=== PATIENT | female | born 1960 | race Caucasian/White ===

== ENCOUNTER 2017-02-10 22:50 | Inpatient (IN) | payer BC ==
[~2017-02-10] VITALS: Ht 175.3 cm; Wt 99.1 kg
[2017-02-10] MEDS ORDERED: ADENOSINE 6 MG/2 ML VIAL. IV ONE (23:05)
[2017-02-10] MEDS ORDERED: dilTIAZem IV PUSH 25 MG/5 ML VIAL ONE (23:05)
--- NOTE | 2017-02-10 23:20 | PHYS DOC ---
Adult General Chief Complaint Chief Complaint: CHEST PAIN HPI HPI Patient is a 56 year old female who presents with complaint of chest pain and dizziness that started approximately 1 hour prior to arrival. The patient states that she was driving home from a fast food restaurant and had consumed a slushy drink prior to onset of symptoms. Patient states that she started feeling pressure pain in her chest and stated that she was becoming very dizzy when trying to stand up. Due to persistent symptoms she came to the emergency department for evaluation. Patient states that she has had history of similar symptoms approximately 30 years ago and had to be on digoxin therapy but states that she was taken off of this medication shortly after and has not had any problems over the past 30 years. Patient states she recently had a cardiac workup one year ago and was told that she "didn't have any problems." Patient denies any fever or other symptoms earlier today. Patient states that she does not follow the primary doctor at this time. On my evaluation, patient rates her pain as 7 out of 10. Patient has not taken any medications to help with her symptoms at this time. Review of Systems Review of Systems Constitutional: Dizziness, denies fever or chills [] Eyes: Denies change in visual acuity, redness, or eye pain [] HENT: Denies nasal congestion or sore throat [] Respiratory: Denies cough or shortness of breath [] Cardiovascular: Chest pain, denies edema [] GI: Denies abdominal pain, nausea, vomiting, bloody stools or diarrhea [] : Denies dysuria or hematuria [] Musculoskeletal: Denies back pain or joint pain [] Integument: Denies rash or skin lesions [] Neurologic: Denies headache, focal weakness or sensory changes [] Current Medications Current Medications Current Medications Medications (Trade) Dose Ordered Sig/[facility] Start Time Stop Time Status Last Admin Dose Admin Adenosine (Adenocard) 6 mg STK-MED ONCE 02/10/17 23:05 02/10/17 23:06 DC Aspirin (Children'S Aspirin) 324 mg 1X ONCE 02/10/17 23:30 02/10/17 23:31 DC 02/10/17 23:30 324 MG Digoxin (Lanoxin) 500 mcg 1X ONCE 02/11/17 00:15 02/11/17 00:16 DC 02/11/17 00:20 500 MCG Diltiazem HCl (Cardizem) 25 mg 1X ONCE 02/10/17 23:45 02/10/17 23:46 DC 02/10/17 23:30 25 MG Diltiazem HCl 125 mg/Dextrose 125 ml @ 10 mls/hr 1X ONCE 02/10/17 23:30 02/11/17 11:59 02/10/17 23:42 10 MLS/HR Sodium Chloride 1,000 ml @ 100 mls/hr Q10H 02/10/17 23:30 02/11/17 09:29 02/10/17 23:30 100 MLS/HR Allergies Allergies Allergies Coded Allergies Type Severity Reaction Last Updated Verified Penicillins Allergy Intermediate 02/10/17 Yes Sulfa (Sulfonamide Antibiotics) Allergy Intermediate 02/10/17 Yes acetaminophen Allergy Intermediate 02/10/17 Yes oxycodone Allergy Intermediate 02/10/17 Yes prednisone Allergy Intermediate 02/10/17 Yes Physical Exam Physical Exam Constitutional: Alert, afebrile, appears in moderate discomfort. [] HENT: Normocephalic, atraumatic, bilateral external ears normal, oropharynx moist, no oral exudates, nose normal. [] Eyes: PERRLA, EOMI, conjunctiva normal, no discharge. [] Neck: Normal range of motion, no tenderness, supple, no stridor. [] Cardiovascular: Tachycardia, irregular rhythm, no murmur [] Lungs & Thorax: Bilateral breath sounds clear to auscultation [] Abdomen: Bowel sounds normal, soft, no tenderness, no masses, no pulsatile masses. [] Skin: Warm, dry, no erythema, no rash. [] Back: No tenderness, no CVA tenderness. [] Extremities: No tenderness, no cyanosis, no clubbing, ROM intact, no edema. [] Neurologic: Alert and oriented X 3, normal motor function, normal sensory function, no focal deficits noted. [] Current Patient Data Vital Signs Vital Signs Date Time Temp Pulse Resp B/P (MAP) Pulse Ox O2 Delivery O2 Flow Rate FiO2 02/11/17 00:20 144 168/86 02/11/17 00:11 16 96 Room Air 02/10/17 23:13 98.0 98.0 Lab Values Laboratory Tests Test 02/10/17 23:11 02/10/17 23:35 White Blood Count 3.6 x10^3/uL (4.0-11.0) L Red Blood Count 4.99 x10^6/uL (3.50-5.40) Hemoglobin 13.7 g/dL (12.0-15.5) Hematocrit 42.3 % (36.0-47.0) Mean Corpuscular Volume 85 fL (79-100) Mean Corpuscular Hemoglobin 28 pg (25-35) Mean Corpuscular Hemoglobin Concent 33 g/dL (31-37) Red Cell Distribution Width 14.3 % (11.5-14.5) Platelet Count 112 x10^3/uL (140-400) L Neutrophils (%) (Auto) 41 % (31-73) Lymphocytes (%) (Auto) 52 % (24-48) H Monocytes (%) (Auto) 5 % (0-9) Eosinophils (%) (Auto) 1 % (0-3) Basophils (%) (Auto) 1 % (0-3) Neutrophils # (Auto) 1.5 x10^3uL (1.8-7.7) L Lymphocytes # (Auto) 1.9 x10^3/uL (1.0-4.8) Monocytes # (Auto) 0.2 x10^3/uL (0.0-1.1) Eosinophils # (Auto) 0.0 x10^3/uL (0.0-0.7) Basophils # (Auto) 0.0 x10^3/uL (0.0-0.2) Segmented Neutrophils % 40 % (35-66) Band Neutrophils % 1 % (0-9) Lymphocytes % 46 % (24-48) Atypical Lymphocytes % (Manual) 7 % (0-0) H Monocytes % 5 % (0-10) Eosinophils % 1 % (0-5) Platelet Estimate Decreased (ADEQUATE) Prothrombin Time 12.2 SEC (11.7-14.0) Prothrombin Time INR 1.0 (0.8-1.1) Sodium Level 146 mmol/L (136-145) H Potassium Level 4.0 mmol/L (3.5-5.1) Chloride Level 107 mmol/L (98-107) Carbon Dioxide Level 29 mmol/L (21-32) Anion Gap 10 (6-14) Blood Urea Nitrogen 22 mg/dL (7-20) H Creatinine 1.0 mg/dL (0.6-1.0) Estimated GFR (Cockcroft-Gault) 57.4 Glucose Level 128 mg/dL (70-99) H Calcium Level 9.3 mg/dL (8.5-10.1) Magnesium Level 2.1 mg/dL (1.8-2.4) Total Bilirubin 0.3 mg/dL (0.2-1.0) Direct Bilirubin 0.1 mg/dL (0.0-0.2) Aspartate Amino Transferase (AST) 29 U/L (15-37) Alanine Aminotransferase (ALT) 42 U/L (14-59) Alkaline Phosphatase 150 U/L (46-116) H Creatine Kinase 138 U/L (26-192) Creatine Kinase MB (Mass) 1.1 ng/mL (0.0-3.6) Creatine Kinase MB Relative Index 0.8 % (0-4) Troponin I Quantitative < 0.017 ng/mL (0.000-0.055) WT-Gjx-I-Type Natriuretic Peptide 52 pg/mL (0-124) Total Protein 7.5 g/dL (6.4-8.2) Albumin 3.8 g/dL (3.4-5.0) Urine Collection Type Unknown Urine Color Yellow Urine Clarity Clear Urine pH 6.5 Urine Specific Hernandez <=1.005 Urine Protein Negative mg/dL (NEG-TRACE) Urine Glucose (UA) Negative mg/dL (NEG) Urine Ketones (Stick) Negative mg/dL (NEG) Urine Blood Negative (NEG) Urine Nitrite Negative (NEG) Urine Bilirubin Negative (NEG) Urine Urobilinogen Dipstick 0.2 mg/dL (0.2 mg/dL) Urine Leukocyte Esterase Negative (NEG) Urine RBC 0 /HPF (0-2) Urine WBC Occ /HPF (0-4) Urine Squamous Epithelial Cells Few /LPF Urine Bacteria 0 /HPF (0-FEW) Urine Opiates Screen Neg (NEG) Urine Methadone Screen Neg (NEG) Urine Barbiturates Neg (NEG) Urine Phencyclidine Screen Neg (NEG) Urine Amphetamine/Methamphetamine Neg (NEG) Urine Benzodiazepines Screen Neg (NEG) Urine Cocaine Screen Neg (NEG) Urine Cannabinoids Screen Neg (NEG) Urine Ethyl Alcohol Neg (NEG) Laboratory Tests 02/10/17 23:11 Laboratory Tests 02/10/17 23:11 EKG EKG Interpreted by me: Heart rate 188, atrial fibrillation with rapid ventricular response, normal axis, no acute ST/T-wave abnormalities present [] Radiology/Procedures Radiology/Procedures One view AP chest x-ray interpreted by me: No infiltrates, no effusions, normal cardiac silhouette [] Course & Med Decision Making Course & Med Decision Making Pertinent Labs and Imaging studies reviewed. (See chart for details) Patient found to be in A. fib with RVR. The patient was started on IV diltiazem in the emergency department and was given a total of 45 mg of IV push Cardizem with mild reduction in heart rate to the 150s. I consulted Dr. Head of cardiology who recommended that the patient be given a loading dose of 500 g of digoxin now and recommended 250 g of digoxin every 6 hours. This was started in the emergency department. Patient admitted to Dr. Yeh. Critical care time excluding procedures: 45 minutes Dragon Disclaimer Dragon Disclaimer This electronic medical record was generated, in whole or in part, using a voice recognition dictation system. Departure Departure Impression: Primary Impression: Atrial fibrillation with RVR Disposition: ADMITTED INPATIENT Admitting Physician: Pari Yeh Condition: GUARDED DORIE MICHEL MD February 10, 2017 23:20
[2017-02-10 23:30] LABS: CALCIUM 9.3 mg/dL (8.5-10.1); GFR 57.4
[2017-02-10] MEDS ORDERED: IV NORMAL SALINE 1000ML BAG 1,000 ML IV SCH (23:30)
[2017-02-10] MEDS ORDERED: dilTIAZem IV PUSH 25 MG/5 ML VIAL IVP ONE ×2 (23:30→23:45)
[2017-02-10] MEDS ORDERED: ASPIRIN CHEWABLE 81 MG TABLET. PO ONE (23:30)
[2017-02-10 23:35] LABS: BASO % 1 % (0-3); EOS % 1 % (0-3); HEMATOCRIT 42.3 % (36.0-47.0); HEMOGLOBIN 13.7 g/dL (12.0-15.5); LYMPH # 1.9 x10^3/uL (1.0-4.8); LYMPH % 52 % (24-48); MEAN CORPUSCULAR HEMOGLOBIN 28 pg (25-35); MEAN CORPUSCULAR HGB CONC 33 g/dL (31-37); MEAN CORPUSCULAR VOLUME 85 fL (79-100); MONO % 5 % (0-9); NEUT % 41 % (31-73); PLATELET COUNT 112 x10^3/uL (140-400); RED BLOOD COUNT 4.99 x10^6/uL (3.50-5.40); RED CELL DISTRIBUTION WIDTH 14.3 % (11.5-14.5); WHITE BLOOD COUNT 3.6 x10^3/uL (4.0-11.0)
[2017-02-10 23:38] LABS: ALBUMIN 3.8 g/dL (3.4-5.0); DIRECT BILIRUBIN 0.1 mg/dL (0.0-0.2); MAGNESIUM 2.1 mg/dL (1.8-2.4); PROTHROMBIN TIME PATIENT 12.2 SEC (11.7-14.0); TOTAL BILIRUBIN 0.3 mg/dL (0.2-1.0); TOTAL PROTEIN 7.5 g/dL (6.4-8.2)
[2017-02-10 23:43] LABS: CKMB MASS 1.1 ng/mL (0.0-3.6)
[2017-02-10 23:46] LABS: BILIRUBIN,URINE NEGATIVE (NEG); GLUCOSE,URINE NEGATIVE (NEG); NITRITE,URINE NEGATIVE (NEG); PH,URINE 6.5; PROTEIN,URINE NEGATIVE (NEG-TRACE); UROBILINOGEN,URINE 0.2 mg/dL (0.2 mg/dL)
[2017-02-10 23:54] LABS: BARBITURATES NEG (NEG); BENZODIAZEPINES NEG (NEG); CANNABINOIDS NEG (NEG); COCAINE NEG (NEG); METHADONE NEG (NEG); OPIATES NEG (NEG); PHENCYCLIDINE NEG (NEG)
[2017-02-10 23:56] LABS: BACTERIA,URINE 0 /HPF (0-FEW); RBC,URINE 0 /HPF (0-2); WBC,URINE OCC /HPF (0-4)
[2017-02-10 23:57] LABS: SQUAMOUS EPITHELIAL CELL,UR FEW /LPF
[2017-02-11] VITALS (7 sets, daily range): BP systolic 114–145; BP diastolic 57–87
[2017-02-11] MEDS ORDERED: DIGOXIN IV 500 MCG/2 ML AMPUL. IV ONE (00:15)
[2017-02-11] MEDS: IV NORMAL SALINE 1000ML BAG 1,000 ML IV SCH ×2 (00:30→10:30)
--- NOTE | 2017-02-11 00:38 | ACF ---
Admit Criteria Forms Admit Criteria Forms Admit Criteria Forms ATRIAL FIBRILLATION Clinical Indications for Admission to Inpatient Care (Place 'X' for any and all applicable criteria): Admission indicated for ANY ONE of the following(1)(2)(3)(4)(5) : [ ]I. Myocardial ischemia [ ]II. Dyspnea or hypoxemia [X ]III. Hemodynamic instability [ ]IV. Heart failure (e.g., pulmonary edema) (7) [ ]V. New-onset (less than 48 hours) atrial fibrillation with high risk for causing complications secondary to comorbidities (eg, symptomatic heart failure ) [ ]. Altered mental status [ ]VII. Syncope [ ]VIII. Patient has implantable cardioverter defibrillator that has fired more than once within past 24hr or needs immediate adjustment of settings that cannot be done other than in inpatient setting. (8) [ ]IX. Suspected accessory pathway (e.g., Mpuxu-Nbylewbal-Cqvbc syndrome) on ECG [ ]X. Recent systemic thromboembolism (eg, stroke) [ ]XI. Medication toxicity (e.g., digitalis) causing arrhythmia(9) [ ]XII. Underlying medical condition that necessitates inpatient care (e.g., thyrotoxicosis, pneumonia) (10) [ ]XIII. Continuous ECG monitoring is required for condition causing arrhythmia (e.g., severe hyperkalemia, hypokalemia, acid-base disturbance).(11)(12)(13) [ ]XIV. Initiation of antiarrhythmic drug therapy is needed in patient at high risk of adverse effects as indicated by ANY ONE of the following: [ ]a) Significant structural heart disease (e.g., reduced ejection fraction, congenital heart disease, valvular heart disease) [ ]b) Prolonged QT interval [ ]c) Underlying sinus node or atrioventricular conduction disturbances [ ]d) Need for treatment with antiarrhythmic drugs that have significant proarrhythmic potential (e.g., dofetilide, sotalol, procainamide) [ ]e) Patient whose sinus rhythm has never been observed on ECG [ ]XV. Intolerable symptoms despite optimal outpatient treatment [ ]XVI. Elective or urgent cardioversion that cannot be performed on outpatient basis or during observation care. [A] (Use also Atrial Fibrillation: Observation Care ) as appropriate.(14) [ ]XVII.Contraindications and/or Inappropriate clinical situations for Observational Care in patients with Atrial Fibrillation, when ANY ONE of the following is required: [ ]a) Patient with High risk of cardiac embolism (e.g, patients with previous cardiac embolism, LVEF < 40%, age >75 and patients with prosthetic valve) 18 [ ]b) Patient with Moderate risk including DM patient, CAD and patient aged 65-75 18 [ ]c) Patient with any change in cardiac biomarker especially troponin should be managed as high risk in an inpatient setting 19 [ ]d) Physician judgement irrespective of ECG and other diagnostic findings 20 [ ]XVIII.General contraindications and/or Inappropriate clinical situations for Observational Care in patients with Atrial Fibrillation, when ANY ONE of the following is required: [ ]a) Prediction of prolongation of LOS based on ANY ONE of the following may be considered as a contraindication for observational care 2, 3, 4, 5, 6, 7, 8, 9, 10, 11 [ ]i) Age > 65 yrs. [ ]ii) Patient arriving by ambulance [ ]iii) Patient with high acuity [ ]iv) Patient requiring vital sign monitoring [ ]v) Patient on IV medication [ ]b) Systolic blood pressures 180mmHg 3,12 [ ]c) Patient with altered mental status including delirium and other alteration of consciousness3 [ ]d) Patient whose discharge disposition will be to a long term home or rehabilitation home should not be managed in Emergency Department Observation Unit. CMS rule requires 3 days hospital stay before such placement.3,13 [ ]e) Patient with failure to thrive due to broad array of etiologies 3,16,17 [ ]f) Inability to ambulate 3,14 Extended stay beyond goal length of stay may be needed for (1)(25)(26): [ ]a) Unstable comorbidities [ ]b) Persistently uncontrolled atrial fibrillation or other arrhythmias [ ]c) Acute thromboembolic event (e.g., stroke, limb ischemia) [ ]d) Need for inpatient attainment of full anticoagulation The original [employer] content created by [employer] has been revised. The portions of the content which have been revised are identified through the use of italic text or in bold, and [employer] has neither reviewed nor approved the modified material. All other unmodified content is copyright [employer]. Please see references footnoted in the original [employer] edition 2016 MARLON SUMNER February 11, 2017 00:38
[2017-02-11] MEDS ORDERED: ONDANSETRON PF 4 MG/2 ML VIAL. IV PRN ×2 (00:45→08:40)
[2017-02-11 03:59] LABS: % EOS 1 % (0-5)
[2017-02-11 04:00] LABS: PLT ESTIMATE DECREASED (ADEQUATE)
[2017-02-11] MEDS ORDERED: LATA2.5D3 EACHEYE (04:52)
[2017-02-11] MEDS ORDERED: ESTR1PAT42 (05:01)
[2017-02-11] MEDS ORDERED: LEVO88TA2 PO (05:01)
[2017-02-11] MEDS ORDERED: DIGOXIN IV 500 MCG/2 ML AMPUL. IV SCH (06:00)
--- NOTE | 2017-02-11 07:34 | EKG ---
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
--- NOTE | 2017-02-11 08:07 | RAD ---
Portable AP chest. History: Chest pain AP view was taken of the chest. Lungs are free of confluent areas of infiltrate. The heart is normal in size. There is no pleural effusion. Impression: 1. No acute chest disease.
[2017-02-11 09:11] LABS: FREE T4 1.04 ng/dL (0.76-1.46)
--- NOTE | 2017-02-11 10:19 | PDOC2 ---
CONSULT Date of Consult Date of Consult DATE: 02/11/17 TIME: 10:12 Reason for Consult Reason for Consult: Atrial fibrillation Referring Physician Referring Physician: Dr. Landon Identification/Chief Complaint Chief Complaint Chest pain and palpitations Source Source: Chart review, Patient History of Present Illness Reason for Visit: 56-year-old female presented with palpitations associated with retrosternal chest pressure and mild dizziness that started one hour prior to presentation. She was found to be in atrial fibrillation with rapid ventricular response and started on intravenous Cardizem infusion and digoxin. She converted to sinus rhythm earlier this morning and feels much better. She denied any chest pain or dyspnea on exertion prior to this episode. She also stated that she was diagnosed with some kind of arrhythmia 30 years ago and placed on digoxin. This was subsequently stopped and she has not had any further cardiology follow-up. Past Medical History Endocrine: Hypothyroidism Past Surgical History Past Surgical History: No pertinent history Family History Family History Negative for premature coronary artery disease Social History Social History Patient denied any smoking alcohol or drug use Current Problem List Problem List Problems Medical Problems: (1) Atrial fibrillation with RVR Status: Acute Current Medications Current Medications Current Medications Adenosine (Adenocard) 6 mg STK-MED ONCE IV ; Start 02/10/17 at 23:05; Stop 02/10 at 23:06; Status DC Diltiazem HCl (Cardizem) 25 mg STK-MED ONCE .ROUTE ; Start 02/10/17 at 23:05; Stop 02/10/17 at 23:06; Status DC Diltiazem HCl (Cardizem) 20 mg 1X ONCE IVP Last administered on 02/10/17 23: 10; Start 02/10/17 at 23:30; Stop 02/10/17 at 23:31; Status DC Aspirin (Children'S Aspirin) 324 mg 1X ONCE PO Last administered on 02/10/17 23:30; Start 02/10/17 at 23:30; Stop 02/10/17 at 23:31; Status DC Diltiazem HCl 125 mg/Dextrose 125 ml @ 10 mls/hr 1X ONCE IV Last administered on 02/10/17 23:42; Start 02/10/17 at 23:30; Stop 02/11/17 at 11:59 Sodium Chloride 1,000 ml @ 100 mls/hr Q10H IV Last administered on 02/10/17 23:30; Start 02/10/17 at 23:30; Stop 02/11/17 at 09:29; Status DC Diltiazem HCl (Cardizem) 25 mg 1X ONCE IVP Last administered on 02/10/17 23: 30; Start 02/10/17 at 23:45; Stop 02/10/17 at 23:46; Status DC Digoxin (Lanoxin) 500 mcg 1X ONCE IV Last administered on 02/11/17 00:20; Start 02/11/17 at 00:15; Stop 02/11/17 at 00:16; Status DC Ondansetron HCl (Zofran) 4 mg PRN Q8HRS PRN IV NAUSEA/VOMITING; Start 02/11/17 at 00:45; Stop 02/11/17 at 08:42; Status DC Sodium Chloride 1,000 ml @ 100 mls/hr Q10H IV ; Start 02/11/17 at 00:30; Stop 02/12/17 at 00:29 Digoxin (Lanoxin) 250 mcg Q6HRS IV ; Start 02/11/17 at 06:00; Stop 02/11/17 at 08:10; Status DC Ondansetron HCl (Zofran) 4 mg PRN Q6HRS PRN IV NAUSEA/VOMITING; Start 02/11/17 at 08:40; Stop 02/12/17 at 08:39 Latanoprost (Xalatan) 1 drop QHS OU ; Start 02/11/17 at 21:00 Levothyroxine Sodium (Synthroid) 88 mcg DAILY PO ; Start 02/11/17 at 10:30 Active Scripts Active Reported Synthroid (Levothyroxine Sodium) 88 Mcg Tablet 88 Mcg PO DAILY [place] (Estradiol) 1 Each Patch.tdwk Latanoprost 2.5 Ml Drops 1 Drop EACHEYE QHS Allergies Allergies: Coded Allergies: Penicillins (Verified Allergy, Intermediate, 02/10/17) Sulfa (Sulfonamide Antibiotics) (Verified Allergy, Intermediate, 02/10/17) acetaminophen (Verified Allergy, Intermediate, 02/10/17) oxycodone (Verified Allergy, Intermediate, 02/10/17) prednisone (Verified Allergy, Intermediate, 02/10/17) ROS PSYCHOLOGICAL ROS: No: Hallucinations Eyes: No Loss of vision HEENT: No: Epistaxis Respiratory: No: Cough, Hemoptysis, Shortness of breath Cardiovascular: yes Chest Pain, yes Palpitations Gastrointestinal: No Vomiting Neurological: No Seizures Skin: No Rash Physical Exam General: Alert, Oriented X3 HEENT: Atraumatic, PERRLA Lungs: Clear to auscultation Heart: Regular rate Abdomen: Soft Extremities: No edema Neuro: Normal gait Psych/Mental Status: Mood NL Vitals VITALS Vital Signs Date Time Temp Pulse Resp B/P (MAP) Pulse Ox O2 Delivery O2 Flow Rate FiO2 02/11/17 07:32 98.1 84 18 118/65 (82) 96 Room Air 98.1 Labs Labs Laboratory Tests Test 02/10/17 23:11 02/10/17 23:35 02/11/17 06:16 White Blood Count 3.6 x10^3/uL (4.0-11.0) Red Blood Count 4.99 x10^6/uL (3.50-5.40) Hemoglobin 13.7 g/dL (12.0-15.5) Hematocrit 42.3 % (36.0-47.0) Mean Corpuscular Volume 85 fL (79-100) Mean Corpuscular Hemoglobin 28 pg (25-35) Mean Corpuscular Hemoglobin Concent 33 g/dL (31-37) Red Cell Distribution Width 14.3 % (11.5-14.5) Platelet Count 112 x10^3/uL (140-400) Neutrophils (%) (Auto) 41 % (31-73) Lymphocytes (%) (Auto) 52 % (24-48) Monocytes (%) (Auto) 5 % (0-9) Eosinophils (%) (Auto) 1 % (0-3) Basophils (%) (Auto) 1 % (0-3) Neutrophils # (Auto) 1.5 x10^3uL (1.8-7.7) Lymphocytes # (Auto) 1.9 x10^3/uL (1.0-4.8) Monocytes # (Auto) 0.2 x10^3/uL (0.0-1.1) Eosinophils # (Auto) 0.0 x10^3/uL (0.0-0.7) Basophils # (Auto) 0.0 x10^3/uL (0.0-0.2) Segmented Neutrophils % 40 % (35-66) Band Neutrophils % 1 % (0-9) Lymphocytes % 46 % (24-48) Atypical Lymphocytes % (Manual) 7 % (0-0) Monocytes % 5 % (0-10) Eosinophils % 1 % (0-5) Platelet Estimate Decreased (ADEQUATE) Prothrombin Time 12.2 SEC (11.7-14.0) Prothromb Time International Ratio 1.0 (0.8-1.1) Sodium Level 146 mmol/L (136-145) Potassium Level 4.0 mmol/L (3.5-5.1) Chloride Level 107 mmol/L (98-107) Carbon Dioxide Level 29 mmol/L (21-32) Anion Gap 10 (6-14) Blood Urea Nitrogen 22 mg/dL (7-20) Creatinine 1.0 mg/dL (0.6-1.0) Estimated GFR (Cockcroft-Gault) 57.4 Glucose Level 128 mg/dL (70-99) Calcium Level 9.3 mg/dL (8.5-10.1) Magnesium Level 2.1 mg/dL (1.8-2.4) Total Bilirubin 0.3 mg/dL (0.2-1.0) Direct Bilirubin 0.1 mg/dL (0.0-0.2) Aspartate Amino Transf (AST/SGOT) 29 U/L (15-37) Alanine Aminotransferase (ALT/SGPT) 42 U/L (14-59) Alkaline Phosphatase 150 U/L (46-116) Creatine Kinase 138 U/L (26-192) Creatine Kinase MB (Mass) 1.1 ng/mL (0.0-3.6) Creatine Kinase MB Relative Index 0.8 % (0-4) Troponin I Quantitative < 0.017 ng/mL (0.000-0.055) 0.021 ng/mL (0.000-0.055) EP-Dqp-L-Type Natriuretic Peptide 52 pg/mL (0-124) Total Protein 7.5 g/dL (6.4-8.2) Albumin 3.8 g/dL (3.4-5.0) Urine Collection Type Unknown Urine Color Yellow Urine Clarity Clear Urine pH 6.5 Urine Specific [place] <=1.005 Urine Protein Negative mg/dL (NEG-TRACE) Urine Glucose (UA) Negative mg/dL (NEG) Urine Ketones (Stick) Negative mg/dL (NEG) Urine Blood Negative (NEG) Urine Nitrite Negative (NEG) Urine Bilirubin Negative (NEG) Urine Urobilinogen Dipstick 0.2 mg/dL (0.2 mg/dL) Urine Leukocyte Esterase Negative (NEG) Urine RBC 0 /HPF (0-2) Urine WBC Occ /HPF (0-4) Urine Squamous Epithelial Cells Few /LPF Urine Bacteria 0 /HPF (0-FEW) Urine Opiates Screen Neg (NEG) Urine Methadone Screen Neg (NEG) Urine Barbiturates Neg (NEG) Urine Phencyclidine Screen Neg (NEG) Urine Amphetamine/Methamphetamine Neg (NEG) Urine Benzodiazepines Screen Neg (NEG) Urine Cocaine Screen Neg (NEG) Urine Cannabinoids Screen Neg (NEG) Urine Ethyl Alcohol Neg (NEG) Thyroid Stimulating Hormone (TSH) 4.381 uIU/mL (0.358-3.74) Free Thyroxine 1.04 ng/dL (0.76-1.46) Free Triiodothyronine (T3) pg/mL 2.60 pg/mL (2.18-3.98) Laboratory Tests Test 02/10/17 23:11 02/10/17 23:35 02/11/17 06:16 White Blood Count 3.6 x10^3/uL (4.0-11.0) Red Blood Count 4.99 x10^6/uL (3.50-5.40) Hemoglobin 13.7 g/dL (12.0-15.5) Hematocrit 42.3 % (36.0-47.0) Mean Corpuscular Volume 85 fL (79-100) Mean Corpuscular Hemoglobin 28 pg (25-35) Mean Corpuscular Hemoglobin Concent 33 g/dL (31-37) Red Cell Distribution Width 14.3 % (11.5-14.5) Platelet Count 112 x10^3/uL (140-400) Neutrophils (%) (Auto) 41 % (31-73) Lymphocytes (%) (Auto) 52 % (24-48) Monocytes (%) (Auto) 5 % (0-9) Eosinophils (%) (Auto) 1 % (0-3) Basophils (%) (Auto) 1 % (0-3) Neutrophils # (Auto) 1.5 x10^3uL (1.8-7.7) Lymphocytes # (Auto) 1.9 x10^3/uL (1.0-4.8) Monocytes # (Auto) 0.2 x10^3/uL (0.0-1.1) Eosinophils # (Auto) 0.0 x10^3/uL (0.0-0.7) Basophils # (Auto) 0.0 x10^3/uL (0.0-0.2) Segmented Neutrophils % 40 % (35-66) Band Neutrophils % 1 % (0-9) Lymphocytes % 46 % (24-48) Atypical Lymphocytes % (Manual) 7 % (0-0) Monocytes % 5 % (0-10) Eosinophils % 1 % (0-5) Platelet Estimate Decreased (ADEQUATE) Prothrombin Time 12.2 SEC (11.7-14.0) Prothromb Time International Ratio 1.0 (0.8-1.1) Sodium Level 146 mmol/L (136-145) Potassium Level 4.0 mmol/L (3.5-5.1) Chloride Level 107 mmol/L (98-107) Carbon Dioxide Level 29 mmol/L (21-32) Anion Gap 10 (6-14) Blood Urea Nitrogen 22 mg/dL (7-20) Creatinine 1.0 mg/dL (0.6-1.0) Estimated GFR (Cockcroft-Gault) 57.4 Glucose Level 128 mg/dL (70-99) Calcium Level 9.3 mg/dL (8.5-10.1) Magnesium Level 2.1 mg/dL (1.8-2.4) Total Bilirubin 0.3 mg/dL (0.2-1.0) Direct Bilirubin 0.1 mg/dL (0.0-0.2) Aspartate Amino Transf (AST/SGOT) 29 U/L (15-37) Alanine Aminotransferase (ALT/SGPT) 42 U/L (14-59) Alkaline Phosphatase 150 U/L (46-116) Creatine Kinase 138 U/L (26-192) Creatine Kinase MB (Mass) 1.1 ng/mL (0.0-3.6) Creatine Kinase MB Relative Index 0.8 % (0-4) Troponin I Quantitative < 0.017 ng/mL (0.000-0.055) 0.021 ng/mL (0.000-0.055) TQ-Ulx-M-Type Natriuretic Peptide 52 pg/mL (0-124) Total Protein 7.5 g/dL (6.4-8.2) Albumin 3.8 g/dL (3.4-5.0) Urine Collection Type Unknown Urine Color Yellow Urine Clarity Clear Urine pH 6.5 Urine Specific [place] <=1.005 Urine Protein Negative mg/dL (NEG-TRACE) Urine Glucose (UA) Negative mg/dL (NEG) Urine Ketones (Stick) Negative mg/dL (NEG) Urine Blood Negative (NEG) Urine Nitrite Negative (NEG) Urine Bilirubin Negative (NEG) Urine Urobilinogen Dipstick 0.2 mg/dL (0.2 mg/dL) Urine Leukocyte Esterase Negative (NEG) Urine RBC 0 /HPF (0-2) Urine WBC Occ /HPF (0-4) Urine Squamous Epithelial Cells Few /LPF Urine Bacteria 0 /HPF (0-FEW) Urine Opiates Screen Neg (NEG) Urine Methadone Screen Neg (NEG) Urine Barbiturates Neg (NEG) Urine Phencyclidine Screen Neg (NEG) Urine Amphetamine/Methamphetamine Neg (NEG) Urine Benzodiazepines Screen Neg (NEG) Urine Cocaine Screen Neg (NEG) Urine Cannabinoids Screen Neg (NEG) Urine Ethyl Alcohol Neg (NEG) Thyroid Stimulating Hormone (TSH) 4.381 uIU/mL (0.358-3.74) Free Thyroxine 1.04 ng/dL (0.76-1.46) Free Triiodothyronine (T3) pg/mL 2.60 pg/mL (2.18-3.98) Assessment/Plan Assessment/Plan 1. Atrial fibrillation with rapid ventricular response, presently back in sinus rhythm. Change Cardizem to by mouth. Her free T3 and T4 levels of within normal limits. The chest pain she had prior to presentation is most probably secondary to rapid ventricular response. We will check 2-D echo to assess LV systolic function and Lexiscan nuclear stress test to rule out ischemia. Her CHADS-Vasc score is low at 1. We will treat her with aspirin without any long- term anticoagulation. 2. Hypothyroidism: On levothyroxine Thank you for your consultation ALBA YEPEZ MD February 11, 2017 10:19
[2017-02-11] MEDS: LEVOTHYROXINE 88 MCG TABLET PO SCH (10:30)
--- NOTE | 2017-02-11 10:50 | PDOC1 ---
History and Physical Date of Admission Date of Admission DATE: 02/11/17 TIME: 10:50 Identification/Chief Complaint Chief Complaint chest pain, dizziness Problems: Source Source: Caregiver, Chart review, Patient History of Present Illness History of Present Illness 56 y/o female admitted bec of CP 03/25, left sided, no precipitating factor, happened at rest, associated with dizziness and palpitations, no ther sxs, no radiation, no known alleviating factors. Happened on day of admission. SImilar to prior episode some 25-30 yrs ago, was found to be in atrial fib that seemed to have resolved or was UR. Mentioned did being put on digoxin but was taken off. Found to be in atrial fib RVR HR 177 on admit, EKG ok, labs ok, On synthroid at home, levels scheduled to be checked next week. On cardizem 10 mcgs now, planned for MPI and echo ravi and to be tapered off gtt SOme headache and CP now, rest of family updated,. Dw pt and RN Past Medical History Endocrine: Hypothyroidism Past Surgical History Past Surgical History: No pertinent history Family History Family History: Hypertension Social History Smoke: No ALCOHOL: none Drugs: None Current Problem List Problem List Problems Medical Problems: (1) Atrial fibrillation with RVR Status: Acute Problems: Current Medications Current Medications Current Medications Adenosine (Adenocard) 6 mg STK-MED ONCE IV ; Start 02/10/17 at 23:05; Stop 02/10 at 23:06; Status DC Diltiazem HCl (Cardizem) 25 mg STK-MED ONCE .ROUTE ; Start 02/10/17 at 23:05; Stop 02/10/17 at 23:06; Status DC Diltiazem HCl (Cardizem) 20 mg 1X ONCE IVP Last administered on 02/10/17 23: 10; Start 02/10/17 at 23:30; Stop 02/10/17 at 23:31; Status DC Aspirin (Children'S Aspirin) 324 mg 1X ONCE PO Last administered on 02/10/17 23:30; Start 02/10/17 at 23:30; Stop 02/10/17 at 23:31; Status DC Diltiazem HCl 125 mg/Dextrose 125 ml @ 10 mls/hr 1X ONCE IV Last administered on 02/10/17 23:42; Start 02/10/17 at 23:30; Stop 02/11/17 at 10:22 ; Status DC Sodium Chloride 1,000 ml @ 100 mls/hr Q10H IV Last administered on 02/10/17 23:30; Start 02/10/17 at 23:30; Stop 02/11/17 at 09:29; Status DC Diltiazem HCl (Cardizem) 25 mg 1X ONCE IVP Last administered on 02/10/17 23: 30; Start 02/10/17 at 23:45; Stop 02/10/17 at 23:46; Status DC Digoxin (Lanoxin) 500 mcg 1X ONCE IV Last administered on 02/11/17 00:20; Start 02/11/17 at 00:15; Stop 02/11/17 at 10:22; Status DC Ondansetron HCl (Zofran) 4 mg PRN Q8HRS PRN IV NAUSEA/VOMITING; Start 02/11/17 at 00:45; Stop 02/11/17 at 08:42; Status DC Sodium Chloride 1,000 ml @ 100 mls/hr Q10H IV ; Start 02/11/17 at 00:30; Stop 02/12/17 at 00:29 Digoxin (Lanoxin) 250 mcg Q6HRS IV ; Start 02/11/17 at 06:00; Stop 02/11/17 at 08:10; Status DC Ondansetron HCl (Zofran) 4 mg PRN Q6HRS PRN IV NAUSEA/VOMITING; Start 02/11/17 at 08:40; Stop 02/12/17 at 08:39 Latanoprost (Xalatan) 1 drop QHS OU ; Start 02/11/17 at 21:00 Levothyroxine Sodium (Synthroid) 88 mcg DAILY PO ; Start 02/11/17 at 10:30 Diltiazem HCl (Cardizem 24hr Cd) 120 mg DAILY PO ; Start 02/11/17 at 10:30 Aspirin (Ecotrin) 81 mg DAILYWBKFT PO ; Start 02/11/17 at 10:30 Active Scripts Active Reported Synthroid (Levothyroxine Sodium) 88 Mcg Tablet 88 Mcg PO DAILY [place] (Estradiol) 1 Each Patch.tdwk Latanoprost 2.5 Ml Drops 1 Drop EACHEYE QHS Allergies Allergies: Coded Allergies: Penicillins (Verified Allergy, Intermediate, 02/10/17) Sulfa (Sulfonamide Antibiotics) (Verified Allergy, Intermediate, 02/10/17) acetaminophen (Verified Allergy, Intermediate, 02/10/17) oxycodone (Verified Allergy, Intermediate, 02/10/17) prednisone (Verified Allergy, Intermediate, 02/10/17) ROS General: YES: Other (dizziness) PSYCHOLOGICAL ROS: No: Anxiety, Behavioral Disorder, Concentration difficultie , Decreased libido, Depression, Disorientation, Hallucinations, Hostility, Irritablity, Memory difficulties, Mood Swings, Obsessive thoughts, Physical abuse, Sexual abuse, Sleep disturbances, Suicidal ideation, Other Eyes: No Blurry vision, No Decreased vision, No Double vision, No Dry eyes, No Excessive tearing, No Eye Pain, No Itchy Eyes, No Loss of vision, No Photophobia , No Scotomata, No Uses contacts, No Uses glasses, No Other HEENT: No: Heacaches, Visual Changes, Hearing change, Nasal congestion, Nasal discharge, Oral lesions, Sinus pain, Sore Throat, Epistaxis, Sneezing, Snoring, Tinnitus, Vertigo, Vocal changes, Other ALLERGY AND IMMUNOLOGY: No: Hives, Insect Bite Sensitivity, Itchy/Watery Eyes, Nasal Congestion, Post Nasal Drip, Seasonal Allergies, Other Hematological and Lymphatic: No: Bleeding Problems, Blood Clots, Blood Transfusions, Brusing, Night Sweats, Pallor, Swollen Lymph Nodes, Other ENDOCRINE: No: Breast Changes, Galactorrhea, Hair Pattern Changes, Hot Flashes , Malaise/lethargy, Mood Swings, Palpitations, Polydipsia/polyuria, Skin Changes , Temperature Intolerance, Unexpected Weight Changes, Other Breast: No New/Changing Breast Lumps, No Nipple changes, No Nipple discharge, No Other Respiratory: No: Cough, Hemoptysis, Orthopnea, Pleuritic Pain, Shortness of breath, SOB with excertion, Sputum Changes, Stridor, Tachypnea, Wheezing, Other Cardiovascular: yes Chest Pain, yes Palpitations Gastrointestinal: No Nausea, No Vomiting, No Abdominal Pain, No Diarrhea, No Constipation, No Melena, No Hematochezia, No Other Genitourinary: No Dysuria, No Frequency, No Incontinence, No Hematuria, No Retention, No Discharge, No Urgency, No Pain, No Flank Pain, No Other, No , No , No , No , No , No , No Neurological: Yes Dizziness Skin: No Dry Skin, No Eczema, No Hair Changes, No Lumps, No Mole Changes, No Mottling, No Nail Changes, No Pruritus, No Rash, No Skin Lesion Changes, No Other, No Acne Physical Exam General: Alert, Oriented X3, Cooperative, No acute distress HEENT: PERRLA, EOMI Lungs: Clear to auscultation, Normal air movement Heart: S1S2, no gallops, no murmurs, irregularly irregular Cardiovascular: Other (HR 85 at 10 mcgs cardizem) Breasts: Normal, Rt breast nml w/o mass, Lt breast nml w/o mass, Nipples normal Abdomen: Normal bowel sounds, Soft, No tenderness, No hepatosplenomegaly, No masses Male Genitals Exam: normal genitalia, normal prostate Rectal Exam: not examined PELVIC: Nml ext genitalia Extremities: No clubbing, No cyanosis, No edema, Normal pulses, No tenderness/ swelling Skin: No rashes, No breakdown, No significant lesion Neuro: Normal gait, Normal speech, Strength at 5/5 X4 ext, Normal tone, Sensation intact, Cranial nerves 3-12 NL, Reflexes 2+ Psych/Mental Status: Mental status NL, Mood NL Vitals Vitals Vital Signs Date Time Temp Pulse Resp B/P (MAP) Pulse Ox O2 Delivery O2 Flow Rate FiO2 02/11/17 10:32 97.9 79 19 125/62 (83) 95 Room Air 97.9 Labs Labs Laboratory Tests Test 02/10/17 23:11 02/10/17 23:35 02/11/17 06:16 White Blood Count 3.6 x10^3/uL (4.0-11.0) Red Blood Count 4.99 x10^6/uL (3.50-5.40) Hemoglobin 13.7 g/dL (12.0-15.5) Hematocrit 42.3 % (36.0-47.0) Mean Corpuscular Volume 85 fL (79-100) Mean Corpuscular Hemoglobin 28 pg (25-35) Mean Corpuscular Hemoglobin Concent 33 g/dL (31-37) Red Cell Distribution Width 14.3 % (11.5-14.5) Platelet Count 112 x10^3/uL (140-400) Neutrophils (%) (Auto) 41 % (31-73) Lymphocytes (%) (Auto) 52 % (24-48) Monocytes (%) (Auto) 5 % (0-9) Eosinophils (%) (Auto) 1 % (0-3) Basophils (%) (Auto) 1 % (0-3) Neutrophils # (Auto) 1.5 x10^3uL (1.8-7.7) Lymphocytes # (Auto) 1.9 x10^3/uL (1.0-4.8) Monocytes # (Auto) 0.2 x10^3/uL (0.0-1.1) Eosinophils # (Auto) 0.0 x10^3/uL (0.0-0.7) Basophils # (Auto) 0.0 x10^3/uL (0.0-0.2) Segmented Neutrophils % 40 % (35-66) Band Neutrophils % 1 % (0-9) Lymphocytes % 46 % (24-48) Atypical Lymphocytes % (Manual) 7 % (0-0) Monocytes % 5 % (0-10) Eosinophils % 1 % (0-5) Platelet Estimate Decreased (ADEQUATE) Prothrombin Time 12.2 SEC (11.7-14.0) Prothromb Time International Ratio 1.0 (0.8-1.1) Sodium Level 146 mmol/L (136-145) Potassium Level 4.0 mmol/L (3.5-5.1) Chloride Level 107 mmol/L (98-107) Carbon Dioxide Level 29 mmol/L (21-32) Anion Gap 10 (6-14) Blood Urea Nitrogen 22 mg/dL (7-20) Creatinine 1.0 mg/dL (0.6-1.0) Estimated GFR (Cockcroft-Gault) 57.4 Glucose Level 128 mg/dL (70-99) Calcium Level 9.3 mg/dL (8.5-10.1) Magnesium Level 2.1 mg/dL (1.8-2.4) Total Bilirubin 0.3 mg/dL (0.2-1.0) Direct Bilirubin 0.1 mg/dL (0.0-0.2) Aspartate Amino Transf (AST/SGOT) 29 U/L (15-37) Alanine Aminotransferase (ALT/SGPT) 42 U/L (14-59) Alkaline Phosphatase 150 U/L (46-116) Creatine Kinase 138 U/L (26-192) Creatine Kinase MB (Mass) 1.1 ng/mL (0.0-3.6) Creatine Kinase MB Relative Index 0.8 % (0-4) Troponin I Quantitative < 0.017 ng/mL (0.000-0.055) 0.021 ng/mL (0.000-0.055) US-Sxc-U-Type Natriuretic Peptide 52 pg/mL (0-124) Total Protein 7.5 g/dL (6.4-8.2) Albumin 3.8 g/dL (3.4-5.0) Urine Collection Type Unknown Urine Color Yellow Urine Clarity Clear Urine pH 6.5 Urine Specific [place] <=1.005 Urine Protein Negative mg/dL (NEG-TRACE) Urine Glucose (UA) Negative mg/dL (NEG) Urine Ketones (Stick) Negative mg/dL (NEG) Urine Blood Negative (NEG) Urine Nitrite Negative (NEG) Urine Bilirubin Negative (NEG) Urine Urobilinogen Dipstick 0.2 mg/dL (0.2 mg/dL) Urine Leukocyte Esterase Negative (NEG) Urine RBC 0 /HPF (0-2) Urine WBC Occ /HPF (0-4) Urine Squamous Epithelial Cells Few /LPF Urine Bacteria 0 /HPF (0-FEW) Urine Opiates Screen Neg (NEG) Urine Methadone Screen Neg (NEG) Urine Barbiturates Neg (NEG) Urine Phencyclidine Screen Neg (NEG) Urine Amphetamine/Methamphetamine Neg (NEG) Urine Benzodiazepines Screen Neg (NEG) Urine Cocaine Screen Neg (NEG) Urine Cannabinoids Screen Neg (NEG) Urine Ethyl Alcohol Neg (NEG) Thyroid Stimulating Hormone (TSH) 4.381 uIU/mL (0.358-3.74) Free Thyroxine 1.04 ng/dL (0.76-1.46) Free Triiodothyronine (T3) pg/mL 2.60 pg/mL (2.18-3.98) Laboratory Tests Test 02/10/17 23:11 02/10/17 23:35 02/11/17 06:16 White Blood Count 3.6 x10^3/uL (4.0-11.0) Red Blood Count 4.99 x10^6/uL (3.50-5.40) Hemoglobin 13.7 g/dL (12.0-15.5) Hematocrit 42.3 % (36.0-47.0) Mean Corpuscular Volume 85 fL (79-100) Mean Corpuscular Hemoglobin 28 pg (25-35) Mean Corpuscular Hemoglobin Concent 33 g/dL (31-37) Red Cell Distribution Width 14.3 % (11.5-14.5) Platelet Count 112 x10^3/uL (140-400) Neutrophils (%) (Auto) 41 % (31-73) Lymphocytes (%) (Auto) 52 % (24-48) Monocytes (%) (Auto) 5 % (0-9) Eosinophils (%) (Auto) 1 % (0-3) Basophils (%) (Auto) 1 % (0-3) Neutrophils # (Auto) 1.5 x10^3uL (1.8-7.7) Lymphocytes # (Auto) 1.9 x10^3/uL (1.0-4.8) Monocytes # (Auto) 0.2 x10^3/uL (0.0-1.1) Eosinophils # (Auto) 0.0 x10^3/uL (0.0-0.7) Basophils # (Auto) 0.0 x10^3/uL (0.0-0.2) Segmented Neutrophils % 40 % (35-66) Band Neutrophils % 1 % (0-9) Lymphocytes % 46 % (24-48) Atypical Lymphocytes % (Manual) 7 % (0-0) Monocytes % 5 % (0-10) Eosinophils % 1 % (0-5) Platelet Estimate Decreased (ADEQUATE) Prothrombin Time 12.2 SEC (11.7-14.0) Prothromb Time International Ratio 1.0 (0.8-1.1) Sodium Level 146 mmol/L (136-145) Potassium Level 4.0 mmol/L (3.5-5.1) Chloride Level 107 mmol/L (98-107) Carbon Dioxide Level 29 mmol/L (21-32) Anion Gap 10 (6-14) Blood Urea Nitrogen 22 mg/dL (7-20) Creatinine 1.0 mg/dL (0.6-1.0) Estimated GFR (Cockcroft-Gault) 57.4 Glucose Level 128 mg/dL (70-99) Calcium Level 9.3 mg/dL (8.5-10.1) Magnesium Level 2.1 mg/dL (1.8-2.4) Total Bilirubin 0.3 mg/dL (0.2-1.0) Direct Bilirubin 0.1 mg/dL (0.0-0.2) Aspartate Amino Transf (AST/SGOT) 29 U/L (15-37) Alanine Aminotransferase (ALT/SGPT) 42 U/L (14-59) Alkaline Phosphatase 150 U/L (46-116) Creatine Kinase 138 U/L (26-192) Creatine Kinase MB (Mass) 1.1 ng/mL (0.0-3.6) Creatine Kinase MB Relative Index 0.8 % (0-4) Troponin I Quantitative < 0.017 ng/mL (0.000-0.055) 0.021 ng/mL (0.000-0.055) LK-Dhd-F-Type Natriuretic Peptide 52 pg/mL (0-124) Total Protein 7.5 g/dL (6.4-8.2) Albumin 3.8 g/dL (3.4-5.0) Urine Collection Type Unknown Urine Color Yellow Urine Clarity Clear Urine pH 6.5 Urine Specific [place] <=1.005 Urine Protein Negative mg/dL (NEG-TRACE) Urine Glucose (UA) Negative mg/dL (NEG) Urine Ketones (Stick) Negative mg/dL (NEG) Urine Blood Negative (NEG) Urine Nitrite Negative (NEG) Urine Bilirubin Negative (NEG) Urine Urobilinogen Dipstick 0.2 mg/dL (0.2 mg/dL) Urine Leukocyte Esterase Negative (NEG) Urine RBC 0 /HPF (0-2) Urine WBC Occ /HPF (0-4) Urine Squamous Epithelial Cells Few /LPF Urine Bacteria 0 /HPF (0-FEW) Urine Opiates Screen Neg (NEG) Urine Methadone Screen Neg (NEG) Urine Barbiturates Neg (NEG) Urine Phencyclidine Screen Neg (NEG) Urine Amphetamine/Methamphetamine Neg (NEG) Urine Benzodiazepines Screen Neg (NEG) Urine Cocaine Screen Neg (NEG) Urine Cannabinoids Screen Neg (NEG) Urine Ethyl Alcohol Neg (NEG) Thyroid Stimulating Hormone (TSH) 4.381 uIU/mL (0.358-3.74) Free Thyroxine 1.04 ng/dL (0.76-1.46) Free Triiodothyronine (T3) pg/mL 2.60 pg/mL (2.18-3.98) VTE Prophylaxis Ordered VTE Prophylaxis Devices: Yes VTE Pharmacological Prophylaxi: Yes Assessment/Plan Assessment/Plan 1, New atrial fib RVR (last episode 30 yrs ago)_- CHADS,2 (HTN and age) 2. Hypothyroidism on synthroid 3. CP 4. headaches PLAN: CVC admit RAte control Planned for AC by cards ECho and mPI ravi Check TSH and t3./t4 l;evels NPO post MN Monitor CP, nitro, tylenol for headache Morphine CP Cardiac enzymes, cycle if not yet done GUERITA CONTRERAS MD February 11, 2017 10:50
[2017-02-11] MEDS ORDERED: IBUPROFEN 600 MG TABLET. PO PRN (11:00)
[2017-02-11] MEDS: ASPIRIN ENTERIC COATED 81 MG TABLET.DR. PO SCH (11:21)
--- NOTE | 2017-02-11 16:42 | EKG ---
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
[2017-02-11] MEDS ORDERED: LATANOPROST 0.005% OPHTH SOLUTION 2.5ML BOTTLE. OU SCH (21:00)
[2017-02-12 03:05] VITALS: BP 126/69
[2017-02-12 05:46] LABS: BASO % 0 % (0-3); EOS % 2 % (0-3); HEMOGLOBIN 12.2 g/dL (12.0-15.5); LYMPH # 1.5 x10^3/uL (1.0-4.8); LYMPH % 49 % (24-48); MEAN CORPUSCULAR HEMOGLOBIN 27 pg (25-35); MEAN CORPUSCULAR HGB CONC 32 g/dL (31-37); MEAN CORPUSCULAR VOLUME 85 fL (79-100); MONO % 5 % (0-9); NEUT % 43 % (31-73); PLATELET COUNT 111 x10^3/uL (140-400); RED BLOOD COUNT 4.48 x10^6/uL (3.50-5.40); RED CELL DISTRIBUTION WIDTH 14.4 % (11.5-14.5)
[2017-02-12 05:55] LABS: CREATININE 0.7 mg/dL (0.6-1.0); GFR 86.6; POTASSIUM 3.9 mmol/L (3.5-5.1)
[2017-02-12 07:00] VITALS: BP 125/59
[2017-02-12] MEDS: LEVOTHYROXINE 88 MCG TABLET PO SCH (08:13)
[2017-02-12] MEDS ORDERED: REGADENOSON 0.4 MG/5 ML DISP.SYRIN. IV ONE (08:45)
[2017-02-12 10:49] VITALS: BP 127/62
--- NOTE | 2017-02-12 10:56 | CARD ---
APPROVED REPORT EXAM: Two-dimensional and M-mode echocardiogram with Doppler and color Doppler. Other Information Quality : Good INDICATION Atrial Fibrillation 2D DIMENSIONS RVDd2.8 (2.9-3.5cm)Left Atrium(2D)2.7 (1.6-4.0cm) IVSd0.9 (0.7-1.1cm)Aortic Root(2D)2.1 (2.0-3.7cm) LVDd4.3 (3.9-5.9cm)LVOT Diameter2.2 (1.8-2.4cm) PWd1.0 (0.7-1.1cm)LVDs2.6 (2.5-4.0cm) FS (%) 303.0 %SV57.5 ml LVEF(%)60.0 (>50%) Aortic Valve AoV Peak Ari.148.3cm/sAoV VTI27.1cm AO Peak GR.8.8mmHgLVOT Peak Ari.135.7cm/s LVOT VTI 24.57cmAO Mean GR.5mmHg NATALIIA (VMAX)3.46hk3LND (VTI)3.56cm2 Mitral Valve MV E Ucgwwgti97.2cm/sMV DECEL FELY340nq MV A Ncfdyyzu37.6cm/sMV VYZ30zf E/A Ratio1.3MVA (PHT)4.01cm2 TDI E/Medial E'14.7 Tricuspid Valve TR P. Cszurleo340im/sRAP NQXIHUYD9jnPs TR Peak Gr.72cyAaZBWF01tnHe Pulmonary Vein S1 Falezooj22.1cm/sD2 Zjzjroms25.8cm/s LEFT VENTRICLE The left ventricle is normal size. There is normal left ventricular wall thickness. The left ventricu lar systolic function is normal and the ejection fraction is within normal range. The Ejection Fracti on is 55-60%. There is normal LV segmental wall motion. Transmitral Doppler flow pattern is Grade I-a bnormal relaxation pattern. RIGHT VENTRICLE The right ventricle is normal size. The right ventricular systolic function is normal. ATRIA The left atrium size is normal. The right atrium size is normal. The interatrial septum is intact wit h no evidence for an atrial septal defect or patent foramen ovale as noted on 2-D or Doppler imaging. AORTIC VALVE The aortic valve is normal in structure and function. Doppler and Color Flow revealed no significant aortic regurgitation. There is no significant aortic valvular stenosis. MITRAL VALVE The mitral valve is normal in structure and function. There is no evidence of mitral valve prolapse. There is no mitral valve stenosis. Doppler and Color-flow revealed trace mitral regurgitation. TRICUSPID VALVE The tricuspid valve is normal in structure and function. Doppler and Color Flow revealed trace to mil d tricuspid regurgitation. The PA pressure was estimated at 29 mmHg. There is no tricuspid valve sten osis. PULMONIC VALVE Doppler and Color Flow revealed no pulmonic valvular regurgitation. There is no pulmonic valvular isamar nosis. GREAT VESSELS The aortic root is normal in size. The ascending aorta is normal in size. The IVC is normal in size a nd collapses >50% with inspiration. PERICARDIAL EFFUSION There is no evidence of significant pericardial effusion. Critical Notification Critical Value: No <Conclusion> The left ventricular systolic function is normal and the ejection fraction is within normal range. Th e Ejection Fraction is 55-60%. There is normal LV segmental wall motion.
--- NOTE | 2017-02-12 11:26 | PDOC ---
PROGRESS NOTES Chief Complaint Chief Complaint 1, New atrial fib RVR (last episode 30 yrs ago)_- CHADS 1 ( age) 2. Hypothyroidism on synthroid 3. CP 4. headaches, better History of Present Illness History of Present Illness Out having echo MPI done, results pending No acute events overnight TSH borderline low, but T3 and T4 at goal Started on PO cardizem 120 CHADS score is low -1 - just recommended ASA PLAn: Await tests COnt current dose synthroid ASA CArdizem 120 PO qD Vitals Vitals Vital Signs Date Time Temp Pulse Resp B/P (MAP) Pulse Ox O2 Delivery O2 Flow Rate FiO2 02/12/17 10:49 99.0 95 18 127/62 (83) 96 Room Air 99.0 Physical Exam General: Alert, Oriented X3, Cooperative, No acute distress Heart: Regular rate Abdomen: Normal bowel sounds, Soft, No tenderness, No hepatosplenomegaly, No masses Extremities: No clubbing, No cyanosis, No edema, Normal pulses, No tenderness/ swelling Skin: No rashes, No breakdown, No significant lesion Labs LABS Laboratory Tests Test 02/11/17 12:15 02/12/17 05:00 Troponin I Quantitative < 0.017 ng/mL (0.000-0.055) White Blood Count 3.0 x10^3/uL (4.0-11.0) Red Blood Count 4.48 x10^6/uL (3.50-5.40) Hemoglobin 12.2 g/dL (12.0-15.5) Hematocrit 38.0 % (36.0-47.0) Mean Corpuscular Volume 85 fL (79-100) Mean Corpuscular Hemoglobin 27 pg (25-35) Mean Corpuscular Hemoglobin Concent 32 g/dL (31-37) Red Cell Distribution Width 14.4 % (11.5-14.5) Platelet Count 111 x10^3/uL (140-400) Neutrophils (%) (Auto) 43 % (31-73) Lymphocytes (%) (Auto) 49 % (24-48) Monocytes (%) (Auto) 5 % (0-9) Eosinophils (%) (Auto) 2 % (0-3) Basophils (%) (Auto) 0 % (0-3) Neutrophils # (Auto) 1.3 x10^3uL (1.8-7.7) Lymphocytes # (Auto) 1.5 x10^3/uL (1.0-4.8) Monocytes # (Auto) 0.2 x10^3/uL (0.0-1.1) Eosinophils # (Auto) 0.1 x10^3/uL (0.0-0.7) Basophils # (Auto) 0.0 x10^3/uL (0.0-0.2) Sodium Level 142 mmol/L (136-145) Potassium Level 3.9 mmol/L (3.5-5.1) Chloride Level 106 mmol/L (98-107) Carbon Dioxide Level 28 mmol/L (21-32) Anion Gap 8 (6-14) Blood Urea Nitrogen 15 mg/dL (7-20) Creatinine 0.7 mg/dL (0.6-1.0) Estimated GFR (Cockcroft-Gault) 86.6 Glucose Level 104 mg/dL (70-99) Calcium Level 8.0 mg/dL (8.5-10.1) Review of Systems Review of Systems out of room Assessment and Plan Assessmemt and Plan Problems Medical Problems: (1) Atrial fibrillation with RVR Status: Acute Problems: Comment Review of Relevant I have reviewed the following items kike (where applicable) has been applied. Labs Laboratory Tests Test 02/10/17 23:11 02/10/17 23:35 02/11/17 06:16 02/11/17 12:15 White Blood Count 3.6 x10^3/uL (4.0-11.0) Red Blood Count 4.99 x10^6/uL (3.50-5.40) Hemoglobin 13.7 g/dL (12.0-15.5) Hematocrit 42.3 % (36.0-47.0) Mean Corpuscular Volume 85 fL (79-100) Mean Corpuscular Hemoglobin 28 pg (25-35) Mean Corpuscular Hemoglobin Concent 33 g/dL (31-37) Red Cell Distribution Width 14.3 % (11.5-14.5) Platelet Count 112 x10^3/uL (140-400) Neutrophils (%) (Auto) 41 % (31-73) Lymphocytes (%) (Auto) 52 % (24-48) Monocytes (%) (Auto) 5 % (0-9) Eosinophils (%) (Auto) 1 % (0-3) Basophils (%) (Auto) 1 % (0-3) Neutrophils # (Auto) 1.5 x10^3uL (1.8-7.7) Lymphocytes # (Auto) 1.9 x10^3/uL (1.0-4.8) Monocytes # (Auto) 0.2 x10^3/uL (0.0-1.1) Eosinophils # (Auto) 0.0 x10^3/uL (0.0-0.7) Basophils # (Auto) 0.0 x10^3/uL (0.0-0.2) Segmented Neutrophils % 40 % (35-66) Band Neutrophils % 1 % (0-9) Lymphocytes % 46 % (24-48) Atypical Lymphocytes % (Manual) 7 % (0-0) Monocytes % 5 % (0-10) Eosinophils % 1 % (0-5) Platelet Estimate Decreased (ADEQUATE) Prothrombin Time 12.2 SEC (11.7-14.0) Prothromb Time International Ratio 1.0 (0.8-1.1) Sodium Level 146 mmol/L (136-145) Potassium Level 4.0 mmol/L (3.5-5.1) Chloride Level 107 mmol/L (98-107) Carbon Dioxide Level 29 mmol/L (21-32) Anion Gap 10 (6-14) Blood Urea Nitrogen 22 mg/dL (7-20) Creatinine 1.0 mg/dL (0.6-1.0) Estimated GFR (Cockcroft-Gault) 57.4 Glucose Level 128 mg/dL (70-99) Calcium Level 9.3 mg/dL (8.5-10.1) Magnesium Level 2.1 mg/dL (1.8-2.4) Total Bilirubin 0.3 mg/dL (0.2-1.0) Direct Bilirubin 0.1 mg/dL (0.0-0.2) Aspartate Amino Transf (AST/SGOT) 29 U/L (15-37) Alanine Aminotransferase (ALT/SGPT) 42 U/L (14-59) Alkaline Phosphatase 150 U/L (46-116) Creatine Kinase 138 U/L (26-192) Creatine Kinase MB (Mass) 1.1 ng/mL (0.0-3.6) Creatine Kinase MB Relative Index 0.8 % (0-4) Troponin I Quantitative < 0.017 ng/mL (0.000-0.055) 0.021 ng/mL (0.000-0.055) < 0.017 ng/mL (0.000-0.055) DS-Nhl-J-Type Natriuretic Peptide 52 pg/mL (0-124) Total Protein 7.5 g/dL (6.4-8.2) Albumin 3.8 g/dL (3.4-5.0) Urine Collection Type Unknown Urine Color Yellow Urine Clarity Clear Urine pH 6.5 Urine Specific [place] <=1.005 Urine Protein Negative mg/dL (NEG-TRACE) Urine Glucose (UA) Negative mg/dL (NEG) Urine Ketones (Stick) Negative mg/dL (NEG) Urine Blood Negative (NEG) Urine Nitrite Negative (NEG) Urine Bilirubin Negative (NEG) Urine Urobilinogen Dipstick 0.2 mg/dL (0.2 mg/dL) Urine Leukocyte Esterase Negative (NEG) Urine RBC 0 /HPF (0-2) Urine WBC Occ /HPF (0-4) Urine Squamous Epithelial Cells Few /LPF Urine Bacteria 0 /HPF (0-FEW) Urine Opiates Screen Neg (NEG) Urine Methadone Screen Neg (NEG) Urine Barbiturates Neg (NEG) Urine Phencyclidine Screen Neg (NEG) Urine Amphetamine/Methamphetamine Neg (NEG) Urine Benzodiazepines Screen Neg (NEG) Urine Cocaine Screen Neg (NEG) Urine Cannabinoids Screen Neg (NEG) Urine Ethyl Alcohol Neg (NEG) Thyroid Stimulating Hormone (TSH) 4.381 uIU/mL (0.358-3.74) Free Thyroxine 1.04 ng/dL (0.76-1.46) Free Triiodothyronine (T3) pg/mL 2.60 pg/mL (2.18-3.98) Test 02/12/17 05:00 White Blood Count 3.0 x10^3/uL (4.0-11.0) Red Blood Count 4.48 x10^6/uL (3.50-5.40) Hemoglobin 12.2 g/dL (12.0-15.5) Hematocrit 38.0 % (36.0-47.0) Mean Corpuscular Volume 85 fL (79-100) Mean Corpuscular Hemoglobin 27 pg (25-35) Mean Corpuscular Hemoglobin Concent 32 g/dL (31-37) Red Cell Distribution Width 14.4 % (11.5-14.5) Platelet Count 111 x10^3/uL (140-400) Neutrophils (%) (Auto) 43 % (31-73) Lymphocytes (%) (Auto) 49 % (24-48) Monocytes (%) (Auto) 5 % (0-9) Eosinophils (%) (Auto) 2 % (0-3) Basophils (%) (Auto) 0 % (0-3) Neutrophils # (Auto) 1.3 x10^3uL (1.8-7.7) Lymphocytes # (Auto) 1.5 x10^3/uL (1.0-4.8) Monocytes # (Auto) 0.2 x10^3/uL (0.0-1.1) Eosinophils # (Auto) 0.1 x10^3/uL (0.0-0.7) Basophils # (Auto) 0.0 x10^3/uL (0.0-0.2) Sodium Level 142 mmol/L (136-145) Potassium Level 3.9 mmol/L (3.5-5.1) Chloride Level 106 mmol/L (98-107) Carbon Dioxide Level 28 mmol/L (21-32) Anion Gap 8 (6-14) Blood Urea Nitrogen 15 mg/dL (7-20) Creatinine 0.7 mg/dL (0.6-1.0) Estimated GFR (Cockcroft-Gault) 86.6 Glucose Level 104 mg/dL (70-99) Calcium Level 8.0 mg/dL (8.5-10.1) Laboratory Tests Test 02/11/17 12:15 02/12/17 05:00 Troponin I Quantitative < 0.017 ng/mL (0.000-0.055) White Blood Count 3.0 x10^3/uL (4.0-11.0) Red Blood Count 4.48 x10^6/uL (3.50-5.40) Hemoglobin 12.2 g/dL (12.0-15.5) Hematocrit 38.0 % (36.0-47.0) Mean Corpuscular Volume 85 fL (79-100) Mean Corpuscular Hemoglobin 27 pg (25-35) Mean Corpuscular Hemoglobin Concent 32 g/dL (31-37) Red Cell Distribution Width 14.4 % (11.5-14.5) Platelet Count 111 x10^3/uL (140-400) Neutrophils (%) (Auto) 43 % (31-73) Lymphocytes (%) (Auto) 49 % (24-48) Monocytes (%) (Auto) 5 % (0-9) Eosinophils (%) (Auto) 2 % (0-3) Basophils (%) (Auto) 0 % (0-3) Neutrophils # (Auto) 1.3 x10^3uL (1.8-7.7) Lymphocytes # (Auto) 1.5 x10^3/uL (1.0-4.8) Monocytes # (Auto) 0.2 x10^3/uL (0.0-1.1) Eosinophils # (Auto) 0.1 x10^3/uL (0.0-0.7) Basophils # (Auto) 0.0 x10^3/uL (0.0-0.2) Sodium Level 142 mmol/L (136-145) Potassium Level 3.9 mmol/L (3.5-5.1) Chloride Level 106 mmol/L (98-107) Carbon Dioxide Level 28 mmol/L (21-32) Anion Gap 8 (6-14) Blood Urea Nitrogen 15 mg/dL (7-20) Creatinine 0.7 mg/dL (0.6-1.0) Estimated GFR (Cockcroft-Gault) 86.6 Glucose Level 104 mg/dL (70-99) Calcium Level 8.0 mg/dL (8.5-10.1) Medications Current Medications Adenosine (Adenocard) 6 mg STK-MED ONCE IV ; Start 02/10/17 at 23:05; Stop 02/10 at 23:06; Status DC Diltiazem HCl (Cardizem) 25 mg STK-MED ONCE .ROUTE ; Start 02/10/17 at 23:05; Stop 02/10/17 at 23:06; Status DC Diltiazem HCl (Cardizem) 20 mg 1X ONCE IVP Last administered on 02/10/17t 23: 10; Start 02/10/17 at 23:30; Stop 02/10/17 at 23:31; Status DC Aspirin (Children'S Aspirin) 324 mg 1X ONCE PO Last administered on 02/10/17 23:30; Start 02/10/17 at 23:30; Stop 02/10/17 at 23:31; Status DC Diltiazem HCl 125 mg/Dextrose 125 ml @ 10 mls/hr 1X ONCE IV Last administered on 02/10/17 23:42; Start 02/10/17 at 23:30; Stop 02/11/17 at 10:22 ; Status DC Sodium Chloride 1,000 ml @ 100 mls/hr Q10H IV Last administered on 02/10/17 23:30; Start 02/10/17 at 23:30; Stop 02/11/17 at 09:29; Status DC Diltiazem HCl (Cardizem) 25 mg 1X ONCE IVP Last administered on 02/10/17 23: 30; Start 02/10/17 at 23:45; Stop 02/10/17 at 23:46; Status DC Digoxin (Lanoxin) 500 mcg 1X ONCE IV Last administered on 02/11/17 00:20; Start 02/11/17 at 00:15; Stop 02/11/17 at 10:22; Status DC Ondansetron HCl (Zofran) 4 mg PRN Q8HRS PRN IV NAUSEA/VOMITING; Start 02/11/17 at 00:45; Stop 02/11/17 at 08:42; Status DC Sodium Chloride 1,000 ml @ 100 mls/hr Q10H IV ; Start 02/11/17 at 00:30; Stop 02/11/17 at 17:20; Status DC Digoxin (Lanoxin) 250 mcg Q6HRS IV ; Start 02/11/17 at 06:00; Stop 02/11/17 at 08:10; Status DC Ondansetron HCl (Zofran) 4 mg PRN Q6HRS PRN IV NAUSEA/VOMITING; Start 02/11/17 at 08:40; Stop 02/12/17 at 08:39; Status DC Latanoprost (Xalatan) 1 drop QHS OU Last administered on 02/11/17 20:56; Start 02/11/17 at 21:00 Levothyroxine Sodium (Synthroid) 88 mcg DAILY PO Last administered on 08:13; Start 02/11/17 at 10:30 Diltiazem HCl (Cardizem 24hr Cd) 120 mg DAILY PO Last administered on 11:21; Start 02/11/17 at 10:30 Aspirin (Ecotrin) 81 mg DAILYWBKFT PO Last administered on 02/11/17 11:21; Start 02/11/17 at 10:30 Ibuprofen (Motrin) 600 mg PRN Q6HRS PRN PO INFLAMMATION Last administered on 11:51; Start 02/11/17 at 11:00 Regadenoson (Lexiscan) 0.4 mg 1X ONCE IV Last administered on 02/12/17 09:14 ; Start 02/12/17 at 08:45; Stop 02/12/17 at 08:46; Status DC Active Scripts Active Reported Synthroid (Levothyroxine Sodium) 88 Mcg Tablet 88 Mcg PO DAILY [place] (Estradiol) 1 Each Patch.tdwk Latanoprost 2.5 Ml Drops 1 Drop EACHEYE HS Vitals/I & O Vital Sign - Last 24 Hours 02/11/17 02/11/17 02/11/17 02/11/17 14:35 19:20 20:12 23:10 Temp 97.8 98.3 97.7 97.8 98.3 97.7 Pulse 86 83 90 Resp 18 18 18 B/P (MAP) 124/59 (80) 114/57 (76) 135/75 (95) Pulse Ox 96 96 98 O2 Delivery Room Air Room Air Room Air Room Air 02/12/17 02/12/17 02/12/17 02/12/17 03:05 07:00 08:00 10:49 Temp 98.5 98.3 99.0 98.5 98.3 99.0 Pulse 90 87 95 Resp 18 19 18 B/P (MAP) 126/69 (88) 125/59 (81) 127/62 (83) Pulse Ox 97 95 96 O2 Delivery Room Air Room Air Room Air Room Air Intake and Output 02/11/17 02/11/17 02/12/17 15:00 23:00 07:00 Intake Total 760 ml 650 ml 480 ml Output Total 650 ml 100 ml Balance 110 ml 650 ml 380 ml GUERITA CONTRERAS MD February 12, 2017 11:26
[2017-02-12 11:36] VITALS: BP 127/62
[2017-02-12] MEDS: ASPIRIN ENTERIC COATED 81 MG TABLET.DR. PO SCH (11:36)
--- NOTE | 2017-02-12 13:40 | PDOC ---
ABDIAS GONGORA [employer] 02/12/17 1340: CARDIO Progress Notes Date and Time Date of Service 02/12/17 Time of Evaluation 1245 Subjective Subjective: No Chest Pain, No shortness of breath, No Palpitations Vitals Vitals Vital Signs Date Time Temp Pulse Resp B/P (MAP) Pulse Ox O2 Delivery O2 Flow Rate FiO2 02/12/17 11:36 102 127/62 02/12/17 10:49 99.0 18 96 Room Air 99.0 Weight Weight [ ] Input and Output Intake and Output Intake and Output 02/12/17 07:00 Intake Total 1890 ml Output Total 750 ml Balance 1140 ml Intake Oral 1310 ml IV Total 580 ml Output Urine Total 750 ml Laboratory Labs Laboratory Tests Test 02/12/17 05:00 White Blood Count 3.0 x10^3/uL (4.0-11.0) Red Blood Count 4.48 x10^6/uL (3.50-5.40) Hemoglobin 12.2 g/dL (12.0-15.5) Hematocrit 38.0 % (36.0-47.0) Mean Corpuscular Volume 85 fL (79-100) Mean Corpuscular Hemoglobin 27 pg (25-35) Mean Corpuscular Hemoglobin Concent 32 g/dL (31-37) Red Cell Distribution Width 14.4 % (11.5-14.5) Platelet Count 111 x10^3/uL (140-400) Neutrophils (%) (Auto) 43 % (31-73) Lymphocytes (%) (Auto) 49 % (24-48) Monocytes (%) (Auto) 5 % (0-9) Eosinophils (%) (Auto) 2 % (0-3) Basophils (%) (Auto) 0 % (0-3) Neutrophils # (Auto) 1.3 x10^3uL (1.8-7.7) Lymphocytes # (Auto) 1.5 x10^3/uL (1.0-4.8) Monocytes # (Auto) 0.2 x10^3/uL (0.0-1.1) Eosinophils # (Auto) 0.1 x10^3/uL (0.0-0.7) Basophils # (Auto) 0.0 x10^3/uL (0.0-0.2) Sodium Level 142 mmol/L (136-145) Potassium Level 3.9 mmol/L (3.5-5.1) Chloride Level 106 mmol/L (98-107) Carbon Dioxide Level 28 mmol/L (21-32) Anion Gap 8 (6-14) Blood Urea Nitrogen 15 mg/dL (7-20) Creatinine 0.7 mg/dL (0.6-1.0) Estimated GFR (Cockcroft-Gault) 86.6 Glucose Level 104 mg/dL (70-99) Calcium Level 8.0 mg/dL (8.5-10.1) Physical Exam HEENT: Neck Supple W Full Motion Chest: Symmetric LUNGS: Clear to Auscultation Heart: S1S2, RRR, other (tele: SR) Abdomen: Soft N/T Extremities: 2+ Dorsalis Pedis, No Edema, No Calf Tenderness Neurology: alert, oriented, follow commands Assessment Assessment 1. AFIB with RVR 2. Hypertension 3. Hypothyroidism Recommendations Maintaining SR/ rate control with Cardizem ASA for stroke prevention. Consider event monitor at discharge to note AFIB burden/guide a/c therapy. Echo WNL. If MPI normal, may discharge from a CV standpoint and f/u in our office in 4 weeks with BRISEIDA Bhatti MD 02/14/17 2318: CARDIO Progress Notes Plan Plan Late entry for 02/12/2017 Pt. seen and examined. Agree with above [employer] note. No acute events overnight. No chest pain or recurrence of afib. Normal exam COntinue cardizem. Continue ASA 325mg Will f/u in 4 weeks. Thanks for consult. ABDIAS GONGORA APRN February 12, 2017 13:40 BRISEIDA LEROY MD Feb 14, 2017 23:18
--- NOTE | 2017-02-12 13:51 | RAD ---
APPROVED REPORT Test Type: Pharmacological Stress Nurse/Tech: dean fontenot Test Indications: chest pain Cardiac History: NONE STATED, SEE EHR Medications: SEE EHR Medical History: NONE STATED, SEE EHR Resting ECG: SR Resting Heart Rate: 88 bpm Resting Blood Pressure: 137/62mmHg Pretest Chest Pain: No chest pain Nurse/Tech Notes LUNG SOUNDS CLEAR, S1S2 WNL. Consent: The procedure was explained to the patient in lay terms. Informed consent was witnessed. Jason eout was entered into [employer]. History and Stress Test performed by ANANT Alvarado, ALLIE (R) (N) Pharm. Details Pharmacologic stress testing was performed using 0.4mg per 5ml of regadenoson given intravenously ove r 7-10 seconds. Stress Symptoms NAUSEA, FACIAL FLUSHING, HEADACEH. POST EXERCISE Reason for Termination: Infusion complete Max HR: 128 bpm Max Blood Pressure: 153/58mmHg Chest Pain: No. Arrhythmia: No. ST Change: No. INTERPRETATION Stress EKG Conclusion: No evidence of stress induced EKG changes. Imaging Protocol IMAGE PROTOCOL: Rest Tc-99m/stress Tc-99m 1 day Rest: Stress: Viability: Radiopharm.Tc99m BlpmsytpcUj10g Sestamibi Ffbc03wRm 30mCi Duration 15min. 12min. Img Date 02/12/2017 02/12/2017 Inj-Img [id number]. 60min. Rest Admin Site:IV - Left AntecubitalAdministrator:RT Ghulam (R)(N) Stress Admin Site: IV - Left AntecubitalAdministrator: ANANT Alvarado, ALLYNT (R)(N) STRESS DATA End Diast. Vol.67.0mlAv. Heart Rate95.0bpm End Syst. Vol.13.0mlCO Index BSA0.0L/min Myocardial Ckvh903.0gEject. Ifwubwww62.0% Stress Rates Pk. Fill Rate5.25EDV/secLVtime Pk. Fill 192.24msec Pk. Empty Rate6.07ESV/secLVtime Pk. Ajaww694.38msec 09/18 Pk. Fill0.58EDV/sec Stress Scores Regional WT1.00Summed WT5.00 Regional WM0.00Summed WM5.00 The rest and stress images show normal perfusion, normal contraction and thickening. LV Perf. Quant 17 Seg. SSS0.00 17 Seg. SRS2.00 17 Seg. SDS0.00 Stress Defect Extent (% LAD)0.00Rest Defect Extent (% LAD)0.00Rev. Defect Extent (% LAD)0.00 Stress Defect Extent (% LCX) 0.00Rest Defect Extent (% LCX)0.00Rev. Defect Extent (% LCX)0.00 Stress Defect Extent (% RCA)0.00Rest Defect Extent (% RCA)0.00Rev. Defect Extent (% RCA)0.00 Stress Defect Extent (% ROB)0.00Rest Defect Extent (% ROB)0.00Rev. Defect Extent (% ROB)0.00 Other Information Quality:Good Risk Assessment: Low Risk Conclusion 1. No evidence of stress induced EKG changes. 2. Normal perfusion at stress/rest. 3. Low risk study 4. EF > 70%
[2017-02-12] MEDS ORDERED: DILT120C97 PO (14:30)
[2017-02-12] MEDS ORDERED: ASPI81TA2 PO (14:39)
--- NOTE | 2017-02-12 17:46 | PDOC3 ---
Discharge Summary Visit Information Date of Admission: February 11, 2017 Date of Discharge: February 12, 2017 Admitting Diagnosis Comment: 1, New atrial fib RVR (last episode 30 yrs ago)_- CHADS 1 ( age) 2. Hypothyroidism on synthroid 3. CP 4. headaches, better Final Diagnosis Problems Medical Problems: (1) Atrial fibrillation with RVR Status: Acute Brief Hospital Course Allergies Allergies Coded Allergies Type Severity Reaction Last Updated Verified Penicillins Allergy Intermediate 02/10/17 Yes Sulfa (Sulfonamide Antibiotics) Allergy Intermediate 02/10/17 Yes acetaminophen Allergy Intermediate 02/10/17 Yes oxycodone Allergy Intermediate 02/10/17 Yes prednisone Allergy Intermediate 02/10/17 Yes Vital Signs Vital Signs Date Time Temp Pulse Resp B/P (MAP) Pulse Ox O2 Delivery O2 Flow Rate FiO2 02/12/17 15:00 84 02/12/17 11:36 127/62 02/12/17 10:49 99.0 18 96 Room Air 99.0 Lab Results Laboratory Tests Test 02/10/17 23:11 02/10/17 23:35 02/11/17 06:16 02/11/17 12:15 White Blood Count 3.6 x10^3/uL (4.0-11.0) Red Blood Count 4.99 x10^6/uL (3.50-5.40) Hemoglobin 13.7 g/dL (12.0-15.5) Hematocrit 42.3 % (36.0-47.0) Mean Corpuscular Volume 85 fL (79-100) Mean Corpuscular Hemoglobin 28 pg (25-35) Mean Corpuscular Hemoglobin Concent 33 g/dL (31-37) Red Cell Distribution Width 14.3 % (11.5-14.5) Platelet Count 112 x10^3/uL (140-400) Neutrophils (%) (Auto) 41 % (31-73) Lymphocytes (%) (Auto) 52 % (24-48) Monocytes (%) (Auto) 5 % (0-9) Eosinophils (%) (Auto) 1 % (0-3) Basophils (%) (Auto) 1 % (0-3) Neutrophils # (Auto) 1.5 x10^3uL (1.8-7.7) Lymphocytes # (Auto) 1.9 x10^3/uL (1.0-4.8) Monocytes # (Auto) 0.2 x10^3/uL (0.0-1.1) Eosinophils # (Auto) 0.0 x10^3/uL (0.0-0.7) Basophils # (Auto) 0.0 x10^3/uL (0.0-0.2) Segmented Neutrophils % 40 % (35-66) Band Neutrophils % 1 % (0-9) Lymphocytes % 46 % (24-48) Atypical Lymphocytes % (Manual) 7 % (0-0) Monocytes % 5 % (0-10) Eosinophils % 1 % (0-5) Platelet Estimate Decreased (ADEQUATE) Prothrombin Time 12.2 SEC (11.7-14.0) Prothromb Time International Ratio 1.0 (0.8-1.1) Sodium Level 146 mmol/L (136-145) Potassium Level 4.0 mmol/L (3.5-5.1) Chloride Level 107 mmol/L (98-107) Carbon Dioxide Level 29 mmol/L (21-32) Anion Gap 10 (6-14) Blood Urea Nitrogen 22 mg/dL (7-20) Creatinine 1.0 mg/dL (0.6-1.0) Estimated GFR (Cockcroft-Gault) 57.4 Glucose Level 128 mg/dL (70-99) Calcium Level 9.3 mg/dL (8.5-10.1) Magnesium Level 2.1 mg/dL (1.8-2.4) Total Bilirubin 0.3 mg/dL (0.2-1.0) Direct Bilirubin 0.1 mg/dL (0.0-0.2) Aspartate Amino Transf (AST/SGOT) 29 U/L (15-37) Alanine Aminotransferase (ALT/SGPT) 42 U/L (14-59) Alkaline Phosphatase 150 U/L (46-116) Creatine Kinase 138 U/L (26-192) Creatine Kinase MB (Mass) 1.1 ng/mL (0.0-3.6) Creatine Kinase MB Relative Index 0.8 % (0-4) Troponin I Quantitative < 0.017 ng/mL (0.000-0.055) 0.021 ng/mL (0.000-0.055) < 0.017 ng/mL (0.000-0.055) AS-Voi-E-Type Natriuretic Peptide 52 pg/mL (0-124) Total Protein 7.5 g/dL (6.4-8.2) Albumin 3.8 g/dL (3.4-5.0) Urine Collection Type Unknown Urine Color Yellow Urine Clarity Clear Urine pH 6.5 Urine Specific [place] <=1.005 Urine Protein Negative mg/dL (NEG-TRACE) Urine Glucose (UA) Negative mg/dL (NEG) Urine Ketones (Stick) Negative mg/dL (NEG) Urine Blood Negative (NEG) Urine Nitrite Negative (NEG) Urine Bilirubin Negative (NEG) Urine Urobilinogen Dipstick 0.2 mg/dL (0.2 mg/dL) Urine Leukocyte Esterase Negative (NEG) Urine RBC 0 /HPF (0-2) Urine WBC Occ /HPF (0-4) Urine Squamous Epithelial Cells Few /LPF Urine Bacteria 0 /HPF (0-FEW) Urine Opiates Screen Neg (NEG) Urine Methadone Screen Neg (NEG) Urine Barbiturates Neg (NEG) Urine Phencyclidine Screen Neg (NEG) Urine Amphetamine/Methamphetamine Neg (NEG) Urine Benzodiazepines Screen Neg (NEG) Urine Cocaine Screen Neg (NEG) Urine Cannabinoids Screen Neg (NEG) Urine Ethyl Alcohol Neg (NEG) Thyroid Stimulating Hormone (TSH) 4.381 uIU/mL (0.358-3.74) Free Thyroxine 1.04 ng/dL (0.76-1.46) Free Triiodothyronine (T3) pg/mL 2.60 pg/mL (2.18-3.98) Test 02/12/17 05:00 White Blood Count 3.0 x10^3/uL (4.0-11.0) Red Blood Count 4.48 x10^6/uL (3.50-5.40) Hemoglobin 12.2 g/dL (12.0-15.5) Hematocrit 38.0 % (36.0-47.0) Mean Corpuscular Volume 85 fL (79-100) Mean Corpuscular Hemoglobin 27 pg (25-35) Mean Corpuscular Hemoglobin Concent 32 g/dL (31-37) Red Cell Distribution Width 14.4 % (11.5-14.5) Platelet Count 111 x10^3/uL (140-400) Neutrophils (%) (Auto) 43 % (31-73) Lymphocytes (%) (Auto) 49 % (24-48) Monocytes (%) (Auto) 5 % (0-9) Eosinophils (%) (Auto) 2 % (0-3) Basophils (%) (Auto) 0 % (0-3) Neutrophils # (Auto) 1.3 x10^3uL (1.8-7.7) Lymphocytes # (Auto) 1.5 x10^3/uL (1.0-4.8) Monocytes # (Auto) 0.2 x10^3/uL (0.0-1.1) Eosinophils # (Auto) 0.1 x10^3/uL (0.0-0.7) Basophils # (Auto) 0.0 x10^3/uL (0.0-0.2) Sodium Level 142 mmol/L (136-145) Potassium Level 3.9 mmol/L (3.5-5.1) Chloride Level 106 mmol/L (98-107) Carbon Dioxide Level 28 mmol/L (21-32) Anion Gap 8 (6-14) Blood Urea Nitrogen 15 mg/dL (7-20) Creatinine 0.7 mg/dL (0.6-1.0) Estimated GFR (Cockcroft-Gault) 86.6 Glucose Level 104 mg/dL (70-99) Calcium Level 8.0 mg/dL (8.5-10.1) Laboratory Tests Test 02/12/17 05:00 White Blood Count 3.0 x10^3/uL (4.0-11.0) Red Blood Count 4.48 x10^6/uL (3.50-5.40) Hemoglobin 12.2 g/dL (12.0-15.5) Hematocrit 38.0 % (36.0-47.0) Mean Corpuscular Volume 85 fL (79-100) Mean Corpuscular Hemoglobin 27 pg (25-35) Mean Corpuscular Hemoglobin Concent 32 g/dL (31-37) Red Cell Distribution Width 14.4 % (11.5-14.5) Platelet Count 111 x10^3/uL (140-400) Neutrophils (%) (Auto) 43 % (31-73) Lymphocytes (%) (Auto) 49 % (24-48) Monocytes (%) (Auto) 5 % (0-9) Eosinophils (%) (Auto) 2 % (0-3) Basophils (%) (Auto) 0 % (0-3) Neutrophils # (Auto) 1.3 x10^3uL (1.8-7.7) Lymphocytes # (Auto) 1.5 x10^3/uL (1.0-4.8) Monocytes # (Auto) 0.2 x10^3/uL (0.0-1.1) Eosinophils # (Auto) 0.1 x10^3/uL (0.0-0.7) Basophils # (Auto) 0.0 x10^3/uL (0.0-0.2) Sodium Level 142 mmol/L (136-145) Potassium Level 3.9 mmol/L (3.5-5.1) Chloride Level 106 mmol/L (98-107) Carbon Dioxide Level 28 mmol/L (21-32) Anion Gap 8 (6-14) Blood Urea Nitrogen 15 mg/dL (7-20) Creatinine 0.7 mg/dL (0.6-1.0) Estimated GFR (Cockcroft-Gault) 86.6 Glucose Level 104 mg/dL (70-99) Calcium Level 8.0 mg/dL (8.5-10.1) Brief Hospital Course Ms. Tenoiro is a 56 old [sex] who presented with [ ] History of Present Illness 56 y/o female admitted bec of CP 03/25, left sided, no precipitating factor, happened at rest, associated with dizziness and palpitations, no ther sxs, no radiation, no known alleviating factors. Happened on day of admission. SImilar to prior episode some 25-30 yrs ago, was found to be in atrial fib that seemed to have resolved or was UR. Mentioned did being put on digoxin but was taken off. Found to be in atrial fib RVR HR 177 on admit, EKG ok, labs ok, On synthroid at home, levels scheduled to be checked next week. On cardizem 10 mcgs now, planned for MPI and echo ravi and to be tapered off gtt SOme headache and CP now, rest of family updated,. Dw pt and RN COURSE; Rate controlled with cardixem gtt, shifted to PO 120 qD. MPI and echo normal, Cleared from cards.ASA for AC. CHads score low, 1 pnly for age, 2 notes today Discharge Information Condition at Discharge: Improved, Stable Disposition/Orders: D/C to Home Scheduled Aspirin (Aspirin), 1 TAB PO DAILY, (Reported) Diltiazem Hcl (Diltiazem 24HR Cd), 1 CAP PO DAILY, (Reported) Latanoprost (Latanoprost), 1 DROP EACHEYE QHS, (Reported) Levothyroxine Sodium (Synthroid), 88 MCG PO DAILY, (Reported) Miscellaneous Medications Estradiol (Climara), (Reported) GUERITA CONTRERAS MD February 12, 2017 17:46
[2017-02-12] MEDS ORDERED: METOPROLOL TART IMMED RELEASE 25 MG TABLET. PO SCH (21:00)
[2017-02-13] MEDS ORDERED: ASPIRIN ENTERIC COATED 325 MG TABLET.DR. PO SCH (08:00)
== END 2017-02-12 15:49 | disposition home or self-care (01) | DRG 310 ==
LOC: ER 02-11 00:26 → 2 SOUTH 02-11 00:27
PROVIDERS: ADMIT Internal Medicine; ATTEND Internal Medicine
DX: I48.91 Unspecified atrial fibrillation (principal); E03.9 Hypothyroidism, unspecified; I10 Essential (primary) hypertension; R51 Headache; Z79.82 Long term (current) use of aspirin; Z79.1 Long term (current) use of non-steroidal anti-inflammatories (NSAID); Z79.899 Other long term (current) drug therapy; Z88.0 Allergy status to penicillin; Z88.2 Allergy status to sulfonamides; Z82.49 Family history of ischemic heart disease and other diseases of the circulatory system; Z88.6 Allergy status to analgesic agent; Z88.8 Allergy status to other drugs, medicaments and biological substances
CPT/HCPCS: 36415; 71010; 78452; 80048; 80076; 81001; 82553; 83735; 83880; 84439; 84443; 84481; 84484; 85007; 85027; 85610; 93005; 93017; 93306; 96361; 96365; 96374; 96375; 96376; A9500; G0481; J1160; J2785; J3490; J7030; 99291-25

== ENCOUNTER 2017-02-17 22:51 | Emergency (ER) | payer BC ==
[~2017-02-17] VITALS: Ht 172.7 cm; Wt 98.9 kg
[~2017-02-17 22:51] MED LIST: ASPI-630 PO; DILT120C80 PO; ESTR1PAT42; LATA2.5D3 EACHEYE; LEVO88TA2 PO
[2017-02-17] MEDS ORDERED: ASPIRIN 325 MG TABLET PO ONE (23:15)
[2017-02-17 23:28] LABS: BASO % 1 % (0-3); EOS % 2 % (0-3); HEMATOCRIT 40.5 % (36.0-47.0); HEMOGLOBIN 13.4 g/dL (12.0-15.5); LYMPH # 1.7 x10^3/uL (1.0-4.8); LYMPH % 52 % (24-48); MEAN CORPUSCULAR HEMOGLOBIN 28 pg (25-35); MEAN CORPUSCULAR HGB CONC 33 g/dL (31-37); MEAN CORPUSCULAR VOLUME 84 fL (79-100); MONO % 6 % (0-9); NEUT % 40 % (31-73); PLATELET COUNT 124 x10^3/uL (140-400); RED BLOOD COUNT 4.82 x10^6/uL (3.50-5.40); RED CELL DISTRIBUTION WIDTH 14.3 % (11.5-14.5); WHITE BLOOD COUNT 3.3 x10^3/uL (4.0-11.0)
--- NOTE | 2017-02-17 23:32 | PHYS DOC ---
Past Medical History Past Medical History: Glaucoma, Hypothyroid Past Surgical History: Hysterectomy, Other Additional Past Surgical Histo: SINUS SURGERY Alcohol Use: None Drug Use: None Adult General Chief Complaint Chief Complaint: CHEST PAIN HPI HPI Patient is a 56 year old female who presents with chest pain. Patient reports onset of symptoms about 3 hours prior to arrival while at rest watching TV. She states pain is pressure-like, radiating to left arm, also associated with left arm numbness. She reports mild dizziness while experiencing chest pain. She reports shortness of breath. Denies nausea or diaphoresis. Denies fevers or chills, cough, lower extremity pain or swelling. Denies extremity weakness, facial droop, speech changes. Denies previous history of similar symptoms. Chest pain has improved and is very mild at this time, arm numbness completely resolved. She was hospitalized one week ago with new diagnosis of atrial fibrillation with rapid ventricular rate. Spontaneously converted to sinus rhythm, taking Cardizem as prescribed by her ramp lead. She was not started on warfarin. She denies any other cardiac history including NC or stent placement, denies diabetes, hypertension, hyperlipidemia. Nonsmoker. No PCP, ramp lead is Dr. Leroy. Review of Systems Review of Systems Constitutional: Denies fever or chills Eyes: Denies change in visual acuity HENT: Denies nasal congestion or sore throat Respiratory: Denies cough, reports shortness of breath Cardiovascular: Reports chest pain, denies edema GI: Denies abdominal pain, nausea, vomiting, bloody stools or diarrhea Musculoskeletal: Denies back pain or joint pain Integument: Denies rash or skin lesions Neurologic: Denies headache, reports arm numbness Current Medications Current Medications Current Medications Medications (Trade) Dose Ordered Sig/Angeline Start Time Stop Time Status Last Admin Dose Admin Aspirin (Maximus Aspirin) 325 mg 1X ONCE 02/17/17 23:15 02/17/17 23:16 DC 02/17/17 23:25 325 MG Allergies Allergies Allergies Coded Allergies Type Severity Reaction Last Updated Verified Penicillins Allergy Intermediate 02/10/17 Yes Sulfa (Sulfonamide Antibiotics) Allergy Intermediate 02/10/17 Yes acetaminophen Allergy Intermediate 02/10/17 Yes oxycodone Allergy Intermediate 02/10/17 Yes prednisone Allergy Intermediate 02/10/17 Yes Physical Exam Physical Exam Constitutional: Obese, anxious, non-toxic appearance. HENT: Normocephalic, atraumatic, bilateral external ears normal, oropharynx moist, nose normal. Eyes: PERRLA, EOMI, conjunctiva normal, no discharge. Neck: supple, no stridor. Cardiovascular: RRR, no murmurs, no edema. Lungs & Thorax: LCTAB, no wheezing, no respiratory distress. Reproducible tenderness with palpation over left anterior chest wall Abdomen: soft, nontender, nondistended. Skin: Warm, dry, no erythema, no rash. Back: No tenderness. Extremities: No tenderness, no edema. Neurologic: Alert and oriented X 3, cranial nerves II through XII grossly intact , symmetric strength and sensation upper and lower extremities, no focal deficits noted. Psychologic: Affect normal, judgement normal, mood normal. Current Patient Data Vital Signs Vital Signs Date Time Temp Pulse Resp B/P (MAP) Pulse Ox O2 Delivery O2 Flow Rate FiO2 02/18/17 00:30 80 18 150/74 (99) 97 Room Air 02/17/17 22:57 98.4 98.4 Lab Values Laboratory Tests Test 02/17/17 23:15 02/18/17 01:17 White Blood Count 3.3 x10^3/uL (4.0-11.0) L Red Blood Count 4.82 x10^6/uL (3.50-5.40) Hemoglobin 13.4 g/dL (12.0-15.5) Hematocrit 40.5 % (36.0-47.0) Mean Corpuscular Volume 84 fL (79-100) Mean Corpuscular Hemoglobin 28 pg (25-35) Mean Corpuscular Hemoglobin Concent 33 g/dL (31-37) Red Cell Distribution Width 14.3 % (11.5-14.5) Platelet Count 124 x10^3/uL (140-400) L Neutrophils (%) (Auto) 40 % (31-73) Lymphocytes (%) (Auto) 52 % (24-48) H Monocytes (%) (Auto) 6 % (0-9) Eosinophils (%) (Auto) 2 % (0-3) Basophils (%) (Auto) 1 % (0-3) Neutrophils # (Auto) 1.3 x10^3uL (1.8-7.7) L Lymphocytes # (Auto) 1.7 x10^3/uL (1.0-4.8) Monocytes # (Auto) 0.2 x10^3/uL (0.0-1.1) Eosinophils # (Auto) 0.1 x10^3/uL (0.0-0.7) Basophils # (Auto) 0.0 x10^3/uL (0.0-0.2) Segmented Neutrophils % 31 % (35-66) L Band Neutrophils % 4 % (0-9) Lymphocytes % 56 % (24-48) H Atypical Lymphocytes % (Manual) 1 % (0-0) H Monocytes % 4 % (0-10) Eosinophils % 4 % (0-5) Platelet Estimate Adequate (ADEQUATE) Prothrombin Time 13.1 SEC (11.7-14.0) Prothrombin Time INR 1.1 (0.8-1.1) PTT 26 SEC (24-38) Sodium Level 143 mmol/L (136-145) Potassium Level 3.7 mmol/L (3.5-5.1) Chloride Level 106 mmol/L (98-107) Carbon Dioxide Level 28 mmol/L (21-32) Anion Gap 9 (6-14) Blood Urea Nitrogen 22 mg/dL (7-20) H Creatinine 0.9 mg/dL (0.6-1.0) Estimated GFR (Cockcroft-Gault) 64.8 BUN/Creatinine Ratio 24 (6-20) H Glucose Level 96 mg/dL (70-99) Calcium Level 8.5 mg/dL (8.5-10.1) Total Bilirubin 0.4 mg/dL (0.2-1.0) Aspartate Amino Transferase (AST) 15 U/L (15-37) Alanine Aminotransferase (ALT) 31 U/L (14-59) Alkaline Phosphatase 117 U/L (46-116) H Troponin I Quantitative < 0.017 ng/mL (0.000-0.055) < 0.017 ng/mL (0.000-0.055) YR-Yeq-J-Type Natriuretic Peptide 77 pg/mL (0-124) Total Protein 6.9 g/dL (6.4-8.2) Albumin 3.8 g/dL (3.4-5.0) Albumin/Globulin Ratio 1.2 (1.0-1.7) Laboratory Tests 02/17/17 23:15 Laboratory Tests 02/17/17 23:15 EKG EKG Interpreted by me: Normal sinus rhythm rate 95, no acute ST or T wave changes, normal intervals, no ectopy. [] Radiology/Procedures Radiology/Procedures Chest x-ray: Interpreted by me: No cardiomegaly, no infiltrate, no pneumothorax , no acute process. [] Course & Med Decision Making Course & Med Decision Making Pertinent Labs and Imaging studies reviewed. (See chart for details) The patient presents with chest pain. Administered aspirin upon arrival. Gave pain medication. Obtained labs, EKG, chest x-ray. Consulted with Dr. Leroy who was familiar with the patient from previous hospital admission. She had negative stress test as well as echocardiogram performed at that time. He advised no need for admission or further cardiac evaluation at this time. She may follow-up in the clinic for further evaluation as needed. Obtained second set troponin which is persistently negative. Patient felt better, was comfortable with plan for discharge home. Discussed recommendations extensively and answered all questions from the patient and her . She may try taking Tylenol for pain. Call the cardiology clinic in the morning for a follow-up appointment within about 2-3 days. Return to the emergency department for severe shortness of breath or chest pain, any otherwise worsening condition. She is discharged home in stable condition. [] Dragon Disclaimer Dragon Disclaimer This electronic medical record was generated, in whole or in part, using a voice recognition dictation system. Departure Departure Impression: Primary Impression: Chest pain Additional Impression: Essential hypertension Disposition: 01 HOME, SELF-CARE Condition: STABLE Referrals: NO PCP (PCP) BRISEIDA LEROY MD Patient Instructions: Chest Pain (Nonspecific), [id number] Additional Instructions: You were seen in the emergency department today for chest pain. Labs, EKG, chest x-ray did not show serious cause of symptoms. Please rest, consider taking Tylenol for pain. Follow-up with Dr. Leroy in the cardiology clinic within 2-3 days if possible. Return to the emergency department for severe shortness of breath or chest pain, any otherwise worsening condition. Problem Qualifiers GABRIELLA BAUTISTA MD Feb 17, 2017 23:31
[2017-02-17 23:38] LABS: CALCIUM 8.5 mg/dL (8.5-10.1); CREATININE 0.9 mg/dL (0.6-1.0); GFR 64.8; INR 1.1 (0.8-1.1); POTASSIUM 3.7 mmol/L (3.5-5.1); PROTHROMBIN TIME PATIENT 13.1 SEC (11.7-14.0)
[2017-02-17 23:44] LABS: ALBUMIN 3.8 g/dL (3.4-5.0); ALBUMIN/GLOBULIN RATIO 1.2 (1.0-1.7); TOTAL BILIRUBIN 0.4 mg/dL (0.2-1.0); TOTAL PROTEIN 6.9 g/dL (6.4-8.2)
[2017-02-17 23:56] LABS: % EOS 4 % (0-5)
[2017-02-17 23:57] LABS: PLT ESTIMATE ADEQUATE (ADEQUATE)
[2017-02-18 00:30] VITALS: BP 150/74
--- NOTE | 2017-02-18 06:22 | EKG ---
[facility] [address] [place] [address] Test Date: 2017-02-17 Test Time: 22:57:51 Pat Name: DEVAN LIU Department: Room: Gender: F [employer]: : 1960 Requested By: GABRIELLA BAUTISTA Order Number: [id number] Reading MD: Gifty Kerns Measurements Intervals [place] Rate: 95 P: 57 [place]: 116 QRS: 0 QRSD: 82 T: 13 QT: 364 QTc: 461 Interpretive Statements SINUS RHYTHM LEFTWARD AXIS QRS(T) CONTOUR ABNORMALITY CONSIDER ANTEROLATERAL MYOCARDIAL DAMAGE POSSIBLY ABNORMAL ECG RI6.01 Compared to ECG 02/11/2017 16:31:41 Left-axis deviation now present Electronically Signed On 02-21-2017 22:15:28 CDT by Gifty Kerns
--- NOTE | 2017-02-18 07:27 | RAD ---
Portable chest, 02/17/2017: History: Chest pain Comparison is made to a study from 02/10/2017. The heart size and pulmonary vascularity are normal. No pulmonary infiltrates are seen. There is no evidence of pleural fluid. IMPRESSION: No acute cardiopulmonary abnormality is detected.
== END 2017-02-18 02:30 | disposition home or self-care (01) ==
LOC: ER 22:51
DX: R07.89 Other chest pain (principal); I10 Essential (primary) hypertension; R20.0 Anesthesia of skin; R42 Dizziness and giddiness; R06.02 Shortness of breath; F41.9 Anxiety disorder, unspecified; E66.9 Obesity, unspecified; E03.9 Hypothyroidism, unspecified; H40.9 Unspecified glaucoma; Z88.2 Allergy status to sulfonamides; Z88.5 Allergy status to narcotic agent; Z88.8 Allergy status to other drugs, medicaments and biological substances; Z68.33 Body mass index [BMI] 33.0-33.9, adult; Z88.0 Allergy status to penicillin; Z90.710 Acquired absence of both cervix and uterus
CPT/HCPCS: 36415; 71010; 80053; 83880; 84484; 85007; 85027; 85610; 85730; 93005; 99285-25

== ENCOUNTER → 2017-11-21 | Outpatient (CLI) | payer BC | END | disposition home or self-care (01) | LOC: KCIC 15:41 | DX: M25.561 Pain in right knee (principal) | CPT/HCPCS: 73562 ==

== ENCOUNTER → 2018-01-14 | Outpatient (CLI) | payer BC | END | disposition home or self-care (01) | LOC: KCIC 11:31 | DX: J40 Bronchitis, not specified as acute or chronic (principal); I10 Essential (primary) hypertension; E03.9 Hypothyroidism, unspecified | CPT/HCPCS: 71046 ==

== ENCOUNTER 2018-05-07 06:26 | Day surgery (SDC) | payer BC ==
[~2018-05-07] VITALS: Ht 172.7 cm; Wt 106.6 kg
[~2018-05-07 06:26] MED LIST changes: +BUPIVACAINE-EPI 0.5%-1:200000 50 ML VIAL. ONE; +DEXAMETHASONE SOD PHOS 20 MG/5 ML VIAL. ONE; +DULO30CA2 PO; +GLUCAGON,HUMAN RECOMBINANT 1 MG/ML VIAL. ONE; +IOHEXOL 300 MG/ML 100ML VIAL. ONE; +LIDOCAINE 2% PF Vial for OR 5 ML VIAL. ONE; +LISD50CA3 PO; +METO25TA4 PO; +MULT1TAB52 PO; +ONDA4TAB10 SL; +ONDANSETRON PF 4 MG/2 ML VIAL. ONE; +OXYC-323 PO; +PROPOFOL 20 ML IV ONE; +ROCURONIUM 50 MG/5 ML VIAL. ONE; +SURGICEL HEMOSTAT 4X8 EACH. ONE
[2018-05-07] MEDS ORDERED: PROCHLORPERAZINE 10 MG/2 ML VIAL. IV PRN (07:00)
[2018-05-07] MEDS ORDERED: SCOPOLAMINE 1.5MG PATCH. TD ONE (07:00)
[2018-05-07] MEDS ORDERED: IV RINGERS,LACTATED 1000ML 1,000 ML IV SCH (07:00)
[2018-05-07] MEDS ORDERED: fentaNYL PF VIAL 100 MCG/2 ML VIAL IV PRN (07:00)
[2018-05-07] MEDS ORDERED: LIDOCAINE 1% PF 2 ML VIAL. ID PRN (07:00)
[2018-05-07] MEDS ORDERED: ONDANSETRON PF 4 MG/2 ML VIAL. IV PRN (07:00)
[2018-05-07] MEDS ORDERED: MIDAZOLAM HCL/PF 2 MG/2 ML VIAL. ONE (07:28)
[2018-05-07] MEDS ORDERED: fentaNYL PF VIAL 100 MCG/2 ML VIAL ONE ×3 (07:28→09:40)
[2018-05-07] MEDS ORDERED: diphenhydrAMINE 50 MG/ML VIAL ONE (08:16)
[2018-05-07] MEDS ORDERED: NEOSTIGMINE METHYLSULFATE 5 MG/5 ML SYRINGE. ONE (08:42)
[2018-05-07] MEDS ORDERED: GLYCOPYRROLATE 1 MG/5 ML VIAL. ONE (08:48)
[2018-05-07] MEDS ORDERED: SEVOFLURANE 61 TO 120 MINUTES. IH ONE (08:50)
--- NOTE | 2018-05-07 09:11 | RAD ---
EXAM: Intraoperative cholangiogram. HISTORY: Cholecystectomy. COMPARISON: 04/17/2018 FINDINGS: 5 fluoroscopic images were obtained during an intraoperative cholangiogram. The total cross be time is 0.31 minutes. The images demonstrate contrast opacification of the cystic duct and downstream common bile duct. There is subsequent contrast opacification of the proximal duodenum and downstream pancreatic duct. No retained stone or stricture is seen within the opacified biliary tree. IMPRESSION: Intraoperative cholangiogram without evidence of a retained stone. Electronically signed by: Anabel Do MD (05/07/2018 9:09 AM) [place] [id number]
[2018-05-07 09:16] LABS: BASO % 1 % (0-3); EOS % 1 % (0-3); HEMATOCRIT 37.7 % (36.0-47.0); HEMOGLOBIN 12.5 g/dL (12.0-15.5); LYMPH # 1.1 x10^3/uL (1.0-4.8); LYMPH % 49 % (24-48); MEAN CORPUSCULAR HEMOGLOBIN 28 pg (25-35); MEAN CORPUSCULAR HGB CONC 33 g/dL (31-37); MEAN CORPUSCULAR VOLUME 85 fL (79-100); MONO # 0.1 x10^3/uL (0.0-1.1); MONO % 6 % (0-9); NEUT % 43 % (31-73); PLATELET COUNT 102 x10^3/uL (140-400); RED BLOOD COUNT 4.47 x10^6/uL (3.50-5.40); RED CELL DISTRIBUTION WIDTH 14.1 % (11.5-14.5); WHITE BLOOD COUNT 2.2 x10^3/uL (4.0-11.0)
[2018-05-07 09:28] LABS: CALCIUM 8.5 mg/dL (8.5-10.1); CREATININE 0.9 mg/dL (0.6-1.0); GFR 64.5; POTASSIUM 4.4 mmol/L (3.5-5.1)
[2018-05-07 09:30] LABS: ALBUMIN 3.9 g/dL (3.4-5.0); ALBUMIN/GLOBULIN RATIO 1.4 (1.0-1.7); TOTAL BILIRUBIN 0.5 mg/dL (0.2-1.0); TOTAL PROTEIN 6.6 g/dL (6.4-8.2)
--- NOTE | 2018-05-07 09:30 | PDOC ---
BRIEF OPERATIVE NOTE Date: May 07, 2018 Pre-Op Diagnosis symptomatic cholelithiasis Post-Op Diagnosis same Procedure Performed l/s steven with grams Surgeon Brady Anesthesia Type: General Blood Loss 10cc IV Fluid 800cc Specimens Obtained GB Findings supple GB, normal grams Complications none Operative Note Wk # [id number] ERIKA SLATER MD May 07, 2018 09:30
--- NOTE | 2018-05-07 09:33 | DISCH ---
DISCHARGE INSTRUCTIONS Condition on Discharge Condition on Discharge: Stable Activity After Discharge Activity Instructions for Disc: Activity as tolerated, Avoid exertion Lifting Instructions after Dis: No heavy lifting Driving Instructions after Dis: Do not drive (3-4 days) Diet after Discharge Diet after Discharge: [place], Regular Wound Incision Care Wound/Incision Care: Ice to area for comfort, Change dressing Other wound/incision instructi: january shower Saturday Follow-Up Follow up with: Brady next week Treatment/Equipment after DC Adaptive Equipment Issued: None ERIKA SLATER MD May 07, 2018 09:33
--- NOTE | 2018-05-07 09:38 | OP ---
DATE OF SURGERY: 05/07/2018 PREOPERATIVE DIAGNOSIS: Symptomatic cholelithiasis with history of gallstone pancreatitis. POSTOPERATIVE DIAGNOSIS: Symptomatic cholelithiasis with history of gallstone pancreatitis. PROCEDURE: Laparoscopic cholecystectomy with cholangiogram. SURGEON: Erika Slater MD. ANESTHESIA: General endotracheal. ESTIMATED BLOOD LOSS: 10 mL. IV FLUID: 800. INDICATIONS: The patient is a 57-year-old female who approximately a month ago, was admitted with gallstone pancreatitis. She is brought for cholecystectomy. OPERATIVE FINDINGS: The liver was smooth and sharp. The gallbladder was supple. The spleen was enlarged, which had been identified previously. Remainder of the abdomen failed to reveal obvious abnormalities. OPERATIVE REPORT: The patient was brought to the operating suite, given a general endotracheal anesthetic and the abdomen prepped and draped in usual sterile fashion. A supraumbilical incision was infiltrated with local anesthetic, incised and a 5-mm Visiport used to gain access into the abdominal cavity. Pneumoperitoneum established. Camera inserted and inspection carried out with results as noted above. With the table in reverse Trendelenburg rolled to the left, the epigastric, midclavicular, and lateral ports were placed under direct vision. The gallbladder was retracted superolaterally and the cystic duct and artery were exposed. The duct was clipped on the gallbladder side. Cholangiograms were made. This showed a long cystic duct with no distal duct filling defect and spillage of contrast into the duodenum, however, despite steep Trendelenburg, I was unable to feel the proximal radicals. In light of this, the catheter was removed. The cystic duct was clipped x 3 and divided, taking care to avoid injury or compromise the common duct. The cystic artery was clipped and divided and gallbladder freed from the bed with cautery dissection and placed in an EndoCatch bag. Hemostasis obtained in the fossa with some Surgicel and cautery. No evidence of bile leak seen. Table returned to level. Gallbladder delivered through the epigastric incision. Epigastric incision closed with interrupted 0 Vicryl suture. Intra-abdominal pressure decreased to 6 cm of water. No bleeding from the epigastric port site closure or from the midclavicular port site after its removal or from the lateral position where the "alligator" grasper had been used. Abdomen decompressed, camera slowly removed, no bleeding seen. Skin incisions closed with subcuticular 4-0 Monocryl. Steri-Strips and sterile dressings applied. The patient awakened from her anesthetic and taken to the recovery room in satisfactory condition. ERIKA SLATER MD DR: ADRIENNE/esme JOB#: [id number] / [id number]
[2018-05-07] MEDS: fentaNYL PF VIAL 100 MCG/2 ML VIAL IV PRN ×2 (09:44→10:00)
[2018-05-07] MEDS ORDERED: PROCHLORPERAZINE 10 MG/2 ML VIAL. ONE (09:58)
[2018-05-07] MEDS ORDERED: HYDROcodone/APAP 5/325MG 1 TAB TABLET PO PRN (11:15)
[2018-05-07] MEDS ORDERED: HYDR-971 PO (11:17)
[2018-05-07 13:15] VITALS: BP 125/56
== END 2018-05-07 14:00 | disposition home or self-care (01) ==
LOC: SURG 06:26
PROVIDERS: ATTEND Surgery
DX: K80.20 Calculus of gallbladder without cholecystitis without obstruction (principal); K85.90 Acute pancreatitis without necrosis or infection, unspecified; F41.9 Anxiety disorder, unspecified; I10 Essential (primary) hypertension; E03.9 Hypothyroidism, unspecified; F32.9 Major depressive disorder, single episode, unspecified; E66.9 Obesity, unspecified; I48.91 Unspecified atrial fibrillation; Z79.899 Other long term (current) drug therapy; Z79.82 Long term (current) use of aspirin; Z90.710 Acquired absence of both cervix and uterus; Z88.6 Allergy status to analgesic agent; Z88.5 Allergy status to narcotic agent; Z88.0 Allergy status to penicillin; Z88.8 Allergy status to other drugs, medicaments and biological substances; Z80.0 Family history of malignant neoplasm of digestive organs
CPT/HCPCS: 36415; 47563; 74300; 80053; 85025; J0780; J1100; J1200; J1956; J2001; J2250; J2405; J2704; J2710; J3010; J3490; J7030; Q9967; A7015; J1610

== ENCOUNTER → 2018-06-23 | Outpatient (CLI) | payer BC ==
[~2018-06-23] MED LIST changes: -BUPIVACAINE-EPI 0.5%-1:200000 50 ML VIAL. ONE; +CONTRAST GIVEN. MC PRN; -DEXAMETHASONE SOD PHOS 20 MG/5 ML VIAL. ONE; -GLUCAGON,HUMAN RECOMBINANT 1 MG/ML VIAL. ONE; +HYDR-971 PO; +IOHEXOL 240 MG/ML 50ML VIAL. PO ONE; +IOHEXOL 300 MG/ML 100ML VIAL. IV ONE; -IOHEXOL 300 MG/ML 100ML VIAL. ONE; -LIDOCAINE 2% PF Vial for OR 5 ML VIAL. ONE; -ONDANSETRON PF 4 MG/2 ML VIAL. ONE; -PROPOFOL 20 ML IV ONE; -ROCURONIUM 50 MG/5 ML VIAL. ONE; -SURGICEL HEMOSTAT 4X8 EACH. ONE
--- NOTE | 2018-06-23 16:44 | KCIC ---
CT CHEST ABD PELVIS W/CONTRAST Indication: Splenomegaly, pancytopenia. Total hysterectomy. Cholecystectomy. Exposure: One or more of the following individualized dose reduction techniques were utilized for this examination: 1. Automated exposure control 2. Adjustment of the mA and/or kV according to patient size 3. Use of iterative reconstruction technique. Comparison: Prior CT abdomen pelvis dated April 17, 2018 Contrast: Intravenous contrast was given. Oral contrast was given. CHEST: Thoracic aorta: No evidence of thoracic aortic aneurysm or dissection. Great vessel origins: Patent Pulmonary arteries: Main central arteries appear patent. Thyroid gland: Visualized aspect is unremarkable. Lymph nodes: No significant enlargement Heart: No significant pericadial effusion. Esophagus: Unremarkable Pleural spaces: No significant effusion Lungs: No significant pulmonary mass. No consolidating infiltrate. Mild linear markings in the lung bases, likely atelectasis. Trachea and central airways: Patent Spine: Degenerative spondylosis. Bones: No destructive process. Impression: No acute findings in the chest ABDOMEN PELVIS: Liver: Unremarkable Spleen: Marked splenomegaly, about 21 cm cephalocaudal, as compared with 22 cm on prior study. Pancreas: Unremarkable Adrenals: No evidence of mass. Kidneys: No obvious mass. Urinary tracts: No hydronephrosis. Gallbladder: Surgically absent Lymph nodes: No significant enlargement Vessels: * Aorta: Nonaneurysmal * Major aortic branches: Grossly patent. * Portal venous: Patent GI tract: Mild retained stool in the colon. No bowel obstruction. Appendix is not clearly visualized. Reproductive organs:No evidence of mass. Urinary bladder: Not adequately distended for evaluation. Peritoneum: No evidence of pneumoperitoneum. No free fluid. Abdominal wall: Mild ill-defined density within the subcutaneous fat of the anterior abdominal wall just to the right of midline, superiorly, not seen previously. This could represent a small area of bruising or inflammation. Spine: Degenerative spondylosis with stenosis. Transitional vertebral body at the lumbosacral junction. Appearance and alignment appears similar to previous exam. Bones: No destructive process identified. IMPRESSION: 1. Severe splenomegaly. 2. Small area of stranding in the subcutaneous fat of the right upper anterior abdominal wall, may represent a focal area of bruising or inflammation. Electronically signed by: Kalen Addison MD (06/23/2018 4:41 PM) [id number]
== END | disposition home or self-care (01) ==
LOC: KCIC CT 14:16
PROVIDERS: ATTEND Internal Medicine Hematology & Oncology
DX: M47.894 Other spondylosis, thoracic region (principal); M47.896 Other spondylosis, lumbar region; M48.061 Spinal stenosis, lumbar region without neurogenic claudication; R16.1 Splenomegaly, not elsewhere classified
CPT/HCPCS: 71260; 74177; Q9966; Q9967

== ENCOUNTER → 2018-09-19 | Outpatient (CLI) | payer BC ==
[~2018-09-19] MED LIST changes: -CONTRAST GIVEN. MC PRN; -DILT120C80 PO; +DILT120C85 PO; +HYDR-3164 PO; -HYDR-971 PO; -IOHEXOL 240 MG/ML 50ML VIAL. PO ONE; -IOHEXOL 300 MG/ML 100ML VIAL. IV ONE; -OXYC-323 PO; +OXYC1TAB15 PO
--- NOTE | 2018-09-19 09:57 | KCIC ---
EXAM: AP and lateral views of the right femur DATE: 09/19/2018 10:30 AM INDICATION: Soft tissue prominence right thigh, lipoma COMPARISON: No Prior FINDINGS: No evidence for acute fracture or dislocation. Osseous structures are grossly unremarkable. Right hip joint space is preserved. A radiopaque marker was placed denoting site of palpable abnormality. No definite subjacent osseous or soft tissue abnormalities identified within the limitations of radiography IMPRESSION: 1. No definite soft tissue or osseous abnormalities seen subjacent to the radiopaque marker denoting site of the palpable abnormality. Soft tissue lesions can be better assessed by MRI. Electronically signed by: Daniel Mallory MD (09/19/2018 9:53 AM) [facility]
--- NOTE | 2018-09-19 12:10 | KCIC ---
EXAM: Right thigh sonogram. HISTORY: Palpable lump. TECHNIQUE: Sonographic imaging of the right thigh at the site of palpable concern was performed. COMPARISON: None. FINDINGS: There is no sonographic finding at the site of palpable concern within the anterior lateral right thigh. The sonographic appearance is similar to that of the contralateral thigh in this location. IMPRESSION: No sonographic correlate for a palpable abnormality within the right thigh. Continued clinical follow-up of palpable abnormalities is recommended. MRI or CT can be considered if there is concern for a sonographically occult lesion. Electronically signed by: Anabel Do MD (09/19/2018 12:05 PM) [place] [id number]
== END | disposition home or self-care (01) ==
LOC: KCIC US 07:59
PROVIDERS: ATTEND Nurse Practitioner Family
DX: D17.23 Benign lipomatous neoplasm of skin and subcutaneous tissue of right leg (principal)
CPT/HCPCS: 73552; 76881

== ENCOUNTER → 2018-10-06 | Outpatient (CLI) | payer BC ==
--- NOTE | 2018-10-06 08:23 | RAD ---
Indication:SPLENOMEGALY TECHNIQUE: Grayscale, color Doppler and spectral waveform is of the abdomen obtained. COMPARISON:04/17/2018 FINDINGS: Visualized pancreas is within normal limits. IVC is patent. No aortic aneurysm. Liver measures 17 cm in longest dimension with mildly diffuse increased echogenicity but is normal in size. Main portal vein is patent. CBD measures 4 mm in diameter and is within normal limits. Inferior pole of the right kidney is not visualized however the kidney grossly measures 12.6 cm in length without hydronephrosis. Spleen is moderately enlarged measuring 26 x 8.1 x 10.0 cm (length, AP, transverse), previously 22 cm in length. Accessory spleen is seen measuring 2.1 x 2.0 x 2.0 cm. Left kidney measures 12.1 cm in length without hydronephrosis. Gallbladder surgically absent. IMPRESSION: Slight interval increase in the size of splenomegaly as described above. Electronically signed by: Jh Bonilla DO (10/06/2018 8:19 AM) [id number]
== END | disposition home or self-care (01) ==
LOC: US 07:13
PROVIDERS: ATTEND Internal Medicine Hematology & Oncology
DX: R16.1 Splenomegaly, not elsewhere classified (principal); Q89.09 Congenital malformations of spleen
CPT/HCPCS: 76700

== ENCOUNTER 2018-10-10 10:03 | Outpatient (CLI) | payer BC ==
[~2018-10-10] VITALS: Ht 175.3 cm; Wt 114.3 kg
[2018-10-10] VITALS (10 sets, daily range): BP systolic 121–157; BP diastolic 57–88
[2018-10-10] MEDS ORDERED: LIDOCAINE WITH 8.4% SOD BICARB 3 ML DISP.SYRIN. ONE ×2 (10:17→11:06)
[2018-10-10] MEDS ORDERED: MIDAZOLAM HCL/PF 2 MG/2 ML VIAL. ONE (10:32)
[2018-10-10] MEDS ORDERED: fentaNYL PF VIAL 100 MCG/2 ML VIAL ONE (10:32)
[2018-10-10 10:49] LABS: BASO % 1 % (0-3); EOS % 2 % (0-3); HEMATOCRIT 37.8 % (36.0-47.0); HEMOGLOBIN 12.2 g/dL (12.0-15.5); LYMPH # 0.9 x10^3/uL (1.0-4.8); LYMPH % 39 % (24-48); MEAN CORPUSCULAR HEMOGLOBIN 27 pg (25-35); MEAN CORPUSCULAR HGB CONC 32 g/dL (31-37); MEAN CORPUSCULAR VOLUME 82 fL (79-100); MONO # 0.2 x10^3/uL (0.0-1.1); MONO % 7 % (0-9); NEUT # 1.2 x10^3uL (1.8-7.7); NEUT % 51 % (31-73); PLATELET COUNT 104 x10^3/uL (140-400); RED CELL DISTRIBUTION WIDTH 14.9 % (11.5-14.5); WHITE BLOOD COUNT 2.4 x10^3/uL (4.0-11.0)
[2018-10-10 10:51] LABS: PROTHROMBIN TIME PATIENT 12.8 SEC (11.7-14.0)
[2018-10-10] MEDS ORDERED: fentaNYL PF VIAL 100 MCG/2 ML VIAL IV ONE (11:15)
[2018-10-10] MEDS ORDERED: MIDAZOLAM HCL/PF 2 MG/2 ML VIAL. IV ONE (11:15)
[2018-10-10] MEDS ORDERED: LIDOCAINE WITH 8.4% SOD BICARB 3 ML DISP.SYRIN. IJ ONE (11:15)
[2018-10-10] MEDS ORDERED: BIOT10005 PO (11:50)
--- NOTE | 2018-10-10 12:55 | NUR ---
pt A&O x3. VSS. dressing dry and intact. tolerating po well. ambulated to BR w/o problem. d/c instructions reviewed and questions answered. out to vehicle per w/c- to drive her home.
--- NOTE | 2018-10-10 14:43 | RAD ---
CT-guided bone marrow biopsy. 10/10/2018 2:38 PM Indication: Pancytopenia Discussion: The risks and benefits of the procedure, including but not limited to, bleeding and infection were discussed patient. Informed consent was obtained. The patient was brought to the CT scanner and placed in the prone position. A timeout procedure was performed. Basket Maker CT imaging of the pelvis demonstrated left ilium amenable to bone marrow biopsy. The overlying soft tissues were prepped and draped using maximum sterile barrier technique. 1% lidocaine without epinephrine was administered for local anesthesia. Under intermittent CT guidance, an Onc Control needle was advanced into the bone marrow of the left iliac crest. 2 Aspirates and 1 core biopsy samples were obtained. Samples were delivered to pathology was present at the time of procedure. The needle was removed and manual pressure held to achieve hemostasis. No immediate complications were identified. The procedure was performed under conscious sedation including continuous cardiopulmonary monitoring via dedicated sedation nurse. Sedation time: 20 minutes Impression: Successful CT-guided bone marrow biopsy of the left iliac crest . PQRS Compliance Statement: One or more of the following individualized dose reduction techniques were utilized for this examination: 1. Automated exposure control 2. Adjustment of the mA and/or kV according to patient size 3. Use of iterative reconstruction technique
--- NOTE | 2018-10-27 09:06 | PATHOLOGY ---
[facility] Accession Number: [id number] . 01 Material submitted: . PART A: BONE MARROW BIOPSY PART B: BONE MARROW CLOT PART C: BONE MARROW ASPRIATE SLIDES PART D: PERIPHERAL BLOOD SMEAR PART E: BONE MARROW FLOW . 01 Clinical history: . Splenomegaly . 02 Diagnosis: Peripheral smear: - Moderate leukopenia with mild absolute neutropenia and lymphopenia. - Thrombocytopenia, mild. . 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 - Absent iron stores. . (JACKLYNM:mike; 10/24/2018) MBR/10/27/2018 . 02 Comment: The peripheral smear shows moderate leukopenia with mild absolute neutropenia and lymphopenia, and mild thrombocytopenia. 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 The lymphoproliferative disorder involves no more than 5-10% of nucleated marrow cells. 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 Correlate clinically. (ELLIE:mike; 10/24/2018) . Special stains performed: Iron stain on B1 and the aspirate smear, reticulin stain on A1. Immunoperoxidase stains on block B1 are CD20, CD3, CD5, CD10, BCL-2, BCL-6, CD23, Cyclin D1; and on A1, CD20 and CD3. . 02 Electronically signed: . Ronnell Syed MD, Pathologist NPI- [id number] . 01 Gross description: . A. The specimen is received in formalin, labeled "Lauren Tenorio BM BX". Received are two needle cores of light chowdhury bone measuring 0.8 and 1.4 cm in length, with each measuring 0.3 cm in diameter. The specimen is submitted entirely in cassette A1, following light decalcification. . B. The specimen is received in formalin, labeled "Lauren Tenorio, BM aspirate clot". Received is a slight amount of blood clot measuring 1.0 x 0.6 x 0.1 in aggregate dimensions. The specimen is filtered and entirely submitted in cassette B1. (CAA; 10/10/2018) QAC/QAC . 02 Microscopic: . Laboratory Data: The CBC results are dated 10/10/18. The WBC count is 2.4 K/CMM, and the automated WBC differential reveals 51% neutrophils, 39% lymphs, 7% monos, 2% eos, and 1% baso. The RBC count is 4.60 M/CMM, hemoglobin 12.2 G/DL, hematocrit 37.8%, MCV 82 FL, MCH 27 PG, MCHC 32 G/DL, and the RDW is 14.9%. The platelet count is 104 K/CMM. CT scan of the abdomen and pelvis shows marked splenomegaly. . Peripheral Smear: The peripheral smear is reviewed. The WBC count is moderately decreased. There is a mild absolute neutropenia and absolute lymphopenia. The WBC differential reveals a predominance of segmented neutrophils, with a slightly smaller population of lymphocytes and with several monocytes and occasional eosinophils noted. Neutrophils do not show dysplastic changes. There is no significant neutrophilic left shift. There are no circulating blasts. There is no leukoerythroblastic reaction. The lymphocyte population consists of small lymphocytes, reactive appearing lymphocytes, and occasional abnormal lymphoid cells having a focally frayed cytoplasm and possessing round to ovoid nuclei containing small nucleoli. Red blood cells predominantly appear normochromic and normocytic. Red blood cells show mild anisocytosis. Red blood cells show mild poikilocytosis with ovalocytes and an occasional teardrop red blood cell noted. Platelets are mildly decreased and appear normal in morphology with an occasional large platelet noted. . Aspirate Smears: Two Clarke's-stained and one iron-stained aspirate smears are examined. The smears contain a few cellular marrow particles. The M/E ratio is within normal range. Erythroid maturation appears normoblastic. There are no megaloblastic or obvious dysplastic changes. Granulocytic maturation appears normal. There is no significant left shift or dysplastic changes. There is no increase of blasts. Megakaryocytes are present and are focally clustered. Megakaryocytes are of variable ploidy. Plasma cells are not increased. There are admixed small lymphocytes, which are somewhat difficult to quantify because of the presence of naked nuclei. The majority of these lymphocytes are small, have a high N/C ratio, and rounded nuclei having coarsely condensed chromatin. Some of the lymphoid cells have modest cytoplasm and rounded to ovoid nuclei containing inconspicuous nucleoli. The iron-stain aspirate smear contains a single marrow particle showing absent iron stores. . Bone Marrow Biopsy and Clot Sections: Sections of the bone marrow biopsy reveal segments of bone marrow which range between 30% and 60% cellular. The clot section contains multiple marrow particles, the majority of which range between 20% and 60% cellular. There is trilineage hematopoiesis. There is a good admixture of erythroid and granulocytic precursors, which are present in varying stages of maturation. There is no apparent increase of blasts. Megakaryocytes appear adequate in number and are of variable ploidy. Plasma cells are not increased. There are several lymphoid nodules within the biopsy. These do not have a paratrabecular localization. These nodules are composed of small lymphocytes having rounded to slightly irregular nuclei. The clot section contains more numerous lymphoid nodules which vary in size and are also comprised of small lymphocytes having rounded to slightly irregular nuclei. Some of the lymphoid nodules have germinal centers comprised of a mixture of small and large lymphoid cells. There are no granulomas. There are no other cells foreign to the marrow. To confirm flow cytometric findings and characterize the target cells in a tissue architectural context, immunoperoxidase stains are obtained and yield the following results: . CD20 (A1): Significant population of small lymphocytes within lymphoid nodules positive; scattered small lymphocytes positive having an interstitial distribution. . CD3 (A1): Significant subpopulation of small lymphocytes within lymphoid nodules positive; small population of small lymphocytes positive having an interstitial distribution. . CD20 (B1): Predominant population of small lymphocytes within lymphoid nodules positive, scattered small lymphocytes positive having an interstitial distribution; B-cell lymphoid infiltrate comprises no more than 10% of nucleated marrow cells. . CD3 (B1): Significant subpopulation of small lymphocytes within lymphoid nodules positive; small population of small lymphocytes positive having an interstitial distribution. . CD5 (B1):Small lymphocytes positive similar to CD3 pattern. . CD10 (B1): Small lymphocytes within lymphoid nodules negative. . BCL-2 (B1): Small lymphocytes positive within lymphoid nodules and interstitium. . BCL-6 (B1): Lymphocytes within residual germinal centers positive. . CD23 (B1): Dendritic cells within residual germinal centers positive and small lymphocytes within nodules and interstitium negative. . Cyclin D-1 (B1): Small lymphocytes within nodules and interstitium negative. . A reticulin stain obtained on the bone marrow biopsy shows a focal mild increase of reticulin fibers especially associated with the lymphoid nodules. An iron stain obtained on the clot section shows absent iron stores. . Special Studies: Bone marrow submitted for flow cytometry has a viability of 97.7%. Granulocytes comprise 72.3% of total cells and show phenotypic evidence of maturation. Monocytes comprise 2.4% of total cells. CD45 dim, CD34 positive cells comprise 0.8% of total cells. Plasma cells are not increased and show unremarkable surface marker expression. Lymphocytes comprise 14.9% of total cells. T-cells comprise 56% of lymphoid cells and show a CD4/CD8 ratio of 2.3. NK-cells comprise 3% of lymphoid cells. B-cells comprise 40% of lymphoid cells and are monoclonal and show lambda light chain restriction. These B-cells are CD19, CD20 (moderate), and HLA-DR positive. These B-cells are CD5, CD10, CD11c, and CD23 negative. . Bone marrow submitted for cytogenetic analysis shows a normal female karyotype in all cells analyzed. (JPM/db/aniline press worker; 10/24/2018) . 02 Pathologist provided ICD-10: D72.819, D72.810, D69.6, D75.89 . 02 CPT . 513212, 808684, 637373, 567740, 492846, 591101, [id number], 750462, B04878, [id number] Specimen Comment: A courtesy copy of this report has been sent to Specimen Comment: [phone], , . Specimen Comment: Report sent to ,DR HERNANDEZ / DR QUIÑONES Specimen Comment: A duplicate report has been generated due to demographic updates. Performed at: [address] [place], [place] [id number] [facility] [address], [place], [place] [id number] MD Juancho Small MD Phone: [phone] Performed at: [address] [id number] MD Ronnell Syed MD Phone: [phone]
== END 2018-10-10 12:55 | disposition home or self-care (01) ==
LOC: INTRAD 10:03
PROVIDERS: ATTEND Internal Medicine Hematology & Oncology
DX: D70.8 Other neutropenia (principal); C94.80 Other specified leukemias not having achieved remission; D69.6 Thrombocytopenia, unspecified; D70.4 Cyclic neutropenia; Z88.0 Allergy status to penicillin; Z88.2 Allergy status to sulfonamides; Z88.8 Allergy status to other drugs, medicaments and biological substances; Z79.82 Long term (current) use of aspirin; Z79.899 Other long term (current) drug therapy
CPT/HCPCS: 36415; 38222; 77012; 85025; 85347; 85610; 88184; 88185; 88237; J2250; J3010; 88305; 88311; 88313; 88341; 88342; 99152

== ENCOUNTER → 2018-10-13 | Outpatient (CLI) | payer BC ==
[2018-10-10 12:25] VITALS: BP 133/59
[~2018-10-13] MED LIST changes: +BIOT10005 PO; +GADOBUTROL 10 MMOL/10 ML VIAL IV ONE
--- NOTE | 2018-10-13 13:09 | RAD ---
EXAM: MRI RIGHT THIGH WITHOUT AND WITH IV CONTRAST DATE: 10/13/2018 9:45 AM CLINICAL INDICATION: PALPABLE MASS ON RIGHT THIGH X 1 MONTH, PAIN AND DISCOMFORT COMPARISON: None. TECHNIQUE: Multiplanar, multisequence MRI of the right thigh was performed before and after administration of IV contrast contrast. FINDINGS: Fiducial marker seen at the anterolateral aspect of the right thigh denoting site of palpable abnormality/pain. Immediately subjacent to the facial marker is normal-appearing subcutaneous soft tissue. There is mild bulging of the vastus lateralis muscle without associated edema, likely physiologic and morphology for the vastus lateralis in this patient. T1 marrow signal is preserved. No evidence for marrow edema. No fracture or AVN. On this marginal, large [id number] evaluation of the knee joint, no knee joint effusion. On the postcontrast images, no abnormal enhancement is identified. IMPRESSION: 1. No discrete soft tissue mass is seen in the region of the fiducial marker which denotes site of palpable abnormality. Mild prominence of the vastus lateralis muscle may account for the patients symptoms. Electronically signed by: Daniel Mallory MD (10/13/2018 1:04 PM) [id number]
== END | disposition home or self-care (01) ==
LOC: MRI 09:37
PROVIDERS: ATTEND Internal Medicine Hematology & Oncology
DX: R22.41 Localized swelling, mass and lump, right lower limb (principal); D61.818 Other pancytopenia; R16.1 Splenomegaly, not elsewhere classified
CPT/HCPCS: 73720; A9585

== ENCOUNTER 2018-11-13 08:22 | Outpatient (CLI) | payer BC ==
[~2018-11-13] VITALS: Ht 175.3 cm; Wt 114.3 kg
[2018-11-13] VITALS (7 sets, daily range): BP systolic 123–145; BP diastolic 61–76
[~2018-11-13 08:22] MED LIST changes: -GADOBUTROL 10 MMOL/10 ML VIAL IV ONE
[2018-11-13 09:06] LABS: BASO % 1 % (0-3); EOS % 2 % (0-3); HEMATOCRIT 35.5 % (36.0-47.0); HEMOGLOBIN 11.5 g/dL (12.0-15.5); LYMPH # 0.7 x10^3/uL (1.0-4.8); LYMPH % 41 % (24-48); MEAN CORPUSCULAR HEMOGLOBIN 27 pg (25-35); MEAN CORPUSCULAR HGB CONC 32 g/dL (31-37); MEAN CORPUSCULAR VOLUME 82 fL (79-100); MONO # 0.1 x10^3/uL (0.0-1.1); MONO % 7 % (0-9); NEUT # 0.9 x10^3uL (1.8-7.7); NEUT % 50 % (31-73); PLATELET COUNT 95 x10^3/uL (140-400); RED CELL DISTRIBUTION WIDTH 14.8 % (11.5-14.5)
[2018-11-13 09:17] LABS: PROTHROMBIN TIME PATIENT 13.6 SEC (11.7-14.0)
[2018-11-13 09:22] LABS: WHITE BLOOD COUNT 1.8 x10^3/uL (4.0-11.0)
[2018-11-13] MEDS ORDERED: LIDOCAINE 1%/EPI 1:100,000 20 ML VIAL. ONE (10:04)
[2018-11-13] MEDS ORDERED: MIDAZOLAM HCL/PF 2 MG/2 ML VIAL. ONE (10:20)
[2018-11-13] MEDS ORDERED: fentaNYL PF VIAL 100 MCG/2 ML VIAL ONE (10:20)
[2018-11-13] MEDS ORDERED: MIDAZOLAM HCL/PF 2 MG/2 ML VIAL. IV ONE (10:45)
[2018-11-13] MEDS ORDERED: LIDOCAINE 1%/EPI 1:100,000 20 ML VIAL. IJ ONE (10:45)
[2018-11-13] MEDS ORDERED: fentaNYL PF VIAL 100 MCG/2 ML VIAL IV ONE (10:45)
--- NOTE | 2018-11-13 11:13 | RAD ---
Procedure: Ultrasound and fluoroscopically guided placement of right internal jugular power port.. 11/13/2018 11:10 AM Clinical Indication: LYMPHOMA Sedation: Conscious sedation was administered for 30 minutes. The patient was monitored by a qualified independent observer throughout the time of sedation. Please refer to the medical record for exact doses of medications utilized to achieve moderate sedation. Fluoroscopy time: 0.6 MINS Dose area product:2 Gycm2 Consent: The procedure was explained in its entirety to the patient or the patients designated client relations representative by a member of the treatment team, including a discussion of the risks, benefits and commonly accepted alternatives to the procedure, as well as the expected consequences of no therapy whatsoever. Discussion of the risks included, but was not limited to, those that are most frequent and those that are rare but possibly severe or life-threatening, as well as the possibility of unforeseen complications. Technique and Findings: All elements of maximal sterile barrier technique including the use of a cap, mask, sterile gown, sterile gloves, large sterile sheet, appropriate hand hygiene, and 2% chlorhexidine for cutaneous antisepsis (or acceptable alternative antiseptic per current guidelines) were followed for this procedure. Following informed consent, and a timeout procedure, the patient was prepped and draped in the usual sterile fashion. Ultrasound interrogation of the right neck revealed patency and compressibility of the right internal jugular vein. A 21-gauge micropuncture was then used to gain access to this vein under ultrasound guidance. A hard copy ultrasound image was recorded. The needle was exchanged over a wire for a sheath. A 1 inch incision was made several centimeters inferior to the venotomy site. A catheter was tunneled from this site dermatotomy site in the neck. Catheter was advanced through peel-away sheath such that its tip was in the proximal right atrium with the patient supine. The catheter was trimmed to length and connected to the port reservoir. The port was found to flush and aspirate normally. The wound was closed in layers using 4-0 Vicryl suture. Sterile dressings were applied. Impression: Successful ultrasound and fluoroscopically guided placement of a right internal jugular PowerPort
--- NOTE | 2018-11-13 12:35 | NUR ---
Discharge Note: DEVAN LIU Discharge instructions and discharge home medications reviewed with Patient and a copy given. All questions have been answered and understanding verbalized. The following instructions and handouts were given: education was given to patient regarding moderate sedation and implanted port instructions. Pt was also instructed to continue home medications as directed. Pt verbalized understanding. Discontinued lines and drains: peripheral iv was discontinued with no complications. Catheter tip was intact. Patient discharged to home with self care via wheelchair. Pt was accompanied by spouse.
[2018-11-13 13:15] LABS: % ATYL 5 % (0-0); % BANDS 1 % (0-9); % BASOS 1 % (0-3); % LYMPHS 41 % (24-48); % MONOS 10 % (0-10); % SEGS 42 % (35-66); PLT ESTIMATE DECREASED (ADEQUATE)
== END 2018-11-13 12:15 | disposition home or self-care (01) ==
LOC: INTRAD 08:22
PROVIDERS: ATTEND Internal Medicine Hematology & Oncology
DX: C85.90 Non-Hodgkin lymphoma, unspecified, unspecified site (principal); Z88.0 Allergy status to penicillin; Z88.2 Allergy status to sulfonamides; Z88.5 Allergy status to narcotic agent; Z88.8 Allergy status to other drugs, medicaments and biological substances; Z79.01 Long term (current) use of anticoagulants
CPT/HCPCS: 36415; 36561; 76937; 77001; 85025; 85610; 85730; 99152; 99153; C1788; C1892; J0696; J2250; J3010; J3490; 85007; C1751

== ENCOUNTER 2018-11-25 11:47 | Inpatient (IN) | payer BC ==
[~2018-11-25] VITALS: Ht 175.3 cm; Wt 112.0 kg
[2018-11-25] MEDS ORDERED: ACETAMINOPHEN 500 MG TABLET PO ONE (13:00)
[2018-11-25] MEDS ORDERED: VANCOMYCIN PER PHARMACY MC ONE (13:00)
[2018-11-25] MEDS ORDERED: VANCOMYCIN 2 GM in IV NORMAL SALINE 500ML BAG 500 ML IV ONE (13:15)
[2018-11-25] MEDS: IV NORMAL SALINE 1000ML BAG 1,000 ML IV SCH ×4 (13:19→21:26)
--- NOTE | 2018-11-25 13:30 | RAD ---
Single view chest dated 11/25/2018: Comparison made to 06/23/2018. Clinical Indication: Fever. Recent institution of chemotherapy.. Findings: Single upright portable exam of the chest was performed. Heart size and mediastinal contours are within normal limits given technique. The lungs are clear without evidence of focal consolidation. Vascular interstitium is within normal limits. Right-sided port with tip projected to the level the cavoatrial junction. Impression:: No acute radiographic abnormality. Electronically signed by: Kalen Caraballo MD (11/25/2018 1:27 PM) [facility]
[2018-11-25 13:38] LABS: PROTHROMBIN TIME PATIENT 13.3 SEC (11.7-14.0)
[2018-11-25 13:57] LABS: BASO % 1 % (0-3); EOS % 2 % (0-3); HEMATOCRIT 35.5 % (36.0-47.0); HEMOGLOBIN 11.7 g/dL (12.0-15.5); LYMPH % 0 % (24-48); MEAN CORPUSCULAR HEMOGLOBIN 27 pg (25-35); MEAN CORPUSCULAR HGB CONC 33 g/dL (31-37); MEAN CORPUSCULAR VOLUME 82 fL (79-100); MONO # 0.2 x10^3/uL (0.0-1.1); MONO % 8 % (0-9); NEUT # 1.9 x10^3uL (1.8-7.7); NEUT % 89 % (31-73); PLATELET COUNT 93 x10^3/uL (140-400); RED BLOOD COUNT 4.35 x10^6/uL (3.50-5.40); RED CELL DISTRIBUTION WIDTH 14.5 % (11.5-14.5); WHITE BLOOD COUNT 2.2 x10^3/uL (4.0-11.0)
[2018-11-25 14:08] LABS: CALCIUM 8.5 mg/dL (8.5-10.1); CREATININE 0.9 mg/dL (0.6-1.0); GFR 64.3; POTASSIUM 3.6 mmol/L (3.5-5.1)
[2018-11-25 14:20] LABS: % BANDS 3 % (0-9); % EOS 1 % (0-5); % MONOS 7 % (0-10); % SEGS 89 % (35-66)
[2018-11-25 14:21] LABS: ALBUMIN 3.4 g/dL (3.4-5.0); ALBUMIN/GLOBULIN RATIO 1.3 (1.0-1.7); TOTAL BILIRUBIN 1.1 mg/dL (0.2-1.0); TOTAL PROTEIN 6.1 g/dL (6.4-8.2)
[2018-11-25 14:23] LABS: PLT ESTIMATE DECREASED (ADEQUATE)
[2018-11-25 14:33] LABS: CREATINE KINASE 33 U/L (26-192)
--- NOTE | 2018-11-25 14:52 | EKG ---
[facility] [address] [place] [address] Test Date: 2018-11-25 Test Time: 12:58:22 Pat Name: DEVAN LIU Department: Room: Gender: F [employer] T[employer]: : 1960 Requested By: ABRAHAM GARCIA Order Number: [id number] Reading MD: Balaji Sue MD Measurements Intervals [place] Rate: 112 P: -1 ID: [id number] QRS: -3 QRSD: 78 T: 39 QT: 326 QTc: 446 Interpretive Statements NON-SPECIFIC ST/T CHANGESSINUS TACHYCARDIA Electronically Signed On 12-04-2018 9:29:01 CDT by Balaji Sue MD
--- NOTE | 2018-11-25 15:43 | PHYS DOC ---
Past Medical History Past Medical History: A-Fib, Glaucoma, Hypothyroid Additional Past Medical Histor: A-FIB W RVR Past Surgical History: Hysterectomy, Other Additional Past Surgical Histo: SINUS SURGERY ,R FOOT, L WRIST, port insertion , bone marrow biopsy Alcohol Use: None Drug Use: None Adult General Chief Complaint Chief Complaint: FEVER HPI HPI Patient is a 58 year old female with history of A. fib, glaucoma, hypothyroidism, presented diagnosed with lymphoma and started on chemotherapy last week who presents today with a fever that began last night. Patient denies any coughing or congestion. Denies any abdominal pain nausea vomiting. Review of Systems Review of Systems Constitutional: Reports fever Eyes: Denies change in visual acuity, redness, or eye pain [] HENT: Denies nasal congestion or sore throat [] Respiratory: Denies cough or shortness of breath [] Cardiovascular: No additional information not addressed in HPI [] GI: Denies abdominal pain, nausea, vomiting, bloody stools or diarrhea [] : Denies dysuria or hematuria [] Musculoskeletal: Denies back pain or joint pain [] Integument: Denies rash or skin lesions [] Neurologic: Denies headache, focal weakness or sensory changes [] All other systems were reviewed and found to be within normal limits, except as documented in this note. Current Medications Current Medications Current Medications Medications (Trade) Dose Ordered Sig/Angeline Start Time Stop Time Status Last Admin Dose Admin Acetaminophen (Tylenol) 1,000 mg 1X ONCE 11/25/18 13:00 11/25/18 13:06 DC 11/25/18 13:20 1,000 MG Levofloxacin/ Dextrose 150 ml @ 100 mls/hr 1X ONCE 11/25/18 13:00 11/25/18 14:29 DC 11/25/18 14:47 100 MLS/HR Sodium Chloride 1,000 ml @ 166.667 mls/hr Q6H 11/25/18 13:00 11/26/18 09:08 11/25/18 14:47 166.667 MLS/HR Vancomycin HCl (Vanco Per Pharmacy) 1 each 1X ONCE 11/25/18 13:00 11/25/18 13:08 DC Vancomycin HCl 2 gm/Sodium Chloride 500 ml @ 250 mls/hr 1X ONCE 11/25/18 13:15 11/25/18 15:14 DC Allergies Allergies Allergies Coded Allergies Type Severity Reaction Last Updated Verified Penicillins Allergy Severe DIFFICULTY BREATHING 05/07/18 Yes Sulfa (Sulfonamide Antibiotics) Allergy Intermediate 05/07/18 Yes oxycodone Allergy Intermediate Itching 05/07/18 Yes prednisone Allergy Intermediate 05/07/18 Yes Physical Exam Physical Exam Constitutional: Well developed, well nourished, no acute distress, non-toxic appearance. [] HENT: Normocephalic, atraumatic, bilateral external ears normal, oropharynx moist, no oral exudates, nose normal. [] Eyes: PERRLA, EOMI, conjunctiva normal, no discharge. [] Neck: Normal range of motion, no tenderness, supple, no stridor. [] Cardiovascular:Heart rate regular rhythm, no murmur [] Lungs & Thorax: Bilateral breath sounds clear to auscultation [] Abdomen: Bowel sounds normal, soft, no tenderness, no masses, no pulsatile masses. [] Skin: Warm, dry, no erythema, no rash. [] Back: No tenderness, no CVA tenderness. [] Extremities: No tenderness, no cyanosis, no clubbing, ROM intact, no edema. [] Neurologic: Alert and oriented X 3, normal motor function, normal sensory function, no focal deficits noted. [] Psychologic: Affect normal, judgement normal, mood normal. [] Current Patient Data Vital Signs Vital Signs Date Time Temp Pulse Resp B/P (MAP) Pulse Ox O2 Delivery O2 Flow Rate FiO2 11/25/18 14:12 102 169/72 (104) 97 Room Air 11/25/18 13:42 18 11/25/18 12:32 103.1 103.1 Lab Values Laboratory Tests Test 11/25/18 13:05 11/25/18 13:25 Prothrombin Time 13.3 SEC (11.7-14.0) Prothrombin Time INR 1.0 (0.8-1.1) PTT 26 SEC (24-38) White Blood Count 2.2 x10^3/uL (4.0-11.0) L Red Blood Count 4.35 x10^6/uL (3.50-5.40) Hemoglobin 11.7 g/dL (12.0-15.5) L Hematocrit 35.5 % (36.0-47.0) L Mean Corpuscular Volume 82 fL (79-100) Mean Corpuscular Hemoglobin 27 pg (25-35) Mean Corpuscular Hemoglobin Concent 33 g/dL (31-37) Red Cell Distribution Width 14.5 % (11.5-14.5) Platelet Count 93 x10^3/uL (140-400) L Neutrophils (%) (Auto) 89 % (31-73) H Lymphocytes (%) (Auto) 0 % (24-48) L Monocytes (%) (Auto) 8 % (0-9) Eosinophils (%) (Auto) 2 % (0-3) Basophils (%) (Auto) 1 % (0-3) Neutrophils # (Auto) 1.9 x10^3uL (1.8-7.7) Lymphocytes # (Auto) 0.0 x10^3/uL (1.0-4.8) L Monocytes # (Auto) 0.2 x10^3/uL (0.0-1.1) Eosinophils # (Auto) 0.0 x10^3/uL (0.0-0.7) Basophils # (Auto) 0.0 x10^3/uL (0.0-0.2) Segmented Neutrophils % 89 % (35-66) H Band Neutrophils % 3 % (0-9) Monocytes % 7 % (0-10) Eosinophils % 1 % (0-5) Platelet Estimate Decreased (ADEQUATE) Sodium Level 141 mmol/L (136-145) Potassium Level 3.6 mmol/L (3.5-5.1) Chloride Level 100 mmol/L (98-107) Carbon Dioxide Level 29 mmol/L (21-32) Anion Gap 12 (6-14) Blood Urea Nitrogen 10 mg/dL (7-20) Creatinine 0.9 mg/dL (0.6-1.0) Estimated GFR (Cockcroft-Gault) 64.3 BUN/Creatinine Ratio 11 (6-20) Glucose Level 119 mg/dL (70-99) H Lactic Acid Level 3.3 mmol/L (0.4-2.0) H Calcium Level 8.5 mg/dL (8.5-10.1) Total Bilirubin 1.1 mg/dL (0.2-1.0) H Aspartate Amino Transferase (AST) 28 U/L (15-37) Alanine Aminotransferase (ALT) 47 U/L (14-59) Alkaline Phosphatase 132 U/L (46-116) H Creatine Kinase 33 U/L (26-192) Creatine Kinase MB (Mass) < 0.5 ng/mL (0.0-3.6) Creatine Kinase MB Relative Index % (0-4) Total Protein 6.1 g/dL (6.4-8.2) L Albumin 3.4 g/dL (3.4-5.0) Albumin/Globulin Ratio 1.3 (1.0-1.7) Procalcitonin 0.25 ng/mL (0.00-0.10) H Laboratory Tests 11/25/18 13:25 Laboratory Tests 11/25/18 13:25 EKG EKG 12:[address] Mcnair sinus tachycardia at rate 112 no STEMI Radiology/Procedures Radiology/Procedures []PROCEDURE: PORTABLE CHEST 1V Single view chest dated 11/25/2018: Comparison made to 06/23/2018. Clinical Indication: Fever. Recent institution of chemotherapy.. Findings: Single upright portable exam of the chest was performed. Heart size and mediastinal contours are within normal limits given technique. The lungs are clear without evidence of focal consolidation. Vascular interstitium is within normal limits. Right-sided port with tip projected to the level the cavoatrial junction. Impression:: No acute radiographic abnormality. Electronically signed by: Kalen Caraballo MD (11/25/2018 1:27 PM) [facility] DICTATED and SIGNED BY: KALEN CARABALLO MD DATE: 11/25/18 8131 Course & Med Decision Making Course & Med Decision Making Pertinent Labs and Imaging studies reviewed. (See chart for details) This is a 58-year-old female patient presenting to the ED today complaining of fever. Patient has lymphoma, she was started on chemotherapy last week. Fever began last night. On arrival to the ED patient had a temperature of 103.1, heart rate 1-21, blood pressure 169/74. Patient was started on the sepsis protocol including IV fluids and antibiotics. CBC with a WBC of 2.2, platelet count 93. CMP with no acute findings, lactic 3.3 , repeat lactic ordered on arrival to the ED. Chest x-ray interpreted by radiologist as negative for any acute findings. Consulted with Dr. Whitman who accepted patient for admission. We will continue IV fluids. Dragon Disclaimer Dragon Disclaimer This electronic medical record was generated, in whole or in part, using a voice recognition dictation system. Departure Departure Impression: Primary Impression: Fever Additional Impression: Sepsis Disposition: ADMITTED INPATIENT Condition: STABLE Referrals: ISRAEL QUIÑONES MD (PCP) Problem Qualifiers Primary Impression: Fever Fever type: unspecified Qualified Codes: R50.9 - Fever, unspecified Additional Impression: Sepsis Sepsis type: sepsis due to unspecified organism Qualified Codes: A41.9 - Sepsis, unspecified organism ABRAHAM GARCIA [employer] Nov 25, 2018 15:43
[2018-11-25] MEDS ORDERED: ONDANSETRON PF 4 MG/2 ML VIAL. IV PRN (15:45)
[2018-11-25] MEDS ORDERED: IV NORMAL SALINE 1000ML BAG 1,000 ML IV ONE (15:45)
[2018-11-25] MEDS ORDERED: fentaNYL PF VIAL 100 MCG/2 ML VIAL IV PRN (15:45)
[2018-11-25 15:49] LABS: BILIRUBIN,URINE NEGATIVE (NEG); CLARITY,URINE CLEAR; COLOR,URINE YELLOW; NITRITE,URINE NEGATIVE (NEG); PH,URINE 6.5; PROTEIN,URINE NEGATIVE (NEG-TRACE); UROBILINOGEN,URINE 0.2 mg/dL (0.2 mg/dL)
[2018-11-25 16:14] VITALS: BP 148/69
[2018-11-25 16:25] LABS: BACTERIA,URINE MODERATE /HPF (0-FEW); RBC,URINE 0 /HPF (0-2); SQUAMOUS EPITHELIAL CELL,UR MANY /LPF
[2018-11-25] MEDS: ACETAMINOPHEN 325 MG TABLET. PO PRN ×2 (17:02→21:26)
--- NOTE | 2018-11-25 17:50 | NUR ---
Pt admitted from ED via wheelchair. A&O X4, elevated temp of 102.1 HR 111, denies pain, c/o fatigue and chills. Completed admission assessment. Oriented to room and unit. at bedside. Call light within reach. Will continue to monitor.
[2018-11-25 19:45] VITALS: BP 128/56
--- NOTE | 2018-11-25 20:03 | PDOC1 ---
History and Physical Date of Admission Date of Admission DATE: 11/25/18 TIME: 20:03 Identification/Chief Complaint Chief Complaint SEEN IN ER presented diagnosed with lymphoma and started on chemotherapy last week who presents with a fever 100.4 F, that began last night. Past Medical History Past Medical History Past Medical History Past Medical History: A-Fib, Glaucoma, Hypothyroid Additional Past Medical Histor: A-FIB W RVR Past Surgical History: Hysterectomy, Other Additional Past Surgical Histo: SINUS SURGERY ,R FOOT, L WRIST, port insertion , bone marrow biopsy Alcohol Use: None Drug Use: None FAMILY HX OBESITY Cardiovascular: AFIB, HTN Heme/Onc: Cancer, Other (LYMPHOMA) Endocrine: Hypothyroidism Past Surgical History Past Surgical History: Cholecystectomy, No pertinent history Family History Family History: Hypertension Social History Smoke: No ALCOHOL: none Drugs: None Current Problem List Problem List Problems Medical Problems: (1) Fever Status: Acute (2) Sepsis Status: Acute Current Medications Current Medications Current Medications Vancomycin HCl (Vanco Per Pharmacy) 1 each 1X ONCE MC Last administered on 09/03at 13:00; Start 11/25/18 at 13:00; Stop 11/25/18 at 13:08; Status DC Levofloxacin/ Dextrose 150 ml @ 100 mls/hr 1X ONCE IV Last administered on 09/03at 14:47; Start 11/25/18 at 13:00; Stop 11/25/18 at 14:29; Status DC Sodium Chloride 1,000 ml @ 166.667 mls/hr Q6H IV Last administered on at 14:47; Start 11/25/18 at 13:00; Stop 11/26/18 at 09:08 Acetaminophen (Tylenol) 1,000 mg 1X ONCE PO Last administered on 11/25/18at 13: 20; Start 11/25/18 at 13:00; Stop 11/25/18 at 13:06; Status DC Vancomycin HCl 2 gm/Sodium Chloride 500 ml @ 250 mls/hr 1X ONCE IV Last administered on 11/25/18at 16:30; Start 11/25/18 at 13:15; Stop 11/25/18 at 15:14 ; Status DC Ondansetron HCl (Zofran) 4 mg PRN Q8HRS PRN IV NAUSEA/VOMITING Last administered on 11/25/18at 17:02; Start 11/25/18 at 15:45; Stop 11/26/18 at 15:44 Fentanyl Citrate (Fentanyl 2ml Vial) 50 mcg PRN Q1HR PRN IV PAIN; Start at 15:45; Stop 11/26/18 at 15:44 Acetaminophen (Tylenol) 650 mg PRN Q4HRS PRN PO FEVER Last administered on 11/25at 17:02; Start 11/25/18 at 15:45; Stop 11/26/18 at 15:44 Sodium Chloride 1,000 ml @ 125 mls/hr 1X ONCE IV ; Start 11/25/18 at 15:45; Stop 11/25/18 at 23:44 Active Scripts Active Reported Biotin 10,000 Mcg Capsule 10,000 Mcg PO DAILY Multivitamins (Multivitamin) 1 Each Tablet 1 Each PO DAILY Metoprolol Tartrate 25 Mg Tablet 25 Mg PO DAILY Cymbalta (Duloxetine Hcl) 30 Mg Capsule.dr 1 Cap PO DAILY Aspirin 81 Mg Tab.chew 1 Tab PO DAILY Synthroid (Levothyroxine Sodium) 88 Mcg Tablet 100 Mcg PO DAILY Climara (Estradiol) 1 Each Patch.tdwk Latanoprost 2.5 Ml Drops 1 Drop EACHEYE QHS Allergies Allergies: Coded Allergies: Penicillins (Verified Allergy, Severe, DIFFICULTY BREATHING, 05/07/18) Sulfa (Sulfonamide Antibiotics) (Verified Allergy, Intermediate, 05/07/18) oxycodone (Verified Allergy, Intermediate, Itching, 05/07/18) prednisone (Verified Allergy, Intermediate, 05/07/18) HARD TO BREATHE ROS Review of System Review of Systems Review of Systems Constitutional: Reports fever Eyes: Denies change in visual acuity, redness, or eye pain [] HENT: Denies nasal congestion or sore throat [] Respiratory: Denies cough or shortness of breath [] Cardiovascular: No additional information not addressed in HPI [] GI: Denies abdominal pain, nausea, vomiting, bloody stools or diarrhea [] : Denies dysuria or hematuria [] Musculoskeletal: Denies back pain or joint pain [] Integument: Denies rash or skin lesions [] Neurologic: Denies headache, focal weakness or sensory changes [] 14 PT systems were reviewed and found to be within normal limits, except as documented General: YES: Chills, Fatigue PSYCHOLOGICAL ROS: No: Anxiety, Behavioral Disorder, Concentration difficultie , Decreased libido, Depression, Disorientation, Hallucinations, Hostility, Irritablity, Memory difficulties, Mood Swings, Obsessive thoughts, Physical abuse, Sexual abuse, Sleep disturbances, Suicidal ideation, Other Eyes: No Blurry vision, No Decreased vision, No Double vision, No Dry eyes, No Excessive tearing, No Eye Pain, No Itchy Eyes, No Loss of vision, No Photophobia , No Scotomata, No Uses contacts, No Uses glasses, No Other ENDOCRINE: No: Breast Changes, Galactorrhea, Hair Pattern Changes, Hot Flashes , Malaise/lethargy, Mood Swings, Palpitations, Polydipsia/polyuria, Skin Changes , Temperature Intolerance, Unexpected Weight Changes, Other Respiratory: No: Cough, Hemoptysis, Orthopnea, Pleuritic Pain, Shortness of breath, SOB with excertion, Sputum Changes, Stridor, Tachypnea, Wheezing, Other Skin: No Dry Skin, No Eczema, No Hair Changes, No Lumps, No Mole Changes, No Mottling, No Nail Changes, No Pruritus, No Rash, No Skin Lesion Changes, No Other, No Acne Physical Exam Physical Exam Physical Exam Physical Exam Constitutional: Well developed, well nourished, no acute distress, non-toxic appearance. [] HENT: Normocephalic, atraumatic, bilateral external ears normal, oropharynx moist, no oral exudates, nose normal. [] Eyes: PERRLA, EOMI, conjunctiva normal, no discharge. [] Neck: Normal range of motion, no tenderness, supple, no stridor. [] Cardiovascular:Heart rate regular rhythm, no murmur [] Lungs & Thorax: Bilateral breath sounds clear to auscultation [] Abdomen: Bowel sounds normal, soft, no tenderness, no masses, no pulsatile masses. [] Skin: Warm, dry, no erythema, no rash. [] Back: No tenderness, no CVA tenderness. [] Extremities: No tenderness, no cyanosis, no clubbing, ROM intact, no edema. [] Neurologic: Alert and oriented X 3, normal motor function, normal sensory function, no focal deficits noted. [] Psychologic: Affect normal, judgement normal, mood normal. [] General: Alert, Oriented X3, Cooperative, No acute distress HEENT: EOMI, Mucous membr. moist/pink Lungs: Clear to auscultation, Normal air movement Breasts: Not examined Abdomen: Normal bowel sounds, Soft Rectal Exam: not examined Neuro: Normal speech, Cranial nerves 3-12 NL Psych/Mental Status: Mental status NL, Mood NL Vitals Vitals Vital Signs Date Time Temp Pulse Resp B/P (MAP) Pulse Ox O2 Delivery O2 Flow Rate FiO2 11/25/18 19:45 101.7 125 22 128/56 (80) 95 Room Air 101.7 Labs Labs . 01 Clinical history: . Splenomegaly . 02 Diagnosis: Peripheral smear: - Moderate leukopenia with mild absolute neutropenia and lymphopenia. - Thrombocytopenia, mild. . 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 - Absent iron stores. . (JACKLYNM:mike; 10/24/2018) MBR/10/27/2018 . 02 Comment: The peripheral smear shows moderate leukopenia with mild absolute neutropenia and lymphopenia, and mild thrombocytopenia. 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 The lymphoproliferative disorder involves no more than 5-10% of nucleated marrow cells. 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 Correlate clinically. (ELLIE:mike; 10/24/2018) . Laboratory Tests Test 11/25/18 13:05 11/25/18 13:25 11/25/18 15:40 11/25/18 18:00 Prothrombin Time 13.3 SEC (11.7-14.0) Prothromb Time International Ratio 1.0 (0.8-1.1) Activated Partial Thromboplast Time 26 SEC (24-38) White Blood Count 2.2 x10^3/uL (4.0-11.0) Red Blood Count 4.35 x10^6/uL (3.50-5.40) Hemoglobin 11.7 g/dL (12.0-15.5) Hematocrit 35.5 % (36.0-47.0) Mean Corpuscular Volume 82 fL (79-100) Mean Corpuscular Hemoglobin 27 pg (25-35) Mean Corpuscular Hemoglobin Concent 33 g/dL (31-37) Red Cell Distribution Width 14.5 % (11.5-14.5) Platelet Count 93 x10^3/uL (140-400) Neutrophils (%) (Auto) 89 % (31-73) Lymphocytes (%) (Auto) 0 % (24-48) Monocytes (%) (Auto) 8 % (0-9) Eosinophils (%) (Auto) 2 % (0-3) Basophils (%) (Auto) 1 % (0-3) Neutrophils # (Auto) 1.9 x10^3uL (1.8-7.7) Lymphocytes # (Auto) 0.0 x10^3/uL (1.0-4.8) Monocytes # (Auto) 0.2 x10^3/uL (0.0-1.1) Eosinophils # (Auto) 0.0 x10^3/uL (0.0-0.7) Basophils # (Auto) 0.0 x10^3/uL (0.0-0.2) Segmented Neutrophils % 89 % (35-66) Band Neutrophils % 3 % (0-9) Monocytes % 7 % (0-10) Eosinophils % 1 % (0-5) Platelet Estimate Decreased (ADEQUATE) Sodium Level 141 mmol/L (136-145) Potassium Level 3.6 mmol/L (3.5-5.1) Chloride Level 100 mmol/L (98-107) Carbon Dioxide Level 29 mmol/L (21-32) Anion Gap 12 (6-14) Blood Urea Nitrogen 10 mg/dL (7-20) Creatinine 0.9 mg/dL (0.6-1.0) Estimated GFR (Cockcroft-Gault) 64.3 BUN/Creatinine Ratio 11 (6-20) Glucose Level 119 mg/dL (70-99) Lactic Acid Level 3.3 mmol/L (0.4-2.0) 1.3 mmol/L (0.4-2.0) Calcium Level 8.5 mg/dL (8.5-10.1) Total Bilirubin 1.1 mg/dL (0.2-1.0) Aspartate Amino Transf (AST/SGOT) 28 U/L (15-37) Alanine Aminotransferase (ALT/SGPT) 47 U/L (14-59) Alkaline Phosphatase 132 U/L (46-116) Creatine Kinase 33 U/L (26-192) Creatine Kinase MB (Mass) < 0.5 ng/mL (0.0-3.6) Creatine Kinase MB Relative Index % (0-4) Total Protein 6.1 g/dL (6.4-8.2) Albumin 3.4 g/dL (3.4-5.0) Albumin/Globulin Ratio 1.3 (1.0-1.7) Procalcitonin 0.25 ng/mL (0.00-0.10) Urine Collection Type Unknown Urine Color Yellow Urine Clarity Clear Urine pH 6.5 Urine Specific [place] 1.025 Urine Protein Negative mg/dL (NEG-TRACE) Urine Glucose (UA) Negative mg/dL (NEG) Urine Ketones (Stick) Negative mg/dL (NEG) Urine Blood Negative (NEG) Urine Nitrite Negative (NEG) Urine Bilirubin Negative (NEG) Urine Urobilinogen Dipstick 0.2 mg/dL (0.2 mg/dL) Urine Leukocyte Esterase Negative (NEG) Urine RBC 0 /HPF (0-2) Urine WBC 1-4 /HPF (0-4) Urine Squamous Epithelial Cells Many /LPF Urine Bacteria Moderate /HPF (0-FEW) Urine Mucus Marked /LPF Laboratory Tests Test 11/25/18 13:05 11/25/18 13:25 11/25/18 15:40 11/25/18 18:00 Prothrombin Time 13.3 SEC (11.7-14.0) Prothromb Time International Ratio 1.0 (0.8-1.1) Activated Partial Thromboplast Time 26 SEC (24-38) White Blood Count 2.2 x10^3/uL (4.0-11.0) Red Blood Count 4.35 x10^6/uL (3.50-5.40) Hemoglobin 11.7 g/dL (12.0-15.5) Hematocrit 35.5 % (36.0-47.0) Mean Corpuscular Volume 82 fL (79-100) Mean Corpuscular Hemoglobin 27 pg (25-35) Mean Corpuscular Hemoglobin Concent 33 g/dL (31-37) Red Cell Distribution Width 14.5 % (11.5-14.5) Platelet Count 93 x10^3/uL (140-400) Neutrophils (%) (Auto) 89 % (31-73) Lymphocytes (%) (Auto) 0 % (24-48) Monocytes (%) (Auto) 8 % (0-9) Eosinophils (%) (Auto) 2 % (0-3) Basophils (%) (Auto) 1 % (0-3) Neutrophils # (Auto) 1.9 x10^3uL (1.8-7.7) Lymphocytes # (Auto) 0.0 x10^3/uL (1.0-4.8) Monocytes # (Auto) 0.2 x10^3/uL (0.0-1.1) Eosinophils # (Auto) 0.0 x10^3/uL (0.0-0.7) Basophils # (Auto) 0.0 x10^3/uL (0.0-0.2) Segmented Neutrophils % 89 % (35-66) Band Neutrophils % 3 % (0-9) Monocytes % 7 % (0-10) Eosinophils % 1 % (0-5) Platelet Estimate Decreased (ADEQUATE) Sodium Level 141 mmol/L (136-145) Potassium Level 3.6 mmol/L (3.5-5.1) Chloride Level 100 mmol/L (98-107) Carbon Dioxide Level 29 mmol/L (21-32) Anion Gap 12 (6-14) Blood Urea Nitrogen 10 mg/dL (7-20) Creatinine 0.9 mg/dL (0.6-1.0) Estimated GFR (Cockcroft-Gault) 64.3 BUN/Creatinine Ratio 11 (6-20) Glucose Level 119 mg/dL (70-99) Lactic Acid Level 3.3 mmol/L (0.4-2.0) 1.3 mmol/L (0.4-2.0) Calcium Level 8.5 mg/dL (8.5-10.1) Total Bilirubin 1.1 mg/dL (0.2-1.0) Aspartate Amino Transf (AST/SGOT) 28 U/L (15-37) Alanine Aminotransferase (ALT/SGPT) 47 U/L (14-59) Alkaline Phosphatase 132 U/L (46-116) Creatine Kinase 33 U/L (26-192) Creatine Kinase MB (Mass) < 0.5 ng/mL (0.0-3.6) Creatine Kinase MB Relative Index % (0-4) Total Protein 6.1 g/dL (6.4-8.2) Albumin 3.4 g/dL (3.4-5.0) Albumin/Globulin Ratio 1.3 (1.0-1.7) Procalcitonin 0.25 ng/mL (0.00-0.10) Urine Collection Type Unknown Urine Color Yellow Urine Clarity Clear Urine pH 6.5 Urine Specific [place] 1.025 Urine Protein Negative mg/dL (NEG-TRACE) Urine Glucose (UA) Negative mg/dL (NEG) Urine Ketones (Stick) Negative mg/dL (NEG) Urine Blood Negative (NEG) Urine Nitrite Negative (NEG) Urine Bilirubin Negative (NEG) Urine Urobilinogen Dipstick 0.2 mg/dL (0.2 mg/dL) Urine Leukocyte Esterase Negative (NEG) Urine RBC 0 /HPF (0-2) Urine WBC 1-4 /HPF (0-4) Urine Squamous Epithelial Cells Many /LPF Urine Bacteria Moderate /HPF (0-FEW) Urine Mucus Marked /LPF VTE Prophylaxis Ordered VTE Prophylaxis Devices: No VTE Pharmacological Prophylaxi: Yes Assessment/Plan Assessment/Plan Impression: Fever R/O BACTEREMIA: Sepsis HX LYMPHOMA ON CHEMOTHERAPY RECENT BONE MARROW=== Lymphoproliferative disorder comprised of small lymphocytes having immunophenotypic features indicative of a CD5, CD10 negative B- cell lymphoproliferative disorder. The lymphoproliferative disorder involves no more than 5-10% of nucleated marrow cells. 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 OBESITY PLAN BLOOD AND URINE CULTURES ID CONSULT ONCOLOGY CONSULT EMPERIC IV ANTIBIOTICS DVT PROPHYLAXIS LACTIC ACID TELE ADMIT 2 MN HIGH RISK OF SEPSIS/BACTEREMIA PER MY CHART REVIEW/ COMPLICATIONS WITHOUT EMPERIC IV ANTIBIOTICS IV VANC, LEVAQUIN NEUTROPENIC PRECAUTIONS BRIAN DARLING MD Nov 25, 2018 20:03
[2018-11-25] MEDS ORDERED: IV NORMAL SALINE 500ML BAG 500 ML IV PRN (20:30)
[2018-11-25] MEDS: ENOXAPARIN 40 MG/0.4 ML SYRINGE. SQ SCH (21:00)
[2018-11-25] MEDS: LATANOPROST 0.005% OPHTH SOLUTION 2.5ML BOTTLE. OU SCH (21:25)
[2018-11-25 23:12] VITALS: BP 126/66
[2018-11-25 23:49] LABS: INFLUENZA A PATIENT NEGATIVE (NEGATIVE); INFLUENZA B PATIENT NEGATIVE (NEGATIVE)
[2018-11-26] MEDS: IV NORMAL SALINE 1000ML BAG 1,000 ML IV SCH ×2 (01:00→09:13)
[2018-11-26] MEDS: ACETAMINOPHEN 325 MG TABLET. PO PRN ×3 (03:00→18:10)
[2018-11-26 03:11] VITALS: BP 134/67
[2018-11-26 04:32] LABS: BASO % 1 % (0-3); EOS % 2 % (0-3); HEMATOCRIT 32.5 % (36.0-47.0); HEMOGLOBIN 10.7 g/dL (12.0-15.5); LYMPH % 1 % (24-48); MEAN CORPUSCULAR HEMOGLOBIN 27 pg (25-35); MEAN CORPUSCULAR HGB CONC 33 g/dL (31-37); MEAN CORPUSCULAR VOLUME 80 fL (79-100); MONO # 0.2 x10^3/uL (0.0-1.1); MONO % 9 % (0-9); NEUT # 1.6 x10^3uL (1.8-7.7); NEUT % 88 % (31-73); PLATELET COUNT 81 x10^3/uL (140-400); RED BLOOD COUNT 4.04 x10^6/uL (3.50-5.40); RED CELL DISTRIBUTION WIDTH 14.7 % (11.5-14.5)
[2018-11-26 04:42] LABS: WHITE BLOOD COUNT 1.8 x10^3/uL (4.0-11.0)
[2018-11-26 04:47] LABS: CALCIUM 7.7 mg/dL (8.5-10.1); GFR 56.9; POTASSIUM 3.5 mmol/L (3.5-5.1)
[2018-11-26 05:09] LABS: D-DIMER 6.45 ug/mlFEU (0.00-0.50)
[2018-11-26] MEDS: LEVOTHYROXINE 100 MCG TABLET PO SCH (05:50)
[2018-11-26 07:00] VITALS: BP 132/66
[2018-11-26] MEDS ORDERED: NON FORMULARY ITEM (Biotin 10,000 MCG) PO SCH (09:00)
[2018-11-26] MEDS: METOPROLOL TART IMMED RELEASE 25 MG TABLET. PO SCH (09:12)
[2018-11-26] MEDS: MULTIVITAMIN with MINERAL TABLET. PO SCH (09:12)
[2018-11-26] MEDS: DULoxetine HCL 30 MG CAPSULE.DR PO SCH (09:12)
[2018-11-26] MEDS: ASPIRIN CHEWABLE 81 MG TABLET. PO SCH (09:12)
--- NOTE | 2018-11-26 10:17 | PDOC2 ---
CONSULT Date of Consult Date of Consult DATE: 11/26/18 TIME: 10:05 Reason for consultation: Fever with lymphoma on chemotherapy Consult: Hematology oncology, Dr. Jes Ballesteros History of present illness: She is a 58-year-old female who was seen in the clinic yesterday with fever to 101, acute, associated with malaise, new, worsened on chemotherapy, with a slight runny nose and fatigue otherwise no localizing symptoms. Is having slight headache. She was admitted and fever curve sl improved after starting on antibiotics. Influenza was negative, procalcitonin elevated, chest x-ray was negative, she tells me blood cultures and urine culture were drawn in the ER, urinalysis did show some bacteria and white blood cells and neutrophil count was 1600. Past medical history: A. 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 Family history: Obesity Review of systems: Fever, fatigue, malaise, runny nose, headache, otherwise 10 point review of systems negative Physical exam: Vitals reviewed Gen.: Well-nourished and well-developed in no acute distress HEENT: mucous membranes moist, head normocephalic atraumatic Neck: Supple, no lymphadenopathy Lymph nodes: No palpable lymphadenopathy neck or axilla Lungs: Breathing comfortably, no evidence of respiratory distress Heart: Regular rate and rhythm Abdomen: Soft, nontender, nondistended Extremities: No cyanosis, sl BLE edema Skin: No obvious rashes or skin breakdown, port looks fine Neuro: Alert and oriented 3 Psych: Normal mood and affect Lab reviewed: White count 1.8, hemoglobin 10.7, platelets 81, neutrophils 1600 Urinalysis with bacteria and white blood cells Influenza negative Creatinine 1.0 Procalc elevated T bili 1.1 Lactic acid decreased to 1.3 Blood cultures and urine cultures have been ordered Rads reviewed: Chest x-ray negative Case discussed with: Patient, records reviewed in [facility], including labs and radiology, please see note for summary details. Assessment and Plan: 58-year-old female with marginal zone lymphoma cycle 1 day 10 bendamustine and rituximab admitted for fever up to 103 Fever: Blood cultures and urine cultures have been ordered, chest x-ray negative , port looks okay, getting antibiotics, ID is involved, appreciate multidisciplinary assistance DVT prophylaxis: Lovenox Marginal zone lymphoma: Chemotherapy therapy on hold for the moment, consider G- CSF as needed though not neutropenic at this time Thank you kindly for this consultation and please don't hesitate to call with any further questions. Past Medical History Cardiovascular: AFIB, HTN Heme/Onc: Cancer, Other (LYMPHOMA) Endocrine: Hypothyroidism Past Surgical History Past Surgical History: Cholecystectomy, No pertinent history Family History Family History: Hypertension Social History No ALCOHOL: none Drugs: None Current Problem List Problem List Problems Medical Problems: (1) Fever Status: Acute (2) Sepsis Status: Acute Current Medications Current Medications Current Medications Vancomycin HCl (Vanco Per Pharmacy) 1 each 1X ONCE MC Last administered on 09/03at 13:00; Start 11/25/18 at 13:00; Stop 11/25/18 at 13:08; Status DC Levofloxacin/ Dextrose 150 ml @ 100 mls/hr 1X ONCE IV Last administered on 09/03at 14:47; Start 11/25/18 at 13:00; Stop 11/25/18 at 14:29; Status DC Sodium Chloride 1,000 ml @ 166.667 mls/hr Q6H IV Last administered on at 09:13; Start 11/25/18 at 13:00; Stop 11/26/18 at 09:08; Status DC Acetaminophen (Tylenol) 1,000 mg 1X ONCE PO Last administered on 11/25/18at 13: 20; Start 11/25/18 at 13:00; Stop 11/25/18 at 13:06; Status DC Vancomycin HCl 2 gm/Sodium Chloride 500 ml @ 250 mls/hr 1X ONCE IV Last administered on 11/25/18at 16:30; Start 11/25/18 at 13:15; Stop 11/25/18 at 15:14 ; Status DC Ondansetron HCl (Zofran) 4 mg PRN Q8HRS PRN IV NAUSEA/VOMITING Last administered on 11/25/18at 17:02; Start 11/25/18 at 15:45; Stop 11/26/18 at 15:44 Fentanyl Citrate (Fentanyl 2ml Vial) 50 mcg PRN Q1HR PRN IV PAIN; Start at 15:45; Stop 11/26/18 at 15:44 Acetaminophen (Tylenol) 650 mg PRN Q4HRS PRN PO FEVER Last administered on 11/26 09:13; Start 11/25/18 at 15:45; Stop 11/26/18 at 15:44 Sodium Chloride 1,000 ml @ 125 mls/hr 1X ONCE IV ; Start 11/25/18 at 15:45; Stop 11/25/18 at 23:44; Status DC Sodium Chloride 1,000 ml @ 1,980 mls/hr Q31M IV Last administered on at 20:51; Start 11/25/18 at 20:20; Stop 11/25/18 at 21:20; Status DC Sodium Chloride 500 ml @ 1,000 mls/hr PRN Q30MIN PRN IV SEE COMMENTS; Start at 20:30 Levofloxacin/ Dextrose 100 ml @ 100 mls/hr Q24H IV Last administered on 21:26; Start 11/25/18 at 21:00 Aspirin (Children'S Aspirin) 81 mg DAILY PO Last administered on 11/26/18 09: 12; Start 11/26/18 at 09:00 Duloxetine HCl (Cymbalta) 30 mg DAILY PO Last administered on 11/26/18 09:12; Start 11/26/18 at 09:00 Levothyroxine Sodium (Synthroid) 100 mcg DAILY06 PO Last administered on 05:50; Start 11/26/18 at 06:00 Metoprolol Tartrate (Lopressor) 25 mg DAILY PO Last administered on 11/26/18 09:12; Start 11/26/18 at 09:00 Non-Formulary Medication (Biotin ) 10,000 mcg DAILY PO ; Start 11/26/18 at 09:00 ; Status UNV Latanoprost (Xalatan) 1 drop QHS OU Last administered on 11/25/18 21:25; Start 11/25/18 at 21:00 Multivitamins (Thera M Plus) 1 tab DAILY PO Last administered on 11/26/18 09: 12; Start 11/26/18 at 09:00 Enoxaparin Sodium (Lovenox 40mg Syringe) 40 mg Q24H SQ ; Start 11/25/18 at 21:00 Active Scripts Active Reported Biotin 10,000 Mcg Capsule 10,000 Mcg PO DAILY Multivitamins (Multivitamin) 1 Each Tablet 1 Each PO DAILY Metoprolol Tartrate 25 Mg Tablet 25 Mg PO DAILY Cymbalta (Duloxetine Hcl) 30 Mg Capsule.dr 1 Cap PO DAILY Aspirin 81 Mg Tab.chew 1 Tab PO DAILY Synthroid (Levothyroxine Sodium) 88 Mcg Tablet 100 Mcg PO DAILY Climara (Estradiol) 1 Each Patch.tdwk Latanoprost 2.5 Ml Drops 1 Drop EACHEYE QHS Allergies Allergies: Coded Allergies: Penicillins (Verified Allergy, Severe, DIFFICULTY BREATHING, 05/07/18) Sulfa (Sulfonamide Antibiotics) (Verified Allergy, Intermediate, 05/07/18) oxycodone (Verified Allergy, Intermediate, Itching, 05/07/18) prednisone (Verified Allergy, Intermediate, 05/07/18) HARD TO BREATHE Vitals VITALS Vital Signs Date Time Temp Pulse Resp B/P (MAP) Pulse Ox O2 Delivery O2 Flow Rate FiO2 11/26/18 09:12 109 132/66 11/26/18 07:00 100.8 18 100 Room Air 100.8 Labs Labs Laboratory Tests Test 11/25/18 13:05 11/25/18 13:25 11/25/18 15:40 11/25/18 18:00 Prothrombin Time 13.3 SEC (11.7-14.0) Prothromb Time International Ratio 1.0 (0.8-1.1) Activated Partial Thromboplast Time 26 SEC (24-38) White Blood Count 2.2 x10^3/uL (4.0-11.0) Red Blood Count 4.35 x10^6/uL (3.50-5.40) Hemoglobin 11.7 g/dL (12.0-15.5) Hematocrit 35.5 % (36.0-47.0) Mean Corpuscular Volume 82 fL (79-100) Mean Corpuscular Hemoglobin 27 pg (25-35) Mean Corpuscular Hemoglobin Concent 33 g/dL (31-37) Red Cell Distribution Width 14.5 % (11.5-14.5) Platelet Count 93 x10^3/uL (140-400) Neutrophils (%) (Auto) 89 % (31-73) Lymphocytes (%) (Auto) 0 % (24-48) Monocytes (%) (Auto) 8 % (0-9) Eosinophils (%) (Auto) 2 % (0-3) Basophils (%) (Auto) 1 % (0-3) Neutrophils # (Auto) 1.9 x10^3uL (1.8-7.7) Lymphocytes # (Auto) 0.0 x10^3/uL (1.0-4.8) Monocytes # (Auto) 0.2 x10^3/uL (0.0-1.1) Eosinophils # (Auto) 0.0 x10^3/uL (0.0-0.7) Basophils # (Auto) 0.0 x10^3/uL (0.0-0.2) Segmented Neutrophils % 89 % (35-66) Band Neutrophils % 3 % (0-9) Monocytes % 7 % (0-10) Eosinophils % 1 % (0-5) Platelet Estimate Decreased (ADEQUATE) Sodium Level 141 mmol/L (136-145) Potassium Level 3.6 mmol/L (3.5-5.1) Chloride Level 100 mmol/L (98-107) Carbon Dioxide Level 29 mmol/L (21-32) Anion Gap 12 (6-14) Blood Urea Nitrogen 10 mg/dL (7-20) Creatinine 0.9 mg/dL (0.6-1.0) Estimated GFR (Cockcroft-Gault) 64.3 BUN/Creatinine Ratio 11 (6-20) Glucose Level 119 mg/dL (70-99) Lactic Acid Level 3.3 mmol/L (0.4-2.0) 1.3 mmol/L (0.4-2.0) Calcium Level 8.5 mg/dL (8.5-10.1) Total Bilirubin 1.1 mg/dL (0.2-1.0) Aspartate Amino Transf (AST/SGOT) 28 U/L (15-37) Alanine Aminotransferase (ALT/SGPT) 47 U/L (14-59) Alkaline Phosphatase 132 U/L (46-116) Creatine Kinase 33 U/L (26-192) Creatine Kinase MB (Mass) < 0.5 ng/mL (0.0-3.6) Creatine Kinase MB Relative Index % (0-4) Total Protein 6.1 g/dL (6.4-8.2) Albumin 3.4 g/dL (3.4-5.0) Albumin/Globulin Ratio 1.3 (1.0-1.7) Procalcitonin 0.25 ng/mL (0.00-0.10) Urine Collection Type Unknown Urine Color Yellow Urine Clarity Clear Urine pH 6.5 Urine Specific [place] 1.025 Urine Protein Negative mg/dL (NEG-TRACE) Urine Glucose (UA) Negative mg/dL (NEG) Urine Ketones (Stick) Negative mg/dL (NEG) Urine Blood Negative (NEG) Urine Nitrite Negative (NEG) Urine Bilirubin Negative (NEG) Urine Urobilinogen Dipstick 0.2 mg/dL (0.2 mg/dL) Urine Leukocyte Esterase Negative (NEG) Urine RBC 0 /HPF (0-2) Urine WBC 1-4 /HPF (0-4) Urine Squamous Epithelial Cells Many /LPF Urine Bacteria Moderate /HPF (0-FEW) Urine Mucus Marked /LPF Test 11/25/18 21:30 11/26/18 03:25 Influenza Type A Antigen Negative (NEGATIVE) Influenza Type B Antigen Negative (NEGATIVE) White Blood Count 1.8 x10^3/uL (4.0-11.0) Red Blood Count 4.04 x10^6/uL (3.50-5.40) Hemoglobin 10.7 g/dL (12.0-15.5) Hematocrit 32.5 % (36.0-47.0) Mean Corpuscular Volume 80 fL (79-100) Mean Corpuscular Hemoglobin 27 pg (25-35) Mean Corpuscular Hemoglobin Concent 33 g/dL (31-37) Red Cell Distribution Width 14.7 % (11.5-14.5) Platelet Count 81 x10^3/uL (140-400) Neutrophils (%) (Auto) 88 % (31-73) Lymphocytes (%) (Auto) 1 % (24-48) Monocytes (%) (Auto) 9 % (0-9) Eosinophils (%) (Auto) 2 % (0-3) Basophils (%) (Auto) 1 % (0-3) Neutrophils # (Auto) 1.6 x10^3uL (1.8-7.7) Lymphocytes # (Auto) 0.0 x10^3/uL (1.0-4.8) Monocytes # (Auto) 0.2 x10^3/uL (0.0-1.1) Eosinophils # (Auto) 0.0 x10^3/uL (0.0-0.7) Basophils # (Auto) 0.0 x10^3/uL (0.0-0.2) Fibrinogen 377 mg/dL (200-440) D-Dimer (Nancie) 6.45 ug/mlFEU (0.00-0.50) Sodium Level 138 mmol/L (136-145) Potassium Level 3.5 mmol/L (3.5-5.1) Chloride Level 103 mmol/L (98-107) Carbon Dioxide Level 24 mmol/L (21-32) Anion Gap 11 (6-14) Blood Urea Nitrogen 8 mg/dL (7-20) Creatinine 1.0 mg/dL (0.6-1.0) Estimated GFR (Cockcroft-Gault) 56.9 Glucose Level 126 mg/dL (70-99) Calcium Level 7.7 mg/dL (8.5-10.1) Procalcitonin 0.79 ng/mL (0.00-0.10) Laboratory Tests Test 11/25/18 13:05 11/25/18 13:25 11/25/18 15:40 11/25/18 18:00 Prothrombin Time 13.3 SEC (11.7-14.0) Prothromb Time International Ratio 1.0 (0.8-1.1) Activated Partial Thromboplast Time 26 SEC (24-38) White Blood Count 2.2 x10^3/uL (4.0-11.0) Red Blood Count 4.35 x10^6/uL (3.50-5.40) Hemoglobin 11.7 g/dL (12.0-15.5) Hematocrit 35.5 % (36.0-47.0) Mean Corpuscular Volume 82 fL (79-100) Mean Corpuscular Hemoglobin 27 pg (25-35) Mean Corpuscular Hemoglobin Concent 33 g/dL (31-37) Red Cell Distribution Width 14.5 % (11.5-14.5) Platelet Count 93 x10^3/uL (140-400) Neutrophils (%) (Auto) 89 % (31-73) Lymphocytes (%) (Auto) 0 % (24-48) Monocytes (%) (Auto) 8 % (0-9) Eosinophils (%) (Auto) 2 % (0-3) Basophils (%) (Auto) 1 % (0-3) Neutrophils # (Auto) 1.9 x10^3uL (1.8-7.7) Lymphocytes # (Auto) 0.0 x10^3/uL (1.0-4.8) Monocytes # (Auto) 0.2 x10^3/uL (0.0-1.1) Eosinophils # (Auto) 0.0 x10^3/uL (0.0-0.7) Basophils # (Auto) 0.0 x10^3/uL (0.0-0.2) Segmented Neutrophils % 89 % (35-66) Band Neutrophils % 3 % (0-9) Monocytes % 7 % (0-10) Eosinophils % 1 % (0-5) Platelet Estimate Decreased (ADEQUATE) Sodium Level 141 mmol/L (136-145) Potassium Level 3.6 mmol/L (3.5-5.1) Chloride Level 100 mmol/L (98-107) Carbon Dioxide Level 29 mmol/L (21-32) Anion Gap 12 (6-14) Blood Urea Nitrogen 10 mg/dL (7-20) Creatinine 0.9 mg/dL (0.6-1.0) Estimated GFR (Cockcroft-Gault) 64.3 BUN/Creatinine Ratio 11 (6-20) Glucose Level 119 mg/dL (70-99) Lactic Acid Level 3.3 mmol/L (0.4-2.0) 1.3 mmol/L (0.4-2.0) Calcium Level 8.5 mg/dL (8.5-10.1) Total Bilirubin 1.1 mg/dL (0.2-1.0) Aspartate Amino Transf (AST/SGOT) 28 U/L (15-37) Alanine Aminotransferase (ALT/SGPT) 47 U/L (14-59) Alkaline Phosphatase 132 U/L (46-116) Creatine Kinase 33 U/L (26-192) Creatine Kinase MB (Mass) < 0.5 ng/mL (0.0-3.6) Creatine Kinase MB Relative Index % (0-4) Total Protein 6.1 g/dL (6.4-8.2) Albumin 3.4 g/dL (3.4-5.0) Albumin/Globulin Ratio 1.3 (1.0-1.7) Procalcitonin 0.25 ng/mL (0.00-0.10) Urine Collection Type Unknown Urine Color Yellow Urine Clarity Clear Urine pH 6.5 Urine Specific [place] 1.025 Urine Protein Negative mg/dL (NEG-TRACE) Urine Glucose (UA) Negative mg/dL (NEG) Urine Ketones (Stick) Negative mg/dL (NEG) Urine Blood Negative (NEG) Urine Nitrite Negative (NEG) Urine Bilirubin Negative (NEG) Urine Urobilinogen Dipstick 0.2 mg/dL (0.2 mg/dL) Urine Leukocyte Esterase Negative (NEG) Urine RBC 0 /HPF (0-2) Urine WBC 1-4 /HPF (0-4) Urine Squamous Epithelial Cells Many /LPF Urine Bacteria Moderate /HPF (0-FEW) Urine Mucus Marked /LPF Test 11/25/18 21:30 11/26/18 03:25 Influenza Type A Antigen Negative (NEGATIVE) Influenza Type B Antigen Negative (NEGATIVE) White Blood Count 1.8 x10^3/uL (4.0-11.0) Red Blood Count 4.04 x10^6/uL (3.50-5.40) Hemoglobin 10.7 g/dL (12.0-15.5) Hematocrit 32.5 % (36.0-47.0) Mean Corpuscular Volume 80 fL (79-100) Mean Corpuscular Hemoglobin 27 pg (25-35) Mean Corpuscular Hemoglobin Concent 33 g/dL (31-37) Red Cell Distribution Width 14.7 % (11.5-14.5) Platelet Count 81 x10^3/uL (140-400) Neutrophils (%) (Auto) 88 % (31-73) Lymphocytes (%) (Auto) 1 % (24-48) Monocytes (%) (Auto) 9 % (0-9) Eosinophils (%) (Auto) 2 % (0-3) Basophils (%) (Auto) 1 % (0-3) Neutrophils # (Auto) 1.6 x10^3uL (1.8-7.7) Lymphocytes # (Auto) 0.0 x10^3/uL (1.0-4.8) Monocytes # (Auto) 0.2 x10^3/uL (0.0-1.1) Eosinophils # (Auto) 0.0 x10^3/uL (0.0-0.7) Basophils # (Auto) 0.0 x10^3/uL (0.0-0.2) Fibrinogen 377 mg/dL (200-440) D-Dimer (Nancie) 6.45 ug/mlFEU (0.00-0.50) Sodium Level 138 mmol/L (136-145) Potassium Level 3.5 mmol/L (3.5-5.1) Chloride Level 103 mmol/L (98-107) Carbon Dioxide Level 24 mmol/L (21-32) Anion Gap 11 (6-14) Blood Urea Nitrogen 8 mg/dL (7-20) Creatinine 1.0 mg/dL (0.6-1.0) Estimated GFR (Cockcroft-Gault) 56.9 Glucose Level 126 mg/dL (70-99) Calcium Level 7.7 mg/dL (8.5-10.1) Procalcitonin 0.79 ng/mL (0.00-0.10) JES BALLESTEROS MD Nov 26, 2018 10:17
[2018-11-26 11:00] VITALS: BP 132/64
[2018-11-26] MEDS ORDERED: IBUPROFEN 400 MG TABLET. PO ONE (11:30)
--- NOTE | 2018-11-26 11:32 | PDOC ---
Infectious Disease Note Vital Sign Vital Signs Vital Signs Date Time Temp Pulse Resp B/P (MAP) Pulse Ox O2 Delivery O2 Flow Rate FiO2 11/26/18 10:05 101.9 101.9 11/26/18 09:12 109 132/66 11/26/18 07:00 18 100 Room Air Labs Lab Laboratory Tests Test 11/25/18 13:05 11/25/18 13:25 11/25/18 15:40 11/25/18 18:00 Prothrombin Time 13.3 SEC (11.7-14.0) Prothromb Time International Ratio 1.0 (0.8-1.1) Activated Partial Thromboplast Time 26 SEC (24-38) White Blood Count 2.2 x10^3/uL (4.0-11.0) Red Blood Count 4.35 x10^6/uL (3.50-5.40) Hemoglobin 11.7 g/dL (12.0-15.5) Hematocrit 35.5 % (36.0-47.0) Mean Corpuscular Volume 82 fL (79-100) Mean Corpuscular Hemoglobin 27 pg (25-35) Mean Corpuscular Hemoglobin Concent 33 g/dL (31-37) Red Cell Distribution Width 14.5 % (11.5-14.5) Platelet Count 93 x10^3/uL (140-400) Neutrophils (%) (Auto) 89 % (31-73) Lymphocytes (%) (Auto) 0 % (24-48) Monocytes (%) (Auto) 8 % (0-9) Eosinophils (%) (Auto) 2 % (0-3) Basophils (%) (Auto) 1 % (0-3) Neutrophils # (Auto) 1.9 x10^3uL (1.8-7.7) Lymphocytes # (Auto) 0.0 x10^3/uL (1.0-4.8) Monocytes # (Auto) 0.2 x10^3/uL (0.0-1.1) Eosinophils # (Auto) 0.0 x10^3/uL (0.0-0.7) Basophils # (Auto) 0.0 x10^3/uL (0.0-0.2) Segmented Neutrophils % 89 % (35-66) Band Neutrophils % 3 % (0-9) Monocytes % 7 % (0-10) Eosinophils % 1 % (0-5) Platelet Estimate Decreased (ADEQUATE) Sodium Level 141 mmol/L (136-145) Potassium Level 3.6 mmol/L (3.5-5.1) Chloride Level 100 mmol/L (98-107) Carbon Dioxide Level 29 mmol/L (21-32) Anion Gap 12 (6-14) Blood Urea Nitrogen 10 mg/dL (7-20) Creatinine 0.9 mg/dL (0.6-1.0) Estimated GFR (Cockcroft-Gault) 64.3 BUN/Creatinine Ratio 11 (6-20) Glucose Level 119 mg/dL (70-99) Lactic Acid Level 3.3 mmol/L (0.4-2.0) 1.3 mmol/L (0.4-2.0) Calcium Level 8.5 mg/dL (8.5-10.1) Total Bilirubin 1.1 mg/dL (0.2-1.0) Aspartate Amino Transf (AST/SGOT) 28 U/L (15-37) Alanine Aminotransferase (ALT/SGPT) 47 U/L (14-59) Alkaline Phosphatase 132 U/L (46-116) Creatine Kinase 33 U/L (26-192) Creatine Kinase MB (Mass) < 0.5 ng/mL (0.0-3.6) Creatine Kinase MB Relative Index % (0-4) Total Protein 6.1 g/dL (6.4-8.2) Albumin 3.4 g/dL (3.4-5.0) Albumin/Globulin Ratio 1.3 (1.0-1.7) Procalcitonin 0.25 ng/mL (0.00-0.10) Urine Collection Type Unknown Urine Color Yellow Urine Clarity Clear Urine pH 6.5 Urine Specific [place] 1.025 Urine Protein Negative mg/dL (NEG-TRACE) Urine Glucose (UA) Negative mg/dL (NEG) Urine Ketones (Stick) Negative mg/dL (NEG) Urine Blood Negative (NEG) Urine Nitrite Negative (NEG) Urine Bilirubin Negative (NEG) Urine Urobilinogen Dipstick 0.2 mg/dL (0.2 mg/dL) Urine Leukocyte Esterase Negative (NEG) Urine RBC 0 /HPF (0-2) Urine WBC 1-4 /HPF (0-4) Urine Squamous Epithelial Cells Many /LPF Urine Bacteria Moderate /HPF (0-FEW) Urine Mucus Marked /LPF Test 11/25/18 21:30 11/26/18 03:25 Influenza Type A Antigen Negative (NEGATIVE) Influenza Type B Antigen Negative (NEGATIVE) White Blood Count 1.8 x10^3/uL (4.0-11.0) Red Blood Count 4.04 x10^6/uL (3.50-5.40) Hemoglobin 10.7 g/dL (12.0-15.5) Hematocrit 32.5 % (36.0-47.0) Mean Corpuscular Volume 80 fL (79-100) Mean Corpuscular Hemoglobin 27 pg (25-35) Mean Corpuscular Hemoglobin Concent 33 g/dL (31-37) Red Cell Distribution Width 14.7 % (11.5-14.5) Platelet Count 81 x10^3/uL (140-400) Neutrophils (%) (Auto) 88 % (31-73) Lymphocytes (%) (Auto) 1 % (24-48) Monocytes (%) (Auto) 9 % (0-9) Eosinophils (%) (Auto) 2 % (0-3) Basophils (%) (Auto) 1 % (0-3) Neutrophils # (Auto) 1.6 x10^3uL (1.8-7.7) Lymphocytes # (Auto) 0.0 x10^3/uL (1.0-4.8) Monocytes # (Auto) 0.2 x10^3/uL (0.0-1.1) Eosinophils # (Auto) 0.0 x10^3/uL (0.0-0.7) Basophils # (Auto) 0.0 x10^3/uL (0.0-0.2) Fibrinogen 377 mg/dL (200-440) D-Dimer (Nancie) 6.45 ug/mlFEU (0.00-0.50) Sodium Level 138 mmol/L (136-145) Potassium Level 3.5 mmol/L (3.5-5.1) Chloride Level 103 mmol/L (98-107) Carbon Dioxide Level 24 mmol/L (21-32) Anion Gap 11 (6-14) Blood Urea Nitrogen 8 mg/dL (7-20) Creatinine 1.0 mg/dL (0.6-1.0) Estimated GFR (Cockcroft-Gault) 56.9 Glucose Level 126 mg/dL (70-99) Calcium Level 7.7 mg/dL (8.5-10.1) Procalcitonin 0.79 ng/mL (0.00-0.10) Objective Assessment Fever Neutropenia Lymphoma Plan Plan of Care vanc and cefepime check cultures d/w ELVIS Page MD Nov 26, 2018 11:32
[2018-11-26] MEDS: CEFEPIME HCL IV Push 1 GM VIAL. IVP SCH ×2 (13:06→21:47)
--- NOTE | 2018-11-26 13:28 | PDOC ---
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, marginal zone lymphoma obesity, BMI 36 PLAN BLOOD AND URINE CULTURES ID CONSULT ONCOLOGY CONSULT EMPERIC IV ANTIBIOTICS DVT PROPHYLAXIS LACTIC ACID TELE ADMIT 2 MN HIGH RISK OF SEPSIS/BACTEREMIA PER MY CHART REVIEW/ COMPLICATIONS WITHOUT EMPERIC IV ANTIBIOTICS IV VANC, LEVAQUIN NEUTROPENIC PRECAUTIONS History of Present Illness History of Present Illness drug rash, give benadryl, abd changed to cefepime, pcn allergy noted, ID consult following cont current PO intake a little better today Vitals Vitals Vital Signs Date Time Temp Pulse Resp B/P (MAP) Pulse Ox O2 Delivery O2 Flow Rate FiO2 11/26/18 11:00 100.8 104 18 132/64 (86) 96 Room Air 100.8 Physical Exam General: Alert, Oriented X3, Cooperative, No acute distress Lungs: Clear Abdomen: Normal bowel sounds, Soft Extremities: No cyanosis Skin: No breakdown Labs LABS Laboratory Tests Test 11/25/18 15:40 11/25/18 18:00 11/25/18 21:30 11/26/18 03:25 Urine Collection Type Unknown Urine Color Yellow Urine Clarity Clear Urine pH 6.5 Urine Specific [place] 1.025 Urine Protein Negative mg/dL (NEG-TRACE) Urine Glucose (UA) Negative mg/dL (NEG) Urine Ketones (Stick) Negative mg/dL (NEG) Urine Blood Negative (NEG) Urine Nitrite Negative (NEG) Urine Bilirubin Negative (NEG) Urine Urobilinogen Dipstick 0.2 mg/dL (0.2 mg/dL) Urine Leukocyte Esterase Negative (NEG) Urine RBC 0 /HPF (0-2) Urine WBC 1-4 /HPF (0-4) Urine Squamous Epithelial Cells Many /LPF Urine Bacteria Moderate /HPF (0-FEW) Urine Mucus Marked /LPF Lactic Acid Level 1.3 mmol/L (0.4-2.0) Influenza Type A Antigen Negative (NEGATIVE) Influenza Type B Antigen Negative (NEGATIVE) White Blood Count 1.8 x10^3/uL (4.0-11.0) Red Blood Count 4.04 x10^6/uL (3.50-5.40) Hemoglobin 10.7 g/dL (12.0-15.5) Hematocrit 32.5 % (36.0-47.0) Mean Corpuscular Volume 80 fL (79-100) Mean Corpuscular Hemoglobin 27 pg (25-35) Mean Corpuscular Hemoglobin Concent 33 g/dL (31-37) Red Cell Distribution Width 14.7 % (11.5-14.5) Platelet Count 81 x10^3/uL (140-400) Neutrophils (%) (Auto) 88 % (31-73) Lymphocytes (%) (Auto) 1 % (24-48) Monocytes (%) (Auto) 9 % (0-9) Eosinophils (%) (Auto) 2 % (0-3) Basophils (%) (Auto) 1 % (0-3) Neutrophils # (Auto) 1.6 x10^3uL (1.8-7.7) Lymphocytes # (Auto) 0.0 x10^3/uL (1.0-4.8) Monocytes # (Auto) 0.2 x10^3/uL (0.0-1.1) Eosinophils # (Auto) 0.0 x10^3/uL (0.0-0.7) Basophils # (Auto) 0.0 x10^3/uL (0.0-0.2) Fibrinogen 377 mg/dL (200-440) D-Dimer (Nancie) 6.45 ug/mlFEU (0.00-0.50) Sodium Level 138 mmol/L (136-145) Potassium Level 3.5 mmol/L (3.5-5.1) Chloride Level 103 mmol/L (98-107) Carbon Dioxide Level 24 mmol/L (21-32) Anion Gap 11 (6-14) Blood Urea Nitrogen 8 mg/dL (7-20) Creatinine 1.0 mg/dL (0.6-1.0) Estimated GFR (Cockcroft-Gault) 56.9 Glucose Level 126 mg/dL (70-99) Calcium Level 7.7 mg/dL (8.5-10.1) Procalcitonin 0.79 ng/mL (0.00-0.10) Review of Systems Review of Systems nausea, weakness, rash Assessment and Plan Assessmemt and Plan Problems Medical Problems: (1) Fever Status: Acute (2) Sepsis Status: Acute Comment Review of Relevant I have reviewed the following items kike (where applicable) has been applied. Labs Laboratory Tests Test 11/25/18 13:05 11/25/18 13:25 11/25/18 15:40 11/25/18 18:00 Prothrombin Time 13.3 SEC (11.7-14.0) Prothromb Time International Ratio 1.0 (0.8-1.1) Activated Partial Thromboplast Time 26 SEC (24-38) White Blood Count 2.2 x10^3/uL (4.0-11.0) Red Blood Count 4.35 x10^6/uL (3.50-5.40) Hemoglobin 11.7 g/dL (12.0-15.5) Hematocrit 35.5 % (36.0-47.0) Mean Corpuscular Volume 82 fL (79-100) Mean Corpuscular Hemoglobin 27 pg (25-35) Mean Corpuscular Hemoglobin Concent 33 g/dL (31-37) Red Cell Distribution Width 14.5 % (11.5-14.5) Platelet Count 93 x10^3/uL (140-400) Neutrophils (%) (Auto) 89 % (31-73) Lymphocytes (%) (Auto) 0 % (24-48) Monocytes (%) (Auto) 8 % (0-9) Eosinophils (%) (Auto) 2 % (0-3) Basophils (%) (Auto) 1 % (0-3) Neutrophils # (Auto) 1.9 x10^3uL (1.8-7.7) Lymphocytes # (Auto) 0.0 x10^3/uL (1.0-4.8) Monocytes # (Auto) 0.2 x10^3/uL (0.0-1.1) Eosinophils # (Auto) 0.0 x10^3/uL (0.0-0.7) Basophils # (Auto) 0.0 x10^3/uL (0.0-0.2) Segmented Neutrophils % 89 % (35-66) Band Neutrophils % 3 % (0-9) Monocytes % 7 % (0-10) Eosinophils % 1 % (0-5) Platelet Estimate Decreased (ADEQUATE) Sodium Level 141 mmol/L (136-145) Potassium Level 3.6 mmol/L (3.5-5.1) Chloride Level 100 mmol/L (98-107) Carbon Dioxide Level 29 mmol/L (21-32) Anion Gap 12 (6-14) Blood Urea Nitrogen 10 mg/dL (7-20) Creatinine 0.9 mg/dL (0.6-1.0) Estimated GFR (Cockcroft-Gault) 64.3 BUN/Creatinine Ratio 11 (6-20) Glucose Level 119 mg/dL (70-99) Lactic Acid Level 3.3 mmol/L (0.4-2.0) 1.3 mmol/L (0.4-2.0) Calcium Level 8.5 mg/dL (8.5-10.1) Total Bilirubin 1.1 mg/dL (0.2-1.0) Aspartate Amino Transf (AST/SGOT) 28 U/L (15-37) Alanine Aminotransferase (ALT/SGPT) 47 U/L (14-59) Alkaline Phosphatase 132 U/L (46-116) Creatine Kinase 33 U/L (26-192) Creatine Kinase MB (Mass) < 0.5 ng/mL (0.0-3.6) Creatine Kinase MB Relative Index % (0-4) Total Protein 6.1 g/dL (6.4-8.2) Albumin 3.4 g/dL (3.4-5.0) Albumin/Globulin Ratio 1.3 (1.0-1.7) Procalcitonin 0.25 ng/mL (0.00-0.10) Urine Collection Type Unknown Urine Color Yellow Urine Clarity Clear Urine pH 6.5 Urine Specific [place] 1.025 Urine Protein Negative mg/dL (NEG-TRACE) Urine Glucose (UA) Negative mg/dL (NEG) Urine Ketones (Stick) Negative mg/dL (NEG) Urine Blood Negative (NEG) Urine Nitrite Negative (NEG) Urine Bilirubin Negative (NEG) Urine Urobilinogen Dipstick 0.2 mg/dL (0.2 mg/dL) Urine Leukocyte Esterase Negative (NEG) Urine RBC 0 /HPF (0-2) Urine WBC 1-4 /HPF (0-4) Urine Squamous Epithelial Cells Many /LPF Urine Bacteria Moderate /HPF (0-FEW) Urine Mucus Marked /LPF Test 11/25/18 21:30 11/26/18 03:25 Influenza Type A Antigen Negative (NEGATIVE) Influenza Type B Antigen Negative (NEGATIVE) White Blood Count 1.8 x10^3/uL (4.0-11.0) Red Blood Count 4.04 x10^6/uL (3.50-5.40) Hemoglobin 10.7 g/dL (12.0-15.5) Hematocrit 32.5 % (36.0-47.0) Mean Corpuscular Volume 80 fL (79-100) Mean Corpuscular Hemoglobin 27 pg (25-35) Mean Corpuscular Hemoglobin Concent 33 g/dL (31-37) Red Cell Distribution Width 14.7 % (11.5-14.5) Platelet Count 81 x10^3/uL (140-400) Neutrophils (%) (Auto) 88 % (31-73) Lymphocytes (%) (Auto) 1 % (24-48) Monocytes (%) (Auto) 9 % (0-9) Eosinophils (%) (Auto) 2 % (0-3) Basophils (%) (Auto) 1 % (0-3) Neutrophils # (Auto) 1.6 x10^3uL (1.8-7.7) Lymphocytes # (Auto) 0.0 x10^3/uL (1.0-4.8) Monocytes # (Auto) 0.2 x10^3/uL (0.0-1.1) Eosinophils # (Auto) 0.0 x10^3/uL (0.0-0.7) Basophils # (Auto) 0.0 x10^3/uL (0.0-0.2) Fibrinogen 377 mg/dL (200-440) D-Dimer (Nancie) 6.45 ug/mlFEU (0.00-0.50) Sodium Level 138 mmol/L (136-145) Potassium Level 3.5 mmol/L (3.5-5.1) Chloride Level 103 mmol/L (98-107) Carbon Dioxide Level 24 mmol/L (21-32) Anion Gap 11 (6-14) Blood Urea Nitrogen 8 mg/dL (7-20) Creatinine 1.0 mg/dL (0.6-1.0) Estimated GFR (Cockcroft-Gault) 56.9 Glucose Level 126 mg/dL (70-99) Calcium Level 7.7 mg/dL (8.5-10.1) Procalcitonin 0.79 ng/mL (0.00-0.10) Laboratory Tests Test 11/25/18 15:40 11/25/18 18:00 11/25/18 21:30 11/26/18 03:25 Urine Collection Type Unknown Urine Color Yellow Urine Clarity Clear Urine pH 6.5 Urine Specific [place] 1.025 Urine Protein Negative mg/dL (NEG-TRACE) Urine Glucose (UA) Negative mg/dL (NEG) Urine Ketones (Stick) Negative mg/dL (NEG) Urine Blood Negative (NEG) Urine Nitrite Negative (NEG) Urine Bilirubin Negative (NEG) Urine Urobilinogen Dipstick 0.2 mg/dL (0.2 mg/dL) Urine Leukocyte Esterase Negative (NEG) Urine RBC 0 /HPF (0-2) Urine WBC 1-4 /HPF (0-4) Urine Squamous Epithelial Cells Many /LPF Urine Bacteria Moderate /HPF (0-FEW) Urine Mucus Marked /LPF Lactic Acid Level 1.3 mmol/L (0.4-2.0) Influenza Type A Antigen Negative (NEGATIVE) Influenza Type B Antigen Negative (NEGATIVE) White Blood Count 1.8 x10^3/uL (4.0-11.0) Red Blood Count 4.04 x10^6/uL (3.50-5.40) Hemoglobin 10.7 g/dL (12.0-15.5) Hematocrit 32.5 % (36.0-47.0) Mean Corpuscular Volume 80 fL (79-100) Mean Corpuscular Hemoglobin 27 pg (25-35) Mean Corpuscular Hemoglobin Concent 33 g/dL (31-37) Red Cell Distribution Width 14.7 % (11.5-14.5) Platelet Count 81 x10^3/uL (140-400) Neutrophils (%) (Auto) 88 % (31-73) Lymphocytes (%) (Auto) 1 % (24-48) Monocytes (%) (Auto) 9 % (0-9) Eosinophils (%) (Auto) 2 % (0-3) Basophils (%) (Auto) 1 % (0-3) Neutrophils # (Auto) 1.6 x10^3uL (1.8-7.7) Lymphocytes # (Auto) 0.0 x10^3/uL (1.0-4.8) Monocytes # (Auto) 0.2 x10^3/uL (0.0-1.1) Eosinophils # (Auto) 0.0 x10^3/uL (0.0-0.7) Basophils # (Auto) 0.0 x10^3/uL (0.0-0.2) Fibrinogen 377 mg/dL (200-440) D-Dimer (Nancie) 6.45 ug/mlFEU (0.00-0.50) Sodium Level 138 mmol/L (136-145) Potassium Level 3.5 mmol/L (3.5-5.1) Chloride Level 103 mmol/L (98-107) Carbon Dioxide Level 24 mmol/L (21-32) Anion Gap 11 (6-14) Blood Urea Nitrogen 8 mg/dL (7-20) Creatinine 1.0 mg/dL (0.6-1.0) Estimated GFR (Cockcroft-Gault) 56.9 Glucose Level 126 mg/dL (70-99) Calcium Level 7.7 mg/dL (8.5-10.1) Procalcitonin 0.79 ng/mL (0.00-0.10) Medications Current Medications Vancomycin HCl (Vanco Per Pharmacy) 1 each 1X ONCE MC Last administered on 13:00; Start 11/25/18 at 13:00; Stop 11/25/18 at 13:08; Status DC Levofloxacin/ Dextrose 150 ml @ 100 mls/hr 1X ONCE IV Last administered on 14:47; Start 11/25/18 at 13:00; Stop 11/25/18 at 14:29; Status DC Sodium Chloride 1,000 ml @ 166.667 mls/hr Q6H IV Last administered on 09:13; Start 11/25/18 at 13:00; Stop 11/26/18 at 09:08; Status DC Acetaminophen (Tylenol) 1,000 mg 1X ONCE PO Last administered on 11/25/18 13: 20; Start 11/25/18 at 13:00; Stop 11/25/18 at 13:06; Status DC Vancomycin HCl 2 gm/Sodium Chloride 500 ml @ 250 mls/hr 1X ONCE IV Last administered on 11/25/18 16:30; Start 11/25/18 at 13:15; Stop 11/25/18 at 15:14 ; Status DC Ondansetron HCl (Zofran) 4 mg PRN Q8HRS PRN IV NAUSEA/VOMITING Last administered on 11/25/18 17:02; Start 11/25/18 at 15:45; Stop 11/26/18 at 15:44 Fentanyl Citrate (Fentanyl 2ml Vial) 50 mcg PRN Q1HR PRN IV PAIN; Start at 15:45; Stop 11/26/18 at 15:44 Acetaminophen (Tylenol) 650 mg PRN Q4HRS PRN PO FEVER Last administered on 11/26 09:13; Start 11/25/18 at 15:45; Stop 11/26/18 at 15:44 Sodium Chloride 1,000 ml @ 125 mls/hr 1X ONCE IV ; Start 11/25/18 at 15:45; Stop 11/25/18 at 23:44; Status DC Sodium Chloride 1,000 ml @ 1,980 mls/hr Q31M IV Last administered on 20:51; Start 11/25/18 at 20:20; Stop 11/25/18 at 21:20; Status DC Sodium Chloride 500 ml @ 1,000 mls/hr PRN Q30MIN PRN IV SEE COMMENTS; Start at 20:30 Levofloxacin/ Dextrose 100 ml @ 100 mls/hr Q24H IV Last administered on 21:26; Start 11/25/18 at 21:00; Stop 11/26/18 at 11:30; Status DC Aspirin (Children'S Aspirin) 81 mg DAILY PO Last administered on 11/26/18 09: 12; Start 11/26/18 at 09:00 Duloxetine HCl (Cymbalta) 30 mg DAILY PO Last administered on 11/26/18 09:12; Start 11/26/18 at 09:00 Levothyroxine Sodium (Synthroid) 100 mcg DAILY06 PO Last administered on 05:50; Start 11/26/18 at 06:00 Metoprolol Tartrate (Lopressor) 25 mg DAILY PO Last administered on 11/26/18 09:12; Start 11/26/18 at 09:00 Non-Formulary Medication (Biotin ) 10,000 mcg DAILY PO ; Start 11/26/18 at 09:00 ; Status UNV Latanoprost (Xalatan) 1 drop QHS OU Last administered on 3/12/19at 21:25; Start 11/25/18 at 21:00 Multivitamins (Thera M Plus) 1 tab DAILY PO Last administered on 11/26/18at 09: 12; Start 11/26/18 at 09:00 Enoxaparin Sodium (Lovenox 40mg Syringe) 40 mg Q24H SQ ; Start 11/25/18 at 21:00 Ibuprofen (Motrin) 800 mg 1X ONCE PO Last administered on 11/26/18at 11:20; Start 11/26/18 at 11:30; Stop 11/26/18 at 11:31; Status DC Cefepime HCl (Maxipime) 1 gm Q12HR IVP Last administered on 11/26/18at 13:06; Start 11/26/18 at 12:00 Active Scripts Active Reported Biotin 10,000 Mcg Capsule 10,000 Mcg PO DAILY Multivitamins (Multivitamin) 1 Each Tablet 1 Each PO DAILY Metoprolol Tartrate 25 Mg Tablet 25 Mg PO DAILY Cymbalta (Duloxetine Hcl) 30 Mg Capsule.dr 1 Cap PO DAILY Aspirin 81 Mg Tab.chew 1 Tab PO DAILY Synthroid (Levothyroxine Sodium) 88 Mcg Tablet 100 Mcg PO DAILY Climara (Estradiol) 1 Each Patch.tdwk Latanoprost 2.5 Ml Drops 1 Drop EACHEYE QHS Vitals/I & O Vital Sign - Last 24 Hours 11/25/18 11/25/18 11/25/18 11/25/18 13:42 14:12 14:42 15:15 Temp 99.8 99.8 Pulse 104 102 104 Resp 18 18 B/P (MAP) 165/75 (105) 169/72 (104) 155/66 (95) Pulse Ox 98 97 97 O2 Delivery Room Air Room Air Room Air 11/25/18 11/25/18 11/25/18 11/25/18 16:14 16:45 19:45 20:00 Temp 102.0 101.7 102.0 101.7 Pulse 111 125 Resp 20 22 B/P (MAP) 148/69 (95) 128/56 (80) Pulse Ox 98 95 O2 Delivery Room Air Room Air Room Air Room Air 11/25/18 11/26/18 11/26/18 11/26/18 23:12 03:11 07:00 08:00 Temp 102.9 102.6 100.8 102.9 102.6 100.8 Pulse 138 123 109 Resp 20 17 18 B/P (MAP) 126/66 (86) 134/67 (89) 132/66 (88) Pulse Ox 96 97 100 O2 Delivery Room Air Room Air Room Air Room Air 11/26/18 11/26/18 11/26/18 09:12 10:05 11:00 Temp 101.9 100.8 101.9 100.8 Pulse 109 104 Resp 18 B/P (MAP) 132/66 132/64 (86) Pulse Ox 96 O2 Delivery Room Air Intake and Output 11/25/18 11/25/18 11/26/18 14:59 22:59 06:59 Intake Total 1720 ml 550 ml 650 ml Balance 1720 ml 550 ml 650 ml MARVA MACEDO MD Nov 26, 2018 13:28
[2018-11-26] MEDS ORDERED: diphenhydrAMINE HCL 25 MG CAPSULE PO PRN (13:30)
[2018-11-26] MEDS ORDERED: diphenhydrAMINE HCL 25 MG CAPSULE PO ONE (13:45)
[2018-11-26] MEDS ORDERED: VANCOMYCIN PER PHARMACY MC PRN (14:45)
--- NOTE | 2018-11-26 14:45 | NUR ---
Pharmacy Vancomycin Dosing Note S:Consulted to monitor and dose vancomycin started 11/26/18. O:DEVAN LIU is a 58 year old F with Neutropenic Fever . Height: 5 feet, 9 inches Weight: 112.002547 kg [place] Body Weight: 66.20 Adjusted Body Weight: 84.52 Dosing Weight: Actual Other Antibiotics: CEFEPIME LABS: Last BUN: 8 Last Creatinine: 1.0 Creatinine Clearance: 81 mL/min Last WBC: 1.8 Last Procalcitonin: Tmax (past 24 hours): 102.6 Microbiology: 11/25 Blood: no growth I/O: 2920/3 VOIDS Drug Levels: Last level: on at Last dose given at Vancomycin Dosing: Loading Dose: 2000 mg x1 Dosing Weight: Actual Target Trough: 15-20 A: Based on: Body weight and renal function P: 1. Start Vancomycin 1500 mg IV q12h 2. Follow up Trough level on 11/28/18 at 0230 3. Pharmacy will continue to monitor, follow and adjust therapy as needed. ABDIAS JOHNSON [facility], 11/26/18 1391
--- NOTE | 2018-11-26 14:56 | NUR ---
SW following pt for anticipated dc needs. Chart reviewed and DW RN. Pt is from home with spouse. RN reported pt is independent with ADL's. RN also stated pt is a new CA pt and on chemo. Will continue to assess dc needs.
[2018-11-26 15:00] VITALS: BP 118/55
[2018-11-26] MEDS: VANCOMYCIN 1.5 GM in IV NORMAL SALINE 500ML BAG 500 ML IV SCH (15:30)
--- NOTE | 2018-11-26 17:07 | NUR ---
Spoke with Dr. Ballesteros regarding patient rash across chest and back. This RN explained that the patient only complains of slight itching across the chest area which is improved with Benadryl and cold, wet towels. Pt is not having difficulty breathing at this time, currently resting comfortably in bed. Dr. Ballesteros stated that this is a common reaction to first-time chemotherapy and if the rash gets worse, becomes very bothersome to the patient, or the patient has difficulty breathing, then to notify her. Will continue to monitor.
[2018-11-26 19:10] VITALS: BP 144/66
[2018-11-26] MEDS: ENOXAPARIN 40 MG/0.4 ML SYRINGE. SQ SCH (21:00)
[2018-11-26] MEDS: LATANOPROST 0.005% OPHTH SOLUTION 2.5ML BOTTLE. OU SCH (21:47)
[2018-11-26 22:59] VITALS: BP 122/59
[2018-11-27] MEDS: ACETAMINOPHEN 325 MG TABLET. PO PRN ×4 (02:34→21:09)
[2018-11-27] MEDS: VANCOMYCIN 1.5 GM in IV NORMAL SALINE 500ML BAG 500 ML IV SCH (02:41)
[2018-11-27 03:04] VITALS: BP 134/66
--- NOTE | 2018-11-27 06:12 | CONS ---
DATE OF CONSULTATION: 11/26/2018 REQUESTING PHYSICIAN: Dr. Whitman. REASON FOR CONSULTATION: Neutropenic fever. HISTORY OF PRESENT ILLNESS: This is a 58-year-old female with history of recently diagnosed lymphoma who has had one round of chemotherapy, who presented with 2-day history of fever. The patient denied any nausea, vomiting, diarrhea. Denied any chest pain, shortness of breath, abdominal pains, sore throat or headaches. The patient did break out in rash today. The patient has been put on vancomycin and Levaquin and consult has been requested. PAST MEDICAL HISTORY: Positive for, as I said, lymphoma, on chemotherapy. The patient also has hypothyroidism, atrial fibrillation, hypertension, coronary artery disease, has had cholecystectomy, foot surgery, wrist surgery, hysterectomy. SOCIAL HISTORY: Negative for smoking, alcohol, illicit drug use. 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 ALLERGIES: LISTED ALLERGIC TO PENICILLIN, CAUSED "BODY SWELLING" OR SHORTNESS OF BREATH WHEN SHE WAS IN 20S AND SULFA CAUSES RASH. CURRENT MEDICATIONS: Reviewed. REVIEW OF SYSTEMS: As per HPI. All other systems reviewed are negative. The patient denies any travel history. Denies any apparent sick contact. Denies any outdoor activities. PHYSICAL EXAMINATION: GENERAL: Alert, oriented female, not in any distress. VITAL SIGNS: Stable with a T-max 102.9. HEENT: NAD. NECK: Supple, no JVP, no lymphadenopathy. LUNGS: Clear. HEART: S1, S2 regular. ABDOMEN: Benign. EXTREMITIES: No edema or cyanosis. SKIN: The patient does have maculopapular rash all over the body, does have Port-A-Cath or some sort of central tunneled catheter in the right upper chest, which is not showing any signs of infection. LABORATORY DATA: White count is 1.8, hemoglobin 10.7, platelets are 81,000. BUN and creatinine is normal. Her lactic acid was 3.3. Urinalysis unremarkable for infection. Influenza screen is negative. Chest x-ray is unremarkable. Cultures have been taken. IMPRESSION: 1. Fever. 2. Neutropenia from chemotherapy. 3. Lymphomas, on chemotherapy. 4. Hypertension. 5. Hypothyroidism. RECOMMENDATIONS: We will discontinue Levaquin. Initiate cefepime. Continue vancomycin. Supportive care. We will check the cultures and adjust. Discussion with done at the bedside. Thank you very much, Dr. Whitman, for giving me the opportunity to participate in this patient's care. ELVIS CARMONA MD DR: LOKESH/esme JOB#: [id number] / [id number]
[2018-11-27] MEDS: LEVOTHYROXINE 100 MCG TABLET PO SCH (06:20)
[2018-11-27 07:15] VITALS: BP 126/54
[2018-11-27 08:10] LABS: CREATININE 0.9 mg/dL (0.6-1.0); GFR 64.3
[2018-11-27 08:23] LABS: BASO % 0 % (0-3); EOS # 0.1 x10^3/uL (0.0-0.7); EOS % 3 % (0-3); HEMATOCRIT 33.4 % (36.0-47.0); LYMPH % 2 % (24-48); MEAN CORPUSCULAR HEMOGLOBIN 27 pg (25-35); MEAN CORPUSCULAR HGB CONC 33 g/dL (31-37); MEAN CORPUSCULAR VOLUME 81 fL (79-100); MONO # 0.1 x10^3/uL (0.0-1.1); MONO % 5 % (0-9); NEUT # 1.8 x10^3uL (1.8-7.7); NEUT % 90 % (31-73); PLATELET COUNT 86 x10^3/uL (140-400); RED BLOOD COUNT 4.13 x10^6/uL (3.50-5.40); RED CELL DISTRIBUTION WIDTH 15.1 % (11.5-14.5)
[2018-11-27] MEDS: DULoxetine HCL 30 MG CAPSULE.DR PO SCH (08:33)
[2018-11-27] MEDS: METOPROLOL TART IMMED RELEASE 25 MG TABLET. PO SCH (08:33)
[2018-11-27] MEDS: ASPIRIN CHEWABLE 81 MG TABLET. PO SCH (08:33)
[2018-11-27] MEDS: MULTIVITAMIN with MINERAL TABLET. PO SCH (08:33)
[2018-11-27] MEDS: CEFEPIME HCL IV Push 1 GM VIAL. IVP SCH (08:35)
--- NOTE | 2018-11-27 10:05 | PDOC ---
SUBJECTIVE Subjective S: Diffuse rash all over her body, I think it's due to vancomycin, she did it looks like receive vancomycin beginning on the , rash began on the at about 10 AM, and has continued to progress, slight pain, not bad, not really itchy, did get some Benadryl, fever curve was improving but did have another 103 temp yesterday O: Physical exam: Gen.: Well-nourished and well-developed, resting in bed Lungs: Breathing comfortably with no evidence of respiratory distress Skin: Diffuse erythematous rash Psychiatric: Pleasant mood and affect Labs: ANC 1800 today Assessment and Plan: 58-year-old female with marginal zone lymphoma cycle 1 day 11 bendamustine and rituximab admitted for fever up to 103 Fever: Blood cultures and urine cultures negative thus far, chest x-ray negative , port looks okay, getting antibiotics, ID is involved, appreciate multidisciplinary assistance, would consider blood cultures every 24 hours of continuing to fever, and from port DVT prophylaxis: Lovenox, would hold if plts <50 Marginal zone lymphoma: Chemotherapy therapy on hold for the moment, consider G- CSF as needed though not neutropenic at this time Rash: Suspect this is from vancomycin, defer antibiotic management to ID Dispo: after improvement, to f/u w/ Dr Luis as outpt Thank you kindly and please do not hesitate to call with questions. OBJECTIVE Vital Signs Vital Signs Date Time Temp Pulse Resp B/P (MAP) Pulse Ox O2 Delivery O2 Flow Rate FiO2 11/27/18 08:33 113 126/54 11/27/18 07:15 100.1 113 20 126/54 (78) 96 Room Air 100.1 11/27/18 03:04 103.1 136 24 134/66 (88) 99 Room Air 103.1 11/26/18 22:59 98.9 123 24 122/59 (80) 97 Room Air 98.9 11/26/18 20:00 Room Air 11/26/18 19:10 101.6 124 22 144/66 (92) 96 Room Air 101.6 11/26/18 17:51 99.9 99.9 11/26/18 15:00 98.5 101 18 118/55 (76) 99 Room Air 98.5 11/26/18 11:00 100.8 104 18 132/64 (86) 96 Room Air 100.8 11/26/18 10:05 101.9 101.9 I & O Intake and Output 11/27/18 07:00 Intake Total 2170 ml Balance 2170 ml Intake Oral 2170 ml # Voids 7 COMMENT Lab Laboratory Tests Test 11/27/18 06:53 White Blood Count 2.0 x10^3/uL (4.0-11.0) Red Blood Count 4.13 x10^6/uL (3.50-5.40) Hemoglobin 11.0 g/dL (12.0-15.5) Hematocrit 33.4 % (36.0-47.0) Mean Corpuscular Volume 81 fL (79-100) Mean Corpuscular Hemoglobin 27 pg (25-35) Mean Corpuscular Hemoglobin Concent 33 g/dL (31-37) Red Cell Distribution Width 15.1 % (11.5-14.5) Platelet Count 86 x10^3/uL (140-400) Neutrophils (%) (Auto) 90 % (31-73) Lymphocytes (%) (Auto) 2 % (24-48) Monocytes (%) (Auto) 5 % (0-9) Eosinophils (%) (Auto) 3 % (0-3) Basophils (%) (Auto) 0 % (0-3) Neutrophils # (Auto) 1.8 x10^3uL (1.8-7.7) Lymphocytes # (Auto) 0.0 x10^3/uL (1.0-4.8) Monocytes # (Auto) 0.1 x10^3/uL (0.0-1.1) Eosinophils # (Auto) 0.1 x10^3/uL (0.0-0.7) Basophils # (Auto) 0.0 x10^3/uL (0.0-0.2) Creatinine 0.9 mg/dL (0.6-1.0) Estimated GFR (Cockcroft-Gault) 64.3 JES FERERIRA MD Nov 27, 2018 10:05
[2018-11-27] MEDS ORDERED: LIDOCAINE 2% JELLY 6ML IN APPLICATOR. TP ONE (10:45)
[2018-11-27 11:05] VITALS: BP 131/71
--- NOTE | 2018-11-27 14:04 | PDOC ---
Infectious Disease Note Subjective Subjective pt is feeling ok ROS ROS no n/v/d/sob/ cont fever Vital Sign Vital Signs Vital Signs Date Time Temp Pulse Resp B/P (MAP) Pulse Ox O2 Delivery O2 Flow Rate FiO2 11/27/18 11:05 99.1 99 18 131/71 (91) 99 Room Air 99.1 Physical Exam PHYSICAL EXAM GENERAL: Alert, oriented female, not in any distress. VITAL SIGNS: Stable HEENT: NAD. NECK: Supple, no JVP, no lymphadenopathy. LUNGS: Clear. HEART: S1, S2 regular. ABDOMEN: Benign. EXTREMITIES: No edema or cyanosis. SKIN: The patient does have maculopapular rash all over the body, does have Port-A-Cath or some sort of central tunneled catheter in the right upper chest, which is not showing any signs of infection. Labs Lab Laboratory Tests Test 11/27/18 06:53 White Blood Count 2.0 x10^3/uL (4.0-11.0) Red Blood Count 4.13 x10^6/uL (3.50-5.40) Hemoglobin 11.0 g/dL (12.0-15.5) Hematocrit 33.4 % (36.0-47.0) Mean Corpuscular Volume 81 fL (79-100) Mean Corpuscular Hemoglobin 27 pg (25-35) Mean Corpuscular Hemoglobin Concent 33 g/dL (31-37) Red Cell Distribution Width 15.1 % (11.5-14.5) Platelet Count 86 x10^3/uL (140-400) Neutrophils (%) (Auto) 90 % (31-73) Lymphocytes (%) (Auto) 2 % (24-48) Monocytes (%) (Auto) 5 % (0-9) Eosinophils (%) (Auto) 3 % (0-3) Basophils (%) (Auto) 0 % (0-3) Neutrophils # (Auto) 1.8 x10^3uL (1.8-7.7) Lymphocytes # (Auto) 0.0 x10^3/uL (1.0-4.8) Monocytes # (Auto) 0.1 x10^3/uL (0.0-1.1) Eosinophils # (Auto) 0.1 x10^3/uL (0.0-0.7) Basophils # (Auto) 0.0 x10^3/uL (0.0-0.2) Creatinine 0.9 mg/dL (0.6-1.0) Estimated GFR (Cockcroft-Gault) 64.3 Micro Microbiology 11/25/18 Blood Culture - Preliminary, Resulted NO GROWTH AFTER 2 DAYS 11/25/18 Urine Culture - Final, Complete 11/25/18 Urine Culture Result 1 (DANIAL) - Final, Complete Objective Assessment 1. Fever. 2. Neutropenia from chemotherapy. 3. Lymphomas, on chemotherapy. 4. Hypertension. 5. Hypothyroidism. Plan Plan of Care vanc and cefepime check cultures d/w rash from viral infection or drugs, this is not guillermina syndrome, though any drug can cause this rash, so far culture neg, we can start changing drugs, dapto for vanco change cefepime to meropenem ELVIS CARMONA MD Nov 27, 2018 14:04
[2018-11-27] MEDS: MEROPENEM 500 MG in IV NORMAL SALINE 50ML 50 ML IV SCH ×2 (14:59→21:03)
[2018-11-27] MEDS ORDERED: DAPTOmycin (GENERIC) IVPB 670 MG in IV NORMAL SALINE 50ML 50 ML IV SCH (15:00)
[2018-11-27 15:03] VITALS: BP 142/60
[2018-11-27 19:56] VITALS: BP 136/74
[2018-11-27] MEDS: ENOXAPARIN 40 MG/0.4 ML SYRINGE. SQ SCH (20:05)
[2018-11-27] MEDS: LATANOPROST 0.005% OPHTH SOLUTION 2.5ML BOTTLE. OU SCH (21:03)
[2018-11-27 23:38] VITALS: BP 124/64
[2018-11-27] MEDS ORDERED: BENZOCAINE/MENTHOL LOZENGE. PO PRN (23:45)
[2018-11-28] MEDS: NYSTATIN 100,000 UNITS/ML 5 ML ORAL.SUSP. SWSW SCH ×4 (00:11→21:05)
[2018-11-28] MEDS: MEROPENEM 500 MG in IV NORMAL SALINE 50ML 50 ML IV SCH ×5 (00:16→23:13)
[2018-11-28 03:48] VITALS: BP 135/63
[2018-11-28] MEDS: ACETAMINOPHEN 325 MG TABLET. PO PRN (04:29)
[2018-11-28 05:48] LABS: CALCIUM 7.8 mg/dL (8.5-10.1); CREATININE 0.8 mg/dL (0.6-1.0); GFR 73.7
[2018-11-28 05:51] LABS: POTASSIUM 2.8 mmol/L (3.5-5.1)
[2018-11-28] MEDS: LEVOTHYROXINE 100 MCG TABLET PO SCH (06:02)
[2018-11-28 07:50] VITALS: BP 120/71
[2018-11-28] MEDS: METOPROLOL TART IMMED RELEASE 25 MG TABLET. PO SCH (08:52)
[2018-11-28] MEDS: DULoxetine HCL 30 MG CAPSULE.DR PO SCH (08:52)
[2018-11-28] MEDS: POTASSIUM CHLORIDE 10MEQ 100 ML IV SCH ×6 (08:52→15:18)
[2018-11-28] MEDS: MULTIVITAMIN with MINERAL TABLET. PO SCH (08:52)
[2018-11-28] MEDS: ASPIRIN CHEWABLE 81 MG TABLET. PO SCH (08:52)
--- NOTE | 2018-11-28 09:34 | PDOC ---
SUBJECTIVE Subjective S: Diffuse rash w/ tenderness, not itching, still fevering, Abx changed O: Physical exam: Gen.: Well-nourished and well-developed, resting in bed Lungs: Breathing comfortably with no evidence of respiratory distress Skin: Diffuse erythematous rash progressing Psychiatric: Pleasant mood and affect Labs: ANC remains >1500 Assessment and Plan: 58-year-old female with marginal zone lymphoma cycle 1 day 12 bendamustine and rituximab admitted for fever up to 103 prior to admit, w/ rash since 11/26 Fever: cx neg, on antibiotics, ID is involved, appreciate multidisciplinary assistance DVT prophylaxis: Lovenox, would hold if plts <50 Marginal zone lymphoma: Chemotherapy therapy on hold for the moment, consider G- CSF as needed though not neutropenic at this time Rash: drug, Abx? fever bendamustine vs other? changing/holding meds as able Dispo: after improvement, to f/u w/ Dr Luis as outpt Thank you kindly and please do not hesitate to call with questions. OBJECTIVE Vital Signs Vital Signs Date Time Temp Pulse Resp B/P (MAP) Pulse Ox O2 Delivery O2 Flow Rate FiO2 11/28/18 08:52 103 120/71 11/28/18 07:50 98.4 103 18 120/71 (87) 97 Room Air 98.4 11/28/18 03:48 101.9 119 18 135/63 (87) 95 Room Air 101.9 11/27/18 23:38 99.0 113 18 124/64 (84) 96 Room Air 99.0 11/27/18 20:00 Room Air 11/27/18 19:56 99.6 117 20 136/74 (94) 100 Room Air 99.6 11/27/18 15:03 101.5 105 18 142/60 (87) 97 Room Air 101.5 11/27/18 11:05 99.1 99 18 131/71 (91) 99 Room Air 99.1 I & O Intake and Output 11/28/18 06:59 Intake Total 2240 ml Balance 2240 ml Intake Oral 2240 ml # Voids 4 COMMENT Lab Laboratory Tests Test 11/28/18 05:18 Sodium Level 141 mmol/L (136-145) Potassium Level 2.8 mmol/L (3.5-5.1) Chloride Level 104 mmol/L (98-107) Carbon Dioxide Level 28 mmol/L (21-32) Anion Gap 9 (6-14) Blood Urea Nitrogen 6 mg/dL (7-20) Creatinine 0.8 mg/dL (0.6-1.0) Estimated GFR (Cockcroft-Gault) 73.7 Glucose Level 118 mg/dL (70-99) Calcium Level 7.8 mg/dL (8.5-10.1) JES FERREIRA MD Nov 28, 2018 09:34
[2018-11-28 10:02] LABS: BASO % 0 % (0-3); EOS # 0.1 x10^3/uL (0.0-0.7); EOS % 4 % (0-3); HEMATOCRIT 29.9 % (36.0-47.0); HEMOGLOBIN 9.8 g/dL (12.0-15.5); LYMPH # 0.1 x10^3/uL (1.0-4.8); LYMPH % 5 % (24-48); MEAN CORPUSCULAR HEMOGLOBIN 27 pg (25-35); MEAN CORPUSCULAR HGB CONC 33 g/dL (31-37); MEAN CORPUSCULAR VOLUME 82 fL (79-100); MONO # 0.1 x10^3/uL (0.0-1.1); MONO % 7 % (0-9); NEUT # 1.4 x10^3uL (1.8-7.7); NEUT % 85 % (31-73); PLATELET COUNT 89 x10^3/uL (140-400); RED BLOOD COUNT 3.67 x10^6/uL (3.50-5.40)
[2018-11-28 10:05] LABS: WHITE BLOOD COUNT 1.7 x10^3/uL (4.0-11.0)
--- NOTE | 2018-11-28 10:21 | PDOC ---
Infectious Disease Note Subjective Subjective pt is feeling better, though cont to have rash, and fever ROS ROS no n/v/d/sob/headache Vital Sign Vital Signs Vital Signs Date Time Temp Pulse Resp B/P (MAP) Pulse Ox O2 Delivery O2 Flow Rate FiO2 11/28/18 08:52 103 120/71 11/28/18 08:00 Room Air 11/28/18 07:50 98.4 18 97 98.4 Physical Exam PHYSICAL EXAM GENERAL: Alert, oriented female, not in any distress. VITAL SIGNS: Stable HEENT: NAD. NECK: Supple, no JVP, no lymphadenopathy. LUNGS: Clear. HEART: S1, S2 regular. ABDOMEN: Benign. EXTREMITIES: No edema or cyanosis. SKIN: The patient does have maculopapular rash all over the body, does have Port-A-Cath or some sort of central tunneled catheter in the right upper chest, which is not showing any signs of infection. Labs Lab Laboratory Tests Test 11/28/18 05:18 White Blood Count 1.7 x10^3/uL (4.0-11.0) Red Blood Count 3.67 x10^6/uL (3.50-5.40) Hemoglobin 9.8 g/dL (12.0-15.5) Hematocrit 29.9 % (36.0-47.0) Mean Corpuscular Volume 82 fL (79-100) Mean Corpuscular Hemoglobin 27 pg (25-35) Mean Corpuscular Hemoglobin Concent 33 g/dL (31-37) Red Cell Distribution Width 15.0 % (11.5-14.5) Platelet Count 89 x10^3/uL (140-400) Neutrophils (%) (Auto) 85 % (31-73) Lymphocytes (%) (Auto) 5 % (24-48) Monocytes (%) (Auto) 7 % (0-9) Eosinophils (%) (Auto) 4 % (0-3) Basophils (%) (Auto) 0 % (0-3) Neutrophils # (Auto) 1.4 x10^3uL (1.8-7.7) Lymphocytes # (Auto) 0.1 x10^3/uL (1.0-4.8) Monocytes # (Auto) 0.1 x10^3/uL (0.0-1.1) Eosinophils # (Auto) 0.1 x10^3/uL (0.0-0.7) Basophils # (Auto) 0.0 x10^3/uL (0.0-0.2) Sodium Level 141 mmol/L (136-145) Potassium Level 2.8 mmol/L (3.5-5.1) Chloride Level 104 mmol/L (98-107) Carbon Dioxide Level 28 mmol/L (21-32) Anion Gap 9 (6-14) Blood Urea Nitrogen 6 mg/dL (7-20) Creatinine 0.8 mg/dL (0.6-1.0) Estimated GFR (Cockcroft-Gault) 73.7 Glucose Level 118 mg/dL (70-99) Calcium Level 7.8 mg/dL (8.5-10.1) Micro Microbiology 11/25/18 Blood Culture - Preliminary, Resulted NO GROWTH AFTER 2 DAYS 11/25/18 Urine Culture - Final, Complete 11/25/18 Urine Culture Result 1 (DANIAL) - Final, Complete Objective Assessment 1. Fever. 2. Neutropenia from chemotherapy. 3. Lymphomas, on chemotherapy. 4. Hypertension. 5. Hypothyroidism. Plan Plan of Care check cultures rash from viral infection or drugs, this is not guillermina syndrome, though any drug can cause this rash including her chemotherapy, so far culture neg, will d/c dapto cont meropenem, soon to d/c that ( 101.9 fever this am ) d/w dr Ballesteros , d/w ELVIS Page MD Nov 28, 2018 10:21
[2018-11-28 10:58] VITALS: BP 111/65
[2018-11-28 15:00] VITALS: BP 122/63
--- NOTE | 2018-11-28 15:16 | PDOC ---
PROGRESS NOTES Chief Complaint Chief Complaint sepsis neutropenic fever dry rash lymphoma on chemo, marginal zone lymphoma obesity, BMI 36 History of Present Illness History of Present Illness drug rash, give benadryl, abd changed to cefepime, pcn allergy noted, ID consult following cont current PO intake a little better today Vitals Vitals Vital Signs Date Time Temp Pulse Resp B/P (MAP) Pulse Ox O2 Delivery O2 Flow Rate FiO2 11/28/18 15:00 99.0 99 18 122/63 (82) 98 Room Air 99.0 Physical Exam Physical Exam GENERAL: Alert, oriented female, not in any distress. VITAL SIGNS: Stable HEENT: NAD. NECK: Supple, no JVP, no lymphadenopathy. LUNGS: Clear. HEART: S1, S2 regular. ABDOMEN: Benign. EXTREMITIES: No edema or cyanosis. SKIN: The patient does have maculopapular rash all over the body, does have Port-A-Cath or some sort of central tunneled catheter in the right upper chest, which is not showing any signs of infection. General: Alert, Oriented X3, Cooperative, No acute distress Lungs: Clear Abdomen: Normal bowel sounds, Soft Extremities: No cyanosis Skin: No breakdown Labs LABS Laboratory Tests Test 11/28/18 05:18 White Blood Count 1.7 x10^3/uL (4.0-11.0) Red Blood Count 3.67 x10^6/uL (3.50-5.40) Hemoglobin 9.8 g/dL (12.0-15.5) Hematocrit 29.9 % (36.0-47.0) Mean Corpuscular Volume 82 fL (79-100) Mean Corpuscular Hemoglobin 27 pg (25-35) Mean Corpuscular Hemoglobin Concent 33 g/dL (31-37) Red Cell Distribution Width 15.0 % (11.5-14.5) Platelet Count 89 x10^3/uL (140-400) Neutrophils (%) (Auto) 85 % (31-73) Lymphocytes (%) (Auto) 5 % (24-48) Monocytes (%) (Auto) 7 % (0-9) Eosinophils (%) (Auto) 4 % (0-3) Basophils (%) (Auto) 0 % (0-3) Neutrophils # (Auto) 1.4 x10^3uL (1.8-7.7) Lymphocytes # (Auto) 0.1 x10^3/uL (1.0-4.8) Monocytes # (Auto) 0.1 x10^3/uL (0.0-1.1) Eosinophils # (Auto) 0.1 x10^3/uL (0.0-0.7) Basophils # (Auto) 0.0 x10^3/uL (0.0-0.2) Sodium Level 141 mmol/L (136-145) Potassium Level 2.8 mmol/L (3.5-5.1) Chloride Level 104 mmol/L (98-107) Carbon Dioxide Level 28 mmol/L (21-32) Anion Gap 9 (6-14) Blood Urea Nitrogen 6 mg/dL (7-20) Creatinine 0.8 mg/dL (0.6-1.0) Estimated GFR (Cockcroft-Gault) 73.7 Glucose Level 118 mg/dL (70-99) Calcium Level 7.8 mg/dL (8.5-10.1) Assessment and Plan Assessmemt and Plan Problems Medical Problems: (1) Fever Status: Acute (2) Sepsis Status: Acute Comment Review of Relevant I have reviewed the following items kike (where applicable) has been applied. Labs Laboratory Tests Test 11/27/18 06:53 11/28/18 05:18 White Blood Count 2.0 x10^3/uL (4.0-11.0) 1.7 x10^3/uL (4.0-11.0) Red Blood Count 4.13 x10^6/uL (3.50-5.40) 3.67 x10^6/uL (3.50-5.40) Hemoglobin 11.0 g/dL (12.0-15.5) 9.8 g/dL (12.0-15.5) Hematocrit 33.4 % (36.0-47.0) 29.9 % (36.0-47.0) Mean Corpuscular Volume 81 fL (79-100) 82 fL (79-100) Mean Corpuscular Hemoglobin 27 pg (25-35) 27 pg (25-35) Mean Corpuscular Hemoglobin Concent 33 g/dL (31-37) 33 g/dL (31-37) Red Cell Distribution Width 15.1 % (11.5-14.5) 15.0 % (11.5-14.5) Platelet Count 86 x10^3/uL (140-400) 89 x10^3/uL (140-400) Neutrophils (%) (Auto) 90 % (31-73) 85 % (31-73) Lymphocytes (%) (Auto) 2 % (24-48) 5 % (24-48) Monocytes (%) (Auto) 5 % (0-9) 7 % (0-9) Eosinophils (%) (Auto) 3 % (0-3) 4 % (0-3) Basophils (%) (Auto) 0 % (0-3) 0 % (0-3) Neutrophils # (Auto) 1.8 x10^3uL (1.8-7.7) 1.4 x10^3uL (1.8-7.7) Lymphocytes # (Auto) 0.0 x10^3/uL (1.0-4.8) 0.1 x10^3/uL (1.0-4.8) Monocytes # (Auto) 0.1 x10^3/uL (0.0-1.1) 0.1 x10^3/uL (0.0-1.1) Eosinophils # (Auto) 0.1 x10^3/uL (0.0-0.7) 0.1 x10^3/uL (0.0-0.7) Basophils # (Auto) 0.0 x10^3/uL (0.0-0.2) 0.0 x10^3/uL (0.0-0.2) Creatinine 0.9 mg/dL (0.6-1.0) 0.8 mg/dL (0.6-1.0) Estimated GFR (Cockcroft-Gault) 64.3 73.7 Sodium Level 141 mmol/L (136-145) Potassium Level 2.8 mmol/L (3.5-5.1) Chloride Level 104 mmol/L (98-107) Carbon Dioxide Level 28 mmol/L (21-32) Anion Gap 9 (6-14) Blood Urea Nitrogen 6 mg/dL (7-20) Glucose Level 118 mg/dL (70-99) Calcium Level 7.8 mg/dL (8.5-10.1) Laboratory Tests Test 11/28/18 05:18 White Blood Count 1.7 x10^3/uL (4.0-11.0) Red Blood Count 3.67 x10^6/uL (3.50-5.40) Hemoglobin 9.8 g/dL (12.0-15.5) Hematocrit 29.9 % (36.0-47.0) Mean Corpuscular Volume 82 fL (79-100) Mean Corpuscular Hemoglobin 27 pg (25-35) Mean Corpuscular Hemoglobin Concent 33 g/dL (31-37) Red Cell Distribution Width 15.0 % (11.5-14.5) Platelet Count 89 x10^3/uL (140-400) Neutrophils (%) (Auto) 85 % (31-73) Lymphocytes (%) (Auto) 5 % (24-48) Monocytes (%) (Auto) 7 % (0-9) Eosinophils (%) (Auto) 4 % (0-3) Basophils (%) (Auto) 0 % (0-3) Neutrophils # (Auto) 1.4 x10^3uL (1.8-7.7) Lymphocytes # (Auto) 0.1 x10^3/uL (1.0-4.8) Monocytes # (Auto) 0.1 x10^3/uL (0.0-1.1) Eosinophils # (Auto) 0.1 x10^3/uL (0.0-0.7) Basophils # (Auto) 0.0 x10^3/uL (0.0-0.2) Sodium Level 141 mmol/L (136-145) Potassium Level 2.8 mmol/L (3.5-5.1) Chloride Level 104 mmol/L (98-107) Carbon Dioxide Level 28 mmol/L (21-32) Anion Gap 9 (6-14) Blood Urea Nitrogen 6 mg/dL (7-20) Creatinine 0.8 mg/dL (0.6-1.0) Estimated GFR (Cockcroft-Gault) 73.7 Glucose Level 118 mg/dL (70-99) Calcium Level 7.8 mg/dL (8.5-10.1) Microbiology 11/27/18 Blood Culture - Preliminary, Resulted NO GROWTH AFTER 1 DAY 11/25/18 Urine Culture - Final, Complete 11/25/18 Urine Culture Result 1 (DANIAL) - Final, Complete Medications Current Medications Vancomycin HCl (Vanco Per Pharmacy) 1 each 1X ONCE MC Last administered on 13:00; Start 11/25/18 at 13:00; Stop 11/25/18 at 13:08; Status DC Levofloxacin/ Dextrose 150 ml @ 100 mls/hr 1X ONCE IV Last administered on 09/03at 14:47; Start 11/25/18 at 13:00; Stop 11/25/18 at 14:29; Status DC Sodium Chloride 1,000 ml @ 166.667 mls/hr Q6H IV Last administered on 09:13; Start 11/25/18 at 13:00; Stop 11/26/18 at 09:08; Status DC Acetaminophen (Tylenol) 1,000 mg 1X ONCE PO Last administered on 11/25/18 13: 20; Start 11/25/18 at 13:00; Stop 11/25/18 at 13:06; Status DC Vancomycin HCl 2 gm/Sodium Chloride 500 ml @ 250 mls/hr 1X ONCE IV Last administered on 11/25/18 16:30; Start 11/25/18 at 13:15; Stop 11/25/18 at 15:14 ; Status DC Ondansetron HCl (Zofran) 4 mg PRN Q8HRS PRN IV NAUSEA/VOMITING Last administered on 11/25/18at 17:02; Start 11/25/18 at 15:45; Stop 11/26/18 at 15:44 ; Status DC Fentanyl Citrate (Fentanyl 2ml Vial) 50 mcg PRN Q1HR PRN IV PAIN; Start at 15:45; Stop 11/26/18 at 15:44; Status DC Acetaminophen (Tylenol) 650 mg PRN Q4HRS PRN PO FEVER Last administered on 11/26 09:13; Start 11/25/18 at 15:45; Stop 11/26/18 at 15:44; Status DC Sodium Chloride 1,000 ml @ 125 mls/hr 1X ONCE IV ; Start 11/25/18 at 15:45; Stop 11/25/18 at 23:44; Status DC Sodium Chloride 1,000 ml @ 1,980 mls/hr Q31M IV Last administered on at 20:51; Start 11/25/18 at 20:20; Stop 11/25/18 at 21:20; Status DC Sodium Chloride 500 ml @ 1,000 mls/hr PRN Q30MIN PRN IV SEE COMMENTS; Start at 20:30 Levofloxacin/ Dextrose 100 ml @ 100 mls/hr Q24H IV Last administered on at 21:26; Start 11/25/18 at 21:00; Stop 11/26/18 at 11:30; Status DC Aspirin (Children'S Aspirin) 81 mg DAILY PO Last administered on 11/28/18 08: 52; Start 11/26/18 at 09:00 Duloxetine HCl (Cymbalta) 30 mg DAILY PO Last administered on 11/28/18 08:52; Start 11/26/18 at 09:00 Levothyroxine Sodium (Synthroid) 100 mcg DAILY06 PO Last administered on 06:02; Start 11/26/18 at 06:00 Metoprolol Tartrate (Lopressor) 25 mg DAILY PO Last administered on 11/28/18 08:52; Start 11/26/18 at 09:00 Non-Formulary Medication (Biotin ) 10,000 mcg DAILY PO ; Start 11/26/18 at 09:00 ; Status UNV Latanoprost (Xalatan) 1 drop QHS OU Last administered on 11/27/18 21:03; Start 11/25/18 at 21:00 Multivitamins (Thera M Plus) 1 tab DAILY PO Last administered on 11/28/18 08: 52; Start 11/26/18 at 09:00 Enoxaparin Sodium (Lovenox 40mg Syringe) 40 mg Q24H SQ ; Start 11/25/18 at 21:00 Ibuprofen (Motrin) 800 mg 1X ONCE PO Last administered on 11/26/18 11:20; Start 11/26/18 at 11:30; Stop 11/26/18 at 11:31; Status DC Cefepime HCl (Maxipime) 1 gm Q12HR IVP Last administered on 11/27/18 08:35; Start 11/26/18 at 12:00; Stop 11/27/18 at 14:05; Status DC Diphenhydramine HCl (Benadryl) 25 mg PRN Q12HR PRN PO ITCHING Last administered on 11/27/18at 10:59; Start 11/26/18 at 13:30 Diphenhydramine HCl (Benadryl) 50 mg 1X ONCE PO Last administered on at 14:45; Start 11/26/18 at 13:45; Stop 11/26/18 at 13:46; Status DC Vancomycin HCl 1.5 gm/Sodium Chloride 500 ml @ 250 mls/hr Q12H IV Last administered on 11/27/18at 02:41; Start 11/26/18 at 15:00; Stop 11/27/18 at 14:05 ; Status DC Vancomycin HCl (Vanco Per Pharmacy) 1 each PRN DAILY PRN MC SEE COMMENTS Last administered on 11/26/18at 14:38; Start 11/26/18 at 14:45; Stop 11/27/18 at 14:11 ; Status DC Vancomycin HCl (Vancomycin Trough Level) 1 each 1X ONCE MC ; Start 11/28/18 at 02:30; Stop 11/28/18 at 02:30; Status DC Acetaminophen (Tylenol) 650 mg PRN Q4HRS PRN PO fever Last administered on 11/28at 04:29; Start 11/26/18 at 18:00 Lidocaine HCl (Glydo (Lidocaine) Jelly) 1 ger 1X ONCE TP Last administered on 11/27/18at 10:58; Start 11/27/18 at 10:45; Stop 11/27/18 at 10:46; Status DC Non-Formulary Medication 1 ea Q3DAYS TP ; Start 11/30/18 at 09:00; Status UNV Daptomycin 670 mg/ Sodium Chloride 50 ml @ 100 mls/hr Q24H IV Last administered on 11/27/18at 15:57; Start 11/27/18 at 15:00; Stop 11/28/18 at 10:22 ; Status DC Meropenem 500 mg/ Sodium Chloride 50 ml @ 100 mls/hr Q6HRS IV Last administered on 11/28/18at 04:30; Start 11/27/18 at 14:30 Nystatin (Nystatin Oral Susp) 5 ml TID SWSW Last administered on 11/28/18at 14: 01; Start 11/28/18 at 00:00 Throat Lozenges (Cepacol Sore Throat Lozenge) 1 daniel TID PRN PRN PO SORE THROAT Last administered on 11/28/18at 00:12; Start 11/27/18 at 23:45 Potassium Chloride/Water 100 ml @ 100 mls/hr Q1H IV Last administered on at 14:01; Start 11/28/18 at 07:30; Stop 11/28/18 at 13:29; Status DC Active Scripts Active Reported Biotin 10,000 Mcg Capsule 10,000 Mcg PO DAILY Multivitamins (Multivitamin) 1 Each Tablet 1 Each PO DAILY Metoprolol Tartrate 25 Mg Tablet 25 Mg PO DAILY Cymbalta (Duloxetine Hcl) 30 Mg Capsule.dr 1 Cap PO DAILY Aspirin 81 Mg Tab.chew 1 Tab PO DAILY Synthroid (Levothyroxine Sodium) 88 Mcg Tablet 100 Mcg PO DAILY Climara (Estradiol) 1 Each Patch.tdwk Latanoprost 2.5 Ml Drops 1 Drop EACHEYE QHS Vitals/I & O Vital Sign - Last 24 Hours 11/27/18 11/27/18 11/27/18 11/28/18 19:56 20:00 23:38 03:48 Temp 99.6 99.0 101.9 99.6 99.0 101.9 Pulse 117 113 119 Resp 20 18 18 B/P (MAP) 136/74 (94) 124/64 (84) 135/63 (87) Pulse Ox 100 96 95 O2 Delivery Room Air Room Air Room Air Room Air 11/28/18 11/28/18 11/28/18 11/28/18 07:50 08:00 08:52 10:58 Temp 98.4 98.4 98.4 98.4 Pulse 103 103 89 Resp 18 18 B/P (MAP) 120/71 (87) 120/71 111/65 (80) Pulse Ox 97 95 O2 Delivery Room Air Room Air Room Air 11/28/18 15:00 Temp 99.0 99.0 Pulse 99 Resp 18 B/P (MAP) 122/63 (82) Pulse Ox 98 O2 Delivery Room Air Intake and Output 11/27/18 11/27/18 11/28/18 15:00 23:00 07:00 Intake Total 480 ml 960 ml 800 ml Balance 480 ml 960 ml 800 ml MARVA MACEDO MD Nov 28, 2018:16
--- NOTE | 2018-11-28 19:45 | NUR ---
not charted by day shift Addendum: 11/28/18 at 1946 by ARASELI REDD RN Amended: Links added.
[2018-11-28 19:50] VITALS: BP 110/66
[2018-11-28] MEDS ORDERED: ESTRADIOL 0.05 MG TP SCH (20:00)
[2018-11-28] MEDS: ENOXAPARIN 40 MG/0.4 ML SYRINGE. SQ SCH (21:00)
[2018-11-28] MEDS: LATANOPROST 0.005% OPHTH SOLUTION 2.5ML BOTTLE. OU SCH (21:01)
[2018-11-28 23:15] VITALS: BP 126/61
[2018-11-29 03:03] VITALS: BP 138/75
[2018-11-29] MEDS: MEROPENEM 500 MG in IV NORMAL SALINE 50ML 50 ML IV SCH ×4 (06:10→23:03)
[2018-11-29] MEDS: LEVOTHYROXINE 100 MCG TABLET PO SCH (06:10)
[2018-11-29 07:47] VITALS: BP 120/68
[2018-11-29] MEDS: ASPIRIN CHEWABLE 81 MG TABLET. PO SCH (09:28)
[2018-11-29] MEDS: MULTIVITAMIN with MINERAL TABLET. PO SCH (09:28)
[2018-11-29] MEDS: NYSTATIN 100,000 UNITS/ML 5 ML ORAL.SUSP. SWSW SCH ×3 (09:28→20:12)
[2018-11-29] MEDS: METOPROLOL TART IMMED RELEASE 25 MG TABLET. PO SCH (09:29)
[2018-11-29] MEDS: DULoxetine HCL 30 MG CAPSULE.DR PO SCH (09:29)
[2018-11-29 11:41] VITALS: BP 122/79
[2018-11-29] MEDS ORDERED: POTASSIUM CHLORIDE 20 MEQ TABLET.ER. PO ONE (12:15)
[2018-11-29 13:53] LABS: BASO % 0 % (0-3); EOS # 0.1 x10^3/uL (0.0-0.7); EOS % 5 % (0-3); HEMOGLOBIN 9.8 g/dL (12.0-15.5); LYMPH # 0.1 x10^3/uL (1.0-4.8); LYMPH % 8 % (24-48); MEAN CORPUSCULAR HEMOGLOBIN 26 pg (25-35); MEAN CORPUSCULAR HGB CONC 33 g/dL (31-37); MEAN CORPUSCULAR VOLUME 81 fL (79-100); MONO # 0.1 x10^3/uL (0.0-1.1); MONO % 9 % (0-9); NEUT # 1.3 x10^3uL (1.8-7.7); NEUT % 78 % (31-73); PLATELET COUNT 114 x10^3/uL (140-400); RED BLOOD COUNT 3.72 x10^6/uL (3.50-5.40); RED CELL DISTRIBUTION WIDTH 15.4 % (11.5-14.5)
--- NOTE | 2018-11-29 13:55 | PDOC ---
PROGRESS NOTES Chief Complaint Chief Complaint sepsis neutropenic fever dry rash lymphoma on chemo, marginal zone lymphoma obesity, BMI 36 hypokalemia, History of Present Illness History of Present Illness rash better, vitals improved, stronger today give additional K+ cont current PO intake a little better today Vitals Vitals Vital Signs Date Time Temp Pulse Resp B/P (MAP) Pulse Ox O2 Delivery O2 Flow Rate FiO2 11/29/18 11:41 98.2 88 17 122/79 (93) 98 Room Air 98.2 Physical Exam Physical Exam GENERAL: Alert, oriented female, not in any distress. VITAL SIGNS: Stable HEENT: NAD. NECK: Supple, no JVP, no lymphadenopathy. LUNGS: Clear. HEART: S1, S2 regular. ABDOMEN: Benign. EXTREMITIES: No edema or cyanosis. SKIN: The patient does have maculopapular rash all over the body, does have Port-A-Cath or some sort of central tunneled catheter in the right upper chest, which is not showing any signs of infection. General: Alert, Oriented X3, Cooperative, No acute distress Lungs: Clear Abdomen: Normal bowel sounds, Soft Extremities: No cyanosis Skin: No breakdown Review of Systems Review of Systems weakness, feels hot slept better Assessment and Plan Assessmemt and Plan Problems Medical Problems: (1) Fever Status: Acute (2) Sepsis Status: Acute Comment Review of Relevant I have reviewed the following items kike (where applicable) has been applied. Labs Laboratory Tests Test 11/28/18 05:18 White Blood Count 1.7 x10^3/uL (4.0-11.0) Red Blood Count 3.67 x10^6/uL (3.50-5.40) Hemoglobin 9.8 g/dL (12.0-15.5) Hematocrit 29.9 % (36.0-47.0) Mean Corpuscular Volume 82 fL (79-100) Mean Corpuscular Hemoglobin 27 pg (25-35) Mean Corpuscular Hemoglobin Concent 33 g/dL (31-37) Red Cell Distribution Width 15.0 % (11.5-14.5) Platelet Count 89 x10^3/uL (140-400) Neutrophils (%) (Auto) 85 % (31-73) Lymphocytes (%) (Auto) 5 % (24-48) Monocytes (%) (Auto) 7 % (0-9) Eosinophils (%) (Auto) 4 % (0-3) Basophils (%) (Auto) 0 % (0-3) Neutrophils # (Auto) 1.4 x10^3uL (1.8-7.7) Lymphocytes # (Auto) 0.1 x10^3/uL (1.0-4.8) Monocytes # (Auto) 0.1 x10^3/uL (0.0-1.1) Eosinophils # (Auto) 0.1 x10^3/uL (0.0-0.7) Basophils # (Auto) 0.0 x10^3/uL (0.0-0.2) Sodium Level 141 mmol/L (136-145) Potassium Level 2.8 mmol/L (3.5-5.1) Chloride Level 104 mmol/L (98-107) Carbon Dioxide Level 28 mmol/L (21-32) Anion Gap 9 (6-14) Blood Urea Nitrogen 6 mg/dL (7-20) Creatinine 0.8 mg/dL (0.6-1.0) Estimated GFR (Cockcroft-Gault) 73.7 Glucose Level 118 mg/dL (70-99) Calcium Level 7.8 mg/dL (8.5-10.1) Microbiology 11/27/18 Blood Culture - Preliminary, Resulted NO GROWTH AFTER 2 DAYS 11/25/18 Urine Culture - Final, Complete 11/25/18 Urine Culture Result 1 (DANIAL) - Final, Complete Medications Current Medications Vancomycin HCl (Vanco Per Pharmacy) 1 each 1X ONCE MC Last administered on 09/03at 13:00; Start 11/25/18 at 13:00; Stop 11/25/18 at 13:08; Status DC Levofloxacin/ Dextrose 150 ml @ 100 mls/hr 1X ONCE IV Last administered on 09/03at 14:47; Start 11/25/18 at 13:00; Stop 11/25/18 at 14:29; Status DC Sodium Chloride 1,000 ml @ 166.667 mls/hr Q6H IV Last administered on at 09:13; Start 11/25/18 at 13:00; Stop 11/26/18 at 09:08; Status DC Acetaminophen (Tylenol) 1,000 mg 1X ONCE PO Last administered on 11/25/18at 13: 20; Start 11/25/18 at 13:00; Stop 11/25/18 at 13:06; Status DC Vancomycin HCl 2 gm/Sodium Chloride 500 ml @ 250 mls/hr 1X ONCE IV Last administered on 11/25/18 16:30; Start 11/25/18 at 13:15; Stop 11/25/18 at 15:14 ; Status DC Ondansetron HCl (Zofran) 4 mg PRN Q8HRS PRN IV NAUSEA/VOMITING Last administered on 11/25/18at 17:02; Start 11/25/18 at 15:45; Stop 11/26/18 at 15:44 ; Status DC Fentanyl Citrate (Fentanyl 2ml Vial) 50 mcg PRN Q1HR PRN IV PAIN; Start at 15:45; Stop 11/26/18 at 15:44; Status DC Acetaminophen (Tylenol) 650 mg PRN Q4HRS PRN PO FEVER Last administered on 11/26 09:13; Start 11/25/18 at 15:45; Stop 11/26/18 at 15:44; Status DC Sodium Chloride 1,000 ml @ 125 mls/hr 1X ONCE IV ; Start 11/25/18 at 15:45; Stop 11/25/18 at 23:44; Status DC Sodium Chloride 1,000 ml @ 1,980 mls/hr Q31M IV Last administered on at 20:51; Start 11/25/18 at 20:20; Stop 11/25/18 at 21:20; Status DC Sodium Chloride 500 ml @ 1,000 mls/hr PRN Q30MIN PRN IV SEE COMMENTS; Start at 20:30 Levofloxacin/ Dextrose 100 ml @ 100 mls/hr Q24H IV Last administered on 21:26; Start 11/25/18 at 21:00; Stop 11/26/18 at 11:30; Status DC Aspirin (Children'S Aspirin) 81 mg DAILY PO Last administered on 11/29/18 09: 28; Start 11/26/18 at 09:00 Duloxetine HCl (Cymbalta) 30 mg DAILY PO Last administered on 11/29/18at 09:29; Start 11/26/18 at 09:00 Levothyroxine Sodium (Synthroid) 100 mcg DAILY06 PO Last administered on 06:10; Start 11/26/18 at 06:00 Metoprolol Tartrate (Lopressor) 25 mg DAILY PO Last administered on 11/29/18 09:29; Start 11/26/18 at 09:00 Non-Formulary Medication (Biotin ) 10,000 mcg DAILY PO ; Start 11/26/18 at 09:00 ; Status UNV Latanoprost (Xalatan) 1 drop QHS OU Last administered on 11/28/18 21:01; Start 11/25/18 at 21:00 Multivitamins (Thera M Plus) 1 tab DAILY PO Last administered on 11/29/18 09: 28; Start 11/26/18 at 09:00 Enoxaparin Sodium (Lovenox 40mg Syringe) 40 mg Q24H SQ ; Start 11/25/18 at 21:00 Ibuprofen (Motrin) 800 mg 1X ONCE PO Last administered on 11/26/18 11:20; Start 11/26/18 at 11:30; Stop 11/26/18 at 11:31; Status DC Cefepime HCl (Maxipime) 1 gm Q12HR IVP Last administered on 11/27/18 08:35; Start 11/26/18 at 12:00; Stop 11/27/18 at 14:05; Status DC Diphenhydramine HCl (Benadryl) 25 mg PRN Q12HR PRN PO ITCHING Last administered on 11/27/18at 10:59; Start 11/26/18 at 13:30 Diphenhydramine HCl (Benadryl) 50 mg 1X ONCE PO Last administered on at 14:45; Start 11/26/18 at 13:45; Stop 11/26/18 at 13:46; Status DC Vancomycin HCl 1.5 gm/Sodium Chloride 500 ml @ 250 mls/hr Q12H IV Last administered on 11/27/18 02:41; Start 11/26/18 at 15:00; Stop 11/27/18 at 14:05 ; Status DC Vancomycin HCl (Vanco Per Pharmacy) 1 each PRN DAILY PRN MC SEE COMMENTS Last administered on 11/26/18 14:38; Start 11/26/18 at 14:45; Stop 11/27/18 at 14:11 ; Status DC Vancomycin HCl (Vancomycin Trough Level) 1 each 1X ONCE MC ; Start 11/28/18 at 02:30; Stop 11/28/18 at 02:30; Status DC Acetaminophen (Tylenol) 650 mg PRN Q4HRS PRN PO fever Last administered on 11/28at 04:29; Start 11/26/18 at 18:00 Lidocaine HCl (Glydo (Lidocaine) Jelly) 1 ger 1X ONCE TP Last administered on 11/27/18at 10:58; Start 11/27/18 at 10:45; Stop 11/27/18 at 10:46; Status DC Non-Formulary Medication 1 ea WEEKLY TP Last administered on 11/28/18at 20:58; Start 11/28/18 at 20:00 Daptomycin 670 mg/ Sodium Chloride 50 ml @ 100 mls/hr Q24H IV Last administered on 11/27/18at 15:57; Start 11/27/18 at 15:00; Stop 11/28/18 at 10:22 ; Status DC Meropenem 500 mg/ Sodium Chloride 50 ml @ 100 mls/hr Q6HRS IV Last administered on 11/29/18at 06:10; Start 11/27/18 at 14:30 Nystatin (Nystatin Oral Susp) 5 ml TID SWSW Last administered on 11/29/18at 09: 28; Start 11/28/18 at 00:00 Throat Lozenges (Cepacol Sore Throat Lozenge) 1 daniel TID PRN PRN PO SORE THROAT Last administered on 11/28/18at 00:12; Start 11/27/18 at 23:45 Potassium Chloride/Water 100 ml @ 100 mls/hr Q1H IV Last administered on at 15:18; Start 11/28/18 at 07:30; Stop 11/28/18 at 13:29; Status DC Potassium Chloride (Klor-Con) 20 meq 1X ONCE PO ; Start 11/29/18 at 12:15; Stop 11/29/18 at 12:16; Status DC Active Scripts Active Reported Biotin 10,000 Mcg Capsule 10,000 Mcg PO DAILY Multivitamins (Multivitamin) 1 Each Tablet 1 Each PO DAILY Metoprolol Tartrate 25 Mg Tablet 25 Mg PO DAILY Cymbalta (Duloxetine Hcl) 30 Mg Capsule. 1 Cap PO DAILY Aspirin 81 Mg Tab.chew 1 Tab PO DAILY Synthroid (Levothyroxine Sodium) 88 Mcg Tablet 100 Mcg PO DAILY Climara (Estradiol) 1 Each Patch.tdwk Latanoprost 2.5 Ml Drops 1 Drop [facility] Vitals/I & O Vital Sign - Last 24 Hours 11/28/18 11/28/18 11/28/18 11/28/18 15:00 19:47 19:50 23:15 Temp 99.0 99.0 100.1 99.0 99.0 100.1 Pulse 99 104 109 Resp 18 20 20 B/P (MAP) 122/63 (82) 110/66 (81) 126/61 (82) Pulse Ox 98 100 97 O2 Delivery Room Air Room Air Room Air Room Air 11/29/18 11/29/18 11/29/18 11/29/18 03:03 07:47 08:00 09:29 Temp 99.1 98.4 99.1 98.4 Pulse 105 87 87 Resp 20 16 B/P (MAP) 138/75 (96) 120/68 (85) 120/68 Pulse Ox 100 97 O2 Delivery Room Air Room Air Room Air 11/29/18 11:41 Temp 98.2 98.2 Pulse 88 Resp 17 B/P (MAP) 122/79 (93) Pulse Ox 98 O2 Delivery Room Air Intake and Output 11/28/18 11/28/18 11/29/18 15:00 23:00 07:00 Intake Total 600 ml 1400 ml 360 ml Balance 600 ml 1400 ml 360 ml MARVA MACEDO MD Nov 29, 2018 13:55
[2018-11-29 13:57] LABS: WHITE BLOOD COUNT 1.7 x10^3/uL (4.0-11.0)
[2018-11-29 14:03] LABS: ALBUMIN 2.7 g/dL (3.4-5.0); ALBUMIN/GLOBULIN RATIO 0.9 (1.0-1.7); CALCIUM 8.1 mg/dL (8.5-10.1); CREATININE 0.8 mg/dL (0.6-1.0); GFR 73.7; POTASSIUM 3.4 mmol/L (3.5-5.1); TOTAL BILIRUBIN 0.6 mg/dL (0.2-1.0); TOTAL PROTEIN 5.8 g/dL (6.4-8.2)
[2018-11-29 15:00] VITALS: BP 135/76
--- NOTE | 2018-11-29 17:36 | PDOC ---
Infectious Disease Note Subjective Subjective Feeling much better, appetite improving and has been walking Rash is fading Mouth dry Tmax 100.1 Denies N/V/D/cough/SOA Vital Sign Vital Signs Vital Signs Date Time Temp Pulse Resp B/P (MAP) Pulse Ox O2 Delivery O2 Flow Rate FiO2 11/29/18 15:00 98.4 94 18 135/76 (95) 98 Room Air 98.4 Physical Exam PHYSICAL EXAM GENERAL: Propped up in bed, looks well HEENT: Oral cavity clear, no thrush or lesions NECK: Supple, no JVP, no lymphadenopathy. LUNGS: Clear. HEART: S1, S2 regular. ABDOMEN: Obese, soft and nontender EXTREMITIES: No edema or cyanosis. SKIN: Maculopapular rash all over the body PREP COOK: Alert, responds appropriately Port-A-Cath without signs of any complications . Labs Lab Laboratory Tests Test 11/29/18 13:40 White Blood Count 1.7 x10^3/uL (4.0-11.0) Red Blood Count 3.72 x10^6/uL (3.50-5.40) Hemoglobin 9.8 g/dL (12.0-15.5) Hematocrit 30.0 % (36.0-47.0) Mean Corpuscular Volume 81 fL (79-100) Mean Corpuscular Hemoglobin 26 pg (25-35) Mean Corpuscular Hemoglobin Concent 33 g/dL (31-37) Red Cell Distribution Width 15.4 % (11.5-14.5) Platelet Count 114 x10^3/uL (140-400) Neutrophils (%) (Auto) 78 % (31-73) Lymphocytes (%) (Auto) 8 % (24-48) Monocytes (%) (Auto) 9 % (0-9) Eosinophils (%) (Auto) 5 % (0-3) Basophils (%) (Auto) 0 % (0-3) Neutrophils # (Auto) 1.3 x10^3uL (1.8-7.7) Lymphocytes # (Auto) 0.1 x10^3/uL (1.0-4.8) Monocytes # (Auto) 0.1 x10^3/uL (0.0-1.1) Eosinophils # (Auto) 0.1 x10^3/uL (0.0-0.7) Basophils # (Auto) 0.0 x10^3/uL (0.0-0.2) Sodium Level 142 mmol/L (136-145) Potassium Level 3.4 mmol/L (3.5-5.1) Chloride Level 106 mmol/L (98-107) Carbon Dioxide Level 29 mmol/L (21-32) Anion Gap 7 (6-14) Blood Urea Nitrogen 7 mg/dL (7-20) Creatinine 0.8 mg/dL (0.6-1.0) Estimated GFR (Cockcroft-Gault) 73.7 BUN/Creatinine Ratio 9 (6-20) Glucose Level 124 mg/dL (70-99) Calcium Level 8.1 mg/dL (8.5-10.1) Magnesium Level 2.3 mg/dL (1.8-2.4) Total Bilirubin 0.6 mg/dL (0.2-1.0) Aspartate Amino Transf (AST/SGOT) 15 U/L (15-37) Alanine Aminotransferase (ALT/SGPT) 36 U/L (14-59) Alkaline Phosphatase 167 U/L (46-116) Total Protein 5.8 g/dL (6.4-8.2) Albumin 2.7 g/dL (3.4-5.0) Albumin/Globulin Ratio 0.9 (1.0-1.7) Micro Microbiology 11/27/18 Blood Culture - Preliminary, Resulted NO GROWTH AFTER 2 DAYS 11/25/18 Urine Culture - Final, Complete 11/25/18 Urine Culture Result 1 (DANIAL) - Final, Complete Objective Assessment Fever. Generalized rash, fading Neutropenia from chemotherapy. Lymphomas, on chemotherapy. Hypertension. Hypothyroidism. PCN allergy Plan Plan of Care Rash from viral infection or drugs, this is not Blanquita syndrome, though any drug can cause this rash including her chemotherapy, so far culture neg, cont meropenem, wean soon f/u am labs Monitor temp d/w Patient seen and examined. Chart reviewed in detail. Case discussed with FINANCIAL ECONOMIST. Agree with above plan. MIKAELA ENNIS APRN Nov 29, 2018 17:36 QUYNH ELLSWORTH MD Nov 29, 2018 20:11
[2018-11-29 19:00] VITALS: BP 129/62
[2018-11-29] MEDS: LATANOPROST 0.005% OPHTH SOLUTION 2.5ML BOTTLE. OU SCH (20:12)
[2018-11-29] MEDS: ENOXAPARIN 40 MG/0.4 ML SYRINGE. SQ SCH (20:13)
[2018-11-29 23:00] VITALS: BP 139/63
[2018-11-29] MEDS: ACETAMINOPHEN 325 MG TABLET. PO PRN (23:03)
[2018-11-30 02:59] VITALS: BP 137/74
[2018-11-30] MEDS: LEVOTHYROXINE 100 MCG TABLET PO SCH (05:39)
[2018-11-30] MEDS: MEROPENEM 500 MG in IV NORMAL SALINE 50ML 50 ML IV SCH ×3 (05:39→18:10)
[2018-11-30 06:50] LABS: CREATININE 0.6 mg/dL (0.6-1.0); GFR 102.7; POTASSIUM 3.8 mmol/L (3.5-5.1)
[2018-11-30 07:13] VITALS: BP 131/65
--- NOTE | 2018-11-30 07:49 | PDOC ---
Infectious Disease Note Subjective Subjective Slept alright last night Fever Tmax 100.6 Denies swelling/wheezing Denies N/V/D/cough/SOA ROS ROS per HPI Vital Sign Vital Signs Vital Signs Date Time Temp Pulse Resp B/P (MAP) Pulse Ox O2 Delivery O2 Flow Rate FiO2 11/30/18 07:13 98.0 91 18 131/65 (87) 97 Room Air 98.0 Physical Exam PHYSICAL EXAM GENERAL: Propped up in bed, awake, NAD HEENT: Oral cavity clear, no thrush or lesions NECK: Supple, no JVP, no lymphadenopathy. LUNGS: Clear. HEART: S1, S2 regular. ABDOMEN: Obese, soft and nontender EXTREMITIES: No edema or cyanosis. 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 Labs Lab Laboratory Tests Test 11/29/18 13:40 11/30/18 06:00 White Blood Count 1.7 x10^3/uL (4.0-11.0) Red Blood Count 3.72 x10^6/uL (3.50-5.40) Hemoglobin 9.8 g/dL (12.0-15.5) Hematocrit 30.0 % (36.0-47.0) Mean Corpuscular Volume 81 fL (79-100) Mean Corpuscular Hemoglobin 26 pg (25-35) Mean Corpuscular Hemoglobin Concent 33 g/dL (31-37) Red Cell Distribution Width 15.4 % (11.5-14.5) Platelet Count 114 x10^3/uL (140-400) Neutrophils (%) (Auto) 78 % (31-73) Lymphocytes (%) (Auto) 8 % (24-48) Monocytes (%) (Auto) 9 % (0-9) Eosinophils (%) (Auto) 5 % (0-3) Basophils (%) (Auto) 0 % (0-3) Neutrophils # (Auto) 1.3 x10^3uL (1.8-7.7) Lymphocytes # (Auto) 0.1 x10^3/uL (1.0-4.8) Monocytes # (Auto) 0.1 x10^3/uL (0.0-1.1) Eosinophils # (Auto) 0.1 x10^3/uL (0.0-0.7) Basophils # (Auto) 0.0 x10^3/uL (0.0-0.2) Sodium Level 142 mmol/L (136-145) 143 mmol/L (136-145) Potassium Level 3.4 mmol/L (3.5-5.1) 3.8 mmol/L (3.5-5.1) Chloride Level 106 mmol/L (98-107) 106 mmol/L (98-107) Carbon Dioxide Level 29 mmol/L (21-32) 29 mmol/L (21-32) Anion Gap 7 (6-14) 8 (6-14) Blood Urea Nitrogen 7 mg/dL (7-20) 9 mg/dL (7-20) Creatinine 0.8 mg/dL (0.6-1.0) 0.6 mg/dL (0.6-1.0) Estimated GFR (Cockcroft-Gault) 73.7 102.7 BUN/Creatinine Ratio 9 (6-20) Glucose Level 124 mg/dL (70-99) 105 mg/dL (70-99) Calcium Level 8.1 mg/dL (8.5-10.1) 8.0 mg/dL (8.5-10.1) Magnesium Level 2.3 mg/dL (1.8-2.4) Total Bilirubin 0.6 mg/dL (0.2-1.0) Aspartate Amino Transf (AST/SGOT) 15 U/L (15-37) Alanine Aminotransferase (ALT/SGPT) 36 U/L (14-59) Alkaline Phosphatase 167 U/L (46-116) Total Protein 5.8 g/dL (6.4-8.2) Albumin 2.7 g/dL (3.4-5.0) Albumin/Globulin Ratio 0.9 (1.0-1.7) Micro 11/27/18 Blood Culture - Preliminary, Resulted NO GROWTH AFTER 2 DAYS URINE CULTURE RES 1 Final No growth Objective Assessment Fever. Generalized rash, fading Neutropenia from chemotherapy. Lymphomas, on chemotherapy. Hypertension. Hypothyroidism. PCN allergy Plan Plan of Care Rash from viral infection or drugs, this is not Blanquita syndrome, though any drug can cause this rash including her chemotherapy, so far culture neg, cont meropenem, wean soon Today's labs pending Monitor temp D/w nursing Patient seen and examined. Chart reviewed in detail. 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 Agree with above plan. MIKAELA ENNIS APRN Nov 30, 2018 07:49 QUYNH ELLSWORTH MD Nov 30, 2018 21:21
[2018-11-30] MEDS: NYSTATIN 100,000 UNITS/ML 5 ML ORAL.SUSP. SWSW SCH ×3 (09:40→20:59)
[2018-11-30] MEDS: MULTIVITAMIN with MINERAL TABLET. PO SCH (09:41)
[2018-11-30] MEDS: ACETAMINOPHEN 325 MG TABLET. PO PRN (09:41)
[2018-11-30] MEDS: ASPIRIN CHEWABLE 81 MG TABLET. PO SCH (09:41)
[2018-11-30] MEDS: METOPROLOL TART IMMED RELEASE 25 MG TABLET. PO SCH (09:42)
[2018-11-30] MEDS: DULoxetine HCL 30 MG CAPSULE.DR PO SCH (09:42)
[2018-11-30 10:42] VITALS: BP 116/69
--- NOTE | 2018-11-30 10:51 | PDOC ---
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 LUNGS: Clear. General: Alert, Oriented X3, Cooperative, No acute distress Lungs: Clear Abdomen: Normal bowel sounds, Soft Extremities: No cyanosis Skin: No breakdown Labs LABS Laboratory Tests Test 11/29/18 13:40 11/30/18 06:00 White Blood Count 1.7 x10^3/uL (4.0-11.0) Red Blood Count 3.72 x10^6/uL (3.50-5.40) Hemoglobin 9.8 g/dL (12.0-15.5) Hematocrit 30.0 % (36.0-47.0) Mean Corpuscular Volume 81 fL (79-100) Mean Corpuscular Hemoglobin 26 pg (25-35) Mean Corpuscular Hemoglobin Concent 33 g/dL (31-37) Red Cell Distribution Width 15.4 % (11.5-14.5) Platelet Count 114 x10^3/uL (140-400) Neutrophils (%) (Auto) 78 % (31-73) Lymphocytes (%) (Auto) 8 % (24-48) Monocytes (%) (Auto) 9 % (0-9) Eosinophils (%) (Auto) 5 % (0-3) Basophils (%) (Auto) 0 % (0-3) Neutrophils # (Auto) 1.3 x10^3uL (1.8-7.7) Lymphocytes # (Auto) 0.1 x10^3/uL (1.0-4.8) Monocytes # (Auto) 0.1 x10^3/uL (0.0-1.1) Eosinophils # (Auto) 0.1 x10^3/uL (0.0-0.7) Basophils # (Auto) 0.0 x10^3/uL (0.0-0.2) Sodium Level 142 mmol/L (136-145) 143 mmol/L (136-145) Potassium Level 3.4 mmol/L (3.5-5.1) 3.8 mmol/L (3.5-5.1) Chloride Level 106 mmol/L (98-107) 106 mmol/L (98-107) Carbon Dioxide Level 29 mmol/L (21-32) 29 mmol/L (21-32) Anion Gap 7 (6-14) 8 (6-14) Blood Urea Nitrogen 7 mg/dL (7-20) 9 mg/dL (7-20) Creatinine 0.8 mg/dL (0.6-1.0) 0.6 mg/dL (0.6-1.0) Estimated GFR (Cockcroft-Gault) 73.7 102.7 BUN/Creatinine Ratio 9 (6-20) Glucose Level 124 mg/dL (70-99) 105 mg/dL (70-99) Calcium Level 8.1 mg/dL (8.5-10.1) 8.0 mg/dL (8.5-10.1) Magnesium Level 2.3 mg/dL (1.8-2.4) Total Bilirubin 0.6 mg/dL (0.2-1.0) Aspartate Amino Transf (AST/SGOT) 15 U/L (15-37) Alanine Aminotransferase (ALT/SGPT) 36 U/L (14-59) Alkaline Phosphatase 167 U/L (46-116) Total Protein 5.8 g/dL (6.4-8.2) Albumin 2.7 g/dL (3.4-5.0) Albumin/Globulin Ratio 0.9 (1.0-1.7) Iron Level 38 ug/dL (50-170) Total Iron Binding Capacity 246 ug/dL (250-450) Iron Saturation 15 % (15-34) Review of Systems Review of Systems complains of vaginal discharge that she describes as a yeast infection, will give monistat Assessment and Plan Assessmemt and Plan Problems Medical Problems: (1) Fever Status: Acute (2) Sepsis Status: Acute Comment Review of Relevant I have reviewed the following items kike (where applicable) has been applied. Labs Laboratory Tests Test 11/29/18 13:40 11/30/18 06:00 White Blood Count 1.7 x10^3/uL (4.0-11.0) Red Blood Count 3.72 x10^6/uL (3.50-5.40) Hemoglobin 9.8 g/dL (12.0-15.5) Hematocrit 30.0 % (36.0-47.0) Mean Corpuscular Volume 81 fL (79-100) Mean Corpuscular Hemoglobin 26 pg (25-35) Mean Corpuscular Hemoglobin Concent 33 g/dL (31-37) Red Cell Distribution Width 15.4 % (11.5-14.5) Platelet Count 114 x10^3/uL (140-400) Neutrophils (%) (Auto) 78 % (31-73) Lymphocytes (%) (Auto) 8 % (24-48) Monocytes (%) (Auto) 9 % (0-9) Eosinophils (%) (Auto) 5 % (0-3) Basophils (%) (Auto) 0 % (0-3) Neutrophils # (Auto) 1.3 x10^3uL (1.8-7.7) Lymphocytes # (Auto) 0.1 x10^3/uL (1.0-4.8) Monocytes # (Auto) 0.1 x10^3/uL (0.0-1.1) Eosinophils # (Auto) 0.1 x10^3/uL (0.0-0.7) Basophils # (Auto) 0.0 x10^3/uL (0.0-0.2) Sodium Level 142 mmol/L (136-145) 143 mmol/L (136-145) Potassium Level 3.4 mmol/L (3.5-5.1) 3.8 mmol/L (3.5-5.1) Chloride Level 106 mmol/L (98-107) 106 mmol/L (98-107) Carbon Dioxide Level 29 mmol/L (21-32) 29 mmol/L (21-32) Anion Gap 7 (6-14) 8 (6-14) Blood Urea Nitrogen 7 mg/dL (7-20) 9 mg/dL (7-20) Creatinine 0.8 mg/dL (0.6-1.0) 0.6 mg/dL (0.6-1.0) Estimated GFR (Cockcroft-Gault) 73.7 102.7 BUN/Creatinine Ratio 9 (6-20) Glucose Level 124 mg/dL (70-99) 105 mg/dL (70-99) Calcium Level 8.1 mg/dL (8.5-10.1) 8.0 mg/dL (8.5-10.1) Magnesium Level 2.3 mg/dL (1.8-2.4) Total Bilirubin 0.6 mg/dL (0.2-1.0) Aspartate Amino Transf (AST/SGOT) 15 U/L (15-37) Alanine Aminotransferase (ALT/SGPT) 36 U/L (14-59) Alkaline Phosphatase 167 U/L (46-116) Total Protein 5.8 g/dL (6.4-8.2) Albumin 2.7 g/dL (3.4-5.0) Albumin/Globulin Ratio 0.9 (1.0-1.7) Iron Level 38 ug/dL (50-170) Total Iron Binding Capacity 246 ug/dL (250-450) Iron Saturation 15 % (15-34) Laboratory Tests Test 11/29/18 13:40 11/30/18 06:00 White Blood Count 1.7 x10^3/uL (4.0-11.0) Red Blood Count 3.72 x10^6/uL (3.50-5.40) Hemoglobin 9.8 g/dL (12.0-15.5) Hematocrit 30.0 % (36.0-47.0) Mean Corpuscular Volume 81 fL (79-100) Mean Corpuscular Hemoglobin 26 pg (25-35) Mean Corpuscular Hemoglobin Concent 33 g/dL (31-37) Red Cell Distribution Width 15.4 % (11.5-14.5) Platelet Count 114 x10^3/uL (140-400) Neutrophils (%) (Auto) 78 % (31-73) Lymphocytes (%) (Auto) 8 % (24-48) Monocytes (%) (Auto) 9 % (0-9) Eosinophils (%) (Auto) 5 % (0-3) Basophils (%) (Auto) 0 % (0-3) Neutrophils # (Auto) 1.3 x10^3uL (1.8-7.7) Lymphocytes # (Auto) 0.1 x10^3/uL (1.0-4.8) Monocytes # (Auto) 0.1 x10^3/uL (0.0-1.1) Eosinophils # (Auto) 0.1 x10^3/uL (0.0-0.7) Basophils # (Auto) 0.0 x10^3/uL (0.0-0.2) Sodium Level 142 mmol/L (136-145) 143 mmol/L (136-145) Potassium Level 3.4 mmol/L (3.5-5.1) 3.8 mmol/L (3.5-5.1) Chloride Level 106 mmol/L (98-107) 106 mmol/L (98-107) Carbon Dioxide Level 29 mmol/L (21-32) 29 mmol/L (21-32) Anion Gap 7 (6-14) 8 (6-14) Blood Urea Nitrogen 7 mg/dL (7-20) 9 mg/dL (7-20) Creatinine 0.8 mg/dL (0.6-1.0) 0.6 mg/dL (0.6-1.0) Estimated GFR (Cockcroft-Gault) 73.7 102.7 BUN/Creatinine Ratio 9 (6-20) Glucose Level 124 mg/dL (70-99) 105 mg/dL (70-99) Calcium Level 8.1 mg/dL (8.5-10.1) 8.0 mg/dL (8.5-10.1) Magnesium Level 2.3 mg/dL (1.8-2.4) Total Bilirubin 0.6 mg/dL (0.2-1.0) Aspartate Amino Transf (AST/SGOT) 15 U/L (15-37) Alanine Aminotransferase (ALT/SGPT) 36 U/L (14-59) Alkaline Phosphatase 167 U/L (46-116) Total Protein 5.8 g/dL (6.4-8.2) Albumin 2.7 g/dL (3.4-5.0) Albumin/Globulin Ratio 0.9 (1.0-1.7) Iron Level 38 ug/dL (50-170) Total Iron Binding Capacity 246 ug/dL (250-450) Iron Saturation 15 % (15-34) Microbiology 11/27/18 Blood Culture - Preliminary, Resulted NO GROWTH AFTER 2 DAYS 11/25/18 Urine Culture - Final, Complete 11/25/18 Urine Culture Result 1 (DANIAL) - Final, Complete Medications Current Medications Vancomycin HCl (Vanco Per Pharmacy) 1 each 1X ONCE MC Last administered on 09/03at 13:00; Start 11/25/18 at 13:00; Stop 11/25/18 at 13:08; Status DC Levofloxacin/ Dextrose 150 ml @ 100 mls/hr 1X ONCE IV Last administered on 09/03at 14:47; Start 11/25/18 at 13:00; Stop 11/25/18 at 14:29; Status DC Sodium Chloride 1,000 ml @ 166.667 mls/hr Q6H IV Last administered on at 09:13; Start 11/25/18 at 13:00; Stop 11/26/18 at 09:08; Status DC Acetaminophen (Tylenol) 1,000 mg 1X ONCE PO Last administered on 11/25/18at 13: 20; Start 11/25/18 at 13:00; Stop 11/25/18 at 13:06; Status DC Vancomycin HCl 2 gm/Sodium Chloride 500 ml @ 250 mls/hr 1X ONCE IV Last administered on 11/25/18at 16:30; Start 11/25/18 at 13:15; Stop 11/25/18 at 15:14 ; Status DC Ondansetron HCl (Zofran) 4 mg PRN Q8HRS PRN IV NAUSEA/VOMITING Last administered on 11/25/18at 17:02; Start 11/25/18 at 15:45; Stop 11/26/18 at 15:44 ; Status DC Fentanyl Citrate (Fentanyl 2ml Vial) 50 mcg PRN Q1HR PRN IV PAIN; Start at 15:45; Stop 11/26/18 at 15:44; Status DC Acetaminophen (Tylenol) 650 mg PRN Q4HRS PRN PO FEVER Last administered on 11/26at 09:13; Start 11/25/18 at 15:45; Stop 11/26/18 at 15:44; Status DC Sodium Chloride 1,000 ml @ 125 mls/hr 1X ONCE IV ; Start 11/25/18 at 15:45; Stop 11/25/18 at 23:44; Status DC Sodium Chloride 1,000 ml @ 1,980 mls/hr Q31M IV Last administered on 20:51; Start 11/25/18 at 20:20; Stop 11/25/18 at 21:20; Status DC Sodium Chloride 500 ml @ 1,000 mls/hr PRN Q30MIN PRN IV SEE COMMENTS; Start at 20:30 Levofloxacin/ Dextrose 100 ml @ 100 mls/hr Q24H IV Last administered on 21:26; Start 11/25/18 at 21:00; Stop 11/26/18 at 11:30; Status DC Aspirin (Children'S Aspirin) 81 mg DAILY PO Last administered on 11/30/18 09: 41; Start 11/26/18 at 09:00 Duloxetine HCl (Cymbalta) 30 mg DAILY PO Last administered on 11/30/18 09:42; Start 11/26/18 at 09:00 Levothyroxine Sodium (Synthroid) 100 mcg DAILY06 PO Last administered on 05:39; Start 11/26/18 at 06:00 Metoprolol Tartrate (Lopressor) 25 mg DAILY PO Last administered on 11/30/18 09:42; Start 11/26/18 at 09:00 Non-Formulary Medication (Biotin ) 10,000 mcg DAILY PO ; Start 11/26/18 at 09:00 ; Status UNV Latanoprost (Xalatan) 1 drop QHS OU Last administered on 11/29/18 20:12; Start 11/25/18 at 21:00 Multivitamins (Thera M Plus) 1 tab DAILY PO Last administered on 11/30/18 09: 41; Start 11/26/18 at 09:00 Enoxaparin Sodium (Lovenox 40mg Syringe) 40 mg Q24H SQ ; Start 11/25/18 at 21:00 Ibuprofen (Motrin) 800 mg 1X ONCE PO Last administered on 11/26/18 11:20; Start 11/26/18 at 11:30; Stop 11/26/18 at 11:31; Status DC Cefepime HCl (Maxipime) 1 gm Q12HR IVP Last administered on 11/27/18at 08:35; Start 11/26/18 at 12:00; Stop 11/27/18 at 14:05; Status DC Diphenhydramine HCl (Benadryl) 25 mg PRN Q12HR PRN PO ITCHING Last administered on 11/27/18at 10:59; Start 11/26/18 at 13:30 Diphenhydramine HCl (Benadryl) 50 mg 1X ONCE PO Last administered on at 14:45; Start 11/26/18 at 13:45; Stop 11/26/18 at 13:46; Status DC Vancomycin HCl 1.5 gm/Sodium Chloride 500 ml @ 250 mls/hr Q12H IV Last administered on 11/27/18at 02:41; Start 11/26/18 at 15:00; Stop 11/27/18 at 14:05 ; Status DC Vancomycin HCl (Vanco Per Pharmacy) 1 each PRN DAILY PRN MC SEE COMMENTS Last administered on 11/26/18at 14:38; Start 11/26/18 at 14:45; Stop 11/27/18 at 14:11 ; Status DC Vancomycin HCl (Vancomycin Trough Level) 1 each 1X ONCE MC ; Start 11/28/18 at 02:30; Stop 11/28/18 at 02:30; Status DC Acetaminophen (Tylenol) 650 mg PRN Q4HRS PRN PO fever Last administered on 11/30at 09:41; Start 11/26/18 at 18:00 Lidocaine HCl (Glydo (Lidocaine) Jelly) 1 ger 1X ONCE TP Last administered on 11/27/18at 10:58; Start 11/27/18 at 10:45; Stop 11/27/18 at 10:46; Status DC Non-Formulary Medication 1 ea WEEKLY TP Last administered on 11/28/18at 20:58; Start 11/28/18 at 20:00 Daptomycin 670 mg/ Sodium Chloride 50 ml @ 100 mls/hr Q24H IV Last administered on 11/27/18at 15:57; Start 11/27/18 at 15:00; Stop 11/28/18 at 10:22 ; Status DC Meropenem 500 mg/ Sodium Chloride 50 ml @ 100 mls/hr Q6HRS IV Last administered on 11/30/18at 05:39; Start 11/27/18 at 14:30 Nystatin (Nystatin Oral Susp) 5 ml TID SWSW Last administered on 11/30/18at 09: 40; Start 11/28/18 at 00:00 Throat Lozenges (Cepacol Sore Throat Lozenge) 1 daniel TID PRN PRN PO SORE THROAT Last administered on 11/28/18at 00:12; Start 11/27/18 at 23:45 Potassium Chloride/Water 100 ml @ 100 mls/hr Q1H IV Last administered on at 15:18; Start 11/28/18 at 07:30; Stop 11/28/18 at 13:29; Status DC Potassium Chloride (Klor-Con) 20 meq 1X ONCE PO Last administered on 15:21; Start 11/29/18 at 12:15; Stop 11/29/18 at 12:16; Status DC Active Scripts Active Reported Biotin 10,000 Mcg Capsule 10,000 Mcg PO DAILY Multivitamins (Multivitamin) 1 Each Tablet 1 Each PO DAILY Metoprolol Tartrate 25 Mg Tablet 25 Mg PO DAILY Cymbalta (Duloxetine Hcl) 30 Mg Capsule.dr 1 Cap PO DAILY Aspirin 81 Mg Tab.chew 1 Tab PO DAILY Synthroid (Levothyroxine Sodium) 88 Mcg Tablet 100 Mcg PO DAILY Climara (Estradiol) 1 Each Patch.tdwk Latanoprost 2.5 Ml Drops 1 Drop EACHEYE QHS Vitals/I & O Vital Sign - Last 24 Hours 11/29/18 11/29/18 11/29/18 11/29/18 11:41 15:00 19:00 20:00 Temp 98.2 98.4 99.9 98.2 98.4 99.9 Pulse 88 94 93 Resp 17 18 18 B/P (MAP) 122/79 (93) 135/76 (95) 129/62 (84) Pulse Ox 98 98 98 O2 Delivery Room Air Room Air Room Air Room Air 11/29/18 11/30/18 11/30/18 11/30/18 23:00 02:59 07:13 09:42 Temp 100.6 99.1 98.0 100.6 99.1 98.0 Pulse 103 99 91 91 Resp 18 18 18 B/P (MAP) 139/63 (88) 137/74 (95) 131/65 (87) 131/65 Pulse Ox 98 98 97 O2 Delivery Room Air Room Air Room Air 11/30/18 10:42 Temp 97.9 97.9 Pulse 93 Resp 17 B/P (MAP) 116/69 (85) Pulse Ox 97 O2 Delivery Room Air Intake and Output 11/29/18 11/29/18 11/30/18 14:59 22:59 06:59 Intake Total 500 ml 1200 ml Balance 500 ml 1200 ml MARVA MACEDO MD Nov 30, 2018 10:51
[2018-11-30 12:53] LABS: BASO % 1 % (0-3); EOS # 0.1 x10^3/uL (0.0-0.7); EOS % 7 % (0-3); HEMATOCRIT 27.4 % (36.0-47.0); HEMOGLOBIN 9.1 g/dL (12.0-15.5); LYMPH # 0.1 x10^3/uL (1.0-4.8); LYMPH % 9 % (24-48); MEAN CORPUSCULAR HEMOGLOBIN 27 pg (25-35); MEAN CORPUSCULAR HGB CONC 33 g/dL (31-37); MEAN CORPUSCULAR VOLUME 81 fL (79-100); MONO # 0.2 x10^3/uL (0.0-1.1); MONO % 14 % (0-9); NEUT # 0.9 x10^3uL (1.8-7.7); NEUT % 70 % (31-73); PLATELET COUNT 106 x10^3/uL (140-400); RED BLOOD COUNT 3.38 x10^6/uL (3.50-5.40); RED CELL DISTRIBUTION WIDTH 15.3 % (11.5-14.5)
[2018-11-30 13:05] LABS: WHITE BLOOD COUNT 1.2 x10^3/uL (4.0-11.0)
[2018-11-30] MEDS: CLOTRIMAZOLE 1% VAGINAL CREAM 45GM TUBE. VG SCH (13:23)
[2018-11-30 14:49] VITALS: BP 138/80
[2018-11-30 19:30] VITALS: BP 126/59
[2018-11-30] MEDS: LATANOPROST 0.005% OPHTH SOLUTION 2.5ML BOTTLE. OU SCH (20:54)
[2018-11-30] MEDS: ENOXAPARIN 40 MG/0.4 ML SYRINGE. SQ SCH (20:59)
[2018-11-30 23:24] VITALS: BP 143/77
[2018-12-01] MEDS: MEROPENEM 500 MG in IV NORMAL SALINE 50ML 50 ML IV SCH ×2 (00:10→05:46)
--- NOTE | 2018-12-01 00:55 | NUR ---
11/30/18 at 2200 PICC line dressing changed. Will continue to monitor pt.
[2018-12-01 03:03] VITALS: BP 136/72
[2018-12-01] MEDS: LEVOTHYROXINE 100 MCG TABLET PO SCH (05:46)
[2018-12-01 06:33] LABS: BASO % 1 % (0-3); EOS # 0.1 x10^3/uL (0.0-0.7); EOS % 5 % (0-3); HEMATOCRIT 26.5 % (36.0-47.0); LYMPH # 0.1 x10^3/uL (1.0-4.8); LYMPH % 9 % (24-48); MEAN CORPUSCULAR HEMOGLOBIN 27 pg (25-35); MEAN CORPUSCULAR HGB CONC 34 g/dL (31-37); MEAN CORPUSCULAR VOLUME 80 fL (79-100); MONO # 0.1 x10^3/uL (0.0-1.1); MONO % 10 % (0-9); NEUT # 1.1 x10^3uL (1.8-7.7); NEUT % 75 % (31-73); PLATELET COUNT 120 x10^3/uL (140-400); RED CELL DISTRIBUTION WIDTH 15.1 % (11.5-14.5)
[2018-12-01 06:40] LABS: WHITE BLOOD COUNT 1.5 x10^3/uL (4.0-11.0)
[2018-12-01 07:00] VITALS: BP 122/55
--- NOTE | 2018-12-01 07:34 | NUR ---
at 0730 Dr. Eva Li called regarding pt wbc, no new orders received.
[2018-12-01] MEDS: CLOTRIMAZOLE 1% VAGINAL CREAM 45GM TUBE. VG SCH (09:00)
[2018-12-01] MEDS: NYSTATIN 100,000 UNITS/ML 5 ML ORAL.SUSP. SWSW SCH (10:01)
[2018-12-01] MEDS: ASPIRIN CHEWABLE 81 MG TABLET. PO SCH (10:02)
[2018-12-01] MEDS: MULTIVITAMIN with MINERAL TABLET. PO SCH (10:02)
[2018-12-01] MEDS: METOPROLOL TART IMMED RELEASE 25 MG TABLET. PO SCH (10:03)
[2018-12-01] MEDS: DULoxetine HCL 30 MG CAPSULE.DR PO SCH (10:04)
[2018-12-01 11:00] VITALS: BP 130/71
--- NOTE | 2018-12-01 11:28 | PDOC ---
Infectious Disease Note Subjective Subjective feeling good ROS ROS no n/v/d/sob Vital Sign Vital Signs Vital Signs Date Time Temp Pulse Resp B/P (MAP) Pulse Ox O2 Delivery O2 Flow Rate FiO2 12/01/18 11:00 98.7 94 18 130/71 (90) 100 Room Air 98.7 Physical Exam PHYSICAL EXAM GENERAL: Propped up in bed, awake, NAD HEENT: Oral cavity clear, no thrush or lesions NECK: Supple, no JVP, no lymphadenopathy. LUNGS: Clear. HEART: S1, S2 regular. ABDOMEN: Obese, soft and nontender EXTREMITIES: No edema or cyanosis. SKIN: Maculopapular rash all over the body [employer] CHIEF: Alert, responds appropriately Port-A-Cath without signs of any complications . Labs Lab Laboratory Tests Test 12/01/18 06:00 White Blood Count 1.5 x10^3/uL (4.0-11.0) Red Blood Count 3.30 x10^6/uL (3.50-5.40) Hemoglobin 9.0 g/dL (12.0-15.5) Hematocrit 26.5 % (36.0-47.0) Mean Corpuscular Volume 80 fL (79-100) Mean Corpuscular Hemoglobin 27 pg (25-35) Mean Corpuscular Hemoglobin Concent 34 g/dL (31-37) Red Cell Distribution Width 15.1 % (11.5-14.5) Platelet Count 120 x10^3/uL (140-400) Neutrophils (%) (Auto) 75 % (31-73) Lymphocytes (%) (Auto) 9 % (24-48) Monocytes (%) (Auto) 10 % (0-9) Eosinophils (%) (Auto) 5 % (0-3) Basophils (%) (Auto) 1 % (0-3) Neutrophils # (Auto) 1.1 x10^3uL (1.8-7.7) Lymphocytes # (Auto) 0.1 x10^3/uL (1.0-4.8) Monocytes # (Auto) 0.1 x10^3/uL (0.0-1.1) Eosinophils # (Auto) 0.1 x10^3/uL (0.0-0.7) Basophils # (Auto) 0.0 x10^3/uL (0.0-0.2) Micro Microbiology 3/12/19 Blood Culture - Preliminary, Resulted NO GROWTH AFTER 2 DAYS 11/25/18 Urine Culture - Final, Complete 11/25/18 Urine Culture Result 1 (DANIAL) - Final, Complete Objective Assessment 1. Fever. improved 2. Neutropenia from chemotherapy. 3. Lymphomas, on chemotherapy. 4. Hypertension. 5. Hypothyroidism. Plan Plan of Care d/c meropenem ok to d/c home po ELVIS Cline MD Dec 01, 2018 11:28
[2018-12-01] MEDS ORDERED: CLOT45CR4 VG (13:09)
[2018-12-01] MEDS ORDERED: NYST100054 SWSW (13:09)
[2018-12-01] MEDS ORDERED: LEVO500T59 PO (13:09)
--- NOTE | 2018-12-01 14:27 | PDOC ---
PROGRESS NOTES Chief Complaint Chief Complaint sepsis neutropenic fever dry rash lymphoma on chemo, marginal zone lymphoma obesity, BMI 36 hypokalemia, History of Present Illness History of Present Illness Rash better, vitals improved, stronger today Give additional K+ PO intake a little better today Microbiology 11/25/18 Blood Culture - Preliminary, Resulted NO GROWTH AFTER 2 DAYS 11/25/18 Urine Culture - Final, Complete 11/25/18 Urine Culture Result 1 (DANIAL) - Final, Complete 1. Fever. improved 2. Neutropenia from chemotherapy. 3. Lymphomas, on chemotherapy. 4. Hypertension. 5. Hypothyroidism. Discussed with ID and oncology ok for d/c on 7 days of levaquin Vitals Vitals Vital Signs Date Time Temp Pulse Resp B/P (MAP) Pulse Ox O2 Delivery O2 Flow Rate FiO2 12/01/18 11:00 98.7 94 18 130/71 (90) 100 Room Air 98.7 Physical Exam Physical Exam GENERAL: Propped up in bed, awake, NAD HEENT: Oral cavity clear, no thrush or lesions NECK: Supple, no JVP, no lymphadenopathy. LUNGS: Clear. HEART: S1, S2 regular. ABDOMEN: Obese, soft and nontender EXTREMITIES: No edema or cyanosis. SKIN: Maculopapular rash all over the body TECHNICAL SME: Alert, responds appropriately Port-A-Cath without signs of any complications . General: Alert, Oriented X3, Cooperative, No acute distress Lungs: Clear Abdomen: Normal bowel sounds, Soft Extremities: No cyanosis Skin: No breakdown Labs LABS Laboratory Tests Test 12/01/18 06:00 White Blood Count 1.5 x10^3/uL (4.0-11.0) Red Blood Count 3.30 x10^6/uL (3.50-5.40) Hemoglobin 9.0 g/dL (12.0-15.5) Hematocrit 26.5 % (36.0-47.0) Mean Corpuscular Volume 80 fL (79-100) Mean Corpuscular Hemoglobin 27 pg (25-35) Mean Corpuscular Hemoglobin Concent 34 g/dL (31-37) Red Cell Distribution Width 15.1 % (11.5-14.5) Platelet Count 120 x10^3/uL (140-400) Neutrophils (%) (Auto) 75 % (31-73) Lymphocytes (%) (Auto) 9 % (24-48) Monocytes (%) (Auto) 10 % (0-9) Eosinophils (%) (Auto) 5 % (0-3) Basophils (%) (Auto) 1 % (0-3) Neutrophils # (Auto) 1.1 x10^3uL (1.8-7.7) Lymphocytes # (Auto) 0.1 x10^3/uL (1.0-4.8) Monocytes # (Auto) 0.1 x10^3/uL (0.0-1.1) Eosinophils # (Auto) 0.1 x10^3/uL (0.0-0.7) Basophils # (Auto) 0.0 x10^3/uL (0.0-0.2) Assessment and Plan Assessmemt and Plan Problems Medical Problems: (1) Fever Status: Acute (2) Sepsis Status: Acute Comment Review of Relevant I have reviewed the following items kike (where applicable) has been applied. Labs Laboratory Tests Test 11/30/18 06:00 12/01/18 06:00 White Blood Count 1.2 x10^3/uL (4.0-11.0) 1.5 x10^3/uL (4.0-11.0) Red Blood Count 3.38 x10^6/uL (3.50-5.40) 3.30 x10^6/uL (3.50-5.40) Hemoglobin 9.1 g/dL (12.0-15.5) 9.0 g/dL (12.0-15.5) Hematocrit 27.4 % (36.0-47.0) 26.5 % (36.0-47.0) Mean Corpuscular Volume 81 fL (79-100) 80 fL (79-100) Mean Corpuscular Hemoglobin 27 pg (25-35) 27 pg (25-35) Mean Corpuscular Hemoglobin Concent 33 g/dL (31-37) 34 g/dL (31-37) Red Cell Distribution Width 15.3 % (11.5-14.5) 15.1 % (11.5-14.5) Platelet Count 106 x10^3/uL (140-400) 120 x10^3/uL (140-400) Neutrophils (%) (Auto) 70 % (31-73) 75 % (31-73) Lymphocytes (%) (Auto) 9 % (24-48) 9 % (24-48) Monocytes (%) (Auto) 14 % (0-9) 10 % (0-9) Eosinophils (%) (Auto) 7 % (0-3) 5 % (0-3) Basophils (%) (Auto) 1 % (0-3) 1 % (0-3) Neutrophils # (Auto) 0.9 x10^3uL (1.8-7.7) 1.1 x10^3uL (1.8-7.7) Lymphocytes # (Auto) 0.1 x10^3/uL (1.0-4.8) 0.1 x10^3/uL (1.0-4.8) Monocytes # (Auto) 0.2 x10^3/uL (0.0-1.1) 0.1 x10^3/uL (0.0-1.1) Eosinophils # (Auto) 0.1 x10^3/uL (0.0-0.7) 0.1 x10^3/uL (0.0-0.7) Basophils # (Auto) 0.0 x10^3/uL (0.0-0.2) 0.0 x10^3/uL (0.0-0.2) Sodium Level 143 mmol/L (136-145) Potassium Level 3.8 mmol/L (3.5-5.1) Chloride Level 106 mmol/L (98-107) Carbon Dioxide Level 29 mmol/L (21-32) Anion Gap 8 (6-14) Blood Urea Nitrogen 9 mg/dL (7-20) Creatinine 0.6 mg/dL (0.6-1.0) Estimated GFR (Cockcroft-Gault) 102.7 Glucose Level 105 mg/dL (70-99) Calcium Level 8.0 mg/dL (8.5-10.1) Iron Level 38 ug/dL (50-170) Total Iron Binding Capacity 246 ug/dL (250-450) Iron Saturation 15 % (15-34) Laboratory Tests Test 12/01/18 06:00 White Blood Count 1.5 x10^3/uL (4.0-11.0) Red Blood Count 3.30 x10^6/uL (3.50-5.40) Hemoglobin 9.0 g/dL (12.0-15.5) Hematocrit 26.5 % (36.0-47.0) Mean Corpuscular Volume 80 fL (79-100) Mean Corpuscular Hemoglobin 27 pg (25-35) Mean Corpuscular Hemoglobin Concent 34 g/dL (31-37) Red Cell Distribution Width 15.1 % (11.5-14.5) Platelet Count 120 x10^3/uL (140-400) Neutrophils (%) (Auto) 75 % (31-73) Lymphocytes (%) (Auto) 9 % (24-48) Monocytes (%) (Auto) 10 % (0-9) Eosinophils (%) (Auto) 5 % (0-3) Basophils (%) (Auto) 1 % (0-3) Neutrophils # (Auto) 1.1 x10^3uL (1.8-7.7) Lymphocytes # (Auto) 0.1 x10^3/uL (1.0-4.8) Monocytes # (Auto) 0.1 x10^3/uL (0.0-1.1) Eosinophils # (Auto) 0.1 x10^3/uL (0.0-0.7) Basophils # (Auto) 0.0 x10^3/uL (0.0-0.2) Microbiology 11/27/18 Blood Culture - Preliminary, Resulted NO GROWTH AFTER 4 DAYS 11/25/18 Urine Culture - Final, Complete 11/25/18 Urine Culture Result 1 (DANIAL) - Final, Complete Medications Current Medications Vancomycin HCl (Vanco Per Pharmacy) 1 each 1X ONCE MC Last administered on 09/03at 13:00; Start 11/25/18 at 13:00; Stop 11/25/18 at 13:08; Status DC Levofloxacin/ Dextrose 150 ml @ 100 mls/hr 1X ONCE IV Last administered on 09/03at 14:47; Start 11/25/18 at 13:00; Stop 11/25/18 at 14:29; Status DC Sodium Chloride 1,000 ml @ 166.667 mls/hr Q6H IV Last administered on at 09:13; Start 11/25/18 at 13:00; Stop 11/26/18 at 09:08; Status DC Acetaminophen (Tylenol) 1,000 mg 1X ONCE PO Last administered on 11/25/18at 13: 20; Start 11/25/18 at 13:00; Stop 11/25/18 at 13:06; Status DC Vancomycin HCl 2 gm/Sodium Chloride 500 ml @ 250 mls/hr 1X ONCE IV Last administered on 11/25/18at 16:30; Start 11/25/18 at 13:15; Stop 11/25/18 at 15:14 ; Status DC Ondansetron HCl (Zofran) 4 mg PRN Q8HRS PRN IV NAUSEA/VOMITING Last administered on 11/25/18at 17:02; Start 11/25/18 at 15:45; Stop 11/26/18 at 15:44 ; Status DC Fentanyl Citrate (Fentanyl 2ml Vial) 50 mcg PRN Q1HR PRN IV PAIN; Start at 15:45; Stop 11/26/18 at 15:44; Status DC Acetaminophen (Tylenol) 650 mg PRN Q4HRS PRN PO FEVER Last administered on 11/26at 09:13; Start 11/25/18 at 15:45; Stop 11/26/18 at 15:44; Status DC Sodium Chloride 1,000 ml @ 125 mls/hr 1X ONCE IV ; Start 11/25/18 at 15:45; Stop 11/25/18 at 23:44; Status DC Sodium Chloride 1,000 ml @ 1,980 mls/hr Q31M IV Last administered on at 20:51; Start 11/25/18 at 20:20; Stop 11/25/18 at 21:20; Status DC Sodium Chloride 500 ml @ 1,000 mls/hr PRN Q30MIN PRN IV SEE COMMENTS; Start at 20:30 Levofloxacin/ Dextrose 100 ml @ 100 mls/hr Q24H IV Last administered on at 21:26; Start 11/25/18 at 21:00; Stop 11/26/18 at 11:30; Status DC Aspirin (Children'S Aspirin) 81 mg DAILY PO Last administered on 12/01/18at 10: 02; Start 11/26/18 at 09:00 Duloxetine HCl (Cymbalta) 30 mg DAILY PO Last administered on 12/01/18at 10:04; Start 11/26/18 at 09:00 Levothyroxine Sodium (Synthroid) 100 mcg DAILY06 PO Last administered on 05:46; Start 11/26/18 at 06:00 Metoprolol Tartrate (Lopressor) 25 mg DAILY PO Last administered on 12/01/18 10:03; Start 11/26/18 at 09:00 Non-Formulary Medication (Biotin ) 10,000 mcg DAILY PO ; Start 11/26/18 at 09:00 ; Status UNV Latanoprost (Xalatan) 1 drop QHS OU Last administered on 11/30/18 20:54; Start 11/25/18 at 21:00 Multivitamins (Thera M Plus) 1 tab DAILY PO Last administered on 12/01/18 10: 02; Start 11/26/18 at 09:00 Enoxaparin Sodium (Lovenox 40mg Syringe) 40 mg Q24H SQ ; Start 11/25/18 at 21:00 Ibuprofen (Motrin) 800 mg 1X ONCE PO Last administered on 11/26/18 11:20; Start 11/26/18 at 11:30; Stop 11/26/18 at 11:31; Status DC Cefepime HCl (Maxipime) 1 gm Q12HR IVP Last administered on 11/27/18 08:35; Start 11/26/18 at 12:00; Stop 11/27/18 at 14:05; Status DC Diphenhydramine HCl (Benadryl) 25 mg PRN Q12HR PRN PO ITCHING Last administered on 11/27/18 10:59; Start 11/26/18 at 13:30 Diphenhydramine HCl (Benadryl) 50 mg 1X ONCE PO Last administered on 14:45; Start 11/26/18 at 13:45; Stop 11/26/18 at 13:46; Status DC Vancomycin HCl 1.5 gm/Sodium Chloride 500 ml @ 250 mls/hr Q12H IV Last administered on 11/27/18 02:41; Start 11/26/18 at 15:00; Stop 11/27/18 at 14:05 ; Status DC Vancomycin HCl (Vanco Per Pharmacy) 1 each PRN DAILY PRN MC SEE COMMENTS Last administered on 3/13/19at 14:38; Start 11/26/18 at 14:45; Stop 11/27/18 at 14:11 ; Status DC Vancomycin HCl (Vancomycin Trough Level) 1 each 1X ONCE MC ; Start 11/28/18 at 02:30; Stop 11/28/18 at 02:30; Status DC Acetaminophen (Tylenol) 650 mg PRN Q4HRS PRN PO fever Last administered on 11/30 09:41; Start 11/26/18 at 18:00 Lidocaine HCl (Glydo (Lidocaine) Jelly) 1 estefany 1X ONCE TP Last administered on 11/27/18 10:58; Start 11/27/18 at 10:45; Stop 11/27/18 at 10:46; Status DC Non-Formulary Medication 1 ea WEEKLY TP Last administered on 11/28/18 20:58; Start 11/28/18 at 20:00 Daptomycin 670 mg/ Sodium Chloride 50 ml @ 100 mls/hr Q24H IV Last administered on 11/27/18at 15:57; Start 11/27/18 at 15:00; Stop 11/28/18 at 10:22 ; Status DC Meropenem 500 mg/ Sodium Chloride 50 ml @ 100 mls/hr Q6HRS IV Last administered on 12/01/18 05:46; Start 11/27/18 at 14:30; Stop 12/01/18 at 11:30 ; Status DC Nystatin (Nystatin Oral Susp) 5 ml TID SWSW Last administered on 12/01/18at 10: 01; Start 11/28/18 at 00:00 Throat Lozenges (Cepacol Sore Throat Lozenge) 1 daniel TID PRN PRN PO SORE THROAT Last administered on 11/28/18 00:12; Start 11/27/18 at 23:45 Potassium Chloride/Water 100 ml @ 100 mls/hr Q1H IV Last administered on 15:18; Start 11/28/18 at 07:30; Stop 11/28/18 at 13:29; Status DC Potassium Chloride (Klor-Con) 20 meq 1X ONCE PO Last administered on at 15:21; Start 11/29/18 at 12:15; Stop 11/29/18 at 12:16; Status DC Clotrimazole (Mycelex-7) 1 estefany DAILY VG Last administered on 11/30/18at 13:23; Start 11/30/18 at 10:45; Stop 12/07/18 at 10:44 Levofloxacin (Levaquin) 500 mg DAILY06 PO Last administered on 12/01/18at 12:25 ; Start 12/01/18 at 12:00 Active Scripts Active Nystatin 100,000 Unit/1 Ml Oral.susp 5 Ml SWSW TID 3 Days Clotrimazole 45 Gm Cream.appl 1 Estefany VG DAILY 3 Days Levaquin (Levofloxacin) 500 Mg Tablet 500 Mg PO DAILY06 7 Days Reported Biotin 10,000 Mcg Capsule 10,000 Mcg PO DAILY Multivitamins (Multivitamin) 1 Each Tablet 1 Each PO DAILY Metoprolol Tartrate 25 Mg Tablet 25 Mg PO DAILY Cymbalta (Duloxetine Hcl) 30 Mg Capsule.dr 1 Cap PO DAILY Aspirin 81 Mg Tab.chew 1 Tab PO DAILY Synthroid (Levothyroxine Sodium) 88 Mcg Tablet 100 Mcg PO DAILY Climara (Estradiol) 1 Each Patch.tdwk Latanoprost 2.5 Ml Drops 1 Drop [facility] Vitals/I & O Vital Sign - Last 24 Hours 11/30/18 11/30/18 11/30/18 11/30/18 14:49 19:30 20:00 23:24 Temp 98.6 99.2 98.7 98.6 99.2 98.7 Pulse 86 89 96 Resp 18 B/P (MAP) 138/80 (99) 126/59 (81) 143/77 (99) Pulse Ox 94 97 96 O2 Delivery Room Air Room Air Room Air Room Air 12/01/18 12/01/18 12/01/18 12/01/18 03:03 07:00 08:00 10:03 Temp 99.1 98.9 99.1 98.9 Pulse 96 96 96 Resp 16 16 B/P (MAP) 136/72 (93) 122/55 (77) 122/55 Pulse Ox 100 97 O2 Delivery Room Air Room Air Room Air 12/01/18 11:00 Temp 98.7 98.7 Pulse 94 Resp 18 B/P (MAP) 130/71 (90) Pulse Ox 100 O2 Delivery Room Air Intake and Output 11/30/18 11/30/18 12/01/18 15:00 23:00 07:00 Intake Total 500 ml 800 ml Balance 500 ml 800 ml HAO DIGGS MD Dec 01, 2018 14:27
[2018-12-01 15:00] VITALS: BP 124/69
[2018-12-01] MEDS ORDERED: HEPARIN PF 500 UNIT/5 ML DISP.SYRIN. IV ONE (15:30)
--- NOTE | 2018-12-01 15:38 | NUR ---
gave pt back her levothyroxine that she brought in to take. it was her own prescription from home. Oleg Bryant RN
--- NOTE | 2018-12-01 16:12 | PDOC ---
PROGRESS NOTES Subjective Subjective HPI - f/u of Marginal zone lymphoma (NHL) ROS - no fever Objective Objective Vital Signs Date Time Temp Pulse Resp B/P (MAP) Pulse Ox O2 Delivery O2 Flow Rate FiO2 12/01/18 15:00 98.6 83 16 124/69 (87) 97 Room Air 98.6 Intake and Output 12/01/18 07:00 Intake Total 1300 ml Balance 1300 ml Intake Oral 1300 ml # Voids 8 Physical Exam Heart: Normal S1, Normal S2 General: Alert, Oriented X3 Lungs: Clear to auscultation Neuro: Normal speech Psych/Mental Status: Mental status NL Assessment Assessment Problems Medical Problems: (1) Fever Status: Acute (2) Sepsis Status: Acute Assessment and Plan: 58-year-old female with marginal zone lymphoma s/p cycle 1 bendamustine and rituximab admitted for fever up to 103 prior to admit, w/ rash since 11/26 Fever: cx neg, on antibiotics, ID is involved, appreciate multidisciplinary assistance DVT prophylaxis: Lovenox, would hold if plts <50 Marginal zone lymphoma (NHL): Chemotherapy as outpt. Rash: likely from bendamustine. Plan solumedrol premedications with C2. Comment Review of Relevant I have reviewed the following items kike (where applicable) has been applied. Labs Laboratory Tests Test 11/30/18 06:00 12/01/18 06:00 White Blood Count 1.2 x10^3/uL (4.0-11.0) 1.5 x10^3/uL (4.0-11.0) Red Blood Count 3.38 x10^6/uL (3.50-5.40) 3.30 x10^6/uL (3.50-5.40) Hemoglobin 9.1 g/dL (12.0-15.5) 9.0 g/dL (12.0-15.5) Hematocrit 27.4 % (36.0-47.0) 26.5 % (36.0-47.0) Mean Corpuscular Volume 81 fL (79-100) 80 fL (79-100) Mean Corpuscular Hemoglobin 27 pg (25-35) 27 pg (25-35) Mean Corpuscular Hemoglobin Concent 33 g/dL (31-37) 34 g/dL (31-37) Red Cell Distribution Width 15.3 % (11.5-14.5) 15.1 % (11.5-14.5) Platelet Count 106 x10^3/uL (140-400) 120 x10^3/uL (140-400) Neutrophils (%) (Auto) 70 % (31-73) 75 % (31-73) Lymphocytes (%) (Auto) 9 % (24-48) 9 % (24-48) Monocytes (%) (Auto) 14 % (0-9) 10 % (0-9) Eosinophils (%) (Auto) 7 % (0-3) 5 % (0-3) Basophils (%) (Auto) 1 % (0-3) 1 % (0-3) Neutrophils # (Auto) 0.9 x10^3uL (1.8-7.7) 1.1 x10^3uL (1.8-7.7) Lymphocytes # (Auto) 0.1 x10^3/uL (1.0-4.8) 0.1 x10^3/uL (1.0-4.8) Monocytes # (Auto) 0.2 x10^3/uL (0.0-1.1) 0.1 x10^3/uL (0.0-1.1) Eosinophils # (Auto) 0.1 x10^3/uL (0.0-0.7) 0.1 x10^3/uL (0.0-0.7) Basophils # (Auto) 0.0 x10^3/uL (0.0-0.2) 0.0 x10^3/uL (0.0-0.2) Sodium Level 143 mmol/L (136-145) Potassium Level 3.8 mmol/L (3.5-5.1) Chloride Level 106 mmol/L (98-107) Carbon Dioxide Level 29 mmol/L (21-32) Anion Gap 8 (6-14) Blood Urea Nitrogen 9 mg/dL (7-20) Creatinine 0.6 mg/dL (0.6-1.0) Estimated GFR (Cockcroft-Gault) 102.7 Glucose Level 105 mg/dL (70-99) Calcium Level 8.0 mg/dL (8.5-10.1) Iron Level 38 ug/dL (50-170) Total Iron Binding Capacity 246 ug/dL (250-450) Iron Saturation 15 % (15-34) Laboratory Tests Test 12/01/18 06:00 White Blood Count 1.5 x10^3/uL (4.0-11.0) Red Blood Count 3.30 x10^6/uL (3.50-5.40) Hemoglobin 9.0 g/dL (12.0-15.5) Hematocrit 26.5 % (36.0-47.0) Mean Corpuscular Volume 80 fL (79-100) Mean Corpuscular Hemoglobin 27 pg (25-35) Mean Corpuscular Hemoglobin Concent 34 g/dL (31-37) Red Cell Distribution Width 15.1 % (11.5-14.5) Platelet Count 120 x10^3/uL (140-400) Neutrophils (%) (Auto) 75 % (31-73) Lymphocytes (%) (Auto) 9 % (24-48) Monocytes (%) (Auto) 10 % (0-9) Eosinophils (%) (Auto) 5 % (0-3) Basophils (%) (Auto) 1 % (0-3) Neutrophils # (Auto) 1.1 x10^3uL (1.8-7.7) Lymphocytes # (Auto) 0.1 x10^3/uL (1.0-4.8) Monocytes # (Auto) 0.1 x10^3/uL (0.0-1.1) Eosinophils # (Auto) 0.1 x10^3/uL (0.0-0.7) Basophils # (Auto) 0.0 x10^3/uL (0.0-0.2) Microbiology 11/27/18 Blood Culture - Preliminary, Resulted NO GROWTH AFTER 4 DAYS 11/25/18 Urine Culture - Final, Complete 11/25/18 Urine Culture Result 1 (DANIAL) - Final, Complete Medications Current Medications Vancomycin HCl (Vanco Per Pharmacy) 1 each 1X ONCE MC Last administered on 09/03at 13:00; Start 11/25/18 at 13:00; Stop 11/25/18 at 13:08; Status DC Levofloxacin/ Dextrose 150 ml @ 100 mls/hr 1X ONCE IV Last administered on 09/03at 14:47; Start 11/25/18 at 13:00; Stop 11/25/18 at 14:29; Status DC Sodium Chloride 1,000 ml @ 166.667 mls/hr Q6H IV Last administered on at 09:13; Start 11/25/18 at 13:00; Stop 11/26/18 at 09:08; Status DC Acetaminophen (Tylenol) 1,000 mg 1X ONCE PO Last administered on 11/25/18at 13: 20; Start 11/25/18 at 13:00; Stop 11/25/18 at 13:06; Status DC Vancomycin HCl 2 gm/Sodium Chloride 500 ml @ 250 mls/hr 1X ONCE IV Last administered on 11/25/18at 16:30; Start 11/25/18 at 13:15; Stop 11/25/18 at 15:14 ; Status DC Ondansetron HCl (Zofran) 4 mg PRN Q8HRS PRN IV NAUSEA/VOMITING Last administered on 11/25/18at 17:02; Start 11/25/18 at 15:45; Stop 11/26/18 at 15:44 ; Status DC Fentanyl Citrate (Fentanyl 2ml Vial) 50 mcg PRN Q1HR PRN IV PAIN; Start at 15:45; Stop 11/26/18 at 15:44; Status DC Acetaminophen (Tylenol) 650 mg PRN Q4HRS PRN PO FEVER Last administered on 11/26at 09:13; Start 11/25/18 at 15:45; Stop 11/26/18 at 15:44; Status DC Sodium Chloride 1,000 ml @ 125 mls/hr 1X ONCE IV ; Start 11/25/18 at 15:45; Stop 11/25/18 at 23:44; Status DC Sodium Chloride 1,000 ml @ 1,980 mls/hr Q31M IV Last administered on at 20:51; Start 11/25/18 at 20:20; Stop 11/25/18 at 21:20; Status DC Sodium Chloride 500 ml @ 1,000 mls/hr PRN Q30MIN PRN IV SEE COMMENTS; Start at 20:30 Levofloxacin/ Dextrose 100 ml @ 100 mls/hr Q24H IV Last administered on at 21:26; Start 11/25/18 at 21:00; Stop 11/26/18 at 11:30; Status DC Aspirin (Children'S Aspirin) 81 mg DAILY PO Last administered on 12/01/18 10: 02; Start 11/26/18 at 09:00 Duloxetine HCl (Cymbalta) 30 mg DAILY PO Last administered on 12/01/18 10:04; Start 11/26/18 at 09:00 Levothyroxine Sodium (Synthroid) 100 mcg DAILY06 PO Last administered on 05:46; Start 11/26/18 at 06:00 Metoprolol Tartrate (Lopressor) 25 mg DAILY PO Last administered on 12/01/18 10:03; Start 11/26/18 at 09:00 Non-Formulary Medication (Biotin ) 10,000 mcg DAILY PO ; Start 11/26/18 at 09:00 ; Status UNV Latanoprost (Xalatan) 1 drop QHS OU Last administered on 11/30/18 20:54; Start 11/25/18 at 21:00 Multivitamins (Thera M Plus) 1 tab DAILY PO Last administered on 12/01/18 10: 02; Start 11/26/18 at 09:00 Enoxaparin Sodium (Lovenox 40mg Syringe) 40 mg Q24H SQ ; Start 11/25/18 at 21:00 Ibuprofen (Motrin) 800 mg 1X ONCE PO Last administered on 11/26/18 11:20; Start 11/26/18 at 11:30; Stop 11/26/18 at 11:31; Status DC Cefepime HCl (Maxipime) 1 gm Q12HR IVP Last administered on 11/27/18 08:35; Start 11/26/18 at 12:00; Stop 11/27/18 at 14:05; Status DC Diphenhydramine HCl (Benadryl) 25 mg PRN Q12HR PRN PO ITCHING Last administered on 11/27/18 10:59; Start 11/26/18 at 13:30 Diphenhydramine HCl (Benadryl) 50 mg 1X ONCE PO Last administered on 14:45; Start 11/26/18 at 13:45; Stop 11/26/18 at 13:46; Status DC Vancomycin HCl 1.5 gm/Sodium Chloride 500 ml @ 250 mls/hr Q12H IV Last administered on 11/27/18 02:41; Start 11/26/18 at 15:00; Stop 11/27/18 at 14:05 ; Status DC Vancomycin HCl (Vanco Per Pharmacy) 1 each PRN DAILY PRN MC SEE COMMENTS Last administered on 11/26/18at 14:38; Start 11/26/18 at 14:45; Stop 11/27/18 at 14:11 ; Status DC Vancomycin HCl (Vancomycin Trough Level) 1 each 1X ONCE MC ; Start 11/28/18 at 02:30; Stop 11/28/18 at 02:30; Status DC Acetaminophen (Tylenol) 650 mg PRN Q4HRS PRN PO fever Last administered on 11/30 09:41; Start 11/26/18 at 18:00 Lidocaine HCl (Glydo (Lidocaine) Jelly) 1 estefany 1X ONCE TP Last administered on 11/27/18 10:58; Start 11/27/18 at 10:45; Stop 11/27/18 at 10:46; Status DC Non-Formulary Medication 1 ea WEEKLY TP Last administered on 11/28/18at 20:58; Start 11/28/18 at 20:00 Daptomycin 670 mg/ Sodium Chloride 50 ml @ 100 mls/hr Q24H IV Last administered on 11/27/18at 15:57; Start 11/27/18 at 15:00; Stop 11/28/18 at 10:22 ; Status DC Meropenem 500 mg/ Sodium Chloride 50 ml @ 100 mls/hr Q6HRS IV Last administered on 12/01/18at 05:46; Start 11/27/18 at 14:30; Stop 12/01/18 at 11:30 ; Status DC Nystatin (Nystatin Oral Susp) 5 ml TID SWSW Last administered on 12/01/18at 10: 01; Start 11/28/18 at 00:00 Throat Lozenges (Cepacol Sore Throat Lozenge) 1 daniel TID PRN PRN PO SORE THROAT Last administered on 11/28/18at 00:12; Start 11/27/18 at 23:45 Potassium Chloride/Water 100 ml @ 100 mls/hr Q1H IV Last administered on at 15:18; Start 11/28/18 at 07:30; Stop 11/28/18 at 13:29; Status DC Potassium Chloride (Klor-Con) 20 meq 1X ONCE PO Last administered on at 15:21; Start 11/29/18 at 12:15; Stop 11/29/18 at 12:16; Status DC Clotrimazole (Mycelex-7) 1 estefany DAILY VG Last administered on 11/30/18at 13:23; Start 11/30/18 at 10:45; Stop 12/07/18 at 10:44 Levofloxacin (Levaquin) 500 mg DAILY06 PO Last administered on 12/01/18at 12:25 ; Start 12/01/18 at 12:00 Heparin Sodium (Porcine) (Hep Lock Adult) 500 unit 1X ONCE IV Last administered on 12/01/18at 15:36; Start 12/01/18 at 15:30; Stop 12/01/18 at 15:31 ; Status DC Active Scripts Active Nystatin 100,000 Unit/1 Ml Oral.susp 5 Ml SWSW TID 3 Days Clotrimazole 45 Gm Cream.appl 1 Estefany VG DAILY 3 Days Levaquin (Levofloxacin) 500 Mg Tablet 500 Mg PO DAILY06 7 Days Reported Biotin 10,000 Mcg Capsule 10,000 Mcg PO DAILY Multivitamins (Multivitamin) 1 Each Tablet 1 Each PO DAILY Metoprolol Tartrate 25 Mg Tablet 25 Mg PO DAILY Cymbalta (Duloxetine Hcl) 30 Mg Capsule.dr 1 Cap PO DAILY Aspirin 81 Mg Tab.chew 1 Tab PO DAILY Synthroid (Levothyroxine Sodium) 88 Mcg Tablet 100 Mcg PO DAILY Climara (Estradiol) 1 Each Patch.tdwk Latanoprost 2.5 Ml Drops 1 Drop [facility] Vitals/I & O Vital Sign - Last 24 Hours 11/30/18 11/30/18 11/30/18 12/01/18 19:30 20:00 23:24 03:03 Temp 99.2 98.7 99.1 99.2 98.7 99.1 Pulse 89 96 96 Resp 16 B/P (MAP) 126/59 (81) 143/77 (99) 136/72 (93) Pulse Ox 97 96 100 O2 Delivery Room Air Room Air Room Air Room Air 12/01/18 12/01/18 12/01/18 12/01/18 07:00 08:00 10:03 11:00 Temp 98.9 98.7 98.9 98.7 Pulse 96 96 94 Resp 16 18 B/P (MAP) 122/55 (77) 122/55 130/71 (90) Pulse Ox 97 100 O2 Delivery Room Air Room Air Room Air 12/01/18 15:00 Temp 98.6 98.6 Pulse 83 Resp 16 B/P (MAP) 124/69 (87) Pulse Ox 97 O2 Delivery Room Air Intake and Output 11/30/18 11/30/18 12/01/18 15:00 23:00 07:00 Intake Total 500 ml 800 ml Balance 500 ml 800 ml SANGEETA HERNANDEZ MD Dec 01, 2018 16:12
--- NOTE | 2018-12-01 16:14 | NUR ---
pt was discharged home for self care. gave her the 3 scripts to take to the pharm. she was walked out by David XIE to the main entrance to be driven home by her . she was advised to see Dr Luis within one week of discahrge and also to wear a mask if she was to be out in public. Oleg Bryant RN
--- NOTE | 2018-12-01 23:07 | PDOC3 ---
Discharge Summary Visit Information Date of Admission: Nov 25, 2018 Date of Discharge: Dec 01, 2018 Admitting Diagnosis: Fever Final Diagnosis Problems Medical Problems: (1) Fever Status: Acute (2) Sepsis Status: Acute Brief Hospital Course Allergies Allergies Coded Allergies Type Severity Reaction Last Updated Verified Penicillins Allergy Severe DIFFICULTY BREATHING 05/07/18 Yes Sulfa (Sulfonamide Antibiotics) Allergy Intermediate 05/07/18 Yes oxycodone Allergy Intermediate Itching 05/07/18 Yes prednisone Allergy Intermediate 05/07/18 Yes Vital Signs Vital Signs Date Time Temp Pulse Resp B/P (MAP) Pulse Ox O2 Delivery O2 Flow Rate FiO2 12/01/18 15:00 98.6 83 16 124/69 (87) 97 Room Air 98.6 Lab Results Laboratory Tests Test 11/30/18 06:00 12/01/18 06:00 White Blood Count 1.2 x10^3/uL (4.0-11.0) 1.5 x10^3/uL (4.0-11.0) Red Blood Count 3.38 x10^6/uL (3.50-5.40) 3.30 x10^6/uL (3.50-5.40) Hemoglobin 9.1 g/dL (12.0-15.5) 9.0 g/dL (12.0-15.5) Hematocrit 27.4 % (36.0-47.0) 26.5 % (36.0-47.0) Mean Corpuscular Volume 81 fL (79-100) 80 fL (79-100) Mean Corpuscular Hemoglobin 27 pg (25-35) 27 pg (25-35) Mean Corpuscular Hemoglobin Concent 33 g/dL (31-37) 34 g/dL (31-37) Red Cell Distribution Width 15.3 % (11.5-14.5) 15.1 % (11.5-14.5) Platelet Count 106 x10^3/uL (140-400) 120 x10^3/uL (140-400) Neutrophils (%) (Auto) 70 % (31-73) 75 % (31-73) Lymphocytes (%) (Auto) 9 % (24-48) 9 % (24-48) Monocytes (%) (Auto) 14 % (0-9) 10 % (0-9) Eosinophils (%) (Auto) 7 % (0-3) 5 % (0-3) Basophils (%) (Auto) 1 % (0-3) 1 % (0-3) Neutrophils # (Auto) 0.9 x10^3uL (1.8-7.7) 1.1 x10^3uL (1.8-7.7) Lymphocytes # (Auto) 0.1 x10^3/uL (1.0-4.8) 0.1 x10^3/uL (1.0-4.8) Monocytes # (Auto) 0.2 x10^3/uL (0.0-1.1) 0.1 x10^3/uL (0.0-1.1) Eosinophils # (Auto) 0.1 x10^3/uL (0.0-0.7) 0.1 x10^3/uL (0.0-0.7) Basophils # (Auto) 0.0 x10^3/uL (0.0-0.2) 0.0 x10^3/uL (0.0-0.2) Sodium Level 143 mmol/L (136-145) Potassium Level 3.8 mmol/L (3.5-5.1) Chloride Level 106 mmol/L (98-107) Carbon Dioxide Level 29 mmol/L (21-32) Anion Gap 8 (6-14) Blood Urea Nitrogen 9 mg/dL (7-20) Creatinine 0.6 mg/dL (0.6-1.0) Estimated GFR (Cockcroft-Gault) 102.7 Glucose Level 105 mg/dL (70-99) Calcium Level 8.0 mg/dL (8.5-10.1) Iron Level 38 ug/dL (50-170) Total Iron Binding Capacity 246 ug/dL (250-450) Iron Saturation 15 % (15-34) Laboratory Tests Test 12/01/18 06:00 White Blood Count 1.5 x10^3/uL (4.0-11.0) Red Blood Count 3.30 x10^6/uL (3.50-5.40) Hemoglobin 9.0 g/dL (12.0-15.5) Hematocrit 26.5 % (36.0-47.0) Mean Corpuscular Volume 80 fL (79-100) Mean Corpuscular Hemoglobin 27 pg (25-35) Mean Corpuscular Hemoglobin Concent 34 g/dL (31-37) Red Cell Distribution Width 15.1 % (11.5-14.5) Platelet Count 120 x10^3/uL (140-400) Neutrophils (%) (Auto) 75 % (31-73) Lymphocytes (%) (Auto) 9 % (24-48) Monocytes (%) (Auto) 10 % (0-9) Eosinophils (%) (Auto) 5 % (0-3) Basophils (%) (Auto) 1 % (0-3) Neutrophils # (Auto) 1.1 x10^3uL (1.8-7.7) Lymphocytes # (Auto) 0.1 x10^3/uL (1.0-4.8) Monocytes # (Auto) 0.1 x10^3/uL (0.0-1.1) Eosinophils # (Auto) 0.1 x10^3/uL (0.0-0.7) Basophils # (Auto) 0.0 x10^3/uL (0.0-0.2) Brief Hospital Course 58-year-old female with history of recently diagnosed marginal zone lymphoma who has had one round of chemotherapy, who presented with 2-day history of fever. The patient denied any nausea, vomiting, diarrhea. Denied any chest pain, shortness of breath, abdominal pains, sore throat or headaches. The patient did break out in rash after vancomycin therapy and was neutropenic , treated with cefepime and eventually invanz. Had 7 days of antibiotics and was eventually discharged on 7 days of levaquin for neutropenic fever. Seen by ID and hematology/oncology while inpatient. sepsis neutropenic fever dry rash lymphoma on chemo, marginal zone lymphoma obesity, BMI 36 hypokalemia, Microbiology 11/25/18 Blood Culture - Preliminary, Resulted NO GROWTH AFTER 2 DAYS 11/25/18 Urine Culture - Final, Complete 11/25/18 Urine Culture Result 1 (DANIAL) - Final, Complete 1. Fever. improved 2. Neutropenia from chemotherapy. 3. Lymphomas, on chemotherapy. 4. Hypertension. 5. Hypothyroidism. Discussed with ID and oncology ok for d/c on 7 days of levaquin Greater than 30 minutes spent on discharge. Discharge Information Condition at Discharge: Improved Follow Up: Weeks (2) Disposition/Orders: D/C to Home Scheduled Aspirin (Aspirin) 81 Mg Tab.chew, 1 TAB PO DAILY, #30 Ref 3 (Reported) Entered as Reported by: BRAD RODRIGUES on 02/12/17 1439 Last Action: Continued on 11/25/182025 by BRIAN DARLING MD Biotin (Biotin) 10,000 Mcg Capsule, 10,000 MCG PO DAILY for supplement, ( Reported) Entered as Reported by: RADHAMES GARVIN on 10/10/18 1150 Last Action: Converted on 11/25/182025 by BRIAN DARLING MD Clotrimazole (Clotrimazole) 45 Gm Cream.appl, 1 GRAYSON VG DAILY for vaginitis for 3 Days, #3 Prescribed by: HAO DIGGS MD on 12/01/18 1309 Duloxetine Hcl (Cymbalta) 30 Mg Capsule.dr, 1 CAP PO DAILY, #30 Ref 5 (Reported) Entered as Reported by: ADRIANE SULLIVAN on 04/17/18 0440 Last Action: Continued on 11/25/182025 by BRIAN DARLING MD Latanoprost (Latanoprost) 2.5 Ml Drops, 1 DROP EACHEYE QHS, #2.5 Ref 6 (Reported ) Entered as Reported by: SUZANNA DE PAZ on 02/11/17 0452 Last Action: Converted on 11/25/182025 by BRIAN DARLING MD Levofloxacin (Levaquin) 500 Mg Tablet, 500 MG PO DAILY06 for Neutropenic fever for 7 Days, #7 Prescribed by: HAO DIGGS MD on 12/01/18 1309 Levothyroxine Sodium (Synthroid) 88 Mcg Tablet, 100 MCG PO DAILY, #30 (Reported) Entered as Reported by: SUZANNA DE PAZ on 02/11/17 0501 Last Action: Continued on 11/25/182025 by BRIAN DARLING MD Metoprolol Tartrate (Metoprolol Tartrate) 25 Mg Tablet, 25 MG PO DAILY for FOR HYPERTENSION, #60 Ref 0 (Reported) Entered as Reported by: CHAPO LLANES on 04/17/18 1050 Last Action: Continued on 11/25/182025 by BRIAN DARLING MD Multivitamin (Multivitamins) 1 Each Tablet, 1 EACH PO DAILY, (Reported) Entered as Reported by: IZA LEE on 05/06/18 1147 Last Action: Converted on 11/25/182025 by BRIAN DARLING MD Nystatin (Nystatin) 100,000 Unit/1 Ml Oral.susp, 5 ML SWSW TID for thrush for 3 Days, #9 Prescribed by: HAO DIGGS MD on 12/01/18 1309 Miscellaneous Medications Estradiol (Climara) 1 Each Patch.tdwk, #4 (Reported) Entered as Reported by: SUZANNA DE PAZ on 02/11/17 0501 Last Action: Converted on 11/27/18 1241 by HAO OSORIO MD Dec 01, 2018 23:07
== END 2018-12-01 16:18 | disposition home or self-care (01) | DRG 872 ==
LOC: ER 11:47 → 6 SOUTH 14:16
PROVIDERS: ADMIT Family Medicine; ATTEND Family Medicine
DX: A41.9 Sepsis, unspecified organism (principal); C85.90 Non-Hodgkin lymphoma, unspecified, unspecified site; D70.1 Agranulocytosis secondary to cancer chemotherapy; D69.6 Thrombocytopenia, unspecified; I48.91 Unspecified atrial fibrillation; I10 Essential (primary) hypertension; E03.9 Hypothyroidism, unspecified; H40.9 Unspecified glaucoma; M19.90 Unspecified osteoarthritis, unspecified site; T45.1X5A Adverse effect of antineoplastic and immunosuppressive drugs, initial encounter; E66.9 Obesity, unspecified; E87.6 Hypokalemia; R50.81 Fever presenting with conditions classified elsewhere; I25.10 Atherosclerotic heart disease of native coronary artery without angina pectoris; Z90.710 Acquired absence of both cervix and uterus; Z88.6 Allergy status to analgesic agent; Z88.0 Allergy status to penicillin; Z88.2 Allergy status to sulfonamides; Z88.8 Allergy status to other drugs, medicaments and biological substances; Z90.49 Acquired absence of other specified parts of digestive tract; Z82.49 Family history of ischemic heart disease and other diseases of the circulatory system; Z68.36 Body mass index [BMI] 36.0-36.9, adult
CPT/HCPCS: 36415; 71045; 80048; 80053; 81001; 82553; 82565; 83540; 83550; 83605; 83735; 84145; 85007; 85025; 85379; 85384; 85610; 85730; 87040; 87086; 87804; 93005; J0692; J0878; J1956; J2185; J2405; J3370; J3480; J7030; J7040; Q0163; 99285-25

== ENCOUNTER 2018-12-02 23:15 | Inpatient (IN) | payer BC ==
[~2018-12-02] VITALS: Ht 172.7 cm; Wt 113.5 kg
[~2018-12-02 23:15] MED LIST changes: +CLOT45CR4 VG; +LEVO500T59 PO; +NYST100054 SWSW
[2018-12-02] MEDS ORDERED: IV NORMAL SALINE 1000ML BAG 1,000 ML IV ONE ×2 (23:30)
[2018-12-02] MEDS ORDERED: VANCOMYCIN PER PHARMACY MC PRN (23:30)
[2018-12-03] VITALS (38 sets, daily range): BP systolic 65–131; BP diastolic 36–67
[2018-12-03] MEDS ORDERED: MEROPENEM 1 GM in IV NORMAL SALINE 100ML 100 ML IV SCH ×2
[2018-12-03 00:20] LABS: PROTHROMBIN TIME PATIENT 14.9 SEC (11.7-14.0)
[2018-12-03] MEDS ORDERED: VANCOMYCIN 2 GM in IV NORMAL SALINE 500ML BAG 500 ML IV ONE (00:30)
[2018-12-03] MEDS ORDERED: CONTRAST GIVEN. MC PRN (00:30)
[2018-12-03] MEDS ORDERED: IOHEXOL 300 MG/ML 100ML VIAL. IV ONE (01:00)
[2018-12-03] MEDS ORDERED: IV NORMAL SALINE 1000ML BAG 1,000 ML IV ONE (01:00)
[2018-12-03 01:06] LABS: INFLUENZA A PATIENT NEGATIVE (NEGATIVE); INFLUENZA B PATIENT NEGATIVE (NEGATIVE)
[2018-12-03 01:09] LABS: CALCIUM 7.1 mg/dL (8.5-10.1); CREATININE 2.7 mg/dL (0.6-1.0); GFR 18.1; POTASSIUM 3.8 mmol/L (3.5-5.1)
[2018-12-03 01:20] LABS: BASO % 0 % (0-3); EOS % 1 % (0-3); HEMATOCRIT 29.8 % (36.0-47.0); HEMOGLOBIN 9.6 g/dL (12.0-15.5); LYMPH % 0 % (24-48); MEAN CORPUSCULAR HEMOGLOBIN 26 pg (25-35); MEAN CORPUSCULAR HGB CONC 32 g/dL (31-37); MEAN CORPUSCULAR VOLUME 81 fL (79-100); MONO # 0.1 x10^3/uL (0.0-1.1); MONO % 3 % (0-9); NEUT # 4.3 x10^3uL (1.8-7.7); NEUT % 96 % (31-73); PLATELET COUNT 170 x10^3/uL (140-400); RED BLOOD COUNT 3.67 x10^6/uL (3.50-5.40); WHITE BLOOD COUNT 4.5 x10^3/uL (4.0-11.0)
[2018-12-03 01:21] LABS: ALBUMIN 1.7 g/dL (3.4-5.0); ALBUMIN/GLOBULIN RATIO 0.8 (1.0-1.7); TOTAL BILIRUBIN 4.6 mg/dL (0.2-1.0); TOTAL PROTEIN 3.9 g/dL (6.4-8.2)
[2018-12-03] MEDS ORDERED: NOREPINEPHRIN 8MG/250ML PREMIX 250 ML IV ONE (01:30)
[2018-12-03 01:36] LABS: MAGNESIUM 1.2 mg/dL (1.8-2.4)
--- NOTE | 2018-12-03 01:59 | RAD ---
INDICATION: eval for sepsis; fever; Omni 300, 75ml COMPARISON: June 23, 2018 TECHNIQUE: Axial CT images obtained through the chest, abdomen and pelvis with contrast. One or more of the following individualized dose reduction techniques were utilized for this examination: 1. Automated exposure control; 2. Adjustment of the mA and/or kV according to patient size; 3. Use of iterative reconstruction technique. FINDINGS: Chest: No evidence of pneumothorax. Minimal probable dependent atelectasis. Port with tip in right atrial region. There are some prominent lymph nodes in the mediastinum. For example precarinal region measuring up to about 11 mm short axis. Degenerative changes spine. Thoracic aorta is not aneurysmal. Portion of a ascending thoracic aorta is obscured by motion. Abdomen and pelvis: Abdominal aorta not aneurysmal. Postcholecystectomy changes. No peripancreatic fluid collection. Splenomegaly. No left-sided hydronephrosis. Urinary bladder is decompressed. No right-sided hydronephrosis. Indistinctness adjacent to urinary bladder. No definite periappendiceal inflammation. No dilated loops of bowel to suggest obstruction. Degenerative changes of the spine with central canal neural foraminal stenosis. IMPRESSION: 1. Splenomegaly is identified. 2. Urinary bladder is not very distended but there is some mild indistinctness of fat adjacent to it. Nonspecific in nature but would correlate with symptoms to ensure there is not a pathologic cause such as mild cystitis. 3. There is some apparent wall thickening of the colon. The colon is not very distended therefore it is possible that this is secondary to lack of distention but if the patient has appropriate symptoms colitis is possible. Electronically signed by: John Watt MD (12/03/2018 1:55 AM) [facility]
[2018-12-03] MEDS ORDERED: ASPIRIN CHEWABLE 81 MG TABLET. PO ONE (02:00)
[2018-12-03] MEDS ORDERED: MAGNESIUM SULFATE 1GM 100 ML IV ONE (02:00)
[2018-12-03] MEDS ORDERED: diphenhydrAMINE 50 MG/ML VIAL IVP ONE (02:00)
[2018-12-03] MEDS: IV NORMAL SALINE 1000ML BAG 1,000 ML IV SCH ×6 (03:53→22:12)
--- NOTE | 2018-12-03 04:36 | PHYS DOC ---
Past Medical History Past Medical History: A-Fib, Glaucoma, Hypothyroid Additional Past Medical Histor: A-FIB W RVR Past Surgical History: Hysterectomy, Other Additional Past Surgical Histo: SINUS SURGERY ,R FOOT, L WRIST, port insertion , bone marrow biopsy Alcohol Use: None Drug Use: None Adult General Chief Complaint Chief Complaint: FEVER HPI HPI Patient is a 58 year old [female presents the emergency room with generalized weakness fevers or 103. She just was here all last week she was on IV antibiotics for neutropenic fever last chemotherapy was November 16 She she tells us in the ER. Apparently today she had profuse vomiting and diarrhea 5 episodes of these possibly more she doesn't think there was any blood but she is really not sure what looked like. Currently is denying any pain Patient does not have a headache no sore throat she did have thrush recently but that is getting better Review of Systems Review of Systems Eyes: Denies change in visual acuity, redness, or eye pain [] HENT: Denies nasal congestion or sore throat [] Neurologic: Denies headache, focal weakness or sensory changes [] All other systems were reviewed and found to be within normal limits, except as documented in this note. Current Medications Current Medications Current Medications Medications (Trade) Dose Ordered Sig/Angeline Start Time Stop Time Status Last Admin Dose Admin Info (CONTRAST GIVEN -- Rx MONITORING) 1 each PRN DAILY PRN 12/03/18 00:30 12/05/18 00:29 Iohexol (Omnipaque 300 Mg/ml) 75 ml 1X ONCE 12/03/18 01:00 12/03/18 01:01 DC 12/03/18 00:41 75 ML Meropenem 1 gm/ Sodium Chloride 100 ml @ 200 mls/hr Q8HRS 12/03/18 00:00 12/03/18 03:21 DC 12/02/18 23:51 200 MLS/HR Sodium Chloride 1,000 ml @ 1,000 mls/hr 1X ONCE 12/03/18 01:00 12/03/18 01:59 DC 12/03/18 01:08 1,000 MLS/HR Vancomycin HCl (Vanco Per Pharmacy) 1 each PRN DAILY PRN 12/02/18 23:30 12/03/18 03:45 1 EACH Vancomycin HCl 2 gm/Sodium Chloride 500 ml @ 250 mls/hr 1X ONCE 12/03/18 00:30 12/03/18 02:29 DC 12/03/18 00:12 150 MLS/HR Allergies Allergies Allergies Coded Allergies Type Severity Reaction Last Updated Verified Penicillins Allergy Severe DIFFICULTY BREATHING 05/07/18 Yes Sulfa (Sulfonamide Antibiotics) Allergy Intermediate 05/07/18 Yes oxycodone Allergy Intermediate Itching 05/07/18 Yes prednisone Allergy Intermediate 05/07/18 Yes Physical Exam Physical Exam Constitutional: ill appearing HENT: Normocephalic, atraumatic, bilateral external ears normal, oropharynx moist, no oral exudates, nose normal. [] Eyes: PERRLA, , conjunctiva normal, no discharge. [] Neck: Normal range of motion, no tenderness, supple, no stridor. [] Cardiovascular:tachycardic Lungs & Thorax: Bilateral breath sounds clear to auscultation [] Abdomen: Bowel sounds normal, soft, no tenderness, no masses, no pulsatile masses. [] Skin: erythematous rash noted diffusely, with some uritcarial component on the back Back: No tenderness, no CVA tenderness. [] Extremities: No tenderness, no cyanosis, no clubbing, ROM intact,2 plus edema Neurologic: Alert and oriented X 3, normal motor function, normal sensory function, no focal deficits noted. [] Psychologic: Affect normal, judgement normal, mood normal. [] Current Patient Data Vital Signs Vital Signs Date Time Temp Pulse Resp B/P (MAP) Pulse Ox O2 Delivery O2 Flow Rate FiO2 12/03/18 01:11 114 13 78/39 (52) 94 12/02/18 23:56 Room Air 12/02/18 23:30 100.2 100.2 Lab Values Laboratory Tests Test 12/02/18 23:30 12/03/18 00:45 Prothrombin Time 14.9 SEC (11.7-14.0) H Prothrombin Time INR 1.2 (0.8-1.1) H Lactic Acid Level 6.1 mmol/L (0.4-2.0) *H Influenza Type A Antigen Negative (NEGATIVE) Influenza Type B Antigen Negative (NEGATIVE) White Blood Count 4.5 x10^3/uL (4.0-11.0) Red Blood Count 3.67 x10^6/uL (3.50-5.40) Hemoglobin 9.6 g/dL (12.0-15.5) L Hematocrit 29.8 % (36.0-47.0) L Mean Corpuscular Volume 81 fL (79-100) Mean Corpuscular Hemoglobin 26 pg (25-35) Mean Corpuscular Hemoglobin Concent 32 g/dL (31-37) Red Cell Distribution Width 15.0 % (11.5-14.5) H Platelet Count 170 x10^3/uL (140-400) Neutrophils (%) (Auto) 96 % (31-73) H Lymphocytes (%) (Auto) 0 % (24-48) L Monocytes (%) (Auto) 3 % (0-9) Eosinophils (%) (Auto) 1 % (0-3) Basophils (%) (Auto) 0 % (0-3) Neutrophils # (Auto) 4.3 x10^3uL (1.8-7.7) Lymphocytes # (Auto) 0.0 x10^3/uL (1.0-4.8) L Monocytes # (Auto) 0.1 x10^3/uL (0.0-1.1) Eosinophils # (Auto) 0.0 x10^3/uL (0.0-0.7) Basophils # (Auto) 0.0 x10^3/uL (0.0-0.2) Platelet Estimate Pending Sodium Level 137 mmol/L (136-145) Potassium Level 3.8 mmol/L (3.5-5.1) Chloride Level 103 mmol/L (98-107) Carbon Dioxide Level 20 mmol/L (21-32) L Anion Gap 14 (6-14) Blood Urea Nitrogen 24 mg/dL (7-20) H Creatinine 2.7 mg/dL (0.6-1.0) H Estimated GFR (Cockcroft-Gault) 18.1 BUN/Creatinine Ratio 9 (6-20) Glucose Level 233 mg/dL (70-99) H Calcium Level 7.1 mg/dL (8.5-10.1) L Magnesium Level 1.2 mg/dL (1.8-2.4) L Total Bilirubin 4.6 mg/dL (0.2-1.0) H Aspartate Amino Transferase (AST) 76 U/L (15-37) H Alanine Aminotransferase (ALT) 90 U/L (14-59) H Alkaline Phosphatase 170 U/L (46-116) H Creatine Kinase 63 U/L (26-192) Troponin I Quantitative 0.161 ng/mL (0.000-0.055) Total Protein 3.9 g/dL (6.4-8.2) L Albumin 1.7 g/dL (3.4-5.0) L Albumin/Globulin Ratio 0.8 (1.0-1.7) L Lipase 96 U/L (73-393) Procalcitonin > 125.00 ng/mL (0.00-0.10) H Laboratory Tests 12/03/18 00:45 Laboratory Tests 12/03/18 00:45 EKG EKG []EKG shows a sinus tachycardia rate of 146 compared to old EKG it is much faster but no obvious STEMI was identified Radiology/Procedures Radiology/Procedures [] Impressions: Chest x-ray my interpretation no obvious pneumonia seen Course & Med Decision Making Course & Med Decision Making Pertinent Labs and Imaging studies reviewed. (See chart for details) []58-year-old female presenting with septic shock most likely. ER course: I did note shortly after arrival that the patient in the last 24 hours and had a normal creatinine I wanted given the history of vomiting and diarrhea and her history of being immunocompromised a stat CT scan abdomen and pelvis to rule out a surgical etiology of her septic shock. per the protocol here pt had had very recent creatinine normal and no underlying renal disease, so she met criteria to receive contrast. there was also a delay in obtaining labs due to label cutter requesting a redraw. ultimately, workup showed: No neutropenia I suspect multisystem organ dysfunction the LFTs the creatinine the troponin are all elevated. We are still waiting on a urinalysis We gave her 3 L of normal saline, she was still hypotensive we initiated Levophed. ct a/p showed possible colitis, and stranding around the bladder. I spoke with Dr. damon from [place] at 215 am, who agrees with vanc and meropenem for now Critical care time was 50 minutes exclusive of procedures. Dragon Disclaimer Dragon Disclaimer This electronic medical record was generated, in whole or in part, using a voice recognition dictation system. Departure Departure Impression: Primary Impression: Septic shock Disposition: ADMITTED INPATIENT Condition: CRITICAL Referrals: ISRAEL QUIÑONES MD (PCP) Date and Time of Reassessment Date: May 07, 2018 Time: 02:45 Fluid Challenge Is the fluid challenge complet: Yes Blood Culture TIme: 23:30 Time Antibiotics Given: 00:00 Vital Signs Vital Signs: Vital Signs Date Time Temp Pulse Resp B/P (MAP) Pulse Ox O2 Delivery O2 Flow Rate FiO2 12/03/18 01:11 114 13 78/39 (52) 94 12/02/18 23:56 Room Air 12/02/18 23:30 100.2 100.2 Temperature Source: Oral Respirations Respiratory Effort: Normal Respiratory Pattern: Normal Cardiovascular Pulse Rhythm: Regular (tachycardic) Heart: S1 and S2 normal Lung Sounds Breath Sounds: Clear Capillary Refil Capillary Refill: Rt Hand < 3 seconds Peripheral Pulse Pulse Location: Radial Pulse Strength: Weak (1+) Pulse Assessment Method: Monitor Integumentary Skin: Warm, Dry Skin Turgor: Normal Skin Color: warm, dry MICHAEL JOHNSON MD Dec 03, 2018 04:36
[2018-12-03] MEDS ORDERED: diphenhydrAMINE 50 MG/ML VIAL IVP PRN (04:45)
[2018-12-03 04:56] LABS: % BANDS 38 % (0-9); % EOS 1 % (0-5); % MONOS 6 % (0-10); % SEGS 55 % (35-66)
[2018-12-03 04:57] LABS: OVALOCYTES OCC; PLT ESTIMATE ADEQUATE (ADEQUATE); TOXIC VACUOLATION SLIGHT
[2018-12-03] MEDS ORDERED: IOHEXOL 300 MG/ML 100ML VIAL. ONE (06:01)
--- NOTE | 2018-12-03 06:01 | EKG ---
[facility] [address] [place] [address] Test Date: 2018-12-02 Test Time: 23:33:33 Pat Name: DEVAN LIU Department: Room: 103 1 Gender: F [employer] C[employer] Machine: : [id number] Requested By: MICHAEL JOHNSON Order Number: [id number] Reading MD: Balaji Sue MD Measurements Intervals [place] Rate: 146 P: 32 [place]: 96 QRS: -16 QRSD: 74 T: 48 QT: 288 QTc: 450 Interpretive Statements SINUS TACHYCARDIA Electronically Signed On 12-05-2018 16:15:31 CDT by Balaji Sue MD
--- NOTE | 2018-12-03 07:37 | RAD ---
Indication:fever TECHNIQUE:Portable AP chest X-ray COMPARISON:Study from the 11/25/2018 FINDINGS: Right chest wall Chemo-Port is seen with its tip in the SVC. Heart is normal in size. Lungs are clear. No pneumothorax or effusion. Visualized bony thorax is within normal limits. IMPRESSION: No acute pulmonary process. Electronically signed by: Jh Boinlla DO (12/03/2018 7:34 AM) [facility]
[2018-12-03] MEDS ORDERED: MORPHINE SULFATE 2 MG/ML VIAL. IV PRN (07:45)
[2018-12-03] MEDS ORDERED: 0.9 % SODIUM CHLORIDE 10 ML DISP.SYRIN. IV PRN (07:45)
[2018-12-03] MEDS ORDERED: oxyCODONE/APAP 5/325 1 TAB TABLET PO PRN (07:45)
--- NOTE | 2018-12-03 07:56 | PDOC ---
Infectious Disease Note Subjective Subjective Pt is known to us, returned with n/v and fever. Was found to have lactic acidosis, hypotension and on vasopressors. pt is awake , says is feeling ok now, did have a lot of n/v and diarrhea yesterday am, then sleept all day was wiped out and woke last night with 103 fever. SOLEDAD ROWE denies headache, chest pain, sob, abd pain PMH , reviewed, pt with lymphoma and had only one round of chemo, with Bendamustin and Rituximab SH : has been out of county to [facility] for 2 wks in [place] [facility] Vital Sign Vital Signs Vital Signs Date Time Temp Pulse Resp B/P (MAP) Pulse Ox O2 Delivery O2 Flow Rate FiO2 12/03/18 02:50 100.0 114 18 73/40 (51) 94 Room Air 100.0 Physical Exam PHYSICAL EXAM GENERAL: Propped up in bed, awake, NAD HEENT: Oral cavity clear, no thrush or lesions NECK: Supple, no JVP, no lymphadenopathy. LUNGS: Clear. HEART: S1, S2 regular. ABDOMEN: Obese, soft and nontender EXTREMITIES: No edema or cyanosis. SKIN: Maculopapular rash all over the body OBSTETRICIAN AND GYNAECOLOGIST: Alert, responds appropriately Port-A-Cath without signs of any complications . Labs Lab Laboratory Tests Test 12/02/18 23:30 12/03/18 00:45 12/03/18 03:12 Prothrombin Time 14.9 SEC (11.7-14.0) Prothromb Time International Ratio 1.2 (0.8-1.1) Lactic Acid Level 6.1 mmol/L (0.4-2.0) 3.0 mmol/L (0.4-2.0) Influenza Type A Antigen Negative (NEGATIVE) Influenza Type B Antigen Negative (NEGATIVE) White Blood Count 4.5 x10^3/uL (4.0-11.0) Red Blood Count 3.67 x10^6/uL (3.50-5.40) Hemoglobin 9.6 g/dL (12.0-15.5) Hematocrit 29.8 % (36.0-47.0) Mean Corpuscular Volume 81 fL (79-100) Mean Corpuscular Hemoglobin 26 pg (25-35) Mean Corpuscular Hemoglobin Concent 32 g/dL (31-37) Red Cell Distribution Width 15.0 % (11.5-14.5) Platelet Count 170 x10^3/uL (140-400) Neutrophils (%) (Auto) 96 % (31-73) Lymphocytes (%) (Auto) 0 % (24-48) Monocytes (%) (Auto) 3 % (0-9) Eosinophils (%) (Auto) 1 % (0-3) Basophils (%) (Auto) 0 % (0-3) Neutrophils # (Auto) 4.3 x10^3uL (1.8-7.7) Lymphocytes # (Auto) 0.0 x10^3/uL (1.0-4.8) Monocytes # (Auto) 0.1 x10^3/uL (0.0-1.1) Eosinophils # (Auto) 0.0 x10^3/uL (0.0-0.7) Basophils # (Auto) 0.0 x10^3/uL (0.0-0.2) Segmented Neutrophils % 55 % (35-66) Band Neutrophils % 38 % (0-9) Monocytes % 6 % (0-10) Eosinophils % 1 % (0-5) Toxic Vacuolation Slight Platelet Estimate Adequate (ADEQUATE) Giant Platelets Occ Ovalocytes Occ Sodium Level 137 mmol/L (136-145) Potassium Level 3.8 mmol/L (3.5-5.1) Chloride Level 103 mmol/L (98-107) Carbon Dioxide Level 20 mmol/L (21-32) Anion Gap 14 (6-14) Blood Urea Nitrogen 24 mg/dL (7-20) Creatinine 2.7 mg/dL (0.6-1.0) Estimated GFR (Cockcroft-Gault) 18.1 BUN/Creatinine Ratio 9 (6-20) Glucose Level 233 mg/dL (70-99) Calcium Level 7.1 mg/dL (8.5-10.1) Magnesium Level 1.2 mg/dL (1.8-2.4) Total Bilirubin 4.6 mg/dL (0.2-1.0) Aspartate Amino Transf (AST/SGOT) 76 U/L (15-37) Alanine Aminotransferase (ALT/SGPT) 90 U/L (14-59) Alkaline Phosphatase 170 U/L (46-116) Creatine Kinase 63 U/L (26-192) Troponin I Quantitative 0.161 ng/mL (0.000-0.055) Total Protein 3.9 g/dL (6.4-8.2) Albumin 1.7 g/dL (3.4-5.0) Albumin/Globulin Ratio 0.8 (1.0-1.7) Lipase 96 U/L (73-393) Procalcitonin > 125.00 ng/mL (0.00-0.10) Micro last adm culture neg Objective Assessment Fever Lactic acidosis Rash ? from Bendamustin Dehydration ELISE Hypotension on vasopressors Marginal zone lymphoma Plan Plan of Care dapto, meropenem and cipro and micafungin workup d/w pt and d/w ER physician fluids supportive care ELVIS CARMONA MD Dec 03, 2018 07:56
[2018-12-03] MEDS ORDERED: LEVOTHYROXINE 100 MCG TABLET PO SCH (08:00)
[2018-12-03] MEDS: MEROPENEM 1 GM in IV NORMAL SALINE 100ML 100 ML IV SCH ×2 (08:45→20:33)
[2018-12-03] MEDS: CIPROFLOXACIN 400MG PREMIX 200 ML IV SCH ×2 (08:50→20:33)
[2018-12-03] MEDS: CLOTRIMAZOLE 1% VAGINAL CREAM 45GM TUBE. VG SCH (09:00)
[2018-12-03] MEDS: ELECTROLYTE (ICU) PROTOCOL. MC SCH (09:00)
[2018-12-03] MEDS ORDERED: NYSTATIN 100,000 UNITS/ML 5 ML ORAL.SUSP. SWSW SCH (09:00)
[2018-12-03] MEDS: VANCOMYCIN 125 MG/2.5 ML ORAL SOLUTION. PO SCH ×4 (09:00→20:33)
[2018-12-03] MEDS: DAPTOmycin (GENERIC) IVPB 460 MG in IV NORMAL SALINE 50ML 50 ML IV SCH (09:51)
[2018-12-03] MEDS: ASPIRIN CHEWABLE 81 MG TABLET. PO SCH (09:52)
[2018-12-03] MEDS: DULoxetine HCL 30 MG CAPSULE.DR PO SCH (09:52)
[2018-12-03] MEDS: MICAFUNGIN 100 MG in IV DEXTROSE 5% 100ML 100 ML IV SCH (09:52)
[2018-12-03] MEDS ORDERED: MAGNESIUM SULFATE 2GM 50 ML IV ONE (10:00)
[2018-12-03 11:08] LABS: MYCOPLASMA PATIENT NEGATIVE (NEGATIVE)
[2018-12-03] MEDS: SYNTHROID 100 MCG PO SCH (11:09)
[2018-12-03] MEDS: HEPARIN for SUB-Q USE 5,000 UNIT/ML VIAL. SQ SCH ×3 (11:50→22:12)
--- NOTE | 2018-12-03 11:50 | PDOC2 ---
CONSULT Date of Consult Date of Consult DATE: 12/03/18 TIME: 11:47 Reason for consultation: septic shock Consult: Hematology oncology, Dr. Jes Ballesteros History of present illness: She is a 58-year-old female admitted w/ fever acutely yesterday up to 103 at home, worsened w/ immunosuppression from chemo ( ANC ok) assoc w/ diarrhea, fatigue, swelling, and some slight jaundice this morning, improved w/ Abx since here w/ Tm of 100.[address] in the ER showed splenomegaly, possible cystitis and possible colitis, being treated for possible C. difficile, with multiple other antibiotics, ID is involved. Admitted with septic shock and requiring pressors, lactate and procalc were elevated, cultures have been ordered. Past medical history: A. 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, her sister is here w/ her Family history: Obesity Review of systems: Fever, LE swelling, malaise, jaundice, red rash with vanc, dry skin, tender skin, low BP, arthritis, slight anxiety, recent thrush, n/v, otherwise 10 point review of systems negative Physical exam: Vitals reviewed Gen.: Well-nourished and well-developed, malaised, slightly jaundice, in no acute distress HEENT: mucous membranes moist, head normocephalic atraumatic Neck: Supple, no lymphadenopathy Lymph nodes: No palpable lymphadenopathy neck or axilla Lungs: Breathing comfortably, w/o respiratory distress Heart: Regular, tachy, on pressor Abdomen: Soft, sl tender, nondistended, no pinto's sign Extremities: No cyanosis, BLE edema Skin: no obvious skin breakdown, port looks fine, min erythema, slight jaundice Neuro: Alert and oriented 3 Psych: pleasant mood and tired affect Lab reviewed: White count 4.5, hemoglobin 9.6, platelets 170 Influenza negative Creatinine 2.7 Procalc elevated to >125 Lactic acid 3.0 Lipase 96 Mycoplasma negative Troponin 0.358 AST 76 ALT 90 Alkaline phosphatase 178 T bili 4.6 Blood cultures and urine cultures and UA have been ordered Rads reviewed: 12/02 Chest x-ray negative 12/03 CT c/a/p splenomegaly, poss cystitis?, poss colitis? Case discussed with: Patient, her family, records reviewed in [facility] and [facility] , including labs and radiology, please see note for summary details. Assessment and Plan: 58-year-old female with marginal zone lymphoma who has completed bendamustine and rituximab C1, admitted for septic shock, readmit after recent admit for fever Fever: ID is involved, appreciate multidisciplinary assistance, on broad spec antimicrobials, may need to consider port removal? port looks fine today, accessed diarrhea, poss colitis on ct? on po vanc, c diff will be checked Elevated bili: will order RUQ US Elevated trop: consider cardiology eval TSH 4.38: min elev per lab cutoff, can follow w/ PCM prn DVT prophylaxis: heparin w/ elev Cr, plt's are nl Marginal zone lymphoma: Chemotherapy on hold, G-CSF not needed at this time Thank you kindly for this consultation and please don't hesitate to call with any further questions. Past Medical History Cardiovascular: AFIB, HTN Heme/Onc: Cancer, Other Endocrine: Hypothyroidism Past Surgical History Past Surgical History: Cholecystectomy, No pertinent history Family History Family History: Hypertension Social History ALCOHOL: none Drugs: None Current Medications Current Medications Current Medications Sodium Chloride 1,000 ml @ 1,000 mls/hr 1X ONCE IV Last administered on at 23:50; Start 12/02/18 at 23:30; Stop 12/03/18 at 00:29; Status DC Sodium Chloride 1,000 ml @ 1,000 mls/hr 1X ONCE IV Last administered on at 00:08; Start 12/02/18 at 23:30; Stop 12/03/18 at 00:29; Status DC Meropenem 1 gm/ Sodium Chloride 100 ml @ 200 mls/hr Q8HRS IV Last administered on 12/02/18at 23:51; Start 12/03/18 at 00:00; Stop 12/03/18 at 03:21 ; Status DC Vancomycin HCl (Vanco Per Pharmacy) 1 each PRN DAILY PRN MC SEE COMMENTS Last administered on 12/03/18at 03:45; Start 12/02/18 at 23:30; Stop 12/03/18 at 07:49 ; Status DC Vancomycin HCl 2 gm/Sodium Chloride 500 ml @ 250 mls/hr 1X ONCE IV Last administered on 12/03/18at 00:12; Start 12/03/18 at 00:30; Stop 12/03/18 at 02:29 ; Status DC Iohexol (Omnipaque 300 Mg/ml) 75 ml 1X ONCE IV Last administered on 12/03/18at 00:41; Start 12/03/18 at 01:00; Stop 12/03/18 at 01:01; Status DC Info (CONTRAST GIVEN -- Rx MONITORING) 1 each PRN DAILY PRN MC SEE COMMENTS; Start 12/03/18 at 00:30; Stop 12/05/18 at 00:29 Sodium Chloride 1,000 ml @ 1,000 mls/hr 1X ONCE IV Last administered on at 01:08; Start 12/03/18 at 01:00; Stop 12/03/18 at 01:59; Status DC Norepinephrine Bitartrate 250 ml @ 0 mls/hr 1X ONCE IV Last administered on at 01:24; Start 12/03/18 at 01:30; Stop 12/03/18 at 01:31; Status DC Diphenhydramine HCl (Benadryl) 25 mg 1X ONCE IVP Last administered on at 02:01; Start 12/03/18 at 02:00; Stop 12/03/18 at 02:01; Status DC Magnesium Sulfate/ Dextrose 100 ml @ 100 mls/hr 1X ONCE IV Last administered on 12/03/18at 02:08; Start 12/03/18 at 02:00; Stop 12/03/18 at 02:59; Status DC Aspirin (Children'S Aspirin) 324 mg 1X ONCE PO Last administered on 12/03/18at 01:59; Start 12/03/18 at 02:00; Stop 12/03/18 at 02:01; Status DC Sodium Chloride 1,000 ml @ 175 mls/hr Q5H43M IV Last administered on at 03:53; Start 12/03/18 at 03:30; Stop 12/04/18 at 03:29 Meropenem 1 gm/ Sodium Chloride 100 ml @ 200 mls/hr Q12HR IV Last administered on 12/03/18at 08:45; Start 12/03/18 at 09:00 Vancomycin HCl 1.75 gm/Sodium Chloride 500 ml @ 250 mls/hr Q24H IV ; Start at 00:00; Stop 12/04/18 at 00:00; Status DC Vancomycin HCl (Vancomycin Trough Level) 1 each 1X ONCE MC ; Start 12/04/18 at 23:30; Stop 12/04/18 at 23:30; Status DC Diphenhydramine HCl (Benadryl) 25 mg PRN Q6HRS PRN IVP ITCHING; Start 12/03/18 at 04:45 Iohexol (Omnipaque 300 Mg/ml) 100 ml STK-MED ONCE .ROUTE ; Start 12/03/18 at 06: 01; Stop 12/03/18 at 06:02; Status DC Vancomycin HCl (Vancomycin Oral Solution) 125 mg [id number] PO ; Start 12/03/18 at 09:00 Acetaminophen (Tylenol) 650 mg PRN Q6HRS PRN PO Headaches, Temp > 101.5'; Start 12/03/18 at 07:45 Lorazepam (Ativan) 0.5 mg PRN Q6HRS PRN IV ANXIETY / AGITATION; Start 12/03/18 at 07:45 Ondansetron HCl (Zofran) 4 mg PRN Q6HRS PRN IV NAUSEA/VOMITING; Start 12/03/18 at 07:45 Info ([facility]cu Electrolyte Protocol) 1 ea DAILY MC Last administered on 12/03/18at 09 :00; Start 12/03/18 at 09:00 Heparin Sodium (Porcine) (Heparin Sodium) 5,000 unit Q8HRS SQ ; Start 12/03/18 at 08:00 Sodium Chloride (Normal Saline Flush) 3 ml QSHIFT PRN IV AFTER MEDS AND BLOOD DRAWS; Start 12/03/18 at 07:45 Oxycodone/ Acetaminophen (Percocet 5/325) 1 tab PRN Q4HRS PRN PO MILD PAIN, 1ST CHOICE; Start 12/03/18 at 07:45 Morphine Sulfate (Morphine Sulfate) 2 mg PRN Q1HR PRN IV PAIN; Start 12/03/18 at 07:45 Aspirin (Children'S Aspirin) 81 mg DAILY PO Last administered on 12/03/18at 09: 52; Start 12/03/18 at 09:00 Clotrimazole (Mycelex-7) 1 estefany DAILY VG ; Start 12/03/18 at 09:00; Stop at 08:59 Duloxetine HCl (Cymbalta) 30 mg DAILY PO Last administered on 12/03/18at 09:52; Start 12/03/18 at 09:00 Levothyroxine Sodium (Synthroid) 100 mcg DAILY06 PO ; Start 12/03/18 at 08:00; Status Cancel Nystatin (Nystatin Oral Susp) 5 ml TID SWSW ; Start 12/03/18 at 09:00; Stop at 10:21; Status DC Ciprofloxacin/ Dextrose 200 ml @ 200 mls/hr Q12HR IV Last administered on 12/03at 08:50; Start 12/03/18 at 09:00 Daptomycin 460 mg/ Sodium Chloride 50 ml @ 100 mls/hr Q24H IV Last administered on 12/03/18at 09:51; Start 12/03/18 at 09:00 Micafungin Sodium 100 mg/Dextrose 100 ml @ 100 mls/hr Q24H IV Last administered on 12/03/18at 09:52; Start 12/03/18 at 09:00 Non-Formulary Medication 1 ea DAILY06 PO Last administered on 12/03/18at 11:09; Start 12/03/18 at 09:30 Magnesium Sulfate 50 ml @ 25 mls/hr 1X ONCE IV Last administered on 12/03/18at 11:09; Start 12/03/18 at 10:00; Stop 12/03/18 at 11:59 Norepinephrine Bitartrate 250 ml @ 1.875 mls/ hr CONT PRN IV SEE I/O RECORD; Start 12/03/18 at 11:15 Active Scripts Active Nystatin 100,000 Unit/1 Ml Oral.susp 5 Ml SWSW TID 3 Days Clotrimazole 45 Gm Cream.appl 1 Estefany VG DAILY 3 Days Levaquin (Levofloxacin) 500 Mg Tablet 500 Mg PO DAILY06 7 Days Reported Biotin 10,000 Mcg Capsule 10,000 Mcg PO DAILY Multivitamins (Multivitamin) 1 Each Tablet 1 Each PO DAILY Metoprolol Tartrate 25 Mg Tablet 25 Mg PO DAILY Cymbalta (Duloxetine Hcl) 30 Mg Capsule.dr 1 Cap PO DAILY Aspirin 81 Mg Tab.chew 1 Tab PO DAILY Synthroid (Levothyroxine Sodium) 88 Mcg Tablet 100 Mcg PO DAILY Climara (Estradiol) 1 Each Patch.tdwk Latanoprost 2.5 Ml Drops 1 Drop EACHEYE QHS Allergies Allergies: Coded Allergies: Penicillins (Verified Allergy, Severe, DIFFICULTY BREATHING, 05/07/18) Sulfa (Sulfonamide Antibiotics) (Verified Allergy, Intermediate, 05/07/18) oxycodone (Verified Allergy, Intermediate, Itching, 05/07/18) prednisone (Verified Allergy, Intermediate, 05/07/18) HARD TO BREATHE Vitals VITALS Vital Signs Date Time Temp Pulse Resp B/P (MAP) Pulse Ox O2 Delivery O2 Flow Rate FiO2 12/03/18 11:00 115 16 99/36 (57) 97 Room Air 12/03/18 09:00 98.7 98.7 Labs Labs Laboratory Tests Test 12/02/18 23:30 12/03/18 00:45 12/03/18 03:12 12/03/18 08:50 Prothrombin Time 14.9 SEC (11.7-14.0) Prothromb Time International Ratio 1.2 (0.8-1.1) Lactic Acid Level 6.1 mmol/L (0.4-2.0) 3.0 mmol/L (0.4-2.0) Influenza Type A Antigen Negative (NEGATIVE) Influenza Type B Antigen Negative (NEGATIVE) White Blood Count 4.5 x10^3/uL (4.0-11.0) Red Blood Count 3.67 x10^6/uL (3.50-5.40) Hemoglobin 9.6 g/dL (12.0-15.5) Hematocrit 29.8 % (36.0-47.0) Mean Corpuscular Volume 81 fL (79-100) Mean Corpuscular Hemoglobin 26 pg (25-35) Mean Corpuscular Hemoglobin Concent 32 g/dL (31-37) Red Cell Distribution Width 15.0 % (11.5-14.5) Platelet Count 170 x10^3/uL (140-400) Neutrophils (%) (Auto) 96 % (31-73) Lymphocytes (%) (Auto) 0 % (24-48) Monocytes (%) (Auto) 3 % (0-9) Eosinophils (%) (Auto) 1 % (0-3) Basophils (%) (Auto) 0 % (0-3) Neutrophils # (Auto) 4.3 x10^3uL (1.8-7.7) Lymphocytes # (Auto) 0.0 x10^3/uL (1.0-4.8) Monocytes # (Auto) 0.1 x10^3/uL (0.0-1.1) Eosinophils # (Auto) 0.0 x10^3/uL (0.0-0.7) Basophils # (Auto) 0.0 x10^3/uL (0.0-0.2) Segmented Neutrophils % 55 % (35-66) Band Neutrophils % 38 % (0-9) Monocytes % 6 % (0-10) Eosinophils % 1 % (0-5) Toxic Vacuolation Slight Platelet Estimate Adequate (ADEQUATE) Giant Platelets Occ Ovalocytes Occ Sodium Level 137 mmol/L (136-145) Potassium Level 3.8 mmol/L (3.5-5.1) Chloride Level 103 mmol/L (98-107) Carbon Dioxide Level 20 mmol/L (21-32) Anion Gap 14 (6-14) Blood Urea Nitrogen 24 mg/dL (7-20) Creatinine 2.7 mg/dL (0.6-1.0) Estimated GFR (Cockcroft-Gault) 18.1 BUN/Creatinine Ratio 9 (6-20) Glucose Level 233 mg/dL (70-99) Calcium Level 7.1 mg/dL (8.5-10.1) Magnesium Level 1.2 mg/dL (1.8-2.4) 1.7 mg/dL (1.8-2.4) Total Bilirubin 4.6 mg/dL (0.2-1.0) Aspartate Amino Transf (AST/SGOT) 76 U/L (15-37) Alanine Aminotransferase (ALT/SGPT) 90 U/L (14-59) Alkaline Phosphatase 170 U/L (46-116) Creatine Kinase 63 U/L (26-192) Troponin I Quantitative 0.161 ng/mL (0.000-0.055) 0.358 ng/mL (0.000-0.055) Total Protein 3.9 g/dL (6.4-8.2) Albumin 1.7 g/dL (3.4-5.0) Albumin/Globulin Ratio 0.8 (1.0-1.7) Lipase 96 U/L (73-393) Procalcitonin > 125.00 ng/mL (0.00-0.10) Mycoplasma Serology (LAB) Negative (NEGATIVE) Laboratory Tests Test 12/02/18 23:30 12/03/18 00:45 12/03/18 03:12 12/03/18 08:50 Prothrombin Time 14.9 SEC (11.7-14.0) Prothromb Time International Ratio 1.2 (0.8-1.1) Lactic Acid Level 6.1 mmol/L (0.4-2.0) 3.0 mmol/L (0.4-2.0) Influenza Type A Antigen Negative (NEGATIVE) Influenza Type B Antigen Negative (NEGATIVE) White Blood Count 4.5 x10^3/uL (4.0-11.0) Red Blood Count 3.67 x10^6/uL (3.50-5.40) Hemoglobin 9.6 g/dL (12.0-15.5) Hematocrit 29.8 % (36.0-47.0) Mean Corpuscular Volume 81 fL (79-100) Mean Corpuscular Hemoglobin 26 pg (25-35) Mean Corpuscular Hemoglobin Concent 32 g/dL (31-37) Red Cell Distribution Width 15.0 % (11.5-14.5) Platelet Count 170 x10^3/uL (140-400) Neutrophils (%) (Auto) 96 % (31-73) Lymphocytes (%) (Auto) 0 % (24-48) Monocytes (%) (Auto) 3 % (0-9) Eosinophils (%) (Auto) 1 % (0-3) Basophils (%) (Auto) 0 % (0-3) Neutrophils # (Auto) 4.3 x10^3uL (1.8-7.7) Lymphocytes # (Auto) 0.0 x10^3/uL (1.0-4.8) Monocytes # (Auto) 0.1 x10^3/uL (0.0-1.1) Eosinophils # (Auto) 0.0 x10^3/uL (0.0-0.7) Basophils # (Auto) 0.0 x10^3/uL (0.0-0.2) Segmented Neutrophils % 55 % (35-66) Band Neutrophils % 38 % (0-9) Monocytes % 6 % (0-10) Eosinophils % 1 % (0-5) Toxic Vacuolation Slight Platelet Estimate Adequate (ADEQUATE) Giant Platelets Occ Ovalocytes Occ Sodium Level 137 mmol/L (136-145) Potassium Level 3.8 mmol/L (3.5-5.1) Chloride Level 103 mmol/L (98-107) Carbon Dioxide Level 20 mmol/L (21-32) Anion Gap 14 (6-14) Blood Urea Nitrogen 24 mg/dL (7-20) Creatinine 2.7 mg/dL (0.6-1.0) Estimated GFR (Cockcroft-Gault) 18.1 BUN/Creatinine Ratio 9 (6-20) Glucose Level 233 mg/dL (70-99) Calcium Level 7.1 mg/dL (8.5-10.1) Magnesium Level 1.2 mg/dL (1.8-2.4) 1.7 mg/dL (1.8-2.4) Total Bilirubin 4.6 mg/dL (0.2-1.0) Aspartate Amino Transf (AST/SGOT) 76 U/L (15-37) Alanine Aminotransferase (ALT/SGPT) 90 U/L (14-59) Alkaline Phosphatase 170 U/L (46-116) Creatine Kinase 63 U/L (26-192) Troponin I Quantitative 0.161 ng/mL (0.000-0.055) 0.358 ng/mL (0.000-0.055) Total Protein 3.9 g/dL (6.4-8.2) Albumin 1.7 g/dL (3.4-5.0) Albumin/Globulin Ratio 0.8 (1.0-1.7) Lipase 96 U/L (73-393) Procalcitonin > 125.00 ng/mL (0.00-0.10) Mycoplasma Serology (LAB) Negative (NEGATIVE) JES BALLESTEROS MD Dec 03, 2018 11:50
[2018-12-03] MEDS: NOREPINEPHRIN 8MG/250ML PREMIX 250 ML IV PRN ×2 (12:19→19:31)
--- NOTE | 2018-12-03 12:25 | PDOC1 ---
History and Physical Date of Admission Date of Admission 12/03/18 Identification/Chief Complaint Chief Complaint Diarrhea Source Source: Chart review, Patient History of Present Illness History of Present Illness 58-year-old female with history of recently diagnosed marginal zone lymphoma who has had one round of chemotherapy, who presented with 2-day history of fever. on her last admission. she was discharged last week. She comes today with a history of sudden onset diarrhea with multiple bowel movements at home. The patient denied any nausea, vomiting. Denied any chest pain, shortness of breath, abdominal pains, sore throat or headaches. The risk factor of being on anbitiotics recently puts her at increased risk for C difficile infection, patient denied getting GSC F durugs during her last hospital stay, I ahve not seen evidence o nrecords either. Patient has a bandemia on her differential which is quite concerning, despite her MAP being less than 65 the patient is mentating well and seems to be appropriately perfused, we will continue montior her closely Plan of care explained in detail. No headache blurred vision no neurological deficits, no chest pain no palpitations were reported. Reassurance provided. Past Medical History Cardiovascular: AFIB, HTN Heme/Onc: Cancer, Other Endocrine: Hypothyroidism Past Surgical History Past Surgical History: Cholecystectomy, No pertinent history Family History Family History: Hypertension Social History ALCOHOL: none Drugs: None Current Medications Current Medications Current Medications Medications (Trade) Dose Ordered Sig/Angeline Start Time Stop Time Status Last Admin Dose Admin Acetaminophen (Tylenol) 650 mg PRN Q6HRS PRN 12/03/18 07:45 Aspirin (Children'S Aspirin) 81 mg DAILY 12/03/18 09:00 12/03/18 09:52 81 MG Ciprofloxacin/ Dextrose 200 ml @ 200 mls/hr Q12HR 12/03/18 09:00 12/03/18 08:50 200 MLS/HR Clotrimazole (Mycelex-7) 1 ger DAILY 12/03/18 09:00 12/10/18 08:59 Daptomycin 460 mg/ Sodium Chloride 50 ml @ 100 mls/hr Q24H 12/03/18 09:00 12/03/18 09:51 100 MLS/HR Diphenhydramine HCl (Benadryl) 25 mg PRN Q6HRS PRN 12/03/18 04:45 Duloxetine HCl (Cymbalta) 30 mg DAILY 12/03/18 09:00 12/03/18 09:52 30 MG Heparin Sodium (Porcine) (Heparin Sodium) 5,000 unit Q8HRS 12/03/18 08:00 12/03/18 11:50 5,000 UNIT Info (CONTRAST GIVEN -- Rx MONITORING) 1 each PRN DAILY PRN 12/03/18 00:30 12/05/18 00:29 Info ([facility] Electrolyte Protocol) 1 ea DAILY 12/03/18 09:00 12/03/18 09:00 1 EA Iohexol (Omnipaque 300 Mg/ml) 100 ml STK-MED ONCE 12/03/18 06:01 12/03/18 06:02 DC Levothyroxine Sodium (Synthroid) 100 mcg DAILY06 12/03/18 08:00 Cancel Lorazepam (Ativan) 0.5 mg PRN Q6HRS PRN 12/03/18 07:45 Magnesium Sulfate 50 ml @ 25 mls/hr 1X ONCE 12/03/18 10:00 12/03/18 11:59 DC 12/03/18 11:09 25 MLS/HR Magnesium Sulfate/ Dextrose 100 ml @ 100 mls/hr 1X ONCE 12/03/18 02:00 12/03/18 02:59 DC 12/03/18 02:08 100 MLS/HR Meropenem 1 gm/ Sodium Chloride 100 ml @ 200 mls/hr Q12HR 12/03/18 09:00 12/03/18 08:45 200 MLS/HR Micafungin Sodium 100 mg/Dextrose 100 ml @ 100 mls/hr Q24H 12/03/18 09:00 12/03/18 09:52 100 MLS/HR Morphine Sulfate (Morphine Sulfate) 2 mg PRN Q1HR PRN 12/03/18 07:45 Non-Formulary Medication 1 ea DAILY06 12/03/18 09:30 12/03/18 11:09 1 EA Norepinephrine Bitartrate 250 ml @ 1.875 mls/ hr CONT PRN 12/03/18 11:15 Nystatin (Nystatin Oral Susp) 5 ml TID 12/03/18 09:00 12/03/18 10:21 DC Ondansetron HCl (Zofran) 4 mg PRN Q6HRS PRN 12/03/18 07:45 Oxycodone/ Acetaminophen (Percocet 5/325) 1 tab PRN Q4HRS PRN 12/03/18 07:45 Sodium Chloride (Normal Saline Flush) 3 ml QSHIFT PRN 12/03/18 07:45 Vancomycin HCl (Vanco Per Pharmacy) 1 each PRN DAILY PRN 12/02/18 23:30 12/03/18 07:49 DC 12/03/18 03:45 1 EACH Vancomycin HCl (Vancomycin Trough Level) 1 each 1X ONCE 12/04/18 23:30 12/04/18 23:30 DC Vancomycin HCl (Vancomycin Oral Solution) 125 mg [id number] 12/03/18 09:00 Vancomycin HCl 1.75 gm/Sodium Chloride 500 ml @ 250 mls/hr Q24H 12/04/18 00:00 12/04/18 00:00 DC Vancomycin HCl 2 gm/Sodium Chloride 500 ml @ 250 mls/hr 1X ONCE 12/03/18 00:30 12/03/18 02:29 DC 12/03/18 00:12 150 MLS/HR Allergies Allergies Allergies Coded Allergies Type Severity Reaction Last Updated Verified Penicillins Allergy Severe DIFFICULTY BREATHING 05/07/18 Yes Sulfa (Sulfonamide Antibiotics) Allergy Intermediate 05/07/18 Yes oxycodone Allergy Intermediate Itching 05/07/18 Yes prednisone Allergy Intermediate 05/07/18 Yes ROS Review of System CONSTITUTIONAL: No fever or chills EYES: No recent changes SKIN: No rash or itching CARDIOVASCULAR: No chest pain, syncope, palpitations, or edema RESPIRATORY: No SOB or cough GASTROINTESTINAL: No nausea, vomiting or abdominal pain NEUROLOGICAL: No headaches or weakness ENDOCRINE: No cold or heat intolerance GENITOURINARY: No urgency or frequency of urination MUSCULOSKELETAL: No back pain or joint pain LYMPHATICS: No enlarged lymph nodes PSYCHIATRIC: No anxiety or depression Physical Exam Physical Exam GEN.: No apparent distress. Alert and oriented. HEENT: Head is normocephalic, atraumatic NECK: Supple. LUNGS: Clear to auscultation. HEART: RRR, S1, S2 present. Peripheral pulses intact ABDOMEN: Soft, nontender. Positive bowel sounds. EXTREMITIES: Without any cyanosis. NEUROLOGIC: Normal speech, normal tone PSYCHIATRIC: Normal affect, normal mood. SKIN: No ulcerations Vitals Vitals Vital Signs Date Time Temp Pulse Resp B/P (MAP) Pulse Ox O2 Delivery O2 Flow Rate FiO2 12/03/18 11:00 115 16 99/36 (57) 97 Room Air 12/03/18 09:00 98.7 98.7 Labs Labs Laboratory Tests Test 12/02/18 23:30 12/03/18 00:45 12/03/18 03:12 12/03/18 08:50 Prothrombin Time 14.9 SEC (11.7-14.0) Prothromb Time International Ratio 1.2 (0.8-1.1) Lactic Acid Level 6.1 mmol/L (0.4-2.0) 3.0 mmol/L (0.4-2.0) Influenza Type A Antigen Negative (NEGATIVE) Influenza Type B Antigen Negative (NEGATIVE) White Blood Count 4.5 x10^3/uL (4.0-11.0) Red Blood Count 3.67 x10^6/uL (3.50-5.40) Hemoglobin 9.6 g/dL (12.0-15.5) Hematocrit 29.8 % (36.0-47.0) Mean Corpuscular Volume 81 fL (79-100) Mean Corpuscular Hemoglobin 26 pg (25-35) Mean Corpuscular Hemoglobin Concent 32 g/dL (31-37) Red Cell Distribution Width 15.0 % (11.5-14.5) Platelet Count 170 x10^3/uL (140-400) Neutrophils (%) (Auto) 96 % (31-73) Lymphocytes (%) (Auto) 0 % (24-48) Monocytes (%) (Auto) 3 % (0-9) Eosinophils (%) (Auto) 1 % (0-3) Basophils (%) (Auto) 0 % (0-3) Neutrophils # (Auto) 4.3 x10^3uL (1.8-7.7) Lymphocytes # (Auto) 0.0 x10^3/uL (1.0-4.8) Monocytes # (Auto) 0.1 x10^3/uL (0.0-1.1) Eosinophils # (Auto) 0.0 x10^3/uL (0.0-0.7) Basophils # (Auto) 0.0 x10^3/uL (0.0-0.2) Segmented Neutrophils % 55 % (35-66) Band Neutrophils % 38 % (0-9) Monocytes % 6 % (0-10) Eosinophils % 1 % (0-5) Toxic Vacuolation Slight Platelet Estimate Adequate (ADEQUATE) Giant Platelets Occ Ovalocytes Occ Sodium Level 137 mmol/L (136-145) Potassium Level 3.8 mmol/L (3.5-5.1) Chloride Level 103 mmol/L (98-107) Carbon Dioxide Level 20 mmol/L (21-32) Anion Gap 14 (6-14) Blood Urea Nitrogen 24 mg/dL (7-20) Creatinine 2.7 mg/dL (0.6-1.0) Estimated GFR (Cockcroft-Gault) 18.1 BUN/Creatinine Ratio 9 (6-20) Glucose Level 233 mg/dL (70-99) Calcium Level 7.1 mg/dL (8.5-10.1) Magnesium Level 1.2 mg/dL (1.8-2.4) 1.7 mg/dL (1.8-2.4) Total Bilirubin 4.6 mg/dL (0.2-1.0) Aspartate Amino Transf (AST/SGOT) 76 U/L (15-37) Alanine Aminotransferase (ALT/SGPT) 90 U/L (14-59) Alkaline Phosphatase 170 U/L (46-116) Creatine Kinase 63 U/L (26-192) Troponin I Quantitative 0.161 ng/mL (0.000-0.055) 0.358 ng/mL (0.000-0.055) Total Protein 3.9 g/dL (6.4-8.2) Albumin 1.7 g/dL (3.4-5.0) Albumin/Globulin Ratio 0.8 (1.0-1.7) Lipase 96 U/L (73-393) Procalcitonin > 125.00 ng/mL (0.00-0.10) Mycoplasma Serology (LAB) Negative (NEGATIVE) Laboratory Tests Test 12/02/18 23:30 12/03/18 00:45 12/03/18 03:12 12/03/18 08:50 Prothrombin Time 14.9 SEC (11.7-14.0) Prothromb Time International Ratio 1.2 (0.8-1.1) Lactic Acid Level 6.1 mmol/L (0.4-2.0) 3.0 mmol/L (0.4-2.0) Influenza Type A Antigen Negative (NEGATIVE) Influenza Type B Antigen Negative (NEGATIVE) White Blood Count 4.5 x10^3/uL (4.0-11.0) Red Blood Count 3.67 x10^6/uL (3.50-5.40) Hemoglobin 9.6 g/dL (12.0-15.5) Hematocrit 29.8 % (36.0-47.0) Mean Corpuscular Volume 81 fL (79-100) Mean Corpuscular Hemoglobin 26 pg (25-35) Mean Corpuscular Hemoglobin Concent 32 g/dL (31-37) Red Cell Distribution Width 15.0 % (11.5-14.5) Platelet Count 170 x10^3/uL (140-400) Neutrophils (%) (Auto) 96 % (31-73) Lymphocytes (%) (Auto) 0 % (24-48) Monocytes (%) (Auto) 3 % (0-9) Eosinophils (%) (Auto) 1 % (0-3) Basophils (%) (Auto) 0 % (0-3) Neutrophils # (Auto) 4.3 x10^3uL (1.8-7.7) Lymphocytes # (Auto) 0.0 x10^3/uL (1.0-4.8) Monocytes # (Auto) 0.1 x10^3/uL (0.0-1.1) Eosinophils # (Auto) 0.0 x10^3/uL (0.0-0.7) Basophils # (Auto) 0.0 x10^3/uL (0.0-0.2) Segmented Neutrophils % 55 % (35-66) Band Neutrophils % 38 % (0-9) Monocytes % 6 % (0-10) Eosinophils % 1 % (0-5) Toxic Vacuolation Slight Platelet Estimate Adequate (ADEQUATE) Giant Platelets Occ Ovalocytes Occ Sodium Level 137 mmol/L (136-145) Potassium Level 3.8 mmol/L (3.5-5.1) Chloride Level 103 mmol/L (98-107) Carbon Dioxide Level 20 mmol/L (21-32) Anion Gap 14 (6-14) Blood Urea Nitrogen 24 mg/dL (7-20) Creatinine 2.7 mg/dL (0.6-1.0) Estimated GFR (Cockcroft-Gault) 18.1 BUN/Creatinine Ratio 9 (6-20) Glucose Level 233 mg/dL (70-99) Calcium Level 7.1 mg/dL (8.5-10.1) Magnesium Level 1.2 mg/dL (1.8-2.4) 1.7 mg/dL (1.8-2.4) Total Bilirubin 4.6 mg/dL (0.2-1.0) Aspartate Amino Transf (AST/SGOT) 76 U/L (15-37) Alanine Aminotransferase (ALT/SGPT) 90 U/L (14-59) Alkaline Phosphatase 170 U/L (46-116) Creatine Kinase 63 U/L (26-192) Troponin I Quantitative 0.161 ng/mL (0.000-0.055) 0.358 ng/mL (0.000-0.055) Total Protein 3.9 g/dL (6.4-8.2) Albumin 1.7 g/dL (3.4-5.0) Albumin/Globulin Ratio 0.8 (1.0-1.7) Lipase 96 U/L (73-393) Procalcitonin > 125.00 ng/mL (0.00-0.10) Mycoplasma Serology (LAB) Negative (NEGATIVE) VTE Prophylaxis Ordered VTE Prophylaxis Devices: Yes VTE Pharmacological Prophylaxi: Yes Assessment/Plan Assessment/Plan Hypovolemic shock vs septic shock, etiology most likely from GI source Lactic acidosis secondary to septic shock Bandemia of 38 Acute renal failure, vasomotor Severe dehydration Transaminitis secondary to hypoperfusion, shock liver would have higher transaminases but we will continue to monitor. High suspicion for c difficile associated diarrhea marginal zone lymphoma History of atrial fibrillation History of essential hypertension Plan: sepsis protocol fluid and volume resuscitation may need to give albumin continue with levophed may need to add vasopressin DVT prophylaxis: SHANDA Linares MD Dec 03, 2018 12:25
--- NOTE | 2018-12-03 13:21 | PDOC2 ---
ISAEL SHULTZ [employer] 12/03/18 1321: CARDIAC CONSULT DATE OF CONSULT Date of Consult DATE: 12/03/18 TIME: 13:04 REASON FOR CONSULT Reason for Consult: Elevated troponin REFERRING PHYSICIAN Referring Physician: Favian SOURCE Source: Chart review, Patient HISTORY OF PRESENT ILLNESS HISTORY OF PRESENT ILLNESS This is a 58 yo female admitted for complains of fever and chills. She was recently diagnosed with lymphoma and has been treated with chemotherapy. She is immunocompromised with this noted with symptoms of diarrhea, nausea and vomiting,, weakness but no chest pain or SOA. She has been noted with persistent fever and hypotension. No hx of CAD but positive for hx of PAFIB and treated with toprol and ASA. Presently she is on levophed. Feels fatigue with body aches. PAST MEDICAL HISTORY Cardiovascular: AFIB (noted in 01/2017), HTN Pulmonary: Pneumonia GI: GERD, Other (pancreatitis) Heme/Onc: Cancer (lymphoma) Psych: Anxiety, Depression Musculoskeletal: Osteoarthritis ENT: Other (glaucoma) Endocrine: Hypothyroidism, Other (HRT) PAST SURGICAL HISTORY Past Surgical History: Cholecystectomy, Hysterectomy, Other (left wrist surgerysinus surgery; back cyst removal; portacath) SOCIAL HISTORY Smoke: No ALCOHOL: none Drugs: None Lives: with Family CURRENT MEDICATIONS CURRENT MEDICATIONS Current Medications Medications (Trade) Dose Ordered Sig/Angeline Route PRN Reason Start Time Stop Time Status Last Admin Dose Admin Sodium Chloride 1,000 ml @ 1,000 mls/hr 1X ONCE IV 12/02/18 23:30 12/03/18 00:29 DC 12/02/18 23:50 Sodium Chloride 1,000 ml @ 1,000 mls/hr 1X ONCE IV 12/02/18 23:30 12/03/18 00:29 DC 12/03/18 00:08 Meropenem 1 gm/ Sodium Chloride 100 ml @ 200 mls/hr Q8HRS IV 12/03/18 00:00 12/03/18 03:21 DC 12/02/18 23:51 Vancomycin HCl (Vanco Per Pharmacy) 1 each PRN DAILY PRN MC SEE COMMENTS 12/02/18 23:30 12/03/18 07:49 DC 12/03/18 03:45 Vancomycin HCl 2 gm/Sodium Chloride 500 ml @ 250 mls/hr 1X ONCE IV 12/03/18 00:30 12/03/18 02:29 DC 12/03/18 00:12 Iohexol (Omnipaque 300 Mg/ml) 75 ml 1X ONCE IV 12/03/18 01:00 12/03/18 01:01 DC 12/03/18 00:41 Sodium Chloride 1,000 ml @ 1,000 mls/hr 1X ONCE IV 12/03/18 01:00 12/03/18 01:59 DC 12/03/18 01:08 Norepinephrine Bitartrate 250 ml @ 0 mls/hr 1X ONCE IV 12/03/18 01:30 12/03/18 01:31 DC 12/03/18 01:24 Diphenhydramine HCl (Benadryl) 25 mg 1X ONCE IVP 12/03/18 02:00 12/03/18 02:01 DC 12/03/18 02:01 Magnesium Sulfate/ Dextrose 100 ml @ 100 mls/hr 1X ONCE IV 12/03/18 02:00 12/03/18 02:59 DC 12/03/18 02:08 Aspirin (Children'S Aspirin) 324 mg 1X ONCE PO 12/03/18 02:00 12/03/18 02:01 DC 12/03/18 01:59 Sodium Chloride 1,000 ml @ 175 mls/hr Q5H43M IV 12/03/18 03:30 12/04/18 03:29 12/03/18 11:48 Meropenem 1 gm/ Sodium Chloride 100 ml @ 200 mls/hr Q12HR IV 12/03/18 09:00 12/03/18 08:45 Info ([facility] Electrolyte Protocol) 1 ea DAILY MC 12/03/18 09:00 12/03/18 09:00 Heparin Sodium (Porcine) (Heparin Sodium) 5,000 unit Q8HRS SQ 12/03/18 08:00 12/03/18 11:50 Aspirin (Children'S Aspirin) 81 mg DAILY PO 12/03/18 09:00 12/03/18 09:52 Duloxetine HCl (Cymbalta) 30 mg DAILY PO 12/03/18 09:00 12/03/18 09:52 Ciprofloxacin/ Dextrose 200 ml @ 200 mls/hr Q12HR IV 12/03/18 09:00 12/03/18 08:50 Daptomycin 460 mg/ Sodium Chloride 50 ml @ 100 mls/hr Q24H IV 12/03/18 09:00 12/03/18 09:51 Micafungin Sodium 100 mg/Dextrose 100 ml @ 100 mls/hr Q24H IV 12/03/18 09:00 12/03/18 09:52 Non-Formulary Medication 1 ea DAILY06 PO 12/03/18 09:30 12/03/18 11:09 Magnesium Sulfate 50 ml @ 25 mls/hr 1X ONCE IV 12/03/18 10:00 12/03/18 11:59 DC 12/03/18 11:09 Norepinephrine Bitartrate 250 ml @ 1.875 mls/ hr CONT PRN IV SEE I/O RECORD 12/03/18 11:15 12/03/18 12:19 ALLERGIES ALLERGIES: Coded Allergies: Penicillins (Verified Allergy, Severe, DIFFICULTY BREATHING, 05/07/18) Sulfa (Sulfonamide Antibiotics) (Verified Allergy, Intermediate, 05/07/18) oxycodone (Verified Allergy, Intermediate, Itching, 05/07/18) prednisone (Verified Allergy, Intermediate, 05/07/18) HARD TO BREATHE ROS Review of System 14 point ROS evaluated with pertinent positives noted per HPI PHYSICAL EXAM General: Alert, Oriented X3, Cooperative, No acute distress HEENT: Atraumatic, Mucous membr. moist/pink Lungs: Other (diminished bases) Heart: Regular rate (Sinus tach) Abdomen: Soft, No tenderness Extremities: No cyanosis, Other (1+ bilateral LE pitting edema) Skin: No breakdown, No significant lesion Neuro: Normal speech, Sensation intact Psych/Mental Status: Mental status NL, Mood NL MUSCULOSKELETAL: Osteoarthritic changes both hands VITALS VITALS Vital Signs Date Time Temp Pulse Resp B/P (MAP) Pulse Ox O2 Delivery O2 Flow Rate FiO2 12/03/18 12:03 Room Air 12/03/18 11:00 115 16 99/36 (57) 97 12/03/18 09:00 98.7 98.7 LABS Lab: Laboratory Tests Test 12/02/18 23:30 12/03/18 00:45 12/03/18 03:12 12/03/18 08:50 Prothrombin Time 14.9 SEC (11.7-14.0) Prothromb Time International Ratio 1.2 (0.8-1.1) Lactic Acid Level 6.1 mmol/L (0.4-2.0) 3.0 mmol/L (0.4-2.0) Influenza Type A Antigen Negative (NEGATIVE) Influenza Type B Antigen Negative (NEGATIVE) White Blood Count 4.5 x10^3/uL (4.0-11.0) Red Blood Count 3.67 x10^6/uL (3.50-5.40) Hemoglobin 9.6 g/dL (12.0-15.5) Hematocrit 29.8 % (36.0-47.0) Mean Corpuscular Volume 81 fL (79-100) Mean Corpuscular Hemoglobin 26 pg (25-35) Mean Corpuscular Hemoglobin Concent 32 g/dL (31-37) Red Cell Distribution Width 15.0 % (11.5-14.5) Platelet Count 170 x10^3/uL (140-400) Neutrophils (%) (Auto) 96 % (31-73) Lymphocytes (%) (Auto) 0 % (24-48) Monocytes (%) (Auto) 3 % (0-9) Eosinophils (%) (Auto) 1 % (0-3) Basophils (%) (Auto) 0 % (0-3) Neutrophils # (Auto) 4.3 x10^3uL (1.8-7.7) Lymphocytes # (Auto) 0.0 x10^3/uL (1.0-4.8) Monocytes # (Auto) 0.1 x10^3/uL (0.0-1.1) Eosinophils # (Auto) 0.0 x10^3/uL (0.0-0.7) Basophils # (Auto) 0.0 x10^3/uL (0.0-0.2) Segmented Neutrophils % 55 % (35-66) Band Neutrophils % 38 % (0-9) Monocytes % 6 % (0-10) Eosinophils % 1 % (0-5) Toxic Vacuolation Slight Platelet Estimate Adequate (ADEQUATE) Giant Platelets Occ Ovalocytes Occ Sodium Level 137 mmol/L (136-145) Potassium Level 3.8 mmol/L (3.5-5.1) Chloride Level 103 mmol/L (98-107) Carbon Dioxide Level 20 mmol/L (21-32) Anion Gap 14 (6-14) Blood Urea Nitrogen 24 mg/dL (7-20) Creatinine 2.7 mg/dL (0.6-1.0) Estimated GFR (Cockcroft-Gault) 18.1 BUN/Creatinine Ratio 9 (6-20) Glucose Level 233 mg/dL (70-99) Calcium Level 7.1 mg/dL (8.5-10.1) Magnesium Level 1.2 mg/dL (1.8-2.4) 1.7 mg/dL (1.8-2.4) Total Bilirubin 4.6 mg/dL (0.2-1.0) Aspartate Amino Transf (AST/SGOT) 76 U/L (15-37) Alanine Aminotransferase (ALT/SGPT) 90 U/L (14-59) Alkaline Phosphatase 170 U/L (46-116) Creatine Kinase 63 U/L (26-192) Troponin I Quantitative 0.161 ng/mL (0.000-0.055) 0.358 ng/mL (0.000-0.055) Total Protein 3.9 g/dL (6.4-8.2) Albumin 1.7 g/dL (3.4-5.0) Albumin/Globulin Ratio 0.8 (1.0-1.7) Lipase 96 U/L (73-393) Procalcitonin > 125.00 ng/mL (0.00-0.10) Mycoplasma Serology (LAB) Negative (NEGATIVE) ECHOCARDIOGRAM ECHOCARDIOGRAM <Conclusion> The left ventricular systolic function is normal and the ejection fraction is within normal range. The Ejection Fraction is 55-60%. There is normal LV segmental wall motion. DATE: 02/12/17 1055 STRESS TEST STRESS TEST Conclusion 1. No evidence of stress induced EKG changes. 2. Normal perfusion at stress/rest. 3. Low risk study 4. EF > 70% DATE: 02/12/17 1350 ASSESSMENT/PLAN ASSESSMENT/PLAN 1. Septic shock 2. Diarrhea/fever 3. NSTEMI: suspect type 2 related to above, no cardiac symptoms. EKG sinus tach otherwise no significant ST-T wave changes 4. Reactive sinus tach 5. Lymphoma with Immunosuppression: recent chemo treatment 6. Hx of past PAFIB 7. Hx of hypothyroidism Recommendations 1. On ASA and Toprol at home hold BB for now. 2. Antibiotic therapy. BP better with levophed. 3. TTE. supportive care 4. Pt is on estradiol, consider DCing for increased risk of VTE. Pt is on cymbalta at home. BRISEIDA LEROY MD 12/03/18 1837: CARDIAC CONSULT ASSESSMENT/PLAN ASSESSMENT/PLAN Pt. seen and examined. Agree with above DELIVERY REPRESENTATIVE note. Supportive care from CV standpoint. Echo wnl. Continue aggressive fluids/pressors. Elevated troponin due to septic shock. ISAEL SHULTZ APRN Dec 03, 2018 13:21 BRISEIDA LEROY MD Dec 03, 2018 18:37
[2018-12-03] MEDS: ACETAMINOPHEN 325 MG TABLET. PO PRN ×2 (14:22→20:25)
--- NOTE | 2018-12-03 14:23 | CONS ---
DATE OF CONSULTATION: ATTENDING PHYSICIAN: Dr. Callejas. REASON FOR CONSULTATION: Septic shock. HISTORY OF PRESENT ILLNESS: The patient is a 58-year-old female who has a history of marginal zone lymphoma. She has received her chemo with Rituxan and another agent on the first week of November. The patient came to the hospital with complaint of fatigue and weakness. Also, she was noted to have been nauseous and had emesis today and some loose stool x 1 today. She had a fever of 100.2. The patient had low blood pressure on arrival. Her systolic blood pressure was in the 80s. As a result, she was placed on Levophed currently and the systolic blood pressure in the low 100s to high 90s and currently she is on 20 mcg of Levophed. She is also getting IV fluids. The patient underwent imaging study including CT chest, abdomen and pelvis without contrast. There is no definite consolidation seen in the lungs. There was a mildly prominent lymph node in the precarinal area, which is not pathologically enlarged. There were post-cholecystectomy changes in the abdomen. No hydronephrosis. Splenomegaly was noticed. There may be mild cystitis and could be mild colitis. I have been asked to see her for further evaluation. She does not have any cough, no chest pains. No shortness of breath. PAST MEDICAL HISTORY: History of AFib, history of glaucoma, history of marginal zone lymphoma, history of hypothyroidism, osteoarthritis, heart disease and hypertension. PAST SURGICAL HISTORY: Port placement, bone marrow biopsy, cholecystectomy, right foot surgery, left wrist surgery, sinus surgery and hysterectomy. ALLERGIES: PENICILLIN AND PREDNISONE. PERCOCET, SULFA AND RED RASH WITH IV VANCOMYCIN. MEDICATIONS: All reviewed as listed in the MRAD including antibiotics, daptomycin, micafungin, Cipro and meropenem. REVIEW OF SYSTEMS: Twelve-point systems obtained. Pertinent positives discussed in my history of present illness, otherwise noncontributory. All systems that were negative were reviewed as well. SOCIAL HISTORY: Nonsmoker, nonalcoholic. PHYSICAL EXAMINATION: VITAL SIGNS: Reviewed. Her T-max is 100.1. HEENT: Sclerae are nonicteric. NECK: Supple. LUNGS: Clear. CARDIOVASCULAR: Regular rate and rhythm. ABDOMEN: Soft. EXTREMITIES: With trace pitting edema. She also has some mild edema in the left upper arm. LABORATORY DATA: Reviewed. Sodium 137, potassium 3.8, chloride 103, BUN 24, creatinine 2.7. Lactic acid was 6.1, now down to 3.0. Troponin 0.358. Procalcitonin more than 125. White blood cell count 4.5, hemoglobin 9.6 and platelets are 170. Influenza screen is negative. IMPRESSION: 1. Septic shock. Etiology could be colitis. She also has a component of hypovolemic shock as well. 2. Marginal zone lymphoma, status post chemo in the first week of November and has immunosuppression. 3. No significant history of tobacco use. 4. Acute kidney injury related to shock. 5. Lactic acidosis secondary to septic shock, the levels are improving. 6. Severe protein-calorie malnutrition. Albumin level is 1.7. 7. Elevated liver function test, needs to be closely monitored. She also has bilirubin of 4.6. Recommend GI consult. 8. Increased troponin level. Follow Cardiology's recommendations. RECOMMENDATIONS: 1. Continue with present Levophed. 2. Aggressive volume resuscitation and gradually wean Levophed dose. 3. Monitor renal function. May need HD 4. Monitor liver function tests./ Consult GI 5. Follow ID recommendation. 6. Broad spectrum antibiotics per ID. 7. Renal consult and recommendation. 8. Cardiology consult and recommendation. 9. Improved nutritional status. 10. Discussed with RN and the entire family. Critical care time 35 minutes. JENIFER HAMLIN MD DR: CLAUDIA/esme JOB#: [id number] / [id number] FREIDA
[2018-12-03 14:34] LABS: BILIRUBIN,URINE LARGE (NEG); CLARITY,URINE TURBID; COLOR,URINE ORANGE; PROTEIN,URINE 30 mg/dL (NEG-TRACE)
[2018-12-03 14:48] LABS: NITRITE,URINE NEGATIVE (NEG)
[2018-12-03 14:49] LABS: BACTERIA,URINE 0 /HPF (0-FEW); RBC,URINE 0 /HPF (0-2); SQUAMOUS EPITHELIAL CELL,UR MOD /LPF
[2018-12-03 14:51] LABS: AMORPHOUS SEDIMENT,UR PRESENT /HPF; GRANULAR CASTS,URINE FEW /HPF
[2018-12-03 14:52] LABS: WAXY CASTS,URINE OCCASIONAL /HPF
--- NOTE | 2018-12-03 15:08 | RAD ---
Indication:ELEVATED BILI/LFT'S TECHNIQUE: Grayscale, color Doppler and spectral waveform is of the abdomen obtained. COMPARISON:CT abdomen pelvis from the same day FINDINGS: Visualized pancreas within normal limits. IVC is patent. No aortic aneurysm. Liver measures 17 cm in AP dimension with diffuse increased echogenicity and is normal in size. Main portal vein is patent. Status post cholecystectomy. CBD measures 5 mm in diameter and is within normal limits. Right kidney measures 13.3 cm in length without hydronephrosis. Spleen measures 16 cm in longest dimension and is mildly enlarged in size. Left kidney measures 11.7 cm in length without hydronephrosis. IMPRESSION: 1. Hepatic steatosis. 2. Interval improvement in previously seen splenomegaly. Electronically signed by: Jh Bonilla DO (12/03/2018 3:05 PM) [facility]
--- NOTE | 2018-12-03 16:17 | PDOC2 ---
GI CONSULT Reason For Consult: Elevated bili, AST, ALT HPI: HPI: 58 y/o female w/ lymphoma on chemo, discharged earlier this week, back to ER w/ n/v and fever last night. Now w/ multiple lab abnormalities including bili 4.6 , AST 76, ALT 90, AP 170 which is why GI was asked to see. Imaging noted hepatic steatosis and splenomegaly. No GERD or dysphagia. No hematemesis. Issues w/ n/v after first round of chemo earlier this month. Some vague right-sided abd discomfort. Might have had diarrhea once yesterday and once today - she didn't look. No hematochezia or melena she's aware of. No weight loss. No previous EGD. Reportedly normal colonoscopy ~3 years at at [facility]. S/p cholecystectomy (stones). Pancreatitis prior to cholecystectomy. Denies liver history. No h/o hepatitis or blood transfusions. No NSAIDs, does take ASA. PMH: PMH: A Fib, HTN, pneumonia, lymphoma, anxiety/depression, OA, glaucoma, hypothyroidism, pancreatitis (gallstone) cholecystectomy, hysterectomy, left wrist surgery, sinus surgery, back cyst removal, port placement, bone marrow biopsy x 2 FH: Family History: Cancer Social History: Smoke: No ALCOHOL: none Drugs: None ROS: GEN: +fever HEENT: Denies blurred vision, sore throat CV: Denies chest pain RESP: Denies shortness of air, cough GI: Per HPI : Denies hematuria, dysuria ENDO: Denies weight changes NEURO: Denies confusion, dizziness MSK: Denies weakness, joint pain/swelling SKIN: +rash Vitals: Vitals: Vital Signs Date Time Temp Pulse Resp B/P (MAP) Pulse Ox O2 Delivery O2 Flow Rate FiO2 12/03/18 14:00 118 16 95/47 (63) Room Air 12/03/18 13:00 100.6 100.6 12/03/18 12:00 95 Labs: Labs: Laboratory Tests Test 12/02/18 23:30 12/03/18 00:45 12/03/18 03:12 12/03/18 08:50 Prothrombin Time 14.9 SEC (11.7-14.0) Prothromb Time International Ratio 1.2 (0.8-1.1) Lactic Acid Level 6.1 mmol/L (0.4-2.0) 3.0 mmol/L (0.4-2.0) Influenza Type A Antigen Negative (NEGATIVE) Influenza Type B Antigen Negative (NEGATIVE) White Blood Count 4.5 x10^3/uL (4.0-11.0) Red Blood Count 3.67 x10^6/uL (3.50-5.40) Hemoglobin 9.6 g/dL (12.0-15.5) Hematocrit 29.8 % (36.0-47.0) Mean Corpuscular Volume 81 fL (79-100) Mean Corpuscular Hemoglobin 26 pg (25-35) Mean Corpuscular Hemoglobin Concent 32 g/dL (31-37) Red Cell Distribution Width 15.0 % (11.5-14.5) Platelet Count 170 x10^3/uL (140-400) Neutrophils (%) (Auto) 96 % (31-73) Lymphocytes (%) (Auto) 0 % (24-48) Monocytes (%) (Auto) 3 % (0-9) Eosinophils (%) (Auto) 1 % (0-3) Basophils (%) (Auto) 0 % (0-3) Neutrophils # (Auto) 4.3 x10^3uL (1.8-7.7) Lymphocytes # (Auto) 0.0 x10^3/uL (1.0-4.8) Monocytes # (Auto) 0.1 x10^3/uL (0.0-1.1) Eosinophils # (Auto) 0.0 x10^3/uL (0.0-0.7) Basophils # (Auto) 0.0 x10^3/uL (0.0-0.2) Segmented Neutrophils % 55 % (35-66) Band Neutrophils % 38 % (0-9) Monocytes % 6 % (0-10) Eosinophils % 1 % (0-5) Toxic Vacuolation Slight Platelet Estimate Adequate (ADEQUATE) Giant Platelets Occ Ovalocytes Occ Sodium Level 137 mmol/L (136-145) Potassium Level 3.8 mmol/L (3.5-5.1) Chloride Level 103 mmol/L (98-107) Carbon Dioxide Level 20 mmol/L (21-32) Anion Gap 14 (6-14) Blood Urea Nitrogen 24 mg/dL (7-20) Creatinine 2.7 mg/dL (0.6-1.0) Estimated GFR (Cockcroft-Gault) 18.1 BUN/Creatinine Ratio 9 (6-20) Glucose Level 233 mg/dL (70-99) Calcium Level 7.1 mg/dL (8.5-10.1) Magnesium Level 1.2 mg/dL (1.8-2.4) 1.7 mg/dL (1.8-2.4) Total Bilirubin 4.6 mg/dL (0.2-1.0) Aspartate Amino Transf (AST/SGOT) 76 U/L (15-37) Alanine Aminotransferase (ALT/SGPT) 90 U/L (14-59) Alkaline Phosphatase 170 U/L (46-116) Creatine Kinase 63 U/L (26-192) Troponin I Quantitative 0.161 ng/mL (0.000-0.055) 0.358 ng/mL (0.000-0.055) Total Protein 3.9 g/dL (6.4-8.2) Albumin 1.7 g/dL (3.4-5.0) Albumin/Globulin Ratio 0.8 (1.0-1.7) Lipase 96 U/L (73-393) Procalcitonin > 125.00 ng/mL (0.00-0.10) Nasal Screen MRSA (PCR) Negative (Negative) Mycoplasma Serology (LAB) Negative (NEGATIVE) Test 12/03/18 14:00 Urine Collection Type Unknown Urine Color [place] Urine Clarity Turbid Urine pH 5.0 Urine Specific [place] >=1.030 Urine Protein 30 mg/dL (NEG-TRACE) Urine Glucose (UA) Negative mg/dL (NEG) Urine Ketones (Stick) 15 mg/dL (NEG) Urine Blood Negative (NEG) Urine Nitrite Negative (NEG) Urine Bilirubin Large (NEG) Urine Urobilinogen Dipstick 1.0 mg/dL (0.2 mg/dL) Urine Leukocyte Esterase Negative (NEG) Urine RBC 0 /HPF (0-2) Urine WBC 5-10 /HPF (0-4) Urine Squamous Epithelial Cells Mod /LPF Urine Transitional Epithelial Cells Mod /LPF Urine Amorphous Sediment Present /HPF Urine Bacteria 0 /HPF (0-FEW) Urine Granular Casts Few /HPF Urine Waxy Casts Occasional /HPF Allergies: Coded Allergies: Penicillins (Verified Allergy, Severe, DIFFICULTY BREATHING, 05/07/18) Sulfa (Sulfonamide Antibiotics) (Verified Allergy, Intermediate, 05/07/18) oxycodone (Verified Allergy, Intermediate, Itching, 05/07/18) prednisone (Verified Allergy, Intermediate, 05/07/18) HARD TO BREATHE Medications: Current Medications Medications (Trade) Dose Ordered Sig/Angeline Route PRN Reason Start Time Stop Time Status Last Admin Dose Admin Sodium Chloride 1,000 ml @ 1,000 mls/hr 1X ONCE IV 12/02/18 23:30 12/03/18 00:29 DC 12/02/18 23:50 Sodium Chloride 1,000 ml @ 1,000 mls/hr 1X ONCE IV 12/02/18 23:30 12/03/18 00:29 DC 12/03/18 00:08 Meropenem 1 gm/ Sodium Chloride 100 ml @ 200 mls/hr Q8HRS IV 12/03/18 00:00 12/03/18 03:21 DC 12/02/18 23:51 Vancomycin HCl (Vanco Per Pharmacy) 1 each PRN DAILY PRN MC SEE COMMENTS 12/02/18 23:30 12/03/18 07:49 DC 12/03/18 03:45 Vancomycin HCl 2 gm/Sodium Chloride 500 ml @ 250 mls/hr 1X ONCE IV 12/03/18 00:30 12/03/18 02:29 DC 12/03/18 00:12 Iohexol (Omnipaque 300 Mg/ml) 75 ml 1X ONCE IV 12/03/18 01:00 12/03/18 01:01 DC 12/03/18 00:41 Sodium Chloride 1,000 ml @ 1,000 mls/hr 1X ONCE IV 12/03/18 01:00 12/03/18 01:59 DC 12/03/18 01:08 Norepinephrine Bitartrate 250 ml @ 0 mls/hr 1X ONCE IV 12/03/18 01:30 12/03/18 01:31 DC 12/03/18 01:24 Diphenhydramine HCl (Benadryl) 25 mg 1X ONCE IVP 12/03/18 02:00 12/03/18 02:01 DC 12/03/18 02:01 Magnesium Sulfate/ Dextrose 100 ml @ 100 mls/hr 1X ONCE IV 12/03/18 02:00 12/03/18 02:59 DC 12/03/18 02:08 Aspirin (Children'S Aspirin) 324 mg 1X ONCE PO 12/03/18 02:00 12/03/18 02:01 DC 12/03/18 01:59 Sodium Chloride 1,000 ml @ 175 mls/hr Q5H43M IV 12/03/18 03:30 12/04/18 03:29 12/03/18 11:48 Meropenem 1 gm/ Sodium Chloride 100 ml @ 200 mls/hr Q12HR IV 12/03/18 09:00 12/03/18 08:45 Vancomycin HCl (Vancomycin Oral Solution) 125 mg [id number] PO 12/03/18 09:00 12/03/18 14:22 Acetaminophen (Tylenol) 650 mg PRN Q6HRS PRN PO Headaches, Temp > 101.5' 12/03/18 07:45 12/03/18 14:22 Info (Icu Electrolyte Protocol) 1 ea DAILY MC 12/03/18 09:00 12/03/18 09:00 Heparin Sodium (Porcine) (Heparin Sodium) 5,000 unit Q8HRS SQ 12/03/18 08:00 12/03/18 11:50 Aspirin (Children'S Aspirin) 81 mg DAILY PO 12/03/18 09:00 12/03/18 09:52 Duloxetine HCl (Cymbalta) 30 mg DAILY PO 12/03/18 09:00 12/03/18 09:52 Ciprofloxacin/ Dextrose 200 ml @ 200 mls/hr Q12HR IV 12/03/18 09:00 12/03/18 08:50 Daptomycin 460 mg/ Sodium Chloride 50 ml @ 100 mls/hr Q24H IV 12/03/18 09:00 12/03/18 09:51 Micafungin Sodium 100 mg/Dextrose 100 ml @ 100 mls/hr Q24H IV 12/03/18 09:00 12/03/18 09:52 Non-Formulary Medication 1 ea DAILY06 PO 12/03/18 09:30 12/03/18 11:09 Magnesium Sulfate 50 ml @ 25 mls/hr 1X ONCE IV 12/03/18 10:00 12/03/18 11:59 DC 12/03/18 11:09 Norepinephrine Bitartrate 250 ml @ 1.875 mls/ hr CONT PRN IV SEE I/O RECORD 12/03/18 11:15 12/03/18 12:19 Sodium Chloride 1,000 ml @ 999 mls/hr Q1H1M IV 12/03/18 13:45 12/03/18 14:32 DC 12/03/18 14:24 Imaging: Imaging: CXR IMPRESSION: No acute pulmonary process. C/A/P CT IMPRESSION: 1. Splenomegaly is identified. 2. Urinary bladder is not very distended but there is some mild indistinctness of fat adjacent to it. Nonspecific in nature but would correlate with symptoms to ensure there is not a pathologic cause such as mild cystitis. 3. There is some apparent wall thickening of the colon. The colon is not very distended therefore it is possible that this is secondary to lack of distention but if the patient has appropriate symptoms colitis is possible. Abd US IMPRESSION: 1. Hepatic steatosis. 2. Interval improvement in previously seen splenomegaly. PE: GEN: NAD HEENT: Atraumatic, PERRL LUNGS: CTAB anteriorly HEART: tachycardic ABD: NABS, S/ND, mild right-sided discomfort toward RLQ EXTREMITY: No edema SKIN: +rash NEURO/PSYCH: A & O 3 A/P: A/P: Sepsis/shock - atbx per ID Abnormal LFTs, hepatic steatosis, splenomegaly N/v, ?diarrhea - now tolerating liquids, one stool yesterday and one today NSTEMI, ELISE, anemia Marginal zone lymphoma, recent chemo Abnormal CT - apparent wall thickening of the colon possibly due to lack of distention CRC screen, FH CRC - UTD S/p cholecystectomy (and gallstone pancreatitis) -- Reviewed w/ Propeck - follow LFTs. Await pending labs/cultures. ALEXANDER ROSS Dec 03, 2018 16:17
--- NOTE | 2018-12-03 16:35 | CARD ---
MR#: [id number] Date of Study: 12/03/2018 Ordering Physician: ISAEL SHULTZ, Referring Physician: HAO DIGGS Tech: Ale Layne [facility] APPROVED REPORT EXAM: Two-dimensional and M-mode echocardiogram with Doppler and color Doppler. Other Information Quality : Good Rhythm : Tachycardia INDICATION Elevated Troponin 2D DIMENSIONS RVDd2.1 (2.9-3.5cm)Left Atrium(2D)3.0 (1.6-4.0cm) IVSd1.1 (0.7-1.1cm)Aortic Root(2D)2.6 (2.0-3.7cm) LVDd4.5 (3.9-5.9cm)LVOT Diameter2.0 (1.8-2.4cm) PWd1.3 (0.7-1.1cm)LVDs2.0 (2.5-4.0cm) FS (%) 30.0 %SV78.3 ml Aortic Valve AoV Peak Ari.238.6cm/sAoV VTI24.5cm AO Peak GR.22.8mmHgLVOT VTI 26.71cm AO Mean GR.15mmHgAVA (VTI)3.30cm2 Mitral Valve MV E Coxyjonk78.0cm/sMV DECEL [id number] MV A Ysngibvw55.7cm/sE/A Ratio0.9 TDI Lateral E' P. V6.24cm/sMedial E' P. V6.82cm/s E/Lateral E'12.8E/Medial E'11.7 Pulmonary Vein S1 Pcluteow23.8cm/sS2 Ecjuscus54.76cm/s D2 Ltagusxs41.8cm/s LEFT VENTRICLE The left ventricle is normal size. There is mild concentric left ventricular hypertrophy. The left ve ntricular systolic function is normal and the ejection fraction is within normal range. The Ejection Fraction is 60-65%. There is normal LV segmental wall motion. Transmitral Doppler flow pattern is Gra [place] I-abnormal relaxation pattern. RIGHT VENTRICLE The right ventricle is normal size. The right ventricular systolic function is normal. ATRIA The left atrium size is normal. The right atrium size is normal. AORTIC VALVE The aortic valve is normal in structure and function. Doppler and Color Flow revealed no significant aortic regurgitation. There is no significant aortic valvular stenosis. MITRAL VALVE The mitral valve is calcified but opens well. Mitral annular calcification is mild. There is no evide nce of mitral valve prolapse. There is no mitral valve stenosis. Doppler and Color-flow revealed mild mitral regurgitation. TRICUSPID VALVE The tricuspid valve is normal in structure and function. Doppler and Color Flow revealed trace tricus pid valve regurgitation noted. There is no tricuspid valve stenosis. PULMONIC VALVE The pulmonic valve is not well visualized. Doppler and Color Flow revealed no pulmonic valvular regur gitation. There is no pulmonic valvular stenosis. GREAT VESSELS The aortic root is normal in size. The ascending aorta is normal in size. The IVC is normal in size a nd collapses >50% with inspiration. PERICARDIAL EFFUSION There is no evidence of significant pericardial effusion. Critical Notification Critical Value: No <Conclusion> The left ventricle is normal size. The left ventricular systolic function is normal and the ejection fraction is within normal range. The Ejection Fraction is 60-65%. There is mild concentric left ventricular hypertrophy. Doppler and Color Flow revealed no significant aortic regurgitation. There is no significant aortic valvular stenosis. Doppler and Color-flow revealed mild mitral regurgitation. Doppler and Color Flow revealed trace tricuspid valve regurgitation noted. Signed by : Levi Lara MD Electronically Approved : 12/03/2018 16:35:40
[2018-12-03] MEDS: VASOPRESSIN 40 UNIT in IV DEXTROSE 5% 100ML 100 ML IV PRN (17:41)
[2018-12-04] VITALS (27 sets, daily range): BP systolic 84–140; BP diastolic 40–61
[2018-12-04] MEDS ORDERED: VANCOMYCIN 1.75 GM in IV NORMAL SALINE 500ML BAG 500 ML IV SCH ×2
[2018-12-04] MEDS: IV NORMAL SALINE 1000ML BAG 1,000 ML IV SCH ×2 (04:23→23:25)
[2018-12-04 05:13] LABS: BASO % 0 % (0-3); EOS # 0.1 x10^3/uL (0.0-0.7); EOS % 4 % (0-3); HEMOGLOBIN 8.7 g/dL (12.0-15.5); LYMPH # 0.1 x10^3/uL (1.0-4.8); LYMPH % 4 % (24-48); MEAN CORPUSCULAR HEMOGLOBIN 27 pg (25-35); MEAN CORPUSCULAR HGB CONC 33 g/dL (31-37); MEAN CORPUSCULAR VOLUME 81 fL (79-100); MONO # 0.1 x10^3/uL (0.0-1.1); MONO % 5 % (0-9); NEUT # 1.8 x10^3uL (1.8-7.7); NEUT % 86 % (31-73); PLATELET COUNT 100 x10^3/uL (140-400); RED BLOOD COUNT 3.22 x10^6/uL (3.50-5.40); RED CELL DISTRIBUTION WIDTH 15.9 % (11.5-14.5); WHITE BLOOD COUNT 2.1 x10^3/uL (4.0-11.0)
[2018-12-04 05:40] LABS: ALBUMIN 1.6 g/dL (3.4-5.0); CALCIUM 6.5 mg/dL (8.5-10.1); DIRECT BILIRUBIN 10.8 mg/dL (0.0-0.2); POTASSIUM 4.4 mmol/L (3.5-5.1); TOTAL BILIRUBIN 12.1 mg/dL (0.2-1.0); TOTAL PROTEIN 3.6 g/dL (6.4-8.2)
[2018-12-04] MEDS: SYNTHROID 100 MCG PO SCH (06:18)
[2018-12-04] MEDS: HEPARIN for SUB-Q USE 5,000 UNIT/ML VIAL. SQ SCH ×3 (06:19→22:24)
--- NOTE | 2018-12-04 07:44 | PDOC ---
Infectious Disease Note Subjective Subjective pt is awake, says ok, some abd cramping, diarrhea + ROS ROS no n/v/ cont fever Vital Sign Vital Signs Vital Signs Date Time Temp Pulse Resp B/P (MAP) Pulse Ox O2 Delivery O2 Flow Rate FiO2 12/04/18 06:00 114 16 105/47 (66) 93 Room Air 12/04/18 04:00 99.3 99.3 Physical Exam PHYSICAL EXAM GENERAL: Propped up in bed, awake, NAD HEENT: Oral cavity clear, no thrush or lesions NECK: Supple, no JVP, no lymphadenopathy. LUNGS: Clear. HEART: S1, S2 regular. ABDOMEN: Obese, soft and nontender EXTREMITIES: No edema or cyanosis. SKIN: Maculopapular rash all over the body CARTRIDGE GAUGER: Alert, responds appropriately Port-A-Cath without signs of any complications . Labs Lab Laboratory Tests Test 12/03/18 08:50 12/03/18 14:00 12/03/18 19:20 12/04/18 05:00 Magnesium Level 1.7 mg/dL (1.8-2.4) Troponin I Quantitative 0.358 ng/mL (0.000-0.055) Mycoplasma Serology (LAB) Negative (NEGATIVE) Urine Collection Type Unknown Urine Color [place] Urine Clarity Turbid Urine pH 5.0 Urine Specific [place] >=1.030 Urine Protein 30 mg/dL (NEG-TRACE) Urine Glucose (UA) Negative mg/dL (NEG) Urine Ketones (Stick) 15 mg/dL (NEG) Urine Blood Negative (NEG) Urine Nitrite Negative (NEG) Urine Bilirubin Large (NEG) Urine Urobilinogen Dipstick 1.0 mg/dL (0.2 mg/dL) Urine Leukocyte Esterase Negative (NEG) Urine RBC 0 /HPF (0-2) Urine WBC 5-10 /HPF (0-4) Urine Squamous Epithelial Cells Mod /LPF Urine Transitional Epithelial Cells Mod /LPF Urine Amorphous Sediment Present /HPF Urine Bacteria 0 /HPF (0-FEW) Urine Granular Casts Few /HPF Urine Waxy Casts Occasional /HPF Hepatitis A IgM Antibody Nonreactive (Nonreactive) Hepatitis B Surface Antigen Nonreactive (Nonreactive) Hepatitis B Core IgM Antibody Nonreactive (Nonreactive) Hepatitis C IgG Antibody Nonreactive (Nonreactive) White Blood Count 2.1 x10^3/uL (4.0-11.0) Red Blood Count 3.22 x10^6/uL (3.50-5.40) Hemoglobin 8.7 g/dL (12.0-15.5) Hematocrit 26.0 % (36.0-47.0) Mean Corpuscular Volume 81 fL (79-100) Mean Corpuscular Hemoglobin 27 pg (25-35) Mean Corpuscular Hemoglobin Concent 33 g/dL (31-37) Red Cell Distribution Width 15.9 % (11.5-14.5) Platelet Count 100 x10^3/uL (140-400) Neutrophils (%) (Auto) 86 % (31-73) Lymphocytes (%) (Auto) 4 % (24-48) Monocytes (%) (Auto) 5 % (0-9) Eosinophils (%) (Auto) 4 % (0-3) Basophils (%) (Auto) 0 % (0-3) Neutrophils # (Auto) 1.8 x10^3uL (1.8-7.7) Lymphocytes # (Auto) 0.1 x10^3/uL (1.0-4.8) Monocytes # (Auto) 0.1 x10^3/uL (0.0-1.1) Eosinophils # (Auto) 0.1 x10^3/uL (0.0-0.7) Basophils # (Auto) 0.0 x10^3/uL (0.0-0.2) Sodium Level 136 mmol/L (136-145) Potassium Level 4.4 mmol/L (3.5-5.1) Chloride Level 106 mmol/L (98-107) Carbon Dioxide Level 19 mmol/L (21-32) Anion Gap 11 (6-14) Blood Urea Nitrogen 45 mg/dL (7-20) Creatinine 3.0 mg/dL (0.6-1.0) Estimated GFR (Cockcroft-Gault) 16.0 Glucose Level 124 mg/dL (70-99) Calcium Level 6.5 mg/dL (8.5-10.1) Total Bilirubin 12.1 mg/dL (0.2-1.0) Direct Bilirubin 10.8 mg/dL (0.0-0.2) Aspartate Amino Transf (AST/SGOT) 30 U/L (15-37) Alanine Aminotransferase (ALT/SGPT) 54 U/L (14-59) Alkaline Phosphatase 166 U/L (46-116) Total Protein 3.6 g/dL (6.4-8.2) Albumin 1.6 g/dL (3.4-5.0) Micro last adm culture neg Objective Assessment Fever Lactic acidosis Rash ? from [place] Dehydration ELISE Hypotension on vasopressors Marginal zone lymphoma Hypotension ? Hepato renal sy Plan Plan of Care dapto, meropenem and cipro and micafungin workup d/w pt and in detail fluids supportive care check stool culture /PCR for shiga toxin producing e coli will d/w onc, GI and Nepho ELVIS CARMONA MD Dec 04, 2018 07:43
[2018-12-04] MEDS: ELECTROLYTE (ICU) PROTOCOL. MC SCH (09:00)
[2018-12-04] MEDS: VASOPRESSIN 40 UNIT in IV DEXTROSE 5% 100ML 100 ML IV PRN (09:01)
[2018-12-04] MEDS: MEROPENEM 1 GM in IV NORMAL SALINE 100ML 100 ML IV SCH ×2 (09:05→20:34)
[2018-12-04] MEDS: CIPROFLOXACIN 400MG PREMIX 200 ML IV SCH ×2 (09:06→20:34)
[2018-12-04] MEDS: MICAFUNGIN 100 MG in IV DEXTROSE 5% 100ML 100 ML IV SCH (09:06)
--- NOTE | 2018-12-04 09:16 | PDOC ---
PROGRESS NOTES Subjective Subjective HPI - f/u of Marginal zone lymphoma ROS - fever is better, has jaundice Objective Objective Vital Signs Date Time Temp Pulse Resp B/P (MAP) Pulse Ox O2 Delivery O2 Flow Rate FiO2 12/04/18 08:00 Room Air 12/04/18 06:00 114 16 105/47 (66) 93 12/04/18 04:00 99.3 99.3 Intake and Output 12/04/18 07:00 Intake Total 7138 ml Output Total 1375 ml Balance 5763 ml Intake Oral 1870 ml IV Total 5268 ml Output Urine Total 1375 ml # Bowel Movements 3 Physical Exam Heart: Normal S1, Normal S2 General: Alert, Oriented X3 Lungs: Clear to auscultation Neuro: Normal speech Psych/Mental Status: Mental status NL Assessment Assessment Assessment and Plan: 58-year-old female with marginal zone lymphoma who has completed bendamustine and rituximab C1, admitted for septic shock 1. Septic Shock, hypotension ,Fever: ID is involved, appreciate multidisciplinary assistance, on broad spec antimicrobials, I d/w Dr Hernandez. 2. diarrhea, poss colitis on ct? GI consulted. 3. Elevated bili: likely due to septic shock. 4. Marginal zone lymphoma: Chemotherapy on hold, G-CSF not needed at this time. s/p 1 cycle bendmustine and rituximab. Responsing well, improved splenomegaly. 5. Acute renal failure likely from septic shock, nephrology consulted. Comment Review of Relevant I have reviewed the following items kike (where applicable) has been applied. Labs Laboratory Tests Test 12/02/18 23:30 12/03/18 00:45 12/03/18 03:12 12/03/18 08:50 Prothrombin Time 14.9 SEC (11.7-14.0) Prothromb Time International Ratio 1.2 (0.8-1.1) Lactic Acid Level 6.1 mmol/L (0.4-2.0) 3.0 mmol/L (0.4-2.0) Influenza Type A Antigen Negative (NEGATIVE) Influenza Type B Antigen Negative (NEGATIVE) White Blood Count 4.5 x10^3/uL (4.0-11.0) Red Blood Count 3.67 x10^6/uL (3.50-5.40) Hemoglobin 9.6 g/dL (12.0-15.5) Hematocrit 29.8 % (36.0-47.0) Mean Corpuscular Volume 81 fL (79-100) Mean Corpuscular Hemoglobin 26 pg (25-35) Mean Corpuscular Hemoglobin Concent 32 g/dL (31-37) Red Cell Distribution Width 15.0 % (11.5-14.5) Platelet Count 170 x10^3/uL (140-400) Neutrophils (%) (Auto) 96 % (31-73) Lymphocytes (%) (Auto) 0 % (24-48) Monocytes (%) (Auto) 3 % (0-9) Eosinophils (%) (Auto) 1 % (0-3) Basophils (%) (Auto) 0 % (0-3) Neutrophils # (Auto) 4.3 x10^3uL (1.8-7.7) Lymphocytes # (Auto) 0.0 x10^3/uL (1.0-4.8) Monocytes # (Auto) 0.1 x10^3/uL (0.0-1.1) Eosinophils # (Auto) 0.0 x10^3/uL (0.0-0.7) Basophils # (Auto) 0.0 x10^3/uL (0.0-0.2) Segmented Neutrophils % 55 % (35-66) Band Neutrophils % 38 % (0-9) Monocytes % 6 % (0-10) Eosinophils % 1 % (0-5) Toxic Vacuolation Slight Platelet Estimate Adequate (ADEQUATE) Giant Platelets Occ Ovalocytes Occ Sodium Level 137 mmol/L (136-145) Potassium Level 3.8 mmol/L (3.5-5.1) Chloride Level 103 mmol/L (98-107) Carbon Dioxide Level 20 mmol/L (21-32) Anion Gap 14 (6-14) Blood Urea Nitrogen 24 mg/dL (7-20) Creatinine 2.7 mg/dL (0.6-1.0) Estimated GFR (Cockcroft-Gault) 18.1 BUN/Creatinine Ratio 9 (6-20) Glucose Level 233 mg/dL (70-99) Calcium Level 7.1 mg/dL (8.5-10.1) Magnesium Level 1.2 mg/dL (1.8-2.4) 1.7 mg/dL (1.8-2.4) Total Bilirubin 4.6 mg/dL (0.2-1.0) Aspartate Amino Transf (AST/SGOT) 76 U/L (15-37) Alanine Aminotransferase (ALT/SGPT) 90 U/L (14-59) Alkaline Phosphatase 170 U/L (46-116) Creatine Kinase 63 U/L (26-192) Troponin I Quantitative 0.161 ng/mL (0.000-0.055) 0.358 ng/mL (0.000-0.055) Total Protein 3.9 g/dL (6.4-8.2) Albumin 1.7 g/dL (3.4-5.0) Albumin/Globulin Ratio 0.8 (1.0-1.7) Lipase 96 U/L (73-393) Procalcitonin > 125.00 ng/mL (0.00-0.10) Nasal Screen MRSA (PCR) Negative (Negative) Mycoplasma Serology (LAB) Negative (NEGATIVE) Test 12/03/18 14:00 12/03/18 19:20 12/04/18 05:00 Urine Collection Type Unknown Urine Color [place] Urine Clarity Turbid Urine pH 5.0 Urine Specific [place] >=1.030 Urine Protein 30 mg/dL (NEG-TRACE) Urine Glucose (UA) Negative mg/dL (NEG) Urine Ketones (Stick) 15 mg/dL (NEG) Urine Blood Negative (NEG) Urine Nitrite Negative (NEG) Urine Bilirubin Large (NEG) Urine Urobilinogen Dipstick 1.0 mg/dL (0.2 mg/dL) Urine Leukocyte Esterase Negative (NEG) Urine RBC 0 /HPF (0-2) Urine WBC 5-10 /HPF (0-4) Urine Squamous Epithelial Cells Mod /LPF Urine Transitional Epithelial Cells Mod /LPF Urine Amorphous Sediment Present /HPF Urine Bacteria 0 /HPF (0-FEW) Urine Granular Casts Few /HPF Urine Waxy Casts Occasional /HPF Hepatitis A IgM Antibody Nonreactive (Nonreactive) Hepatitis B Surface Antigen Nonreactive (Nonreactive) Hepatitis B Core IgM Antibody Nonreactive (Nonreactive) Hepatitis C IgG Antibody Nonreactive (Nonreactive) White Blood Count 2.1 x10^3/uL (4.0-11.0) Red Blood Count 3.22 x10^6/uL (3.50-5.40) Hemoglobin 8.7 g/dL (12.0-15.5) Hematocrit 26.0 % (36.0-47.0) Mean Corpuscular Volume 81 fL (79-100) Mean Corpuscular Hemoglobin 27 pg (25-35) Mean Corpuscular Hemoglobin Concent 33 g/dL (31-37) Red Cell Distribution Width 15.9 % (11.5-14.5) Platelet Count 100 x10^3/uL (140-400) Neutrophils (%) (Auto) 86 % (31-73) Lymphocytes (%) (Auto) 4 % (24-48) Monocytes (%) (Auto) 5 % (0-9) Eosinophils (%) (Auto) 4 % (0-3) Basophils (%) (Auto) 0 % (0-3) Neutrophils # (Auto) 1.8 x10^3uL (1.8-7.7) Lymphocytes # (Auto) 0.1 x10^3/uL (1.0-4.8) Monocytes # (Auto) 0.1 x10^3/uL (0.0-1.1) Eosinophils # (Auto) 0.1 x10^3/uL (0.0-0.7) Basophils # (Auto) 0.0 x10^3/uL (0.0-0.2) Sodium Level 136 mmol/L (136-145) Potassium Level 4.4 mmol/L (3.5-5.1) Chloride Level 106 mmol/L (98-107) Carbon Dioxide Level 19 mmol/L (21-32) Anion Gap 11 (6-14) Blood Urea Nitrogen 45 mg/dL (7-20) Creatinine 3.0 mg/dL (0.6-1.0) Estimated GFR (Cockcroft-Gault) 16.0 Glucose Level 124 mg/dL (70-99) Calcium Level 6.5 mg/dL (8.5-10.1) Total Bilirubin 12.1 mg/dL (0.2-1.0) Direct Bilirubin 10.8 mg/dL (0.0-0.2) Aspartate Amino Transf (AST/SGOT) 30 U/L (15-37) Alanine Aminotransferase (ALT/SGPT) 54 U/L (14-59) Alkaline Phosphatase 166 U/L (46-116) Total Protein 3.6 g/dL (6.4-8.2) Albumin 1.6 g/dL (3.4-5.0) Laboratory Tests Test 12/03/18 14:00 12/03/18 19:20 12/04/18 05:00 Urine Collection Type Unknown Urine Color [place] Urine Clarity Turbid Urine pH 5.0 Urine Specific [place] >=1.030 Urine Protein 30 mg/dL (NEG-TRACE) Urine Glucose (UA) Negative mg/dL (NEG) Urine Ketones (Stick) 15 mg/dL (NEG) Urine Blood Negative (NEG) Urine Nitrite Negative (NEG) Urine Bilirubin Large (NEG) Urine Urobilinogen Dipstick 1.0 mg/dL (0.2 mg/dL) Urine Leukocyte Esterase Negative (NEG) Urine RBC 0 /HPF (0-2) Urine WBC 5-10 /HPF (0-4) Urine Squamous Epithelial Cells Mod /LPF Urine Transitional Epithelial Cells Mod /LPF Urine Amorphous Sediment Present /HPF Urine Bacteria 0 /HPF (0-FEW) Urine Granular Casts Few /HPF Urine Waxy Casts Occasional /HPF Hepatitis A IgM Antibody Nonreactive (Nonreactive) Hepatitis B Surface Antigen Nonreactive (Nonreactive) Hepatitis B Core IgM Antibody Nonreactive (Nonreactive) Hepatitis C IgG Antibody Nonreactive (Nonreactive) White Blood Count 2.1 x10^3/uL (4.0-11.0) Red Blood Count 3.22 x10^6/uL (3.50-5.40) Hemoglobin 8.7 g/dL (12.0-15.5) Hematocrit 26.0 % (36.0-47.0) Mean Corpuscular Volume 81 fL (79-100) Mean Corpuscular Hemoglobin 27 pg (25-35) Mean Corpuscular Hemoglobin Concent 33 g/dL (31-37) Red Cell Distribution Width 15.9 % (11.5-14.5) Platelet Count 100 x10^3/uL (140-400) Neutrophils (%) (Auto) 86 % (31-73) Lymphocytes (%) (Auto) 4 % (24-48) Monocytes (%) (Auto) 5 % (0-9) Eosinophils (%) (Auto) 4 % (0-3) Basophils (%) (Auto) 0 % (0-3) Neutrophils # (Auto) 1.8 x10^3uL (1.8-7.7) Lymphocytes # (Auto) 0.1 x10^3/uL (1.0-4.8) Monocytes # (Auto) 0.1 x10^3/uL (0.0-1.1) Eosinophils # (Auto) 0.1 x10^3/uL (0.0-0.7) Basophils # (Auto) 0.0 x10^3/uL (0.0-0.2) Sodium Level 136 mmol/L (136-145) Potassium Level 4.4 mmol/L (3.5-5.1) Chloride Level 106 mmol/L (98-107) Carbon Dioxide Level 19 mmol/L (21-32) Anion Gap 11 (6-14) Blood Urea Nitrogen 45 mg/dL (7-20) Creatinine 3.0 mg/dL (0.6-1.0) Estimated GFR (Cockcroft-Gault) 16.0 Glucose Level 124 mg/dL (70-99) Calcium Level 6.5 mg/dL (8.5-10.1) Total Bilirubin 12.1 mg/dL (0.2-1.0) Direct Bilirubin 10.8 mg/dL (0.0-0.2) Aspartate Amino Transf (AST/SGOT) 30 U/L (15-37) Alanine Aminotransferase (ALT/SGPT) 54 U/L (14-59) Alkaline Phosphatase 166 U/L (46-116) Total Protein 3.6 g/dL (6.4-8.2) Albumin 1.6 g/dL (3.4-5.0) Microbiology 12/03/18 Blood Culture - Preliminary, Resulted NO GROWTH AFTER 1 DAY Medications Current Medications Sodium Chloride 1,000 ml @ 1,000 mls/hr 1X ONCE IV Last administered on at 23:50; Start 12/02/18 at 23:30; Stop 12/03/18 at 00:29; Status DC Sodium Chloride 1,000 ml @ 1,000 mls/hr 1X ONCE IV Last administered on at 00:08; Start 12/02/18 at 23:30; Stop 12/03/18 at 00:29; Status DC Meropenem 1 gm/ Sodium Chloride 100 ml @ 200 mls/hr Q8HRS IV Last administered on 12/02/18at 23:51; Start 12/03/18 at 00:00; Stop 12/03/18 at 03:21 ; Status DC Vancomycin HCl (Vanco Per Pharmacy) 1 each PRN DAILY PRN MC SEE COMMENTS Last administered on 12/03/18at 03:45; Start 12/02/18 at 23:30; Stop 12/03/18 at 07:49 ; Status DC Vancomycin HCl 2 gm/Sodium Chloride 500 ml @ 250 mls/hr 1X ONCE IV Last administered on 12/03/18at 00:12; Start 12/03/18 at 00:30; Stop 12/03/18 at 02:29 ; Status DC Iohexol (Omnipaque 300 Mg/ml) 75 ml 1X ONCE IV Last administered on 12/03/18at 00:41; Start 12/03/18 at 01:00; Stop 12/03/18 at 01:01; Status DC Info (CONTRAST GIVEN -- Rx MONITORING) 1 each PRN DAILY PRN MC SEE COMMENTS; Start 12/03/18 at 00:30; Stop 12/05/18 at 00:29 Sodium Chloride 1,000 ml @ 1,000 mls/hr 1X ONCE IV Last administered on at 01:08; Start 12/03/18 at 01:00; Stop 12/03/18 at 01:59; Status DC Norepinephrine Bitartrate 250 ml @ 0 mls/hr 1X ONCE IV Last administered on at 01:24; Start 12/03/18 at 01:30; Stop 12/03/18 at 01:31; Status DC Diphenhydramine HCl (Benadryl) 25 mg 1X ONCE IVP Last administered on at 02:01; Start 12/03/18 at 02:00; Stop 12/03/18 at 02:01; Status DC Magnesium Sulfate/ Dextrose 100 ml @ 100 mls/hr 1X ONCE IV Last administered on 12/03/18at 02:08; Start 12/03/18 at 02:00; Stop 12/03/18 at 02:59; Status DC Aspirin (Children'S Aspirin) 324 mg 1X ONCE PO Last administered on 12/03/18at 01:59; Start 12/03/18 at 02:00; Stop 12/03/18 at 02:01; Status DC Sodium Chloride 1,000 ml @ 175 mls/hr Q5H43M IV Last administered on at 04:23; Start 12/03/18 at 03:30; Stop 12/04/18 at 03:29; Status DC Meropenem 1 gm/ Sodium Chloride 100 ml @ 200 mls/hr Q12HR IV Last administered on 12/03/18at 20:33; Start 12/03/18 at 09:00 Vancomycin HCl 1.75 gm/Sodium Chloride 500 ml @ 250 mls/hr Q24H IV ; Start at 00:00; Stop 12/04/18 at 00:00; Status DC Vancomycin HCl (Vancomycin Trough Level) 1 each 1X ONCE MC ; Start 12/04/18 at 23:30; Stop 12/04/18 at 23:30; Status DC Diphenhydramine HCl (Benadryl) 25 mg PRN Q6HRS PRN IVP ITCHING; Start 12/03/18 at 04:45 Iohexol (Omnipaque 300 Mg/ml) 100 ml STK-MED ONCE .ROUTE ; Start 12/03/18 at 06: 01; Stop 12/03/18 at 06:02; Status DC Vancomycin HCl (Vancomycin Oral Solution) 125 mg [id number] PO Last administered on 12/03/18at 20:33; Start 12/03/18 at 09:00 Acetaminophen (Tylenol) 650 mg PRN Q6HRS PRN PO Headaches, Temp > 101.5' Last administered on 12/03/18at 20:25; Start 12/03/18 at 07:45 Lorazepam (Ativan) 0.5 mg PRN Q6HRS PRN IV ANXIETY / AGITATION; Start 12/03/18 at 07:45 Ondansetron HCl (Zofran) 4 mg PRN Q6HRS PRN IV NAUSEA/VOMITING; Start 12/03/18 at 07:45 Info (Icu Electrolyte Protocol) 1 ea DAILY MC Last administered on 12/03/18at 09 :00; Start 12/03/18 at 09:00 Heparin Sodium (Porcine) (Heparin Sodium) 5,000 unit Q8HRS SQ Last administered on 12/04/18at 06:19; Start 12/03/18 at 08:00 Sodium Chloride (Normal Saline Flush) 3 ml QSHIFT PRN IV AFTER MEDS AND BLOOD DRAWS; Start 12/03/18 at 07:45 Oxycodone/ Acetaminophen (Percocet 5/325) 1 tab PRN Q4HRS PRN PO MILD PAIN, 1ST CHOICE; Start 12/03/18 at 07:45 Morphine Sulfate (Morphine Sulfate) 2 mg PRN Q1HR PRN IV PAIN; Start 12/03/18 at 07:45 Aspirin (Children'S Aspirin) 81 mg DAILY PO Last administered on 12/03/18at 09: 52; Start 12/03/18 at 09:00 Clotrimazole (Mycelex-7) 1 estefany DAILY VG ; Start 12/03/18 at 09:00; Stop at 08:59 Duloxetine HCl (Cymbalta) 30 mg DAILY PO Last administered on 12/03/18at 09:52; Start 12/03/18 at 09:00 Levothyroxine Sodium (Synthroid) 100 mcg DAILY06 PO ; Start 12/03/18 at 08:00; Status Cancel Nystatin (Nystatin Oral Susp) 5 ml TID SWSW ; Start 12/03/18 at 09:00; Stop at 10:21; Status DC Ciprofloxacin/ Dextrose 200 ml @ 200 mls/hr Q12HR IV Last administered on 12/03at 20:33; Start 12/03/18 at 09:00 Daptomycin 460 mg/ Sodium Chloride 50 ml @ 100 mls/hr Q24H IV Last administered on 12/03/18at 09:51; Start 12/03/18 at 09:00 Micafungin Sodium 100 mg/Dextrose 100 ml @ 100 mls/hr Q24H IV Last administered on 12/03/18at 09:52; Start 12/03/18 at 09:00 Non-Formulary Medication 1 ea DAILY06 PO Last administered on 12/04/18at 06:18; Start 12/03/18 at 09:30 Magnesium Sulfate 50 ml @ 25 mls/hr 1X ONCE IV Last administered on 12/03/18at 11:09; Start 12/03/18 at 10:00; Stop 12/03/18 at 11:59; Status DC Norepinephrine Bitartrate 250 ml @ 1.875 mls/ hr CONT PRN IV SEE I/O RECORD Last administered on 12/03/18at 19:31; Start 12/03/18 at 11:15 Sodium Chloride 1,000 ml @ 999 mls/hr Q1H1M IV Last administered on 12/03/18at 14:24; Start 12/03/18 at 13:45; Stop 12/03/18 at 14:32; Status DC Vasopressin 40 unit/Dextrose 102 ml @ 6 mls/hr CONT PRN IV SEE I/O RECORD Last administered on 12/04/18at 09:01; Start 12/03/18 at 15:00 Active Scripts Active Nystatin 100,000 Unit/1 Ml Oral.susp 5 Ml SWSW TID 3 Days Clotrimazole 45 Gm Cream.appl 1 Estefany VG DAILY 3 Days Levaquin (Levofloxacin) 500 Mg Tablet 500 Mg PO DAILY06 7 Days Reported Biotin 10,000 Mcg Capsule 10,000 Mcg PO DAILY Multivitamins (Multivitamin) 1 Each Tablet 1 Each PO DAILY Metoprolol Tartrate 25 Mg Tablet 25 Mg PO DAILY Cymbalta (Duloxetine Hcl) 30 Mg Capsule.dr 1 Cap PO DAILY Aspirin 81 Mg Tab.chew 1 Tab PO DAILY Synthroid (Levothyroxine Sodium) 88 Mcg Tablet 100 Mcg PO DAILY [place] (Estradiol) 1 Each Patch.tdwk Latanoprost 2.5 Ml Drops 1 Drop EACHEYE QHS Vitals/I & O Vital Sign - Last 24 Hours 12/03/18 12/03/18 12/03/18 12/03/18 10:00 11:00 12:00 12:03 Temp 99.6 99.6 Pulse 112 115 120 Resp 16 16 16 B/P (MAP) 81/41 (54) 99/36 (57) 88/38 (55) Pulse Ox 97 97 95 O2 Delivery Room Air Room Air Room Air Room Air 12/03/18 12/03/18 12/03/18 12/03/18 13:00 14:00 16:00 16:01 Temp 100.6 101.4 100.6 101.4 Pulse 118 118 120 Resp 18 16 16 B/P (MAP) 99/52 (68) 95/47 (63) 101/47 (65) Pulse Ox 95 O2 Delivery Room Air Room Air Room Air Room Air 12/03/18 12/03/18 12/03/18 12/03/18 17:26 18:10 19:00 19:47 Temp 101.0 100.6 101.0 100.6 Pulse 116 116 110 116 Resp 18 16 16 B/P (MAP) 111/47 (68) 117/67 (84) 117/52 (73) 127/48 (74) Pulse Ox 95 96 95 O2 Delivery Room Air Room Air Room Air 12/03/18 12/03/18 12/03/18 12/03/18 20:00 20:03 20:22 20:41 Temp 101.1 101.1 Pulse 119 126 118 Resp 19 B/P (MAP) 126/65 (85) 131/45 (73) 120/52 (74) Pulse Ox 93 O2 Delivery Room Air Room Air 12/03/18 12/03/18 12/03/18 12/03/18 21:03 21:27 21:46 22:00 Temp 100.2 100.2 Pulse 121 122 122 119 Resp 17 17 B/P (MAP) 120/52 (74) 115/43 (67) 107/45 (65) 112/46 (68) Pulse Ox 94 93 O2 Delivery Room Air Room Air 12/03/18 12/03/18 12/04/18 12/04/18 22:20 23:00 00:00 00:00 Temp 101.0 99.5 101.0 99.5 Pulse 123 113 107 Resp 18 17 B/P (MAP) 97/40 (59) 100/45 (63) 110/43 (65) Pulse Ox 96 97 O2 Delivery Room Air Room Air Room Air 12/04/18 12/04/18 12/04/18 12/04/18 00:15 01:00 02:00 03:00 Pulse 113 117 110 107 Resp 16 16 15 B/P (MAP) 84/40 (55) 97/44 (61) 104/47 (66) 100/47 (64) Pulse Ox 94 96 93 O2 Delivery Room Air Room Air Room Air 12/04/18 12/04/18 12/04/18 12/04/18 04:00 04:00 05:00 05:15 Temp 99.3 99.3 Pulse 111 108 116 Resp 15 17 B/P (MAP) 100/46 (64) 108/47 (67) 106/45 (65) Pulse Ox 95 91 O2 Delivery Room Air Room Air Room Air 12/04/18 12/04/18 06:00 08:00 Pulse 114 Resp 16 B/P (MAP) 105/47 (66) Pulse Ox 93 O2 Delivery Room Air Room Air Intake and Output 12/03/18 12/03/18 12/04/18 15:00 23:00 07:00 Intake Total 1850 ml 3051 ml 2237 ml Output Total 440 ml 335 ml 600 ml Balance 1410 ml 2716 ml 1637 ml SANGEETA HERNANDEZ MD Dec 04, 2018 09:16
[2018-12-04] MEDS: DULoxetine HCL 30 MG CAPSULE.DR PO SCH (09:33)
[2018-12-04] MEDS: ASPIRIN CHEWABLE 81 MG TABLET. PO SCH (09:33)
[2018-12-04] MEDS: DAPTOmycin (GENERIC) IVPB 460 MG in IV NORMAL SALINE 50ML 50 ML IV SCH (09:34)
[2018-12-04] MEDS: VANCOMYCIN 125 MG/2.5 ML ORAL SOLUTION. PO SCH ×4 (09:35→20:34)
[2018-12-04] MEDS: CLOTRIMAZOLE 1% VAGINAL CREAM 45GM TUBE. VG SCH (09:36)
--- NOTE | 2018-12-04 09:50 | PDOC ---
Subjective: Subjective: Doesn't say much today. Denies pruritus. Vague abd pain when touched. Loose stool last night. Objective: Objective: D/w Dr. Hernandez and Dr. Luis. Vital Signs: Vital Signs Date Time Temp Pulse Resp B/P (MAP) Pulse Ox O2 Delivery O2 Flow Rate FiO2 12/04/18 08:00 Room Air 12/04/18 06:00 114 16 105/47 (66) 93 12/04/18 04:00 99.3 99.3 Labs: Laboratory Tests Test 12/03/18 14:00 12/03/18 19:20 12/04/18 05:00 Urine Collection Type Unknown Urine Color [place] Urine Clarity Turbid Urine pH 5.0 Urine Specific [place] >=1.030 Urine Protein 30 mg/dL Urine Glucose (UA) Negative mg/dL Urine Ketones (Stick) 15 mg/dL Urine Blood Negative Urine Nitrite Negative Urine Bilirubin Large Urine Urobilinogen Dipstick 1.0 mg/dL Urine Leukocyte Esterase Negative Urine RBC 0 /HPF Urine WBC 5-10 /HPF Urine Squamous Epithelial Cells Mod /LPF Urine Transitional Epithelial Cells Mod /LPF Urine Amorphous Sediment Present /HPF Urine Bacteria 0 /HPF Urine Granular Casts Few /HPF Urine Waxy Casts Occasional /HPF Hepatitis A IgM Antibody Nonreactive Hepatitis B Surface Antigen Nonreactive Hepatitis B Core IgM Antibody Nonreactive Hepatitis C IgG Antibody Nonreactive White Blood Count 2.1 x10^3/uL Red Blood Count 3.22 x10^6/uL Hemoglobin 8.7 g/dL Hematocrit 26.0 % Mean Corpuscular Volume 81 fL Mean Corpuscular Hemoglobin 27 pg Mean Corpuscular Hemoglobin Concent 33 g/dL Red Cell Distribution Width 15.9 % Platelet Count 100 x10^3/uL Neutrophils (%) (Auto) 86 % Lymphocytes (%) (Auto) 4 % Monocytes (%) (Auto) 5 % Eosinophils (%) (Auto) 4 % Basophils (%) (Auto) 0 % Neutrophils # (Auto) 1.8 x10^3uL Lymphocytes # (Auto) 0.1 x10^3/uL Monocytes # (Auto) 0.1 x10^3/uL Eosinophils # (Auto) 0.1 x10^3/uL Basophils # (Auto) 0.0 x10^3/uL Sodium Level 136 mmol/L Potassium Level 4.4 mmol/L Chloride Level 106 mmol/L Carbon Dioxide Level 19 mmol/L Anion Gap 11 Blood Urea Nitrogen 45 mg/dL Creatinine 3.0 mg/dL Estimated GFR (Cockcroft-Gault) 16.0 Glucose Level 124 mg/dL Calcium Level 6.5 mg/dL Total Bilirubin 12.1 mg/dL Direct Bilirubin 10.8 mg/dL Aspartate Amino Transf (AST/SGOT) 30 U/L Alanine Aminotransferase (ALT/SGPT) 54 U/L Alkaline Phosphatase 166 U/L Total Protein 3.6 g/dL Albumin 1.6 g/dL BLOOD CULTURE Preliminary NO GROWTH AFTER 1 DAY Imaging: Echo <Conclusion> The left ventricle is normal size. The left ventricular systolic function is normal and the ejection fraction is within normal range. The Ejection Fraction is 60-65%. There is mild concentric left ventricular hypertrophy. Doppler and Color Flow revealed no significant aortic regurgitation. There is no significant aortic valvular stenosis. Doppler and Color-flow revealed mild mitral regurgitation. Doppler and Color Flow revealed trace tricuspid valve regurgitation noted. PE: GEN: NAD LUNGS: clear anteriorly HEART: tachycardic ABD: vague tenderness BLQ SKIN: +jaundice NEURO/PSYCH: A & O 3, quiet A/P: Fever, lactic acidosis Pancytopenia, hyperbilirubinemia, elevated Alk Phos Hepatic steatosis, splenomegaly (improved), s/p steven Loose stools Marginal zone lymphoma (recent chemo), NSTEMI, ELISE -- Bili from 4 to 12. Reviewed w/ Propeck - check MRCP r/o retained stone. Await pending labs. ALEXANDER ROSS Dec 04, 2018 09:50
--- NOTE | 2018-12-04 10:37 | PDOC ---
PROGRESS NOTES History of Present Illness History of Present Illness Assessment/Plan Hypovolemic shock vs septic shock, etiology most likely from GI source Lactic acidosis secondary to septic shock extreme morbid obesity Bandemia Splenomegaly. Acute renal failure, vasomotor cr up 3.0 No left-sided hydronephrosis. Urinary bladder is decompressed. No right-sided hydronephrosis. Severe dehydration Transaminitis secondary to hypoperfusion, shock liver would have higher transaminases ,continue to monitor. marginal zone lymphoma History of atrial fibrillation History of essential hypertension severe protein-caloric malnutrition Elevated troponin due to septic shock. Plan: MRCP r/o retained stone. iv dapto, meropenem and cipro and micafungin sepsis protocol fluid and volume resuscitation prn albumin nephrology consult continue levophed prn pressor support DVT prophylaxis: heparin ionized ca 12/04 poor appetite lunch tray not touched, nephrology consulted, flat affect 35 MIN CC TIME Vitals Vitals Vital Signs Date Time Temp Pulse Resp B/P (MAP) Pulse Ox O2 Delivery O2 Flow Rate FiO2 12/04/18 08:00 Room Air 12/04/18 06:00 114 16 105/47 (66) 93 12/04/18 04:00 99.3 99.3 Physical Exam Physical Exam GENERAL: Propped up in bed, awake, HEENT: Oral cavity clear, no thrush or lesions NECK: Supple, no JVP, no lymphadenopathy. LUNGS: Clear. HEART: S1, S2 regular. ABDOMEN: Obese, soft and nontender EXTREMITIES: No edema or cyanosis. SKIN: Maculopapular rash all over the body PSYCHOLOGIST EDUCATIONAL: Alert, responds appropriately Port-A-Cath without signs of any complications . General: Alert, Oriented X3, Cooperative, mild distress Heart: Normal S1, Normal S2 Lungs: Clear Abdomen: Normal bowel sounds, Soft, No tenderness Extremities: No cyanosis, Other (1+ bilateral LE pitting edema) Skin: No breakdown, No significant lesion Labs LABS PATIENT: DEVAN LIU ACCT: [id number] LOC: 1 [facility]ST ICU U : [id number] AGE/SX: 58/F ROOM: 103 REG : 12/03/[address]: HAO DIGGS MD : 1960 BED: 1 DIS : STATUS: ADM IN TLOC: SPEC #: [id number] EDDIE: 12/02/18 STATUS: RES REQ #: [id number] RECD: 12/03/[address]: MICHAEL JOHNSON MD SOURCE: BLOOD ENTR: 12/02/[address] [facility] [address]: ISRAEL QUIÑONES MD [facility]: ORDERED: BCULT Procedure Result BLOOD CULTURE Preliminary NO GROWTH AFTER 1 DAY Microbiology 11/25/18 Blood Culture - Preliminary, Resulted NO GROWTH AFTER 2 DAYS 11/25/18 Urine Culture - Final, Complete TECHNIQUE: Axial CT images obtained through the chest, abdomen and pelvis with contrast. One or more of the following individualized dose reduction techniques were utilized for this examination: 1. Automated exposure control; 2. Adjustment of the mA and/or kV according to patient size; 3. Use of iterative reconstruction technique. FINDINGS: Chest: No evidence of pneumothorax. Minimal probable dependent atelectasis. Port with tip in right atrial region. There are some prominent lymph nodes in the mediastinum. For example precarinal region measuring up to about 11 mm short axis. Degenerative changes spine. Thoracic aorta is not aneurysmal. Portion of a ascending thoracic aorta is obscured by motion. Abdomen and pelvis: Abdominal aorta not aneurysmal. Postcholecystectomy changes. No peripancreatic fluid collection. Splenomegaly. No left-sided hydronephrosis. Urinary bladder is decompressed. No right-sided hydronephrosis. Indistinctness adjacent to urinary bladder. No definite periappendiceal inflammation. No dilated loops of bowel to suggest obstruction. Degenerative changes of the spine with central canal neural foraminal stenosis. IMPRESSION: 1. Splenomegaly is identified. 2. Urinary bladder is not very distended but there is some mild indistinctness of fat adjacent to it. Nonspecific in nature but would correlate with symptoms to ensure there is not a pathologic cause such as mild cystitis. 3. There is some apparent wall thickening of the colon. The colon is not very distended therefore it is possible that this is secondary to lack of distention but if the patient has appropriate symptoms colitis is possible. Electronically signed by: Mandeep Bear MD (12/03/2018 1:55 AM) [facility] DICTATED and SIGNED BY: MANDEEP BEAR MD DATE: 12/03/18 0155 Indication:ELEVATED BILI/LFT'S TECHNIQUE: Grayscale, color Doppler and spectral waveform is of the abdomen obtained. COMPARISON:CT abdomen pelvis from the same day FINDINGS: Visualized pancreas within normal limits. IVC is patent. No aortic aneurysm. Liver measures 17 cm in AP dimension with diffuse increased echogenicity and is normal in size. Main portal vein is patent. Status post cholecystectomy. CBD measures 5 mm in diameter and is within normal limits. Right kidney measures 13.3 cm in length without hydronephrosis. Spleen measures 16 cm in longest dimension and is mildly enlarged in size. Left kidney measures 11.7 cm in length without hydronephrosis. IMPRESSION: 1. Hepatic steatosis. 2. Interval improvement in previously seen splenomegaly. Electronically signed by: Jh Bonilla DO (12/03/2018 3:05 PM) [facility] DICTATED and SIGNED BY: JH BONILLA DO DATE: 12/03/18 1505 Laboratory Tests Test 12/03/18 14:00 12/03/18 19:20 12/04/18 05:00 Urine Collection Type Unknown Urine Color Churchill Urine Clarity Turbid Urine pH 5.0 Urine Specific [place] >=1.030 Urine Protein 30 mg/dL (NEG-TRACE) Urine Glucose (UA) Negative mg/dL (NEG) Urine Ketones (Stick) 15 mg/dL (NEG) Urine Blood Negative (NEG) Urine Nitrite Negative (NEG) Urine Bilirubin Large (NEG) Urine Urobilinogen Dipstick 1.0 mg/dL (0.2 mg/dL) Urine Leukocyte Esterase Negative (NEG) Urine RBC 0 /HPF (0-2) Urine WBC 5-10 /HPF (0-4) Urine Squamous Epithelial Cells Mod /LPF Urine Transitional Epithelial Cells Mod /LPF Urine Amorphous Sediment Present /HPF Urine Bacteria 0 /HPF (0-FEW) Urine Granular Casts Few /HPF Urine Waxy Casts Occasional /HPF Hepatitis A IgM Antibody Nonreactive (Nonreactive) Hepatitis B Surface Antigen Nonreactive (Nonreactive) Hepatitis B Core IgM Antibody Nonreactive (Nonreactive) Hepatitis C IgG Antibody Nonreactive (Nonreactive) White Blood Count 2.1 x10^3/uL (4.0-11.0) Red Blood Count 3.22 x10^6/uL (3.50-5.40) Hemoglobin 8.7 g/dL (12.0-15.5) Hematocrit 26.0 % (36.0-47.0) Mean Corpuscular Volume 81 fL (79-100) Mean Corpuscular Hemoglobin 27 pg (25-35) Mean Corpuscular Hemoglobin Concent 33 g/dL (31-37) Red Cell Distribution Width 15.9 % (11.5-14.5) Platelet Count 100 x10^3/uL (140-400) Neutrophils (%) (Auto) 86 % (31-73) Lymphocytes (%) (Auto) 4 % (24-48) Monocytes (%) (Auto) 5 % (0-9) Eosinophils (%) (Auto) 4 % (0-3) Basophils (%) (Auto) 0 % (0-3) Neutrophils # (Auto) 1.8 x10^3uL (1.8-7.7) Lymphocytes # (Auto) 0.1 x10^3/uL (1.0-4.8) Monocytes # (Auto) 0.1 x10^3/uL (0.0-1.1) Eosinophils # (Auto) 0.1 x10^3/uL (0.0-0.7) Basophils # (Auto) 0.0 x10^3/uL (0.0-0.2) Sodium Level 136 mmol/L (136-145) Potassium Level 4.4 mmol/L (3.5-5.1) Chloride Level 106 mmol/L (98-107) Carbon Dioxide Level 19 mmol/L (21-32) Anion Gap 11 (6-14) Blood Urea Nitrogen 45 mg/dL (7-20) Creatinine 3.0 mg/dL (0.6-1.0) Estimated GFR (Cockcroft-Gault) 16.0 Glucose Level 124 mg/dL (70-99) Calcium Level 6.5 mg/dL (8.5-10.1) Total Bilirubin 12.1 mg/dL (0.2-1.0) Direct Bilirubin 10.8 mg/dL (0.0-0.2) Aspartate Amino Transf (AST/SGOT) 30 U/L (15-37) Alanine Aminotransferase (ALT/SGPT) 54 U/L (14-59) Alkaline Phosphatase 166 U/L (46-116) Total Protein 3.6 g/dL (6.4-8.2) Albumin 1.6 g/dL (3.4-5.0) Comment Review of Relevant I have reviewed the following items kike (where applicable) has been applied. Labs Laboratory Tests Test 12/02/18 23:30 12/03/18 00:45 12/03/18 03:12 12/03/18 08:50 Prothrombin Time 14.9 SEC (11.7-14.0) Prothromb Time International Ratio 1.2 (0.8-1.1) Lactic Acid Level 6.1 mmol/L (0.4-2.0) 3.0 mmol/L (0.4-2.0) Influenza Type A Antigen Negative (NEGATIVE) Influenza Type B Antigen Negative (NEGATIVE) White Blood Count 4.5 x10^3/uL (4.0-11.0) Red Blood Count 3.67 x10^6/uL (3.50-5.40) Hemoglobin 9.6 g/dL (12.0-15.5) Hematocrit 29.8 % (36.0-47.0) Mean Corpuscular Volume 81 fL (79-100) Mean Corpuscular Hemoglobin 26 pg (25-35) Mean Corpuscular Hemoglobin Concent 32 g/dL (31-37) Red Cell Distribution Width 15.0 % (11.5-14.5) Platelet Count 170 x10^3/uL (140-400) Neutrophils (%) (Auto) 96 % (31-73) Lymphocytes (%) (Auto) 0 % (24-48) Monocytes (%) (Auto) 3 % (0-9) Eosinophils (%) (Auto) 1 % (0-3) Basophils (%) (Auto) 0 % (0-3) Neutrophils # (Auto) 4.3 x10^3uL (1.8-7.7) Lymphocytes # (Auto) 0.0 x10^3/uL (1.0-4.8) Monocytes # (Auto) 0.1 x10^3/uL (0.0-1.1) Eosinophils # (Auto) 0.0 x10^3/uL (0.0-0.7) Basophils # (Auto) 0.0 x10^3/uL (0.0-0.2) Segmented Neutrophils % 55 % (35-66) Band Neutrophils % 38 % (0-9) Monocytes % 6 % (0-10) Eosinophils % 1 % (0-5) Toxic Vacuolation Slight Platelet Estimate Adequate (ADEQUATE) Giant Platelets Occ Ovalocytes Occ Sodium Level 137 mmol/L (136-145) Potassium Level 3.8 mmol/L (3.5-5.1) Chloride Level 103 mmol/L (98-107) Carbon Dioxide Level 20 mmol/L (21-32) Anion Gap 14 (6-14) Blood Urea Nitrogen 24 mg/dL (7-20) Creatinine 2.7 mg/dL (0.6-1.0) Estimated GFR (Cockcroft-Gault) 18.1 BUN/Creatinine Ratio 9 (6-20) Glucose Level 233 mg/dL (70-99) Calcium Level 7.1 mg/dL (8.5-10.1) Magnesium Level 1.2 mg/dL (1.8-2.4) 1.7 mg/dL (1.8-2.4) Total Bilirubin 4.6 mg/dL (0.2-1.0) Aspartate Amino Transf (AST/SGOT) 76 U/L (15-37) Alanine Aminotransferase (ALT/SGPT) 90 U/L (14-59) Alkaline Phosphatase 170 U/L (46-116) Creatine Kinase 63 U/L (26-192) Troponin I Quantitative 0.161 ng/mL (0.000-0.055) 0.358 ng/mL (0.000-0.055) Total Protein 3.9 g/dL (6.4-8.2) Albumin 1.7 g/dL (3.4-5.0) Albumin/Globulin Ratio 0.8 (1.0-1.7) Lipase 96 U/L (73-393) Procalcitonin > 125.00 ng/mL (0.00-0.10) Nasal Screen MRSA (PCR) Negative (Negative) Mycoplasma Serology (LAB) Negative (NEGATIVE) Test 12/03/18 14:00 12/03/18 19:20 12/04/18 05:00 Urine Collection Type Unknown Urine Color Churchill Urine Clarity Turbid Urine pH 5.0 Urine Specific [place] >=1.030 Urine Protein 30 mg/dL (NEG-TRACE) Urine Glucose (UA) Negative mg/dL (NEG) Urine Ketones (Stick) 15 mg/dL (NEG) Urine Blood Negative (NEG) Urine Nitrite Negative (NEG) Urine Bilirubin Large (NEG) Urine Urobilinogen Dipstick 1.0 mg/dL (0.2 mg/dL) Urine Leukocyte Esterase Negative (NEG) Urine RBC 0 /HPF (0-2) Urine WBC 5-10 /HPF (0-4) Urine Squamous Epithelial Cells Mod /LPF Urine Transitional Epithelial Cells Mod /LPF Urine Amorphous Sediment Present /HPF Urine Bacteria 0 /HPF (0-FEW) Urine Granular Casts Few /HPF Urine Waxy Casts Occasional /HPF Hepatitis A IgM Antibody Nonreactive (Nonreactive) Hepatitis B Surface Antigen Nonreactive (Nonreactive) Hepatitis B Core IgM Antibody Nonreactive (Nonreactive) Hepatitis C IgG Antibody Nonreactive (Nonreactive) White Blood Count 2.1 x10^3/uL (4.0-11.0) Red Blood Count 3.22 x10^6/uL (3.50-5.40) Hemoglobin 8.7 g/dL (12.0-15.5) Hematocrit 26.0 % (36.0-47.0) Mean Corpuscular Volume 81 fL (79-100) Mean Corpuscular Hemoglobin 27 pg (25-35) Mean Corpuscular Hemoglobin Concent 33 g/dL (31-37) Red Cell Distribution Width 15.9 % (11.5-14.5) Platelet Count 100 x10^3/uL (140-400) Neutrophils (%) (Auto) 86 % (31-73) Lymphocytes (%) (Auto) 4 % (24-48) Monocytes (%) (Auto) 5 % (0-9) Eosinophils (%) (Auto) 4 % (0-3) Basophils (%) (Auto) 0 % (0-3) Neutrophils # (Auto) 1.8 x10^3uL (1.8-7.7) Lymphocytes # (Auto) 0.1 x10^3/uL (1.0-4.8) Monocytes # (Auto) 0.1 x10^3/uL (0.0-1.1) Eosinophils # (Auto) 0.1 x10^3/uL (0.0-0.7) Basophils # (Auto) 0.0 x10^3/uL (0.0-0.2) Sodium Level 136 mmol/L (136-145) Potassium Level 4.4 mmol/L (3.5-5.1) Chloride Level 106 mmol/L (98-107) Carbon Dioxide Level 19 mmol/L (21-32) Anion Gap 11 (6-14) Blood Urea Nitrogen 45 mg/dL (7-20) Creatinine 3.0 mg/dL (0.6-1.0) Estimated GFR (Cockcroft-Gault) 16.0 Glucose Level 124 mg/dL (70-99) Calcium Level 6.5 mg/dL (8.5-10.1) Total Bilirubin 12.1 mg/dL (0.2-1.0) Direct Bilirubin 10.8 mg/dL (0.0-0.2) Aspartate Amino Transf (AST/SGOT) 30 U/L (15-37) Alanine Aminotransferase (ALT/SGPT) 54 U/L (14-59) Alkaline Phosphatase 166 U/L (46-116) Total Protein 3.6 g/dL (6.4-8.2) Albumin 1.6 g/dL (3.4-5.0) Laboratory Tests Test 12/03/18 14:00 12/03/18 19:20 12/04/18 05:00 Urine Collection Type Unknown Urine Color Churchill Urine Clarity Turbid Urine pH 5.0 Urine Specific [place] >=1.030 Urine Protein 30 mg/dL (NEG-TRACE) Urine Glucose (UA) Negative mg/dL (NEG) Urine Ketones (Stick) 15 mg/dL (NEG) Urine Blood Negative (NEG) Urine Nitrite Negative (NEG) Urine Bilirubin Large (NEG) Urine Urobilinogen Dipstick 1.0 mg/dL (0.2 mg/dL) Urine Leukocyte Esterase Negative (NEG) Urine RBC 0 /HPF (0-2) Urine WBC 5-10 /HPF (0-4) Urine Squamous Epithelial Cells Mod /LPF Urine Transitional Epithelial Cells Mod /LPF Urine Amorphous Sediment Present /HPF Urine Bacteria 0 /HPF (0-FEW) Urine Granular Casts Few /HPF Urine Waxy Casts Occasional /HPF Hepatitis A IgM Antibody Nonreactive (Nonreactive) Hepatitis B Surface Antigen Nonreactive (Nonreactive) Hepatitis B Core IgM Antibody Nonreactive (Nonreactive) Hepatitis C IgG Antibody Nonreactive (Nonreactive) White Blood Count 2.1 x10^3/uL (4.0-11.0) Red Blood Count 3.22 x10^6/uL (3.50-5.40) Hemoglobin 8.7 g/dL (12.0-15.5) Hematocrit 26.0 % (36.0-47.0) Mean Corpuscular Volume 81 fL (79-100) Mean Corpuscular Hemoglobin 27 pg (25-35) Mean Corpuscular Hemoglobin Concent 33 g/dL (31-37) Red Cell Distribution Width 15.9 % (11.5-14.5) Platelet Count 100 x10^3/uL (140-400) Neutrophils (%) (Auto) 86 % (31-73) Lymphocytes (%) (Auto) 4 % (24-48) Monocytes (%) (Auto) 5 % (0-9) Eosinophils (%) (Auto) 4 % (0-3) Basophils (%) (Auto) 0 % (0-3) Neutrophils # (Auto) 1.8 x10^3uL (1.8-7.7) Lymphocytes # (Auto) 0.1 x10^3/uL (1.0-4.8) Monocytes # (Auto) 0.1 x10^3/uL (0.0-1.1) Eosinophils # (Auto) 0.1 x10^3/uL (0.0-0.7) Basophils # (Auto) 0.0 x10^3/uL (0.0-0.2) Sodium Level 136 mmol/L (136-145) Potassium Level 4.4 mmol/L (3.5-5.1) Chloride Level 106 mmol/L (98-107) Carbon Dioxide Level 19 mmol/L (21-32) Anion Gap 11 (6-14) Blood Urea Nitrogen 45 mg/dL (7-20) Creatinine 3.0 mg/dL (0.6-1.0) Estimated GFR (Cockcroft-Gault) 16.0 Glucose Level 124 mg/dL (70-99) Calcium Level 6.5 mg/dL (8.5-10.1) Total Bilirubin 12.1 mg/dL (0.2-1.0) Direct Bilirubin 10.8 mg/dL (0.0-0.2) Aspartate Amino Transf (AST/SGOT) 30 U/L (15-37) Alanine Aminotransferase (ALT/SGPT) 54 U/L (14-59) Alkaline Phosphatase 166 U/L (46-116) Total Protein 3.6 g/dL (6.4-8.2) Albumin 1.6 g/dL (3.4-5.0) Microbiology 12/03/18 Blood Culture - Preliminary, Resulted NO GROWTH AFTER 1 DAY Medications Current Medications Sodium Chloride 1,000 ml @ 1,000 mls/hr 1X ONCE IV Last administered on at 23:50; Start 12/02/18 at 23:30; Stop 12/03/18 at 00:29; Status DC Sodium Chloride 1,000 ml @ 1,000 mls/hr 1X ONCE IV Last administered on at 00:08; Start 12/02/18 at 23:30; Stop 12/03/18 at 00:29; Status DC Meropenem 1 gm/ Sodium Chloride 100 ml @ 200 mls/hr Q8HRS IV Last administered on 12/02/18at 23:51; Start 12/03/18 at 00:00; Stop 12/03/18 at 03:21 ; Status DC Vancomycin HCl (Vanco Per Pharmacy) 1 each PRN DAILY PRN MC SEE COMMENTS Last administered on 12/03/18at 03:45; Start 12/02/18 at 23:30; Stop 12/03/18 at 07:49 ; Status DC Vancomycin HCl 2 gm/Sodium Chloride 500 ml @ 250 mls/hr 1X ONCE IV Last administered on 12/03/18at 00:12; Start 12/03/18 at 00:30; Stop 12/03/18 at 02:29 ; Status DC Iohexol (Omnipaque 300 Mg/ml) 75 ml 1X ONCE IV Last administered on 12/03/18at 00:41; Start 12/03/18 at 01:00; Stop 12/03/18 at 01:01; Status DC Info (CONTRAST GIVEN -- Rx MONITORING) 1 each PRN DAILY PRN MC SEE COMMENTS; Start 12/03/18 at 00:30; Stop 12/05/18 at 00:29 Sodium Chloride 1,000 ml @ 1,000 mls/hr 1X ONCE IV Last administered on at 01:08; Start 12/03/18 at 01:00; Stop 12/03/18 at 01:59; Status DC Norepinephrine Bitartrate 250 ml @ 0 mls/hr 1X ONCE IV Last administered on at 01:24; Start 12/03/18 at 01:30; Stop 12/03/18 at 01:31; Status DC Diphenhydramine HCl (Benadryl) 25 mg 1X ONCE IVP Last administered on at 02:01; Start 12/03/18 at 02:00; Stop 12/03/18 at 02:01; Status DC Magnesium Sulfate/ Dextrose 100 ml @ 100 mls/hr 1X ONCE IV Last administered on 12/03/18at 02:08; Start 12/03/18 at 02:00; Stop 12/03/18 at 02:59; Status DC Aspirin (Children'S Aspirin) 324 mg 1X ONCE PO Last administered on 12/03/18at 01:59; Start 12/03/18 at 02:00; Stop 12/03/18 at 02:01; Status DC Sodium Chloride 1,000 ml @ 175 mls/hr Q5H43M IV Last administered on at 04:23; Start 12/03/18 at 03:30; Stop 12/04/18 at 03:29; Status DC Meropenem 1 gm/ Sodium Chloride 100 ml @ 200 mls/hr Q12HR IV Last administered on 12/04/18at 09:05; Start 12/03/18 at 09:00 Vancomycin HCl 1.75 gm/Sodium Chloride 500 ml @ 250 mls/hr Q24H IV ; Start at 00:00; Stop 12/04/18 at 00:00; Status DC Vancomycin HCl (Vancomycin Trough Level) 1 each 1X ONCE MC ; Start 12/04/18 at 23:30; Stop 12/04/18 at 23:30; Status DC Diphenhydramine HCl (Benadryl) 25 mg PRN Q6HRS PRN IVP ITCHING; Start 12/03/18 at 04:45 Iohexol (Omnipaque 300 Mg/ml) 100 ml STK-MED ONCE .ROUTE ; Start 12/03/18 at 06: 01; Stop 12/03/18 at 06:02; Status DC Vancomycin HCl (Vancomycin Oral Solution) 125 mg [id number] PO Last administered on 12/04/18at 09:35; Start 12/03/18 at 09:00 Acetaminophen (Tylenol) 650 mg PRN Q6HRS PRN PO Headaches, Temp > 101.5' Last administered on 12/03/18at 20:25; Start 12/03/18 at 07:45 Lorazepam (Ativan) 0.5 mg PRN Q6HRS PRN IV ANXIETY / AGITATION; Start 12/03/18 at 07:45 Ondansetron HCl (Zofran) 4 mg PRN Q6HRS PRN IV NAUSEA/VOMITING; Start 12/03/18 at 07:45 Info (Icu Electrolyte Protocol) 1 ea DAILY MC Last administered on 12/03/18at 09 :00; Start 12/03/18 at 09:00 Heparin Sodium (Porcine) (Heparin Sodium) 5,000 unit Q8HRS SQ Last administered on 12/04/18at 06:19; Start 12/03/18 at 08:00 Sodium Chloride (Normal Saline Flush) 3 ml QSHIFT PRN IV AFTER MEDS AND BLOOD DRAWS; Start 12/03/18 at 07:45 Oxycodone/ Acetaminophen (Percocet 5/325) 1 tab PRN Q4HRS PRN PO MILD PAIN, 1ST CHOICE; Start 12/03/18 at 07:45 Morphine Sulfate (Morphine Sulfate) 2 mg PRN Q1HR PRN IV PAIN; Start 12/03/18 at 07:45 Aspirin (Children'S Aspirin) 81 mg DAILY PO Last administered on 12/04/18at 09: 33; Start 12/03/18 at 09:00 Clotrimazole (Mycelex-7) 1 ger DAILY VG Last administered on 12/04/18at 09:36; Start 12/03/18 at 09:00; Stop 12/10/18 at 08:59 Duloxetine HCl (Cymbalta) 30 mg DAILY PO Last administered on 12/04/18at 09:33; Start 12/03/18 at 09:00 Levothyroxine Sodium (Synthroid) 100 mcg DAILY06 PO ; Start 12/03/18 at 08:00; Status Cancel Nystatin (Nystatin Oral Susp) 5 ml TID SWSW ; Start 12/03/18 at 09:00; Stop at 10:21; Status DC Ciprofloxacin/ Dextrose 200 ml @ 200 mls/hr Q12HR IV Last administered on 12/04at 09:06; Start 12/03/18 at 09:00 Daptomycin 460 mg/ Sodium Chloride 50 ml @ 100 mls/hr Q24H IV Last administered on 12/04/18at 09:34; Start 12/03/18 at 09:00 Micafungin Sodium 100 mg/Dextrose 100 ml @ 100 mls/hr Q24H IV Last administered on 12/04/18 09:06; Start 12/03/18 at 09:00 Non-Formulary Medication 1 ea DAILY06 PO Last administered on 12/04/18at 06:18; Start 12/03/18 at 09:30 Magnesium Sulfate 50 ml @ 25 mls/hr 1X ONCE IV Last administered on 12/03/18at 11:09; Start 12/03/18 at 10:00; Stop 12/03/18 at 11:59; Status DC Norepinephrine Bitartrate 250 ml @ 1.875 mls/ hr CONT PRN IV SEE I/O RECORD Last administered on 12/03/18at 19:31; Start 12/03/18 at 11:15 Sodium Chloride 1,000 ml @ 999 mls/hr Q1H1M IV Last administered on 12/03/18at 14:24; Start 12/03/18 at 13:45; Stop 12/03/18 at 14:32; Status DC Vasopressin 40 unit/Dextrose 102 ml @ 6 mls/hr CONT PRN IV SEE I/O RECORD Last administered on 12/04/18at 09:01; Start 12/03/18 at 15:00 Active Scripts Active Nystatin 100,000 Unit/1 Ml Oral.susp 5 Ml SWSW TID 3 Days Clotrimazole 45 Gm Cream.appl 1 Ger VG DAILY 3 Days Levaquin (Levofloxacin) 500 Mg Tablet 500 Mg PO DAILY06 7 Days Reported Biotin 10,000 Mcg Capsule 10,000 Mcg PO DAILY Multivitamins (Multivitamin) 1 Each Tablet 1 Each PO DAILY Metoprolol Tartrate 25 Mg Tablet 25 Mg PO DAILY Cymbalta (Duloxetine Hcl) 30 Mg Capsule. 1 Cap PO DAILY Aspirin 81 Mg Tab.chew 1 Tab PO DAILY Synthroid (Levothyroxine Sodium) 88 Mcg Tablet 100 Mcg PO DAILY Climara (Estradiol) 1 Each Patch.tdwk Latanoprost 2.5 Ml Drops 1 Drop EACHEYE QHS Vitals/I & O Vital Sign - Last 24 Hours 12/03/18 12/03/18 12/03/18 12/03/18 11:00 12:00 12:03 13:00 Temp 99.6 100.6 99.6 100.6 Pulse 115 120 118 Resp 16 16 18 B/P (MAP) 99/36 (57) 88/38 (55) 99/52 (68) Pulse Ox 97 95 O2 Delivery Room Air Room Air Room Air Room Air 12/03/18 12/03/18 12/03/18 12/03/18 14:00 16:00 16:01 17:26 Temp 101.4 101.0 101.4 101.0 Pulse 118 120 116 Resp 16 16 18 B/P (MAP) 95/47 (63) 101/47 (65) 111/47 (68) Pulse Ox 95 95 O2 Delivery Room Air Room Air Room Air Room Air 12/03/18 12/03/18 12/03/18 12/03/18 18:10 19:00 19:47 20:00 Temp 100.6 100.6 Pulse 116 110 116 Resp 16 16 B/P (MAP) 117/67 (84) 117/52 (73) 127/48 (74) Pulse Ox 96 95 O2 Delivery Room Air Room Air Room Air 12/03/18 12/03/18 12/03/18 12/03/18 20:03 20:22 20:41 21:03 Temp 101.1 100.2 101.1 100.2 Pulse 119 126 118 121 Resp 19 17 B/P (MAP) 126/65 (85) 131/45 (73) 120/52 (74) 120/52 (74) Pulse Ox 93 94 O2 Delivery Room Air Room Air 12/03/18 12/03/18 12/03/18 12/03/18 21:27 21:46 22:00 22:20 Pulse 122 122 119 123 Resp 17 B/P (MAP) 115/43 (67) 107/45 (65) 112/46 (68) 97/40 (59) Pulse Ox 93 O2 Delivery Room Air 12/03/18 12/04/18 12/04/18 12/04/18 23:00 00:00 00:00 00:15 Temp 101.0 99.5 101.0 99.5 Pulse 113 107 113 Resp 18 17 B/P (MAP) 100/45 (63) 110/43 (65) 84/40 (55) Pulse Ox 96 97 O2 Delivery Room Air Room Air Room Air 12/04/18 12/04/18 12/04/18 12/04/18 01:00 02:00 03:00 04:00 Temp 99.3 99.3 Pulse 117 110 107 111 Resp 16 16 15 15 B/P (MAP) 97/44 (61) 104/47 (66) 100/47 (64) 100/46 (64) Pulse Ox 94 96 93 95 O2 Delivery Room Air Room Air Room Air Room Air 12/04/18 12/04/18 12/04/18 12/04/18 04:00 05:00 05:15 06:00 Pulse 108 116 114 Resp 17 16 B/P (MAP) 108/47 (67) 106/45 (65) 105/47 (66) Pulse Ox 91 93 O2 Delivery Room Air Room Air Room Air 12/04/18 08:00 O2 Delivery Room Air Intake and Output 12/03/18 12/03/18 12/04/18 14:59 22:59 06:59 Intake Total 1850 ml 2851 ml 2437 ml Output Total 440 ml 290 ml 645 ml Balance 1410 ml 2561 ml 1792 ml BRIAN DARLING MD Dec 04, 2018 10:37
--- NOTE | 2018-12-04 11:53 | PDOC ---
PULMONARY PROGRESS NOTES Subjective no soa down to 6 mics of levophed making urine Vitals Vital Signs Date Time Temp Pulse Resp B/P (MAP) Pulse Ox O2 Delivery O2 Flow Rate FiO2 12/04/18 08:00 Room Air 12/04/18 06:00 114 16 105/47 (66) 93 12/04/18 04:00 99.3 99.3 General: Alert, No acute distress Lungs: Clear Cardiovascular: S1, S2 Abdomen: Soft Neuro Exam: Alert Extremities: No Edema, Other (jaundice) Skin: Warm, Dry Labs Laboratory Tests Test 12/02/18 23:30 12/03/18 00:45 12/03/18 03:12 12/03/18 08:50 Prothrombin Time 14.9 SEC (11.7-14.0) Prothromb Time International Ratio 1.2 (0.8-1.1) Lactic Acid Level 6.1 mmol/L (0.4-2.0) 3.0 mmol/L (0.4-2.0) Influenza Type A Antigen Negative (NEGATIVE) Influenza Type B Antigen Negative (NEGATIVE) White Blood Count 4.5 x10^3/uL (4.0-11.0) Red Blood Count 3.67 x10^6/uL (3.50-5.40) Hemoglobin 9.6 g/dL (12.0-15.5) Hematocrit 29.8 % (36.0-47.0) Mean Corpuscular Volume 81 fL (79-100) Mean Corpuscular Hemoglobin 26 pg (25-35) Mean Corpuscular Hemoglobin Concent 32 g/dL (31-37) Red Cell Distribution Width 15.0 % (11.5-14.5) Platelet Count 170 x10^3/uL (140-400) Neutrophils (%) (Auto) 96 % (31-73) Lymphocytes (%) (Auto) 0 % (24-48) Monocytes (%) (Auto) 3 % (0-9) Eosinophils (%) (Auto) 1 % (0-3) Basophils (%) (Auto) 0 % (0-3) Neutrophils # (Auto) 4.3 x10^3uL (1.8-7.7) Lymphocytes # (Auto) 0.0 x10^3/uL (1.0-4.8) Monocytes # (Auto) 0.1 x10^3/uL (0.0-1.1) Eosinophils # (Auto) 0.0 x10^3/uL (0.0-0.7) Basophils # (Auto) 0.0 x10^3/uL (0.0-0.2) Segmented Neutrophils % 55 % (35-66) Band Neutrophils % 38 % (0-9) Monocytes % 6 % (0-10) Eosinophils % 1 % (0-5) Toxic Vacuolation Slight Platelet Estimate Adequate (ADEQUATE) Giant Platelets Occ Ovalocytes Occ Sodium Level 137 mmol/L (136-145) Potassium Level 3.8 mmol/L (3.5-5.1) Chloride Level 103 mmol/L (98-107) Carbon Dioxide Level 20 mmol/L (21-32) Anion Gap 14 (6-14) Blood Urea Nitrogen 24 mg/dL (7-20) Creatinine 2.7 mg/dL (0.6-1.0) Estimated GFR (Cockcroft-Gault) 18.1 BUN/Creatinine Ratio 9 (6-20) Glucose Level 233 mg/dL (70-99) Calcium Level 7.1 mg/dL (8.5-10.1) Magnesium Level 1.2 mg/dL (1.8-2.4) 1.7 mg/dL (1.8-2.4) Total Bilirubin 4.6 mg/dL (0.2-1.0) Aspartate Amino Transf (AST/SGOT) 76 U/L (15-37) Alanine Aminotransferase (ALT/SGPT) 90 U/L (14-59) Alkaline Phosphatase 170 U/L (46-116) Creatine Kinase 63 U/L (26-192) Troponin I Quantitative 0.161 ng/mL (0.000-0.055) 0.358 ng/mL (0.000-0.055) Total Protein 3.9 g/dL (6.4-8.2) Albumin 1.7 g/dL (3.4-5.0) Albumin/Globulin Ratio 0.8 (1.0-1.7) Lipase 96 U/L (73-393) Procalcitonin > 125.00 ng/mL (0.00-0.10) Nasal Screen MRSA (PCR) Negative (Negative) Mycoplasma Serology (LAB) Negative (NEGATIVE) Test 12/03/18 14:00 12/03/18 19:20 12/04/18 05:00 Urine Collection Type Unknown Urine Color [place] Urine Clarity Turbid Urine pH 5.0 Urine Specific Carey >=1.030 Urine Protein 30 mg/dL (NEG-TRACE) Urine Glucose (UA) Negative mg/dL (NEG) Urine Ketones (Stick) 15 mg/dL (NEG) Urine Blood Negative (NEG) Urine Nitrite Negative (NEG) Urine Bilirubin Large (NEG) Urine Urobilinogen Dipstick 1.0 mg/dL (0.2 mg/dL) Urine Leukocyte Esterase Negative (NEG) Urine RBC 0 /HPF (0-2) Urine WBC 5-10 /HPF (0-4) Urine Squamous Epithelial Cells Mod /LPF Urine Transitional Epithelial Cells Mod /LPF Urine Amorphous Sediment Present /HPF Urine Bacteria 0 /HPF (0-FEW) Urine Granular Casts Few /HPF Urine Waxy Casts Occasional /HPF Hepatitis A IgM Antibody Nonreactive (Nonreactive) Hepatitis B Surface Antigen Nonreactive (Nonreactive) Hepatitis B Core IgM Antibody Nonreactive (Nonreactive) Hepatitis C IgG Antibody Nonreactive (Nonreactive) White Blood Count 2.1 x10^3/uL (4.0-11.0) Red Blood Count 3.22 x10^6/uL (3.50-5.40) Hemoglobin 8.7 g/dL (12.0-15.5) Hematocrit 26.0 % (36.0-47.0) Mean Corpuscular Volume 81 fL (79-100) Mean Corpuscular Hemoglobin 27 pg (25-35) Mean Corpuscular Hemoglobin Concent 33 g/dL (31-37) Red Cell Distribution Width 15.9 % (11.5-14.5) Platelet Count 100 x10^3/uL (140-400) Neutrophils (%) (Auto) 86 % (31-73) Lymphocytes (%) (Auto) 4 % (24-48) Monocytes (%) (Auto) 5 % (0-9) Eosinophils (%) (Auto) 4 % (0-3) Basophils (%) (Auto) 0 % (0-3) Neutrophils # (Auto) 1.8 x10^3uL (1.8-7.7) Lymphocytes # (Auto) 0.1 x10^3/uL (1.0-4.8) Monocytes # (Auto) 0.1 x10^3/uL (0.0-1.1) Eosinophils # (Auto) 0.1 x10^3/uL (0.0-0.7) Basophils # (Auto) 0.0 x10^3/uL (0.0-0.2) Sodium Level 136 mmol/L (136-145) Potassium Level 4.4 mmol/L (3.5-5.1) Chloride Level 106 mmol/L (98-107) Carbon Dioxide Level 19 mmol/L (21-32) Anion Gap 11 (6-14) Blood Urea Nitrogen 45 mg/dL (7-20) Creatinine 3.0 mg/dL (0.6-1.0) Estimated GFR (Cockcroft-Gault) 16.0 Glucose Level 124 mg/dL (70-99) Calcium Level 6.5 mg/dL (8.5-10.1) Total Bilirubin 12.1 mg/dL (0.2-1.0) Direct Bilirubin 10.8 mg/dL (0.0-0.2) Aspartate Amino Transf (AST/SGOT) 30 U/L (15-37) Alanine Aminotransferase (ALT/SGPT) 54 U/L (14-59) Alkaline Phosphatase 166 U/L (46-116) Total Protein 3.6 g/dL (6.4-8.2) Albumin 1.6 g/dL (3.4-5.0) Laboratory Tests Test 12/03/18 14:00 12/03/18 19:20 12/04/18 05:00 Urine Collection Type Unknown Urine Color [place] Urine Clarity Turbid Urine pH 5.0 Urine Specific Carey >=1.030 Urine Protein 30 mg/dL (NEG-TRACE) Urine Glucose (UA) Negative mg/dL (NEG) Urine Ketones (Stick) 15 mg/dL (NEG) Urine Blood Negative (NEG) Urine Nitrite Negative (NEG) Urine Bilirubin Large (NEG) Urine Urobilinogen Dipstick 1.0 mg/dL (0.2 mg/dL) Urine Leukocyte Esterase Negative (NEG) Urine RBC 0 /HPF (0-2) Urine WBC 5-10 /HPF (0-4) Urine Squamous Epithelial Cells Mod /LPF Urine Transitional Epithelial Cells Mod /LPF Urine Amorphous Sediment Present /HPF Urine Bacteria 0 /HPF (0-FEW) Urine Granular Casts Few /HPF Urine Waxy Casts Occasional /HPF Hepatitis A IgM Antibody Nonreactive (Nonreactive) Hepatitis B Surface Antigen Nonreactive (Nonreactive) Hepatitis B Core IgM Antibody Nonreactive (Nonreactive) Hepatitis C IgG Antibody Nonreactive (Nonreactive) White Blood Count 2.1 x10^3/uL (4.0-11.0) Red Blood Count 3.22 x10^6/uL (3.50-5.40) Hemoglobin 8.7 g/dL (12.0-15.5) Hematocrit 26.0 % (36.0-47.0) Mean Corpuscular Volume 81 fL (79-100) Mean Corpuscular Hemoglobin 27 pg (25-35) Mean Corpuscular Hemoglobin Concent 33 g/dL (31-37) Red Cell Distribution Width 15.9 % (11.5-14.5) Platelet Count 100 x10^3/uL (140-400) Neutrophils (%) (Auto) 86 % (31-73) Lymphocytes (%) (Auto) 4 % (24-48) Monocytes (%) (Auto) 5 % (0-9) Eosinophils (%) (Auto) 4 % (0-3) Basophils (%) (Auto) 0 % (0-3) Neutrophils # (Auto) 1.8 x10^3uL (1.8-7.7) Lymphocytes # (Auto) 0.1 x10^3/uL (1.0-4.8) Monocytes # (Auto) 0.1 x10^3/uL (0.0-1.1) Eosinophils # (Auto) 0.1 x10^3/uL (0.0-0.7) Basophils # (Auto) 0.0 x10^3/uL (0.0-0.2) Sodium Level 136 mmol/L (136-145) Potassium Level 4.4 mmol/L (3.5-5.1) Chloride Level 106 mmol/L (98-107) Carbon Dioxide Level 19 mmol/L (21-32) Anion Gap 11 (6-14) Blood Urea Nitrogen 45 mg/dL (7-20) Creatinine 3.0 mg/dL (0.6-1.0) Estimated GFR (Cockcroft-Gault) 16.0 Glucose Level 124 mg/dL (70-99) Calcium Level 6.5 mg/dL (8.5-10.1) Total Bilirubin 12.1 mg/dL (0.2-1.0) Direct Bilirubin 10.8 mg/dL (0.0-0.2) Aspartate Amino Transf (AST/SGOT) 30 U/L (15-37) Alanine Aminotransferase (ALT/SGPT) 54 U/L (14-59) Alkaline Phosphatase 166 U/L (46-116) Total Protein 3.6 g/dL (6.4-8.2) Albumin 1.6 g/dL (3.4-5.0) Medications Active Scripts Medications Dose Route/Sig Max Daily Dose Days Date Category Nystatin 100,000 Unit/1 Ml Oral.susp 5 Ml SWSW TID 3 12/01/18 Rx Clotrimazole 45 Gm Cream.appl 1 Estefany VG DAILY 3 12/01/18 Rx Levaquin (Levofloxacin) 500 Mg Tablet 500 Mg PO DAILY06 7 12/01/18 Rx Biotin 10,000 Mcg Capsule 10,000 Mcg PO DAILY 10/10/18 Reported Multivitamins (Multivitamin) 1 Each Tablet 1 Each PO DAILY 05/06/18 Reported Metoprolol Tartrate 25 Mg Tablet 25 Mg PO DAILY 04/17/18 Reported Cymbalta (Duloxetine Hcl) 30 Mg Capsule.dr 1 Cap PO DAILY 04/17/18 Reported Aspirin 81 Mg Tab.chew 1 Tab PO DAILY 02/12/17 Reported Synthroid (Levothyroxine Sodium) 88 Mcg Tablet 100 Mcg PO DAILY 02/11/17 Reported Climara (Estradiol) 1 Each Patch.tdwk 02/11/17 Reported Latanoprost 2.5 Ml Drops 1 Drop EACHEYE QHS 02/11/17 Reported Impression . 1. Septic shock. Etiology could be colitis. She also has a component of hypovolemic shock as well. improving 2. Marginal zone lymphoma, status post chemo in the first week of November and has immunosuppression. 3. No significant history of tobacco use. 4. Acute kidney injury related to shock. making urine 5. Lactic acidosis secondary to septic shock, the levels are improving. 6. Severe protein-calorie malnutrition. Albumin level is 1.7. 7. Elevated liver function test, Bili up to 12. ? chemo induced liver failure, no obstruction/ GI consulted 8. Increased troponin level. Follow Cardiology's recommendations. Plan . 1. wean off Levophed. 2. s/p Aggressive volume resuscitation 3. Monitor renal function. 4. Monitor liver function tests./ worse today.Consulted GI/ MRCP today 5. Follow ID recommendation. 6. Broad spectrum antibiotics per ID. 7. Renal consult and recommendation. 8. Cardiology consult and recommendation. 9. Improved nutritional status. 10. Discussed with RN and the entire family. Critical care time 30 minutes. JENIFER HAMLIN MD Dec 04, 2018 11:53
[2018-12-04] MEDS: NOREPINEPHRIN 8MG/250ML PREMIX 250 ML IV PRN (14:24)
[2018-12-04] MEDS: ACETAMINOPHEN 325 MG TABLET. PO PRN (14:40)
[2018-12-04] MEDS: ONDANSETRON PF 4 MG/2 ML VIAL. IV PRN (21:51)
--- NOTE | 2018-12-04 22:44 | CONS ---
DATE OF CONSULTATION: 12/04/2018 REQUESTING PHYSICIAN: Hospitalist. REASON: Renal failure. HISTORY OF PRESENT ILLNESS: This is a 58-year-old female with history of marginal zone lymphoma. She is immunosuppressed following chemotherapy. She is currently admitted with fever to 103, diarrhea, nausea, vomiting, fatigue, swelling and jaundice. The patient is on antibiotics and is also being treated for possible C. difficile colitis with CT scan revealing possible colitis. The patient was hypotensive on presentation and has required vasopressors support. Her initial lactic acid was 6.1 and is currently 3.0. Her BUN and creatinine are currently 45 and 3.0 respectively with CO2 of 19, potassium 4.4, sodium 136. CK is 63. In this setting, Nephrology evaluation requested. PAST MEDICAL HISTORY: 1. Marginal zone lymphoma, on chemotherapy. 2. Immunocompromised host. 3. Hypertension. 4. Atrial fibrillation. 5. Degenerative arthritis. 6. Hypothyroidism. 7. Glaucoma. 8. Bone marrow biopsy. PAST SURGICAL HISTORY: 1. Cholecystectomy. 2. Right foot surgery. 3. Left wrist surgery. 4. Sinus surgery. 5. Hysterectomy. 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 FAMILY HISTORY: Noncontributory. 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 REVIEW OF SYSTEMS: No headache, sinus problem, nasal drainage, epistaxis, change in vision or hearing. No difficulty with swallowing. She has had fever. No cough, sputum production, or hemoptysis. No chest pain, shortness of breath, PND, orthopnea, dyspnea on exertion. No abdominal pain. She has had nausea, vomiting, diarrhea. She has lymphoma. No seizures. She is anxious. PHYSICAL EXAMINATION: GENERAL APPEARANCE: The patient awake, conversant. HEENT: Scleral icterus. Mouth is dry. NECK: No increased JVD. No thyromegaly, masses, or adenopathy. LUNGS: Clear. CARDIAC: Without S3 or rub. ABDOMEN: Obese. Bowel sounds are present. Nontender. EXTREMITIES: Diffuse edema, nonpitting. NEUROLOGIC: Nonfocal, nonlocalized. PSYCHIATRIC: Good attention to detail, appropriate affect. LABORATORY DATA: White count 2.1, hemoglobin 8.7, hematocrit 26%, platelets are 100. Sodium 137, potassium 3.8, chloride 103, CO2 20, BUN 24, creatinine 2.7, GFR is 18, lactic acid 3, total bilirubin 12.1, alkaline phosphatase 166, AST 30, ALT 54, total protein 3.6, albumin 1.6. IMPRESSION: Renal failure, acute - occurring in the setting of immunocompromised host with infectious process leading to septic shock - there is improvement in renal function as per increasing urine output. This is a significant increase in the same. Her hemodynamics have improved. She has worsened level of azotemia anticipate in the setting of acute illness and will likely improve as urine output continues. Her renal failure is likely due to acute tubular necrosis. PLAN: 1. Continue IV fluid administration, vasopressor support. 2. Following trend renal function over time. 3. No acute need for dialysis at this time. As stated above, there are signs of improvement. 4. Certainly have reason at this time for abnormal laboratory presentation, but must keep TTP in mind as well. We will follow. SILVIO MCRAE MD DR: TIERRA/esme JOB#: [id number] / [id number]
[2018-12-05] VITALS (23 sets, daily range): BP systolic 99–152; BP diastolic 40–70
[2018-12-05] MEDS: SYNTHROID 100 MCG PO SCH (05:40)
[2018-12-05] MEDS: HEPARIN for SUB-Q USE 5,000 UNIT/ML VIAL. SQ SCH ×2 (05:41→15:18)
[2018-12-05] MEDS: ONDANSETRON PF 4 MG/2 ML VIAL. IV PRN (05:47)
[2018-12-05 06:12] LABS: ALBUMIN 1.8 g/dL (3.4-5.0); ALBUMIN/GLOBULIN RATIO 0.9 (1.0-1.7); CALCIUM 7.3 mg/dL (8.5-10.1); CREATININE 3.4 mg/dL (0.6-1.0); GFR 13.9; POTASSIUM 3.8 mmol/L (3.5-5.1); TOTAL PROTEIN 3.8 g/dL (6.4-8.2)
--- NOTE | 2018-12-05 07:52 | PDOC ---
Infectious Disease Note Subjective Subjective pt is awake, feeling better ROS ROS no n/v/fever/abd pain no diarrhea Vital Sign Vital Signs Vital Signs Date Time Temp Pulse Resp B/P (MAP) Pulse Ox O2 Delivery O2 Flow Rate FiO2 12/05/18 06:00 103 16 118/48 (71) 94 Room Air 12/05/18 04:00 98.7 98.7 Physical Exam PHYSICAL EXAM GENERAL: Propped up in bed, awake, HEENT: Oral cavity clear, no thrush or lesions NECK: Supple, no JVP, no lymphadenopathy. LUNGS: Clear. HEART: S1, S2 regular. ABDOMEN: Obese, soft and nontender EXTREMITIES: No edema or cyanosis. SKIN: Maculopapular rash all over the body GRID TRIMMER: Alert, responds appropriately Port-A-Cath without signs of any complications . Labs Lab Laboratory Tests Test 12/04/18 16:05 12/05/18 05:15 Ionized Calcium 0.97 mmol/L (1.13-1.32) Sodium Level 138 mmol/L (136-145) Potassium Level 3.8 mmol/L (3.5-5.1) Chloride Level 106 mmol/L (98-107) Carbon Dioxide Level 20 mmol/L (21-32) Anion Gap 12 (6-14) Blood Urea Nitrogen 53 mg/dL (7-20) Creatinine 3.4 mg/dL (0.6-1.0) Estimated GFR (Cockcroft-Gault) 13.9 BUN/Creatinine Ratio 16 (6-20) Glucose Level 94 mg/dL (70-99) Calcium Level 7.3 mg/dL (8.5-10.1) Total Bilirubin 9.0 mg/dL (0.2-1.0) Aspartate Amino Transf (AST/SGOT) 33 U/L (15-37) Alanine Aminotransferase (ALT/SGPT) 50 U/L (14-59) Alkaline Phosphatase 219 U/L (46-116) Total Protein 3.8 g/dL (6.4-8.2) Albumin 1.8 g/dL (3.4-5.0) Albumin/Globulin Ratio 0.9 (1.0-1.7) Micro last adm culture neg all culture neg Objective Assessment Fever Lactic acidosis Rash ? from [place] Dehydration ELISE Hypotension on vasopressors Marginal zone lymphoma Hypotension ? Hepato renal sy Plan Plan of Care dapto, meropenem and cipro and micafungin workup d/w pt and in detail fluids supportive care check stool , pcr neg ELVIS CARMONA MD Dec 05, 2018 07:52
[2018-12-05 08:06] LABS: BASO % 1 % (0-3); EOS # 0.1 x10^3/uL (0.0-0.7); EOS % 8 % (0-3); HEMOGLOBIN 7.8 g/dL (12.0-15.5); LYMPH # 0.1 x10^3/uL (1.0-4.8); LYMPH % 6 % (24-48); MEAN CORPUSCULAR HEMOGLOBIN 27 pg (25-35); MEAN CORPUSCULAR HGB CONC 34 g/dL (31-37); MEAN CORPUSCULAR VOLUME 80 fL (79-100); MONO # 0.1 x10^3/uL (0.0-1.1); MONO % 6 % (0-9); NEUT # 0.7 x10^3uL (1.8-7.7); NEUT % 79 % (31-73); PLATELET COUNT 66 x10^3/uL (140-400); RED BLOOD COUNT 2.89 x10^6/uL (3.50-5.40); RED CELL DISTRIBUTION WIDTH 16.2 % (11.5-14.5); RETIC COUNT 2.7 % (0.5-2.5)
[2018-12-05 08:10] LABS: WHITE BLOOD COUNT 0.9 x10^3/uL (4.0-11.0)
--- NOTE | 2018-12-05 08:43 | PDOC ---
PROGRESS NOTES Subjective Subjective HPI - f/u of Septic Shock ROS - no fever, off vasopressors Objective Objective Vital Signs Date Time Temp Pulse Resp B/P (MAP) Pulse Ox O2 Delivery O2 Flow Rate FiO2 12/05/18 06:00 103 16 118/48 (71) 94 Room Air 12/05/18 04:00 98.7 98.7 Intake and Output 12/05/18 07:00 Intake Total 3020 ml Output Total 3425 ml Balance -405 ml Intake Oral 700 ml IV Total 2320 ml Output Urine Total 3425 ml # Bowel Movements 3 Physical Exam Heart: Normal S1, Normal S2 General: Alert, Oriented X3, No acute distress Lungs: Clear to auscultation Neuro: Normal speech Psych/Mental Status: Mental status NL Assessment Assessment Assessment and Plan: 58-year-old female with marginal zone lymphoma who has completed bendamustine and rituximab C1, admitted for septic shock 1. Septic Shock, hypotension ,Fever: ID is involved, appreciate multidisciplinary assistance, on broad spec antimicrobials, I d/w Dr Hernandez. I d/w RN. Off vasopressors. Now afebrile. 2. diarrhea, poss colitis on ct? GI consulted. 3. Elevated bili: likely due to septic shock. Improving. 4. Marginal zone lymphoma: Chemotherapy on hold. s/p 1 cycle bendmustine and rituximab. Responding well, improved splenomegaly. Plan dose reduction of bendamustine with C2. Defer C2 till she recovers well. 5. Acute renal failure likely from septic shock, nephrology consulted. 6. Neutropenia due to sepsis/chemo -, Start granix 12/05/18 as WBC worse at 0.9. Comment Review of Relevant I have reviewed the following items kike (where applicable) has been applied. Labs Laboratory Tests Test 12/03/18 08:50 12/03/18 14:00 12/03/18 19:20 12/04/18 05:00 Magnesium Level 1.7 mg/dL (1.8-2.4) Troponin I Quantitative 0.358 ng/mL (0.000-0.055) Mycoplasma Serology (LAB) Negative (NEGATIVE) Urine Collection Type Unknown Urine Color [place] Urine Clarity Turbid Urine pH 5.0 Urine Specific [place] >=1.030 Urine Protein 30 mg/dL (NEG-TRACE) Urine Glucose (UA) Negative mg/dL (NEG) Urine Ketones (Stick) 15 mg/dL (NEG) Urine Blood Negative (NEG) Urine Nitrite Negative (NEG) Urine Bilirubin Large (NEG) Urine Urobilinogen Dipstick 1.0 mg/dL (0.2 mg/dL) Urine Leukocyte Esterase Negative (NEG) Urine RBC 0 /HPF (0-2) Urine WBC 5-10 /HPF (0-4) Urine Squamous Epithelial Cells Mod /LPF Urine Transitional Epithelial Cells Mod /LPF Urine Amorphous Sediment Present /HPF Urine Bacteria 0 /HPF (0-FEW) Urine Granular Casts Few /HPF Urine Waxy Casts Occasional /HPF Hepatitis A IgM Antibody Nonreactive (Nonreactive) Hepatitis B Surface Antigen Nonreactive (Nonreactive) Hepatitis B Core IgM Antibody Nonreactive (Nonreactive) Hepatitis C IgG Antibody Nonreactive (Nonreactive) White Blood Count 2.1 x10^3/uL (4.0-11.0) Red Blood Count 3.22 x10^6/uL (3.50-5.40) Hemoglobin 8.7 g/dL (12.0-15.5) Hematocrit 26.0 % (36.0-47.0) Mean Corpuscular Volume 81 fL (79-100) Mean Corpuscular Hemoglobin 27 pg (25-35) Mean Corpuscular Hemoglobin Concent 33 g/dL (31-37) Red Cell Distribution Width 15.9 % (11.5-14.5) Platelet Count 100 x10^3/uL (140-400) Neutrophils (%) (Auto) 86 % (31-73) Lymphocytes (%) (Auto) 4 % (24-48) Monocytes (%) (Auto) 5 % (0-9) Eosinophils (%) (Auto) 4 % (0-3) Basophils (%) (Auto) 0 % (0-3) Neutrophils # (Auto) 1.8 x10^3uL (1.8-7.7) Lymphocytes # (Auto) 0.1 x10^3/uL (1.0-4.8) Monocytes # (Auto) 0.1 x10^3/uL (0.0-1.1) Eosinophils # (Auto) 0.1 x10^3/uL (0.0-0.7) Basophils # (Auto) 0.0 x10^3/uL (0.0-0.2) Sodium Level 136 mmol/L (136-145) Potassium Level 4.4 mmol/L (3.5-5.1) Chloride Level 106 mmol/L (98-107) Carbon Dioxide Level 19 mmol/L (21-32) Anion Gap 11 (6-14) Blood Urea Nitrogen 45 mg/dL (7-20) Creatinine 3.0 mg/dL (0.6-1.0) Estimated GFR (Cockcroft-Gault) 16.0 Glucose Level 124 mg/dL (70-99) Calcium Level 6.5 mg/dL (8.5-10.1) Total Bilirubin 12.1 mg/dL (0.2-1.0) Direct Bilirubin 10.8 mg/dL (0.0-0.2) Aspartate Amino Transf (AST/SGOT) 30 U/L (15-37) Alanine Aminotransferase (ALT/SGPT) 54 U/L (14-59) Alkaline Phosphatase 166 U/L (46-116) Total Protein 3.6 g/dL (6.4-8.2) Albumin 1.6 g/dL (3.4-5.0) Test 12/04/18 11:00 12/04/18 16:05 12/05/18 05:15 Special Test - Miscellaneous See separate report Ionized Calcium 0.97 mmol/L (1.13-1.32) White Blood Count 0.9 x10^3/uL (4.0-11.0) Red Blood Count 2.89 x10^6/uL (3.50-5.40) Hemoglobin 7.8 g/dL (12.0-15.5) Hematocrit 23.0 % (36.0-47.0) Mean Corpuscular Volume 80 fL (79-100) Mean Corpuscular Hemoglobin 27 pg (25-35) Mean Corpuscular Hemoglobin Concent 34 g/dL (31-37) Red Cell Distribution Width 16.2 % (11.5-14.5) Platelet Count 66 x10^3/uL (140-400) Neutrophils (%) (Auto) 79 % (31-73) Lymphocytes (%) (Auto) 6 % (24-48) Monocytes (%) (Auto) 6 % (0-9) Eosinophils (%) (Auto) 8 % (0-3) Basophils (%) (Auto) 1 % (0-3) Neutrophils # (Auto) 0.7 x10^3uL (1.8-7.7) Lymphocytes # (Auto) 0.1 x10^3/uL (1.0-4.8) Monocytes # (Auto) 0.1 x10^3/uL (0.0-1.1) Eosinophils # (Auto) 0.1 x10^3/uL (0.0-0.7) Basophils # (Auto) 0.0 x10^3/uL (0.0-0.2) Reticulocyte Count (auto) 2.7 % (0.5-2.5) Sodium Level 138 mmol/L (136-145) Potassium Level 3.8 mmol/L (3.5-5.1) Chloride Level 106 mmol/L (98-107) Carbon Dioxide Level 20 mmol/L (21-32) Anion Gap 12 (6-14) Blood Urea Nitrogen 53 mg/dL (7-20) Creatinine 3.4 mg/dL (0.6-1.0) Estimated GFR (Cockcroft-Gault) 13.9 BUN/Creatinine Ratio 16 (6-20) Glucose Level 94 mg/dL (70-99) Calcium Level 7.3 mg/dL (8.5-10.1) Total Bilirubin 9.0 mg/dL (0.2-1.0) Aspartate Amino Transf (AST/SGOT) 33 U/L (15-37) Alanine Aminotransferase (ALT/SGPT) 50 U/L (14-59) Alkaline Phosphatase 219 U/L (46-116) Total Protein 3.8 g/dL (6.4-8.2) Albumin 1.8 g/dL (3.4-5.0) Albumin/Globulin Ratio 0.9 (1.0-1.7) Laboratory Tests Test 12/04/18 11:00 12/04/18 16:05 12/05/18 05:15 Special Test - Miscellaneous See separate report Ionized Calcium 0.97 mmol/L (1.13-1.32) White Blood Count 0.9 x10^3/uL (4.0-11.0) Red Blood Count 2.89 x10^6/uL (3.50-5.40) Hemoglobin 7.8 g/dL (12.0-15.5) Hematocrit 23.0 % (36.0-47.0) Mean Corpuscular Volume 80 fL (79-100) Mean Corpuscular Hemoglobin 27 pg (25-35) Mean Corpuscular Hemoglobin Concent 34 g/dL (31-37) Red Cell Distribution Width 16.2 % (11.5-14.5) Platelet Count 66 x10^3/uL (140-400) Neutrophils (%) (Auto) 79 % (31-73) Lymphocytes (%) (Auto) 6 % (24-48) Monocytes (%) (Auto) 6 % (0-9) Eosinophils (%) (Auto) 8 % (0-3) Basophils (%) (Auto) 1 % (0-3) Neutrophils # (Auto) 0.7 x10^3uL (1.8-7.7) Lymphocytes # (Auto) 0.1 x10^3/uL (1.0-4.8) Monocytes # (Auto) 0.1 x10^3/uL (0.0-1.1) Eosinophils # (Auto) 0.1 x10^3/uL (0.0-0.7) Basophils # (Auto) 0.0 x10^3/uL (0.0-0.2) Reticulocyte Count (auto) 2.7 % (0.5-2.5) Sodium Level 138 mmol/L (136-145) Potassium Level 3.8 mmol/L (3.5-5.1) Chloride Level 106 mmol/L (98-107) Carbon Dioxide Level 20 mmol/L (21-32) Anion Gap 12 (6-14) Blood Urea Nitrogen 53 mg/dL (7-20) Creatinine 3.4 mg/dL (0.6-1.0) Estimated GFR (Cockcroft-Gault) 13.9 BUN/Creatinine Ratio 16 (6-20) Glucose Level 94 mg/dL (70-99) Calcium Level 7.3 mg/dL (8.5-10.1) Total Bilirubin 9.0 mg/dL (0.2-1.0) Aspartate Amino Transf (AST/SGOT) 33 U/L (15-37) Alanine Aminotransferase (ALT/SGPT) 50 U/L (14-59) Alkaline Phosphatase 219 U/L (46-116) Total Protein 3.8 g/dL (6.4-8.2) Albumin 1.8 g/dL (3.4-5.0) Albumin/Globulin Ratio 0.9 (1.0-1.7) Microbiology 12/03/18 Blood Culture - Preliminary, Resulted NO GROWTH AFTER 2 DAYS 12/03/18 Urine Culture - Final, Complete 12/03/18 Urine Culture Result 1 (DANIAL) - Final, Complete Medications Current Medications Sodium Chloride 1,000 ml @ 1,000 mls/hr 1X ONCE IV Last administered on at 23:50; Start 12/02/18 at 23:30; Stop 12/03/18 at 00:29; Status DC Sodium Chloride 1,000 ml @ 1,000 mls/hr 1X ONCE IV Last administered on at 00:08; Start 12/02/18 at 23:30; Stop 12/03/18 at 00:29; Status DC Meropenem 1 gm/ Sodium Chloride 100 ml @ 200 mls/hr Q8HRS IV Last administered on 12/02/18at 23:51; Start 12/03/18 at 00:00; Stop 12/03/18 at 03:21 ; Status DC Vancomycin HCl (Vanco Per Pharmacy) 1 each PRN DAILY PRN MC SEE COMMENTS Last administered on 12/03/18at 03:45; Start 12/02/18 at 23:30; Stop 12/03/18 at 07:49 ; Status DC Vancomycin HCl 2 gm/Sodium Chloride 500 ml @ 250 mls/hr 1X ONCE IV Last administered on 12/03/18at 00:12; Start 12/03/18 at 00:30; Stop 12/03/18 at 02:29 ; Status DC Iohexol (Omnipaque 300 Mg/ml) 75 ml 1X ONCE IV Last administered on 12/03/18at 00:41; Start 12/03/18 at 01:00; Stop 12/03/18 at 01:01; Status DC Info (CONTRAST GIVEN -- Rx MONITORING) 1 each PRN DAILY PRN MC SEE COMMENTS; Start 12/03/18 at 00:30; Stop 12/05/18 at 00:29; Status DC Sodium Chloride 1,000 ml @ 1,000 mls/hr 1X ONCE IV Last administered on at 01:08; Start 12/03/18 at 01:00; Stop 12/03/18 at 01:59; Status DC Norepinephrine Bitartrate 250 ml @ 0 mls/hr 1X ONCE IV Last administered on at 01:24; Start 12/03/18 at 01:30; Stop 12/03/18 at 01:31; Status DC Diphenhydramine HCl (Benadryl) 25 mg 1X ONCE IVP Last administered on at 02:01; Start 12/03/18 at 02:00; Stop 12/03/18 at 02:01; Status DC Magnesium Sulfate/ Dextrose 100 ml @ 100 mls/hr 1X ONCE IV Last administered on 12/03/18at 02:08; Start 12/03/18 at 02:00; Stop 12/03/18 at 02:59; Status DC Aspirin (Children'S Aspirin) 324 mg 1X ONCE PO Last administered on 12/03/18at 01:59; Start 12/03/18 at 02:00; Stop 12/03/18 at 02:01; Status DC Sodium Chloride 1,000 ml @ 175 mls/hr Q5H43M IV Last administered on at 04:23; Start 12/03/18 at 03:30; Stop 12/04/18 at 03:29; Status DC Meropenem 1 gm/ Sodium Chloride 100 ml @ 200 mls/hr Q12HR IV Last administered on 12/04/18at 20:34; Start 12/03/18 at 09:00 Vancomycin HCl 1.75 gm/Sodium Chloride 500 ml @ 250 mls/hr Q24H IV ; Start at 00:00; Stop 12/04/18 at 00:00; Status DC Vancomycin HCl (Vancomycin Trough Level) 1 each 1X ONCE MC ; Start 12/04/18 at 23:30; Stop 12/04/18 at 23:30; Status DC Diphenhydramine HCl (Benadryl) 25 mg PRN Q6HRS PRN IVP ITCHING; Start 12/03/18 at 04:45 Iohexol (Omnipaque 300 Mg/ml) 100 ml STK-MED ONCE .ROUTE ; Start 12/03/18 at 06: 01; Stop 12/03/18 at 06:02; Status DC Vancomycin HCl (Vancomycin Oral Solution) 125 mg [id number] PO Last administered on 12/04/18 20:34; Start 12/03/18 at 09:00 Acetaminophen (Tylenol) 650 mg PRN Q6HRS PRN PO Headaches, Temp > 101.5' Last administered on 12/04/18at 14:40; Start 12/03/18 at 07:45 Lorazepam (Ativan) 0.5 mg PRN Q6HRS PRN IV ANXIETY / AGITATION; Start 12/03/18 at 07:45 Ondansetron HCl (Zofran) 4 mg PRN Q6HRS PRN IV NAUSEA/VOMITING Last administered on 12/05/18 05:47; Start 12/03/18 at 07:45 Info (Icu Electrolyte Protocol) 1 ea DAILY MC Last administered on 12/03/18 09 :00; Start 12/03/18 at 09:00 Heparin Sodium (Porcine) (Heparin Sodium) 5,000 unit Q8HRS SQ Last administered on 12/05/18 05:41; Start 12/03/18 at 08:00 Sodium Chloride (Normal Saline Flush) 3 ml QSHIFT PRN IV AFTER MEDS AND BLOOD DRAWS; Start 12/03/18 at 07:45 Oxycodone/ Acetaminophen (Percocet 5/325) 1 tab PRN Q4HRS PRN PO MILD PAIN, 1ST CHOICE; Start 12/03/18 at 07:45 Morphine Sulfate (Morphine Sulfate) 2 mg PRN Q1HR PRN IV PAIN; Start 12/03/18 at 07:45 Aspirin (Children'S Aspirin) 81 mg DAILY PO Last administered on 12/04/18 09: 33; Start 12/03/18 at 09:00 Clotrimazole (Mycelex-7) 1 estefany DAILY VG Last administered on 12/04/18 09:36; Start 12/03/18 at 09:00; Stop 12/10/18 at 08:59 Duloxetine HCl (Cymbalta) 30 mg DAILY PO Last administered on 12/04/18 09:33; Start 12/03/18 at 09:00 Levothyroxine Sodium (Synthroid) 100 mcg DAILY06 PO ; Start 12/03/18 at 08:00; Status Cancel Nystatin (Nystatin Oral Susp) 5 ml TID SWSW ; Start 12/03/18 at 09:00; Stop at 10:21; Status DC Ciprofloxacin/ Dextrose 200 ml @ 200 mls/hr Q12HR IV Last administered on 12/04at 20:34; Start 12/03/18 at 09:00 Daptomycin 460 mg/ Sodium Chloride 50 ml @ 100 mls/hr Q24H IV Last administered on 12/04/18 09:34; Start 12/03/18 at 09:00 Micafungin Sodium 100 mg/Dextrose 100 ml @ 100 mls/hr Q24H IV Last administered on 12/04/18 09:06; Start 12/03/18 at 09:00 Non-Formulary Medication 1 ea DAILY06 PO Last administered on 12/05/18 05:40; Start 12/03/18 at 09:30 Magnesium Sulfate 50 ml @ 25 mls/hr 1X ONCE IV Last administered on 12/03/18 11:09; Start 12/03/18 at 10:00; Stop 12/03/18 at 11:59; Status DC Norepinephrine Bitartrate 250 ml @ 1.875 mls/ hr CONT PRN IV SEE I/O RECORD Last administered on 12/04/18 14:24; Start 12/03/18 at 11:15 Sodium Chloride 1,000 ml @ 999 mls/hr Q1H1M IV Last administered on 12/03/18 14:24; Start 12/03/18 at 13:45; Stop 12/03/18 at 14:32; Status DC Vasopressin 40 unit/Dextrose 102 ml @ 6 mls/hr CONT PRN IV SEE I/O RECORD Last administered on 12/04/18at 09:01; Start 12/03/18 at 15:00 Sodium Chloride 1,000 ml @ 100 mls/hr Q10H IV Last administered on 12/04/18at 23:25; Start 12/04/18 at 20:45 Tbo-Filgrastim (Granix) 480 mcg QHS SQ ; Start 12/05/18 at 21:00; Status UNV Active Scripts Active Nystatin 100,000 Unit/1 Ml Oral.susp 5 Ml SWSW TID 3 Days Clotrimazole 45 Gm Cream.appl 1 Estefany VG DAILY 3 Days Levaquin (Levofloxacin) 500 Mg Tablet 500 Mg PO DAILY06 7 Days Reported Biotin 10,000 Mcg Capsule 10,000 Mcg PO DAILY Multivitamins (Multivitamin) 1 Each Tablet 1 Each PO DAILY Metoprolol Tartrate 25 Mg Tablet 25 Mg PO DAILY Cymbalta (Duloxetine Hcl) 30 Mg Capsule.dr 1 Cap PO DAILY Aspirin 81 Mg Tab.chew 1 Tab PO DAILY Synthroid (Levothyroxine Sodium) 88 Mcg Tablet 100 Mcg PO DAILY [place]ara (Estradiol) 1 Each Patch.tdwk Latanoprost 2.5 Ml Drops 1 Drop [facility] Vitals/I & O Vital Sign - Last 24 Hours 12/04/18 12/04/18 12/04/18 12/04/18 09:00 10:00 12:00 12:00 Temp 98.5 98.5 Pulse 112 102 106 Resp 18 16 16 B/P (MAP) 119/52 (74) 122/57 (78) 113/49 (70) Pulse Ox 95 98 96 O2 Delivery Room Air Room Air Room Air Room Air 12/04/18 12/04/18 12/04/18 12/04/18 14:00 15:00 16:00 16:00 Temp 98.1 98.1 Pulse 96 100 100 Resp 15 18 16 B/P (MAP) 116/50 (72) 105/47 (66) 124/58 (80) Pulse Ox 99 97 97 O2 Delivery Room Air Room Air Room Air Room Air 12/04/18 12/04/18 12/04/18 12/04/18 17:00 18:00 19:00 19:15 Pulse 101 99 106 106 Resp 18 14 17 B/P (MAP) 124/58 (80) 129/58 (81) 140/61 (87) 137/51 (79) Pulse Ox 97 95 96 O2 Delivery Room Air Room Air Room Air 12/04/18 12/04/18 12/04/18 12/04/18 19:45 20:00 20:00 20:25 Temp 97.9 97.9 Pulse 106 108 104 Resp 17 B/P (MAP) 139/50 (79) 133/51 (78) 138/48 (78) Pulse Ox 95 O2 Delivery Room Air Room Air 12/04/18 12/04/18 12/04/18 12/04/18 21:00 22:00 23:00 23:55 Pulse 114 112 108 Resp 19 16 15 B/P (MAP) 136/49 (78) 114/46 (68) 119/49 (72) Pulse Ox 97 96 97 O2 Delivery Room Air Room Air Room Air Room Air 12/05/18 12/05/18 12/05/18 12/05/18 00:00 01:00 02:00 03:00 Temp 98.7 98.7 Pulse 107 106 106 106 Resp 16 13 14 14 B/P (MAP) 114/42 (66) 99/46 (63) 110/44 (66) 107/70 (82) Pulse Ox 96 93 94 91 O2 Delivery Room Air Room Air Room Air Room Air 12/05/18 12/05/18 12/05/18 12/05/18 04:00 04:00 05:00 06:00 Temp 98.7 98.7 Pulse 113 102 103 Resp 13 16 16 B/P (MAP) 112/44 (66) 119/40 (66) 118/48 (71) Pulse Ox 95 94 94 O2 Delivery Room Air Room Air Room Air Room Air Intake and Output 12/04/18 12/04/18 12/05/18 15:00 23:00 07:00 Intake Total 450 ml 920 ml 1650 ml Output Total 700 ml 1335 ml 1390 ml Balance -250 ml -415 ml 260 ml SANGEETA HERNANDEZ MD Dec 05, 2018 08:43
[2018-12-05] MEDS: MEROPENEM 1 GM in IV NORMAL SALINE 100ML 100 ML IV SCH ×2 (08:57→20:50)
[2018-12-05] MEDS: VANCOMYCIN 125 MG/2.5 ML ORAL SOLUTION. PO SCH (09:00)
[2018-12-05] MEDS: CLOTRIMAZOLE 1% VAGINAL CREAM 45GM TUBE. VG SCH (09:00)
[2018-12-05] MEDS: ELECTROLYTE (ICU) PROTOCOL. MC SCH (09:00)
--- NOTE | 2018-12-05 09:40 | PDOC ---
Subjective: Subjective: Feels the same. Her friend says her bilirubin is better because she sat in the sunlight yesterday. Objective: Objective: MRCP ordered yesterday morning, still not done. D/w Dr. Hernandez - stool studies through [facility] all neg. Vital Signs: Vital Signs Date Time Temp Pulse Resp B/P (MAP) Pulse Ox O2 Delivery O2 Flow Rate FiO2 12/05/18 08:00 Room Air 12/05/18 06:00 103 16 118/48 (71) 94 12/05/18 04:00 98.7 98.7 Labs: Laboratory Tests Test 12/04/18 11:00 12/04/18 16:05 12/05/18 05:15 Special Test - Miscellaneous See separate report Ionized Calcium 0.97 mmol/L White Blood Count 0.9 x10^3/uL Red Blood Count 2.89 x10^6/uL Hemoglobin 7.8 g/dL Hematocrit 23.0 % Mean Corpuscular Volume 80 fL Mean Corpuscular Hemoglobin 27 pg Mean Corpuscular Hemoglobin Concent 34 g/dL Red Cell Distribution Width 16.2 % Platelet Count 66 x10^3/uL Neutrophils (%) (Auto) 79 % Lymphocytes (%) (Auto) 6 % Monocytes (%) (Auto) 6 % Eosinophils (%) (Auto) 8 % Basophils (%) (Auto) 1 % Neutrophils # (Auto) 0.7 x10^3uL Lymphocytes # (Auto) 0.1 x10^3/uL Monocytes # (Auto) 0.1 x10^3/uL Eosinophils # (Auto) 0.1 x10^3/uL Basophils # (Auto) 0.0 x10^3/uL Reticulocyte Count (auto) 2.7 % Sodium Level 138 mmol/L Potassium Level 3.8 mmol/L Chloride Level 106 mmol/L Carbon Dioxide Level 20 mmol/L Anion Gap 12 Blood Urea Nitrogen 53 mg/dL Creatinine 3.4 mg/dL Estimated GFR (Cockcroft-Gault) 13.9 BUN/Creatinine Ratio 16 Glucose Level 94 mg/dL Calcium Level 7.3 mg/dL Total Bilirubin 9.0 mg/dL Aspartate Amino Transf (AST/SGOT) 33 U/L Alanine Aminotransferase (ALT/SGPT) 50 U/L Alkaline Phosphatase 219 U/L Lactate Dehydrogenase 373 U/L Total Protein 3.8 g/dL Albumin 1.8 g/dL Albumin/Globulin Ratio 0.9 \\\ PE: GEN: NAD LUNGS: CTAB HEART: RRR ABD: vague LLQ discomfort w/ deep palpation NEURO/PSYCH: A & O 3, depressed A/P: Hyperbilirubinemia (better), elevated Alk Phos, hepatic steatosis, s/p steven Marginal zone lymphoma (recent chemo) Neutropenia/pancytopenia, ELISE -- Bili from 12 to 9, AP 219. Await MRCP. ALEXANDER ROSS Dec 05, 2018 09:40
--- NOTE | 2018-12-05 10:13 | PDOC ---
PROGRESS NOTES Chief Complaint Chief Complaint on IV antibiotics for neutropenic fever last chemotherapy was November 16 2018 currently admitted icu with fever to 103 POA , diarrhea, nausea, vomiting, fatigue, swelling and jaundice. treated for possible C. difficile colitis with CT scan revealing possible colitis. History of Present Illness History of Present Illness Assessment/Plan Hypovolemic shock vs septic shock, etiology most likely from GI source Lactic acidosis secondary to septic shock extreme morbid obesity Bandemia Splenomegaly. Acute renal failure, vasomotor cr up 3.0 No left-sided hydronephrosis. Urinary bladder is decompressed. No right-sided hydronephrosis. Severe dehydration Transaminitis secondary to hypoperfusion, shock liver would have higher transaminases ,continue to monitor. marginal zone lymphoma History of atrial fibrillation History of essential hypertension severe protein-caloric malnutrition Elevated troponin due to septic shock. Plan: MRCP r/o retained stone. 12/05 iv dapto, meropenem and cipro and micafungin sepsis protocol fluid and volume resuscitation prn albumin nephrology consult continue levophed prn prn pressor support DVT prophylaxis: heparin ionized ca neutropenic precautions 12/04 poor appetite lunch tray not touched, nephrology consulted, flat affect 12/05 mrcp pending report oscal bid 35 MIN CC TIME Vitals Vitals Vital Signs Date Time Temp Pulse Resp B/P (MAP) Pulse Ox O2 Delivery O2 Flow Rate FiO2 12/05/18 08:00 Room Air 12/05/18 06:00 103 16 118/48 (71) 94 12/05/18 04:00 98.7 98.7 Physical Exam Physical Exam GENERAL: Propped up in bed, awake, HEENT: Oral cavity clear, no thrush or lesions NECK: Supple, no JVP, no lymphadenopathy. LUNGS: Clear. HEART: S1, S2 regular. ABDOMEN: Obese, soft and nontender EXTREMITIES: No edema or cyanosis. SKIN: Maculopapular rash COLOR TECHNICIAN: Alert, responds appropriately Port-A-Cath without signs of any complications . General: Alert, Oriented X3, Cooperative, No acute distress Heart: Regular rate, Normal S1, Normal S2 Lungs: Clear Abdomen: Normal bowel sounds, Soft, No tenderness Extremities: No clubbing, No cyanosis, Other (1+ bilateral LE pitting edema) Skin: No breakdown, No significant lesion Labs LABS Laboratory Tests Test 12/04/18 11:00 12/04/18 16:05 12/05/18 05:15 Special Test - Miscellaneous See separate report Ionized Calcium 0.97 mmol/L (1.13-1.32) White Blood Count 0.9 x10^3/uL (4.0-11.0) Red Blood Count 2.89 x10^6/uL (3.50-5.40) Hemoglobin 7.8 g/dL (12.0-15.5) Hematocrit 23.0 % (36.0-47.0) Mean Corpuscular Volume 80 fL (79-100) Mean Corpuscular Hemoglobin 27 pg (25-35) Mean Corpuscular Hemoglobin Concent 34 g/dL (31-37) Red Cell Distribution Width 16.2 % (11.5-14.5) Platelet Count 66 x10^3/uL (140-400) Neutrophils (%) (Auto) 79 % (31-73) Lymphocytes (%) (Auto) 6 % (24-48) Monocytes (%) (Auto) 6 % (0-9) Eosinophils (%) (Auto) 8 % (0-3) Basophils (%) (Auto) 1 % (0-3) Neutrophils # (Auto) 0.7 x10^3uL (1.8-7.7) Lymphocytes # (Auto) 0.1 x10^3/uL (1.0-4.8) Monocytes # (Auto) 0.1 x10^3/uL (0.0-1.1) Eosinophils # (Auto) 0.1 x10^3/uL (0.0-0.7) Basophils # (Auto) 0.0 x10^3/uL (0.0-0.2) Reticulocyte Count (auto) 2.7 % (0.5-2.5) Sodium Level 138 mmol/L (136-145) Potassium Level 3.8 mmol/L (3.5-5.1) Chloride Level 106 mmol/L (98-107) Carbon Dioxide Level 20 mmol/L (21-32) Anion Gap 12 (6-14) Blood Urea Nitrogen 53 mg/dL (7-20) Creatinine 3.4 mg/dL (0.6-1.0) Estimated GFR (Cockcroft-Gault) 13.9 BUN/Creatinine Ratio 16 (6-20) Glucose Level 94 mg/dL (70-99) Calcium Level 7.3 mg/dL (8.5-10.1) Total Bilirubin 9.0 mg/dL (0.2-1.0) Aspartate Amino Transf (AST/SGOT) 33 U/L (15-37) Alanine Aminotransferase (ALT/SGPT) 50 U/L (14-59) Alkaline Phosphatase 219 U/L (46-116) Lactate Dehydrogenase 373 U/L (81-234) Total Protein 3.8 g/dL (6.4-8.2) Albumin 1.8 g/dL (3.4-5.0) Albumin/Globulin Ratio 0.9 (1.0-1.7) Comment Review of Relevant I have reviewed the following items kike (where applicable) has been applied. Labs Laboratory Tests Test 12/03/18 14:00 12/03/18 19:20 12/04/18 05:00 12/04/18 11:00 Urine Collection Type Unknown Urine Color [place] Urine Clarity Turbid Urine pH 5.0 Urine Specific [place] >=1.030 Urine Protein 30 mg/dL (NEG-TRACE) Urine Glucose (UA) Negative mg/dL (NEG) Urine Ketones (Stick) 15 mg/dL (NEG) Urine Blood Negative (NEG) Urine Nitrite Negative (NEG) Urine Bilirubin Large (NEG) Urine Urobilinogen Dipstick 1.0 mg/dL (0.2 mg/dL) Urine Leukocyte Esterase Negative (NEG) Urine RBC 0 /HPF (0-2) Urine WBC 5-10 /HPF (0-4) Urine Squamous Epithelial Cells Mod /LPF Urine Transitional Epithelial Cells Mod /LPF Urine Amorphous Sediment Present /HPF Urine Bacteria 0 /HPF (0-FEW) Urine Granular Casts Few /HPF Urine Waxy Casts Occasional /HPF Hepatitis A IgM Antibody Nonreactive (Nonreactive) Hepatitis B Surface Antigen Nonreactive (Nonreactive) Hepatitis B Core IgM Antibody Nonreactive (Nonreactive) Hepatitis C IgG Antibody Nonreactive (Nonreactive) White Blood Count 2.1 x10^3/uL (4.0-11.0) Red Blood Count 3.22 x10^6/uL (3.50-5.40) Hemoglobin 8.7 g/dL (12.0-15.5) Hematocrit 26.0 % (36.0-47.0) Mean Corpuscular Volume 81 fL (79-100) Mean Corpuscular Hemoglobin 27 pg (25-35) Mean Corpuscular Hemoglobin Concent 33 g/dL (31-37) Red Cell Distribution Width 15.9 % (11.5-14.5) Platelet Count 100 x10^3/uL (140-400) Neutrophils (%) (Auto) 86 % (31-73) Lymphocytes (%) (Auto) 4 % (24-48) Monocytes (%) (Auto) 5 % (0-9) Eosinophils (%) (Auto) 4 % (0-3) Basophils (%) (Auto) 0 % (0-3) Neutrophils # (Auto) 1.8 x10^3uL (1.8-7.7) Lymphocytes # (Auto) 0.1 x10^3/uL (1.0-4.8) Monocytes # (Auto) 0.1 x10^3/uL (0.0-1.1) Eosinophils # (Auto) 0.1 x10^3/uL (0.0-0.7) Basophils # (Auto) 0.0 x10^3/uL (0.0-0.2) Sodium Level 136 mmol/L (136-145) Potassium Level 4.4 mmol/L (3.5-5.1) Chloride Level 106 mmol/L (98-107) Carbon Dioxide Level 19 mmol/L (21-32) Anion Gap 11 (6-14) Blood Urea Nitrogen 45 mg/dL (7-20) Creatinine 3.0 mg/dL (0.6-1.0) Estimated GFR (Cockcroft-Gault) 16.0 Glucose Level 124 mg/dL (70-99) Calcium Level 6.5 mg/dL (8.5-10.1) Total Bilirubin 12.1 mg/dL (0.2-1.0) Direct Bilirubin 10.8 mg/dL (0.0-0.2) Aspartate Amino Transf (AST/SGOT) 30 U/L (15-37) Alanine Aminotransferase (ALT/SGPT) 54 U/L (14-59) Alkaline Phosphatase 166 U/L (46-116) Total Protein 3.6 g/dL (6.4-8.2) Albumin 1.6 g/dL (3.4-5.0) Special Test - Miscellaneous See separate report Test 3/21/19 16:05 12/05/18 05:15 Ionized Calcium 0.97 mmol/L (1.13-1.32) White Blood Count 0.9 x10^3/uL (4.0-11.0) Red Blood Count 2.89 x10^6/uL (3.50-5.40) Hemoglobin 7.8 g/dL (12.0-15.5) Hematocrit 23.0 % (36.0-47.0) Mean Corpuscular Volume 80 fL (79-100) Mean Corpuscular Hemoglobin 27 pg (25-35) Mean Corpuscular Hemoglobin Concent 34 g/dL (31-37) Red Cell Distribution Width 16.2 % (11.5-14.5) Platelet Count 66 x10^3/uL (140-400) Neutrophils (%) (Auto) 79 % (31-73) Lymphocytes (%) (Auto) 6 % (24-48) Monocytes (%) (Auto) 6 % (0-9) Eosinophils (%) (Auto) 8 % (0-3) Basophils (%) (Auto) 1 % (0-3) Neutrophils # (Auto) 0.7 x10^3uL (1.8-7.7) Lymphocytes # (Auto) 0.1 x10^3/uL (1.0-4.8) Monocytes # (Auto) 0.1 x10^3/uL (0.0-1.1) Eosinophils # (Auto) 0.1 x10^3/uL (0.0-0.7) Basophils # (Auto) 0.0 x10^3/uL (0.0-0.2) Reticulocyte Count (auto) 2.7 % (0.5-2.5) Sodium Level 138 mmol/L (136-145) Potassium Level 3.8 mmol/L (3.5-5.1) Chloride Level 106 mmol/L (98-107) Carbon Dioxide Level 20 mmol/L (21-32) Anion Gap 12 (6-14) Blood Urea Nitrogen 53 mg/dL (7-20) Creatinine 3.4 mg/dL (0.6-1.0) Estimated GFR (Cockcroft-Gault) 13.9 BUN/Creatinine Ratio 16 (6-20) Glucose Level 94 mg/dL (70-99) Calcium Level 7.3 mg/dL (8.5-10.1) Total Bilirubin 9.0 mg/dL (0.2-1.0) Aspartate Amino Transf (AST/SGOT) 33 U/L (15-37) Alanine Aminotransferase (ALT/SGPT) 50 U/L (14-59) Alkaline Phosphatase 219 U/L (46-116) Lactate Dehydrogenase 373 U/L (81-234) Total Protein 3.8 g/dL (6.4-8.2) Albumin 1.8 g/dL (3.4-5.0) Albumin/Globulin Ratio 0.9 (1.0-1.7) Laboratory Tests Test 12/04/18 11:00 12/04/18 16:05 12/05/18 05:15 Special Test - Miscellaneous See separate report Ionized Calcium 0.97 mmol/L (1.13-1.32) White Blood Count 0.9 x10^3/uL (4.0-11.0) Red Blood Count 2.89 x10^6/uL (3.50-5.40) Hemoglobin 7.8 g/dL (12.0-15.5) Hematocrit 23.0 % (36.0-47.0) Mean Corpuscular Volume 80 fL (79-100) Mean Corpuscular Hemoglobin 27 pg (25-35) Mean Corpuscular Hemoglobin Concent 34 g/dL (31-37) Red Cell Distribution Width 16.2 % (11.5-14.5) Platelet Count 66 x10^3/uL (140-400) Neutrophils (%) (Auto) 79 % (31-73) Lymphocytes (%) (Auto) 6 % (24-48) Monocytes (%) (Auto) 6 % (0-9) Eosinophils (%) (Auto) 8 % (0-3) Basophils (%) (Auto) 1 % (0-3) Neutrophils # (Auto) 0.7 x10^3uL (1.8-7.7) Lymphocytes # (Auto) 0.1 x10^3/uL (1.0-4.8) Monocytes # (Auto) 0.1 x10^3/uL (0.0-1.1) Eosinophils # (Auto) 0.1 x10^3/uL (0.0-0.7) Basophils # (Auto) 0.0 x10^3/uL (0.0-0.2) Reticulocyte Count (auto) 2.7 % (0.5-2.5) Sodium Level 138 mmol/L (136-145) Potassium Level 3.8 mmol/L (3.5-5.1) Chloride Level 106 mmol/L (98-107) Carbon Dioxide Level 20 mmol/L (21-32) Anion Gap 12 (6-14) Blood Urea Nitrogen 53 mg/dL (7-20) Creatinine 3.4 mg/dL (0.6-1.0) Estimated GFR (Cockcroft-Gault) 13.9 BUN/Creatinine Ratio 16 (6-20) Glucose Level 94 mg/dL (70-99) Calcium Level 7.3 mg/dL (8.5-10.1) Total Bilirubin 9.0 mg/dL (0.2-1.0) Aspartate Amino Transf (AST/SGOT) 33 U/L (15-37) Alanine Aminotransferase (ALT/SGPT) 50 U/L (14-59) Alkaline Phosphatase 219 U/L (46-116) Lactate Dehydrogenase 373 U/L (81-234) Total Protein 3.8 g/dL (6.4-8.2) Albumin 1.8 g/dL (3.4-5.0) Albumin/Globulin Ratio 0.9 (1.0-1.7) Microbiology 12/03/18 Blood Culture - Preliminary, Resulted NO GROWTH AFTER 2 DAYS 12/03/18 Urine Culture - Final, Complete 12/03/18 Urine Culture Result 1 (DANIAL) - Final, Complete Medications Current Medications Sodium Chloride 1,000 ml @ 1,000 mls/hr 1X ONCE IV Last administered on at 23:50; Start 12/02/18 at 23:30; Stop 12/03/18 at 00:29; Status DC Sodium Chloride 1,000 ml @ 1,000 mls/hr 1X ONCE IV Last administered on at 00:08; Start 12/02/18 at 23:30; Stop 12/03/18 at 00:29; Status DC Meropenem 1 gm/ Sodium Chloride 100 ml @ 200 mls/hr Q8HRS IV Last administered on 12/02/18at 23:51; Start 12/03/18 at 00:00; Stop 12/03/18 at 03:21 ; Status DC Vancomycin HCl (Vanco Per Pharmacy) 1 each PRN DAILY PRN MC SEE COMMENTS Last administered on 12/03/18at 03:45; Start 12/02/18 at 23:30; Stop 12/03/18 at 07:49 ; Status DC Vancomycin HCl 2 gm/Sodium Chloride 500 ml @ 250 mls/hr 1X ONCE IV Last administered on 12/03/18at 00:12; Start 12/03/18 at 00:30; Stop 12/03/18 at 02:29 ; Status DC Iohexol (Omnipaque 300 Mg/ml) 75 ml 1X ONCE IV Last administered on 12/03/18at 00:41; Start 12/03/18 at 01:00; Stop 12/03/18 at 01:01; Status DC Info (CONTRAST GIVEN -- Rx MONITORING) 1 each PRN DAILY PRN MC SEE COMMENTS; Start 12/03/18 at 00:30; Stop 12/05/18 at 00:29; Status DC Sodium Chloride 1,000 ml @ 1,000 mls/hr 1X ONCE IV Last administered on at 01:08; Start 12/03/18 at 01:00; Stop 12/03/18 at 01:59; Status DC Norepinephrine Bitartrate 250 ml @ 0 mls/hr 1X ONCE IV Last administered on at 01:24; Start 12/03/18 at 01:30; Stop 12/03/18 at 01:31; Status DC Diphenhydramine HCl (Benadryl) 25 mg 1X ONCE IVP Last administered on at 02:01; Start 12/03/18 at 02:00; Stop 12/03/18 at 02:01; Status DC Magnesium Sulfate/ Dextrose 100 ml @ 100 mls/hr 1X ONCE IV Last administered on 12/03/18at 02:08; Start 12/03/18 at 02:00; Stop 12/03/18 at 02:59; Status DC Aspirin (Children'S Aspirin) 324 mg 1X ONCE PO Last administered on 12/03/18at 01:59; Start 12/03/18 at 02:00; Stop 12/03/18 at 02:01; Status DC Sodium Chloride 1,000 ml @ 175 mls/hr Q5H43M IV Last administered on at 04:23; Start 12/03/18 at 03:30; Stop 12/04/18 at 03:29; Status DC Meropenem 1 gm/ Sodium Chloride 100 ml @ 200 mls/hr Q12HR IV Last administered on 12/05/18at 08:57; Start 12/03/18 at 09:00 Vancomycin HCl 1.75 gm/Sodium Chloride 500 ml @ 250 mls/hr Q24H IV ; Start at 00:00; Stop 12/04/18 at 00:00; Status DC Vancomycin HCl (Vancomycin Trough Level) 1 each 1X ONCE MC ; Start 12/04/18 at 23:30; Stop 12/04/18 at 23:30; Status DC Diphenhydramine HCl (Benadryl) 25 mg PRN Q6HRS PRN IVP ITCHING; Start 12/03/18 at 04:45 Iohexol (Omnipaque 300 Mg/ml) 100 ml STK-MED ONCE .ROUTE ; Start 12/03/18 at 06: 01; Stop 12/03/18 at 06:02; Status DC Vancomycin HCl (Vancomycin Oral Solution) 125 mg [id number] PO Last administered on 12/04/18at 20:34; Start 12/03/18 at 09:00 Acetaminophen (Tylenol) 650 mg PRN Q6HRS PRN PO Headaches, Temp > 101.5' Last administered on 12/04/18at 14:40; Start 12/03/18 at 07:45 Lorazepam (Ativan) 0.5 mg PRN Q6HRS PRN IV ANXIETY / AGITATION; Start 12/03/18 at 07:45 Ondansetron HCl (Zofran) 4 mg PRN Q6HRS PRN IV NAUSEA/VOMITING Last administered on 12/05/18at 05:47; Start 12/03/18 at 07:45 Info ([facility]cu Electrolyte Protocol) 1 ea DAILY MC Last administered on 12/03/18at 09 :00; Start 12/03/18 at 09:00 Heparin Sodium (Porcine) (Heparin Sodium) 5,000 unit Q8HRS SQ Last administered on 12/05/18at 05:41; Start 12/03/18 at 08:00 Sodium Chloride (Normal Saline Flush) 3 ml QSHIFT PRN IV AFTER MEDS AND BLOOD DRAWS; Start 12/03/18 at 07:45 Oxycodone/ Acetaminophen (Percocet 5/325) 1 tab PRN Q4HRS PRN PO MILD PAIN, 1ST CHOICE; Start 12/03/18 at 07:45 Morphine Sulfate (Morphine Sulfate) 2 mg PRN Q1HR PRN IV PAIN; Start 12/03/18 at 07:45 Aspirin (Children'S Aspirin) 81 mg DAILY PO Last administered on 12/04/18at 09: 33; Start 12/03/18 at 09:00 Clotrimazole (Mycelex-7) 1 estefany DAILY VG Last administered on 12/04/18at 09:36; Start 12/03/18 at 09:00; Stop 12/10/18 at 08:59 Duloxetine HCl (Cymbalta) 30 mg DAILY PO Last administered on 12/04/18at 09:33; Start 12/03/18 at 09:00 Levothyroxine Sodium (Synthroid) 100 mcg DAILY06 PO ; Start 12/03/18 at 08:00; Status Cancel Nystatin (Nystatin Oral Susp) 5 ml TID SWSW ; Start 12/03/18 at 09:00; Stop at 10:21; Status DC Ciprofloxacin/ Dextrose 200 ml @ 200 mls/hr Q12HR IV Last administered on 12/04at 20:34; Start 12/03/18 at 09:00 Daptomycin 460 mg/ Sodium Chloride 50 ml @ 100 mls/hr Q24H IV Last administered on 12/04/18at 09:34; Start 12/03/18 at 09:00 Micafungin Sodium 100 mg/Dextrose 100 ml @ 100 mls/hr Q24H IV Last administered on 12/04/18at 09:06; Start 12/03/18 at 09:00 Non-Formulary Medication 1 ea DAILY06 PO Last administered on 12/05/18at 05:40; Start 12/03/18 at 09:30 Magnesium Sulfate 50 ml @ 25 mls/hr 1X ONCE IV Last administered on 12/03/18at 11:09; Start 12/03/18 at 10:00; Stop 12/03/18 at 11:59; Status DC Norepinephrine Bitartrate 250 ml @ 1.875 mls/ hr CONT PRN IV SEE I/O RECORD Last administered on 12/04/18at 14:24; Start 12/03/18 at 11:15 Sodium Chloride 1,000 ml @ 999 mls/hr Q1H1M IV Last administered on 12/03/18at 14:24; Start 12/03/18 at 13:45; Stop 12/03/18 at 14:32; Status DC Vasopressin 40 unit/Dextrose 102 ml @ 6 mls/hr CONT PRN IV SEE I/O RECORD Last administered on 12/04/18at 09:01; Start 12/03/18 at 15:00 Sodium Chloride 1,000 ml @ 100 mls/hr Q10H IV Last administered on 12/04/18at 23:25; Start 12/04/18 at 20:45 Tbo-Filgrastim (Granix) 480 mcg QHS SQ ; Start 12/05/18 at 21:00 Active Scripts Active Nystatin 100,000 Unit/1 Ml Oral.susp 5 Ml SWSW TID 3 Days Clotrimazole 45 Gm Cream.appl 1 Estefany VG DAILY 3 Days Levaquin (Levofloxacin) 500 Mg Tablet 500 Mg PO DAILY06 7 Days Reported Biotin 10,000 Mcg Capsule 10,000 Mcg PO DAILY Multivitamins (Multivitamin) 1 Each Tablet 1 Each PO DAILY Metoprolol Tartrate 25 Mg Tablet 25 Mg PO DAILY Cymbalta (Duloxetine Hcl) 30 Mg Capsule.dr 1 Cap PO DAILY Aspirin 81 Mg Tab.chew 1 Tab PO DAILY Synthroid (Levothyroxine Sodium) 88 Mcg Tablet 100 Mcg PO DAILY [place] (Estradiol) 1 Each Patch.tdwk Latanoprost 2.5 Ml Drops 1 Drop EACHEYE QHS Vitals/I & O Vital Sign - Last 24 Hours 12/04/18 12/04/18 12/04/18 12/04/18 12:00 12:00 14:00 15:00 Temp 98.5 98.5 Pulse 106 96 100 Resp 16 15 18 B/P (MAP) 113/49 (70) 116/50 (72) 105/47 (66) Pulse Ox 96 99 97 O2 Delivery Room Air Room Air Room Air Room Air 12/04/18 12/04/18 12/04/18 12/04/18 16:00 16:00 17:00 18:00 Temp 98.1 98.1 Pulse 100 101 99 Resp 16 18 14 B/P (MAP) 124/58 (80) 124/58 (80) 129/58 (81) Pulse Ox 97 97 95 O2 Delivery Room Air Room Air Room Air Room Air 12/04/18 12/04/18 12/04/18 12/04/18 19:00 19:15 19:45 20:00 Temp 97.9 97.9 Pulse 106 106 106 108 Resp 17 17 B/P (MAP) 140/61 (87) 137/51 (79) 139/50 (79) 133/51 (78) Pulse Ox 96 95 O2 Delivery Room Air Room Air 12/04/18 12/04/18 12/04/18 12/04/18 20:00 20:25 21:00 22:00 Pulse 104 114 112 Resp 19 16 B/P (MAP) 138/48 (78) 136/49 (78) 114/46 (68) Pulse Ox 97 96 O2 Delivery Room Air Room Air Room Air 12/04/18 12/04/18 12/05/18 12/05/18 23:00 23:55 00:00 01:00 Temp 98.7 98.7 Pulse 108 107 106 Resp 15 16 13 B/P (MAP) 119/49 (72) 114/42 (66) 99/46 (63) Pulse Ox 97 96 93 O2 Delivery Room Air Room Air Room Air Room Air 12/05/18 12/05/18 12/05/18 12/05/18 02:00 03:00 04:00 04:00 Temp 98.7 98.7 Pulse 106 106 113 Resp 14 14 13 B/P (MAP) 110/44 (66) 107/70 (82) 112/44 (66) Pulse Ox 94 91 95 O2 Delivery Room Air Room Air Room Air Room Air 12/05/18 12/05/18 12/05/18 05:00 06:00 08:00 Pulse 102 103 Resp 16 16 B/P (MAP) 119/40 (66) 118/48 (71) Pulse Ox 94 94 O2 Delivery Room Air Room Air Room Air Intake and Output 12/04/18 12/04/18 12/05/18 14:59 22:59 06:59 Intake Total 450 ml 920 ml 1650 ml Output Total 700 ml 1200 ml 1525 ml Balance -250 ml -280 ml 125 ml BRIAN DARLING MD Dec 05, 2018 10:13
--- NOTE | 2018-12-05 10:52 | PDOC ---
PROGRESS NOTES Subjective Subjective SEEN IN FOLLOW UP OF ARF AND SEPSIS Objective Objective Vital Signs Date Time Temp Pulse Resp B/P (MAP) Pulse Ox O2 Delivery O2 Flow Rate FiO2 12/05/18 08:00 Room Air 12/05/18 06:00 103 16 118/48 (71) 94 12/05/18 04:00 98.7 98.7 Intake and Output 12/05/18 06:59 Intake Total 3020 ml Output Total 3425 ml Balance -405 ml Intake Oral 700 ml IV Total 2320 ml Output Urine Total 3425 ml # Bowel Movements 4 Physical Exam Abdomen: No tenderness Heart: Regular rate, Normal S1, Normal S2, No murmurs, Gallops Extremities: Other (DIFFUSE EDEMA) General: Alert, Oriented X3, Cooperative, No acute distress Lungs: Clear to auscultation, Normal air movement Psych/Mental Status: Mental status NL, Mood NL Diagnosis RENAL FAILURE: Acute (Acute tubular necrosis) Plan Plan of Care VERY GOOD URINE OUTPUT. RENAL FUNCTION PER GFR IS WORSENING. LIKELY PRERENAL IN ADDITION TO ATN. WILL INCREASE IVF AND ENCOURAGE PO FLUIDS. ADVANCE DIET. HOPE TO AVOID DIALYSIS. WITH GOOD UO WILL HOLD ON HD CATHETER ;PLACEMENT Comment Review of Relevant I have reviewed the following items kike (where applicable) has been applied. Labs Laboratory Tests Test 12/03/18 14:00 12/03/18 19:20 12/04/18 05:00 12/04/18 11:00 Urine Collection Type Unknown Urine Color [place] Urine Clarity Turbid Urine pH 5.0 Urine Specific [place] >=1.030 Urine Protein 30 mg/dL (NEG-TRACE) Urine Glucose (UA) Negative mg/dL (NEG) Urine Ketones (Stick) 15 mg/dL (NEG) Urine Blood Negative (NEG) Urine Nitrite Negative (NEG) Urine Bilirubin Large (NEG) Urine Urobilinogen Dipstick 1.0 mg/dL (0.2 mg/dL) Urine Leukocyte Esterase Negative (NEG) Urine RBC 0 /HPF (0-2) Urine WBC 5-10 /HPF (0-4) Urine Squamous Epithelial Cells Mod /LPF Urine Transitional Epithelial Cells Mod /LPF Urine Amorphous Sediment Present /HPF Urine Bacteria 0 /HPF (0-FEW) Urine Granular Casts Few /HPF Urine Waxy Casts Occasional /HPF Hepatitis A IgM Antibody Nonreactive (Nonreactive) Hepatitis B Surface Antigen Nonreactive (Nonreactive) Hepatitis B Core IgM Antibody Nonreactive (Nonreactive) Hepatitis C IgG Antibody Nonreactive (Nonreactive) White Blood Count 2.1 x10^3/uL (4.0-11.0) Red Blood Count 3.22 x10^6/uL (3.50-5.40) Hemoglobin 8.7 g/dL (12.0-15.5) Hematocrit 26.0 % (36.0-47.0) Mean Corpuscular Volume 81 fL (79-100) Mean Corpuscular Hemoglobin 27 pg (25-35) Mean Corpuscular Hemoglobin Concent 33 g/dL (31-37) Red Cell Distribution Width 15.9 % (11.5-14.5) Platelet Count 100 x10^3/uL (140-400) Neutrophils (%) (Auto) 86 % (31-73) Lymphocytes (%) (Auto) 4 % (24-48) Monocytes (%) (Auto) 5 % (0-9) Eosinophils (%) (Auto) 4 % (0-3) Basophils (%) (Auto) 0 % (0-3) Neutrophils # (Auto) 1.8 x10^3uL (1.8-7.7) Lymphocytes # (Auto) 0.1 x10^3/uL (1.0-4.8) Monocytes # (Auto) 0.1 x10^3/uL (0.0-1.1) Eosinophils # (Auto) 0.1 x10^3/uL (0.0-0.7) Basophils # (Auto) 0.0 x10^3/uL (0.0-0.2) Sodium Level 136 mmol/L (136-145) Potassium Level 4.4 mmol/L (3.5-5.1) Chloride Level 106 mmol/L (98-107) Carbon Dioxide Level 19 mmol/L (21-32) Anion Gap 11 (6-14) Blood Urea Nitrogen 45 mg/dL (7-20) Creatinine 3.0 mg/dL (0.6-1.0) Estimated GFR (Cockcroft-Gault) 16.0 Glucose Level 124 mg/dL (70-99) Calcium Level 6.5 mg/dL (8.5-10.1) Total Bilirubin 12.1 mg/dL (0.2-1.0) Direct Bilirubin 10.8 mg/dL (0.0-0.2) Aspartate Amino Transf (AST/SGOT) 30 U/L (15-37) Alanine Aminotransferase (ALT/SGPT) 54 U/L (14-59) Alkaline Phosphatase 166 U/L (46-116) Total Protein 3.6 g/dL (6.4-8.2) Albumin 1.6 g/dL (3.4-5.0) Special Test - Miscellaneous See separate report Test 12/04/18 16:05 12/05/18 05:15 Ionized Calcium 0.97 mmol/L (1.13-1.32) White Blood Count 0.9 x10^3/uL (4.0-11.0) Red Blood Count 2.89 x10^6/uL (3.50-5.40) Hemoglobin 7.8 g/dL (12.0-15.5) Hematocrit 23.0 % (36.0-47.0) Mean Corpuscular Volume 80 fL (79-100) Mean Corpuscular Hemoglobin 27 pg (25-35) Mean Corpuscular Hemoglobin Concent 34 g/dL (31-37) Red Cell Distribution Width 16.2 % (11.5-14.5) Platelet Count 66 x10^3/uL (140-400) Neutrophils (%) (Auto) 79 % (31-73) Lymphocytes (%) (Auto) 6 % (24-48) Monocytes (%) (Auto) 6 % (0-9) Eosinophils (%) (Auto) 8 % (0-3) Basophils (%) (Auto) 1 % (0-3) Neutrophils # (Auto) 0.7 x10^3uL (1.8-7.7) Lymphocytes # (Auto) 0.1 x10^3/uL (1.0-4.8) Monocytes # (Auto) 0.1 x10^3/uL (0.0-1.1) Eosinophils # (Auto) 0.1 x10^3/uL (0.0-0.7) Basophils # (Auto) 0.0 x10^3/uL (0.0-0.2) Reticulocyte Count (auto) 2.7 % (0.5-2.5) Sodium Level 138 mmol/L (136-145) Potassium Level 3.8 mmol/L (3.5-5.1) Chloride Level 106 mmol/L (98-107) Carbon Dioxide Level 20 mmol/L (21-32) Anion Gap 12 (6-14) Blood Urea Nitrogen 53 mg/dL (7-20) Creatinine 3.4 mg/dL (0.6-1.0) Estimated GFR (Cockcroft-Gault) 13.9 BUN/Creatinine Ratio 16 (6-20) Glucose Level 94 mg/dL (70-99) Calcium Level 7.3 mg/dL (8.5-10.1) Total Bilirubin 9.0 mg/dL (0.2-1.0) Aspartate Amino Transf (AST/SGOT) 33 U/L (15-37) Alanine Aminotransferase (ALT/SGPT) 50 U/L (14-59) Alkaline Phosphatase 219 U/L (46-116) Lactate Dehydrogenase 373 U/L (81-234) Total Protein 3.8 g/dL (6.4-8.2) Albumin 1.8 g/dL (3.4-5.0) Albumin/Globulin Ratio 0.9 (1.0-1.7) Laboratory Tests Test 12/04/18 11:00 12/04/18 16:05 12/05/18 05:15 Special Test - Miscellaneous See separate report Ionized Calcium 0.97 mmol/L (1.13-1.32) White Blood Count 0.9 x10^3/uL (4.0-11.0) Red Blood Count 2.89 x10^6/uL (3.50-5.40) Hemoglobin 7.8 g/dL (12.0-15.5) Hematocrit 23.0 % (36.0-47.0) Mean Corpuscular Volume 80 fL (79-100) Mean Corpuscular Hemoglobin 27 pg (25-35) Mean Corpuscular Hemoglobin Concent 34 g/dL (31-37) Red Cell Distribution Width 16.2 % (11.5-14.5) Platelet Count 66 x10^3/uL (140-400) Neutrophils (%) (Auto) 79 % (31-73) Lymphocytes (%) (Auto) 6 % (24-48) Monocytes (%) (Auto) 6 % (0-9) Eosinophils (%) (Auto) 8 % (0-3) Basophils (%) (Auto) 1 % (0-3) Neutrophils # (Auto) 0.7 x10^3uL (1.8-7.7) Lymphocytes # (Auto) 0.1 x10^3/uL (1.0-4.8) Monocytes # (Auto) 0.1 x10^3/uL (0.0-1.1) Eosinophils # (Auto) 0.1 x10^3/uL (0.0-0.7) Basophils # (Auto) 0.0 x10^3/uL (0.0-0.2) Reticulocyte Count (auto) 2.7 % (0.5-2.5) Sodium Level 138 mmol/L (136-145) Potassium Level 3.8 mmol/L (3.5-5.1) Chloride Level 106 mmol/L (98-107) Carbon Dioxide Level 20 mmol/L (21-32) Anion Gap 12 (6-14) Blood Urea Nitrogen 53 mg/dL (7-20) Creatinine 3.4 mg/dL (0.6-1.0) Estimated GFR (Cockcroft-Gault) 13.9 BUN/Creatinine Ratio 16 (6-20) Glucose Level 94 mg/dL (70-99) Calcium Level 7.3 mg/dL (8.5-10.1) Total Bilirubin 9.0 mg/dL (0.2-1.0) Aspartate Amino Transf (AST/SGOT) 33 U/L (15-37) Alanine Aminotransferase (ALT/SGPT) 50 U/L (14-59) Alkaline Phosphatase 219 U/L (46-116) Lactate Dehydrogenase 373 U/L (81-234) Total Protein 3.8 g/dL (6.4-8.2) Albumin 1.8 g/dL (3.4-5.0) Albumin/Globulin Ratio 0.9 (1.0-1.7) Microbiology 12/03/18 Blood Culture - Preliminary, Resulted NO GROWTH AFTER 2 DAYS 12/03/18 Urine Culture - Final, Complete 12/03/18 Urine Culture Result 1 (DANIAL) - Final, Complete Medications Current Medications Sodium Chloride 1,000 ml @ 1,000 mls/hr 1X ONCE IV Last administered on at 23:50; Start 12/02/18 at 23:30; Stop 12/03/18 at 00:29; Status DC Sodium Chloride 1,000 ml @ 1,000 mls/hr 1X ONCE IV Last administered on at 00:08; Start 12/02/18 at 23:30; Stop 12/03/18 at 00:29; Status DC Meropenem 1 gm/ Sodium Chloride 100 ml @ 200 mls/hr Q8HRS IV Last administered on 12/02/18at 23:51; Start 12/03/18 at 00:00; Stop 12/03/18 at 03:21 ; Status DC Vancomycin HCl (Vanco Per Pharmacy) 1 each PRN DAILY PRN MC SEE COMMENTS Last administered on 12/03/18at 03:45; Start 12/02/18 at 23:30; Stop 12/03/18 at 07:49 ; Status DC Vancomycin HCl 2 gm/Sodium Chloride 500 ml @ 250 mls/hr 1X ONCE IV Last administered on 12/03/18at 00:12; Start 12/03/18 at 00:30; Stop 12/03/18 at 02:29 ; Status DC Iohexol (Omnipaque 300 Mg/ml) 75 ml 1X ONCE IV Last administered on 12/03/18at 00:41; Start 12/03/18 at 01:00; Stop 12/03/18 at 01:01; Status DC Info (CONTRAST GIVEN -- Rx MONITORING) 1 each PRN DAILY PRN MC SEE COMMENTS; Start 12/03/18 at 00:30; Stop 12/05/18 at 00:29; Status DC Sodium Chloride 1,000 ml @ 1,000 mls/hr 1X ONCE IV Last administered on at 01:08; Start 12/03/18 at 01:00; Stop 12/03/18 at 01:59; Status DC Norepinephrine Bitartrate 250 ml @ 0 mls/hr 1X ONCE IV Last administered on at 01:24; Start 12/03/18 at 01:30; Stop 12/03/18 at 01:31; Status DC Diphenhydramine HCl (Benadryl) 25 mg 1X ONCE IVP Last administered on at 02:01; Start 12/03/18 at 02:00; Stop 12/03/18 at 02:01; Status DC Magnesium Sulfate/ Dextrose 100 ml @ 100 mls/hr 1X ONCE IV Last administered on 12/03/18at 02:08; Start 12/03/18 at 02:00; Stop 12/03/18 at 02:59; Status DC Aspirin (Children'S Aspirin) 324 mg 1X ONCE PO Last administered on 12/03/18at 01:59; Start 12/03/18 at 02:00; Stop 12/03/18 at 02:01; Status DC Sodium Chloride 1,000 ml @ 175 mls/hr Q5H43M IV Last administered on at 04:23; Start 12/03/18 at 03:30; Stop 12/04/18 at 03:29; Status DC Meropenem 1 gm/ Sodium Chloride 100 ml @ 200 mls/hr Q12HR IV Last administered on 12/05/18at 08:57; Start 12/03/18 at 09:00 Vancomycin HCl 1.75 gm/Sodium Chloride 500 ml @ 250 mls/hr Q24H IV ; Start at 00:00; Stop 12/04/18 at 00:00; Status DC Vancomycin HCl (Vancomycin Trough Level) 1 each 1X ONCE MC ; Start 12/04/18 at 23:30; Stop 12/04/18 at 23:30; Status DC Diphenhydramine HCl (Benadryl) 25 mg PRN Q6HRS PRN IVP ITCHING; Start 12/03/18 at 04:45 Iohexol (Omnipaque 300 Mg/ml) 100 ml STK-MED ONCE .ROUTE ; Start 12/03/18 at 06: 01; Stop 12/03/18 at 06:02; Status DC Vancomycin HCl (Vancomycin Oral Solution) 125 mg [id number] PO Last administered on 12/04/18at 20:34; Start 12/03/18 at 09:00 Acetaminophen (Tylenol) 650 mg PRN Q6HRS PRN PO Headaches, Temp > 101.5' Last administered on 12/04/18at 14:40; Start 12/03/18 at 07:45 Lorazepam (Ativan) 0.5 mg PRN Q6HRS PRN IV ANXIETY / AGITATION; Start 12/03/18 at 07:45 Ondansetron HCl (Zofran) 4 mg PRN Q6HRS PRN IV NAUSEA/VOMITING Last administered on 12/05/18 05:47; Start 12/03/18 at 07:45 Info (Icu Electrolyte Protocol) 1 ea DAILY MC Last administered on 12/03/18 09 :00; Start 12/03/18 at 09:00 Heparin Sodium (Porcine) (Heparin Sodium) 5,000 unit Q8HRS SQ Last administered on 12/05/18 05:41; Start 12/03/18 at 08:00 Sodium Chloride (Normal Saline Flush) 3 ml QSHIFT PRN IV AFTER MEDS AND BLOOD DRAWS; Start 12/03/18 at 07:45 Oxycodone/ Acetaminophen (Percocet 5/325) 1 tab PRN Q4HRS PRN PO MILD PAIN, 1ST CHOICE; Start 12/03/18 at 07:45 Morphine Sulfate (Morphine Sulfate) 2 mg PRN Q1HR PRN IV PAIN; Start 12/03/18 at 07:45 Aspirin (Children'S Aspirin) 81 mg DAILY PO Last administered on 12/04/18 09: 33; Start 12/03/18 at 09:00 Clotrimazole (Mycelex-7) 1 estefany DAILY VG Last administered on 12/04/18 09:36; Start 12/03/18 at 09:00; Stop 12/10/18 at 08:59 Duloxetine HCl (Cymbalta) 30 mg DAILY PO Last administered on 12/04/18 09:33; Start 12/03/18 at 09:00 Levothyroxine Sodium (Synthroid) 100 mcg DAILY06 PO ; Start 12/03/18 at 08:00; Status Cancel Nystatin (Nystatin Oral Susp) 5 ml TID SWSW ; Start 12/03/18 at 09:00; Stop at 10:21; Status DC Ciprofloxacin/ Dextrose 200 ml @ 200 mls/hr Q12HR IV Last administered on 12/04 20:34; Start 12/03/18 at 09:00 Daptomycin 460 mg/ Sodium Chloride 50 ml @ 100 mls/hr Q24H IV Last administered on 12/04/18 09:34; Start 12/03/18 at 09:00 Micafungin Sodium 100 mg/Dextrose 100 ml @ 100 mls/hr Q24H IV Last administered on 12/04/18 09:06; Start 12/03/18 at 09:00 Non-Formulary Medication 1 ea DAILY06 PO Last administered on 12/05/18at 05:40; Start 12/03/18 at 09:30 Magnesium Sulfate 50 ml @ 25 mls/hr 1X ONCE IV Last administered on 12/03/18at 11:09; Start 12/03/18 at 10:00; Stop 12/03/18 at 11:59; Status DC Norepinephrine Bitartrate 250 ml @ 1.875 mls/ hr CONT PRN IV SEE I/O RECORD Last administered on 12/04/18at 14:24; Start 12/03/18 at 11:15 Sodium Chloride 1,000 ml @ 999 mls/hr Q1H1M IV Last administered on 12/03/18at 14:24; Start 12/03/18 at 13:45; Stop 12/03/18 at 14:32; Status DC Vasopressin 40 unit/Dextrose 102 ml @ 6 mls/hr CONT PRN IV SEE I/O RECORD Last administered on 12/04/18at 09:01; Start 12/03/18 at 15:00 Sodium Chloride 1,000 ml @ 100 mls/hr Q10H IV Last administered on 12/04/18at 23:25; Start 12/04/18 at 20:45 Tbo-Filgrastim (Granix) 480 mcg QHS SQ ; Start 12/05/18 at 21:00 Active Scripts Active Nystatin 100,000 Unit/1 Ml Oral.susp 5 Ml SWSW TID 3 Days Clotrimazole 45 Gm Cream.appl 1 Estefany VG DAILY 3 Days Levaquin (Levofloxacin) 500 Mg Tablet 500 Mg PO DAILY06 7 Days Reported Biotin 10,000 Mcg Capsule 10,000 Mcg PO DAILY Multivitamins (Multivitamin) 1 Each Tablet 1 Each PO DAILY Metoprolol Tartrate 25 Mg Tablet 25 Mg PO DAILY Cymbalta (Duloxetine Hcl) 30 Mg Capsule.dr 1 Cap PO DAILY Aspirin 81 Mg Tab.chew 1 Tab PO DAILY Synthroid (Levothyroxine Sodium) 88 Mcg Tablet 100 Mcg PO DAILY [place] (Estradiol) 1 Each Patch.tdwk Latanoprost 2.5 Ml Drops 1 Drop EACHEYE QHS Vitals/I & O Vital Sign - Last 24 Hours 12/04/18 12/04/18 12/04/18 12/04/18 12:00 12:00 14:00 15:00 Temp 98.5 98.5 Pulse 106 96 100 Resp 16 15 18 B/P (MAP) 113/49 (70) 116/50 (72) 105/47 (66) Pulse Ox 96 99 97 O2 Delivery Room Air Room Air Room Air Room Air 12/04/18 12/04/18 12/04/18 12/04/18 16:00 16:00 17:00 18:00 Temp 98.1 98.1 Pulse 100 101 99 Resp 16 18 14 B/P (MAP) 124/58 (80) 124/58 (80) 129/58 (81) Pulse Ox 97 97 95 O2 Delivery Room Air Room Air Room Air Room Air 12/04/18 12/04/18 12/04/18 12/04/18 19:00 19:15 19:45 20:00 Temp 97.9 97.9 Pulse 106 106 106 108 Resp 17 17 B/P (MAP) 140/61 (87) 137/51 (79) 139/50 (79) 133/51 (78) Pulse Ox 96 95 O2 Delivery Room Air Room Air 12/04/18 12/04/18 12/04/18 12/04/18 20:00 20:25 21:00 22:00 Pulse 104 114 112 Resp 19 16 B/P (MAP) 138/48 (78) 136/49 (78) 114/46 (68) Pulse Ox 97 96 O2 Delivery Room Air Room Air Room Air 12/04/18 12/04/18 12/05/18 12/05/18 23:00 23:55 00:00 01:00 Temp 98.7 98.7 Pulse 108 107 106 Resp 15 16 13 B/P (MAP) 119/49 (72) 114/42 (66) 99/46 (63) Pulse Ox 97 96 93 O2 Delivery Room Air Room Air Room Air Room Air 12/05/18 12/05/18 12/05/18 12/05/18 02:00 03:00 04:00 04:00 Temp 98.7 98.7 Pulse 106 106 113 Resp 14 14 13 B/P (MAP) 110/44 (66) 107/70 (82) 112/44 (66) Pulse Ox 94 91 95 O2 Delivery Room Air Room Air Room Air Room Air 12/05/18 12/05/1812/05/19 05:00 06:00 08:00 Pulse 102 103 Resp 16 16 B/P (MAP) 119/40 (66) 118/48 (71) Pulse Ox 94 94 O2 Delivery Room Air Room Air Room Air Intake and Output 12/04/18 12/04/18 12/05/18 14:59 22:59 06:59 Intake Total 450 ml 920 ml 1650 ml Output Total 700 ml 1200 ml 1525 ml Balance -250 ml -280 ml 125 ml SILVIO MCRAE MD Dec 05, 2018 10:52
[2018-12-05] MEDS: IV NORMAL SALINE 1000ML BAG 1,000 ML IV SCH ×3 (11:07→22:21)
[2018-12-05] MEDS: CIPROFLOXACIN 400MG PREMIX 200 ML IV SCH ×2 (11:07→20:50)
[2018-12-05] MEDS: DULoxetine HCL 30 MG CAPSULE.DR PO SCH (11:08)
[2018-12-05] MEDS: MICAFUNGIN 100 MG in IV DEXTROSE 5% 100ML 100 ML IV SCH (11:08)
[2018-12-05] MEDS: ASPIRIN CHEWABLE 81 MG TABLET. PO SCH (11:08)
[2018-12-05] MEDS: DAPTOmycin (GENERIC) IVPB 460 MG in IV NORMAL SALINE 50ML 50 ML IV SCH (11:10)
[2018-12-05] MEDS ORDERED: CALCIUM GLUCONATE 1,000 MG/10 ML VIAL. IVP ONE (11:15)
[2018-12-05] MEDS ORDERED: CALCIUM GLUCONATE 1,000 MG in IV DEXTROSE 5% 100ML 100 ML IV ONE (12:00)
--- NOTE | 2018-12-05 12:12 | PDOC ---
PULMONARY PROGRESS NOTES Subjective no soa off levophed making urine Vitals Vital Signs Date Time Temp Pulse Resp B/P (MAP) Pulse Ox O2 Delivery O2 Flow Rate FiO2 12/05/18 08:00 Room Air 12/05/18 06:00 103 16 118/48 (71) 94 12/05/18 04:00 98.7 98.7 ROS: No Nausea, No Chest Pain General: Alert, No acute distress Lungs: Clear Cardiovascular: S1, S2 Abdomen: Soft Neuro Exam: Alert Extremities: Other (jaundice, 1+edema) Skin: Warm, Dry Labs Laboratory Tests Test 12/03/18 14:00 12/03/18 16:10 12/03/18 19:20 12/04/18 02:00 Urine Collection Type Unknown Urine Color [place] Urine Clarity Turbid Urine pH 5.0 Urine Specific [place] >=1.030 Urine Protein 30 mg/dL (NEG-TRACE) Urine Glucose (UA) Negative mg/dL (NEG) Urine Ketones (Stick) 15 mg/dL (NEG) Urine Blood Negative (NEG) Urine Nitrite Negative (NEG) Urine Bilirubin Large (NEG) Urine Urobilinogen Dipstick 1.0 mg/dL (0.2 mg/dL) Urine Leukocyte Esterase Negative (NEG) Urine RBC 0 /HPF (0-2) Urine WBC 5-10 /HPF (0-4) Urine Squamous Epithelial Cells Mod /LPF Urine Transitional Epithelial Cells Mod /LPF Urine Amorphous Sediment Present /HPF Urine Bacteria 0 /HPF (0-FEW) Urine Granular Casts Few /HPF Urine Waxy Casts Occasional /HPF Urine Legionella Antigen Negative (Negative) Hepatitis A IgM Antibody Nonreactive (Nonreactive) Hepatitis B Surface Antigen Nonreactive (Nonreactive) Hepatitis B Core IgM Antibody Nonreactive (Nonreactive) Hepatitis C IgG Antibody Nonreactive (Nonreactive) Clostridium difficile Toxin B Gene Negative (Negative) Test 12/04/18 05:00 12/04/18 11:00 12/04/18 16:05 12/05/18 05:15 White Blood Count 2.1 x10^3/uL (4.0-11.0) 0.9 x10^3/uL (4.0-11.0) Red Blood Count 3.22 x10^6/uL (3.50-5.40) 2.89 x10^6/uL (3.50-5.40) Hemoglobin 8.7 g/dL (12.0-15.5) 7.8 g/dL (12.0-15.5) Hematocrit 26.0 % (36.0-47.0) 23.0 % (36.0-47.0) Mean Corpuscular Volume 81 fL (79-100) 80 fL (79-100) Mean Corpuscular Hemoglobin 27 pg (25-35) 27 pg (25-35) Mean Corpuscular Hemoglobin Concent 33 g/dL (31-37) 34 g/dL (31-37) Red Cell Distribution Width 15.9 % (11.5-14.5) 16.2 % (11.5-14.5) Platelet Count 100 x10^3/uL (140-400) 66 x10^3/uL (140-400) Neutrophils (%) (Auto) 86 % (31-73) 79 % (31-73) Lymphocytes (%) (Auto) 4 % (24-48) 6 % (24-48) Monocytes (%) (Auto) 5 % (0-9) 6 % (0-9) Eosinophils (%) (Auto) 4 % (0-3) 8 % (0-3) Basophils (%) (Auto) 0 % (0-3) 1 % (0-3) Neutrophils # (Auto) 1.8 x10^3uL (1.8-7.7) 0.7 x10^3uL (1.8-7.7) Lymphocytes # (Auto) 0.1 x10^3/uL (1.0-4.8) 0.1 x10^3/uL (1.0-4.8) Monocytes # (Auto) 0.1 x10^3/uL (0.0-1.1) 0.1 x10^3/uL (0.0-1.1) Eosinophils # (Auto) 0.1 x10^3/uL (0.0-0.7) 0.1 x10^3/uL (0.0-0.7) Basophils # (Auto) 0.0 x10^3/uL (0.0-0.2) 0.0 x10^3/uL (0.0-0.2) Sodium Level 136 mmol/L (136-145) 138 mmol/L (136-145) Potassium Level 4.4 mmol/L (3.5-5.1) 3.8 mmol/L (3.5-5.1) Chloride Level 106 mmol/L (98-107) 106 mmol/L (98-107) Carbon Dioxide Level 19 mmol/L (21-32) 20 mmol/L (21-32) Anion Gap 11 (6-14) 12 (6-14) Blood Urea Nitrogen 45 mg/dL (7-20) 53 mg/dL (7-20) Creatinine 3.0 mg/dL (0.6-1.0) 3.4 mg/dL (0.6-1.0) Estimated GFR (Cockcroft-Gault) 16.0 13.9 Glucose Level 124 mg/dL (70-99) 94 mg/dL (70-99) Calcium Level 6.5 mg/dL (8.5-10.1) 7.3 mg/dL (8.5-10.1) Total Bilirubin 12.1 mg/dL (0.2-1.0) 9.0 mg/dL (0.2-1.0) Direct Bilirubin 10.8 mg/dL (0.0-0.2) Aspartate Amino Transf (AST/SGOT) 30 U/L (15-37) 33 U/L (15-37) Alanine Aminotransferase (ALT/SGPT) 54 U/L (14-59) 50 U/L (14-59) Alkaline Phosphatase 166 U/L (46-116) 219 U/L (46-116) Total Protein 3.6 g/dL (6.4-8.2) 3.8 g/dL (6.4-8.2) Albumin 1.6 g/dL (3.4-5.0) 1.8 g/dL (3.4-5.0) Special Test - Miscellaneous See separate report Ionized Calcium 0.97 mmol/L (1.13-1.32) Reticulocyte Count (auto) 2.7 % (0.5-2.5) BUN/Creatinine Ratio 16 (6-20) Lactate Dehydrogenase 373 U/L (81-234) Albumin/Globulin Ratio 0.9 (1.0-1.7) Laboratory Tests Test 12/04/18 16:05 12/05/18 05:15 Ionized Calcium 0.97 mmol/L (1.13-1.32) White Blood Count 0.9 x10^3/uL (4.0-11.0) Red Blood Count 2.89 x10^6/uL (3.50-5.40) Hemoglobin 7.8 g/dL (12.0-15.5) Hematocrit 23.0 % (36.0-47.0) Mean Corpuscular Volume 80 fL (79-100) Mean Corpuscular Hemoglobin 27 pg (25-35) Mean Corpuscular Hemoglobin Concent 34 g/dL (31-37) Red Cell Distribution Width 16.2 % (11.5-14.5) Platelet Count 66 x10^3/uL (140-400) Neutrophils (%) (Auto) 79 % (31-73) Lymphocytes (%) (Auto) 6 % (24-48) Monocytes (%) (Auto) 6 % (0-9) Eosinophils (%) (Auto) 8 % (0-3) Basophils (%) (Auto) 1 % (0-3) Neutrophils # (Auto) 0.7 x10^3uL (1.8-7.7) Lymphocytes # (Auto) 0.1 x10^3/uL (1.0-4.8) Monocytes # (Auto) 0.1 x10^3/uL (0.0-1.1) Eosinophils # (Auto) 0.1 x10^3/uL (0.0-0.7) Basophils # (Auto) 0.0 x10^3/uL (0.0-0.2) Reticulocyte Count (auto) 2.7 % (0.5-2.5) Sodium Level 138 mmol/L (136-145) Potassium Level 3.8 mmol/L (3.5-5.1) Chloride Level 106 mmol/L (98-107) Carbon Dioxide Level 20 mmol/L (21-32) Anion Gap 12 (6-14) Blood Urea Nitrogen 53 mg/dL (7-20) Creatinine 3.4 mg/dL (0.6-1.0) Estimated GFR (Cockcroft-Gault) 13.9 BUN/Creatinine Ratio 16 (6-20) Glucose Level 94 mg/dL (70-99) Calcium Level 7.3 mg/dL (8.5-10.1) Total Bilirubin 9.0 mg/dL (0.2-1.0) Aspartate Amino Transf (AST/SGOT) 33 U/L (15-37) Alanine Aminotransferase (ALT/SGPT) 50 U/L (14-59) Alkaline Phosphatase 219 U/L (46-116) Lactate Dehydrogenase 373 U/L (81-234) Total Protein 3.8 g/dL (6.4-8.2) Albumin 1.8 g/dL (3.4-5.0) Albumin/Globulin Ratio 0.9 (1.0-1.7) Medications Active Scripts Medications Dose Route/Sig Max Daily Dose Days Date Category Nystatin 100,000 Unit/1 Ml Oral.susp 5 Ml SWSW TID 3 12/01/18 Rx Clotrimazole 45 Gm Cream.appl 1 Estefany VG DAILY 3 12/01/18 Rx Levaquin (Levofloxacin) 500 Mg Tablet 500 Mg PO DAILY06 7 12/01/18 Rx Biotin 10,000 Mcg Capsule 10,000 Mcg PO DAILY 10/10/18 Reported Multivitamins (Multivitamin) 1 Each Tablet 1 Each PO DAILY 05/06/18 Reported Metoprolol Tartrate 25 Mg Tablet 25 Mg PO DAILY 04/17/18 Reported Cymbalta (Duloxetine Hcl) 30 Mg Capsule.dr 1 Cap PO DAILY 04/17/18 Reported Aspirin 81 Mg Tab.chew 1 Tab PO DAILY 02/12/17 Reported Synthroid (Levothyroxine Sodium) 88 Mcg Tablet 100 Mcg PO DAILY 02/11/17 Reported Climara (Estradiol) 1 Each Patch.tdwk 02/11/17 Reported Latanoprost 2.5 Ml Drops 1 Drop EACHEYE QHS 02/11/17 Reported Impression . 1. Septic shock. Etiology could be colitis. She also has a component of hypovolemic shock as well. improving, off levophed. 2. Marginal zone lymphoma, status post chemo in the first week of November and has immunosuppression. 3. No significant history of tobacco use. 4. Acute kidney injury related to shock. making urine 5. Lactic acidosis secondary to septic shock, the levels are improving. 6. Severe protein-calorie malnutrition. Albumin level is 1.7. 7. Elevated liver function test, Bili up to 12. Now improving ? chemo induced liver failure, no obstruction/ GI following. MRCP done today 8. Increased troponin level. Follow Cardiology's recommendations. 9. Pancytopenia, chemo vs sepsis induced. Plan . 1. off Levophed. 2. s/p Aggressive volume resuscitation 3. Monitor renal function. 4. Monitor liver function tests./ MRCP today 5. Follow ID recommendation. 6. Broad spectrum antibiotics per ID. 7. Renal recommendation. 8. Cardiology recommendation. 9. Improved nutritional status. 10. dc sc heparin due to thrombocytopenia 11. Discussed with RN and the entire family. JENIFER HAMLIN MD Dec 05, 2018 12:12
[2018-12-05 14:20] LABS: HISTOPLASMA AG URINE <0.5 (<0.5 ng/mL)
--- NOTE | 2018-12-05 16:07 | RAD ---
Indication: Hyperbilirubinemia and jaundice. History of cholecystectomy. Lymphoma. TECHNIQUE: MRI and MRCP of the abdomen without IV contrast COMPARISON: CT abdomen pelvis from 12/03/2018. FINDINGS: Small bilateral pleural effusions. Heart is normal in size. No pericardial effusion. Mild diffuse hepatic steatosis. Liver is normal in morphology. No suspicious T2 signal in the liver. Spleen is moderately enlarged measuring 18.5 cm without abnormal T2 lesion. Trace perisplenic ascites. No intra or extrahepatic biliary duct dilation. Status post cholecystectomy. No fluid is seen in the gallbladder fossa. Main pancreatic duct is nondilated. No pancreatic or peripancreatic edema. Adrenal glands demonstrate no nodularity. No hydronephrosis. Trace perinephric edema is seen, nonspecific. Bilateral flank body wall edema. No bowel obstruction. IMPRESSION: 1. No intra or extrahepatic biliary duct dilation. 2. Mild hepatic steatosis. Electronically signed by: Jh Bonilla DO (12/05/2018 4:04 PM) [facility]
[2018-12-05 16:13] LABS: PROTHROMBIN TIME PATIENT 13.4 SEC (11.7-14.0)
[2018-12-05] MEDS: CALCIUM CARB/VIT D3 500/200 TABLET. PO SCH (16:43)
[2018-12-05] MEDS: TBO-FILGRASTIM 480 MCG/0.8 ML SYRINGE. SQ SCH (20:50)
[2018-12-05] MEDS: ACETAMINOPHEN 325 MG TABLET. PO PRN (20:55)
[2018-12-06] VITALS (15 sets, daily range): BP systolic 132–177; BP diastolic 48–73
[2018-12-06] MEDS: IV NORMAL SALINE 1000ML BAG 1,000 ML IV SCH ×3 (01:05→18:26)
[2018-12-06] MEDS: SYNTHROID 100 MCG PO SCH (05:57)
[2018-12-06 06:11] LABS: BASO % 0 % (0-3); EOS # 0.2 x10^3/uL (0.0-0.7); EOS % 5 % (0-3); HEMATOCRIT 23.9 % (36.0-47.0); HEMOGLOBIN 8.1 g/dL (12.0-15.5); LYMPH # 0.1 x10^3/uL (1.0-4.8); LYMPH % 3 % (24-48); MEAN CORPUSCULAR HEMOGLOBIN 27 pg (25-35); MEAN CORPUSCULAR HGB CONC 34 g/dL (31-37); MEAN CORPUSCULAR VOLUME 80 fL (79-100); MONO # 0.1 x10^3/uL (0.0-1.1); MONO % 3 % (0-9); NEUT # 3.3 x10^3uL (1.8-7.7); NEUT % 89 % (31-73); PLATELET COUNT 63 x10^3/uL (140-400); RED BLOOD COUNT 3.01 x10^6/uL (3.50-5.40); RED CELL DISTRIBUTION WIDTH 15.8 % (11.5-14.5); WHITE BLOOD COUNT 3.7 x10^3/uL (4.0-11.0)
[2018-12-06 06:42] LABS: ALBUMIN 1.8 g/dL (3.4-5.0); ALBUMIN/GLOBULIN RATIO 0.9 (1.0-1.7); CALCIUM 8.1 mg/dL (8.5-10.1); CREATININE 3.2 mg/dL (0.6-1.0); GFR 14.9; POTASSIUM 3.8 mmol/L (3.5-5.1); TOTAL BILIRUBIN 6.4 mg/dL (0.2-1.0); TOTAL PROTEIN 3.9 g/dL (6.4-8.2)
[2018-12-06] MEDS: ELECTROLYTE (ICU) PROTOCOL. MC SCH (07:33)
[2018-12-06] MEDS: DULoxetine HCL 30 MG CAPSULE.DR PO SCH (08:24)
[2018-12-06] MEDS: ASPIRIN CHEWABLE 81 MG TABLET. PO SCH (08:24)
[2018-12-06] MEDS: MEROPENEM 1 GM in IV NORMAL SALINE 100ML 100 ML IV SCH ×2 (08:24→20:08)
[2018-12-06] MEDS: CALCIUM CARB/VIT D3 500/200 TABLET. PO SCH ×2 (08:24→17:02)
[2018-12-06] MEDS: DAPTOmycin (GENERIC) IVPB 460 MG in IV NORMAL SALINE 50ML 50 ML IV SCH (08:59)
[2018-12-06] MEDS: CLOTRIMAZOLE 1% VAGINAL CREAM 45GM TUBE. VG SCH (09:00)
[2018-12-06] MEDS: CIPROFLOXACIN 400MG PREMIX 200 ML IV SCH ×2 (09:07→21:35)
--- NOTE | 2018-12-06 09:23 | PDOC ---
Infectious Disease Note Subjective Subjective Didn't sleep well last night nonpruritic rash,,mostly RUE Denies F/C/S Denies SOA ROS ROS per HPI otherwise neg Vital Sign Vital Signs Vital Signs Date Time Temp Pulse Resp B/P (MAP) Pulse Ox O2 Delivery O2 Flow Rate FiO2 12/06/18 09:00 98.7 100 14 162/69 (100) 98 Room Air 98.7 Physical Exam PHYSICAL EXAM GENERAL: Propped up in bed, awake, NAD HEENT: Oral cavity clear, no thrush or lesions NECK: Supple LUNGS: Clear. HEART: S1, S2 regular. ABDOMEN: Obese, soft and nontender : [place] EXTREMITIES: No edema or cyanosis. 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 Labs Lab Laboratory Tests Test 12/05/18 15:50 12/06/18 06:00 Prothrombin Time 13.4 SEC (11.7-14.0) Prothromb Time International Ratio 1.1 (0.8-1.1) White Blood Count 3.7 x10^3/uL (4.0-11.0) Red Blood Count 3.01 x10^6/uL (3.50-5.40) Hemoglobin 8.1 g/dL (12.0-15.5) Hematocrit 23.9 % (36.0-47.0) Mean Corpuscular Volume 80 fL (79-100) Mean Corpuscular Hemoglobin 27 pg (25-35) Mean Corpuscular Hemoglobin Concent 34 g/dL (31-37) Red Cell Distribution Width 15.8 % (11.5-14.5) Platelet Count 63 x10^3/uL (140-400) Neutrophils (%) (Auto) 89 % (31-73) Lymphocytes (%) (Auto) 3 % (24-48) Monocytes (%) (Auto) 3 % (0-9) Eosinophils (%) (Auto) 5 % (0-3) Basophils (%) (Auto) 0 % (0-3) Neutrophils # (Auto) 3.3 x10^3uL (1.8-7.7) Lymphocytes # (Auto) 0.1 x10^3/uL (1.0-4.8) Monocytes # (Auto) 0.1 x10^3/uL (0.0-1.1) Eosinophils # (Auto) 0.2 x10^3/uL (0.0-0.7) Basophils # (Auto) 0.0 x10^3/uL (0.0-0.2) Sodium Level 141 mmol/L (136-145) Potassium Level 3.8 mmol/L (3.5-5.1) Chloride Level 109 mmol/L (98-107) Carbon Dioxide Level 22 mmol/L (21-32) Anion Gap 10 (6-14) Blood Urea Nitrogen 46 mg/dL (7-20) Creatinine 3.2 mg/dL (0.6-1.0) Estimated GFR (Cockcroft-Gault) 14.9 BUN/Creatinine Ratio 14 (6-20) Glucose Level 86 mg/dL (70-99) Calcium Level 8.1 mg/dL (8.5-10.1) Total Bilirubin 6.4 mg/dL (0.2-1.0) Aspartate Amino Transf (AST/SGOT) 35 U/L (15-37) Alanine Aminotransferase (ALT/SGPT) 50 U/L (14-59) Alkaline Phosphatase 469 U/L (46-116) Total Protein 3.9 g/dL (6.4-8.2) Albumin 1.8 g/dL (3.4-5.0) Albumin/Globulin Ratio 0.9 (1.0-1.7) MRCP 1. No intra or extrahepatic biliary duct dilation. 2. Mild hepatic steatosis. Micro 12/03/18 Blood Culture - Preliminary, Resulted NO GROWTH AFTER 3 DAYS URINE CULTURE RES 1 Final No growth Objective Assessment Fever,,better Pancytopenia Lactic acidosis Rash ? from [place] Dehydration ELISE Hypotension, now off vasopressors Marginal zone lymphoma ? Hepato/renal syndrome Hyperbilirubinemia,,,improving Allergy PCN and Sulfa Plan Plan of Care Dapto, meropenem and cipro and micafungin fluids Stool studies pending D/w family D/w nursing Patient seen, examined, I agree with above assessment and plan MIKAELA ENNIS APRN Dec 06, 2018 09:23 JOIE CARMONA MD Dec 06, 2018 15:15
--- NOTE | 2018-12-06 10:00 | PDOC ---
PROGRESS NOTES Chief Complaint Chief Complaint on IV antibiotics for neutropenic fever last chemotherapy was November 16 2018 currently admitted icu with fever to 103 POA , diarrhea, nausea, vomiting, fatigue, swelling and jaundice. treated for possible C. difficile colitis with CT scan revealing possible colitis. History of Present Illness History of Present Illness Assessment/Plan Hypovolemic shock vs septic shock, etiology most likely from GI source Lactic acidosis secondary to septic shock extreme morbid obesity Bandemia Splenomegaly. Acute renal failure, vasomotor cr up 3.0 No left-sided hydronephrosis. Urinary bladder is decompressed. No right-sided hydronephrosis. Severe dehydration Transaminitis secondary to hypoperfusion, shock liver would have higher transaminases ,continue to monitor. marginal zone lymphoma History of atrial fibrillation History of essential hypertension bp has been increasing severe protein-caloric malnutrition Elevated troponin due to septic shock. Plan: MRCP r/o retained stone. 12/05 neg iv dapto, meropenem and cipro and micafungin sepsis protocol fluid and volume resuscitation prn albumin nephrology consult continue levophed prn prn pressor support DVT prophylaxis: heparin ionized ca low, will repeat neutropenic precautions, off 12/04 poor appetite lunch tray not touched, nephrology consulted, flat affect 12/05 mrcp pending report oscal bid 12/05 complete chart reviewed up to walk in halls with assist , has left upper molar discomfort x 48 hrs no oral edema seen today 35 MIN CC TIME Vitals Vitals Vital Signs Date Time Temp Pulse Resp B/P (MAP) Pulse Ox O2 Delivery O2 Flow Rate FiO2 12/06/18 09:00 98.7 100 14 162/69 (100) 98 Room Air 98.7 Physical Exam Physical Exam GENERAL: Propped up in bed, awake, NAD HEENT: Oral cavity clear, no thrush or lesions NECK: Supple LUNGS: Clear. HEART: S1, S2 regular. ABDOMEN: Obese, soft and nontender : Cote EXTREMITIES: No edema or cyanosis. 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 General: Alert, Oriented X3, Cooperative, No acute distress Heart: Regular rate, Normal S1, Normal S2 Lungs: Clear Abdomen: No tenderness Extremities: No clubbing, No cyanosis, Other (1+ bilateral LE pitting edema) Skin: No breakdown, No significant lesion Labs LABS Indication: Hyperbilirubinemia and jaundice. History of cholecystectomy. Lymphoma. TECHNIQUE: MRI and MRCP of the abdomen without IV contrast COMPARISON: CT abdomen pelvis from 12/03/2018. FINDINGS: Small bilateral pleural effusions. Heart is normal in size. No pericardial effusion. Mild diffuse hepatic steatosis. Liver is normal in morphology. No suspicious T2 signal in the liver. Spleen is moderately enlarged measuring 18.5 cm without abnormal T2 lesion. Trace perisplenic ascites. No intra or extrahepatic biliary duct dilation. Status post cholecystectomy. No fluid is seen in the gallbladder fossa. Main pancreatic duct is nondilated. No pancreatic or peripancreatic edema. Adrenal glands demonstrate no nodularity. No hydronephrosis. Trace perinephric edema is seen, nonspecific. Bilateral flank body wall edema. No bowel obstruction. IMPRESSION: 1. No intra or extrahepatic biliary duct dilation. 2. Mild hepatic steatosis. Electronically signed by: Jh Alberts DO (12/05/2018 4:04 PM) [facility] DICTATED and SIGNED BY: JH ALBERTS DO DATE: 12/05/18 1604 Laboratory Tests Test 12/05/18 15:50 12/06/18 06:00 Prothrombin Time 13.4 SEC (11.7-14.0) Prothromb Time International Ratio 1.1 (0.8-1.1) White Blood Count 3.7 x10^3/uL (4.0-11.0) Red Blood Count 3.01 x10^6/uL (3.50-5.40) Hemoglobin 8.1 g/dL (12.0-15.5) Hematocrit 23.9 % (36.0-47.0) Mean Corpuscular Volume 80 fL (79-100) Mean Corpuscular Hemoglobin 27 pg (25-35) Mean Corpuscular Hemoglobin Concent 34 g/dL (31-37) Red Cell Distribution Width 15.8 % (11.5-14.5) Platelet Count 63 x10^3/uL (140-400) Neutrophils (%) (Auto) 89 % (31-73) Lymphocytes (%) (Auto) 3 % (24-48) Monocytes (%) (Auto) 3 % (0-9) Eosinophils (%) (Auto) 5 % (0-3) Basophils (%) (Auto) 0 % (0-3) Neutrophils # (Auto) 3.3 x10^3uL (1.8-7.7) Lymphocytes # (Auto) 0.1 x10^3/uL (1.0-4.8) Monocytes # (Auto) 0.1 x10^3/uL (0.0-1.1) Eosinophils # (Auto) 0.2 x10^3/uL (0.0-0.7) Basophils # (Auto) 0.0 x10^3/uL (0.0-0.2) Sodium Level 141 mmol/L (136-145) Potassium Level 3.8 mmol/L (3.5-5.1) Chloride Level 109 mmol/L (98-107) Carbon Dioxide Level 22 mmol/L (21-32) Anion Gap 10 (6-14) Blood Urea Nitrogen 46 mg/dL (7-20) Creatinine 3.2 mg/dL (0.6-1.0) Estimated GFR (Cockcroft-Gault) 14.9 BUN/Creatinine Ratio 14 (6-20) Glucose Level 86 mg/dL (70-99) Calcium Level 8.1 mg/dL (8.5-10.1) Total Bilirubin 6.4 mg/dL (0.2-1.0) Aspartate Amino Transf (AST/SGOT) 35 U/L (15-37) Alanine Aminotransferase (ALT/SGPT) 50 U/L (14-59) Alkaline Phosphatase 469 U/L (46-116) Total Protein 3.9 g/dL (6.4-8.2) Albumin 1.8 g/dL (3.4-5.0) Albumin/Globulin Ratio 0.9 (1.0-1.7) Assessment and Plan Assessmemt and Plan Elevated troponin due to septic shock. Comment Review of Relevant I have reviewed the following items kike (where applicable) has been applied. Labs Laboratory Tests Test 12/04/18 11:00 12/04/18 16:05 12/05/18 05:15 12/05/18 15:50 Special Test - Miscellaneous See separate report Ionized Calcium 0.97 mmol/L (1.13-1.32) White Blood Count 0.9 x10^3/uL (4.0-11.0) Red Blood Count 2.89 x10^6/uL (3.50-5.40) Hemoglobin 7.8 g/dL (12.0-15.5) Hematocrit 23.0 % (36.0-47.0) Mean Corpuscular Volume 80 fL (79-100) Mean Corpuscular Hemoglobin 27 pg (25-35) Mean Corpuscular Hemoglobin Concent 34 g/dL (31-37) Red Cell Distribution Width 16.2 % (11.5-14.5) Platelet Count 66 x10^3/uL (140-400) Neutrophils (%) (Auto) 79 % (31-73) Lymphocytes (%) (Auto) 6 % (24-48) Monocytes (%) (Auto) 6 % (0-9) Eosinophils (%) (Auto) 8 % (0-3) Basophils (%) (Auto) 1 % (0-3) Neutrophils # (Auto) 0.7 x10^3uL (1.8-7.7) Lymphocytes # (Auto) 0.1 x10^3/uL (1.0-4.8) Monocytes # (Auto) 0.1 x10^3/uL (0.0-1.1) Eosinophils # (Auto) 0.1 x10^3/uL (0.0-0.7) Basophils # (Auto) 0.0 x10^3/uL (0.0-0.2) Reticulocyte Count (auto) 2.7 % (0.5-2.5) Sodium Level 138 mmol/L (136-145) Potassium Level 3.8 mmol/L (3.5-5.1) Chloride Level 106 mmol/L (98-107) Carbon Dioxide Level 20 mmol/L (21-32) Anion Gap 12 (6-14) Blood Urea Nitrogen 53 mg/dL (7-20) Creatinine 3.4 mg/dL (0.6-1.0) Estimated GFR (Cockcroft-Gault) 13.9 BUN/Creatinine Ratio 16 (6-20) Glucose Level 94 mg/dL (70-99) Calcium Level 7.3 mg/dL (8.5-10.1) Total Bilirubin 9.0 mg/dL (0.2-1.0) Aspartate Amino Transf (AST/SGOT) 33 U/L (15-37) Alanine Aminotransferase (ALT/SGPT) 50 U/L (14-59) Alkaline Phosphatase 219 U/L (46-116) Lactate Dehydrogenase 373 U/L (81-234) Total Protein 3.8 g/dL (6.4-8.2) Albumin 1.8 g/dL (3.4-5.0) Albumin/Globulin Ratio 0.9 (1.0-1.7) Prothrombin Time 13.4 SEC (11.7-14.0) Prothromb Time International Ratio 1.1 (0.8-1.1) Test 12/06/18 06:00 White Blood Count 3.7 x10^3/uL (4.0-11.0) Red Blood Count 3.01 x10^6/uL (3.50-5.40) Hemoglobin 8.1 g/dL (12.0-15.5) Hematocrit 23.9 % (36.0-47.0) Mean Corpuscular Volume 80 fL (79-100) Mean Corpuscular Hemoglobin 27 pg (25-35) Mean Corpuscular Hemoglobin Concent 34 g/dL (31-37) Red Cell Distribution Width 15.8 % (11.5-14.5) Platelet Count 63 x10^3/uL (140-400) Neutrophils (%) (Auto) 89 % (31-73) Lymphocytes (%) (Auto) 3 % (24-48) Monocytes (%) (Auto) 3 % (0-9) Eosinophils (%) (Auto) 5 % (0-3) Basophils (%) (Auto) 0 % (0-3) Neutrophils # (Auto) 3.3 x10^3uL (1.8-7.7) Lymphocytes # (Auto) 0.1 x10^3/uL (1.0-4.8) Monocytes # (Auto) 0.1 x10^3/uL (0.0-1.1) Eosinophils # (Auto) 0.2 x10^3/uL (0.0-0.7) Basophils # (Auto) 0.0 x10^3/uL (0.0-0.2) Sodium Level 141 mmol/L (136-145) Potassium Level 3.8 mmol/L (3.5-5.1) Chloride Level 109 mmol/L (98-107) Carbon Dioxide Level 22 mmol/L (21-32) Anion Gap 10 (6-14) Blood Urea Nitrogen 46 mg/dL (7-20) Creatinine 3.2 mg/dL (0.6-1.0) Estimated GFR (Cockcroft-Gault) 14.9 BUN/Creatinine Ratio 14 (6-20) Glucose Level 86 mg/dL (70-99) Calcium Level 8.1 mg/dL (8.5-10.1) Total Bilirubin 6.4 mg/dL (0.2-1.0) Aspartate Amino Transf (AST/SGOT) 35 U/L (15-37) Alanine Aminotransferase (ALT/SGPT) 50 U/L (14-59) Alkaline Phosphatase 469 U/L (46-116) Total Protein 3.9 g/dL (6.4-8.2) Albumin 1.8 g/dL (3.4-5.0) Albumin/Globulin Ratio 0.9 (1.0-1.7) Laboratory Tests Test 12/05/18 15:50 12/06/18 06:00 Prothrombin Time 13.4 SEC (11.7-14.0) Prothromb Time International Ratio 1.1 (0.8-1.1) White Blood Count 3.7 x10^3/uL (4.0-11.0) Red Blood Count 3.01 x10^6/uL (3.50-5.40) Hemoglobin 8.1 g/dL (12.0-15.5) Hematocrit 23.9 % (36.0-47.0) Mean Corpuscular Volume 80 fL (79-100) Mean Corpuscular Hemoglobin 27 pg (25-35) Mean Corpuscular Hemoglobin Concent 34 g/dL (31-37) Red Cell Distribution Width 15.8 % (11.5-14.5) Platelet Count 63 x10^3/uL (140-400) Neutrophils (%) (Auto) 89 % (31-73) Lymphocytes (%) (Auto) 3 % (24-48) Monocytes (%) (Auto) 3 % (0-9) Eosinophils (%) (Auto) 5 % (0-3) Basophils (%) (Auto) 0 % (0-3) Neutrophils # (Auto) 3.3 x10^3uL (1.8-7.7) Lymphocytes # (Auto) 0.1 x10^3/uL (1.0-4.8) Monocytes # (Auto) 0.1 x10^3/uL (0.0-1.1) Eosinophils # (Auto) 0.2 x10^3/uL (0.0-0.7) Basophils # (Auto) 0.0 x10^3/uL (0.0-0.2) Sodium Level 141 mmol/L (136-145) Potassium Level 3.8 mmol/L (3.5-5.1) Chloride Level 109 mmol/L (98-107) Carbon Dioxide Level 22 mmol/L (21-32) Anion Gap 10 (6-14) Blood Urea Nitrogen 46 mg/dL (7-20) Creatinine 3.2 mg/dL (0.6-1.0) Estimated GFR (Cockcroft-Gault) 14.9 BUN/Creatinine Ratio 14 (6-20) Glucose Level 86 mg/dL (70-99) Calcium Level 8.1 mg/dL (8.5-10.1) Total Bilirubin 6.4 mg/dL (0.2-1.0) Aspartate Amino Transf (AST/SGOT) 35 U/L (15-37) Alanine Aminotransferase (ALT/SGPT) 50 U/L (14-59) Alkaline Phosphatase 469 U/L (46-116) Total Protein 3.9 g/dL (6.4-8.2) Albumin 1.8 g/dL (3.4-5.0) Albumin/Globulin Ratio 0.9 (1.0-1.7) Microbiology 12/03/18 Blood Culture - Preliminary, Resulted NO GROWTH AFTER 3 DAYS 12/03/18 Urine Culture - Final, Complete 12/03/18 Urine Culture Result 1 (DANIAL) - Final, Complete Medications Current Medications Sodium Chloride 1,000 ml @ 1,000 mls/hr 1X ONCE IV Last administered on at 23:50; Start 12/02/18 at 23:30; Stop 12/03/18 at 00:29; Status DC Sodium Chloride 1,000 ml @ 1,000 mls/hr 1X ONCE IV Last administered on at 00:08; Start 12/02/18 at 23:30; Stop 12/03/18 at 00:29; Status DC Meropenem 1 gm/ Sodium Chloride 100 ml @ 200 mls/hr Q8HRS IV Last administered on 12/02/18at 23:51; Start 12/03/18 at 00:00; Stop 12/03/18 at 03:21 ; Status DC Vancomycin HCl (Vanco Per Pharmacy) 1 each PRN DAILY PRN MC SEE COMMENTS Last administered on 12/03/18at 03:45; Start 12/02/18 at 23:30; Stop 12/03/18 at 07:49 ; Status DC Vancomycin HCl 2 gm/Sodium Chloride 500 ml @ 250 mls/hr 1X ONCE IV Last administered on 12/03/18at 00:12; Start 12/03/18 at 00:30; Stop 12/03/18 at 02:29 ; Status DC Iohexol (Omnipaque 300 Mg/ml) 75 ml 1X ONCE IV Last administered on 12/03/18at 00:41; Start 12/03/18 at 01:00; Stop 12/03/18 at 01:01; Status DC Info (CONTRAST GIVEN -- Rx MONITORING) 1 each PRN DAILY PRN MC SEE COMMENTS; Start 12/03/18 at 00:30; Stop 12/05/18 at 00:29; Status DC Sodium Chloride 1,000 ml @ 1,000 mls/hr 1X ONCE IV Last administered on at 01:08; Start 12/03/18 at 01:00; Stop 12/03/18 at 01:59; Status DC Norepinephrine Bitartrate 250 ml @ 0 mls/hr 1X ONCE IV Last administered on at 01:24; Start 12/03/18 at 01:30; Stop 12/03/18 at 01:31; Status DC Diphenhydramine HCl (Benadryl) 25 mg 1X ONCE IVP Last administered on at 02:01; Start 12/03/18 at 02:00; Stop 12/03/18 at 02:01; Status DC Magnesium Sulfate/ Dextrose 100 ml @ 100 mls/hr 1X ONCE IV Last administered on 12/03/18at 02:08; Start 12/03/18 at 02:00; Stop 12/03/18 at 02:59; Status DC Aspirin (Children'S Aspirin) 324 mg 1X ONCE PO Last administered on 12/03/18at 01:59; Start 12/03/18 at 02:00; Stop 12/03/18 at 02:01; Status DC Sodium Chloride 1,000 ml @ 175 mls/hr Q5H43M IV Last administered on at 04:23; Start 12/03/18 at 03:30; Stop 12/04/18 at 03:29; Status DC Meropenem 1 gm/ Sodium Chloride 100 ml @ 200 mls/hr Q12HR IV Last administered on 12/06/18at 08:24; Start 12/03/18 at 09:00 Vancomycin HCl 1.75 gm/Sodium Chloride 500 ml @ 250 mls/hr Q24H IV ; Start at 00:00; Stop 12/04/18 at 00:00; Status DC Vancomycin HCl (Vancomycin Trough Level) 1 each 1X ONCE MC ; Start 12/04/18 at 23:30; Stop 12/04/18 at 23:30; Status DC Diphenhydramine HCl (Benadryl) 25 mg PRN Q6HRS PRN IVP ITCHING; Start 12/03/18 at 04:45 Iohexol (Omnipaque 300 Mg/ml) 100 ml STK-MED ONCE .ROUTE ; Start 12/03/18 at 06: 01; Stop 12/03/18 at 06:02; Status DC Vancomycin HCl (Vancomycin Oral Solution) 125 mg [id number] PO Last administered on 12/04/18at 20:34; Start 12/03/18 at 09:00; Stop 12/05/18 at 11:39; Status DC Acetaminophen (Tylenol) 650 mg PRN Q6HRS PRN PO Headaches, Temp > 101.5' Last administered on 12/05/18at 20:55; Start 12/03/18 at 07:45 Lorazepam (Ativan) 0.5 mg PRN Q6HRS PRN IV ANXIETY / AGITATION; Start 12/03/18 at 07:45 Ondansetron HCl (Zofran) 4 mg PRN Q6HRS PRN IV NAUSEA/VOMITING Last administered on 12/05/18at 05:47; Start 12/03/18 at 07:45 Info (Icu Electrolyte Protocol) 1 ea DAILY MC Last administered on 12/06/18at 07 :33; Start 12/03/18 at 09:00 Heparin Sodium (Porcine) (Heparin Sodium) 5,000 unit Q8HRS SQ Last administered on 12/05/18 15:18; Start 12/03/18 at 08:00; Stop 12/05/18 at 15:26 ; Status DC Sodium Chloride (Normal Saline Flush) 3 ml QSHIFT PRN IV AFTER MEDS AND BLOOD DRAWS; Start 12/03/18 at 07:45 Oxycodone/ Acetaminophen (Percocet 5/325) 1 tab PRN Q4HRS PRN PO MILD PAIN, 1ST CHOICE; Start 12/03/18 at 07:45 Morphine Sulfate (Morphine Sulfate) 2 mg PRN Q1HR PRN IV PAIN; Start 12/03/18 at 07:45 Aspirin (Children'S Aspirin) 81 mg DAILY PO Last administered on 12/06/18 08: 24; Start 12/03/18 at 09:00 Clotrimazole (Mycelex-7) 1 ger DAILY VG Last administered on 12/04/18 09:36; Start 12/03/18 at 09:00; Stop 12/10/18 at 08:59 Duloxetine HCl (Cymbalta) 30 mg DAILY PO Last administered on 12/06/18 08:24; Start 12/03/18 at 09:00 Levothyroxine Sodium (Synthroid) 100 mcg DAILY06 PO ; Start 12/03/18 at 08:00; Status Cancel Nystatin (Nystatin Oral Susp) 5 ml TID SWSW ; Start 12/03/18 at 09:00; Stop at 10:21; Status DC Ciprofloxacin/ Dextrose 200 ml @ 200 mls/hr Q12HR IV Last administered on 12/06at 09:07; Start 12/03/18 at 09:00 Daptomycin 460 mg/ Sodium Chloride 50 ml @ 100 mls/hr Q24H IV Last administered on 12/06/18 08:59; Start 12/03/18 at 09:00 Micafungin Sodium 100 mg/Dextrose 100 ml @ 100 mls/hr Q24H IV Last administered on 12/05/18 11:08; Start 12/03/18 at 09:00 Non-Formulary Medication 1 ea DAILY06 PO Last administered on 12/06/18at 05:57; Start 12/03/18 at 09:30 Magnesium Sulfate 50 ml @ 25 mls/hr 1X ONCE IV Last administered on 12/03/18at 11:09; Start 12/03/18 at 10:00; Stop 12/03/18 at 11:59; Status DC Norepinephrine Bitartrate 250 ml @ 1.875 mls/ hr CONT PRN IV SEE I/O RECORD Last administered on 12/04/18at 14:24; Start 12/03/18 at 11:15 Sodium Chloride 1,000 ml @ 999 mls/hr Q1H1M IV Last administered on 12/03/18at 14:24; Start 12/03/18 at 13:45; Stop 12/03/18 at 14:32; Status DC Vasopressin 40 unit/Dextrose 102 ml @ 6 mls/hr CONT PRN IV SEE I/O RECORD Last administered on 12/04/18at 09:01; Start 12/03/18 at 15:00 Sodium Chloride 1,000 ml @ 100 mls/hr Q10H IV Last administered on 12/05/18at 11:07; Start 12/04/18 at 20:45; Stop 12/05/18 at 11:34; Status DC Tbo-Filgrastim (Granix) 480 mcg QHS SQ Last administered on 12/05/18at 20:50; Start 12/05/18 at 21:00 Calcium Gluconate (Calcium Gluconate) 1,000 mg 1X ONCE IVP ; Start 12/05/18 at 11:15; Stop 12/05/18 at 11:15; Status DC Calcium/Vitamin D (Oscal D 500mg/ 200uts) 1 tab BIDWMEALS PO Last administered on 12/06/18at 08:24; Start 12/05/18 at 17:00 Calcium Gluconate 1000 mg/Dextrose 110 ml @ 220 mls/hr 1X ONCE IV Last administered on 12/05/18at 12:45; Start 12/05/18 at 12:00; Stop 12/05/18 at 12:29 ; Status DC Sodium Chloride 1,000 ml @ 150 mls/hr Q6H40M IV Last administered on at 08:25; Start 12/05/18 at 11:45 Active Scripts Active Nystatin 100,000 Unit/1 Ml Oral.susp 5 Ml SWSW TID 3 Days Clotrimazole 45 Gm Cream.appl 1 Ger VG DAILY 3 Days Levaquin (Levofloxacin) 500 Mg Tablet 500 Mg PO DAILY06 7 Days Reported Biotin 10,000 Mcg Capsule 10,000 Mcg PO DAILY Multivitamins (Multivitamin) 1 Each Tablet 1 Each PO DAILY Metoprolol Tartrate 25 Mg Tablet 25 Mg PO DAILY Cymbalta (Duloxetine Hcl) 30 Mg Capsule. 1 Cap PO DAILY Aspirin 81 Mg Tab.chew 1 Tab PO DAILY Synthroid (Levothyroxine Sodium) 88 Mcg Tablet 100 Mcg PO DAILY Climara (Estradiol) 1 Each Patch.tdwk Latanoprost 2.5 Ml Drops 1 Drop [facility] Vitals/I & O Vital Sign - Last 24 Hours 12/05/18 12/05/18 12/05/18 12/05/18 11:00 12:00 12:00 13:00 Temp 98.7 98.7 Pulse 100 104 92 Resp 16 17 14 B/P (MAP) 124/55 (78) 133/55 (81) 123/50 (74) Pulse Ox 96 100 100 O2 Delivery Room Air Room Air Room Air Room Air 12/05/18 12/05/18 12/05/18 12/05/18 14:00 15:00 16:00 16:00 Temp 98.0 98.0 Pulse 86 88 94 Resp 15 14 22 B/P (MAP) 136/62 (86) 128/55 (79) 133/52 (79) O2 Delivery Room Air Room Air Room Air Room Air 12/05/18 12/05/18 12/05/18 12/05/18 17:00 18:00 19:00 20:00 Pulse 94 96 94 Resp 18 18 18 B/P (MAP) 137/53 (81) 132/56 (81) 137/53 (81) Pulse Ox 100 O2 Delivery Room Air Room Air Room Air Room Air 12/05/18 12/05/18 12/05/18 12/05/18 20:00 21:00 22:00 23:00 Temp 98.7 98.7 Pulse 102 102 103 102 Resp 18 20 15 15 B/P (MAP) 143/65 (91) 144/57 (86) 149/55 (86) 152/52 (85) O2 Delivery Room Air Room Air Room Air Room Air 12/06/18 12/06/18 12/06/18 12/06/18 00:00 00:00 01:00 02:00 Temp 98.5 98.5 Pulse 102 98 98 Resp 18 12 12 B/P (MAP) 141/67 (91) 152/48 (82) 143/64 (90) O2 Delivery Room Air Room Air Room Air Room Air 12/06/18 12/06/18 12/06/18 12/06/18 03:00 04:00 04:00 04:54 Temp 98.6 98.6 Pulse 100 100 90 Resp 12 14 12 B/P (MAP) 162/66 (98) 177/72 (107) 157/62 (93) O2 Delivery Room Air Room Air Room Air Room Air 12/06/18 12/06/18 12/06/18 12/06/18 06:00 07:00 08:00 09:00 Pulse 95 98 93 Resp 13 19 B/P (MAP) 167/73 (104) 168/62 (97) 159/66 (97) Pulse Ox 100 97 O2 Delivery Room Air Room Air Room Air 12/06/18 09:00 Temp 98.7 98.7 Pulse 100 Resp 14 B/P (MAP) 162/69 (100) Pulse Ox 98 O2 Delivery Room Air Intake and Output 12/05/18 12/05/18 12/06/18 15:00 23:00 07:00 Intake Total 960 ml 1100 ml 1438 ml Output Total 1800 ml 2450 ml 1500 ml Balance -840 ml -1350 ml -62 ml BRIAN DARLING MD Dec 06, 2018 10:00
--- NOTE | 2018-12-06 10:22 | PDOC ---
SUBJECTIVE ROS Asked to see in follow-up of acute kidney injury Patient is feeling much better today. CVS: no Orthopnea, no CP RESP: no SOB, no [place] GI: no Nausea, no Vomiting : no Dysuria, no Urgency - Cote catheter in place OBJECTIVE Vital Signs Vital Signs Date Time Temp Pulse Resp B/P (MAP) Pulse Ox O2 Delivery O2 Flow Rate FiO2 12/06/18 10:00 93 14 158/66 (96) Room Air 12/06/18 09:00 98.7 98 98.7 I & 0 Intake and Output 12/06/18 06:59 Intake Total 3498 ml Output Total 5550 ml Balance -2052 ml Intake Oral 400 ml IV Total 3098 ml Output Urine Total 5550 ml # Voids 100 PHYSICAL EXAM Physical Exam GEN: Awake, Oriented x 3, In no distress EYES: Vision Unchanged, Conjunctiva Normal EN: No EN Drainage, Mucous Membranes moist NECK: no JVD, no JVP, Supple, no Thyromegaly CVS: S1S2, no Murmur, No Gallop, No Rub,+ Edema RESP: min basal Rales, no Rhonchi,no Acc. Muscle Use GI: BS + ve, NO Bruit, Non Tender, Non Distended : no CVA tenderness, no Suprapubic Tenderness DIAGNOSIS/ASSESSMENT Assessment & Plan Acute kidney injury: Appears to be improving currently. Element of ATN as described previously. CPK and LDH have been normal Hypocalcemia: Now appears to have resolved Febrile illness: Sepsis defer to infectious disease for which lists resolved Possible volume depletion: Gentle IV fluids for now Severe hypoalbuminemia: Oral intake is good. Patient is feeling well. We'll wean IV fluids and see if it improves Discussed Plan of Care with family at bedside COMMENT/RELEVANT DATA Meds Current Medications Medications (Trade) Dose Ordered Sig/Angeline Start Time Stop Time Status Last Admin Dose Admin Acetaminophen (Tylenol) 650 mg PRN Q6HRS PRN 12/03/18 07:45 12/05/18 20:55 650 MG Aspirin (Children'S Aspirin) 81 mg DAILY 12/03/18 09:00 12/06/18 08:24 81 MG Calcium Gluconate (Calcium Gluconate) 1,000 mg 1X ONCE 12/05/18 11:15 12/05/18 11:15 DC Calcium Gluconate 1000 mg/Dextrose 110 ml @ 220 mls/hr 1X ONCE 12/05/18 12:00 12/05/18 12:29 DC 12/05/18 12:45 220 MLS/HR Calcium/Vitamin D (Oscal D 500mg/ 200uts) 1 tab BIDWMEALS 12/05/18 17:00 12/06/18 08:24 1 TAB Ciprofloxacin/ Dextrose 200 ml @ 200 mls/hr Q12HR 12/03/18 09:00 12/06/18 09:07 200 MLS/HR Clotrimazole (Mycelex-7) 1 ger DAILY 12/03/18 09:00 12/10/18 08:59 12/04/18 09:36 1 GER Daptomycin 460 mg/ Sodium Chloride 50 ml @ 100 mls/hr Q24H 12/03/18 09:00 12/06/18 08:59 100 MLS/HR Diphenhydramine HCl (Benadryl) 25 mg PRN Q6HRS PRN 12/03/18 04:45 Duloxetine HCl (Cymbalta) 30 mg DAILY 12/03/18 09:00 12/06/18 08:24 30 MG Heparin Sodium (Porcine) (Heparin Sodium) 5,000 unit Q8HRS 12/03/18 08:00 12/05/18 15:26 DC 12/05/18 15:18 5,000 UNIT Info (CONTRAST GIVEN -- Rx MONITORING) 1 each PRN DAILY PRN 12/03/18 00:30 12/05/18 00:29 DC Info ([facility] Electrolyte Protocol) 1 ea DAILY 12/03/18 09:00 12/06/18 07:33 1 EA Iohexol (Omnipaque 300 Mg/ml) 100 ml STK-MED ONCE 12/03/18 06:01 12/03/18 06:02 DC Levothyroxine Sodium (Synthroid) 100 mcg DAILY06 12/03/18 08:00 Cancel Lorazepam (Ativan) 0.5 mg PRN Q6HRS PRN 12/03/18 07:45 Magnesium Sulfate 50 ml @ 25 mls/hr 1X ONCE 12/03/18 10:00 12/03/18 11:59 DC 12/03/18 11:09 25 MLS/HR Magnesium Sulfate/ Dextrose 100 ml @ 100 mls/hr 1X ONCE 12/03/18 02:00 12/03/18 02:59 DC 12/03/18 02:08 100 MLS/HR Meropenem 1 gm/ Sodium Chloride 100 ml @ 200 mls/hr Q12HR 12/03/18 09:00 12/06/18 08:24 200 MLS/HR Micafungin Sodium 100 mg/Dextrose 100 ml @ 100 mls/hr Q24H 12/03/18 09:00 12/05/18 11:08 100 MLS/HR Morphine Sulfate (Morphine Sulfate) 2 mg PRN Q1HR PRN 12/03/18 07:45 Non-Formulary Medication 1 ea DAILY06 12/03/18 09:30 12/06/18 05:57 1 EA Norepinephrine Bitartrate 250 ml @ 1.875 mls/ hr CONT PRN 12/03/18 11:15 12/04/18 14:24 11.63 MLS/HR Nystatin (Nystatin Oral Susp) 5 ml TID 12/03/18 09:00 12/03/18 10:21 DC Ondansetron HCl (Zofran) 4 mg PRN Q6HRS PRN 12/03/18 07:45 12/05/18 05:47 4 MG Oxycodone/ Acetaminophen (Percocet 5/325) 1 tab PRN Q4HRS PRN 12/03/18 07:45 Sodium Chloride 1,000 ml @ 150 mls/hr Q6H40M 12/05/18 11:45 12/06/18 08:25 150 MLS/HR Sodium Chloride (Normal Saline Flush) 3 ml QSHIFT PRN 12/03/18 07:45 Tbo-Filgrastim (Granix) 480 mcg QHS 12/05/18 21:00 12/05/18 20:50 480 MCG Vancomycin HCl (Vanco Per Pharmacy) 1 each PRN DAILY PRN 12/02/18 23:30 12/03/18 07:49 DC 12/03/18 03:45 1 EACH Vancomycin HCl (Vancomycin Trough Level) 1 each 1X ONCE 12/04/18 23:30 12/04/18 23:30 DC Vancomycin HCl (Vancomycin Oral Solution) 125 mg [id number] 12/03/18 09:00 12/05/18 11:39 DC 12/04/18 20:34 125 MG Vancomycin HCl 1.75 gm/Sodium Chloride 500 ml @ 250 mls/hr Q24H 12/04/18 00:00 12/04/18 00:00 DC Vancomycin HCl 2 gm/Sodium Chloride 500 ml @ 250 mls/hr 1X ONCE 12/03/18 00:30 12/03/18 02:29 DC 12/03/18 00:12 150 MLS/HR Vasopressin 40 unit/Dextrose 102 ml @ 6 mls/hr CONT PRN 12/03/18 15:00 12/04/18 09:01 6 MLS/HR Lab Laboratory Tests Test 12/05/18 15:50 12/06/18 06:00 Prothrombin Time 13.4 SEC (11.7-14.0) Prothromb Time International Ratio 1.1 (0.8-1.1) White Blood Count 3.7 x10^3/uL (4.0-11.0) Red Blood Count 3.01 x10^6/uL (3.50-5.40) Hemoglobin 8.1 g/dL (12.0-15.5) Hematocrit 23.9 % (36.0-47.0) Mean Corpuscular Volume 80 fL (79-100) Mean Corpuscular Hemoglobin 27 pg (25-35) Mean Corpuscular Hemoglobin Concent 34 g/dL (31-37) Red Cell Distribution Width 15.8 % (11.5-14.5) Platelet Count 63 x10^3/uL (140-400) Neutrophils (%) (Auto) 89 % (31-73) Lymphocytes (%) (Auto) 3 % (24-48) Monocytes (%) (Auto) 3 % (0-9) Eosinophils (%) (Auto) 5 % (0-3) Basophils (%) (Auto) 0 % (0-3) Neutrophils # (Auto) 3.3 x10^3uL (1.8-7.7) Lymphocytes # (Auto) 0.1 x10^3/uL (1.0-4.8) Monocytes # (Auto) 0.1 x10^3/uL (0.0-1.1) Eosinophils # (Auto) 0.2 x10^3/uL (0.0-0.7) Basophils # (Auto) 0.0 x10^3/uL (0.0-0.2) Sodium Level 141 mmol/L (136-145) Potassium Level 3.8 mmol/L (3.5-5.1) Chloride Level 109 mmol/L (98-107) Carbon Dioxide Level 22 mmol/L (21-32) Anion Gap 10 (6-14) Blood Urea Nitrogen 46 mg/dL (7-20) Creatinine 3.2 mg/dL (0.6-1.0) Estimated GFR (Cockcroft-Gault) 14.9 BUN/Creatinine Ratio 14 (6-20) Glucose Level 86 mg/dL (70-99) Calcium Level 8.1 mg/dL (8.5-10.1) Total Bilirubin 6.4 mg/dL (0.2-1.0) Aspartate Amino Transf (AST/SGOT) 35 U/L (15-37) Alanine Aminotransferase (ALT/SGPT) 50 U/L (14-59) Alkaline Phosphatase 469 U/L (46-116) Total Protein 3.9 g/dL (6.4-8.2) Albumin 1.8 g/dL (3.4-5.0) Albumin/Globulin Ratio 0.9 (1.0-1.7) Results All relevant outside records, renal labs, imaging studies, telemetry/EKG's were reviewed. TAO CARMONA MD Dec 06, 2018 10:22
[2018-12-06] MEDS: MICAFUNGIN 100 MG in IV DEXTROSE 5% 100ML 100 ML IV SCH (10:30)
--- NOTE | 2018-12-06 11:53 | PDOC ---
PULMONARY PROGRESS NOTES Subjective no soa off levophed making urine Vitals Vital Signs Date Time Temp Pulse Resp B/P (MAP) Pulse Ox O2 Delivery O2 Flow Rate FiO2 12/06/18 11:00 94 20 149/62 (91) Room Air 12/06/18 09:00 98.7 98 98.7 ROS: No Nausea, No Chest Pain General: Alert, No acute distress Lungs: Clear Cardiovascular: S1, S2 Abdomen: Soft Neuro Exam: Alert Extremities: Other (jaundice, 1+edema) Skin: Warm, Dry Labs Laboratory Tests Test 12/04/18 16:05 12/05/18 05:15 12/05/18 15:50 12/06/18 06:00 Ionized Calcium 0.97 mmol/L (1.13-1.32) White Blood Count 0.9 x10^3/uL (4.0-11.0) 3.7 x10^3/uL (4.0-11.0) Red Blood Count 2.89 x10^6/uL (3.50-5.40) 3.01 x10^6/uL (3.50-5.40) Hemoglobin 7.8 g/dL (12.0-15.5) 8.1 g/dL (12.0-15.5) Hematocrit 23.0 % (36.0-47.0) 23.9 % (36.0-47.0) Mean Corpuscular Volume 80 fL (79-100) 80 fL (79-100) Mean Corpuscular Hemoglobin 27 pg (25-35) 27 pg (25-35) Mean Corpuscular Hemoglobin Concent 34 g/dL (31-37) 34 g/dL (31-37) Red Cell Distribution Width 16.2 % (11.5-14.5) 15.8 % (11.5-14.5) Platelet Count 66 x10^3/uL (140-400) 63 x10^3/uL (140-400) Neutrophils (%) (Auto) 79 % (31-73) 89 % (31-73) Lymphocytes (%) (Auto) 6 % (24-48) 3 % (24-48) Monocytes (%) (Auto) 6 % (0-9) 3 % (0-9) Eosinophils (%) (Auto) 8 % (0-3) 5 % (0-3) Basophils (%) (Auto) 1 % (0-3) 0 % (0-3) Neutrophils # (Auto) 0.7 x10^3uL (1.8-7.7) 3.3 x10^3uL (1.8-7.7) Lymphocytes # (Auto) 0.1 x10^3/uL (1.0-4.8) 0.1 x10^3/uL (1.0-4.8) Monocytes # (Auto) 0.1 x10^3/uL (0.0-1.1) 0.1 x10^3/uL (0.0-1.1) Eosinophils # (Auto) 0.1 x10^3/uL (0.0-0.7) 0.2 x10^3/uL (0.0-0.7) Basophils # (Auto) 0.0 x10^3/uL (0.0-0.2) 0.0 x10^3/uL (0.0-0.2) Reticulocyte Count (auto) 2.7 % (0.5-2.5) Sodium Level 138 mmol/L (136-145) 141 mmol/L (136-145) Potassium Level 3.8 mmol/L (3.5-5.1) 3.8 mmol/L (3.5-5.1) Chloride Level 106 mmol/L (98-107) 109 mmol/L (98-107) Carbon Dioxide Level 20 mmol/L (21-32) 22 mmol/L (21-32) Anion Gap 12 (6-14) 10 (6-14) Blood Urea Nitrogen 53 mg/dL (7-20) 46 mg/dL (7-20) Creatinine 3.4 mg/dL (0.6-1.0) 3.2 mg/dL (0.6-1.0) Estimated GFR (Cockcroft-Gault) 13.9 14.9 BUN/Creatinine Ratio 16 (6-20) 14 (6-20) Glucose Level 94 mg/dL (70-99) 86 mg/dL (70-99) Calcium Level 7.3 mg/dL (8.5-10.1) 8.1 mg/dL (8.5-10.1) Total Bilirubin 9.0 mg/dL (0.2-1.0) 6.4 mg/dL (0.2-1.0) Aspartate Amino Transf (AST/SGOT) 33 U/L (15-37) 35 U/L (15-37) Alanine Aminotransferase (ALT/SGPT) 50 U/L (14-59) 50 U/L (14-59) Alkaline Phosphatase 219 U/L (46-116) 469 U/L (46-116) Lactate Dehydrogenase 373 U/L (81-234) Total Protein 3.8 g/dL (6.4-8.2) 3.9 g/dL (6.4-8.2) Albumin 1.8 g/dL (3.4-5.0) 1.8 g/dL (3.4-5.0) Albumin/Globulin Ratio 0.9 (1.0-1.7) 0.9 (1.0-1.7) Prothrombin Time 13.4 SEC (11.7-14.0) Prothromb Time International Ratio 1.1 (0.8-1.1) Magnesium Level 2.0 mg/dL (1.8-2.4) Test 12/06/18 11:20 Ionized Calcium 1.22 mmol/L (1.13-1.32) Laboratory Tests Test 12/05/18 15:50 12/06/18 06:00 12/06/18 11:20 Prothrombin Time 13.4 SEC (11.7-14.0) Prothromb Time International Ratio 1.1 (0.8-1.1) White Blood Count 3.7 x10^3/uL (4.0-11.0) Red Blood Count 3.01 x10^6/uL (3.50-5.40) Hemoglobin 8.1 g/dL (12.0-15.5) Hematocrit 23.9 % (36.0-47.0) Mean Corpuscular Volume 80 fL (79-100) Mean Corpuscular Hemoglobin 27 pg (25-35) Mean Corpuscular Hemoglobin Concent 34 g/dL (31-37) Red Cell Distribution Width 15.8 % (11.5-14.5) Platelet Count 63 x10^3/uL (140-400) Neutrophils (%) (Auto) 89 % (31-73) Lymphocytes (%) (Auto) 3 % (24-48) Monocytes (%) (Auto) 3 % (0-9) Eosinophils (%) (Auto) 5 % (0-3) Basophils (%) (Auto) 0 % (0-3) Neutrophils # (Auto) 3.3 x10^3uL (1.8-7.7) Lymphocytes # (Auto) 0.1 x10^3/uL (1.0-4.8) Monocytes # (Auto) 0.1 x10^3/uL (0.0-1.1) Eosinophils # (Auto) 0.2 x10^3/uL (0.0-0.7) Basophils # (Auto) 0.0 x10^3/uL (0.0-0.2) Sodium Level 141 mmol/L (136-145) Potassium Level 3.8 mmol/L (3.5-5.1) Chloride Level 109 mmol/L (98-107) Carbon Dioxide Level 22 mmol/L (21-32) Anion Gap 10 (6-14) Blood Urea Nitrogen 46 mg/dL (7-20) Creatinine 3.2 mg/dL (0.6-1.0) Estimated GFR (Cockcroft-Gault) 14.9 BUN/Creatinine Ratio 14 (6-20) Glucose Level 86 mg/dL (70-99) Calcium Level 8.1 mg/dL (8.5-10.1) Magnesium Level 2.0 mg/dL (1.8-2.4) Total Bilirubin 6.4 mg/dL (0.2-1.0) Aspartate Amino Transf (AST/SGOT) 35 U/L (15-37) Alanine Aminotransferase (ALT/SGPT) 50 U/L (14-59) Alkaline Phosphatase 469 U/L (46-116) Total Protein 3.9 g/dL (6.4-8.2) Albumin 1.8 g/dL (3.4-5.0) Albumin/Globulin Ratio 0.9 (1.0-1.7) Ionized Calcium 1.22 mmol/L (1.13-1.32) Medications Active Scripts Medications Dose Route/Sig Max Daily Dose Days Date Category Nystatin 100,000 Unit/1 Ml Oral.susp 5 Ml SWSW TID 3 12/01/18 Rx Clotrimazole 45 Gm Cream.appl 1 Estefany VG DAILY 3 12/01/18 Rx Levaquin (Levofloxacin) 500 Mg Tablet 500 Mg PO DAILY06 7 12/01/18 Rx Biotin 10,000 Mcg Capsule 10,000 Mcg PO DAILY 10/10/18 Reported Multivitamins (Multivitamin) 1 Each Tablet 1 Each PO DAILY 05/06/18 Reported Metoprolol Tartrate 25 Mg Tablet 25 Mg PO DAILY 04/17/18 Reported Cymbalta (Duloxetine Hcl) 30 Mg Capsule.dr 1 Cap PO DAILY 04/17/18 Reported Aspirin 81 Mg Tab.chew 1 Tab PO DAILY 02/12/17 Reported Synthroid (Levothyroxine Sodium) 88 Mcg Tablet 100 Mcg PO DAILY 02/11/17 Reported Climara (Estradiol) 1 Each Patch.tdwk 02/11/17 Reported Latanoprost 2.5 Ml Drops 1 Drop EACHEYE QHS 02/11/17 Reported Impression . 1. Septic shock. Etiology could be colitis. She also has a component of hypovolemic shock as well. improving, off levophed. 2. Marginal zone lymphoma, status post chemo in the first week of November and has immunosuppression. 3. No significant history of tobacco use. 4. Acute kidney injury related to shock. making urine 5. Lactic acidosis secondary to septic shock, the levels are improving. 6. Severe protein-calorie malnutrition. Albumin level is 1.7. 7. Elevated liver function test, Bili up to 12. Now improving ? chemo induced liver failure, no obstruction/ GI following. MRCP neg 8. Increased troponin level. Follow Cardiology's recommendations. 9. Pancytopenia, chemo vs sepsis induced. Plan . 1. off Levophed. 2. s/p Aggressive volume resuscitation 3. Monitor renal function. 4. Monitor liver function tests./ MRCP neg 5. Follow ID recommendation. 6. Broad spectrum antibiotics per ID. 7. Renal recommendation. 8. Cardiology recommendation. 9. Improved nutritional status. 10. off sc heparin due to thrombocytopenia 11. Discussed with RN and the entire family. improving, transfer to floor JENIFER HAMLIN MD Dec 06, 2018 11:53
--- NOTE | 2018-12-06 14:35 | PDOC ---
G I PROGRESS NOTE Reason for Follow-up Jaundice/chemotherapy induction Subjective Tolerating PO/Jaundice persists Physical Exam Lungs decreased BS CV S1 S2 ABD +BS, soft, nontender Review of Relevant I have reviewed the following items kike (where applicable) has been applied. Labs Laboratory Tests Test 12/04/18 16:05 12/05/18 05:15 12/05/18 15:50 12/06/18 06:00 Ionized Calcium 0.97 mmol/L (1.13-1.32) White Blood Count 0.9 x10^3/uL (4.0-11.0) 3.7 x10^3/uL (4.0-11.0) Red Blood Count 2.89 x10^6/uL (3.50-5.40) 3.01 x10^6/uL (3.50-5.40) Hemoglobin 7.8 g/dL (12.0-15.5) 8.1 g/dL (12.0-15.5) Hematocrit 23.0 % (36.0-47.0) 23.9 % (36.0-47.0) Mean Corpuscular Volume 80 fL (79-100) 80 fL (79-100) Mean Corpuscular Hemoglobin 27 pg (25-35) 27 pg (25-35) Mean Corpuscular Hemoglobin Concent 34 g/dL (31-37) 34 g/dL (31-37) Red Cell Distribution Width 16.2 % (11.5-14.5) 15.8 % (11.5-14.5) Platelet Count 66 x10^3/uL (140-400) 63 x10^3/uL (140-400) Neutrophils (%) (Auto) 79 % (31-73) 89 % (31-73) Lymphocytes (%) (Auto) 6 % (24-48) 3 % (24-48) Monocytes (%) (Auto) 6 % (0-9) 3 % (0-9) Eosinophils (%) (Auto) 8 % (0-3) 5 % (0-3) Basophils (%) (Auto) 1 % (0-3) 0 % (0-3) Neutrophils # (Auto) 0.7 x10^3uL (1.8-7.7) 3.3 x10^3uL (1.8-7.7) Lymphocytes # (Auto) 0.1 x10^3/uL (1.0-4.8) 0.1 x10^3/uL (1.0-4.8) Monocytes # (Auto) 0.1 x10^3/uL (0.0-1.1) 0.1 x10^3/uL (0.0-1.1) Eosinophils # (Auto) 0.1 x10^3/uL (0.0-0.7) 0.2 x10^3/uL (0.0-0.7) Basophils # (Auto) 0.0 x10^3/uL (0.0-0.2) 0.0 x10^3/uL (0.0-0.2) Reticulocyte Count (auto) 2.7 % (0.5-2.5) Sodium Level 138 mmol/L (136-145) 141 mmol/L (136-145) Potassium Level 3.8 mmol/L (3.5-5.1) 3.8 mmol/L (3.5-5.1) Chloride Level 106 mmol/L (98-107) 109 mmol/L (98-107) Carbon Dioxide Level 20 mmol/L (21-32) 22 mmol/L (21-32) Anion Gap 12 (6-14) 10 (6-14) Blood Urea Nitrogen 53 mg/dL (7-20) 46 mg/dL (7-20) Creatinine 3.4 mg/dL (0.6-1.0) 3.2 mg/dL (0.6-1.0) Estimated GFR (Cockcroft-Gault) 13.9 14.9 BUN/Creatinine Ratio 16 (6-20) 14 (6-20) Glucose Level 94 mg/dL (70-99) 86 mg/dL (70-99) Calcium Level 7.3 mg/dL (8.5-10.1) 8.1 mg/dL (8.5-10.1) Total Bilirubin 9.0 mg/dL (0.2-1.0) 6.4 mg/dL (0.2-1.0) Aspartate Amino Transf (AST/SGOT) 33 U/L (15-37) 35 U/L (15-37) Alanine Aminotransferase (ALT/SGPT) 50 U/L (14-59) 50 U/L (14-59) Alkaline Phosphatase 219 U/L (46-116) 469 U/L (46-116) Lactate Dehydrogenase 373 U/L (81-234) Total Protein 3.8 g/dL (6.4-8.2) 3.9 g/dL (6.4-8.2) Albumin 1.8 g/dL (3.4-5.0) 1.8 g/dL (3.4-5.0) Albumin/Globulin Ratio 0.9 (1.0-1.7) 0.9 (1.0-1.7) Prothrombin Time 13.4 SEC (11.7-14.0) Prothromb Time International Ratio 1.1 (0.8-1.1) Magnesium Level 2.0 mg/dL (1.8-2.4) Test 12/06/18 11:20 Ionized Calcium 1.22 mmol/L (1.13-1.32) Laboratory Tests Test 12/05/18 15:50 12/06/18 06:00 12/06/18 11:20 Prothrombin Time 13.4 SEC (11.7-14.0) Prothromb Time International Ratio 1.1 (0.8-1.1) White Blood Count 3.7 x10^3/uL (4.0-11.0) Red Blood Count 3.01 x10^6/uL (3.50-5.40) Hemoglobin 8.1 g/dL (12.0-15.5) Hematocrit 23.9 % (36.0-47.0) Mean Corpuscular Volume 80 fL (79-100) Mean Corpuscular Hemoglobin 27 pg (25-35) Mean Corpuscular Hemoglobin Concent 34 g/dL (31-37) Red Cell Distribution Width 15.8 % (11.5-14.5) Platelet Count 63 x10^3/uL (140-400) Neutrophils (%) (Auto) 89 % (31-73) Lymphocytes (%) (Auto) 3 % (24-48) Monocytes (%) (Auto) 3 % (0-9) Eosinophils (%) (Auto) 5 % (0-3) Basophils (%) (Auto) 0 % (0-3) Neutrophils # (Auto) 3.3 x10^3uL (1.8-7.7) Lymphocytes # (Auto) 0.1 x10^3/uL (1.0-4.8) Monocytes # (Auto) 0.1 x10^3/uL (0.0-1.1) Eosinophils # (Auto) 0.2 x10^3/uL (0.0-0.7) Basophils # (Auto) 0.0 x10^3/uL (0.0-0.2) Sodium Level 141 mmol/L (136-145) Potassium Level 3.8 mmol/L (3.5-5.1) Chloride Level 109 mmol/L (98-107) Carbon Dioxide Level 22 mmol/L (21-32) Anion Gap 10 (6-14) Blood Urea Nitrogen 46 mg/dL (7-20) Creatinine 3.2 mg/dL (0.6-1.0) Estimated GFR (Cockcroft-Gault) 14.9 BUN/Creatinine Ratio 14 (6-20) Glucose Level 86 mg/dL (70-99) Calcium Level 8.1 mg/dL (8.5-10.1) Magnesium Level 2.0 mg/dL (1.8-2.4) Total Bilirubin 6.4 mg/dL (0.2-1.0) Aspartate Amino Transf (AST/SGOT) 35 U/L (15-37) Alanine Aminotransferase (ALT/SGPT) 50 U/L (14-59) Alkaline Phosphatase 469 U/L (46-116) Total Protein 3.9 g/dL (6.4-8.2) Albumin 1.8 g/dL (3.4-5.0) Albumin/Globulin Ratio 0.9 (1.0-1.7) Ionized Calcium 1.22 mmol/L (1.13-1.32) Microbiology 12/03/18 Blood Culture - Preliminary, Resulted NO GROWTH AFTER 3 DAYS 12/04/18 Stool Culture - Final, Resulted 12/04/18 Stool Culture Result 1 (DANIAL) - Final, Resulted 12/04/18 Campylobacter Antigen Assay - Preliminary, Resulted 12/04/18 Campylobactor Result 1 - Preliminary, Resulted 12/04/18 Shiga Toxin Test, Resulted Pending 12/03/18 Urine Culture - Final, Complete 12/03/18 Urine Culture Result 1 (DANIAL) - Final, Complete Medications Current Medications Sodium Chloride 1,000 ml @ 1,000 mls/hr 1X ONCE IV Last administered on at 23:50; Start 12/02/18 at 23:30; Stop 12/03/18 at 00:29; Status DC Sodium Chloride 1,000 ml @ 1,000 mls/hr 1X ONCE IV Last administered on at 00:08; Start 12/02/18 at 23:30; Stop 12/03/18 at 00:29; Status DC Meropenem 1 gm/ Sodium Chloride 100 ml @ 200 mls/hr Q8HRS IV Last administered on 12/02/18at 23:51; Start 12/03/18 at 00:00; Stop 12/03/18 at 03:21 ; Status DC Vancomycin HCl (Vanco Per Pharmacy) 1 each PRN DAILY PRN MC SEE COMMENTS Last administered on 12/03/18at 03:45; Start 12/02/18 at 23:30; Stop 12/03/18 at 07:49 ; Status DC Vancomycin HCl 2 gm/Sodium Chloride 500 ml @ 250 mls/hr 1X ONCE IV Last administered on 12/03/18at 00:12; Start 12/03/18 at 00:30; Stop 12/03/18 at 02:29 ; Status DC Iohexol (Omnipaque 300 Mg/ml) 75 ml 1X ONCE IV Last administered on 12/03/18at 00:41; Start 12/03/18 at 01:00; Stop 12/03/18 at 01:01; Status DC Info (CONTRAST GIVEN -- Rx MONITORING) 1 each PRN DAILY PRN MC SEE COMMENTS; Start 12/03/18 at 00:30; Stop 12/05/18 at 00:29; Status DC Sodium Chloride 1,000 ml @ 1,000 mls/hr 1X ONCE IV Last administered on at 01:08; Start 12/03/18 at 01:00; Stop 12/03/18 at 01:59; Status DC Norepinephrine Bitartrate 250 ml @ 0 mls/hr 1X ONCE IV Last administered on at 01:24; Start 12/03/18 at 01:30; Stop 12/03/18 at 01:31; Status DC Diphenhydramine HCl (Benadryl) 25 mg 1X ONCE IVP Last administered on at 02:01; Start 12/03/18 at 02:00; Stop 12/03/18 at 02:01; Status DC Magnesium Sulfate/ Dextrose 100 ml @ 100 mls/hr 1X ONCE IV Last administered on 12/03/18at 02:08; Start 12/03/18 at 02:00; Stop 12/03/18 at 02:59; Status DC Aspirin (Children'S Aspirin) 324 mg 1X ONCE PO Last administered on 12/03/18at 01:59; Start 12/03/18 at 02:00; Stop 12/03/18 at 02:01; Status DC Sodium Chloride 1,000 ml @ 175 mls/hr Q5H43M IV Last administered on at 04:23; Start 12/03/18 at 03:30; Stop 12/04/18 at 03:29; Status DC Meropenem 1 gm/ Sodium Chloride 100 ml @ 200 mls/hr Q12HR IV Last administered on 12/06/18at 08:24; Start 12/03/18 at 09:00 Vancomycin HCl 1.75 gm/Sodium Chloride 500 ml @ 250 mls/hr Q24H IV ; Start at 00:00; Stop 12/04/18 at 00:00; Status DC Vancomycin HCl (Vancomycin Trough Level) 1 each 1X ONCE MC ; Start 12/04/18 at 23:30; Stop 12/04/18 at 23:30; Status DC Diphenhydramine HCl (Benadryl) 25 mg PRN Q6HRS PRN IVP ITCHING; Start 12/03/18 at 04:45 Iohexol (Omnipaque 300 Mg/ml) 100 ml STK-MED ONCE .ROUTE ; Start 12/03/18 at 06: 01; Stop 12/03/18 at 06:02; Status DC Vancomycin HCl (Vancomycin Oral Solution) 125 mg [id number] PO Last administered on 12/04/18at 20:34; Start 12/03/18 at 09:00; Stop 12/05/18 at 11:39; Status DC Acetaminophen (Tylenol) 650 mg PRN Q6HRS PRN PO Headaches, Temp > 101.5' Last administered on 12/05/18at 20:55; Start 12/03/18 at 07:45 Lorazepam (Ativan) 0.5 mg PRN Q6HRS PRN IV ANXIETY / AGITATION; Start 12/03/18 at 07:45 Ondansetron HCl (Zofran) 4 mg PRN Q6HRS PRN IV NAUSEA/VOMITING Last administered on 12/05/18 05:47; Start 12/03/18 at 07:45 Info (Icu Electrolyte Protocol) 1 ea DAILY MC Last administered on 12/06/18 07 :33; Start 12/03/18 at 09:00 Heparin Sodium (Porcine) (Heparin Sodium) 5,000 unit Q8HRS SQ Last administered on 12/05/18 15:18; Start 12/03/18 at 08:00; Stop 12/05/18 at 15:26 ; Status DC Sodium Chloride (Normal Saline Flush) 3 ml QSHIFT PRN IV AFTER MEDS AND BLOOD DRAWS; Start 12/03/18 at 07:45 Oxycodone/ Acetaminophen (Percocet 5/325) 1 tab PRN Q4HRS PRN PO MILD PAIN, 1ST CHOICE; Start 12/03/18 at 07:45 Morphine Sulfate (Morphine Sulfate) 2 mg PRN Q1HR PRN IV PAIN; Start 12/03/18 at 07:45 Aspirin (Children'S Aspirin) 81 mg DAILY PO Last administered on 12/06/18 08: 24; Start 12/03/18 at 09:00 Clotrimazole (Mycelex-7) 1 estefany DAILY VG Last administered on 12/04/18at 09:36; Start 12/03/18 at 09:00; Stop 12/10/18 at 08:59 Duloxetine HCl (Cymbalta) 30 mg DAILY PO Last administered on 12/06/18 08:24; Start 12/03/18 at 09:00 Levothyroxine Sodium (Synthroid) 100 mcg DAILY06 PO ; Start 12/03/18 at 08:00; Status Cancel Nystatin (Nystatin Oral Susp) 5 ml TID SWSW ; Start 12/03/18 at 09:00; Stop at 10:21; Status DC Ciprofloxacin/ Dextrose 200 ml @ 200 mls/hr Q12HR IV Last administered on 12/06at 09:07; Start 12/03/18 at 09:00 Daptomycin 460 mg/ Sodium Chloride 50 ml @ 100 mls/hr Q24H IV Last administered on 12/06/18 08:59; Start 12/03/18 at 09:00 Micafungin Sodium 100 mg/Dextrose 100 ml @ 100 mls/hr Q24H IV Last administered on 12/06/18at 10:30; Start 12/03/18 at 09:00 Non-Formulary Medication 1 ea DAILY06 PO Last administered on 12/06/18at 05:57; Start 12/03/18 at 09:30 Magnesium Sulfate 50 ml @ 25 mls/hr 1X ONCE IV Last administered on 12/03/18 11:09; Start 12/03/18 at 10:00; Stop 12/03/18 at 11:59; Status DC Norepinephrine Bitartrate 250 ml @ 1.875 mls/ hr CONT PRN IV SEE I/O RECORD Last administered on 12/04/18at 14:24; Start 12/03/18 at 11:15; Stop 12/06/18 at 12:28; Status DC Sodium Chloride 1,000 ml @ 999 mls/hr Q1H1M IV Last administered on 12/03/18at 14:24; Start 12/03/18 at 13:45; Stop 12/03/18 at 14:32; Status DC Vasopressin 40 unit/Dextrose 102 ml @ 6 mls/hr CONT PRN IV SEE I/O RECORD Last administered on 12/04/18 09:01; Start 12/03/18 at 15:00; Stop 12/06/18 at 12:45 ; Status DC Sodium Chloride 1,000 ml @ 100 mls/hr Q10H IV Last administered on 12/05/18at 11:07; Start 12/04/18 at 20:45; Stop 12/05/18 at 11:34; Status DC Tbo-Filgrastim (Granix) 480 mcg QHS SQ Last administered on 12/05/18at 20:50; Start 12/05/18 at 21:00 Calcium Gluconate (Calcium Gluconate) 1,000 mg 1X ONCE IVP ; Start 12/05/18 at 11:15; Stop 12/05/18 at 11:15; Status DC Calcium/Vitamin D (Oscal D 500mg/ 200uts) 1 tab BIDWMEALS PO Last administered on 3/23/19at 08:24; Start 12/05/18 at 17:00 Calcium Gluconate 1000 mg/Dextrose 110 ml @ 220 mls/hr 1X ONCE IV Last administered on 12/05/18at 12:45; Start 12/05/18 at 12:00; Stop 12/05/18 at 12:29 ; Status DC Sodium Chloride 1,000 ml @ 75 mls/hr [id number] IV Last administered on at 08:25; Start 12/05/18 at 11:45 Active Scripts Active Nystatin 100,000 Unit/1 Ml Oral.susp 5 Ml SWSW TID 3 Days Clotrimazole 45 Gm Cream.appl 1 Estefany VG DAILY 3 Days Levaquin (Levofloxacin) 500 Mg Tablet 500 Mg PO DAILY06 7 Days Reported Biotin 10,000 Mcg Capsule 10,000 Mcg PO DAILY Multivitamins (Multivitamin) 1 Each Tablet 1 Each PO DAILY Metoprolol Tartrate 25 Mg Tablet 25 Mg PO DAILY Cymbalta (Duloxetine Hcl) 30 Mg Capsule.dr 1 Cap PO DAILY Aspirin 81 Mg Tab.chew 1 Tab PO DAILY Synthroid (Levothyroxine Sodium) 88 Mcg Tablet 100 Mcg PO DAILY Climara (Estradiol) 1 Each Patch.tdwk Latanoprost 2.5 Ml Drops 1 Drop EACHEYE [facility] Vitals/I & O Vital Sign - Last 24 Hours 12/05/18 12/05/18 12/05/18 12/05/18 15:00 16:00 16:00 17:00 Temp 98.0 98.0 Pulse 88 94 94 Resp 14 22 18 B/P (MAP) 128/55 (79) 133/52 (79) 137/53 (81) Pulse Ox 100 O2 Delivery Room Air Room Air Room Air Room Air 12/05/18 12/05/18 12/05/18 12/05/18 18:00 19:00 20:00 20:00 Temp 98.7 98.7 Pulse 96 94 102 Resp 18 18 18 B/P (MAP) 132/56 (81) 137/53 (81) 143/65 (91) O2 Delivery Room Air Room Air Room Air Room Air 12/05/18 12/05/18 12/05/18 12/06/18 21:00 22:00 23:00 00:00 Pulse 102 103 102 Resp 20 15 15 B/P (MAP) 144/57 (86) 149/55 (86) 152/52 (85) O2 Delivery Room Air Room Air Room Air Room Air 12/06/18 12/06/18 12/06/18 12/06/18 00:00 01:00 02:00 03:00 Temp 98.5 98.5 Pulse 102 98 98 100 Resp 18 12 12 12 B/P (MAP) 141/67 (91) 152/48 (82) 143/64 (90) 162/66 (98) O2 Delivery Room Air Room Air Room Air Room Air 12/06/18 12/06/18 12/06/18 12/06/18 04:00 04:00 04:54 06:00 Temp 98.6 98.6 Pulse 100 90 95 Resp 14 12 12 B/P (MAP) 177/72 (107) 157/62 (93) 167/73 (104) O2 Delivery Room Air Room Air Room Air Room Air 12/06/18 12/06/18 12/06/18 12/06/18 07:00 08:00 09:00 09:00 Temp 98.7 98.7 Pulse 98 93 100 Resp 13 19 14 B/P (MAP) 168/62 (97) 159/66 (97) 162/69 (100) Pulse Ox 100 97 98 O2 Delivery Room Air Room Air Room Air 12/06/18 12/06/18 10:00 11:00 Pulse 93 94 Resp 14 20 B/P (MAP) 158/66 (96) 149/62 (91) O2 Delivery Room Air Room Air Intake and Output 12/05/18 12/05/18 12/06/18 14:59 22:59 06:59 Intake Total 960 ml 1000 ml 1538 ml Output Total 1500 ml 2400 ml 1650 ml Balance -540 ml -1400 ml -112 ml Problem List Jaundice- s/p steven, cholestasis continues to improve, MRCp without obstruction , advance diet and activity as tolerated ANDREZ MUÑIZ MD Dec 06, 2018 14:35
[2018-12-06] MEDS: ACETAMINOPHEN 325 MG TABLET. PO PRN (20:07)
[2018-12-06] MEDS: TBO-FILGRASTIM 480 MCG/0.8 ML SYRINGE. SQ SCH (21:35)
[2018-12-07 03:19] VITALS: BP 131/67
[2018-12-07] MEDS: IV NORMAL SALINE 1000ML BAG 1,000 ML IV SCH (05:35)
[2018-12-07] MEDS: SYNTHROID 100 MCG PO SCH (05:35)
[2018-12-07 05:54] LABS: BASO % 0 % (0-3); EOS # 0.2 x10^3/uL (0.0-0.7); EOS % 4 % (0-3); HEMATOCRIT 25.6 % (36.0-47.0); HEMOGLOBIN 8.5 g/dL (12.0-15.5); LYMPH # 0.2 x10^3/uL (1.0-4.8); LYMPH % 4 % (24-48); MEAN CORPUSCULAR HEMOGLOBIN 27 pg (25-35); MEAN CORPUSCULAR HGB CONC 33 g/dL (31-37); MEAN CORPUSCULAR VOLUME 81 fL (79-100); MONO # 0.3 x10^3/uL (0.0-1.1); MONO % 5 % (0-9); NEUT # 4.8 x10^3uL (1.8-7.7); NEUT % 87 % (31-73); PLATELET COUNT 63 x10^3/uL (140-400); RED BLOOD COUNT 3.17 x10^6/uL (3.50-5.40); RED CELL DISTRIBUTION WIDTH 16.2 % (11.5-14.5); WHITE BLOOD COUNT 5.6 x10^3/uL (4.0-11.0)
[2018-12-07 06:12] LABS: ALBUMIN 1.8 g/dL (3.4-5.0); ALBUMIN/GLOBULIN RATIO 0.8 (1.0-1.7); CALCIUM 8.3 mg/dL (8.5-10.1); CREATININE 2.8 mg/dL (0.6-1.0); GFR 17.4; POTASSIUM 3.7 mmol/L (3.5-5.1); TOTAL BILIRUBIN 3.5 mg/dL (0.2-1.0); TOTAL PROTEIN 4.2 g/dL (6.4-8.2)
[2018-12-07 07:00] VITALS: BP 143/70
[2018-12-07] MEDS: CLOTRIMAZOLE 1% VAGINAL CREAM 45GM TUBE. VG SCH (08:39)
[2018-12-07] MEDS: MEROPENEM 1 GM in IV NORMAL SALINE 100ML 100 ML IV SCH ×2 (08:40→20:27)
[2018-12-07] MEDS: ELECTROLYTE (ICU) PROTOCOL. MC SCH (09:00)
[2018-12-07] MEDS: ASPIRIN CHEWABLE 81 MG TABLET. PO SCH (09:13)
[2018-12-07] MEDS: CALCIUM CARB/VIT D3 500/200 TABLET. PO SCH ×2 (09:13→17:00)
[2018-12-07] MEDS: DULoxetine HCL 30 MG CAPSULE.DR PO SCH (09:14)
[2018-12-07] MEDS: CIPROFLOXACIN 400MG PREMIX 200 ML IV SCH (09:15)
--- NOTE | 2018-12-07 09:25 | PDOC ---
PULMONARY PROGRESS NOTES Subjective no soa continues to improve Vitals Vital Signs Date Time Temp Pulse Resp B/P (MAP) Pulse Ox O2 Delivery O2 Flow Rate FiO2 12/07/18 07:00 98.5 102 18 143/70 (94) 97 Room Air 98.5 ROS: No Nausea, No Chest Pain General: Alert, No acute distress Lungs: Clear Cardiovascular: S1, S2 Abdomen: Soft Neuro Exam: Alert Extremities: Other (jaundice, 1+edema) Skin: Warm, Dry Labs Laboratory Tests Test 12/05/18 15:50 12/06/18 06:00 12/06/18 11:20 12/07/18 05:45 Prothrombin Time 13.4 SEC (11.7-14.0) Prothromb Time International Ratio 1.1 (0.8-1.1) White Blood Count 3.7 x10^3/uL (4.0-11.0) 5.6 x10^3/uL (4.0-11.0) Red Blood Count 3.01 x10^6/uL (3.50-5.40) 3.17 x10^6/uL (3.50-5.40) Hemoglobin 8.1 g/dL (12.0-15.5) 8.5 g/dL (12.0-15.5) Hematocrit 23.9 % (36.0-47.0) 25.6 % (36.0-47.0) Mean Corpuscular Volume 80 fL (79-100) 81 fL (79-100) Mean Corpuscular Hemoglobin 27 pg (25-35) 27 pg (25-35) Mean Corpuscular Hemoglobin Concent 34 g/dL (31-37) 33 g/dL (31-37) Red Cell Distribution Width 15.8 % (11.5-14.5) 16.2 % (11.5-14.5) Platelet Count 63 x10^3/uL (140-400) 63 x10^3/uL (140-400) Neutrophils (%) (Auto) 89 % (31-73) 87 % (31-73) Lymphocytes (%) (Auto) 3 % (24-48) 4 % (24-48) Monocytes (%) (Auto) 3 % (0-9) 5 % (0-9) Eosinophils (%) (Auto) 5 % (0-3) 4 % (0-3) Basophils (%) (Auto) 0 % (0-3) 0 % (0-3) Neutrophils # (Auto) 3.3 x10^3uL (1.8-7.7) 4.8 x10^3uL (1.8-7.7) Lymphocytes # (Auto) 0.1 x10^3/uL (1.0-4.8) 0.2 x10^3/uL (1.0-4.8) Monocytes # (Auto) 0.1 x10^3/uL (0.0-1.1) 0.3 x10^3/uL (0.0-1.1) Eosinophils # (Auto) 0.2 x10^3/uL (0.0-0.7) 0.2 x10^3/uL (0.0-0.7) Basophils # (Auto) 0.0 x10^3/uL (0.0-0.2) 0.0 x10^3/uL (0.0-0.2) Sodium Level 141 mmol/L (136-145) 146 mmol/L (136-145) Potassium Level 3.8 mmol/L (3.5-5.1) 3.7 mmol/L (3.5-5.1) Chloride Level 109 mmol/L (98-107) 112 mmol/L (98-107) Carbon Dioxide Level 22 mmol/L (21-32) 25 mmol/L (21-32) Anion Gap 10 (6-14) 9 (6-14) Blood Urea Nitrogen 46 mg/dL (7-20) 38 mg/dL (7-20) Creatinine 3.2 mg/dL (0.6-1.0) 2.8 mg/dL (0.6-1.0) Estimated GFR (Cockcroft-Gault) 14.9 17.4 BUN/Creatinine Ratio 14 (6-20) 14 (6-20) Glucose Level 86 mg/dL (70-99) 89 mg/dL (70-99) Calcium Level 8.1 mg/dL (8.5-10.1) 8.3 mg/dL (8.5-10.1) Magnesium Level 2.0 mg/dL (1.8-2.4) Total Bilirubin 6.4 mg/dL (0.2-1.0) 3.5 mg/dL (0.2-1.0) Aspartate Amino Transf (AST/SGOT) 35 U/L (15-37) 36 U/L (15-37) Alanine Aminotransferase (ALT/SGPT) 50 U/L (14-59) 51 U/L (14-59) Alkaline Phosphatase 469 U/L (46-116) 593 U/L (46-116) Total Protein 3.9 g/dL (6.4-8.2) 4.2 g/dL (6.4-8.2) Albumin 1.8 g/dL (3.4-5.0) 1.8 g/dL (3.4-5.0) Albumin/Globulin Ratio 0.9 (1.0-1.7) 0.8 (1.0-1.7) Ionized Calcium 1.22 mmol/L (1.13-1.32) Laboratory Tests Test 12/06/18 11:20 12/07/18 05:45 Ionized Calcium 1.22 mmol/L (1.13-1.32) White Blood Count 5.6 x10^3/uL (4.0-11.0) Red Blood Count 3.17 x10^6/uL (3.50-5.40) Hemoglobin 8.5 g/dL (12.0-15.5) Hematocrit 25.6 % (36.0-47.0) Mean Corpuscular Volume 81 fL (79-100) Mean Corpuscular Hemoglobin 27 pg (25-35) Mean Corpuscular Hemoglobin Concent 33 g/dL (31-37) Red Cell Distribution Width 16.2 % (11.5-14.5) Platelet Count 63 x10^3/uL (140-400) Neutrophils (%) (Auto) 87 % (31-73) Lymphocytes (%) (Auto) 4 % (24-48) Monocytes (%) (Auto) 5 % (0-9) Eosinophils (%) (Auto) 4 % (0-3) Basophils (%) (Auto) 0 % (0-3) Neutrophils # (Auto) 4.8 x10^3uL (1.8-7.7) Lymphocytes # (Auto) 0.2 x10^3/uL (1.0-4.8) Monocytes # (Auto) 0.3 x10^3/uL (0.0-1.1) Eosinophils # (Auto) 0.2 x10^3/uL (0.0-0.7) Basophils # (Auto) 0.0 x10^3/uL (0.0-0.2) Sodium Level 146 mmol/L (136-145) Potassium Level 3.7 mmol/L (3.5-5.1) Chloride Level 112 mmol/L (98-107) Carbon Dioxide Level 25 mmol/L (21-32) Anion Gap 9 (6-14) Blood Urea Nitrogen 38 mg/dL (7-20) Creatinine 2.8 mg/dL (0.6-1.0) Estimated GFR (Cockcroft-Gault) 17.4 BUN/Creatinine Ratio 14 (6-20) Glucose Level 89 mg/dL (70-99) Calcium Level 8.3 mg/dL (8.5-10.1) Total Bilirubin 3.5 mg/dL (0.2-1.0) Aspartate Amino Transf (AST/SGOT) 36 U/L (15-37) Alanine Aminotransferase (ALT/SGPT) 51 U/L (14-59) Alkaline Phosphatase 593 U/L (46-116) Total Protein 4.2 g/dL (6.4-8.2) Albumin 1.8 g/dL (3.4-5.0) Albumin/Globulin Ratio 0.8 (1.0-1.7) Medications Active Scripts Medications Dose Route/Sig Max Daily Dose Days Date Category Nystatin 100,000 Unit/1 Ml Oral.susp 5 Ml SWSW TID 3 12/01/18 Rx Clotrimazole 45 Gm Cream.appl 1 Estefany VG DAILY 3 12/01/18 Rx Levaquin (Levofloxacin) 500 Mg Tablet 500 Mg PO DAILY06 7 12/01/18 Rx Biotin 10,000 Mcg Capsule 10,000 Mcg PO DAILY 10/10/18 Reported Multivitamins (Multivitamin) 1 Each Tablet 1 Each PO DAILY 05/06/18 Reported Metoprolol Tartrate 25 Mg Tablet 25 Mg PO DAILY 04/17/18 Reported Cymbalta (Duloxetine Hcl) 30 Mg Capsule.dr 1 Cap PO DAILY 04/17/18 Reported Aspirin 81 Mg Tab.chew 1 Tab PO DAILY 02/12/17 Reported Synthroid (Levothyroxine Sodium) 88 Mcg Tablet 100 Mcg PO DAILY 02/11/17 Reported Climara (Estradiol) 1 Each Patch.tdwk 02/11/17 Reported Latanoprost 2.5 Ml Drops 1 Drop EACHEYE QHS 02/11/17 Reported Impression . 1. Septic shock. likely due to colitis. She also has a component of hypovolemic shock as well. improved, off levophed. 2. Marginal zone lymphoma, status post chemo in the first week of November and has immunosuppression. 3. No significant history of tobacco use. 4. Acute kidney injury related to shock. improving 5. Lactic acidosis secondary to septic shock, the levels are improving. 6. Severe protein-calorie malnutrition. Albumin level is 1.7. 7. Elevated liver function test, Bili up to 12. Now sig improving ? chemo induced liver failure, no obstruction/ GI following. MRCP neg 8. Increased troponin level. Follow Cardiology's recommendations. 9. Pancytopenia, chemo vs sepsis induced. improving Plan . 1. Continues to improve 2. prn oxygen 3. Monitor renal function. 4. Monitor liver function tests./ MRCP neg 5. Follow ID recommendation. 6. Broad spectrum antibiotics per ID. 7. Renal recommendation. 8. Cardiology recommendation. 9. Improved nutritional status. 10. off sc heparin due to thrombocytopenia 11. Discussed with RN and the entire family. la nena, JENIFER HAMLIN MD Dec 07, 2018 09:25
--- NOTE | 2018-12-07 10:19 | PDOC ---
Infectious Disease Note Subjective Subjective Feeling well Planning to get up and walk this morning Rash is better Denies F/C/N/V/D/SOA ROS ROS per HPI Vital Sign Vital Signs Vital Signs Date Time Temp Pulse Resp B/P (MAP) Pulse Ox O2 Delivery O2 Flow Rate FiO2 12/07/18 08:00 Room Air 12/07/18 07:00 98.5 102 18 143/70 (94) 97 98.5 Physical Exam PHYSICAL EXAM GENERAL: Propped up in bed, alert, NAD HEENT: Oral cavity clear, no thrush or lesions NECK: Supple LUNGS: Clear. HEART: S1, S2 regular. ABDOMEN: Obese, soft and nontender : [place] EXTREMITIES: Trace edema lower extremities , bilaterally. 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 Labs Lab Laboratory Tests Test 12/06/18 11:20 12/07/18 05:45 Ionized Calcium 1.22 mmol/L (1.13-1.32) White Blood Count 5.6 x10^3/uL (4.0-11.0) Red Blood Count 3.17 x10^6/uL (3.50-5.40) Hemoglobin 8.5 g/dL (12.0-15.5) Hematocrit 25.6 % (36.0-47.0) Mean Corpuscular Volume 81 fL (79-100) Mean Corpuscular Hemoglobin 27 pg (25-35) Mean Corpuscular Hemoglobin Concent 33 g/dL (31-37) Red Cell Distribution Width 16.2 % (11.5-14.5) Platelet Count 63 x10^3/uL (140-400) Neutrophils (%) (Auto) 87 % (31-73) Lymphocytes (%) (Auto) 4 % (24-48) Monocytes (%) (Auto) 5 % (0-9) Eosinophils (%) (Auto) 4 % (0-3) Basophils (%) (Auto) 0 % (0-3) Neutrophils # (Auto) 4.8 x10^3uL (1.8-7.7) Lymphocytes # (Auto) 0.2 x10^3/uL (1.0-4.8) Monocytes # (Auto) 0.3 x10^3/uL (0.0-1.1) Eosinophils # (Auto) 0.2 x10^3/uL (0.0-0.7) Basophils # (Auto) 0.0 x10^3/uL (0.0-0.2) Sodium Level 146 mmol/L (136-145) Potassium Level 3.7 mmol/L (3.5-5.1) Chloride Level 112 mmol/L (98-107) Carbon Dioxide Level 25 mmol/L (21-32) Anion Gap 9 (6-14) Blood Urea Nitrogen 38 mg/dL (7-20) Creatinine 2.8 mg/dL (0.6-1.0) Estimated GFR (Cockcroft-Gault) 17.4 BUN/Creatinine Ratio 14 (6-20) Glucose Level 89 mg/dL (70-99) Calcium Level 8.3 mg/dL (8.5-10.1) Total Bilirubin 3.5 mg/dL (0.2-1.0) Aspartate Amino Transf (AST/SGOT) 36 U/L (15-37) Alanine Aminotransferase (ALT/SGPT) 51 U/L (14-59) Alkaline Phosphatase 593 U/L (46-116) Total Protein 4.2 g/dL (6.4-8.2) Albumin 1.8 g/dL (3.4-5.0) Albumin/Globulin Ratio 0.8 (1.0-1.7) Micro 12/03/18 Blood Culture - Preliminary, Resulted NO GROWTH AFTER 4 DAYS URINE CULTURE RES 1 Final No growth STOOL CULT RES 1 Final No growth CAMPY Preliminary Preliminary report CAMPY RES 1 Preliminary Comment No Campylobacter species isolated. SHIGA TOXIN Final Negative Objective Assessment Fever,,better Pancytopenia,, WBC count now WNL Lactic acidosis Rash ? from [place], resolving Dehydration ELISE Hypotension, now off vasopressors Marginal zone lymphoma ? Hepato/renal syndrome Hyperbilirubinemia,,,improving Allergy PCN and Sulfa Plan Plan of Care Dapto, meropenem and micafungin DC Cipro Stool studies neg add CPK morning labs Supportive care f/u u/s of LUE D/w family D/w nursing Patient seen, examined, I agree with above. Assessment and plan was formulated with SAP BW BI DEVELOPER. MIKAELA ENNIS APRN Dec 07, 2018 10:19 JOIE CARMONA MD Dec 07, 2018 15:41
[2018-12-07] MEDS: MICAFUNGIN 100 MG in IV DEXTROSE 5% 100ML 100 ML IV SCH (10:23)
--- NOTE | 2018-12-07 10:42 | PDOC ---
SUBJECTIVE ROS Follow-up of acute renal insufficiency Patient claims she's feeling much better today. She's been urinating adequately. CVS: no Orthopnea, no CP RESP: no SOB, no [place] GI: no Nausea, no Vomiting : no Dysuria, no Urgency OBJECTIVE Vital Signs Vital Signs Date Time Temp Pulse Resp B/P (MAP) Pulse Ox O2 Delivery O2 Flow Rate FiO2 12/07/18 08:00 Room Air 12/07/18 07:00 98.5 102 18 143/70 (94) 97 98.5 I & 0 Intake and Output 12/07/18 06:59 Intake Total 3071 ml Output Total 4620 ml Balance -1549 ml Intake Oral 2050 ml IV Total 1021 ml Output Urine Total 4620 ml PHYSICAL EXAM Physical Exam GEN: Awake, Oriented x 3, In no distress EYES: Vision Unchanged, Conjunctiva Normal EN: No EN Drainage, Mucous Membranes moist NECK: no JVD, no JVP, Supple, no Thyromegaly CVS: S1S2, no Murmur, No Gallop, No Rub,+ Edema RESP: min basal Rales, no Rhonchi,no Acc. Muscle Use GI: BS + ve, NO Bruit, Non Tender, Non Distended : no CVA tenderness, no Suprapubic Tenderness DIAGNOSIS/ASSESSMENT Assessment & Plan Acute kidney injury: Creatinine Appears to be improving currently. Element of ATN as described previously. CPK and LDH have been normal. Discontinue Cote catheter if not needed and patient is able to ambulate to the bathroom Hyper natremia: Stop IV fluids and reevaluate. Febrile illness: Sepsis defer to infectious disease Possible volume depletion: Appears to have resolved. By mouth intake is good. Watch off of IV fluids Severe hypoalbuminemia: Oral intake is good. Patient is feeling well. We'll stop IV fluids and see if it improves Discussed Plan of Care with family at bedside COMMENT/RELEVANT DATA Meds Current Medications Medications (Trade) Dose Ordered Sig/Angeline Start Time Stop Time Status Last Admin Dose Admin Acetaminophen (Tylenol) 650 mg PRN Q6HRS PRN 12/03/18 07:45 12/06/18 20:07 650 MG Aspirin (Children'S Aspirin) 81 mg DAILY 12/03/18 09:00 12/07/18 09:13 81 MG Calcium Gluconate (Calcium Gluconate) 1,000 mg 1X ONCE 12/05/18 11:15 12/05/18 11:15 DC Calcium Gluconate 1000 mg/Dextrose 110 ml @ 220 mls/hr 1X ONCE 12/05/18 12:00 12/05/18 12:29 DC 12/05/18 12:45 220 MLS/HR Calcium/Vitamin D (Oscal D 500mg/ 200uts) 1 tab [id number] 12/05/18 17:00 12/07/18 09:13 1 TAB Ciprofloxacin/ Dextrose 200 ml @ 200 mls/hr Q12HR 12/03/18 09:00 12/07/18 09:15 200 MLS/HR Clotrimazole (Mycelex-7) 1 ger DAILY 12/03/18 09:00 12/10/18 08:59 12/04/18 09:36 1 GER Daptomycin 460 mg/ Sodium Chloride 50 ml @ 100 mls/hr Q24H 12/03/18 09:00 12/06/18 08:59 100 MLS/HR Diphenhydramine HCl (Benadryl) 25 mg PRN Q6HRS PRN 12/03/18 04:45 Duloxetine HCl (Cymbalta) 30 mg DAILY 12/03/18 09:00 12/07/18 09:14 30 MG Heparin Sodium (Porcine) (Heparin Sodium) 5,000 unit Q8HRS 12/03/18 08:00 12/05/18 15:26 DC 12/05/18 15:18 5,000 UNIT Info (CONTRAST GIVEN -- Rx MONITORING) 1 each PRN DAILY PRN 12/03/18 00:30 12/05/18 00:29 DC Info (Icu Electrolyte Protocol) 1 ea DAILY 12/03/18 09:00 12/06/18 07:33 1 EA Iohexol (Omnipaque 300 Mg/ml) 100 ml STK-MED ONCE 12/03/18 06:01 12/03/18 06:02 DC Levothyroxine Sodium (Synthroid) 100 mcg DAILY06 12/03/18 08:00 Cancel Lorazepam (Ativan) 0.5 mg PRN Q6HRS PRN 12/03/18 07:45 Magnesium Sulfate 50 ml @ 25 mls/hr 1X ONCE 12/03/18 10:00 12/03/18 11:59 DC 12/03/18 11:09 25 MLS/HR Magnesium Sulfate/ Dextrose 100 ml @ 100 mls/hr 1X ONCE 12/03/18 02:00 12/03/18 02:59 DC 12/03/18 02:08 100 MLS/HR Meropenem 1 gm/ Sodium Chloride 100 ml @ 200 mls/hr Q12HR 12/03/18 09:00 12/07/18 08:40 200 MLS/HR Micafungin Sodium 100 mg/Dextrose 100 ml @ 100 mls/hr Q24H 12/03/18 09:00 12/07/18 10:23 100 MLS/HR Morphine Sulfate (Morphine Sulfate) 2 mg PRN Q1HR PRN 12/03/18 07:45 Non-Formulary Medication 1 ea DAILY06 12/03/18 09:30 12/07/18 05:35 1 EA Norepinephrine Bitartrate 250 ml @ 1.875 mls/ hr CONT PRN 12/03/18 11:15 12/06/18 12:28 DC 12/04/18 14:24 11.63 MLS/HR Nystatin (Nystatin Oral Susp) 5 ml TID 12/03/18 09:00 12/03/18 10:21 DC Ondansetron HCl (Zofran) 4 mg PRN Q6HRS PRN 12/03/18 07:45 12/05/18 05:47 4 MG Oxycodone/ Acetaminophen (Percocet 5/325) 1 tab PRN Q4HRS PRN 12/03/18 07:45 Sodium Chloride 1,000 ml @ 75 mls/hr [id number] 12/05/18 11:45 12/07/18 10:00 DC 12/07/18 05:35 75 MLS/HR Sodium Chloride (Normal Saline Flush) 3 ml QSHIFT PRN 12/03/18 07:45 Tbo-Filgrastim (Granix) 480 mcg QHS 12/05/18 21:00 12/06/18 21:35 480 MCG Vancomycin HCl (Vanco Per Pharmacy) 1 each PRN DAILY PRN 12/02/18 23:30 12/03/18 07:49 DC 12/03/18 03:45 1 EACH Vancomycin HCl (Vancomycin Trough Level) 1 each 1X ONCE 12/04/18 23:30 12/04/18 23:30 DC Vancomycin HCl (Vancomycin Oral Solution) 125 mg [id number] 12/03/18 09:00 12/05/18 11:39 DC 12/04/18 20:34 125 MG Vancomycin HCl 1.75 gm/Sodium Chloride 500 ml @ 250 mls/hr Q24H 12/04/18 00:00 12/04/18 00:00 DC Vancomycin HCl 2 gm/Sodium Chloride 500 ml @ 250 mls/hr 1X ONCE 12/03/18 00:30 12/03/18 02:29 DC 12/03/18 00:12 150 MLS/HR Vasopressin 40 unit/Dextrose 102 ml @ 6 mls/hr CONT PRN 12/03/18 15:00 12/06/18 12:45 DC 12/04/18 09:01 6 MLS/HR Lab Laboratory Tests Test 12/06/18 11:20 12/07/18 05:45 Ionized Calcium 1.22 mmol/L (1.13-1.32) White Blood Count 5.6 x10^3/uL (4.0-11.0) Red Blood Count 3.17 x10^6/uL (3.50-5.40) Hemoglobin 8.5 g/dL (12.0-15.5) Hematocrit 25.6 % (36.0-47.0) Mean Corpuscular Volume 81 fL (79-100) Mean Corpuscular Hemoglobin 27 pg (25-35) Mean Corpuscular Hemoglobin Concent 33 g/dL (31-37) Red Cell Distribution Width 16.2 % (11.5-14.5) Platelet Count 63 x10^3/uL (140-400) Neutrophils (%) (Auto) 87 % (31-73) Lymphocytes (%) (Auto) 4 % (24-48) Monocytes (%) (Auto) 5 % (0-9) Eosinophils (%) (Auto) 4 % (0-3) Basophils (%) (Auto) 0 % (0-3) Neutrophils # (Auto) 4.8 x10^3uL (1.8-7.7) Lymphocytes # (Auto) 0.2 x10^3/uL (1.0-4.8) Monocytes # (Auto) 0.3 x10^3/uL (0.0-1.1) Eosinophils # (Auto) 0.2 x10^3/uL (0.0-0.7) Basophils # (Auto) 0.0 x10^3/uL (0.0-0.2) Sodium Level 146 mmol/L (136-145) Potassium Level 3.7 mmol/L (3.5-5.1) Chloride Level 112 mmol/L (98-107) Carbon Dioxide Level 25 mmol/L (21-32) Anion Gap 9 (6-14) Blood Urea Nitrogen 38 mg/dL (7-20) Creatinine 2.8 mg/dL (0.6-1.0) Estimated GFR (Cockcroft-Gault) 17.4 BUN/Creatinine Ratio 14 (6-20) Glucose Level 89 mg/dL (70-99) Calcium Level 8.3 mg/dL (8.5-10.1) Total Bilirubin 3.5 mg/dL (0.2-1.0) Aspartate Amino Transf (AST/SGOT) 36 U/L (15-37) Alanine Aminotransferase (ALT/SGPT) 51 U/L (14-59) Alkaline Phosphatase 593 U/L (46-116) Total Protein 4.2 g/dL (6.4-8.2) Albumin 1.8 g/dL (3.4-5.0) Albumin/Globulin Ratio 0.8 (1.0-1.7) Results All relevant outside records, renal labs, imaging studies, telemetry/EKG's were reviewed. TAO CARMONA MD Dec 07, 2018 10:42
[2018-12-07] MEDS: DAPTOmycin (GENERIC) IVPB 460 MG in IV NORMAL SALINE 50ML 50 ML IV SCH (11:18)
[2018-12-07] MEDS ORDERED: ONDANSETRON ODT 4 MG TAB.RAPDIS. PO PRN (11:30)
[2018-12-07] MEDS ORDERED: ONDANSETRON PF 4 MG/2 ML VIAL. IV PRN (11:30)
--- NOTE | 2018-12-07 11:36 | PDOC ---
PROGRESS NOTES Chief Complaint Chief Complaint Marginal zone lymphoma on chemotherapy Neutropenic fever, last chemotherapy November 16, 2018 Anemia of chronic disease Septic shock-off levophed Urine culture, blood culture negative Diarrhea 1 episode Colitis on CAT scan Left arm swelling-previous IV site Bilateral leg edema secondary to IV fluid resuscitation AK I VMN-better INdWelling right-sided Port-A-Cath for chemotherapy full Code History of Present Illness History of Present Illness SHe was a transfer from ICU and was there because of septic shock likely from colitis needing levophed Blood pressure meds have been on hold naturally Urine culture blood culture negative and also stool cx neg She complains of left arm swelling and pain - previous IV site She has a right indwelling Port-A-Cath for chemotherapy that started first week of November - Dr Jenkins Legs are also bilaterally swollen from IV resuscitation She still weak, unable to get to the commode - hopefully might be able to today Indwelling Coet catheter Plan: check venous Doppler of the left arm rule out deep DVT or superficial vein thrombosis DC Cote once able to ambulate more - hopefully today Add PTOT She already has a bedside commode I provided copies of her tests Renal on board, for the ELISE, now she notes leg swelling and asks about lasix Vitals Vitals Vital Signs Date Time Temp Pulse Resp B/P (MAP) Pulse Ox O2 Delivery O2 Flow Rate FiO2 12/07/18 08:00 Room Air 12/07/18 07:00 98.5 102 18 143/70 (94) 97 98.5 Physical Exam Physical Exam GENERAL: Propped up in bed, alert, NAD HEENT: Oral cavity clear, no thrush or lesions NECK: Supple LUNGS: Clear. HEART: S1, S2 regular. ABDOMEN: Obese, soft and nontender : Cote EXTREMITIES: Trace edema lower extremities , bilaterally. 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 General: Alert, Oriented X3, Cooperative, No acute distress Heart: Regular rate, Normal S1, Normal S2 Lungs: Clear Abdomen: No tenderness Extremities: No clubbing, No cyanosis, Other (1+ bilateral LE pitting edema, tender and swollen left arm, mostly elbow) Skin: No breakdown, No significant lesion Labs LABS Laboratory Tests Test 12/07/18 05:45 White Blood Count 5.6 x10^3/uL (4.0-11.0) Red Blood Count 3.17 x10^6/uL (3.50-5.40) Hemoglobin 8.5 g/dL (12.0-15.5) Hematocrit 25.6 % (36.0-47.0) Mean Corpuscular Volume 81 fL (79-100) Mean Corpuscular Hemoglobin 27 pg (25-35) Mean Corpuscular Hemoglobin Concent 33 g/dL (31-37) Red Cell Distribution Width 16.2 % (11.5-14.5) Platelet Count 63 x10^3/uL (140-400) Neutrophils (%) (Auto) 87 % (31-73) Lymphocytes (%) (Auto) 4 % (24-48) Monocytes (%) (Auto) 5 % (0-9) Eosinophils (%) (Auto) 4 % (0-3) Basophils (%) (Auto) 0 % (0-3) Neutrophils # (Auto) 4.8 x10^3uL (1.8-7.7) Lymphocytes # (Auto) 0.2 x10^3/uL (1.0-4.8) Monocytes # (Auto) 0.3 x10^3/uL (0.0-1.1) Eosinophils # (Auto) 0.2 x10^3/uL (0.0-0.7) Basophils # (Auto) 0.0 x10^3/uL (0.0-0.2) Sodium Level 146 mmol/L (136-145) Potassium Level 3.7 mmol/L (3.5-5.1) Chloride Level 112 mmol/L (98-107) Carbon Dioxide Level 25 mmol/L (21-32) Anion Gap 9 (6-14) Blood Urea Nitrogen 38 mg/dL (7-20) Creatinine 2.8 mg/dL (0.6-1.0) Estimated GFR (Cockcroft-Gault) 17.4 BUN/Creatinine Ratio 14 (6-20) Glucose Level 89 mg/dL (70-99) Calcium Level 8.3 mg/dL (8.5-10.1) Total Bilirubin 3.5 mg/dL (0.2-1.0) Aspartate Amino Transf (AST/SGOT) 36 U/L (15-37) Alanine Aminotransferase (ALT/SGPT) 51 U/L (14-59) Alkaline Phosphatase 593 U/L (46-116) Total Protein 4.2 g/dL (6.4-8.2) Albumin 1.8 g/dL (3.4-5.0) Albumin/Globulin Ratio 0.8 (1.0-1.7) Review of Systems Review of Systems weak, left arm is swollen and tender, the rest of ROS negative Comment Review of Relevant I have reviewed the following items kike (where applicable) has been applied. Labs Laboratory Tests Test 12/05/18 15:50 12/06/18 06:00 12/06/18 11:20 12/07/18 05:45 Prothrombin Time 13.4 SEC (11.7-14.0) Prothromb Time International Ratio 1.1 (0.8-1.1) White Blood Count 3.7 x10^3/uL (4.0-11.0) 5.6 x10^3/uL (4.0-11.0) Red Blood Count 3.01 x10^6/uL (3.50-5.40) 3.17 x10^6/uL (3.50-5.40) Hemoglobin 8.1 g/dL (12.0-15.5) 8.5 g/dL (12.0-15.5) Hematocrit 23.9 % (36.0-47.0) 25.6 % (36.0-47.0) Mean Corpuscular Volume 80 fL (79-100) 81 fL (79-100) Mean Corpuscular Hemoglobin 27 pg (25-35) 27 pg (25-35) Mean Corpuscular Hemoglobin Concent 34 g/dL (31-37) 33 g/dL (31-37) Red Cell Distribution Width 15.8 % (11.5-14.5) 16.2 % (11.5-14.5) Platelet Count 63 x10^3/uL (140-400) 63 x10^3/uL (140-400) Neutrophils (%) (Auto) 89 % (31-73) 87 % (31-73) Lymphocytes (%) (Auto) 3 % (24-48) 4 % (24-48) Monocytes (%) (Auto) 3 % (0-9) 5 % (0-9) Eosinophils (%) (Auto) 5 % (0-3) 4 % (0-3) Basophils (%) (Auto) 0 % (0-3) 0 % (0-3) Neutrophils # (Auto) 3.3 x10^3uL (1.8-7.7) 4.8 x10^3uL (1.8-7.7) Lymphocytes # (Auto) 0.1 x10^3/uL (1.0-4.8) 0.2 x10^3/uL (1.0-4.8) Monocytes # (Auto) 0.1 x10^3/uL (0.0-1.1) 0.3 x10^3/uL (0.0-1.1) Eosinophils # (Auto) 0.2 x10^3/uL (0.0-0.7) 0.2 x10^3/uL (0.0-0.7) Basophils # (Auto) 0.0 x10^3/uL (0.0-0.2) 0.0 x10^3/uL (0.0-0.2) Sodium Level 141 mmol/L (136-145) 146 mmol/L (136-145) Potassium Level 3.8 mmol/L (3.5-5.1) 3.7 mmol/L (3.5-5.1) Chloride Level 109 mmol/L (98-107) 112 mmol/L (98-107) Carbon Dioxide Level 22 mmol/L (21-32) 25 mmol/L (21-32) Anion Gap 10 (6-14) 9 (6-14) Blood Urea Nitrogen 46 mg/dL (7-20) 38 mg/dL (7-20) Creatinine 3.2 mg/dL (0.6-1.0) 2.8 mg/dL (0.6-1.0) Estimated GFR (Cockcroft-Gault) 14.9 17.4 BUN/Creatinine Ratio 14 (6-20) 14 (6-20) Glucose Level 86 mg/dL (70-99) 89 mg/dL (70-99) Calcium Level 8.1 mg/dL (8.5-10.1) 8.3 mg/dL (8.5-10.1) Magnesium Level 2.0 mg/dL (1.8-2.4) Total Bilirubin 6.4 mg/dL (0.2-1.0) 3.5 mg/dL (0.2-1.0) Aspartate Amino Transf (AST/SGOT) 35 U/L (15-37) 36 U/L (15-37) Alanine Aminotransferase (ALT/SGPT) 50 U/L (14-59) 51 U/L (14-59) Alkaline Phosphatase 469 U/L (46-116) 593 U/L (46-116) Total Protein 3.9 g/dL (6.4-8.2) 4.2 g/dL (6.4-8.2) Albumin 1.8 g/dL (3.4-5.0) 1.8 g/dL (3.4-5.0) Albumin/Globulin Ratio 0.9 (1.0-1.7) 0.8 (1.0-1.7) Ionized Calcium 1.22 mmol/L (1.13-1.32) Laboratory Tests Test 12/07/18 05:45 White Blood Count 5.6 x10^3/uL (4.0-11.0) Red Blood Count 3.17 x10^6/uL (3.50-5.40) Hemoglobin 8.5 g/dL (12.0-15.5) Hematocrit 25.6 % (36.0-47.0) Mean Corpuscular Volume 81 fL (79-100) Mean Corpuscular Hemoglobin 27 pg (25-35) Mean Corpuscular Hemoglobin Concent 33 g/dL (31-37) Red Cell Distribution Width 16.2 % (11.5-14.5) Platelet Count 63 x10^3/uL (140-400) Neutrophils (%) (Auto) 87 % (31-73) Lymphocytes (%) (Auto) 4 % (24-48) Monocytes (%) (Auto) 5 % (0-9) Eosinophils (%) (Auto) 4 % (0-3) Basophils (%) (Auto) 0 % (0-3) Neutrophils # (Auto) 4.8 x10^3uL (1.8-7.7) Lymphocytes # (Auto) 0.2 x10^3/uL (1.0-4.8) Monocytes # (Auto) 0.3 x10^3/uL (0.0-1.1) Eosinophils # (Auto) 0.2 x10^3/uL (0.0-0.7) Basophils # (Auto) 0.0 x10^3/uL (0.0-0.2) Sodium Level 146 mmol/L (136-145) Potassium Level 3.7 mmol/L (3.5-5.1) Chloride Level 112 mmol/L (98-107) Carbon Dioxide Level 25 mmol/L (21-32) Anion Gap 9 (6-14) Blood Urea Nitrogen 38 mg/dL (7-20) Creatinine 2.8 mg/dL (0.6-1.0) Estimated GFR (Cockcroft-Gault) 17.4 BUN/Creatinine Ratio 14 (6-20) Glucose Level 89 mg/dL (70-99) Calcium Level 8.3 mg/dL (8.5-10.1) Total Bilirubin 3.5 mg/dL (0.2-1.0) Aspartate Amino Transf (AST/SGOT) 36 U/L (15-37) Alanine Aminotransferase (ALT/SGPT) 51 U/L (14-59) Alkaline Phosphatase 593 U/L (46-116) Total Protein 4.2 g/dL (6.4-8.2) Albumin 1.8 g/dL (3.4-5.0) Albumin/Globulin Ratio 0.8 (1.0-1.7) Microbiology 12/03/18 Blood Culture - Preliminary, Resulted NO GROWTH AFTER 4 DAYS 12/04/18 Stool Culture - Final, Resulted 12/04/18 Stool Culture Result 1 (DANIAL) - Final, Resulted 12/04/18 Campylobacter Antigen Assay - Preliminary, Resulted 12/04/18 Campylobactor Result 1 - Preliminary, Resulted 12/04/18 Shiga Toxin Test - Final, Resulted 12/03/18 Urine Culture - Final, Complete 12/03/18 Urine Culture Result 1 (DANIAL) - Final, Complete Medications Current Medications Sodium Chloride 1,000 ml @ 1,000 mls/hr 1X ONCE IV Last administered on at 23:50; Start 12/02/18 at 23:30; Stop 12/03/18 at 00:29; Status DC Sodium Chloride 1,000 ml @ 1,000 mls/hr 1X ONCE IV Last administered on at 00:08; Start 12/02/18 at 23:30; Stop 12/03/18 at 00:29; Status DC Meropenem 1 gm/ Sodium Chloride 100 ml @ 200 mls/hr Q8HRS IV Last administered on 12/02/18at 23:51; Start 12/03/18 at 00:00; Stop 12/03/18 at 03:21 ; Status DC Vancomycin HCl (Vanco Per Pharmacy) 1 each PRN DAILY PRN MC SEE COMMENTS Last administered on 12/03/18at 03:45; Start 12/02/18 at 23:30; Stop 12/03/18 at 07:49 ; Status DC Vancomycin HCl 2 gm/Sodium Chloride 500 ml @ 250 mls/hr 1X ONCE IV Last administered on 12/03/18at 00:12; Start 12/03/18 at 00:30; Stop 12/03/18 at 02:29 ; Status DC Iohexol (Omnipaque 300 Mg/ml) 75 ml 1X ONCE IV Last administered on 12/03/18at 00:41; Start 12/03/18 at 01:00; Stop 12/03/18 at 01:01; Status DC Info (CONTRAST GIVEN -- Rx MONITORING) 1 each PRN DAILY PRN MC SEE COMMENTS; Start 12/03/18 at 00:30; Stop 12/05/18 at 00:29; Status DC Sodium Chloride 1,000 ml @ 1,000 mls/hr 1X ONCE IV Last administered on at 01:08; Start 12/03/18 at 01:00; Stop 12/03/18 at 01:59; Status DC Norepinephrine Bitartrate 250 ml @ 0 mls/hr 1X ONCE IV Last administered on at 01:24; Start 12/03/18 at 01:30; Stop 12/03/18 at 01:31; Status DC Diphenhydramine HCl (Benadryl) 25 mg 1X ONCE IVP Last administered on at 02:01; Start 12/03/18 at 02:00; Stop 12/03/18 at 02:01; Status DC Magnesium Sulfate/ Dextrose 100 ml @ 100 mls/hr 1X ONCE IV Last administered on 12/03/18at 02:08; Start 12/03/18 at 02:00; Stop 12/03/18 at 02:59; Status DC Aspirin (Children'S Aspirin) 324 mg 1X ONCE PO Last administered on 12/03/18at 01:59; Start 12/03/18 at 02:00; Stop 12/03/18 at 02:01; Status DC Sodium Chloride 1,000 ml @ 175 mls/hr Q5H43M IV Last administered on at 04:23; Start 12/03/18 at 03:30; Stop 12/04/18 at 03:29; Status DC Meropenem 1 gm/ Sodium Chloride 100 ml @ 200 mls/hr Q12HR IV Last administered on 12/07/18at 08:40; Start 12/03/18 at 09:00 Vancomycin HCl 1.75 gm/Sodium Chloride 500 ml @ 250 mls/hr Q24H IV ; Start at 00:00; Stop 12/04/18 at 00:00; Status DC Vancomycin HCl (Vancomycin Trough Level) 1 each 1X ONCE MC ; Start 12/04/18 at 23:30; Stop 12/04/18 at 23:30; Status DC Diphenhydramine HCl (Benadryl) 25 mg PRN Q6HRS PRN IVP ITCHING; Start 12/03/18 at 04:45 Iohexol (Omnipaque 300 Mg/ml) 100 ml STK-MED ONCE .ROUTE ; Start 12/03/18 at 06: 01; Stop 12/03/18 at 06:02; Status DC Vancomycin HCl (Vancomycin Oral Solution) 125 mg [id number] PO Last administered on 12/04/18at 20:34; Start 12/03/18 at 09:00; Stop 12/05/18 at 11:39; Status DC Acetaminophen (Tylenol) 650 mg PRN Q6HRS PRN PO Headaches, Temp > 101.5' Last administered on 12/06/18at 20:07; Start 12/03/18 at 07:45 Lorazepam (Ativan) 0.5 mg PRN Q6HRS PRN IV ANXIETY / AGITATION; Start 12/03/18 at 07:45 Ondansetron HCl (Zofran) 4 mg PRN Q6HRS PRN IV NAUSEA/VOMITING Last administered on 12/05/18 05:47; Start 12/03/18 at 07:45 Info (Icu Electrolyte Protocol) 1 ea DAILY MC Last administered on 12/06/18 07 :33; Start 12/03/18 at 09:00 Heparin Sodium (Porcine) (Heparin Sodium) 5,000 unit Q8HRS SQ Last administered on 12/05/18 15:18; Start 12/03/18 at 08:00; Stop 12/05/18 at 15:26 ; Status DC Sodium Chloride (Normal Saline Flush) 3 ml QSHIFT PRN IV AFTER MEDS AND BLOOD DRAWS; Start 12/03/18 at 07:45 Oxycodone/ Acetaminophen (Percocet 5/325) 1 tab PRN Q4HRS PRN PO MILD PAIN, 1ST CHOICE; Start 12/03/18 at 07:45 Morphine Sulfate (Morphine Sulfate) 2 mg PRN Q1HR PRN IV PAIN; Start 12/03/18 at 07:45 Aspirin (Children'S Aspirin) 81 mg DAILY PO Last administered on 12/07/18 09: 13; Start 12/03/18 at 09:00 Clotrimazole (Mycelex-7) 1 estefany DAILY VG Last administered on 12/04/18 09:36; Start 12/03/18 at 09:00; Stop 12/10/18 at 08:59 Duloxetine HCl (Cymbalta) 30 mg DAILY PO Last administered on 12/07/18 09:14; Start 12/03/18 at 09:00 Levothyroxine Sodium (Synthroid) 100 mcg DAILY06 PO ; Start 12/03/18 at 08:00; Status Cancel Nystatin (Nystatin Oral Susp) 5 ml TID SWSW ; Start 12/03/18 at 09:00; Stop at 10:21; Status DC Ciprofloxacin/ Dextrose 200 ml @ 200 mls/hr Q12HR IV Last administered on 12/07 09:15; Start 12/03/18 at 09:00 Daptomycin 460 mg/ Sodium Chloride 50 ml @ 100 mls/hr Q24H IV Last administered on 12/07/18 11:18; Start 12/03/18 at 09:00 Micafungin Sodium 100 mg/Dextrose 100 ml @ 100 mls/hr Q24H IV Last administered on 12/07/18 10:23; Start 12/03/18 at 09:00 Non-Formulary Medication 1 ea DAILY06 PO Last administered on 12/07/18at 05:35; Start 12/03/18 at 09:30 Magnesium Sulfate 50 ml @ 25 mls/hr 1X ONCE IV Last administered on 12/03/18 11:09; Start 12/03/18 at 10:00; Stop 12/03/18 at 11:59; Status DC Norepinephrine Bitartrate 250 ml @ 1.875 mls/ hr CONT PRN IV SEE I/O RECORD Last administered on 12/04/18at 14:24; Start 12/03/18 at 11:15; Stop 12/06/18 at 12:28; Status DC Sodium Chloride 1,000 ml @ 999 mls/hr Q1H1M IV Last administered on 12/03/18at 14:24; Start 12/03/18 at 13:45; Stop 12/03/18 at 14:32; Status DC Vasopressin 40 unit/Dextrose 102 ml @ 6 mls/hr CONT PRN IV SEE I/O RECORD Last administered on 12/04/18at 09:01; Start 12/03/18 at 15:00; Stop 12/06/18 at 12:45 ; Status DC Sodium Chloride 1,000 ml @ 100 mls/hr Q10H IV Last administered on 12/05/18at 11:07; Start 12/04/18 at 20:45; Stop 12/05/18 at 11:34; Status DC Tbo-Filgrastim (Granix) 480 mcg QHS SQ Last administered on 12/06/18at 21:35; Start 12/05/18 at 21:00 Calcium Gluconate (Calcium Gluconate) 1,000 mg 1X ONCE IVP ; Start 12/05/18 at 11:15; Stop 12/05/18 at 11:15; Status DC Calcium/Vitamin D (Oscal D 500mg/ 200uts) 1 tab BIDWMEALS PO Last administered on 12/07/18at 09:13; Start 12/05/18 at 17:00 Calcium Gluconate 1000 mg/Dextrose 110 ml @ 220 mls/hr 1X ONCE IV Last administered on 12/05/18at 12:45; Start 12/05/18 at 12:00; Stop 12/05/18 at 12:29 ; Status DC Sodium Chloride 1,000 ml @ 75 mls/hr [id number] IV Last administered on at 05:35; Start 12/05/18 at 11:45; Stop 12/07/18 at 10:00; Status DC Active Scripts Active Nystatin 100,000 Unit/1 Ml Oral.susp 5 Ml SWSW TID 3 Days Clotrimazole 45 Gm Cream.appl 1 Estefany VG DAILY 3 Days Levaquin (Levofloxacin) 500 Mg Tablet 500 Mg PO DAILY06 7 Days Reported Biotin 10,000 Mcg Capsule 10,000 Mcg PO DAILY Multivitamins (Multivitamin) 1 Each Tablet 1 Each PO DAILY Metoprolol Tartrate 25 Mg Tablet 25 Mg PO DAILY Cymbalta (Duloxetine Hcl) 30 Mg Capsule.dr 1 Cap PO DAILY Aspirin 81 Mg Tab.chew 1 Tab PO DAILY Synthroid (Levothyroxine Sodium) 88 Mcg Tablet 100 Mcg PO DAILY Climara (Estradiol) 1 Each Patch.tdwk Latanoprost 2.5 Ml Drops 1 Drop [facility] Vitals/I & O Vital Sign - Last 24 Hours 12/06/18 12/06/18 12/06/18 12/06/18 14:54 16:00 19:49 20:00 Temp 98.1 98.0 98.0 98.1 98.0 98.0 Pulse 85 84 95 Resp 18 18 20 B/P (MAP) 137/62 (87) 132/60 (84) 132/67 (88) Pulse Ox 99 97 O2 Delivery Room Air Room Air Room Air Room Air 12/06/18 12/07/18 12/07/18 12/07/18 23:34 03:19 07:00 08:00 Temp 98.7 98.5 98.5 98.7 98.5 98.5 Pulse 98 104 102 Resp 20 18 18 B/P (MAP) 137/69 (91) 131/67 (88) 143/70 (94) Pulse Ox 96 96 97 O2 Delivery Room Air Room Air Room Air Room Air Intake and Output 12/06/18 12/06/18 12/07/18 15:00 23:00 07:00 Intake Total 1421 ml 1000 ml 650 ml Output Total 670 ml 3750 ml Balance 751 ml 1000 ml -3100 ml GUERITA CONTRERAS MD Dec 07, 2018 11:36
[2018-12-07 15:00] VITALS: BP 150/71
--- NOTE | 2018-12-07 15:58 | RAD ---
Examination: VENOUS UPPER EXTREMITY LEFT History: Swelling at a previous IV site Comparison/Correlation: None Findings: Duplex ultrasound examination of the left lower extremity was performed. Compression was utilized. Left internal jugular, subclavian, cephalic, brachial, and radial veins are unremarkable. Right subclavian vein is patent. Impression: No evidence of left upper extremity DVT. Electronically signed by: Min Salvador MD (12/07/2018 3:55 PM) [facility]
[2018-12-07 19:35] VITALS: BP 143/62
[2018-12-07] MEDS: ACETAMINOPHEN 325 MG TABLET. PO PRN (21:55)
[2018-12-07 23:09] VITALS: BP 144/76
[2018-12-08 03:45] VITALS: BP 160/83
[2018-12-08] MEDS: SYNTHROID 100 MCG PO SCH (05:23)
[2018-12-08 05:41] LABS: BASO % 0 % (0-3); EOS # 0.3 x10^3/uL (0.0-0.7); EOS % 6 % (0-3); HEMATOCRIT 27.2 % (36.0-47.0); HEMOGLOBIN 8.9 g/dL (12.0-15.5); LYMPH # 0.3 x10^3/uL (1.0-4.8); LYMPH % 5 % (24-48); MEAN CORPUSCULAR HEMOGLOBIN 26 pg (25-35); MEAN CORPUSCULAR HGB CONC 33 g/dL (31-37); MEAN CORPUSCULAR VOLUME 81 fL (79-100); MONO # 0.3 x10^3/uL (0.0-1.1); MONO % 6 % (0-9); NEUT # 4.5 x10^3uL (1.8-7.7); NEUT % 83 % (31-73); PLATELET COUNT 74 x10^3/uL (140-400); RED BLOOD COUNT 3.37 x10^6/uL (3.50-5.40); WHITE BLOOD COUNT 5.4 x10^3/uL (4.0-11.0)
[2018-12-08 06:16] LABS: ALBUMIN/GLOBULIN RATIO 0.7 (1.0-1.7); CREATININE 2.2 mg/dL (0.6-1.0); GFR 22.9; POTASSIUM 3.3 mmol/L (3.5-5.1); TOTAL BILIRUBIN 2.4 mg/dL (0.2-1.0); TOTAL PROTEIN 4.7 g/dL (6.4-8.2)
[2018-12-08 07:12] VITALS: BP 144/79
[2018-12-08] MEDS: CLOTRIMAZOLE 1% VAGINAL CREAM 45GM TUBE. VG SCH (08:50)
[2018-12-08] MEDS: ASPIRIN CHEWABLE 81 MG TABLET. PO SCH (08:51)
[2018-12-08] MEDS: DULoxetine HCL 30 MG CAPSULE.DR PO SCH (08:51)
[2018-12-08] MEDS: CALCIUM CARB/VIT D3 500/200 TABLET. PO SCH ×2 (08:51→17:44)
[2018-12-08] MEDS: MEROPENEM 1 GM in IV NORMAL SALINE 100ML 100 ML IV SCH ×2 (08:52→21:02)
[2018-12-08] MEDS: ELECTROLYTE (ICU) PROTOCOL. MC SCH (09:00)
[2018-12-08] MEDS: ACETAMINOPHEN 325 MG TABLET. PO PRN ×2 (09:11→22:02)
--- NOTE | 2018-12-08 09:33 | PDOC ---
PULMONARY PROGRESS NOTES Subjective PT EATING NOT MORE SOA Vitals Vital Signs Date Time Temp Pulse Resp B/P (MAP) Pulse Ox O2 Delivery O2 Flow Rate FiO2 12/08/18 07:12 98.2 105 17 144/79 (100) 95 Room Air 98.2 ROS: No Nausea, No Chest Pain General: Alert, No acute distress Lungs: Clear Cardiovascular: S1, S2 Abdomen: Soft Neuro Exam: Alert Extremities: Other (jaundice, 1+edema) Skin: Warm, Dry Labs Laboratory Tests Test 12/06/18 11:20 12/07/18 05:45 12/08/18 05:30 Ionized Calcium 1.22 mmol/L (1.13-1.32) White Blood Count 5.6 x10^3/uL (4.0-11.0) 5.4 x10^3/uL (4.0-11.0) Red Blood Count 3.17 x10^6/uL (3.50-5.40) 3.37 x10^6/uL (3.50-5.40) Hemoglobin 8.5 g/dL (12.0-15.5) 8.9 g/dL (12.0-15.5) Hematocrit 25.6 % (36.0-47.0) 27.2 % (36.0-47.0) Mean Corpuscular Volume 81 fL (79-100) 81 fL (79-100) Mean Corpuscular Hemoglobin 27 pg (25-35) 26 pg (25-35) Mean Corpuscular Hemoglobin Concent 33 g/dL (31-37) 33 g/dL (31-37) Red Cell Distribution Width 16.2 % (11.5-14.5) 16.0 % (11.5-14.5) Platelet Count 63 x10^3/uL (140-400) 74 x10^3/uL (140-400) Neutrophils (%) (Auto) 87 % (31-73) 83 % (31-73) Lymphocytes (%) (Auto) 4 % (24-48) 5 % (24-48) Monocytes (%) (Auto) 5 % (0-9) 6 % (0-9) Eosinophils (%) (Auto) 4 % (0-3) 6 % (0-3) Basophils (%) (Auto) 0 % (0-3) 0 % (0-3) Neutrophils # (Auto) 4.8 x10^3uL (1.8-7.7) 4.5 x10^3uL (1.8-7.7) Lymphocytes # (Auto) 0.2 x10^3/uL (1.0-4.8) 0.3 x10^3/uL (1.0-4.8) Monocytes # (Auto) 0.3 x10^3/uL (0.0-1.1) 0.3 x10^3/uL (0.0-1.1) Eosinophils # (Auto) 0.2 x10^3/uL (0.0-0.7) 0.3 x10^3/uL (0.0-0.7) Basophils # (Auto) 0.0 x10^3/uL (0.0-0.2) 0.0 x10^3/uL (0.0-0.2) Sodium Level 146 mmol/L (136-145) 145 mmol/L (136-145) Potassium Level 3.7 mmol/L (3.5-5.1) 3.3 mmol/L (3.5-5.1) Chloride Level 112 mmol/L (98-107) 108 mmol/L (98-107) Carbon Dioxide Level 25 mmol/L (21-32) 29 mmol/L (21-32) Anion Gap 9 (6-14) 8 (6-14) Blood Urea Nitrogen 38 mg/dL (7-20) 31 mg/dL (7-20) Creatinine 2.8 mg/dL (0.6-1.0) 2.2 mg/dL (0.6-1.0) Estimated GFR (Cockcroft-Gault) 17.4 22.9 BUN/Creatinine Ratio 14 (6-20) 14 (6-20) Glucose Level 89 mg/dL (70-99) 98 mg/dL (70-99) Calcium Level 8.3 mg/dL (8.5-10.1) 9.0 mg/dL (8.5-10.1) Total Bilirubin 3.5 mg/dL (0.2-1.0) 2.4 mg/dL (0.2-1.0) Aspartate Amino Transf (AST/SGOT) 36 U/L (15-37) 28 U/L (15-37) Alanine Aminotransferase (ALT/SGPT) 51 U/L (14-59) 47 U/L (14-59) Alkaline Phosphatase 593 U/L (46-116) 616 U/L (46-116) Total Protein 4.2 g/dL (6.4-8.2) 4.7 g/dL (6.4-8.2) Albumin 1.8 g/dL (3.4-5.0) 2.0 g/dL (3.4-5.0) Albumin/Globulin Ratio 0.8 (1.0-1.7) 0.7 (1.0-1.7) Creatine Kinase 12 U/L (26-192) Laboratory Tests Test 12/08/18 05:30 White Blood Count 5.4 x10^3/uL (4.0-11.0) Red Blood Count 3.37 x10^6/uL (3.50-5.40) Hemoglobin 8.9 g/dL (12.0-15.5) Hematocrit 27.2 % (36.0-47.0) Mean Corpuscular Volume 81 fL (79-100) Mean Corpuscular Hemoglobin 26 pg (25-35) Mean Corpuscular Hemoglobin Concent 33 g/dL (31-37) Red Cell Distribution Width 16.0 % (11.5-14.5) Platelet Count 74 x10^3/uL (140-400) Neutrophils (%) (Auto) 83 % (31-73) Lymphocytes (%) (Auto) 5 % (24-48) Monocytes (%) (Auto) 6 % (0-9) Eosinophils (%) (Auto) 6 % (0-3) Basophils (%) (Auto) 0 % (0-3) Neutrophils # (Auto) 4.5 x10^3uL (1.8-7.7) Lymphocytes # (Auto) 0.3 x10^3/uL (1.0-4.8) Monocytes # (Auto) 0.3 x10^3/uL (0.0-1.1) Eosinophils # (Auto) 0.3 x10^3/uL (0.0-0.7) Basophils # (Auto) 0.0 x10^3/uL (0.0-0.2) Sodium Level 145 mmol/L (136-145) Potassium Level 3.3 mmol/L (3.5-5.1) Chloride Level 108 mmol/L (98-107) Carbon Dioxide Level 29 mmol/L (21-32) Anion Gap 8 (6-14) Blood Urea Nitrogen 31 mg/dL (7-20) Creatinine 2.2 mg/dL (0.6-1.0) Estimated GFR (Cockcroft-Gault) 22.9 BUN/Creatinine Ratio 14 (6-20) Glucose Level 98 mg/dL (70-99) Calcium Level 9.0 mg/dL (8.5-10.1) Total Bilirubin 2.4 mg/dL (0.2-1.0) Aspartate Amino Transf (AST/SGOT) 28 U/L (15-37) Alanine Aminotransferase (ALT/SGPT) 47 U/L (14-59) Alkaline Phosphatase 616 U/L (46-116) Creatine Kinase 12 U/L (26-192) Total Protein 4.7 g/dL (6.4-8.2) Albumin 2.0 g/dL (3.4-5.0) Albumin/Globulin Ratio 0.7 (1.0-1.7) Medications Active Scripts Medications Dose Route/Sig Max Daily Dose Days Date Category Nystatin 100,000 Unit/1 Ml Oral.susp 5 Ml SWSW TID 3 12/01/18 Rx Clotrimazole 45 Gm Cream.appl 1 Estefany VG DAILY 3 12/01/18 Rx Levaquin (Levofloxacin) 500 Mg Tablet 500 Mg PO DAILY06 7 12/01/18 Rx Biotin 10,000 Mcg Capsule 10,000 Mcg PO DAILY 10/10/18 Reported Multivitamins (Multivitamin) 1 Each Tablet 1 Each PO DAILY 05/06/18 Reported Metoprolol Tartrate 25 Mg Tablet 25 Mg PO DAILY 04/17/18 Reported Cymbalta (Duloxetine Hcl) 30 Mg Capsule.dr 1 Cap PO DAILY 04/17/18 Reported Aspirin 81 Mg Tab.chew 1 Tab PO DAILY 02/12/17 Reported Synthroid (Levothyroxine Sodium) 88 Mcg Tablet 100 Mcg PO DAILY 02/11/17 Reported Climara (Estradiol) 1 Each Patch.tdwk 02/11/17 Reported Latanoprost 2.5 Ml Drops 1 Drop EACHEYE QHS 02/11/17 Reported Impression . 1. Septic shock. likely due to colitis. She also has a component of hypovolemic shock as well. improved, off levophed. 2. Marginal zone lymphoma, status post chemo in the first week of November and has immunosuppression. 3. No significant history of tobacco use. 4. Acute kidney injury related to shock. improving 5. Lactic acidosis secondary to septic shock, the levels are improving. 6. Severe protein-calorie malnutrition. Albumin level is 1.7. 7. Elevated liver function test, Bili up to 12. Now sig improving ? chemo induced liver failure, no obstruction/ GI following. MRCP neg 8. Increased troponin level. Follow Cardiology's recommendations. 9. Pancytopenia, chemo vs sepsis induced. improving Plan . RESP STATUS IS COMPENSATED PT TO HELP US WITH D/C PLANNING 1. Continues to improve 2. prn oxygen 3. Monitor renal function. 4. Monitor liver function tests./ MRCP neg 5. Follow ID recommendation. 6. Broad spectrum antibiotics per ID. 7. Renal recommendation. 8. Cardiology recommendation. 9. Improved nutritional status. 10. off sc heparin due to thrombocytopenia MADELEINE TINOCO MD Dec 08, 2018 09:32
--- NOTE | 2018-12-08 10:29 | PDOC ---
Subjective: Subjective: Doing okay. Objective: Objective: No stools charted since 12/05. Vital Signs: Vital Signs Date Time Temp Pulse Resp B/P (MAP) Pulse Ox O2 Delivery O2 Flow Rate FiO2 12/08/18 07:12 98.2 105 17 144/79 (100) 95 Room Air 98.2 Labs: Laboratory Tests Test 12/08/18 05:30 White Blood Count 5.4 x10^3/uL Red Blood Count 3.37 x10^6/uL Hemoglobin 8.9 g/dL Hematocrit 27.2 % Mean Corpuscular Volume 81 fL Mean Corpuscular Hemoglobin 26 pg Mean Corpuscular Hemoglobin Concent 33 g/dL Red Cell Distribution Width 16.0 % Platelet Count 74 x10^3/uL Neutrophils (%) (Auto) 83 % Lymphocytes (%) (Auto) 5 % Monocytes (%) (Auto) 6 % Eosinophils (%) (Auto) 6 % Basophils (%) (Auto) 0 % Neutrophils # (Auto) 4.5 x10^3uL Lymphocytes # (Auto) 0.3 x10^3/uL Monocytes # (Auto) 0.3 x10^3/uL Eosinophils # (Auto) 0.3 x10^3/uL Basophils # (Auto) 0.0 x10^3/uL Sodium Level 145 mmol/L Potassium Level 3.3 mmol/L Chloride Level 108 mmol/L Carbon Dioxide Level 29 mmol/L Anion Gap 8 Blood Urea Nitrogen 31 mg/dL Creatinine 2.2 mg/dL Estimated GFR (Cockcroft-Gault) 22.9 BUN/Creatinine Ratio 14 Glucose Level 98 mg/dL Calcium Level 9.0 mg/dL Total Bilirubin 2.4 mg/dL Aspartate Amino Transf (AST/SGOT) 28 U/L Alanine Aminotransferase (ALT/SGPT) 47 U/L Alkaline Phosphatase 616 U/L Creatine Kinase 12 U/L Total Protein 4.7 g/dL Albumin 2.0 g/dL Albumin/Globulin Ratio 0.7 STOOL CULTURE Final Final report STOOL CULT RES 1 Final No growth CAMPY Final Final report CAMPY RES 1 Final Comment No Campylobacter species isolated. SHIGA TOXIN Final Negative URINE CULTURE Final Final report URINE CULTURE RES 1 Final No growth BLOOD CULTURE Final NO GROWTH AFTER 5 DAYS Imaging: MRCP IMPRESSION: 1. No intra or extrahepatic biliary duct dilation. 2. Mild hepatic steatosis. UE US Impression: No evidence of left upper extremity DVT. PE: GEN: NAD - walking halls w/ therapy LUNGS: room air SKIN: jaundice improved NEURO/PSYCH: A & O 3 A/P: Jaundice/cholestasis - bili much better, Alk Phos elevated Marginal zone lymphoma, anemia, ELISE -- Bili improved, no obstruction on MRCP. ALEXANDER ROSS Dec 08, 2018 10:29
[2018-12-08] MEDS: DAPTOmycin (GENERIC) IVPB 460 MG in IV NORMAL SALINE 50ML 50 ML IV SCH (10:40)
[2018-12-08 10:56] VITALS: BP 163/74
[2018-12-08] MEDS: MICAFUNGIN 100 MG in IV DEXTROSE 5% 100ML 100 ML IV SCH (11:28)
--- NOTE | 2018-12-08 11:38 | PDOC ---
Infectious Disease Note Subjective: Subjective Feeling well walked in [address] with PT and OT Rash is better Denies F/C/N/V/D/SOA ROS: ROS Negative except for above. Vital Signs: Vital Signs Vital Signs Date Time Temp Pulse Resp B/P (MAP) Pulse Ox O2 Delivery O2 Flow Rate FiO2 12/08/18 10:56 98.4 94 18 163/74 (103) 94 Room Air 98.4 Physical Exam: PHYSICAL EXAM GENERAL: Propped up in bed, alert, NAD HEENT: Oral cavity clear, no thrush or lesions NECK: Supple LUNGS: Clear. HEART: S1, S2 regular. ABDOMEN: Obese, soft and nontender : Cote EXTREMITIES: Trace edema lower extremities , bilaterally. No cyanosis SKIN: Jaundiced, Maculopapular rash,,, right arm > left arm, fading [employer]: Alert, responds appropriately Port-A-Cath without signs of any complications . Medications: Inpatient Meds: Current Medications Medications (Trade) Dose Ordered Sig/Angeline Start Time Stop Time Status Last Admin Dose Admin Acetaminophen (Tylenol) 650 mg PRN Q6HRS PRN 12/03/18 07:45 12/08/18 09:11 650 MG Aspirin (Children'S Aspirin) 81 mg DAILY 12/03/18 09:00 12/08/18 08:51 81 MG Calcium Gluconate (Calcium Gluconate) 1,000 mg 1X ONCE 12/05/18 11:15 12/05/18 11:15 DC Calcium Gluconate 1000 mg/Dextrose 110 ml @ 220 mls/hr 1X ONCE 12/05/18 12:00 12/05/18 12:29 DC 12/05/18 12:45 220 MLS/HR Calcium/Vitamin D (Oscal D 500mg/ 200uts) 1 tab BIDWMEALS 12/05/18 17:00 12/08/18 08:51 1 TAB Ciprofloxacin/ Dextrose 200 ml @ 200 mls/hr Q12HR 12/03/18 09:00 12/07/18 15:42 DC 12/07/18 09:15 200 MLS/HR Clotrimazole (Mycelex-7) 1 ger DAILY 12/03/18 09:00 12/10/18 08:59 12/04/18 09:36 1 GER Daptomycin 460 mg/ Sodium Chloride 50 ml @ 100 mls/hr Q24H 12/03/18 09:00 12/08/18 10:40 100 MLS/HR Diphenhydramine HCl (Benadryl) 25 mg PRN Q6HRS PRN 12/03/18 04:45 Duloxetine HCl (Cymbalta) 30 mg DAILY 12/03/18 09:00 12/08/18 08:51 30 MG Heparin Sodium (Porcine) (Heparin Sodium) 5,000 unit Q8HRS 12/03/18 08:00 12/05/18 15:26 DC 12/05/18 15:18 5,000 UNIT Info (CONTRAST GIVEN -- Rx MONITORING) 1 each PRN DAILY PRN 12/03/18 00:30 12/05/18 00:29 DC Info ([facility] Electrolyte Protocol) 1 ea DAILY 12/03/18 09:00 12/06/18 07:33 1 EA Iohexol (Omnipaque 300 Mg/ml) 100 ml STK-MED ONCE 12/03/18 06:01 12/03/18 06:02 DC Levothyroxine Sodium (Synthroid) 100 mcg DAILY06 12/03/18 08:00 Cancel Lorazepam (Ativan) 0.5 mg PRN Q6HRS PRN 12/03/18 07:45 Magnesium Sulfate 50 ml @ 25 mls/hr 1X ONCE 12/03/18 10:00 12/03/18 11:59 DC 12/03/18 11:09 25 MLS/HR Magnesium Sulfate/ Dextrose 100 ml @ 100 mls/hr 1X ONCE 12/03/18 02:00 12/03/18 02:59 DC 12/03/18 02:08 100 MLS/HR Meropenem 1 gm/ Sodium Chloride 100 ml @ 200 mls/hr Q12HR 12/03/18 09:00 12/08/18 08:52 200 MLS/HR Micafungin Sodium 100 mg/Dextrose 100 ml @ 100 mls/hr Q24H 12/03/18 09:00 12/08/18 11:28 100 MLS/HR Morphine Sulfate (Morphine Sulfate) 2 mg PRN Q1HR PRN 12/03/18 07:45 Non-Formulary Medication 1 ea DAILY06 12/03/18 09:30 12/08/18 05:23 1 EA Norepinephrine Bitartrate 250 ml @ 1.875 mls/ hr CONT PRN 12/03/18 11:15 12/06/18 12:28 DC 12/04/18 14:24 11.63 MLS/HR Nystatin (Nystatin Oral Susp) 5 ml TID 12/03/18 09:00 12/03/18 10:21 DC Ondansetron HCl (Zofran Odt) 4 mg PRN Q6HRS PRN 12/07/18 11:30 Ondansetron HCl (Zofran) 4 mg PRN Q6HRS PRN 12/07/18 11:30 Oxycodone/ Acetaminophen (Percocet 5/325) 1 tab PRN Q4HRS PRN 12/03/18 07:45 Sodium Chloride 1,000 ml @ 75 mls/hr [id number] 12/05/18 11:45 12/07/18 10:00 DC 12/07/18 05:35 75 MLS/HR Sodium Chloride (Normal Saline Flush) 3 ml QSHIFT PRN 12/03/18 07:45 Tbo-Filgrastim (Granix) 480 mcg QHS 12/05/18 21:00 12/07/18 13:08 DC 12/06/18 21:35 480 MCG Vancomycin HCl (Vanco Per Pharmacy) 1 each PRN DAILY PRN 12/02/18 23:30 12/03/18 07:49 DC 12/03/18 03:45 1 EACH Vancomycin HCl (Vancomycin Trough Level) 1 each 1X ONCE 12/04/18 23:30 12/04/18 23:30 DC Vancomycin HCl (Vancomycin Oral Solution) 125 mg [id number] 12/03/18 09:00 12/05/18 11:39 DC 12/04/18 20:34 125 MG Vancomycin HCl 1.75 gm/Sodium Chloride 500 ml @ 250 mls/hr Q24H 12/04/18 00:00 12/04/18 00:00 DC Vancomycin HCl 2 gm/Sodium Chloride 500 ml @ 250 mls/hr 1X ONCE 12/03/18 00:30 12/03/18 02:29 DC 12/03/18 00:12 150 MLS/HR Vasopressin 40 unit/Dextrose 102 ml @ 6 mls/hr CONT PRN 12/03/18 15:00 12/06/18 12:45 DC 12/04/18 09:01 6 MLS/HR Labs: Lab Laboratory Tests Test 12/08/18 05:30 White Blood Count 5.4 x10^3/uL (4.0-11.0) Red Blood Count 3.37 x10^6/uL (3.50-5.40) Hemoglobin 8.9 g/dL (12.0-15.5) Hematocrit 27.2 % (36.0-47.0) Mean Corpuscular Volume 81 fL (79-100) Mean Corpuscular Hemoglobin 26 pg (25-35) Mean Corpuscular Hemoglobin Concent 33 g/dL (31-37) Red Cell Distribution Width 16.0 % (11.5-14.5) Platelet Count 74 x10^3/uL (140-400) Neutrophils (%) (Auto) 83 % (31-73) Lymphocytes (%) (Auto) 5 % (24-48) Monocytes (%) (Auto) 6 % (0-9) Eosinophils (%) (Auto) 6 % (0-3) Basophils (%) (Auto) 0 % (0-3) Neutrophils # (Auto) 4.5 x10^3uL (1.8-7.7) Lymphocytes # (Auto) 0.3 x10^3/uL (1.0-4.8) Monocytes # (Auto) 0.3 x10^3/uL (0.0-1.1) Eosinophils # (Auto) 0.3 x10^3/uL (0.0-0.7) Basophils # (Auto) 0.0 x10^3/uL (0.0-0.2) Sodium Level 145 mmol/L (136-145) Potassium Level 3.3 mmol/L (3.5-5.1) Chloride Level 108 mmol/L (98-107) Carbon Dioxide Level 29 mmol/L (21-32) Anion Gap 8 (6-14) Blood Urea Nitrogen 31 mg/dL (7-20) Creatinine 2.2 mg/dL (0.6-1.0) Estimated GFR (Cockcroft-Gault) 22.9 BUN/Creatinine Ratio 14 (6-20) Glucose Level 98 mg/dL (70-99) Calcium Level 9.0 mg/dL (8.5-10.1) Total Bilirubin 2.4 mg/dL (0.2-1.0) Aspartate Amino Transf (AST/SGOT) 28 U/L (15-37) Alanine Aminotransferase (ALT/SGPT) 47 U/L (14-59) Alkaline Phosphatase 616 U/L (46-116) Creatine Kinase 12 U/L (26-192) Total Protein 4.7 g/dL (6.4-8.2) Albumin 2.0 g/dL (3.4-5.0) Albumin/Globulin Ratio 0.7 (1.0-1.7) Objective: Assessment: Fever,resolved cult neg Pancytopenia,, WBC count now WNL Lactic acidosis resolved Rash ? from [place], resolving Dehydration ELISE Hypotension, now off vasopressors Marginal zone lymphoma ? Hepato/renal syndrome Hyperbilirubinemia,,,improving Allergy PCN and Sulfa Plan: Plan of Care cont meropenem DC Daptomycin and Micafungin ( 12/08) off Cipro 12/07 Stool studies neg Supportive care U/S of LUE negative for DVT D/w family D/w nursing JOIE CARMONA MD Dec 08, 2018 11:38
--- NOTE | 2018-12-08 12:32 | PDOC ---
PROGRESS NOTES Subjective Subjective HPI - f/u of Marginal zone lymphoma (NHL ROS - no fever Objective Objective Vital Signs Date Time Temp Pulse Resp B/P (MAP) Pulse Ox O2 Delivery O2 Flow Rate FiO2 12/08/18 10:56 98.4 94 18 163/74 (103) 94 Room Air 98.4 Intake and Output 12/08/18 06:59 Intake Total 1920 ml Output Total 7100 ml Balance -5180 ml Intake Oral 1920 ml Output Urine Total 7100 ml Physical Exam Heart: Normal S1, Normal S2 General: Alert, Oriented X3 Lungs: Clear to auscultation Neuro: Normal speech Psych/Mental Status: Mental status NL Assessment Assessment Assessment and Plan: 58-year-old female with marginal zone lymphoma who has completed bendamustine and rituximab C1, admitted for septic shock 1. Septic Shock, hypotension ,Fever: ID is involved, appreciate multidisciplinary assistance, on broad spec antimicrobials, I d/w Dr Hernandez. I d/w RN. Off vasopressors. Now afebrile. 2. diarrhea, poss colitis on ct? GI consulted. 3. Elevated bili: likely due to septic shock. Improving. 4. Marginal zone lymphoma (NHL): Chemotherapy on hold. s/p 1 cycle bendmustine and rituximab. Responding well, improved splenomegaly. Plan dose reduction of bendamustine with C2. Defer C2 till she recovers well. 5. Acute renal failure likely from septic shock, nephrology consulted. 6. Neutropenia due to sepsis/chemo -, Started granix 12/05/18 and d/c 12/07/18. WBC now normal.. Comment Review of Relevant I have reviewed the following items kike (where applicable) has been applied. Labs Laboratory Tests Test 12/07/18 05:45 12/08/18 05:30 White Blood Count 5.6 x10^3/uL (4.0-11.0) 5.4 x10^3/uL (4.0-11.0) Red Blood Count 3.17 x10^6/uL (3.50-5.40) 3.37 x10^6/uL (3.50-5.40) Hemoglobin 8.5 g/dL (12.0-15.5) 8.9 g/dL (12.0-15.5) Hematocrit 25.6 % (36.0-47.0) 27.2 % (36.0-47.0) Mean Corpuscular Volume 81 fL (79-100) 81 fL (79-100) Mean Corpuscular Hemoglobin 27 pg (25-35) 26 pg (25-35) Mean Corpuscular Hemoglobin Concent 33 g/dL (31-37) 33 g/dL (31-37) Red Cell Distribution Width 16.2 % (11.5-14.5) 16.0 % (11.5-14.5) Platelet Count 63 x10^3/uL (140-400) 74 x10^3/uL (140-400) Neutrophils (%) (Auto) 87 % (31-73) 83 % (31-73) Lymphocytes (%) (Auto) 4 % (24-48) 5 % (24-48) Monocytes (%) (Auto) 5 % (0-9) 6 % (0-9) Eosinophils (%) (Auto) 4 % (0-3) 6 % (0-3) Basophils (%) (Auto) 0 % (0-3) 0 % (0-3) Neutrophils # (Auto) 4.8 x10^3uL (1.8-7.7) 4.5 x10^3uL (1.8-7.7) Lymphocytes # (Auto) 0.2 x10^3/uL (1.0-4.8) 0.3 x10^3/uL (1.0-4.8) Monocytes # (Auto) 0.3 x10^3/uL (0.0-1.1) 0.3 x10^3/uL (0.0-1.1) Eosinophils # (Auto) 0.2 x10^3/uL (0.0-0.7) 0.3 x10^3/uL (0.0-0.7) Basophils # (Auto) 0.0 x10^3/uL (0.0-0.2) 0.0 x10^3/uL (0.0-0.2) Sodium Level 146 mmol/L (136-145) 145 mmol/L (136-145) Potassium Level 3.7 mmol/L (3.5-5.1) 3.3 mmol/L (3.5-5.1) Chloride Level 112 mmol/L (98-107) 108 mmol/L (98-107) Carbon Dioxide Level 25 mmol/L (21-32) 29 mmol/L (21-32) Anion Gap 9 (6-14) 8 (6-14) Blood Urea Nitrogen 38 mg/dL (7-20) 31 mg/dL (7-20) Creatinine 2.8 mg/dL (0.6-1.0) 2.2 mg/dL (0.6-1.0) Estimated GFR (Cockcroft-Gault) 17.4 22.9 BUN/Creatinine Ratio 14 (6-20) 14 (6-20) Glucose Level 89 mg/dL (70-99) 98 mg/dL (70-99) Calcium Level 8.3 mg/dL (8.5-10.1) 9.0 mg/dL (8.5-10.1) Total Bilirubin 3.5 mg/dL (0.2-1.0) 2.4 mg/dL (0.2-1.0) Aspartate Amino Transf (AST/SGOT) 36 U/L (15-37) 28 U/L (15-37) Alanine Aminotransferase (ALT/SGPT) 51 U/L (14-59) 47 U/L (14-59) Alkaline Phosphatase 593 U/L (46-116) 616 U/L (46-116) Total Protein 4.2 g/dL (6.4-8.2) 4.7 g/dL (6.4-8.2) Albumin 1.8 g/dL (3.4-5.0) 2.0 g/dL (3.4-5.0) Albumin/Globulin Ratio 0.8 (1.0-1.7) 0.7 (1.0-1.7) Creatine Kinase 12 U/L (26-192) Laboratory Tests Test 12/08/18 05:30 White Blood Count 5.4 x10^3/uL (4.0-11.0) Red Blood Count 3.37 x10^6/uL (3.50-5.40) Hemoglobin 8.9 g/dL (12.0-15.5) Hematocrit 27.2 % (36.0-47.0) Mean Corpuscular Volume 81 fL (79-100) Mean Corpuscular Hemoglobin 26 pg (25-35) Mean Corpuscular Hemoglobin Concent 33 g/dL (31-37) Red Cell Distribution Width 16.0 % (11.5-14.5) Platelet Count 74 x10^3/uL (140-400) Neutrophils (%) (Auto) 83 % (31-73) Lymphocytes (%) (Auto) 5 % (24-48) Monocytes (%) (Auto) 6 % (0-9) Eosinophils (%) (Auto) 6 % (0-3) Basophils (%) (Auto) 0 % (0-3) Neutrophils # (Auto) 4.5 x10^3uL (1.8-7.7) Lymphocytes # (Auto) 0.3 x10^3/uL (1.0-4.8) Monocytes # (Auto) 0.3 x10^3/uL (0.0-1.1) Eosinophils # (Auto) 0.3 x10^3/uL (0.0-0.7) Basophils # (Auto) 0.0 x10^3/uL (0.0-0.2) Sodium Level 145 mmol/L (136-145) Potassium Level 3.3 mmol/L (3.5-5.1) Chloride Level 108 mmol/L (98-107) Carbon Dioxide Level 29 mmol/L (21-32) Anion Gap 8 (6-14) Blood Urea Nitrogen 31 mg/dL (7-20) Creatinine 2.2 mg/dL (0.6-1.0) Estimated GFR (Cockcroft-Gault) 22.9 BUN/Creatinine Ratio 14 (6-20) Glucose Level 98 mg/dL (70-99) Calcium Level 9.0 mg/dL (8.5-10.1) Total Bilirubin 2.4 mg/dL (0.2-1.0) Aspartate Amino Transf (AST/SGOT) 28 U/L (15-37) Alanine Aminotransferase (ALT/SGPT) 47 U/L (14-59) Alkaline Phosphatase 616 U/L (46-116) Creatine Kinase 12 U/L (26-192) Total Protein 4.7 g/dL (6.4-8.2) Albumin 2.0 g/dL (3.4-5.0) Albumin/Globulin Ratio 0.7 (1.0-1.7) Microbiology 12/03/18 Blood Culture - Final, Complete NO GROWTH AFTER 5 DAYS 12/04/18 Stool Culture - Final, Complete 12/04/18 Stool Culture Result 1 (DANIAL) - Final, Complete 12/04/18 Campylobacter Antigen Assay - Final, Complete 12/04/18 Campylobactor Result 1 - Final, Complete 12/04/18 Shiga Toxin Test - Final, Complete 12/03/18 Urine Culture - Final, Complete 12/03/18 Urine Culture Result 1 (DANIAL) - Final, Complete Medications Current Medications Sodium Chloride 1,000 ml @ 1,000 mls/hr 1X ONCE IV Last administered on at 23:50; Start 12/02/18 at 23:30; Stop 12/03/18 at 00:29; Status DC Sodium Chloride 1,000 ml @ 1,000 mls/hr 1X ONCE IV Last administered on at 00:08; Start 12/02/18 at 23:30; Stop 12/03/18 at 00:29; Status DC Meropenem 1 gm/ Sodium Chloride 100 ml @ 200 mls/hr Q8HRS IV Last administered on 12/02/18at 23:51; Start 12/03/18 at 00:00; Stop 12/03/18 at 03:21 ; Status DC Vancomycin HCl (Vanco Per Pharmacy) 1 each PRN DAILY PRN MC SEE COMMENTS Last administered on 12/03/18at 03:45; Start 12/02/18 at 23:30; Stop 12/03/18 at 07:49 ; Status DC Vancomycin HCl 2 gm/Sodium Chloride 500 ml @ 250 mls/hr 1X ONCE IV Last administered on 12/03/18at 00:12; Start 12/03/18 at 00:30; Stop 12/03/18 at 02:29 ; Status DC Iohexol (Omnipaque 300 Mg/ml) 75 ml 1X ONCE IV Last administered on 12/03/18at 00:41; Start 12/03/18 at 01:00; Stop 12/03/18 at 01:01; Status DC Info (CONTRAST GIVEN -- Rx MONITORING) 1 each PRN DAILY PRN MC SEE COMMENTS; Start 12/03/18 at 00:30; Stop 12/05/18 at 00:29; Status DC Sodium Chloride 1,000 ml @ 1,000 mls/hr 1X ONCE IV Last administered on at 01:08; Start 12/03/18 at 01:00; Stop 12/03/18 at 01:59; Status DC Norepinephrine Bitartrate 250 ml @ 0 mls/hr 1X ONCE IV Last administered on at 01:24; Start 12/03/18 at 01:30; Stop 12/03/18 at 01:31; Status DC Diphenhydramine HCl (Benadryl) 25 mg 1X ONCE IVP Last administered on at 02:01; Start 12/03/18 at 02:00; Stop 12/03/18 at 02:01; Status DC Magnesium Sulfate/ Dextrose 100 ml @ 100 mls/hr 1X ONCE IV Last administered on 12/03/18at 02:08; Start 12/03/18 at 02:00; Stop 12/03/18 at 02:59; Status DC Aspirin (Children'S Aspirin) 324 mg 1X ONCE PO Last administered on 12/03/18at 01:59; Start 12/03/18 at 02:00; Stop 12/03/18 at 02:01; Status DC Sodium Chloride 1,000 ml @ 175 mls/hr Q5H43M IV Last administered on at 04:23; Start 12/03/18 at 03:30; Stop 12/04/18 at 03:29; Status DC Meropenem 1 gm/ Sodium Chloride 100 ml @ 200 mls/hr Q12HR IV Last administered on 12/08/18at 08:52; Start 12/03/18 at 09:00 Vancomycin HCl 1.75 gm/Sodium Chloride 500 ml @ 250 mls/hr Q24H IV ; Start at 00:00; Stop 12/04/18 at 00:00; Status DC Vancomycin HCl (Vancomycin Trough Level) 1 each 1X ONCE MC ; Start 12/04/18 at 23:30; Stop 12/04/18 at 23:30; Status DC Diphenhydramine HCl (Benadryl) 25 mg PRN Q6HRS PRN IVP ITCHING; Start 12/03/18 at 04:45 Iohexol (Omnipaque 300 Mg/ml) 100 ml STK-MED ONCE .ROUTE ; Start 12/03/18 at 06: 01; Stop 12/03/18 at 06:02; Status DC Vancomycin HCl (Vancomycin Oral Solution) 125 mg [id number] PO Last administered on 12/04/18 20:34; Start 12/03/18 at 09:00; Stop 12/05/18 at 11:39; Status DC Acetaminophen (Tylenol) 650 mg PRN Q6HRS PRN PO Headaches, Temp > 101.5' Last administered on 12/08/18 09:11; Start 12/03/18 at 07:45 Lorazepam (Ativan) 0.5 mg PRN Q6HRS PRN IV ANXIETY / AGITATION; Start 12/03/18 at 07:45 Ondansetron HCl (Zofran) 4 mg PRN Q6HRS PRN IV NAUSEA/VOMITING Last administered on 12/05/18 05:47; Start 12/03/18 at 07:45 Info (Icu Electrolyte Protocol) 1 ea DAILY MC Last administered on 12/06/18 07 :33; Start 12/03/18 at 09:00 Heparin Sodium (Porcine) (Heparin Sodium) 5,000 unit Q8HRS SQ Last administered on 12/05/18 15:18; Start 12/03/18 at 08:00; Stop 12/05/18 at 15:26 ; Status DC Sodium Chloride (Normal Saline Flush) 3 ml QSHIFT PRN IV AFTER MEDS AND BLOOD DRAWS; Start 12/03/18 at 07:45 Oxycodone/ Acetaminophen (Percocet 5/325) 1 tab PRN Q4HRS PRN PO MILD PAIN, 1ST CHOICE; Start 12/03/18 at 07:45 Morphine Sulfate (Morphine Sulfate) 2 mg PRN Q1HR PRN IV PAIN; Start 12/03/18 at 07:45 Aspirin (Children'S Aspirin) 81 mg DAILY PO Last administered on 12/08/18 08: 51; Start 12/03/18 at 09:00 Clotrimazole (Mycelex-7) 1 estefany DAILY VG Last administered on 12/04/18 09:36; Start 12/03/18 at 09:00; Stop 12/10/18 at 08:59 Duloxetine HCl (Cymbalta) 30 mg DAILY PO Last administered on 12/08/18at 08:51; Start 12/03/18 at 09:00 Levothyroxine Sodium (Synthroid) 100 mcg DAILY06 PO ; Start 12/03/18 at 08:00; Status Cancel Nystatin (Nystatin Oral Susp) 5 ml TID SWSW ; Start 12/03/18 at 09:00; Stop at 10:21; Status DC Ciprofloxacin/ Dextrose 200 ml @ 200 mls/hr Q12HR IV Last administered on 12/07at 09:15; Start 12/03/18 at 09:00; Stop 12/07/18 at 15:42; Status DC Daptomycin 460 mg/ Sodium Chloride 50 ml @ 100 mls/hr Q24H IV Last administered on 12/08/18at 10:40; Start 12/03/18 at 09:00; Stop 12/08/18 at 12:24 ; Status DC Micafungin Sodium 100 mg/Dextrose 100 ml @ 100 mls/hr Q24H IV Last administered on 12/08/18at 11:28; Start 12/03/18 at 09:00; Stop 12/08/18 at 12:24 ; Status DC Non-Formulary Medication 1 ea DAILY06 PO Last administered on 12/08/18at 05:23; Start 12/03/18 at 09:30 Magnesium Sulfate 50 ml @ 25 mls/hr 1X ONCE IV Last administered on 12/03/18at 11:09; Start 12/03/18 at 10:00; Stop 12/03/18 at 11:59; Status DC Norepinephrine Bitartrate 250 ml @ 1.875 mls/ hr CONT PRN IV SEE I/O RECORD Last administered on 12/04/18at 14:24; Start 12/03/18 at 11:15; Stop 12/06/18 at 12:28; Status DC Sodium Chloride 1,000 ml @ 999 mls/hr Q1H1M IV Last administered on 12/03/18at 14:24; Start 12/03/18 at 13:45; Stop 12/03/18 at 14:32; Status DC Vasopressin 40 unit/Dextrose 102 ml @ 6 mls/hr CONT PRN IV SEE I/O RECORD Last administered on 12/04/18at 09:01; Start 12/03/18 at 15:00; Stop 12/06/18 at 12:45 ; Status DC Sodium Chloride 1,000 ml @ 100 mls/hr Q10H IV Last administered on 12/05/18at 11:07; Start 12/04/18 at 20:45; Stop 12/05/18 at 11:34; Status DC Tbo-Filgrastim (Granix) 480 mcg QHS SQ Last administered on 12/06/18at 21:35; Start 12/05/18 at 21:00; Stop 12/07/18 at 13:08; Status DC Calcium Gluconate (Calcium Gluconate) 1,000 mg 1X ONCE IVP ; Start 12/05/18 at 11:15; Stop 12/05/18 at 11:15; Status DC Calcium/Vitamin D (Oscal D 500mg/ 200uts) 1 tab BIDWMEALS PO Last administered on 12/08/18at 08:51; Start 12/05/18 at 17:00 Calcium Gluconate 1000 mg/Dextrose 110 ml @ 220 mls/hr 1X ONCE IV Last administered on 12/05/18at 12:45; Start 12/05/18 at 12:00; Stop 12/05/18 at 12:29 ; Status DC Sodium Chloride 1,000 ml @ 75 mls/hr [id number] IV Last administered on at 05:35; Start 12/05/18 at 11:45; Stop 12/07/18 at 10:00; Status DC Ondansetron HCl (Zofran) 4 mg PRN Q6HRS PRN IV NAUSEA/VOMITING; Start 12/07/18 at 11:30 Ondansetron HCl (Zofran Odt) 4 mg PRN Q6HRS PRN PO NAUSEA/VOMITING; Start 12/07 at 11:30 Active Scripts Active Nystatin 100,000 Unit/1 Ml Oral.susp 5 Ml SWSW TID 3 Days Clotrimazole 45 Gm Cream.appl 1 Estefany VG DAILY 3 Days Levaquin (Levofloxacin) 500 Mg Tablet 500 Mg PO DAILY06 7 Days Reported Biotin 10,000 Mcg Capsule 10,000 Mcg PO DAILY Multivitamins (Multivitamin) 1 Each Tablet 1 Each PO DAILY Metoprolol Tartrate 25 Mg Tablet 25 Mg PO DAILY Cymbalta (Duloxetine Hcl) 30 Mg Capsule.dr 1 Cap PO DAILY Aspirin 81 Mg Tab.chew 1 Tab PO DAILY Synthroid (Levothyroxine Sodium) 88 Mcg Tablet 100 Mcg PO DAILY Climara (Estradiol) 1 Each Patch.tdwk Latanoprost 2.5 Ml Drops [address] [facility] Vitals/I & O Vital Sign - Last 24 Hours 12/07/18 12/07/18 12/07/18 12/07/18 15:00 19:35 20:00 23:09 Temp 98.2 98.4 98.8 98.2 98.4 98.8 Pulse 90 95 99 Resp 16 18 18 B/P (MAP) 150/71 (97) 143/62 (89) 144/76 (98) Pulse Ox 97 97 94 O2 Delivery Room Air Room Air Room Air Room Air 12/08/18 12/08/18 12/08/18 12/08/18 03:45 07:12 08:00 10:56 Temp 97.6 98.2 98.4 97.6 98.2 98.4 Pulse 101 105 94 Resp 18 18 B/P (MAP) 160/83 (108) 144/79 (100) 163/74 (103) Pulse Ox 95 95 94 O2 Delivery Room Air Room Air Room Air Room Air Intake and Output 12/07/18 12/07/18 12/08/18 14:59 22:59 06:59 Intake Total 480 ml 1390 ml 50 ml Output Total 2550 ml 2300 ml 2250 ml Balance -2070 ml -910 ml -2200 ml SANGEETA HERNANDEZ MD Dec 08, 2018 12:32
--- NOTE | 2018-12-08 13:01 | PDOC ---
PROGRESS NOTES Chief Complaint Chief Complaint Marginal zone lymphoma on chemotherapy Neutropenic fever, last chemotherapy November 16, 2018 Anemia of chronic disease Septic shock-off levophed Urine culture, blood culture negative Diarrhea 1 episode Colitis on CAT scan Left arm swelling-previous IV site Bilateral leg edema secondary to IV fluid resuscitation AK I VMN-better INdWelling right-sided Port-A-Cath for chemotherapy NEg DVT left arm-previous site of IV NOn Sustained V. tach, asymptomatic, 12/08/18 full Code History of Present Illness History of Present Illness SHe was a transfer from ICU and was there because of septic shock likely from colitis needing levophed Blood pressure meds have been on hold naturally Now had nonsustained V. tach may be 6 beats total asymptomatic Beta iqra has been on hold because of hypotension in the ICU and needing levophed Urine culture blood culture negative and also stool cx neg She complains of left arm swelling and pain - previous IV site - BUT NEG FOR DVT She has a right indwelling Port-A-Cath for chemotherapy that started first week of November - Dr Jenkins Legs are also bilaterally swollen from IV resuscitation, slowly getting better She still weak. vogt dcd and voiding fione NO PO issues Plan: WArm compresses and exercises to the arm - done by OT RE Start metoprolol Keep on telemetry for now Watch out for hypotension Avoid Nephrotoxins So far creatinine improving/kidney stable Still on IV meropenem Merem and IV dapto per ID dw pt and RN Vitals Vitals Vital Signs Date Time Temp Pulse Resp B/P (MAP) Pulse Ox O2 Delivery O2 Flow Rate FiO2 12/08/18 10:56 98.4 94 18 163/74 (103) 94 Room Air 98.4 Physical Exam Physical Exam GENERAL: Propped up in bed, alert, NAD HEENT: Oral cavity clear, no thrush or lesions NECK: Supple LUNGS: Clear. HEART: S1, S2 regular. ABDOMEN: Obese, soft and nontender : Vogt EXTREMITIES: Trace edema lower extremities , bilaterally. 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 General: Alert, Oriented X3 Heart: Normal S1, Normal S2 Lungs: Clear Abdomen: No tenderness Extremities: No clubbing, No cyanosis, Other (1+ bilateral LE pitting edema, tender and swollen left arm, mostly elbow) Skin: No breakdown, No significant lesion Labs LABS Laboratory Tests Test 12/08/18 05:30 White Blood Count 5.4 x10^3/uL (4.0-11.0) Red Blood Count 3.37 x10^6/uL (3.50-5.40) Hemoglobin 8.9 g/dL (12.0-15.5) Hematocrit 27.2 % (36.0-47.0) Mean Corpuscular Volume 81 fL (79-100) Mean Corpuscular Hemoglobin 26 pg (25-35) Mean Corpuscular Hemoglobin Concent 33 g/dL (31-37) Red Cell Distribution Width 16.0 % (11.5-14.5) Platelet Count 74 x10^3/uL (140-400) Neutrophils (%) (Auto) 83 % (31-73) Lymphocytes (%) (Auto) 5 % (24-48) Monocytes (%) (Auto) 6 % (0-9) Eosinophils (%) (Auto) 6 % (0-3) Basophils (%) (Auto) 0 % (0-3) Neutrophils # (Auto) 4.5 x10^3uL (1.8-7.7) Lymphocytes # (Auto) 0.3 x10^3/uL (1.0-4.8) Monocytes # (Auto) 0.3 x10^3/uL (0.0-1.1) Eosinophils # (Auto) 0.3 x10^3/uL (0.0-0.7) Basophils # (Auto) 0.0 x10^3/uL (0.0-0.2) Sodium Level 145 mmol/L (136-145) Potassium Level 3.3 mmol/L (3.5-5.1) Chloride Level 108 mmol/L (98-107) Carbon Dioxide Level 29 mmol/L (21-32) Anion Gap 8 (6-14) Blood Urea Nitrogen 31 mg/dL (7-20) Creatinine 2.2 mg/dL (0.6-1.0) Estimated GFR (Cockcroft-Gault) 22.9 BUN/Creatinine Ratio 14 (6-20) Glucose Level 98 mg/dL (70-99) Calcium Level 9.0 mg/dL (8.5-10.1) Total Bilirubin 2.4 mg/dL (0.2-1.0) Aspartate Amino Transf (AST/SGOT) 28 U/L (15-37) Alanine Aminotransferase (ALT/SGPT) 47 U/L (14-59) Alkaline Phosphatase 616 U/L (46-116) Creatine Kinase 12 U/L (26-192) Total Protein 4.7 g/dL (6.4-8.2) Albumin 2.0 g/dL (3.4-5.0) Albumin/Globulin Ratio 0.7 (1.0-1.7) Review of Systems Review of Systems A 14 point ROS was completed with the following noted as positive: Other systems reviewed and negative. \CONSTITUTIONAL: No fever or chills EYES: No recent changes SKIN: No rash or itching CARDIOVASCULAR: No chest pain, syncope, palpitations, or edema RESPIRATORY: No SOB or cough GASTROINTESTINAL: No nausea, vomiting or abdominal pain NEUROLOGICAL: No headaches or weakness ENDOCRINE: No cold or heat intolerance GENITOURINARY: No urgency or frequency of urination MUSCULOSKELETAL: No back pain or joint pain LYMPHATICS: No enlarged lymph nodes PSYCHIATRIC: No anxiety or depression Comment Review of Relevant I have reviewed the following items kike (where applicable) has been applied. Labs Laboratory Tests Test 12/07/18 05:45 12/08/18 05:30 White Blood Count 5.6 x10^3/uL (4.0-11.0) 5.4 x10^3/uL (4.0-11.0) Red Blood Count 3.17 x10^6/uL (3.50-5.40) 3.37 x10^6/uL (3.50-5.40) Hemoglobin 8.5 g/dL (12.0-15.5) 8.9 g/dL (12.0-15.5) Hematocrit 25.6 % (36.0-47.0) 27.2 % (36.0-47.0) Mean Corpuscular Volume 81 fL (79-100) 81 fL (79-100) Mean Corpuscular Hemoglobin 27 pg (25-35) 26 pg (25-35) Mean Corpuscular Hemoglobin Concent 33 g/dL (31-37) 33 g/dL (31-37) Red Cell Distribution Width 16.2 % (11.5-14.5) 16.0 % (11.5-14.5) Platelet Count 63 x10^3/uL (140-400) 74 x10^3/uL (140-400) Neutrophils (%) (Auto) 87 % (31-73) 83 % (31-73) Lymphocytes (%) (Auto) 4 % (24-48) 5 % (24-48) Monocytes (%) (Auto) 5 % (0-9) 6 % (0-9) Eosinophils (%) (Auto) 4 % (0-3) 6 % (0-3) Basophils (%) (Auto) 0 % (0-3) 0 % (0-3) Neutrophils # (Auto) 4.8 x10^3uL (1.8-7.7) 4.5 x10^3uL (1.8-7.7) Lymphocytes # (Auto) 0.2 x10^3/uL (1.0-4.8) 0.3 x10^3/uL (1.0-4.8) Monocytes # (Auto) 0.3 x10^3/uL (0.0-1.1) 0.3 x10^3/uL (0.0-1.1) Eosinophils # (Auto) 0.2 x10^3/uL (0.0-0.7) 0.3 x10^3/uL (0.0-0.7) Basophils # (Auto) 0.0 x10^3/uL (0.0-0.2) 0.0 x10^3/uL (0.0-0.2) Sodium Level 146 mmol/L (136-145) 145 mmol/L (136-145) Potassium Level 3.7 mmol/L (3.5-5.1) 3.3 mmol/L (3.5-5.1) Chloride Level 112 mmol/L (98-107) 108 mmol/L (98-107) Carbon Dioxide Level 25 mmol/L (21-32) 29 mmol/L (21-32) Anion Gap 9 (6-14) 8 (6-14) Blood Urea Nitrogen 38 mg/dL (7-20) 31 mg/dL (7-20) Creatinine 2.8 mg/dL (0.6-1.0) 2.2 mg/dL (0.6-1.0) Estimated GFR (Cockcroft-Gault) 17.4 22.9 BUN/Creatinine Ratio 14 (6-20) 14 (6-20) Glucose Level 89 mg/dL (70-99) 98 mg/dL (70-99) Calcium Level 8.3 mg/dL (8.5-10.1) 9.0 mg/dL (8.5-10.1) Total Bilirubin 3.5 mg/dL (0.2-1.0) 2.4 mg/dL (0.2-1.0) Aspartate Amino Transf (AST/SGOT) 36 U/L (15-37) 28 U/L (15-37) Alanine Aminotransferase (ALT/SGPT) 51 U/L (14-59) 47 U/L (14-59) Alkaline Phosphatase 593 U/L (46-116) 616 U/L (46-116) Total Protein 4.2 g/dL (6.4-8.2) 4.7 g/dL (6.4-8.2) Albumin 1.8 g/dL (3.4-5.0) 2.0 g/dL (3.4-5.0) Albumin/Globulin Ratio 0.8 (1.0-1.7) 0.7 (1.0-1.7) Creatine Kinase 12 U/L (26-192) Laboratory Tests Test 12/08/18 05:30 White Blood Count 5.4 x10^3/uL (4.0-11.0) Red Blood Count 3.37 x10^6/uL (3.50-5.40) Hemoglobin 8.9 g/dL (12.0-15.5) Hematocrit 27.2 % (36.0-47.0) Mean Corpuscular Volume 81 fL (79-100) Mean Corpuscular Hemoglobin 26 pg (25-35) Mean Corpuscular Hemoglobin Concent 33 g/dL (31-37) Red Cell Distribution Width 16.0 % (11.5-14.5) Platelet Count 74 x10^3/uL (140-400) Neutrophils (%) (Auto) 83 % (31-73) Lymphocytes (%) (Auto) 5 % (24-48) Monocytes (%) (Auto) 6 % (0-9) Eosinophils (%) (Auto) 6 % (0-3) Basophils (%) (Auto) 0 % (0-3) Neutrophils # (Auto) 4.5 x10^3uL (1.8-7.7) Lymphocytes # (Auto) 0.3 x10^3/uL (1.0-4.8) Monocytes # (Auto) 0.3 x10^3/uL (0.0-1.1) Eosinophils # (Auto) 0.3 x10^3/uL (0.0-0.7) Basophils # (Auto) 0.0 x10^3/uL (0.0-0.2) Sodium Level 145 mmol/L (136-145) Potassium Level 3.3 mmol/L (3.5-5.1) Chloride Level 108 mmol/L (98-107) Carbon Dioxide Level 29 mmol/L (21-32) Anion Gap 8 (6-14) Blood Urea Nitrogen 31 mg/dL (7-20) Creatinine 2.2 mg/dL (0.6-1.0) Estimated GFR (Cockcroft-Gault) 22.9 BUN/Creatinine Ratio 14 (6-20) Glucose Level 98 mg/dL (70-99) Calcium Level 9.0 mg/dL (8.5-10.1) Total Bilirubin 2.4 mg/dL (0.2-1.0) Aspartate Amino Transf (AST/SGOT) 28 U/L (15-37) Alanine Aminotransferase (ALT/SGPT) 47 U/L (14-59) Alkaline Phosphatase 616 U/L (46-116) Creatine Kinase 12 U/L (26-192) Total Protein 4.7 g/dL (6.4-8.2) Albumin 2.0 g/dL (3.4-5.0) Albumin/Globulin Ratio 0.7 (1.0-1.7) Microbiology 12/03/18 Blood Culture - Final, Complete NO GROWTH AFTER 5 DAYS 12/04/18 Stool Culture - Final, Complete 12/04/18 Stool Culture Result 1 (DANIAL) - Final, Complete 12/04/18 Campylobacter Antigen Assay - Final, Complete 12/04/18 Campylobactor Result 1 - Final, Complete 12/04/18 Shiga Toxin Test - Final, Complete 12/03/18 Urine Culture - Final, Complete 12/03/18 Urine Culture Result 1 (DANIAL) - Final, Complete Medications Current Medications Sodium Chloride 1,000 ml @ 1,000 mls/hr 1X ONCE IV Last administered on at 23:50; Start 12/02/18 at 23:30; Stop 12/03/18 at 00:29; Status DC Sodium Chloride 1,000 ml @ 1,000 mls/hr 1X ONCE IV Last administered on at 00:08; Start 12/02/18 at 23:30; Stop 12/03/18 at 00:29; Status DC Meropenem 1 gm/ Sodium Chloride 100 ml @ 200 mls/hr Q8HRS IV Last administered on 12/02/18at 23:51; Start 12/03/18 at 00:00; Stop 12/03/18 at 03:21 ; Status DC Vancomycin HCl (Vanco Per Pharmacy) 1 each PRN DAILY PRN MC SEE COMMENTS Last administered on 12/03/18at 03:45; Start 12/02/18 at 23:30; Stop 12/03/18 at 07:49 ; Status DC Vancomycin HCl 2 gm/Sodium Chloride 500 ml @ 250 mls/hr 1X ONCE IV Last administered on 12/03/18at 00:12; Start 12/03/18 at 00:30; Stop 12/03/18 at 02:29 ; Status DC Iohexol (Omnipaque 300 Mg/ml) 75 ml 1X ONCE IV Last administered on 12/03/18at 00:41; Start 12/03/18 at 01:00; Stop 12/03/18 at 01:01; Status DC Info (CONTRAST GIVEN -- Rx MONITORING) 1 each PRN DAILY PRN MC SEE COMMENTS; Start 12/03/18 at 00:30; Stop 12/05/18 at 00:29; Status DC Sodium Chloride 1,000 ml @ 1,000 mls/hr 1X ONCE IV Last administered on at 01:08; Start 12/03/18 at 01:00; Stop 12/03/18 at 01:59; Status DC Norepinephrine Bitartrate 250 ml @ 0 mls/hr 1X ONCE IV Last administered on at 01:24; Start 12/03/18 at 01:30; Stop 12/03/18 at 01:31; Status DC Diphenhydramine HCl (Benadryl) 25 mg 1X ONCE IVP Last administered on at 02:01; Start 12/03/18 at 02:00; Stop 12/03/18 at 02:01; Status DC Magnesium Sulfate/ Dextrose 100 ml @ 100 mls/hr 1X ONCE IV Last administered on 12/03/18at 02:08; Start 12/03/18 at 02:00; Stop 12/03/18 at 02:59; Status DC Aspirin (Children'S Aspirin) 324 mg 1X ONCE PO Last administered on 12/03/18at 01:59; Start 12/03/18 at 02:00; Stop 12/03/18 at 02:01; Status DC Sodium Chloride 1,000 ml @ 175 mls/hr Q5H43M IV Last administered on at 04:23; Start 12/03/18 at 03:30; Stop 12/04/18 at 03:29; Status DC Meropenem 1 gm/ Sodium Chloride 100 ml @ 200 mls/hr Q12HR IV Last administered on 12/08/18at 08:52; Start 12/03/18 at 09:00 Vancomycin HCl 1.75 gm/Sodium Chloride 500 ml @ 250 mls/hr Q24H IV ; Start at 00:00; Stop 12/04/18 at 00:00; Status DC Vancomycin HCl (Vancomycin Trough Level) 1 each 1X ONCE MC ; Start 12/04/18 at 23:30; Stop 12/04/18 at 23:30; Status DC Diphenhydramine HCl (Benadryl) 25 mg PRN Q6HRS PRN IVP ITCHING; Start 12/03/18 at 04:45 Iohexol (Omnipaque 300 Mg/ml) 100 ml STK-MED ONCE .ROUTE ; Start 12/03/18 at 06: 01; Stop 12/03/18 at 06:02; Status DC Vancomycin HCl (Vancomycin Oral Solution) 125 mg [id number] PO Last administered on 12/04/18at 20:34; Start 12/03/18 at 09:00; Stop 12/05/18 at 11:39; Status DC Acetaminophen (Tylenol) 650 mg PRN Q6HRS PRN PO Headaches, Temp > 101.5' Last administered on 3/25/19at 09:11; Start 12/03/18 at 07:45 Lorazepam (Ativan) 0.5 mg PRN Q6HRS PRN IV ANXIETY / AGITATION; Start 12/03/18 at 07:45 Ondansetron HCl (Zofran) 4 mg PRN Q6HRS PRN IV NAUSEA/VOMITING Last administered on 12/05/18 05:47; Start 12/03/18 at 07:45 Info (Icu Electrolyte Protocol) 1 ea DAILY MC Last administered on 12/06/18 07 :33; Start 12/03/18 at 09:00 Heparin Sodium (Porcine) (Heparin Sodium) 5,000 unit Q8HRS SQ Last administered on 12/05/18 15:18; Start 12/03/18 at 08:00; Stop 12/05/18 at 15:26 ; Status DC Sodium Chloride (Normal Saline Flush) 3 ml QSHIFT PRN IV AFTER MEDS AND BLOOD DRAWS; Start 12/03/18 at 07:45 Oxycodone/ Acetaminophen (Percocet 5/325) 1 tab PRN Q4HRS PRN PO MILD PAIN, 1ST CHOICE; Start 12/03/18 at 07:45 Morphine Sulfate (Morphine Sulfate) 2 mg PRN Q1HR PRN IV PAIN; Start 12/03/18 at 07:45 Aspirin (Children'S Aspirin) 81 mg DAILY PO Last administered on 12/08/18 08: 51; Start 12/03/18 at 09:00 Clotrimazole (Mycelex-7) 1 estefany DAILY VG Last administered on 12/04/18 09:36; Start 12/03/18 at 09:00; Stop 12/10/18 at 08:59 Duloxetine HCl (Cymbalta) 30 mg DAILY PO Last administered on 12/08/18 08:51; Start 12/03/18 at 09:00 Levothyroxine Sodium (Synthroid) 100 mcg DAILY06 PO ; Start 12/03/18 at 08:00; Status Cancel Nystatin (Nystatin Oral Susp) 5 ml TID SWSW ; Start 12/03/18 at 09:00; Stop at 10:21; Status DC Ciprofloxacin/ Dextrose 200 ml @ 200 mls/hr Q12HR IV Last administered on 3/24 /19at 09:15; Start 12/03/18 at 09:00; Stop 12/07/18 at 15:42; Status DC Daptomycin 460 mg/ Sodium Chloride 50 ml @ 100 mls/hr Q24H IV Last administered on 12/08/18at 10:40; Start 12/03/18 at 09:00; Stop 12/08/18 at 12:24 ; Status DC Micafungin Sodium 100 mg/Dextrose 100 ml @ 100 mls/hr Q24H IV Last administered on 12/08/18at 11:28; Start 12/03/18 at 09:00; Stop 12/08/18 at 12:24 ; Status DC Non-Formulary Medication 1 ea DAILY06 PO Last administered on 12/08/18at 05:23; Start 12/03/18 at 09:30 Magnesium Sulfate 50 ml @ 25 mls/hr 1X ONCE IV Last administered on 12/03/18at 11:09; Start 12/03/18 at 10:00; Stop 12/03/18 at 11:59; Status DC Norepinephrine Bitartrate 250 ml @ 1.875 mls/ hr CONT PRN IV SEE I/O RECORD Last administered on 12/04/18at 14:24; Start 12/03/18 at 11:15; Stop 12/06/18 at 12:28; Status DC Sodium Chloride 1,000 ml @ 999 mls/hr Q1H1M IV Last administered on 12/03/18at 14:24; Start 12/03/18 at 13:45; Stop 12/03/18 at 14:32; Status DC Vasopressin 40 unit/Dextrose 102 ml @ 6 mls/hr CONT PRN IV SEE I/O RECORD Last administered on 12/04/18at 09:01; Start 12/03/18 at 15:00; Stop 12/06/18 at 12:45 ; Status DC Sodium Chloride 1,000 ml @ 100 mls/hr Q10H IV Last administered on 12/05/18at 11:07; Start 12/04/18 at 20:45; Stop 12/05/18 at 11:34; Status DC Tbo-Filgrastim (Granix) 480 mcg QHS SQ Last administered on 12/06/18at 21:35; Start 12/05/18 at 21:00; Stop 12/07/18 at 13:08; Status DC Calcium Gluconate (Calcium Gluconate) 1,000 mg 1X ONCE IVP ; Start 12/05/18 at 11:15; Stop 12/05/18 at 11:15; Status DC Calcium/Vitamin D (Oscal D 500mg/ 200uts) 1 tab BIDWMEALS PO Last administered on 12/08/18at 08:51; Start 12/05/18 at 17:00 Calcium Gluconate 1000 mg/Dextrose 110 ml @ 220 mls/hr 1X ONCE IV Last administered on 12/05/18at 12:45; Start 12/05/18 at 12:00; Stop 12/05/18 at 12:29 ; Status DC Sodium Chloride 1,000 ml @ 75 mls/hr [id number] IV Last administered on at 05:35; Start 12/05/18 at 11:45; Stop 12/07/18 at 10:00; Status DC Ondansetron HCl (Zofran) 4 mg PRN Q6HRS PRN IV NAUSEA/VOMITING; Start 12/07/18 at 11:30 Ondansetron HCl (Zofran Odt) 4 mg PRN Q6HRS PRN PO NAUSEA/VOMITING; Start 12/07 at 11:30 Active Scripts Active Nystatin 100,000 Unit/1 Ml Oral.susp 5 Ml SWSW TID 3 Days Clotrimazole 45 Gm Cream.appl 1 Estefany VG DAILY 3 Days Levaquin (Levofloxacin) 500 Mg Tablet 500 Mg PO DAILY06 7 Days Reported Biotin 10,000 Mcg Capsule 10,000 Mcg PO DAILY Multivitamins (Multivitamin) 1 Each Tablet 1 Each PO DAILY Metoprolol Tartrate 25 Mg Tablet 25 Mg PO DAILY Cymbalta (Duloxetine Hcl) 30 Mg Capsule.dr 1 Cap PO DAILY Aspirin 81 Mg Tab.chew 1 Tab PO DAILY Synthroid (Levothyroxine Sodium) 88 Mcg Tablet 100 Mcg PO DAILY Climara (Estradiol) 1 Each Patch.tdwk Latanoprost 2.5 Ml Drops 1 Drop EACHEYE QHS Vitals/I & O Vital Sign - Last 24 Hours 12/07/18 12/07/18 12/07/18 12/07/18 15:00 19:35 20:00 23:09 Temp 98.2 98.4 98.8 98.2 98.4 98.8 Pulse 90 95 99 Resp 16 18 18 B/P (MAP) 150/71 (97) 143/62 (89) 144/76 (98) Pulse Ox 97 97 94 O2 Delivery Room Air Room Air Room Air Room Air 12/08/18 12/08/18 12/08/18 12/08/18 03:45 07:12 08:00 10:56 Temp 97.6 98.2 98.4 97.6 98.2 98.4 Pulse 101 105 94 Resp 18 17 18 B/P (MAP) 160/83 (108) 144/79 (100) 163/74 (103) Pulse Ox 95 95 94 O2 Delivery Room Air Room Air Room Air Room Air Intake and Output 12/07/18 12/07/18 12/08/18 14:59 22:59 06:59 Intake Total 480 ml 1390 ml 50 ml Output Total 2550 ml 2300 ml 2250 ml Balance -2070 ml -910 ml -2200 ml GUERITA CONTRERAS MD Dec 08, 2018 13:01
--- NOTE | 2018-12-08 13:28 | PDOC ---
Renal-Progress Notes Subjective Notes Notes FEELS PUFFY BUT BETTER History of Present Illness Hx of present illness STABLE Vitals Vitals Vital Signs Date Time Temp Pulse Resp B/P (MAP) Pulse Ox O2 Delivery O2 Flow Rate FiO2 12/08/18 10:56 98.4 94 18 163/74 (103) 94 Room Air 98.4 Weight Weight [ ] I.O. Intake and Output Intake and Output 12/08/18 06:59 Intake Total 1920 ml Output Total 7100 ml Balance -5180 ml Intake Oral 1920 ml Output Urine Total 7100 ml Labs Labs Laboratory Tests Test 12/08/18 05:30 White Blood Count 5.4 x10^3/uL (4.0-11.0) Red Blood Count 3.37 x10^6/uL (3.50-5.40) Hemoglobin 8.9 g/dL (12.0-15.5) Hematocrit 27.2 % (36.0-47.0) Mean Corpuscular Volume 81 fL (79-100) Mean Corpuscular Hemoglobin 26 pg (25-35) Mean Corpuscular Hemoglobin Concent 33 g/dL (31-37) Red Cell Distribution Width 16.0 % (11.5-14.5) Platelet Count 74 x10^3/uL (140-400) Neutrophils (%) (Auto) 83 % (31-73) Lymphocytes (%) (Auto) 5 % (24-48) Monocytes (%) (Auto) 6 % (0-9) Eosinophils (%) (Auto) 6 % (0-3) Basophils (%) (Auto) 0 % (0-3) Neutrophils # (Auto) 4.5 x10^3uL (1.8-7.7) Lymphocytes # (Auto) 0.3 x10^3/uL (1.0-4.8) Monocytes # (Auto) 0.3 x10^3/uL (0.0-1.1) Eosinophils # (Auto) 0.3 x10^3/uL (0.0-0.7) Basophils # (Auto) 0.0 x10^3/uL (0.0-0.2) Sodium Level 145 mmol/L (136-145) Potassium Level 3.3 mmol/L (3.5-5.1) Chloride Level 108 mmol/L (98-107) Carbon Dioxide Level 29 mmol/L (21-32) Anion Gap 8 (6-14) Blood Urea Nitrogen 31 mg/dL (7-20) Creatinine 2.2 mg/dL (0.6-1.0) Estimated GFR (Cockcroft-Gault) 22.9 BUN/Creatinine Ratio 14 (6-20) Glucose Level 98 mg/dL (70-99) Calcium Level 9.0 mg/dL (8.5-10.1) Total Bilirubin 2.4 mg/dL (0.2-1.0) Aspartate Amino Transf (AST/SGOT) 28 U/L (15-37) Alanine Aminotransferase (ALT/SGPT) 47 U/L (14-59) Alkaline Phosphatase 616 U/L (46-116) Creatine Kinase 12 U/L (26-192) Total Protein 4.7 g/dL (6.4-8.2) Albumin 2.0 g/dL (3.4-5.0) Albumin/Globulin Ratio 0.7 (1.0-1.7) Micro Micro Microbiology 12/03/18 Blood Culture - Final, Complete NO GROWTH AFTER 5 DAYS 12/04/18 Stool Culture - Final, Complete 12/04/18 Stool Culture Result 1 (DANIAL) - Final, Complete 12/04/18 Campylobacter Antigen Assay - Final, Complete 12/04/18 Campylobactor Result 1 - Final, Complete 12/04/18 Shiga Toxin Test - Final, Complete 12/03/18 Urine Culture - Final, Complete 12/03/18 Urine Culture Result 1 (DANIAL) - Final, Complete Review of Systems Constitutional: yes: weakness, alert, oriented Ears/Nose/Throat: Yes: no symptom reported Eyes: Yes: no symptom reported Pulmonary: Yes no symptom reported Cardiovascular: Yes edema Gastrointestional: Yes: no symptom reported Genitourinary: Yes: no symptom reported Musculoskeletal: Yes: no symptom reported Skin: Yes no symptom reported Psychiatric/Neurological: Yes: no symptom reported Physical Exam General Appearance: no apparent distress Skin: warm, dry Respiratory: decreased breath sounds Heart: S1S2 Abdomen: soft, bowel sounds present Genitourinary: bladder flat Extremities: pulses present Neurology: alert, oriented Musculoskeletal: Osteoarthritis Assessment Assessment IMP ELISE-IMPROVING WITH CR DOWN TO 2.2 FROM 3.4 GENERALIZED EDEMA RECENT SEPSIS LYMPHOMA S/P CHEMO PLAN ENC PO FLUIDS EXPECT RENAL RECOVERY LABS IN AM ANTIBIOTICS ROJAS,REENA S MD Dec 08, 2018 13:28
[2018-12-08] MEDS: METOPROLOL TART IMMED RELEASE 25 MG TABLET. PO SCH ×3 (13:56→21:03)
[2018-12-08 14:49] VITALS: BP 136/65
[2018-12-08 19:47] VITALS: BP 145/71
[2018-12-08 22:46] VITALS: BP 138/59
[2018-12-09 02:41] VITALS: BP 149/83
[2018-12-09] MEDS: SYNTHROID 100 MCG PO SCH (06:42)
[2018-12-09 07:04] LABS: CALCIUM 8.6 mg/dL (8.5-10.1); CREATININE 1.6 mg/dL (0.6-1.0); GFR 33.1; POTASSIUM 3.1 mmol/L (3.5-5.1)
[2018-12-09 07:07] VITALS: BP 154/86
[2018-12-09] MEDS: DULoxetine HCL 30 MG CAPSULE.DR PO SCH (08:41)
[2018-12-09] MEDS: MEROPENEM 1 GM in IV NORMAL SALINE 100ML 100 ML IV SCH (08:41)
[2018-12-09] MEDS: ASPIRIN CHEWABLE 81 MG TABLET. PO SCH (08:41)
[2018-12-09] MEDS: METOPROLOL TART IMMED RELEASE 50 MG TABLET. PO SCH ×2 (08:49→21:14)
[2018-12-09] MEDS: CLOTRIMAZOLE 1% VAGINAL CREAM 45GM TUBE. VG SCH (08:50)
[2018-12-09] MEDS: CALCIUM CARB/VIT D3 500/200 TABLET. PO SCH ×2 (08:50→17:31)
--- NOTE | 2018-12-09 09:08 | PDOC ---
PROGRESS NOTES Subjective Subjective HPI - f/u of Marginal zone lymphoma (NHL) ROS - no fever Objective Objective Vital Signs Date Time Temp Pulse Resp B/P (MAP) Pulse Ox O2 Delivery O2 Flow Rate FiO2 12/09/18 08:49 98 154/86 12/09/18 07:07 98.7 18 94 Room Air 98.7 Intake and Output 12/09/18 06:59 Intake Total 800 ml Output Total 1700 ml Balance -900 ml Intake Oral 800 ml Output Urine Total 1700 ml # Voids 4 Physical Exam Heart: Normal S1, Normal S2 General: Alert, Oriented X3, No acute distress Lungs: Clear to auscultation Neuro: Normal speech Psych/Mental Status: Mental status NL Assessment Assessment Assessment and Plan: 58-year-old female with marginal zone lymphoma who has completed bendamustine and rituximab C1, admitted for septic shock 1. Septic Shock, hypotension ,Fever: ID is involved, appreciate multidisciplinary assistance, on broad spec antimicrobials, I d/w Dr Hernandez. I d/w RN. Off vasopressors. Now afebrile. 2. diarrhea, poss colitis on ct? GI consulted. 3. Elevated bili: likely due to septic shock. Improving. 4. Marginal zone lymphoma (NHL): Chemotherapy on hold. s/p 1 cycle bendmustine and rituximab. Responding well, improved splenomegaly. Plan dose reduction of bendamustine with C2. Defer C2 till she recovers well. 5. Acute renal failure likely from septic shock, nephrology consulted. 6. Neutropenia due to sepsis/chemo -, Started granix 12/05/18 and d/c 12/07/18. WBC now normal.. 7. Anemia, stable 8.5 Comment Review of Relevant I have reviewed the following items kike (where applicable) has been applied. Labs Laboratory Tests Test 12/08/18 05:30 12/09/18 06:42 White Blood Count 5.4 x10^3/uL (4.0-11.0) Red Blood Count 3.37 x10^6/uL (3.50-5.40) Hemoglobin 8.9 g/dL (12.0-15.5) Hematocrit 27.2 % (36.0-47.0) Mean Corpuscular Volume 81 fL (79-100) Mean Corpuscular Hemoglobin 26 pg (25-35) Mean Corpuscular Hemoglobin Concent 33 g/dL (31-37) Red Cell Distribution Width 16.0 % (11.5-14.5) Platelet Count 74 x10^3/uL (140-400) Neutrophils (%) (Auto) 83 % (31-73) Lymphocytes (%) (Auto) 5 % (24-48) Monocytes (%) (Auto) 6 % (0-9) Eosinophils (%) (Auto) 6 % (0-3) Basophils (%) (Auto) 0 % (0-3) Neutrophils # (Auto) 4.5 x10^3uL (1.8-7.7) Lymphocytes # (Auto) 0.3 x10^3/uL (1.0-4.8) Monocytes # (Auto) 0.3 x10^3/uL (0.0-1.1) Eosinophils # (Auto) 0.3 x10^3/uL (0.0-0.7) Basophils # (Auto) 0.0 x10^3/uL (0.0-0.2) Sodium Level 145 mmol/L (136-145) 147 mmol/L (136-145) Potassium Level 3.3 mmol/L (3.5-5.1) 3.1 mmol/L (3.5-5.1) Chloride Level 108 mmol/L (98-107) 107 mmol/L (98-107) Carbon Dioxide Level 29 mmol/L (21-32) 33 mmol/L (21-32) Anion Gap 8 (6-14) 7 (6-14) Blood Urea Nitrogen 31 mg/dL (7-20) 26 mg/dL (7-20) Creatinine 2.2 mg/dL (0.6-1.0) 1.6 mg/dL (0.6-1.0) Estimated GFR (Cockcroft-Gault) 22.9 33.1 BUN/Creatinine Ratio 14 (6-20) Glucose Level 98 mg/dL (70-99) 99 mg/dL (70-99) Calcium Level 9.0 mg/dL (8.5-10.1) 8.6 mg/dL (8.5-10.1) Total Bilirubin 2.4 mg/dL (0.2-1.0) Aspartate Amino Transf (AST/SGOT) 28 U/L (15-37) Alanine Aminotransferase (ALT/SGPT) 47 U/L (14-59) Alkaline Phosphatase 616 U/L (46-116) Creatine Kinase 12 U/L (26-192) Total Protein 4.7 g/dL (6.4-8.2) Albumin 2.0 g/dL (3.4-5.0) Albumin/Globulin Ratio 0.7 (1.0-1.7) Laboratory Tests Test 12/09/18 06:42 Sodium Level 147 mmol/L (136-145) Potassium Level 3.1 mmol/L (3.5-5.1) Chloride Level 107 mmol/L (98-107) Carbon Dioxide Level 33 mmol/L (21-32) Anion Gap 7 (6-14) Blood Urea Nitrogen 26 mg/dL (7-20) Creatinine 1.6 mg/dL (0.6-1.0) Estimated GFR (Cockcroft-Gault) 33.1 Glucose Level 99 mg/dL (70-99) Calcium Level 8.6 mg/dL (8.5-10.1) Microbiology 12/03/18 Blood Culture - Final, Complete NO GROWTH AFTER 5 DAYS 12/04/18 Stool Culture - Final, Complete 12/04/18 Stool Culture Result 1 (DANIAL) - Final, Complete 12/04/18 Campylobacter Antigen Assay - Final, Complete 12/04/18 Campylobactor Result 1 - Final, Complete 12/04/18 Shiga Toxin Test - Final, Complete 12/03/18 Urine Culture - Final, Complete 12/03/18 Urine Culture Result 1 (DANIAL) - Final, Complete Medications Current Medications Sodium Chloride 1,000 ml @ 1,000 mls/hr 1X ONCE IV Last administered on at 23:50; Start 12/02/18 at 23:30; Stop 12/03/18 at 00:29; Status DC Sodium Chloride 1,000 ml @ 1,000 mls/hr 1X ONCE IV Last administered on at 00:08; Start 12/02/18 at 23:30; Stop 12/03/18 at 00:29; Status DC Meropenem 1 gm/ Sodium Chloride 100 ml @ 200 mls/hr Q8HRS IV Last administered on 12/02/18at 23:51; Start 12/03/18 at 00:00; Stop 12/03/18 at 03:21 ; Status DC Vancomycin HCl (Vanco Per Pharmacy) 1 each PRN DAILY PRN MC SEE COMMENTS Last administered on 12/03/18at 03:45; Start 12/02/18 at 23:30; Stop 12/03/18 at 07:49 ; Status DC Vancomycin HCl 2 gm/Sodium Chloride 500 ml @ 250 mls/hr 1X ONCE IV Last administered on 12/03/18at 00:12; Start 12/03/18 at 00:30; Stop 12/03/18 at 02:29 ; Status DC Iohexol (Omnipaque 300 Mg/ml) 75 ml 1X ONCE IV Last administered on 12/03/18at 00:41; Start 12/03/18 at 01:00; Stop 12/03/18 at 01:01; Status DC Info (CONTRAST GIVEN -- Rx MONITORING) 1 each PRN DAILY PRN MC SEE COMMENTS; Start 12/03/18 at 00:30; Stop 12/05/18 at 00:29; Status DC Sodium Chloride 1,000 ml @ 1,000 mls/hr 1X ONCE IV Last administered on at 01:08; Start 12/03/18 at 01:00; Stop 12/03/18 at 01:59; Status DC Norepinephrine Bitartrate 250 ml @ 0 mls/hr 1X ONCE IV Last administered on at 01:24; Start 12/03/18 at 01:30; Stop 12/03/18 at 01:31; Status DC Diphenhydramine HCl (Benadryl) 25 mg 1X ONCE IVP Last administered on at 02:01; Start 12/03/18 at 02:00; Stop 12/03/18 at 02:01; Status DC Magnesium Sulfate/ Dextrose 100 ml @ 100 mls/hr 1X ONCE IV Last administered on 12/03/18at 02:08; Start 12/03/18 at 02:00; Stop 12/03/18 at 02:59; Status DC Aspirin (Children'S Aspirin) 324 mg 1X ONCE PO Last administered on 12/03/18at 01:59; Start 12/03/18 at 02:00; Stop 12/03/18 at 02:01; Status DC Sodium Chloride 1,000 ml @ 175 mls/hr Q5H43M IV Last administered on at 04:23; Start 12/03/18 at 03:30; Stop 12/04/18 at 03:29; Status DC Meropenem 1 gm/ Sodium Chloride 100 ml @ 200 mls/hr Q12HR IV Last administered on 12/09/18at 08:41; Start 12/03/18 at 09:00 Vancomycin HCl 1.75 gm/Sodium Chloride 500 ml @ 250 mls/hr Q24H IV ; Start at 00:00; Stop 12/04/18 at 00:00; Status DC Vancomycin HCl (Vancomycin Trough Level) 1 each 1X ONCE MC ; Start 12/04/18 at 23:30; Stop 12/04/18 at 23:30; Status DC Diphenhydramine HCl (Benadryl) 25 mg PRN Q6HRS PRN IVP ITCHING; Start 12/03/18 at 04:45 Iohexol (Omnipaque 300 Mg/ml) 100 ml STK-MED ONCE .ROUTE ; Start 12/03/18 at 06: 01; Stop 12/03/18 at 06:02; Status DC Vancomycin HCl (Vancomycin Oral Solution) 125 mg [id number] PO Last administered on 12/04/18at 20:34; Start 12/03/18 at 09:00; Stop 12/05/18 at 11:39; Status DC Acetaminophen (Tylenol) 650 mg PRN Q6HRS PRN PO Headaches, Temp > 101.5' Last administered on 12/08/18at 22:02; Start 12/03/18 at 07:45 Lorazepam (Ativan) 0.5 mg PRN Q6HRS PRN IV ANXIETY / AGITATION; Start 12/03/18 at 07:45 Ondansetron HCl (Zofran) 4 mg PRN Q6HRS PRN IV NAUSEA/VOMITING Last administered on 12/05/18at 05:47; Start 12/03/18 at 07:45 Info (Icu Electrolyte Protocol) 1 ea DAILY MC Last administered on 12/06/18at 07 :33; Start 12/03/18 at 09:00; Stop 12/08/18 at 13:56; Status DC Heparin Sodium (Porcine) (Heparin Sodium) 5,000 unit Q8HRS SQ Last administered on 12/05/18at 15:18; Start 12/03/18 at 08:00; Stop 12/05/18 at 15:26 ; Status DC Sodium Chloride (Normal Saline Flush) 3 ml QSHIFT PRN IV AFTER MEDS AND BLOOD DRAWS; Start 12/03/18 at 07:45 Oxycodone/ Acetaminophen (Percocet 5/325) 1 tab PRN Q4HRS PRN PO PAIN; Start at 07:45 Morphine Sulfate (Morphine Sulfate) 2 mg PRN Q1HR PRN IV PAIN; Start 12/03/18 at 07:45 Aspirin (Children'S Aspirin) 81 mg DAILY PO Last administered on 12/09/18at 08: 41; Start 12/03/18 at 09:00 Clotrimazole (Mycelex-7) 1 estefany DAILY VG Last administered on 12/04/18at 09:36; Start 12/03/18 at 09:00; Stop 12/10/18 at 08:59 Duloxetine HCl (Cymbalta) 30 mg DAILY PO Last administered on 12/09/18at 08:41; Start 12/03/18 at 09:00 Levothyroxine Sodium (Synthroid) 100 mcg DAILY06 PO ; Start 12/03/18 at 08:00; Status Cancel Nystatin (Nystatin Oral Susp) 5 ml TID SWSW ; Start 12/03/18 at 09:00; Stop at 10:21; Status DC Ciprofloxacin/ Dextrose 200 ml @ 200 mls/hr Q12HR IV Last administered on 12/07at 09:15; Start 12/03/18 at 09:00; Stop 12/07/18 at 15:42; Status DC Daptomycin 460 mg/ Sodium Chloride 50 ml @ 100 mls/hr Q24H IV Last administered on 12/08/18at 10:40; Start 12/03/18 at 09:00; Stop 12/08/18 at 12:24 ; Status DC Micafungin Sodium 100 mg/Dextrose 100 ml @ 100 mls/hr Q24H IV Last administered on 12/08/18at 11:28; Start 12/03/18 at 09:00; Stop 12/08/18 at 12:24 ; Status DC Non-Formulary Medication 1 ea DAILY06 PO Last administered on 12/09/18at 06:42; Start 12/03/18 at 09:30 Magnesium Sulfate 50 ml @ 25 mls/hr 1X ONCE IV Last administered on 12/03/18at 11:09; Start 12/03/18 at 10:00; Stop 12/03/18 at 11:59; Status DC Norepinephrine Bitartrate 250 ml @ 1.875 mls/ hr CONT PRN IV SEE I/O RECORD Last administered on 12/04/18at 14:24; Start 12/03/18 at 11:15; Stop 12/06/18 at 12:28; Status DC Sodium Chloride 1,000 ml @ 999 mls/hr Q1H1M IV Last administered on 12/03/18at 14:24; Start 12/03/18 at 13:45; Stop 12/03/18 at 14:32; Status DC Vasopressin 40 unit/Dextrose 102 ml @ 6 mls/hr CONT PRN IV SEE I/O RECORD Last administered on 12/04/18at 09:01; Start 12/03/18 at 15:00; Stop 12/06/18 at 12:45 ; Status DC Sodium Chloride 1,000 ml @ 100 mls/hr Q10H IV Last administered on 12/05/18at 11:07; Start 12/04/18 at 20:45; Stop 12/05/18 at 11:34; Status DC Tbo-Filgrastim (Granix) 480 mcg QHS SQ Last administered on 12/06/18at 21:35; Start 12/05/18 at 21:00; Stop 12/07/18 at 13:08; Status DC Calcium Gluconate (Calcium Gluconate) 1,000 mg 1X ONCE IVP ; Start 12/05/18 at 11:15; Stop 12/05/18 at 11:15; Status DC Calcium/Vitamin D (Oscal D 500mg/ 200uts) 1 tab BIDWMEALS PO Last administered on 12/09/18at 08:50; Start 12/05/18 at 17:00 Calcium Gluconate 1000 mg/Dextrose 110 ml @ 220 mls/hr 1X ONCE IV Last administered on 12/05/18at 12:45; Start 12/05/18 at 12:00; Stop 12/05/18 at 12:29 ; Status DC Sodium Chloride 1,000 ml @ 75 mls/hr [id number] IV Last administered on at 05:35; Start 12/05/18 at 11:45; Stop 12/07/18 at 10:00; Status DC Ondansetron HCl (Zofran) 4 mg PRN Q6HRS PRN IV NAUSEA/VOMITING; Start 12/07/18 at 11:30; Status Cancel Ondansetron HCl (Zofran Odt) 4 mg PRN Q6HRS PRN PO NAUSEA/VOMITING; Start 12/07 at 11:30 Metoprolol Tartrate (Lopressor) 25 mg BID PO Last administered on 12/08/18at 13: 56; Start 12/08/18 at 13:30; Stop 12/09/18 at 08:30; Status DC Metoprolol Tartrate (Lopressor) 50 mg BID PO Last administered on 12/09/18at 08: 49; Start 12/09/18 at 09:00 Active Scripts Active Nystatin 100,000 Unit/1 Ml Oral.susp 5 Ml SWSW TID 3 Days Clotrimazole 45 Gm Cream.appl 1 Estefany VG DAILY 3 Days Levaquin (Levofloxacin) 500 Mg Tablet 500 Mg PO DAILY06 7 Days Reported Biotin 10,000 Mcg Capsule 10,000 Mcg PO DAILY Multivitamins (Multivitamin) 1 Each Tablet 1 Each PO DAILY Metoprolol Tartrate 25 Mg Tablet 25 Mg PO DAILY Cymbalta (Duloxetine Hcl) 30 Mg Capsule.dr 1 Cap PO DAILY Aspirin 81 Mg Tab.chew 1 Tab PO DAILY Synthroid (Levothyroxine Sodium) 88 Mcg Tablet 100 Mcg PO DAILY Climara (Estradiol) 1 Each Patch.tdwk Latanoprost 2.5 Ml Drops 1 Drop [facility] Vitals/I & O Vital Sign - Last 24 Hours 12/08/18 12/08/18 12/08/18 12/08/18 10:56 13:56 14:49 19:47 Temp 98.4 98.2 98.7 98.4 98.2 98.7 Pulse 94 94 91 92 Resp 18 18 16 B/P (MAP) 163/74 (103) 163/74 136/65 (88) 145/71 (95) Pulse Ox 94 96 95 O2 Delivery Room Air Room Air Room Air 12/08/18 12/08/18 12/09/18 12/09/18 20:16 22:46 02:41 07:07 Temp 98.9 98.4 98.7 98.9 98.4 98.7 Pulse 92 109 98 Resp 18 20 18 B/P (MAP) 138/59 (85) 149/83 (105) 154/86 (108) Pulse Ox 95 99 94 O2 Delivery Room Air Room Air Room Air Room Air 12/09/18 08:49 Pulse 98 B/P (MAP) 154/86 Intake and Output 12/08/18 12/08/18 12/09/18 14:59 22:59 06:59 Intake Total 400 ml 400 ml Output Total 1700 ml Balance -1700 ml 400 ml 400 ml SANGEETA HERNANDEZ MD Dec 09, 2018 09:07
--- NOTE | 2018-12-09 09:13 | PDOC ---
PROGRESS NOTES Chief Complaint Chief Complaint Marginal zone lymphoma on chemotherapy Neutropenic fever, last chemotherapy November 16, 2018 Anemia of chronic disease Septic shock-off levophed Urine culture, blood culture negative Diarrhea 1 episode Colitis on CAT scan Left arm swelling-previous IV site Bilateral leg edema secondary to IV fluid resuscitation AK I VMN-better INdWelling right-sided Port-A-Cath for chemotherapy NEg DVT left arm-previous site of IV NOn Sustained V. tach, asymptomatic, 12/08/18 full Code History of Present Illness History of Present Illness SHe was a transfer from ICU and was there because of septic shock likely from colitis needing levophed Blood pressure meds have been on hold naturally had nonsustained V. tach may be 6 beats total asymptomatic 12/08 BP on the high side now, on beta iqra 25 twice a day at home when necessary for high blood pressure Urine culture blood culture negative and also stool cx neg She complains of left arm swelling and pain - previous IV site - BUT NEG FOR DVT She has a right indwelling Port-A-Cath for chemotherapy that started first week of November - Dr Jenkins Legs are also bilaterally swollen from IV resuscitation, slowly getting better She still weak. vogt dcd and voiding fione NO PO issues Plan: WArm compresses and exercises to the arm - done by OT Increase metoprolol to 50 twice a day from 25 twice a day because of tachycardia and high blood pressure Watch out for hypotension-reason for ICU and levo fed Keep on telemetry for now Avoid Nephrotoxins So far creatinine improving/kidney stable Still on IV meropenem Merem and IV dapto per ID dw pt and RN Vitals Vitals Vital Signs Date Time Temp Pulse Resp B/P (MAP) Pulse Ox O2 Delivery O2 Flow Rate FiO2 12/09/18 08:49 98 154/86 12/09/18 07:07 98.7 18 94 Room Air 98.7 Physical Exam Physical Exam GENERAL: Propped up in bed, alert, NAD HEENT: Oral cavity clear, no thrush or lesions NECK: Supple LUNGS: Clear. HEART: S1, S2 regular. ABDOMEN: Obese, soft and nontender : Vogt EXTREMITIES: Trace edema lower extremities , bilaterally. No cyanosis SKIN: Jaundiced, Maculopapular rash,,, right arm > left arm, fading IN STORE REPRESENTATIVE: Alert, responds appropriately Port-A-Cath without signs of any complications . General: Alert, Oriented X3, No acute distress Heart: Normal S1, Normal S2 Lungs: Clear Abdomen: No tenderness Extremities: No clubbing, No cyanosis, Other (1+ bilateral LE pitting edema, tender and swollen left arm, mostly elbow) Skin: No breakdown, No significant lesion Labs LABS Laboratory Tests Test 12/09/18 06:42 Sodium Level 147 mmol/L (136-145) Potassium Level 3.1 mmol/L (3.5-5.1) Chloride Level 107 mmol/L (98-107) Carbon Dioxide Level 33 mmol/L (21-32) Anion Gap 7 (6-14) Blood Urea Nitrogen 26 mg/dL (7-20) Creatinine 1.6 mg/dL (0.6-1.0) Estimated GFR (Cockcroft-Gault) 33.1 Glucose Level 99 mg/dL (70-99) Calcium Level 8.6 mg/dL (8.5-10.1) Review of Systems Review of Systems A 14 point ROS was completed with the following noted as positive: Other systems reviewed and negative. \CONSTITUTIONAL: No fever or chills EYES: No recent changes SKIN: No rash or itching CARDIOVASCULAR: No chest pain, syncope, palpitations, or edema RESPIRATORY: No SOB or cough GASTROINTESTINAL: No nausea, vomiting or abdominal pain NEUROLOGICAL: No headaches or weakness ENDOCRINE: No cold or heat intolerance GENITOURINARY: No urgency or frequency of urination MUSCULOSKELETAL: No back pain or joint pain LYMPHATICS: No enlarged lymph nodes PSYCHIATRIC: No anxiety or depression Comment Review of Relevant I have reviewed the following items kike (where applicable) has been applied. Labs Laboratory Tests Test 12/08/18 05:30 12/09/18 06:42 White Blood Count 5.4 x10^3/uL (4.0-11.0) Red Blood Count 3.37 x10^6/uL (3.50-5.40) Hemoglobin 8.9 g/dL (12.0-15.5) Hematocrit 27.2 % (36.0-47.0) Mean Corpuscular Volume 81 fL (79-100) Mean Corpuscular Hemoglobin 26 pg (25-35) Mean Corpuscular Hemoglobin Concent 33 g/dL (31-37) Red Cell Distribution Width 16.0 % (11.5-14.5) Platelet Count 74 x10^3/uL (140-400) Neutrophils (%) (Auto) 83 % (31-73) Lymphocytes (%) (Auto) 5 % (24-48) Monocytes (%) (Auto) 6 % (0-9) Eosinophils (%) (Auto) 6 % (0-3) Basophils (%) (Auto) 0 % (0-3) Neutrophils # (Auto) 4.5 x10^3uL (1.8-7.7) Lymphocytes # (Auto) 0.3 x10^3/uL (1.0-4.8) Monocytes # (Auto) 0.3 x10^3/uL (0.0-1.1) Eosinophils # (Auto) 0.3 x10^3/uL (0.0-0.7) Basophils # (Auto) 0.0 x10^3/uL (0.0-0.2) Sodium Level 145 mmol/L (136-145) 147 mmol/L (136-145) Potassium Level 3.3 mmol/L (3.5-5.1) 3.1 mmol/L (3.5-5.1) Chloride Level 108 mmol/L (98-107) 107 mmol/L (98-107) Carbon Dioxide Level 29 mmol/L (21-32) 33 mmol/L (21-32) Anion Gap 8 (6-14) 7 (6-14) Blood Urea Nitrogen 31 mg/dL (7-20) 26 mg/dL (7-20) Creatinine 2.2 mg/dL (0.6-1.0) 1.6 mg/dL (0.6-1.0) Estimated GFR (Cockcroft-Gault) 22.9 33.1 BUN/Creatinine Ratio 14 (6-20) Glucose Level 98 mg/dL (70-99) 99 mg/dL (70-99) Calcium Level 9.0 mg/dL (8.5-10.1) 8.6 mg/dL (8.5-10.1) Total Bilirubin 2.4 mg/dL (0.2-1.0) Aspartate Amino Transf (AST/SGOT) 28 U/L (15-37) Alanine Aminotransferase (ALT/SGPT) 47 U/L (14-59) Alkaline Phosphatase 616 U/L (46-116) Creatine Kinase 12 U/L (26-192) Total Protein 4.7 g/dL (6.4-8.2) Albumin 2.0 g/dL (3.4-5.0) Albumin/Globulin Ratio 0.7 (1.0-1.7) Laboratory Tests Test 12/09/18 06:42 Sodium Level 147 mmol/L (136-145) Potassium Level 3.1 mmol/L (3.5-5.1) Chloride Level 107 mmol/L (98-107) Carbon Dioxide Level 33 mmol/L (21-32) Anion Gap 7 (6-14) Blood Urea Nitrogen 26 mg/dL (7-20) Creatinine 1.6 mg/dL (0.6-1.0) Estimated GFR (Cockcroft-Gault) 33.1 Glucose Level 99 mg/dL (70-99) Calcium Level 8.6 mg/dL (8.5-10.1) Microbiology 12/03/18 Blood Culture - Final, Complete NO GROWTH AFTER 5 DAYS 12/04/18 Stool Culture - Final, Complete 12/04/18 Stool Culture Result 1 (DANIAL) - Final, Complete 12/04/18 Campylobacter Antigen Assay - Final, Complete 12/04/18 Campylobactor Result 1 - Final, Complete 12/04/18 Shiga Toxin Test - Final, Complete 12/03/18 Urine Culture - Final, Complete 12/03/18 Urine Culture Result 1 (DANIAL) - Final, Complete Medications Current Medications Sodium Chloride 1,000 ml @ 1,000 mls/hr 1X ONCE IV Last administered on at 23:50; Start 12/02/18 at 23:30; Stop 12/03/18 at 00:29; Status DC Sodium Chloride 1,000 ml @ 1,000 mls/hr 1X ONCE IV Last administered on at 00:08; Start 12/02/18 at 23:30; Stop 12/03/18 at 00:29; Status DC Meropenem 1 gm/ Sodium Chloride 100 ml @ 200 mls/hr Q8HRS IV Last administered on 12/02/18at 23:51; Start 12/03/18 at 00:00; Stop 12/03/18 at 03:21 ; Status DC Vancomycin HCl (Vanco Per Pharmacy) 1 each PRN DAILY PRN MC SEE COMMENTS Last administered on 12/03/18at 03:45; Start 12/02/18 at 23:30; Stop 12/03/18 at 07:49 ; Status DC Vancomycin HCl 2 gm/Sodium Chloride 500 ml @ 250 mls/hr 1X ONCE IV Last administered on 12/03/18at 00:12; Start 12/03/18 at 00:30; Stop 12/03/18 at 02:29 ; Status DC Iohexol (Omnipaque 300 Mg/ml) 75 ml 1X ONCE IV Last administered on 12/03/18at 00:41; Start 12/03/18 at 01:00; Stop 12/03/18 at 01:01; Status DC Info (CONTRAST GIVEN -- Rx MONITORING) 1 each PRN DAILY PRN MC SEE COMMENTS; Start 12/03/18 at 00:30; Stop 12/05/18 at 00:29; Status DC Sodium Chloride 1,000 ml @ 1,000 mls/hr 1X ONCE IV Last administered on at 01:08; Start 12/03/18 at 01:00; Stop 12/03/18 at 01:59; Status DC Norepinephrine Bitartrate 250 ml @ 0 mls/hr 1X ONCE IV Last administered on at 01:24; Start 12/03/18 at 01:30; Stop 12/03/18 at 01:31; Status DC Diphenhydramine HCl (Benadryl) 25 mg 1X ONCE IVP Last administered on at 02:01; Start 12/03/18 at 02:00; Stop 12/03/18 at 02:01; Status DC Magnesium Sulfate/ Dextrose 100 ml @ 100 mls/hr 1X ONCE IV Last administered on 12/03/18at 02:08; Start 12/03/18 at 02:00; Stop 12/03/18 at 02:59; Status DC Aspirin (Children'S Aspirin) 324 mg 1X ONCE PO Last administered on 12/03/18at 01:59; Start 12/03/18 at 02:00; Stop 12/03/18 at 02:01; Status DC Sodium Chloride 1,000 ml @ 175 mls/hr Q5H43M IV Last administered on at 04:23; Start 12/03/18 at 03:30; Stop 12/04/18 at 03:29; Status DC Meropenem 1 gm/ Sodium Chloride 100 ml @ 200 mls/hr Q12HR IV Last administered on 12/09/18at 08:41; Start 12/03/18 at 09:00 Vancomycin HCl 1.75 gm/Sodium Chloride 500 ml @ 250 mls/hr Q24H IV ; Start at 00:00; Stop 12/04/18 at 00:00; Status DC Vancomycin HCl (Vancomycin Trough Level) 1 each 1X ONCE MC ; Start 12/04/18 at 23:30; Stop 12/04/18 at 23:30; Status DC Diphenhydramine HCl (Benadryl) 25 mg PRN Q6HRS PRN IVP ITCHING; Start 12/03/18 at 04:45 Iohexol (Omnipaque 300 Mg/ml) 100 ml STK-MED ONCE .ROUTE ; Start 12/03/18 at 06: 01; Stop 12/03/18 at 06:02; Status DC Vancomycin HCl (Vancomycin Oral Solution) 125 mg [id number] PO Last administered on 12/04/18at 20:34; Start 12/03/18 at 09:00; Stop 12/05/18 at 11:39; Status DC Acetaminophen (Tylenol) 650 mg PRN Q6HRS PRN PO Headaches, Temp > 101.5' Last administered on 12/08/18at 22:02; Start 12/03/18 at 07:45 Lorazepam (Ativan) 0.5 mg PRN Q6HRS PRN IV ANXIETY / AGITATION; Start 12/03/18 at 07:45 Ondansetron HCl (Zofran) 4 mg PRN Q6HRS PRN IV NAUSEA/VOMITING Last administered on 12/05/18at 05:47; Start 12/03/18 at 07:45 Info (Icu Electrolyte Protocol) 1 ea DAILY MC Last administered on 12/06/18at 07 :33; Start 12/03/18 at 09:00; Stop 12/08/18 at 13:56; Status DC Heparin Sodium (Porcine) (Heparin Sodium) 5,000 unit Q8HRS SQ Last administered on 12/05/18at 15:18; Start 12/03/18 at 08:00; Stop 12/05/18 at 15:26 ; Status DC Sodium Chloride (Normal Saline Flush) 3 ml QSHIFT PRN IV AFTER MEDS AND BLOOD DRAWS; Start 12/03/18 at 07:45 Oxycodone/ Acetaminophen (Percocet 5/325) 1 tab PRN Q4HRS PRN PO PAIN; Start at 07:45 Morphine Sulfate (Morphine Sulfate) 2 mg PRN Q1HR PRN IV PAIN; Start 12/03/18 at 07:45 Aspirin (Children'S Aspirin) 81 mg DAILY PO Last administered on 12/09/18at 08: 41; Start 12/03/18 at 09:00 Clotrimazole (Mycelex-7) 1 estefany DAILY VG Last administered on 12/04/18at 09:36; Start 12/03/18 at 09:00; Stop 12/10/18 at 08:59 Duloxetine HCl (Cymbalta) 30 mg DAILY PO Last administered on 12/09/18at 08:41; Start 12/03/18 at 09:00 Levothyroxine Sodium (Synthroid) 100 mcg DAILY06 PO ; Start 12/03/18 at 08:00; Status Cancel Nystatin (Nystatin Oral Susp) 5 ml TID SWSW ; Start 12/03/18 at 09:00; Stop at 10:21; Status DC Ciprofloxacin/ Dextrose 200 ml @ 200 mls/hr Q12HR IV Last administered on 12/07at 09:15; Start 12/03/18 at 09:00; Stop 12/07/18 at 15:42; Status DC Daptomycin 460 mg/ Sodium Chloride 50 ml @ 100 mls/hr Q24H IV Last administered on 12/08/18at 10:40; Start 12/03/18 at 09:00; Stop 12/08/18 at 12:24 ; Status DC Micafungin Sodium 100 mg/Dextrose 100 ml @ 100 mls/hr Q24H IV Last administered on 12/08/18at 11:28; Start 12/03/18 at 09:00; Stop 12/08/18 at 12:24 ; Status DC Non-Formulary Medication 1 ea DAILY06 PO Last administered on 12/09/18at 06:42; Start 12/03/18 at 09:30 Magnesium Sulfate 50 ml @ 25 mls/hr 1X ONCE IV Last administered on 12/03/18at 11:09; Start 12/03/18 at 10:00; Stop 12/03/18 at 11:59; Status DC Norepinephrine Bitartrate 250 ml @ 1.875 mls/ hr CONT PRN IV SEE I/O RECORD Last administered on 12/04/18at 14:24; Start 12/03/18 at 11:15; Stop 12/06/18 at 12:28; Status DC Sodium Chloride 1,000 ml @ 999 mls/hr Q1H1M IV Last administered on 12/03/18at 14:24; Start 12/03/18 at 13:45; Stop 12/03/18 at 14:32; Status DC Vasopressin 40 unit/Dextrose 102 ml @ 6 mls/hr CONT PRN IV SEE I/O RECORD Last administered on 12/04/18at 09:01; Start 12/03/18 at 15:00; Stop 12/06/18 at 12:45 ; Status DC Sodium Chloride 1,000 ml @ 100 mls/hr Q10H IV Last administered on 12/05/18at 11:07; Start 12/04/18 at 20:45; Stop 12/05/18 at 11:34; Status DC Tbo-Filgrastim (Granix) 480 mcg QHS SQ Last administered on 12/06/18at 21:35; Start 12/05/18 at 21:00; Stop 12/07/18 at 13:08; Status DC Calcium Gluconate (Calcium Gluconate) 1,000 mg 1X ONCE IVP ; Start 12/05/18 at 11:15; Stop 12/05/18 at 11:15; Status DC Calcium/Vitamin D (Oscal D 500mg/ 200uts) 1 tab BIDWMEALS PO Last administered on 12/09/18at 08:50; Start 12/05/18 at 17:00 Calcium Gluconate 1000 mg/Dextrose 110 ml @ 220 mls/hr 1X ONCE IV Last administered on 12/05/18at 12:45; Start 12/05/18 at 12:00; Stop 12/05/18 at 12:29 ; Status DC Sodium Chloride 1,000 ml @ 75 mls/hr [id number] IV Last administered on at 05:35; Start 12/05/18 at 11:45; Stop 12/07/18 at 10:00; Status DC Ondansetron HCl (Zofran) 4 mg PRN Q6HRS PRN IV NAUSEA/VOMITING; Start 12/07/18 at 11:30; Status Cancel Ondansetron HCl (Zofran Odt) 4 mg PRN Q6HRS PRN PO NAUSEA/VOMITING; Start 12/07 at 11:30 Metoprolol Tartrate (Lopressor) 25 mg BID PO Last administered on 12/08/18at 13: 56; Start 12/08/18 at 13:30; Stop 12/09/18 at 08:30; Status DC Metoprolol Tartrate (Lopressor) 50 mg BID PO Last administered on 12/09/18at 08: 49; Start 12/09/18 at 09:00 Active Scripts Active Nystatin 100,000 Unit/1 Ml Oral.susp 5 Ml SWSW TID 3 Days Clotrimazole 45 Gm Cream.appl 1 Estefany VG DAILY 3 Days Levaquin (Levofloxacin) 500 Mg Tablet 500 Mg PO DAILY06 7 Days Reported Biotin 10,000 Mcg Capsule 10,000 Mcg PO DAILY Multivitamins (Multivitamin) 1 Each Tablet 1 Each PO DAILY Metoprolol Tartrate 25 Mg Tablet 25 Mg PO DAILY Cymbalta (Duloxetine Hcl) 30 Mg Capsule.dr 1 Cap PO DAILY Aspirin 81 Mg Tab.chew 1 Tab PO DAILY Synthroid (Levothyroxine Sodium) 88 Mcg Tablet 100 Mcg PO DAILY Climara (Estradiol) 1 Each Patch.tdwk Latanoprost 2.5 Ml Drops 1 Drop EACHEYE QHS Vitals/I & O Vital Sign - Last 24 Hours 12/08/18 12/08/18 12/08/18 12/08/18 10:56 13:56 14:49 19:47 Temp 98.4 98.2 98.7 98.4 98.2 98.7 Pulse 94 94 91 92 Resp 18 18 16 B/P (MAP) 163/74 (103) 163/74 136/65 (88) 145/71 (95) Pulse Ox 94 96 95 O2 Delivery Room Air Room Air Room Air 12/08/18 12/08/18 12/09/18 12/09/18 20:16 22:46 02:41 07:07 Temp 98.9 98.4 98.7 98.9 98.4 98.7 Pulse 92 109 98 Resp 18 20 18 B/P (MAP) 138/59 (85) 149/83 (105) 154/86 (108) Pulse Ox 95 99 94 O2 Delivery Room Air Room Air Room Air Room Air 12/09/18 08:49 Pulse 98 B/P (MAP) 154/86 Intake and Output 12/08/18 12/08/18 12/09/18 15:00 23:00 07:00 Intake Total 400 ml 400 ml Output Total 1700 ml Balance -1700 ml 400 ml 400 ml GUERITA CONTRERAS MD Dec 09, 2018 09:13
--- NOTE | 2018-12-09 09:27 | PDOC ---
PULMONARY PROGRESS NOTES Subjective PT EATING NOT MORE SOA Vitals Vital Signs Date Time Temp Pulse Resp B/P (MAP) Pulse Ox O2 Delivery O2 Flow Rate FiO2 12/09/18 08:49 98 154/86 12/09/18 07:07 98.7 18 94 Room Air 98.7 ROS: No Nausea, No Chest Pain General: Alert, No acute distress Lungs: Clear Cardiovascular: S1, S2 Abdomen: Soft Neuro Exam: Alert Extremities: Other (jaundice, 1+edema) Skin: Warm, Dry Labs Laboratory Tests Test 12/08/18 05:30 12/09/18 06:42 White Blood Count 5.4 x10^3/uL (4.0-11.0) Red Blood Count 3.37 x10^6/uL (3.50-5.40) Hemoglobin 8.9 g/dL (12.0-15.5) Hematocrit 27.2 % (36.0-47.0) Mean Corpuscular Volume 81 fL (79-100) Mean Corpuscular Hemoglobin 26 pg (25-35) Mean Corpuscular Hemoglobin Concent 33 g/dL (31-37) Red Cell Distribution Width 16.0 % (11.5-14.5) Platelet Count 74 x10^3/uL (140-400) Neutrophils (%) (Auto) 83 % (31-73) Lymphocytes (%) (Auto) 5 % (24-48) Monocytes (%) (Auto) 6 % (0-9) Eosinophils (%) (Auto) 6 % (0-3) Basophils (%) (Auto) 0 % (0-3) Neutrophils # (Auto) 4.5 x10^3uL (1.8-7.7) Lymphocytes # (Auto) 0.3 x10^3/uL (1.0-4.8) Monocytes # (Auto) 0.3 x10^3/uL (0.0-1.1) Eosinophils # (Auto) 0.3 x10^3/uL (0.0-0.7) Basophils # (Auto) 0.0 x10^3/uL (0.0-0.2) Sodium Level 145 mmol/L (136-145) 147 mmol/L (136-145) Potassium Level 3.3 mmol/L (3.5-5.1) 3.1 mmol/L (3.5-5.1) Chloride Level 108 mmol/L (98-107) 107 mmol/L (98-107) Carbon Dioxide Level 29 mmol/L (21-32) 33 mmol/L (21-32) Anion Gap 8 (6-14) 7 (6-14) Blood Urea Nitrogen 31 mg/dL (7-20) 26 mg/dL (7-20) Creatinine 2.2 mg/dL (0.6-1.0) 1.6 mg/dL (0.6-1.0) Estimated GFR (Cockcroft-Gault) 22.9 33.1 BUN/Creatinine Ratio 14 (6-20) Glucose Level 98 mg/dL (70-99) 99 mg/dL (70-99) Calcium Level 9.0 mg/dL (8.5-10.1) 8.6 mg/dL (8.5-10.1) Total Bilirubin 2.4 mg/dL (0.2-1.0) Aspartate Amino Transf (AST/SGOT) 28 U/L (15-37) Alanine Aminotransferase (ALT/SGPT) 47 U/L (14-59) Alkaline Phosphatase 616 U/L (46-116) Creatine Kinase 12 U/L (26-192) Total Protein 4.7 g/dL (6.4-8.2) Albumin 2.0 g/dL (3.4-5.0) Albumin/Globulin Ratio 0.7 (1.0-1.7) Laboratory Tests Test 12/09/18 06:42 Sodium Level 147 mmol/L (136-145) Potassium Level 3.1 mmol/L (3.5-5.1) Chloride Level 107 mmol/L (98-107) Carbon Dioxide Level 33 mmol/L (21-32) Anion Gap 7 (6-14) Blood Urea Nitrogen 26 mg/dL (7-20) Creatinine 1.6 mg/dL (0.6-1.0) Estimated GFR (Cockcroft-Gault) 33.1 Glucose Level 99 mg/dL (70-99) Calcium Level 8.6 mg/dL (8.5-10.1) Medications Active Scripts Medications Dose Route/Sig Max Daily Dose Days Date Category Nystatin 100,000 Unit/1 Ml Oral.susp 5 Ml SWSW TID 3 12/01/18 Rx Clotrimazole 45 Gm Cream.appl 1 Estefany VG DAILY 3 12/01/18 Rx Levaquin (Levofloxacin) 500 Mg Tablet 500 Mg PO DAILY06 7 12/01/18 Rx Biotin 10,000 Mcg Capsule 10,000 Mcg PO DAILY 10/10/18 Reported Multivitamins (Multivitamin) 1 Each Tablet 1 Each PO DAILY 05/06/18 Reported Metoprolol Tartrate 25 Mg Tablet 25 Mg PO DAILY 04/17/18 Reported Cymbalta (Duloxetine Hcl) 30 Mg Capsule.dr 1 Cap PO DAILY 04/17/18 Reported Aspirin 81 Mg Tab.chew 1 Tab PO DAILY 02/12/17 Reported Synthroid (Levothyroxine Sodium) 88 Mcg Tablet 100 Mcg PO DAILY 02/11/17 Reported Climara (Estradiol) 1 Each Patch.tdwk 02/11/17 Reported Latanoprost 2.5 Ml Drops 1 Drop EACHEYE QHS 02/11/17 Reported Impression . 1. Septic shock. likely due to colitis. She also has a component of hypovolemic shock as well. improved, off levophed. 2. Marginal zone lymphoma, status post chemo in the first week of November and has immunosuppression. 3. No significant history of tobacco use. 4. Acute kidney injury related to shock. improving 5. Lactic acidosis secondary to septic shock, the levels are improving. 6. Severe protein-calorie malnutrition. Albumin level is 1.7. 7. Elevated liver function test, Bili up to 12. Now sig improving ? chemo induced liver failure, no obstruction/ GI following. MRCP neg 8. Increased troponin level. Follow Cardiology's recommendations. 9. Pancytopenia, chemo vs sepsis induced. improving Plan . RESP STATUS IS COMPENSATED PT TO HELP US WITH D/C PLANNING 1. Continues to improve 2. prn oxygen 3. Monitor renal function. 4. Monitor liver function tests./ MRCP neg 5. Follow ID recommendation. 6. Broad spectrum antibiotics per ID. 7. Renal recommendation. 8. Cardiology recommendation. 9. Improved nutritional status. 10. off sc heparin due to thrombocytopenia MADELEINE TINOCO MD Dec 09, 2018 09:27
--- NOTE | 2018-12-09 09:50 | PDOC ---
Subjective: Subjective: Left arm still feels funny but says going to work w/ PT again. Appetite is better. No abd pain. Hasn't stooled in a couple days - wants to wait and see what happens because sometimes after she eats pancakes and syrup she stools. Objective: Vital Signs: Vital Signs Date Time Temp Pulse Resp B/P (MAP) Pulse Ox O2 Delivery O2 Flow Rate FiO2 12/09/18 08:49 98 154/86 12/09/18 07:07 98.7 18 94 Room Air 98.7 Labs: Laboratory Tests Test 12/09/18 06:42 Sodium Level 147 mmol/L Potassium Level 3.1 mmol/L Chloride Level 107 mmol/L Carbon Dioxide Level 33 mmol/L Anion Gap 7 Blood Urea Nitrogen 26 mg/dL Creatinine 1.6 mg/dL Estimated GFR (Cockcroft-Gault) 33.1 Glucose Level 99 mg/dL Calcium Level 8.6 mg/dL PE: GEN: NAD LUNGS: room air ABD: S/ND/NT SKIN: less jaundice NEURO/PSYCH: A & O 3 A/P: Jaundice/cholestasis - improved Marginal zone lymphoma, anemia, ELISE (better) -- Improved GI-ramirez. Will recheck LFTs tomorrow. Miralax if she wants. ALEXANDER ROSS Dec 09, 2018 09:50
--- NOTE | 2018-12-09 09:51 | PDOC ---
Infectious Disease Note Subjective: Subjective Pt says is doing better still concerned about edema of LUE walked in [address] with PT and OT Rash is better Denies F/C/N/V/D/SOA /ABDO pain ROS: ROS Negative except for above. Vital Signs: Vital Signs Vital Signs Date Time Temp Pulse Resp B/P (MAP) Pulse Ox O2 Delivery O2 Flow Rate FiO2 12/09/18 08:49 98 154/86 12/09/18 07:07 98.7 18 94 Room Air 98.7 Physical Exam: PHYSICAL EXAM GENERAL: Propped up in bed, alert, NAD HEENT: Oral cavity clear, no thrush or lesions NECK: Supple LUNGS: Clear. HEART: S1, S2 regular. ABDOMEN: Obese, soft and nontender : Cote EXTREMITIES: Trace edema lower extremities , bilaterally. 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 Medications: Inpatient Meds: Current Medications Medications (Trade) Dose Ordered Sig/Angeline Start Time Stop Time Status Last Admin Dose Admin Acetaminophen (Tylenol) 650 mg PRN Q6HRS PRN 12/03/18 07:45 12/08/18 22:02 650 MG Aspirin (Children'S Aspirin) 81 mg DAILY 12/03/18 09:00 12/09/18 08:41 81 MG Calcium Gluconate (Calcium Gluconate) 1,000 mg 1X ONCE 12/05/18 11:15 12/05/18 11:15 DC Calcium Gluconate 1000 mg/Dextrose 110 ml @ 220 mls/hr 1X ONCE 12/05/18 12:00 12/05/18 12:29 DC 12/05/18 12:45 220 MLS/HR Calcium/Vitamin D (Oscal D 500mg/ 200uts) 1 tab [id number] 12/05/18 17:00 12/09/18 08:50 1 TAB Ciprofloxacin/ Dextrose 200 ml @ 200 mls/hr Q12HR 12/03/18 09:00 12/07/18 15:42 DC 12/07/18 09:15 200 MLS/HR Clotrimazole (Mycelex-7) 1 ger DAILY 12/03/18 09:00 12/10/18 08:59 12/04/18 09:36 1 GER Daptomycin 460 mg/ Sodium Chloride 50 ml @ 100 mls/hr Q24H 12/03/18 09:00 12/08/18 12:24 DC 12/08/18 10:40 100 MLS/HR Diphenhydramine HCl (Benadryl) 25 mg PRN Q6HRS PRN 12/03/18 04:45 Duloxetine HCl (Cymbalta) 30 mg DAILY 12/03/18 09:00 12/09/18 08:41 30 MG Heparin Sodium (Porcine) (Heparin Sodium) 5,000 unit Q8HRS 12/03/18 08:00 12/05/18 15:26 DC 12/05/18 15:18 5,000 UNIT Info (CONTRAST GIVEN -- Rx MONITORING) 1 each PRN DAILY PRN 12/03/18 00:30 12/05/18 00:29 DC Info (Icu Electrolyte Protocol) 1 ea DAILY 12/03/18 09:00 12/08/18 13:56 DC 12/06/18 07:33 1 EA Iohexol (Omnipaque 300 Mg/ml) 100 ml STK-MED ONCE 12/03/18 06:01 12/03/18 06:02 DC Levothyroxine Sodium (Synthroid) 100 mcg DAILY06 12/03/18 08:00 Cancel Lorazepam (Ativan) 0.5 mg PRN Q6HRS PRN 12/03/18 07:45 Magnesium Sulfate 50 ml @ 25 mls/hr 1X ONCE 12/03/18 10:00 12/03/18 11:59 DC 12/03/18 11:09 25 MLS/HR Magnesium Sulfate/ Dextrose 100 ml @ 100 mls/hr 1X ONCE 12/03/18 02:00 12/03/18 02:59 DC 12/03/18 02:08 100 MLS/HR Meropenem 1 gm/ Sodium Chloride 100 ml @ 200 mls/hr Q12HR 12/03/18 09:00 12/09/18 08:41 200 MLS/HR Metoprolol Tartrate (Lopressor) 50 mg BID 12/09/18 09:00 12/09/18 08:49 50 MG Micafungin Sodium 100 mg/Dextrose 100 ml @ 100 mls/hr Q24H 12/03/18 09:00 12/08/18 12:24 DC 12/08/18 11:28 100 MLS/HR Morphine Sulfate (Morphine Sulfate) 2 mg PRN Q1HR PRN 12/03/18 07:45 Non-Formulary Medication 1 ea DAILY06 12/03/18 09:30 12/09/18 06:42 1 EA Norepinephrine Bitartrate 250 ml @ 1.875 mls/ hr CONT PRN 12/03/18 11:15 12/06/18 12:28 DC 12/04/18 14:24 11.63 MLS/HR Nystatin (Nystatin Oral Susp) 5 ml TID 12/03/18 09:00 12/03/18 10:21 DC Ondansetron HCl (Zofran Odt) 4 mg PRN Q6HRS PRN 12/07/18 11:30 Ondansetron HCl (Zofran) 4 mg PRN Q6HRS PRN 12/07/18 11:30 Cancel Oxycodone/ Acetaminophen (Percocet 5/325) 1 tab PRN Q4HRS PRN 12/03/18 07:45 Sodium Chloride 1,000 ml @ 75 mls/hr [id number] 12/05/18 11:45 12/07/18 10:00 DC 12/07/18 05:35 75 MLS/HR Sodium Chloride (Normal Saline Flush) 3 ml QSHIFT PRN 12/03/18 07:45 Tbo-Filgrastim (Granix) 480 mcg QHS 12/05/18 21:00 12/07/18 13:08 DC 12/06/18 21:35 480 MCG Vancomycin HCl (Vanco Per Pharmacy) 1 each PRN DAILY PRN 12/02/18 23:30 12/03/18 07:49 DC 12/03/18 03:45 1 EACH Vancomycin HCl (Vancomycin Trough Level) 1 each 1X ONCE 12/04/18 23:30 12/04/18 23:30 DC Vancomycin HCl (Vancomycin Oral Solution) 125 mg [id number] 12/03/18 09:00 12/05/18 11:39 DC 12/04/18 20:34 125 MG Vancomycin HCl 1.75 gm/Sodium Chloride 500 ml @ 250 mls/hr Q24H 12/04/18 00:00 12/04/18 00:00 DC Vancomycin HCl 2 gm/Sodium Chloride 500 ml @ 250 mls/hr 1X ONCE 12/03/18 00:30 12/03/18 02:29 DC 12/03/18 00:12 150 MLS/HR Vasopressin 40 unit/Dextrose 102 ml @ 6 mls/hr CONT PRN 12/03/18 15:00 12/06/18 12:45 DC 12/04/18 09:01 6 MLS/HR Labs: Lab Laboratory Tests Test 12/09/18 06:42 Sodium Level 147 mmol/L (136-145) Potassium Level 3.1 mmol/L (3.5-5.1) Chloride Level 107 mmol/L (98-107) Carbon Dioxide Level 33 mmol/L (21-32) Anion Gap 7 (6-14) Blood Urea Nitrogen 26 mg/dL (7-20) Creatinine 1.6 mg/dL (0.6-1.0) Estimated GFR (Cockcroft-Gault) 33.1 Glucose Level 99 mg/dL (70-99) Calcium Level 8.6 mg/dL (8.5-10.1) Objective: Assessment: Fever,resolved cult neg Pancytopenia,, WBC count now WNL Lactic acidosis resolved Rash ? from Bendamustine, resolving Dehydration ELISE Hypotension, now off vasopressors Marginal zone lymphoma ? Hepato/renal syndrome Hyperbilirubinemia,,,improving ,MRCP noted Allergy PCN and Sulfa Plan: Plan of Care DC Merrem and observe off antibiotics,pt has been on antibiotics since last admission Monitor closely Off Daptomycin and Micafungin ( 12/08) off Cipro 12/07 Stool studies neg Supportive care D/w nursing JOIE CARMONA MD Dec 09, 2018 09:51
[2018-12-09] MEDS ORDERED: POLYETHYLENE GLYCOL 3350 17 GM PACKET. PO PRN (10:00)
[2018-12-09] MEDS: POLYETHYLENE GLYCOL 3350 17 GM PACKET. PO SCH (10:30)
[2018-12-09 11:01] VITALS: BP 142/76
--- NOTE | 2018-12-09 13:19 | PDOC ---
Renal-Progress Notes Subjective Notes Notes FEELING OK STILL PUFFY History of Present Illness Hx of present illness STABLE Vitals Vitals Vital Signs Date Time Temp Pulse Resp B/P (MAP) Pulse Ox O2 Delivery O2 Flow Rate FiO2 12/09/18 11:01 97.8 82 18 142/76 (98) 96 Room Air 97.8 Weight Weight [ ] I.O. Intake and Output Intake and Output 12/09/18 06:59 Intake Total 800 ml Output Total 1700 ml Balance -900 ml Intake Oral 800 ml Output Urine Total 1700 ml # Voids 4 Labs Labs Laboratory Tests Test 12/09/18 06:42 Sodium Level 147 mmol/L (136-145) Potassium Level 3.1 mmol/L (3.5-5.1) Chloride Level 107 mmol/L (98-107) Carbon Dioxide Level 33 mmol/L (21-32) Anion Gap 7 (6-14) Blood Urea Nitrogen 26 mg/dL (7-20) Creatinine 1.6 mg/dL (0.6-1.0) Estimated GFR (Cockcroft-Gault) 33.1 Glucose Level 99 mg/dL (70-99) Calcium Level 8.6 mg/dL (8.5-10.1) Micro Micro Microbiology 12/03/18 Blood Culture - Final, Complete NO GROWTH AFTER 5 DAYS 12/04/18 Stool Culture - Final, Complete 12/04/18 Stool Culture Result 1 (DANIAL) - Final, Complete 12/04/18 Campylobacter Antigen Assay - Final, Complete 12/04/18 Campylobactor Result 1 - Final, Complete 12/04/18 Shiga Toxin Test - Final, Complete 12/03/18 Urine Culture - Final, Complete 12/03/18 Urine Culture Result 1 (DANIAL) - Final, Complete Review of Systems Constitutional: yes: weakness, alert, oriented Ears/Nose/Throat: Yes: no symptom reported Eyes: Yes: no symptom reported Pulmonary: Yes no symptom reported Cardiovascular: Yes edema Gastrointestional: Yes: no symptom reported Genitourinary: Yes: no symptom reported Musculoskeletal: Yes: no symptom reported Skin: Yes no symptom reported Psychiatric/Neurological: Yes: no symptom reported Physical Exam General Appearance: no apparent distress Skin: warm, dry Respiratory: decreased breath sounds Heart: S1S2 Abdomen: soft, bowel sounds present Genitourinary: bladder flat Extremities: pulses present Neurology: alert, oriented Musculoskeletal: Osteoarthritis Assessment Assessment IMP ELISE-IMPROVING WITH CR DOWN TO 1.6 FROM 3.4 GENERALIZED EDEMA RECENT SEPSIS LYMPHOMA S/P CHEMO PLAN ENC PO FLUIDS EXPECT RENAL RECOVERY IV LASIX ONCE TODAY REPLACE K LABS IN AM ANTIBIOTICS REENA ROJAS MD Dec 09, 2018 13:19
[2018-12-09] MEDS ORDERED: FUROSEMIDE 40 MG/4 ML VIAL. IVP ONE (14:00)
[2018-12-09] MEDS ORDERED: POTASSIUM CHLORIDE 20 MEQ TABLET.ER. PO ONE (14:00)
[2018-12-09 14:30] VITALS: BP 149/72
[2018-12-09 19:50] VITALS: BP 142/69
[2018-12-09] MEDS: ACETAMINOPHEN 325 MG TABLET. PO PRN (21:14)
[2018-12-09 23:40] VITALS: BP 156/83
[2018-12-10 03:33] VITALS: BP 150/80
[2018-12-10] MEDS: SYNTHROID 100 MCG PO SCH (06:27)
[2018-12-10 07:00] VITALS: BP 144/65
[2018-12-10 07:03] LABS: ALBUMIN 2.4 g/dL (3.4-5.0); CALCIUM 8.6 mg/dL (8.5-10.1); CREATININE 1.4 mg/dL (0.6-1.0); DIRECT BILIRUBIN 1.7 mg/dL (0.0-0.2); GFR 38.6; MAGNESIUM 1.5 mg/dL (1.8-2.4); POTASSIUM 3.3 mmol/L (3.5-5.1); TOTAL PROTEIN 5.1 g/dL (6.4-8.2)
[2018-12-10] MEDS: METOPROLOL TART IMMED RELEASE 50 MG TABLET. PO SCH (08:45)
[2018-12-10] MEDS: DULoxetine HCL 30 MG CAPSULE.DR PO SCH (08:45)
[2018-12-10] MEDS: CALCIUM CARB/VIT D3 500/200 TABLET. PO SCH (08:45)
[2018-12-10] MEDS: POLYETHYLENE GLYCOL 3350 17 GM PACKET. PO SCH (08:46)
[2018-12-10] MEDS: ASPIRIN CHEWABLE 81 MG TABLET. PO SCH (08:46)
--- NOTE | 2018-12-10 09:25 | PDOC ---
PULMONARY PROGRESS NOTES Subjective PT EATING NOT MORE SOA Vitals Vital Signs Date Time Temp Pulse Resp B/P (MAP) Pulse Ox O2 Delivery O2 Flow Rate FiO2 12/10/18 08:45 75 144/65 12/10/18 07:00 98.6 18 98 Room Air 98.6 ROS: No Nausea, No Chest Pain General: Alert, No acute distress Lungs: Clear Cardiovascular: S1, S2 Abdomen: Soft Neuro Exam: Alert Extremities: Other (jaundice, 1+edema) Skin: Warm, Dry Labs Laboratory Tests Test 12/09/18 06:42 12/10/18 06:34 Sodium Level 147 mmol/L (136-145) 146 mmol/L (136-145) Potassium Level 3.1 mmol/L (3.5-5.1) 3.3 mmol/L (3.5-5.1) Chloride Level 107 mmol/L (98-107) 105 mmol/L (98-107) Carbon Dioxide Level 33 mmol/L (21-32) 35 mmol/L (21-32) Anion Gap 7 (6-14) 6 (6-14) Blood Urea Nitrogen 26 mg/dL (7-20) 21 mg/dL (7-20) Creatinine 1.6 mg/dL (0.6-1.0) 1.4 mg/dL (0.6-1.0) Estimated GFR (Cockcroft-Gault) 33.1 38.6 Glucose Level 99 mg/dL (70-99) 98 mg/dL (70-99) Calcium Level 8.6 mg/dL (8.5-10.1) 8.6 mg/dL (8.5-10.1) Magnesium Level 1.5 mg/dL (1.8-2.4) Total Bilirubin 2.0 mg/dL (0.2-1.0) Direct Bilirubin 1.7 mg/dL (0.0-0.2) Aspartate Amino Transf (AST/SGOT) 38 U/L (15-37) Alanine Aminotransferase (ALT/SGPT) 47 U/L (14-59) Alkaline Phosphatase 509 U/L (46-116) Total Protein 5.1 g/dL (6.4-8.2) Albumin 2.4 g/dL (3.4-5.0) Laboratory Tests Test 12/10/18 06:34 Sodium Level 146 mmol/L (136-145) Potassium Level 3.3 mmol/L (3.5-5.1) Chloride Level 105 mmol/L (98-107) Carbon Dioxide Level 35 mmol/L (21-32) Anion Gap 6 (6-14) Blood Urea Nitrogen 21 mg/dL (7-20) Creatinine 1.4 mg/dL (0.6-1.0) Estimated GFR (Cockcroft-Gault) 38.6 Glucose Level 98 mg/dL (70-99) Calcium Level 8.6 mg/dL (8.5-10.1) Magnesium Level 1.5 mg/dL (1.8-2.4) Total Bilirubin 2.0 mg/dL (0.2-1.0) Direct Bilirubin 1.7 mg/dL (0.0-0.2) Aspartate Amino Transf (AST/SGOT) 38 U/L (15-37) Alanine Aminotransferase (ALT/SGPT) 47 U/L (14-59) Alkaline Phosphatase 509 U/L (46-116) Total Protein 5.1 g/dL (6.4-8.2) Albumin 2.4 g/dL (3.4-5.0) Medications Active Scripts Medications Dose Route/Sig Max Daily Dose Days Date Category Nystatin 100,000 Unit/1 Ml Oral.susp 5 Ml SWSW TID 3 12/01/18 Rx Clotrimazole 45 Gm Cream.appl 1 Estefany VG DAILY 3 12/01/18 Rx Levaquin (Levofloxacin) 500 Mg Tablet 500 Mg PO DAILY06 7 12/01/18 Rx Biotin 10,000 Mcg Capsule 10,000 Mcg PO DAILY 10/10/18 Reported Multivitamins (Multivitamin) 1 Each Tablet 1 Each PO DAILY 05/06/18 Reported Metoprolol Tartrate 25 Mg Tablet 25 Mg PO DAILY 04/17/18 Reported Cymbalta (Duloxetine Hcl) 30 Mg Capsule.dr 1 Cap PO DAILY 04/17/18 Reported Aspirin 81 Mg Tab.chew 1 Tab PO DAILY 02/12/17 Reported Synthroid (Levothyroxine Sodium) 88 Mcg Tablet 100 Mcg PO DAILY 02/11/17 Reported Climara (Estradiol) 1 Each Patch.tdwk 02/11/17 Reported Latanoprost 2.5 Ml Drops 1 Drop EACHEYE QHS 02/11/17 Reported Impression . 1. Septic shock. likely due to colitis. She also has a component of hypovolemic shock as well. improved, off levophed. 2. Marginal zone lymphoma, status post chemo in the first week of November and has immunosuppression. 3. No significant history of tobacco use. 4. Acute kidney injury related to shock. improving 5. Lactic acidosis secondary to septic shock, the levels are improving. 6. Severe protein-calorie malnutrition. Albumin level is 1.7. 7. Elevated liver function test, Bili up to 12. Now sig improving ? chemo induced liver failure, no obstruction/ GI following. MRCP neg 8. Increased troponin level. Follow Cardiology's recommendations. 9. Pancytopenia, chemo vs sepsis induced. improving Plan . D/C HOME TODAY FOLLOW UP NEEDED MADELEINE TINOCO MD Dec 10, 2018 09:25
--- NOTE | 2018-12-10 09:39 | PDOC ---
Subjective: Subjective: Tolerating PO, was excited to report that she stooled after the pancakes and syrup like she thought she would. No GI complaints. Objective: Vital Signs: Vital Signs Date Time Temp Pulse Resp B/P (MAP) Pulse Ox O2 Delivery O2 Flow Rate FiO2 12/10/18 08:45 75 144/65 12/10/18 07:00 98.6 18 98 Room Air 98.6 Labs: Laboratory Tests Test 12/10/18 06:34 Sodium Level 146 mmol/L Potassium Level 3.3 mmol/L Chloride Level 105 mmol/L Carbon Dioxide Level 35 mmol/L Anion Gap 6 Blood Urea Nitrogen 21 mg/dL Creatinine 1.4 mg/dL Estimated GFR (Cockcroft-Gault) 38.6 Glucose Level 98 mg/dL Calcium Level 8.6 mg/dL Magnesium Level 1.5 mg/dL Total Bilirubin 2.0 mg/dL Direct Bilirubin 1.7 mg/dL Aspartate Amino Transf (AST/SGOT) 38 U/L Alanine Aminotransferase (ALT/SGPT) 47 U/L Alkaline Phosphatase 509 U/L Total Protein 5.1 g/dL Albumin 2.4 g/dL PE: GEN: NAD LUNGS: CTAB HEART: RRR ABD: S/ND/NT NEURO/PSYCH: A & O 3, cheerful A/P: Cholestasis - LFTs still improving Marginal zone lymphoma -- Stable from GI standpoint. ALEXANDER ROSS Dec 10, 2018 09:39
--- NOTE | 2018-12-10 10:43 | PDOC ---
Infectious Disease Note Subjective: Subjective Pt says is doing better Rash is better Denies F/C/N/V/D/SOA /ABDO pain ROS: ROS Negative except for above. Vital Signs: Vital Signs Vital Signs Date Time Temp Pulse Resp B/P (MAP) Pulse Ox O2 Delivery O2 Flow Rate FiO2 12/10/18 08:45 75 144/65 12/10/18 08:00 Room Air 12/10/18 07:00 98.6 18 98 98.6 Physical Exam: PHYSICAL EXAM GENERAL: Propped up in bed, alert, NAD HEENT: Oral cavity clear, no thrush or lesions NECK: Supple LUNGS: Clear. HEART: S1, S2 regular. ABDOMEN: Obese, soft and nontender : Cote EXTREMITIES: Trace edema lower extremities , bilaterally. 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 Medications: Inpatient Meds: Current Medications Medications (Trade) Dose Ordered Sig/Angeline Start Time Stop Time Status Last Admin Dose Admin Acetaminophen (Tylenol) 650 mg PRN Q6HRS PRN 12/03/18 07:45 12/09/18 21:14 650 MG Aspirin (Children'S Aspirin) 81 mg DAILY 12/03/18 09:00 12/10/18 08:46 81 MG Calcium Gluconate (Calcium Gluconate) 1,000 mg 1X ONCE 12/05/18 11:15 12/05/18 11:15 DC Calcium Gluconate 1000 mg/Dextrose 110 ml @ 220 mls/hr 1X ONCE 12/05/18 12:00 12/05/18 12:29 DC 12/05/18 12:45 220 MLS/HR Calcium/Vitamin D (Oscal D 500mg/ 200uts) 1 tab [id number] 12/05/18 17:00 12/10/18 08:45 1 TAB Ciprofloxacin/ Dextrose 200 ml @ 200 mls/hr Q12HR 12/03/18 09:00 12/07/18 15:42 DC 12/07/18 09:15 200 MLS/HR Clotrimazole (Mycelex-7) 1 ger DAILY 12/03/18 09:00 12/10/18 08:59 DC 12/04/18 09:36 1 GER Daptomycin 460 mg/ Sodium Chloride 50 ml @ 100 mls/hr Q24H 12/03/18 09:00 12/08/18 12:24 DC 12/08/18 10:40 100 MLS/HR Diphenhydramine HCl (Benadryl) 25 mg PRN Q6HRS PRN 12/03/18 04:45 Duloxetine HCl (Cymbalta) 30 mg DAILY 12/03/18 09:00 12/10/18 08:45 30 MG Furosemide (Lasix) 40 mg 1X ONCE 12/09/18 14:00 12/09/18 14:01 DC 12/09/18 14:43 40 MG Heparin Sodium (Porcine) (Heparin Sodium) 5,000 unit Q8HRS 12/03/18 08:00 12/05/18 15:26 DC 12/05/18 15:18 5,000 UNIT Info (CONTRAST GIVEN -- Rx MONITORING) 1 each PRN DAILY PRN 12/03/18 00:30 12/05/18 00:29 DC Info (Icu Electrolyte Protocol) 1 ea DAILY 12/03/18 09:00 12/08/18 13:56 DC 12/06/18 07:33 1 EA Iohexol (Omnipaque 300 Mg/ml) 100 ml STK-MED ONCE 12/03/18 06:01 12/03/18 06:02 DC Levothyroxine Sodium (Synthroid) 100 mcg DAILY06 12/03/18 08:00 Cancel Lorazepam (Ativan) 0.5 mg PRN Q6HRS PRN 12/03/18 07:45 Magnesium Sulfate 50 ml @ 25 mls/hr 1X ONCE 12/03/18 10:00 12/03/18 11:59 DC 12/03/18 11:09 25 MLS/HR Magnesium Sulfate/ Dextrose 100 ml @ 100 mls/hr 1X ONCE 12/03/18 02:00 12/03/18 02:59 DC 12/03/18 02:08 100 MLS/HR Meropenem 1 gm/ Sodium Chloride 100 ml @ 200 mls/hr Q12HR 12/03/18 09:00 12/09/18 10:58 DC 12/09/18 08:41 200 MLS/HR Metoprolol Tartrate (Lopressor) 50 mg BID 12/09/18 09:00 12/10/18 08:45 50 MG Micafungin Sodium 100 mg/Dextrose 100 ml @ 100 mls/hr Q24H 12/03/18 09:00 12/08/18 12:24 DC 12/08/18 11:28 100 MLS/HR Morphine Sulfate (Morphine Sulfate) 2 mg PRN Q1HR PRN 12/03/18 07:45 Non-Formulary Medication 1 ea DAILY06 12/03/18 09:30 12/10/18 06:27 1 EA Norepinephrine Bitartrate 250 ml @ 1.875 mls/ hr CONT PRN 12/03/18 11:15 12/06/18 12:28 DC 12/04/18 14:24 11.63 MLS/HR Nystatin (Nystatin Oral Susp) 5 ml TID 12/03/18 09:00 12/03/18 10:21 DC Ondansetron HCl (Zofran Odt) 4 mg PRN Q6HRS PRN 12/07/18 11:30 Ondansetron HCl (Zofran) 4 mg PRN Q6HRS PRN 12/07/18 11:30 Cancel Oxycodone/ Acetaminophen (Percocet 5/325) 1 tab PRN Q4HRS PRN 12/03/18 07:45 Polyethylene Glycol (miraLAX PACKET) 17 gm PRN DAILY PRN 12/09/18 10:00 Potassium Chloride (Klor-Con) 40 meq 1X ONCE 12/09/18 14:00 12/09/18 14:01 DC 12/09/18 14:44 40 MEQ Sodium Chloride 1,000 ml @ 75 mls/hr [id number] 12/05/18 11:45 12/07/18 10:00 DC 12/07/18 05:35 75 MLS/HR Sodium Chloride (Normal Saline Flush) 3 ml QSHIFT PRN 12/03/18 07:45 Tbo-Filgrastim (Granix) 480 mcg QHS 12/05/18 21:00 12/07/18 13:08 DC 12/06/18 21:35 480 MCG Vancomycin HCl (Vanco Per Pharmacy) 1 each PRN DAILY PRN 12/02/18 23:30 12/03/18 07:49 DC 12/03/18 03:45 1 EACH Vancomycin HCl (Vancomycin Trough Level) 1 each 1X ONCE 12/04/18 23:30 12/04/18 23:30 DC Vancomycin HCl (Vancomycin Oral Solution) 125 mg [id number] 12/03/18 09:00 12/05/18 11:39 DC 12/04/18 20:34 125 MG Vancomycin HCl 1.75 gm/Sodium Chloride 500 ml @ 250 mls/hr Q24H 12/04/18 00:00 12/04/18 00:00 DC Vancomycin HCl 2 gm/Sodium Chloride 500 ml @ 250 mls/hr 1X ONCE 12/03/18 00:30 12/03/18 02:29 DC 12/03/18 00:12 150 MLS/HR Vasopressin 40 unit/Dextrose 102 ml @ 6 mls/hr CONT PRN 12/03/18 15:00 12/06/18 12:45 DC 12/04/18 09:01 6 MLS/HR Labs: Lab Laboratory Tests Test 12/10/18 06:34 Sodium Level 146 mmol/L (136-145) Potassium Level 3.3 mmol/L (3.5-5.1) Chloride Level 105 mmol/L (98-107) Carbon Dioxide Level 35 mmol/L (21-32) Anion Gap 6 (6-14) Blood Urea Nitrogen 21 mg/dL (7-20) Creatinine 1.4 mg/dL (0.6-1.0) Estimated GFR (Cockcroft-Gault) 38.6 Glucose Level 98 mg/dL (70-99) Calcium Level 8.6 mg/dL (8.5-10.1) Magnesium Level 1.5 mg/dL (1.8-2.4) Total Bilirubin 2.0 mg/dL (0.2-1.0) Direct Bilirubin 1.7 mg/dL (0.0-0.2) Aspartate Amino Transf (AST/SGOT) 38 U/L (15-37) Alanine Aminotransferase (ALT/SGPT) 47 U/L (14-59) Alkaline Phosphatase 509 U/L (46-116) Total Protein 5.1 g/dL (6.4-8.2) Albumin 2.4 g/dL (3.4-5.0) Objective: Assessment: Fever,resolved cult neg Pancytopenia,, WBC count now WNL Lactic acidosis resolved Rash ? from Bendamustine, resolving Dehydration ELISE Hypotension, now off vasopressors Marginal zone lymphoma ? Hepato/renal syndrome Hyperbilirubinemia,,,improving ,MRCP noted Allergy PCN and Sulfa Plan: Plan of Care Observe off antibiotics,pt has been on antibiotics since last admission been dc home per primary team f/u with pcp next week D/W D/w nursing JOIE CARMONA MD Dec 10, 2018 10:43
[2018-12-10 11:00] VITALS: BP 131/72
--- NOTE | 2018-12-10 11:01 | PDOC ---
PROGRESS NOTES Chief Complaint Chief Complaint Marginal zone lymphoma on chemotherapy Neutropenic fever, last chemotherapy November 16, 2018 Elbow pain, left Anemia of chronic disease Septic shock-off levophed Urine culture, blood culture negative Diarrhea 1 episode Colitis on CAT scan Left arm swelling-previous IV site - neg DVT Bilateral leg edema secondary to IV fluid resuscitation - better after x 1 lasix AK I VMN-better INdWelling right-sided Port-A-Cath for chemotherapy NEg DVT left arm-previous site of IV NOn Sustained V. tach, asymptomatic, 12/08/18 full Code History of Present Illness History of Present Illness off IVV medications Got Lasix 1 by renal to help with the swelling, that seems to be a bit better Creatinine stable She does not want to go home today when I touched on discharge again today, she does not want to be readmitted again so wants everything to be "okay" before she actually discharges No PT needs Left elbow still hurts, negative Dopplers-she had a previous IV line there Plan: check elbow x-ray, likely this will be normal Consult physiatry, she seems unpleased if she will go home with left elbow pain Technically ready for medical discharge Vitals Vitals Vital Signs Date Time Temp Pulse Resp B/P (MAP) Pulse Ox O2 Delivery O2 Flow Rate FiO2 12/10/18 08:45 75 144/65 12/10/18 08:00 Room Air 12/10/18 07:00 98.6 18 98 98.6 Physical Exam Physical Exam GENERAL: Propped up in bed, alert, NAD HEENT: Oral cavity clear, no thrush or lesions NECK: Supple LUNGS: Clear. HEART: S1, S2 regular. ABDOMEN: Obese, soft and nontender : [place] EXTREMITIES: Trace edema lower extremities , bilaterally. No cyanosis SKIN: Jaundiced, Maculopapular rash,,, right arm > left arm, fading [facility] PULP: Alert, responds appropriately Port-A-Cath without signs of any complications . General: Alert, Oriented X3, No acute distress Heart: Normal S1, Normal S2 Lungs: Clear Abdomen: No tenderness Extremities: No clubbing, No cyanosis, Other (1+ bilateral LE pitting edema, tender and swollen left arm, mostly elbow) Skin: No breakdown, No significant lesion Labs LABS Laboratory Tests Test 12/10/18 06:34 Sodium Level 146 mmol/L (136-145) Potassium Level 3.3 mmol/L (3.5-5.1) Chloride Level 105 mmol/L (98-107) Carbon Dioxide Level 35 mmol/L (21-32) Anion Gap 6 (6-14) Blood Urea Nitrogen 21 mg/dL (7-20) Creatinine 1.4 mg/dL (0.6-1.0) Estimated GFR (Cockcroft-Gault) 38.6 Glucose Level 98 mg/dL (70-99) Calcium Level 8.6 mg/dL (8.5-10.1) Magnesium Level 1.5 mg/dL (1.8-2.4) Total Bilirubin 2.0 mg/dL (0.2-1.0) Direct Bilirubin 1.7 mg/dL (0.0-0.2) Aspartate Amino Transf (AST/SGOT) 38 U/L (15-37) Alanine Aminotransferase (ALT/SGPT) 47 U/L (14-59) Alkaline Phosphatase 509 U/L (46-116) Total Protein 5.1 g/dL (6.4-8.2) Albumin 2.4 g/dL (3.4-5.0) Review of Systems Review of Systems left Elbow pain, the rest of ROS negative Comment Review of Relevant I have reviewed the following items kike (where applicable) has been applied. Labs Laboratory Tests Test 12/09/18 06:42 12/10/18 06:34 Sodium Level 147 mmol/L (136-145) 146 mmol/L (136-145) Potassium Level 3.1 mmol/L (3.5-5.1) 3.3 mmol/L (3.5-5.1) Chloride Level 107 mmol/L (98-107) 105 mmol/L (98-107) Carbon Dioxide Level 33 mmol/L (21-32) 35 mmol/L (21-32) Anion Gap 7 (6-14) 6 (6-14) Blood Urea Nitrogen 26 mg/dL (7-20) 21 mg/dL (7-20) Creatinine 1.6 mg/dL (0.6-1.0) 1.4 mg/dL (0.6-1.0) Estimated GFR (Cockcroft-Gault) 33.1 38.6 Glucose Level 99 mg/dL (70-99) 98 mg/dL (70-99) Calcium Level 8.6 mg/dL (8.5-10.1) 8.6 mg/dL (8.5-10.1) Magnesium Level 1.5 mg/dL (1.8-2.4) Total Bilirubin 2.0 mg/dL (0.2-1.0) Direct Bilirubin 1.7 mg/dL (0.0-0.2) Aspartate Amino Transf (AST/SGOT) 38 U/L (15-37) Alanine Aminotransferase (ALT/SGPT) 47 U/L (14-59) Alkaline Phosphatase 509 U/L (46-116) Total Protein 5.1 g/dL (6.4-8.2) Albumin 2.4 g/dL (3.4-5.0) Laboratory Tests Test 12/10/18 06:34 Sodium Level 146 mmol/L (136-145) Potassium Level 3.3 mmol/L (3.5-5.1) Chloride Level 105 mmol/L (98-107) Carbon Dioxide Level 35 mmol/L (21-32) Anion Gap 6 (6-14) Blood Urea Nitrogen 21 mg/dL (7-20) Creatinine 1.4 mg/dL (0.6-1.0) Estimated GFR (Cockcroft-Gault) 38.6 Glucose Level 98 mg/dL (70-99) Calcium Level 8.6 mg/dL (8.5-10.1) Magnesium Level 1.5 mg/dL (1.8-2.4) Total Bilirubin 2.0 mg/dL (0.2-1.0) Direct Bilirubin 1.7 mg/dL (0.0-0.2) Aspartate Amino Transf (AST/SGOT) 38 U/L (15-37) Alanine Aminotransferase (ALT/SGPT) 47 U/L (14-59) Alkaline Phosphatase 509 U/L (46-116) Total Protein 5.1 g/dL (6.4-8.2) Albumin 2.4 g/dL (3.4-5.0) Microbiology 12/03/18 Blood Fungal Culture - Preliminary, Resulted 12/03/18 Fungal Culture Result 1 - Preliminary, Resulted 12/04/18 Stool Culture - Final, Complete 12/04/18 Stool Culture Result 1 (DANIAL) - Final, Complete 12/04/18 Campylobacter Antigen Assay - Final, Complete 12/04/18 Campylobactor Result 1 - Final, Complete 12/04/18 Shiga Toxin Test - Final, Complete 12/03/18 Urine Culture - Final, Complete 12/03/18 Urine Culture Result 1 (DANIAL) - Final, Complete Medications Current Medications Sodium Chloride 1,000 ml @ 1,000 mls/hr 1X ONCE IV Last administered on at 23:50; Start 12/02/18 at 23:30; Stop 12/03/18 at 00:29; Status DC Sodium Chloride 1,000 ml @ 1,000 mls/hr 1X ONCE IV Last administered on at 00:08; Start 12/02/18 at 23:30; Stop 12/03/18 at 00:29; Status DC Meropenem 1 gm/ Sodium Chloride 100 ml @ 200 mls/hr Q8HRS IV Last administered on 12/02/18at 23:51; Start 12/03/18 at 00:00; Stop 12/03/18 at 03:21 ; Status DC Vancomycin HCl (Vanco Per Pharmacy) 1 each PRN DAILY PRN MC SEE COMMENTS Last administered on 12/03/18at 03:45; Start 12/02/18 at 23:30; Stop 12/03/18 at 07:49 ; Status DC Vancomycin HCl 2 gm/Sodium Chloride 500 ml @ 250 mls/hr 1X ONCE IV Last administered on 12/03/18at 00:12; Start 12/03/18 at 00:30; Stop 12/03/18 at 02:29 ; Status DC Iohexol (Omnipaque 300 Mg/ml) 75 ml 1X ONCE IV Last administered on 12/03/18at 00:41; Start 12/03/18 at 01:00; Stop 12/03/18 at 01:01; Status DC Info (CONTRAST GIVEN -- Rx MONITORING) 1 each PRN DAILY PRN MC SEE COMMENTS; Start 12/03/18 at 00:30; Stop 12/05/18 at 00:29; Status DC Sodium Chloride 1,000 ml @ 1,000 mls/hr 1X ONCE IV Last administered on at 01:08; Start 12/03/18 at 01:00; Stop 12/03/18 at 01:59; Status DC Norepinephrine Bitartrate 250 ml @ 0 mls/hr 1X ONCE IV Last administered on at 01:24; Start 12/03/18 at 01:30; Stop 12/03/18 at 01:31; Status DC Diphenhydramine HCl (Benadryl) 25 mg 1X ONCE IVP Last administered on at 02:01; Start 12/03/18 at 02:00; Stop 12/03/18 at 02:01; Status DC Magnesium Sulfate/ Dextrose 100 ml @ 100 mls/hr 1X ONCE IV Last administered on 12/03/18at 02:08; Start 12/03/18 at 02:00; Stop 12/03/18 at 02:59; Status DC Aspirin (Children'S Aspirin) 324 mg 1X ONCE PO Last administered on 12/03/18at 01:59; Start 12/03/18 at 02:00; Stop 12/03/18 at 02:01; Status DC Sodium Chloride 1,000 ml @ 175 mls/hr Q5H43M IV Last administered on at 04:23; Start 12/03/18 at 03:30; Stop 12/04/18 at 03:29; Status DC Meropenem 1 gm/ Sodium Chloride 100 ml @ 200 mls/hr Q12HR IV Last administered on 12/09/18at 08:41; Start 12/03/18 at 09:00; Stop 12/09/18 at 10:58 ; Status DC Vancomycin HCl 1.75 gm/Sodium Chloride 500 ml @ 250 mls/hr Q24H IV ; Start at 00:00; Stop 12/04/18 at 00:00; Status DC Vancomycin HCl (Vancomycin Trough Level) 1 each 1X ONCE MC ; Start 12/04/18 at 23:30; Stop 12/04/18 at 23:30; Status DC Diphenhydramine HCl (Benadryl) 25 mg PRN Q6HRS PRN IVP ITCHING; Start 12/03/18 at 04:45 Iohexol (Omnipaque 300 Mg/ml) 100 ml STK-MED ONCE .ROUTE ; Start 12/03/18 at 06: 01; Stop 12/03/18 at 06:02; Status DC Vancomycin HCl (Vancomycin Oral Solution) 125 mg [id number] PO Last administered on 12/04/18at 20:34; Start 12/03/18 at 09:00; Stop 12/05/18 at 11:39; Status DC Acetaminophen (Tylenol) 650 mg PRN Q6HRS PRN PO Headaches, Temp > 101.5' Last administered on 12/09/18at 21:14; Start 12/03/18 at 07:45 Lorazepam (Ativan) 0.5 mg PRN Q6HRS PRN IV ANXIETY / AGITATION; Start 12/03/18 at 07:45 Ondansetron HCl (Zofran) 4 mg PRN Q6HRS PRN IV NAUSEA/VOMITING Last administered on 12/05/18at 05:47; Start 12/03/18 at 07:45 Info (Icu Electrolyte Protocol) 1 ea DAILY MC Last administered on 12/06/18 07 :33; Start 12/03/18 at 09:00; Stop 12/08/18 at 13:56; Status DC Heparin Sodium (Porcine) (Heparin Sodium) 5,000 unit Q8HRS SQ Last administered on 12/05/18 15:18; Start 12/03/18 at 08:00; Stop 12/05/18 at 15:26 ; Status DC Sodium Chloride (Normal Saline Flush) 3 ml QSHIFT PRN IV AFTER MEDS AND BLOOD DRAWS; Start 12/03/18 at 07:45 Oxycodone/ Acetaminophen (Percocet 5/325) 1 tab PRN Q4HRS PRN PO PAIN; Start at 07:45 Morphine Sulfate (Morphine Sulfate) 2 mg PRN Q1HR PRN IV PAIN; Start 12/03/18 at 07:45 Aspirin (Children'S Aspirin) 81 mg DAILY PO Last administered on 12/10/18at 08: 46; Start 12/03/18 at 09:00 Clotrimazole (Mycelex-7) 1 estefany DAILY VG Last administered on 12/04/18at 09:36; Start 12/03/18 at 09:00; Stop 12/10/18 at 08:59; Status DC Duloxetine HCl (Cymbalta) 30 mg DAILY PO Last administered on 12/10/18at 08:45; Start 12/03/18 at 09:00 Levothyroxine Sodium (Synthroid) 100 mcg DAILY06 PO ; Start 12/03/18 at 08:00; Status Cancel Nystatin (Nystatin Oral Susp) 5 ml TID SWSW ; Start 12/03/18 at 09:00; Stop at 10:21; Status DC Ciprofloxacin/ Dextrose 200 ml @ 200 mls/hr Q12HR IV Last administered on 12/07at 09:15; Start 12/03/18 at 09:00; Stop 12/07/18 at 15:42; Status DC Daptomycin 460 mg/ Sodium Chloride 50 ml @ 100 mls/hr Q24H IV Last administered on 12/08/18at 10:40; Start 12/03/18 at 09:00; Stop 12/08/18 at 12:24 ; Status DC Micafungin Sodium 100 mg/Dextrose 100 ml @ 100 mls/hr Q24H IV Last administered on 12/08/18 11:28; Start 12/03/18 at 09:00; Stop 12/08/18 at 12:24 ; Status DC Non-Formulary Medication 1 ea DAILY06 PO Last administered on 12/10/18at 06:27; Start 12/03/18 at 09:30 Magnesium Sulfate 50 ml @ 25 mls/hr 1X ONCE IV Last administered on 12/03/18at 11:09; Start 12/03/18 at 10:00; Stop 12/03/18 at 11:59; Status DC Norepinephrine Bitartrate 250 ml @ 1.875 mls/ hr CONT PRN IV SEE I/O RECORD Last administered on 12/04/18at 14:24; Start 12/03/18 at 11:15; Stop 12/06/18 at 12:28; Status DC Sodium Chloride 1,000 ml @ 999 mls/hr Q1H1M IV Last administered on 12/03/18at 14:24; Start 12/03/18 at 13:45; Stop 12/03/18 at 14:32; Status DC Vasopressin 40 unit/Dextrose 102 ml @ 6 mls/hr CONT PRN IV SEE I/O RECORD Last administered on 12/04/18at 09:01; Start 12/03/18 at 15:00; Stop 12/06/18 at 12:45 ; Status DC Sodium Chloride 1,000 ml @ 100 mls/hr Q10H IV Last administered on 12/05/18at 11:07; Start 12/04/18 at 20:45; Stop 12/05/18 at 11:34; Status DC Tbo-Filgrastim (Granix) 480 mcg QHS SQ Last administered on 12/06/18at 21:35; Start 12/05/18 at 21:00; Stop 12/07/18 at 13:08; Status DC Calcium Gluconate (Calcium Gluconate) 1,000 mg 1X ONCE IVP ; Start 12/05/18 at 11:15; Stop 12/05/18 at 11:15; Status DC Calcium/Vitamin D (Oscal D 500mg/ 200uts) 1 tab BIDWMEALS PO Last administered on 12/10/18at 08:45; Start 12/05/18 at 17:00 Calcium Gluconate 1000 mg/Dextrose 110 ml @ 220 mls/hr 1X ONCE IV Last administered on 12/05/18at 12:45; Start 12/05/18 at 12:00; Stop 12/05/18 at 12:29 ; Status DC Sodium Chloride 1,000 ml @ 75 mls/hr [id number] IV Last administered on at 05:35; Start 12/05/18 at 11:45; Stop 12/07/18 at 10:00; Status DC Ondansetron HCl (Zofran) 4 mg PRN Q6HRS PRN IV NAUSEA/VOMITING; Start 12/07/18 at 11:30; Status Cancel Ondansetron HCl (Zofran Odt) 4 mg PRN Q6HRS PRN PO NAUSEA/VOMITING; Start 12/07 at 11:30 Metoprolol Tartrate (Lopressor) 25 mg BID PO Last administered on 12/08/18at 13: 56; Start 12/08/18 at 13:30; Stop 12/09/18 at 08:30; Status DC Metoprolol Tartrate (Lopressor) 50 mg BID PO Last administered on 12/10/18at 08: 45; Start 12/09/18 at 09:00 Polyethylene Glycol (miraLAX PACKET) 17 gm DAILY PO ; Start 12/09/18 at 10:30; Stop 12/10/18 at 09:40; Status DC Polyethylene Glycol (miraLAX PACKET) 17 gm PRN DAILY PRN PO CONSTIPATION; Start 12/09/18 at 10:00 Furosemide (Lasix) 40 mg 1X ONCE IVP Last administered on 12/09/18at 14:43; Start 12/09/18 at 14:00; Stop 12/09/18 at 14:01; Status DC Potassium Chloride (Klor-Con) 40 meq 1X ONCE PO Last administered on at 14:44; Start 12/09/18 at 14:00; Stop 12/09/18 at 14:01; Status DC Active Scripts Active Nystatin 100,000 Unit/1 Ml Oral.susp 5 Ml SWSW TID 3 Days Clotrimazole 45 Gm Cream.appl 1 Estefany VG DAILY 3 Days Levaquin (Levofloxacin) 500 Mg Tablet 500 Mg PO DAILY06 7 Days Reported Biotin 10,000 Mcg Capsule 10,000 Mcg PO DAILY Multivitamins (Multivitamin) 1 Each Tablet 1 Each PO DAILY Metoprolol Tartrate 25 Mg Tablet 25 Mg PO DAILY Cymbalta (Duloxetine Hcl) 30 Mg Capsule.dr 1 Cap PO DAILY Aspirin 81 Mg Tab.chew 1 Tab PO DAILY Synthroid (Levothyroxine Sodium) 88 Mcg Tablet 100 Mcg PO DAILY Climara (Estradiol) 1 Each Patch.tdwk Latanoprost 2.5 Ml Drops 1 Drop EACHEYE [facility] Vitals/I & O Vital Sign - Last 24 Hours 12/09/18 12/09/18 12/09/18 12/09/18 11:01 14:30 19:50 20:00 Temp 97.8 98.0 98.2 97.8 98.0 98.2 Pulse 82 84 87 Resp 18 17 18 B/P (MAP) 142/76 (98) 149/72 (97) 142/69 (93) Pulse Ox 96 97 93 O2 Delivery Room Air Room Air Room Air Room Air 12/09/18 12/09/18 12/10/18 12/10/18 21:14 23:40 03:33 07:00 Temp 98.4 98.0 98.6 98.4 98.0 98.6 Pulse 87 78 82 75 Resp 18 18 18 B/P (MAP) 142/69 156/83 (107) 150/80 (103) 144/65 (91) Pulse Ox 95 96 98 O2 Delivery Room Air Room Air Room Air 12/10/18 12/10/18 08:00 08:45 Pulse 75 B/P (MAP) 144/65 O2 Delivery Room Air Intake and Output 12/09/18 12/09/1812/10/19 15:00 23:00 07:00 Intake Total 800 ml 150 ml Output Total 2000 ml Balance -2000 ml 800 ml 150 ml GUERITA CONTRERAS MD Dec 10, 2018 11:01
--- NOTE | 2018-12-10 11:45 | PDOC3 ---
Discharge Summary Visit Information Date of Admission: Dec 03, 2018 Date of Discharge: Dec 10, 2018 Admitting Diagnosis Comment: Marginal zone lymphoma on chemotherapy Neutropenic fever, last chemotherapy November 16, 2018 Elbow pain, left Anemia of chronic disease Septic shock-off levophed Urine culture, blood culture negative Diarrhea 1 episode Colitis on CAT scan Left arm swelling-previous IV site - neg DVT Bilateral leg edema secondary to IV fluid resuscitation - better after x 1 lasix AK I VMN-better INdWelling right-sided Port-A-Cath for chemotherapy NEg DVT left arm-previous site of IV NOn Sustained V. tach, asymptomatic, 12/08/18 full Code Brief Hospital Course Allergies Allergies Coded Allergies Type Severity Reaction Last Updated Verified Penicillins Allergy Severe DIFFICULTY BREATHING 05/07/18 Yes Sulfa (Sulfonamide Antibiotics) Allergy Intermediate 05/07/18 Yes oxycodone Allergy Intermediate Itching 05/07/18 Yes prednisone Allergy Intermediate 05/07/18 Yes Vital Signs Vital Signs Date Time Temp Pulse Resp B/P (MAP) Pulse Ox O2 Delivery O2 Flow Rate FiO2 12/10/18 08:45 75 144/65 12/10/18 08:00 Room Air 12/10/18 07:00 98.6 18 98 98.6 Lab Results Laboratory Tests Test 12/09/18 06:42 12/10/18 06:34 Sodium Level 147 mmol/L (136-145) 146 mmol/L (136-145) Potassium Level 3.1 mmol/L (3.5-5.1) 3.3 mmol/L (3.5-5.1) Chloride Level 107 mmol/L (98-107) 105 mmol/L (98-107) Carbon Dioxide Level 33 mmol/L (21-32) 35 mmol/L (21-32) Anion Gap 7 (6-14) 6 (6-14) Blood Urea Nitrogen 26 mg/dL (7-20) 21 mg/dL (7-20) Creatinine 1.6 mg/dL (0.6-1.0) 1.4 mg/dL (0.6-1.0) Estimated GFR (Cockcroft-Gault) 33.1 38.6 Glucose Level 99 mg/dL (70-99) 98 mg/dL (70-99) Calcium Level 8.6 mg/dL (8.5-10.1) 8.6 mg/dL (8.5-10.1) Magnesium Level 1.5 mg/dL (1.8-2.4) Total Bilirubin 2.0 mg/dL (0.2-1.0) Direct Bilirubin 1.7 mg/dL (0.0-0.2) Aspartate Amino Transf (AST/SGOT) 38 U/L (15-37) Alanine Aminotransferase (ALT/SGPT) 47 U/L (14-59) Alkaline Phosphatase 509 U/L (46-116) Total Protein 5.1 g/dL (6.4-8.2) Albumin 2.4 g/dL (3.4-5.0) Laboratory Tests Test 12/10/18 06:34 Sodium Level 146 mmol/L (136-145) Potassium Level 3.3 mmol/L (3.5-5.1) Chloride Level 105 mmol/L (98-107) Carbon Dioxide Level 35 mmol/L (21-32) Anion Gap 6 (6-14) Blood Urea Nitrogen 21 mg/dL (7-20) Creatinine 1.4 mg/dL (0.6-1.0) Estimated GFR (Cockcroft-Gault) 38.6 Glucose Level 98 mg/dL (70-99) Calcium Level 8.6 mg/dL (8.5-10.1) Magnesium Level 1.5 mg/dL (1.8-2.4) Total Bilirubin 2.0 mg/dL (0.2-1.0) Direct Bilirubin 1.7 mg/dL (0.0-0.2) Aspartate Amino Transf (AST/SGOT) 38 U/L (15-37) Alanine Aminotransferase (ALT/SGPT) 47 U/L (14-59) Alkaline Phosphatase 509 U/L (46-116) Total Protein 5.1 g/dL (6.4-8.2) Albumin 2.4 g/dL (3.4-5.0) Brief Hospital Course Ms. Tenorio is a 58 old with history of marginal zone lymphoma on chemotherapy. Admitted because of neutropenic fever and septic shock from maybe colitis rather mild on CAT scan. Needed levophed in the ICU. Blood culture so far negative, had 1 episode diarrhea but stools are negative. Was able to transfer out of ICU. After he blood pressure on the high side now, had some nonsustained V. tach because we are holding metoprolol because of blood pressure. But now I have resume metoprolol and so far no cardiac issues so far. She had some left arm pain the previous site of IV line but that is negative for DVT. Concerns persisting left elbow pain she wanted to be addressed. We are consulted physiatry checking a left elbow x-ray but if that is good she can go home. Course of for some AK I VMN needed renal on board. Get got puffy because of IV fluid resuscitation resuscitation from hypotension resolved somewhat with 1 dose Lasix. Cleared from all specialist to go home, remains off antibiotics. Likely neutropenic fever. Otherwise home today to continue beta iqra dose 25 twice a day, 6 minute walk to be done as per her request. But so far she has no desaturations less than 88% Consults performed pulmonary, renal, ID Procedures performed multiple tests Discharge disposition home with no PT needs Instructions follow-up for chemotherapy for her marginal zone lymphoma dc 32 mins dc pulmo Discharge Information Condition at Discharge: Improved, Stable Follow Up: Weeks (ff up up heme oncology as instructed) Disposition/Orders: D/C to Home Scheduled Aspirin (Aspirin) 81 Mg Tab.chew, 1 TAB PO DAILY, #30 Ref 3 (Reported) Entered as Reported by: BRAD RODRIGUES on 02/12/17 1439 Last Action: Continued on 12/03/18 0748 by SHANDA NATH MD Biotin (Biotin) 10,000 Mcg Capsule, 10,000 MCG PO DAILY for supplement, ( Reported) Entered as Reported by: RADHAMES GARVIN on 10/10/18 1150 Last Action: HELD on 12/08/18 1259 by GUERITA CONTRERAS Clotrimazole (Clotrimazole) 45 Gm Cream.appl, 1 GRAYSON VG DAILY for vaginitis for 3 Days, #3 Prescribed by: HAO DIGGS MD on 12/01/18 1309 Last Action: Continued on 12/03/18 0748 by SHANDA NATH MD Duloxetine Hcl (Cymbalta) 30 Mg Capsule.dr, 1 CAP PO DAILY, #30 Ref 5 (Reported) Entered as Reported by: ADRIANE SULLIVAN on 04/17/18 0440 Last Action: Continued on 12/03/18 0748 by SHANDA NATH MD Latanoprost (Latanoprost) 2.5 Ml Drops, 1 DROP EACHEYE QHS, #2.5 Ref 6 (Reported ) Entered as Reported by: SUZANNA DE PAZ on 02/11/17 0452 Last Action: HELD on 12/08/181258 by GUERITA CONTRERAS Levofloxacin (Levaquin) 500 Mg Tablet, 500 MG PO DAILY06 for Neutropenic fever for 7 Days, #7 Prescribed by: HAO DIGGS MD on 12/01/18 1309 Last Action: HELD on 12/08/181258 by GUERITA CONTRERAS Levothyroxine Sodium (Synthroid) 88 Mcg Tablet, 100 MCG PO DAILY, #30 (Reported) Entered as Reported by: SUZANNA DE PAZ on 02/11/17 0501 Last Action: Continued on 12/03/18747 by SHANDA NATH MD Metoprolol Tartrate (Metoprolol Tartrate) 25 Mg Tablet, 25 MG PO DAILY for FOR HYPERTENSION, #60 Ref 0 (Reported) Entered as Reported by: CHAPO LLANES on 04/17/18 1050 Last Action: Continued on 12/08/181258 by GUERITA CONTRERAS Multivitamin (Multivitamins) 1 Each Tablet, 1 EACH PO DAILY, (Reported) Entered as Reported by: IZA LEE on 05/06/18 1147 Last Action: HELD on 12/08/181258 by GUERITA CONTRERAS Nystatin (Nystatin) 100,000 Unit/1 Ml Oral.susp, 5 ML SWSW TID for thrush for 3 Days, #9 Prescribed by: HAO DIGGS MD on 12/01/181308 Last Action: Converted on 12/03/18747 by SHANDA NATH MD Miscellaneous Medications Estradiol (Climara) 1 Each Patch.tdwk, #4 (Reported) Entered as Reported by: SUZANNA DE PAZ on 02/11/17 0501 Last Action: HELD on 12/08/181258 by GUERITA VARGAS MD Dec 10, 2018 11:45
[2018-12-10] MEDS ORDERED: OXYC1TAB15 PO (11:46)
--- NOTE | 2018-12-10 13:01 | RAD ---
EXAM: Left elbow, 2 views. HISTORY: Pain. COMPARISON: None. FINDINGS: 2 views left elbow are obtained. There is no fracture, dislocation or subluxation. There is no elbow effusion. IMPRESSION: No acute osseous finding. Electronically signed by: Anabel Do MD (12/10/2018 12:58 PM) [place] [id number]
--- NOTE | 2018-12-10 14:51 | PDOC ---
Renal-Progress Notes Subjective Notes Notes FEELS WELL History of Present Illness Hx of present illness STABLE Vitals Vitals Vital Signs Date Time Temp Pulse Resp B/P (MAP) Pulse Ox O2 Delivery O2 Flow Rate FiO2 12/10/18 11:00 98.4 72 18 131/72 (91) 97 Room Air 98.4 Weight Weight [ ] I.O. Intake and Output Intake and Output 12/10/18 07:00 Intake Total 950 ml Output Total 2000 ml Balance -1050 ml Intake Oral 950 ml Output Urine Total 2000 ml # Voids 4 Labs Labs Laboratory Tests Test 12/10/18 06:34 Sodium Level 146 mmol/L (136-145) Potassium Level 3.3 mmol/L (3.5-5.1) Chloride Level 105 mmol/L (98-107) Carbon Dioxide Level 35 mmol/L (21-32) Anion Gap 6 (6-14) Blood Urea Nitrogen 21 mg/dL (7-20) Creatinine 1.4 mg/dL (0.6-1.0) Estimated GFR (Cockcroft-Gault) 38.6 Glucose Level 98 mg/dL (70-99) Calcium Level 8.6 mg/dL (8.5-10.1) Magnesium Level 1.5 mg/dL (1.8-2.4) Total Bilirubin 2.0 mg/dL (0.2-1.0) Direct Bilirubin 1.7 mg/dL (0.0-0.2) Aspartate Amino Transf (AST/SGOT) 38 U/L (15-37) Alanine Aminotransferase (ALT/SGPT) 47 U/L (14-59) Alkaline Phosphatase 509 U/L (46-116) Total Protein 5.1 g/dL (6.4-8.2) Albumin 2.4 g/dL (3.4-5.0) Micro Micro Microbiology 12/03/18 Blood Fungal Culture - Preliminary, Resulted 12/03/18 Fungal Culture Result 1 - Preliminary, Resulted 12/04/18 Stool Culture - Final, Complete 12/04/18 Stool Culture Result 1 (DANIAL) - Final, Complete 12/04/18 Campylobacter Antigen Assay - Final, Complete 12/04/18 Campylobactor Result 1 - Final, Complete 12/04/18 Shiga Toxin Test - Final, Complete 12/03/18 Urine Culture - Final, Complete 12/03/18 Urine Culture Result 1 (DANIAL) - Final, Complete Review of Systems Constitutional: yes: weakness, alert, oriented Ears/Nose/Throat: Yes: no symptom reported Eyes: Yes: no symptom reported Pulmonary: Yes no symptom reported Cardiovascular: Yes edema Gastrointestional: Yes: no symptom reported Genitourinary: Yes: no symptom reported Musculoskeletal: Yes: no symptom reported Skin: Yes no symptom reported Psychiatric/Neurological: Yes: no symptom reported Physical Exam General Appearance: no apparent distress Skin: warm, dry Respiratory: decreased breath sounds Heart: S1S2 Abdomen: soft, bowel sounds present Genitourinary: bladder flat Extremities: pulses present Neurology: alert, oriented Musculoskeletal: Osteoarthritis Assessment Assessment IMP ELISE-IMPROVING WITH CR DOWN TO 1.4 FROM 3.4 GENERALIZED EDEMA RECENT SEPSIS LYMPHOMA S/P CHEMO LOW K AND MAG PLAN ENC PO FLUIDS REPLACE K WILL SIGN OFF REENA ROJAS MD Dec 10, 2018 14:51
[2018-12-10] MEDS ORDERED: HEPARIN PF 500 UNIT/5 ML DISP.SYRIN. IV ONE (15:15)
--- NOTE | 2018-12-11 03:48 | CONS ---
DATE OF CONSULTATION: 12/10/2018 ATTENDING PHYSICIAN: Dr. Phillips. The patient was seen at the request of Dr. Velasquez for evaluation of her left elbow pain. HISTORY OF PRESENT ILLNESS: This is a 58-year-old female admitted on 12/03/2018 with complaints of diarrhea. She was diagnosed as having marginal zone lymphoma had gone through one round of chemotherapy, admitted with 2-day history of fever. She was discharged from the hospital about a week prior. The patient denied any nausea or vomiting or any chest pain, shortness of breath, abdominal pain, sore throat or headaches. Risk factor being on antibiotics recently that puts her on increased risk of C. diff colitis. She had bandemia on her differential. The patient with known atrial fibrillation, hypertension, carcinoma, hypothyroidism and status post cholecystectomy. FAMILY HISTORY: Hypertension. ALLERGIES: She is known allergic to PENICILLIN, SULFA, OXYCODONE and PREDNISONE. PAST MEDICAL HISTORY: The patient since admission was treated for neutropenic fever. Last chemotherapy being 11/16/2018. Anemia of chronic disease, septic shock, colitis as per CT scan, acute kidney injury. Nonsustained ventricular tachycardia, symptomatic onset 12/08/2018. The patient is being discharged to home. She complains of left elbow pain, she thinks it is from IV line. Doppler studies negative for any deep vein thrombosis. The patient denies any numbness in her extremities. X-ray of left elbow failed to reveal any acute abnormality. The patient lives with her family. PHYSICAL EXAMINATION: Today revealed a middle-aged female. She is alert, cooperative, in no acute distress. I have examined her while she is sitting in bedside chair. The patient had indurated area, lateral aspect of left distal arm and also some tenderness to palpation over posterior aspect of left shoulder. She is having pain while trying to flex her left upper extremity at elbow level and also trying to extend her left elbow and flex her left elbow. She had no tenderness to palpation over lateral or medial or posterior humeral epicondylar area or at olecranon bursa. She had no crepitus on range of motion of her shoulder or elbow. She had relative weakness of left elbow extension secondary to pain. The patient had equal perception of touch and pinprick sensation bilaterally. Deep tendon reflexes are 2+ in the upper extremities. Negative Tinel sign over median nerve at the wrist and ulnar nerve at the wrist and elbow and negative Phalen sign at both wrists. She is independent with her mobility and most of aspects of her self-care. Pain free range of motion of her cervical spine. She had minimal tenderness to palpation over left posterior shoulder girdle muscles. ASSESSMENT: Pain, left distal forearm where she had IV line with some induration of the tissues in that area with associated tendinitis, left shoulder and left posterior shoulder girdle muscle strain. No clinical evidence of cervical radiculopathy or tendinitis at the elbow. RECOMMENDATIONS: I have advised her in use of physical modalities and stretching exercises and proper use of her upper extremities in her day-to-day activities and also physical modalities and stretching exercise to her shoulder girdle muscles. She can be discharged to home as Tylenol is not helping ease the pain, at least give her some Tylenol with codeine for pain disturbing and she may benefit from anti-inflammatory medication if there are no contraindications. Dr. Velasquez, appreciate asking me to participate in the care of this interesting patient. I will be glad to follow her with you as needed for her rehabilitation, AMINA MARIN MD DR: IVONE/esme JOB#: [id number] / [id number] ISRAEL Coates MD [facility]ITAL[facility]
== END 2018-12-10 16:00 | disposition home or self-care (01) | DRG 871 ==
LOC: ER 23:15 → 1 WEST ICU 12-03 01:12 → 6 SOUTH 12-06 12:15
PROVIDERS: ADMIT Internal Medicine; ATTEND Internal Medicine
DX: A41.9 Sepsis, unspecified organism (principal); R65.21 Severe sepsis with septic shock; E43 Unspecified severe protein-calorie malnutrition; I21.4 Non-ST elevation (NSTEMI) myocardial infarction; K72.00 Acute and subacute hepatic failure without coma; R57.1 Hypovolemic shock; N17.0 Acute kidney failure with tubular necrosis; I47.2 Ventricular tachycardia; C85.90 Non-Hodgkin lymphoma, unspecified, unspecified site; D61.818 Other pancytopenia; D63.8 Anemia in other chronic diseases classified elsewhere; T45.1X5A Adverse effect of antineoplastic and immunosuppressive drugs, initial encounter; M79.89 Other specified soft tissue disorders; K52.9 Noninfective gastroenteritis and colitis, unspecified; M25.522 Pain in left elbow; E03.9 Hypothyroidism, unspecified; E66.01 Morbid (severe) obesity due to excess calories; M75.92 Shoulder lesion, unspecified, left shoulder; F32.9 Major depressive disorder, single episode, unspecified; F41.9 Anxiety disorder, unspecified; M19.90 Unspecified osteoarthritis, unspecified site; R16.1 Splenomegaly, not elsewhere classified; R21 Rash and other nonspecific skin eruption; H40.9 Unspecified glaucoma; I48.91 Unspecified atrial fibrillation; K21.9 Gastro-esophageal reflux disease without esophagitis; K76.0 Fatty (change of) liver, not elsewhere classified; Z90.710 Acquired absence of both cervix and uterus; Y92.89 Other specified places as the place of occurrence of the external cause; Z88.5 Allergy status to narcotic agent; Z88.0 Allergy status to penicillin; Z88.2 Allergy status to sulfonamides; Z88.8 Allergy status to other drugs, medicaments and biological substances; Z68.38 Body mass index [BMI] 38.0-38.9, adult; I25.2 Old myocardial infarction; Z90.49 Acquired absence of other specified parts of digestive tract; Z82.49 Family history of ischemic heart disease and other diseases of the circulatory system; I10 Essential (primary) hypertension
CPT/HCPCS: 36415; 71045; 71260; 73070; 74177; 74181; 76700; 80048; 80053; 80076; 81001; 82310; 82550; 83605; 83615; 83690; 83735; 84145; 84484; 85007; 85025; 85045; 85610; 86705; 86709; 86738; 86803; 87040; 87045; 87086; 87103; 87340; 87385; 87449; 87493; 87496; 87641; 87804; 87899; 93005; 93306; 93971; 94618; 96365; 96366; 96368; 96375; A4314; J0610; J0744; J0878; J1200; J1442; J1644; J1940; J2185; J2248; J2405; J3370; J3475; J3490; J7030; J7040; Q9967; 97116; 97535; 99291-25

== ENCOUNTER 2018-12-31 13:49 | Inpatient (IN) | payer BC ==
[~2018-12-31] VITALS: Ht 175.3 cm; Wt 110.4 kg
[2018-12-31] MEDS ORDERED: IV NORMAL SALINE 1000ML BAG 1,000 ML IV ONE ×2 (14:45→15:45)
[2018-12-31 15:22] LABS: BASO % 0 % (0-3); EOS % 1 % (0-3); HEMATOCRIT 29.6 % (36.0-47.0); LYMPH # 0.1 x10^3/uL (1.0-4.8); LYMPH % 3 % (24-48); MEAN CORPUSCULAR HEMOGLOBIN 29 pg (25-35); MEAN CORPUSCULAR HGB CONC 34 g/dL (31-37); MEAN CORPUSCULAR VOLUME 84 fL (79-100); MONO # 0.1 x10^3/uL (0.0-1.1); MONO % 5 % (0-9); NEUT # 1.7 x10^3uL (1.8-7.7); NEUT % 91 % (31-73); PLATELET COUNT 168 x10^3/uL (140-400); RED CELL DISTRIBUTION WIDTH 20.9 % (11.5-14.5)
[2018-12-31 15:30] LABS: ALBUMIN 3.4 g/dL (3.4-5.0); ALBUMIN/GLOBULIN RATIO 1.5 (1.0-1.7); CALCIUM 8.8 mg/dL (8.5-10.1); CREATININE 1.2 mg/dL (0.6-1.0); GFR 46.1; MAGNESIUM 1.2 mg/dL (1.8-2.4); TOTAL BILIRUBIN 1.7 mg/dL (0.2-1.0); TOTAL PROTEIN 5.6 g/dL (6.4-8.2); WHITE BLOOD COUNT 1.9 x10^3/uL (4.0-11.0)
[2018-12-31] MEDS ORDERED: ACETAMINOPHEN 500 MG TABLET PO ONE (15:30)
[2018-12-31 15:38] LABS: POTASSIUM 2.8 mmol/L (3.5-5.1)
[2018-12-31] MEDS ORDERED: CEFEPIME HCL IV Push 2 GM VIAL. IVP ONE (15:45)
[2018-12-31] MEDS ORDERED: POTASSIUM CHLORIDE 20 MEQ TABLET.ER. PO ONE (16:00)
[2018-12-31] MEDS ORDERED: MAGNESIUM SULFATE 2GM 50 ML IV ONE (16:00)
--- NOTE | 2018-12-31 16:01 | RAD ---
Single view of the chest. 12/31/2018 3:29 PM Indication: FEVER, LOW WHITE BLOOD CELL COUNT Comparison: Chest radiograph December 02, 2018 Findings: The port access needle seems to be eccentric. Correlate with function. There is no focal consolidation. There is no pleural effusion or pneumothorax. The cardiomediastinal silhouette and pulmonary vasculature are within normal limits. No acute osseous abnormalities are seen. Impression: 1.No evidence of acute cardiopulmonary process. 2. Eccentric appearance of port access needle. Correlate with function to ensure proper placement. Electronically signed by: Khai Torres MD (12/31/2018 3:58 PM) [facility]
--- NOTE | 2018-12-31 16:12 | PHYS DOC ---
Past Medical History Past Medical History: A-Fib, Cancer, Glaucoma, Hypothyroid Additional Past Medical Histor: A-FIB W RVR Past Surgical History: Hysterectomy, Other Additional Past Surgical Histo: SINUS SURGERY ,R FOOT, L WRIST, port insertion , bone marrow biopsy Alcohol Use: None Drug Use: None Adult General Chief Complaint Chief Complaint: FEVER HPI HPI Patient is a 58 year old female with a history of marginal cell lymphoma who presents with fever. Patient states that this morning she took her prescribed allopurinol and proceeded to have a reaction which involved itchy and red skin. She then decided to take some Benadryl to try to relieve this reaction. Shortly after the Benadryl the patient experiences some nausea, vomiting, and diarrhea. She denies any blood in her vomit or diarrhea. After her episode of pain diarrhea patient went to lay down in bed and got really cold. She then decided to check her temperature and found her temperature via 101.8. Patient then called her oncologist who recommended her to come to the emergency department. Patient denies any chest pain, shortness of breath, lightheadedness, cough, runny nose, pain with urination, or constipation. Review of Systems Review of Systems Constitutional: Reports fever or chills Eyes: Denies change in visual acuity, redness, or eye pain HENT: Denies nasal congestion or sore throat Respiratory: Denies cough or shortness of breath Cardiovascular: Denies chest pain or palpitations GI: Reports abdominal pain, nausea, vomiting, and diarrhea : Denies dysuria or hematuria Musculoskeletal: Denies back pain or joint pain Integument: Denies rash or skin lesions Neurologic: Denies headache or focal weakness Complete systems were reviewed and found to be within normal limits, except as documented in this note. Current Medications Current Medications Current Medications Medications (Trade) Dose Ordered Sig/Angeline Start Time Stop Time Status Last Admin Dose Admin Acetaminophen (Tylenol) 500 mg 1X ONCE 12/31/18 15:30 12/31/18 15:34 DC 12/31/18 15:53 500 MG Cefepime HCl (Maxipime) 2 gm 1X ONCE 12/31/18 15:45 12/31/18 15:46 DC Sodium Chloride 1,000 ml @ 1,000 mls/hr 1X ONCE 12/31/18 15:45 12/31/18 16:44 DC 12/31/18 15:54 1,000 MLS/HR Allergies Allergies Allergies Coded Allergies Type Severity Reaction Last Updated Verified Penicillins Allergy Severe DIFFICULTY BREATHING 05/07/18 Yes Sulfa (Sulfonamide Antibiotics) Allergy Intermediate 05/07/18 Yes oxycodone Allergy Intermediate Itching 05/07/18 Yes prednisone Allergy Intermediate 05/07/18 Yes Physical Exam Physical Exam Constitutional: No acute distress, non-toxic appearance. HENT: Normocephalic, atraumatic, moist mucous membranes Eyes: PERRLA, EOMI, conjunctiva normal, no discharge. Neck: Normal range of motion, no tenderness, supple, no stridor. Cardiovascular:Heart rate regular rhythm, no murmur Lungs & Thorax: Bilateral breath sounds clear to auscultation, no rhonchi rales or wheezes Abdomen: Bowel sounds normal, soft, right upper quadrant tenderness, non- peritoneal, no rebound rigidity or guarding. Skin: Warm, dry, diffuse erythema, no rash. Back: No tenderness, no CVA tenderness. Extremities: No cyanosis, no clubbing, ROM intact, no edema. Neurologic: Alert and oriented X 3, normal motor function, no focal deficits noted. Psychologic: Affect normal, mood normal. Current Patient Data Vital Signs Vital Signs Date Time Temp Pulse Resp B/P (MAP) Pulse Ox O2 Delivery O2 Flow Rate FiO2 12/31/18 14:23 101.8 130 16 143/63 (89) 97 Room Air 101.8 Lab Values Laboratory Tests Test 12/31/18 15:00 White Blood Count 1.9 x10^3/uL (4.0-11.0) *L Red Blood Count 3.50 x10^6/uL (3.50-5.40) Hemoglobin 10.0 g/dL (12.0-15.5) L Hematocrit 29.6 % (36.0-47.0) L Mean Corpuscular Volume 84 fL (79-100) Mean Corpuscular Hemoglobin 29 pg (25-35) Mean Corpuscular Hemoglobin Concent 34 g/dL (31-37) Red Cell Distribution Width 20.9 % (11.5-14.5) H Platelet Count 168 x10^3/uL (140-400) Neutrophils (%) (Auto) 91 % (31-73) H Lymphocytes (%) (Auto) 3 % (24-48) L Monocytes (%) (Auto) 5 % (0-9) Eosinophils (%) (Auto) 1 % (0-3) Basophils (%) (Auto) 0 % (0-3) Neutrophils # (Auto) 1.7 x10^3uL (1.8-7.7) L Lymphocytes # (Auto) 0.1 x10^3/uL (1.0-4.8) L Monocytes # (Auto) 0.1 x10^3/uL (0.0-1.1) Eosinophils # (Auto) 0.0 x10^3/uL (0.0-0.7) Basophils # (Auto) 0.0 x10^3/uL (0.0-0.2) Segmented Neutrophils % 45 % (35-66) Band Neutrophils % 48 % (0-9) H Lymphocytes % 3 % (24-48) L Monocytes % 3 % (0-10) Eosinophils % 1 % (0-5) Nucleated Red Blood Cells 1 Platelet Estimate Adequate (ADEQUATE) Polychromasia Slight Basophilic Stippling Present Anisocytosis Mod Ovalocytes Few Sodium Level 144 mmol/L (136-145) Potassium Level 2.8 mmol/L (3.5-5.1) *L Chloride Level 106 mmol/L (98-107) Carbon Dioxide Level 26 mmol/L (21-32) Anion Gap 12 (6-14) Blood Urea Nitrogen 17 mg/dL (7-20) Creatinine 1.2 mg/dL (0.6-1.0) H Estimated GFR (Cockcroft-Gault) 46.1 BUN/Creatinine Ratio 14 (6-20) Glucose Level 151 mg/dL (70-99) H Lactic Acid Level 1.8 mmol/L (0.4-2.0) Calcium Level 8.8 mg/dL (8.5-10.1) Magnesium Level 1.2 mg/dL (1.8-2.4) L Total Bilirubin 1.7 mg/dL (0.2-1.0) H Aspartate Amino Transferase (AST) 22 U/L (15-37) Alanine Aminotransferase (ALT) 25 U/L (14-59) Alkaline Phosphatase 140 U/L (46-116) H Total Protein 5.6 g/dL (6.4-8.2) L Albumin 3.4 g/dL (3.4-5.0) Albumin/Globulin Ratio 1.5 (1.0-1.7) Laboratory Tests 12/31/18 15:00 Laboratory Tests 12/31/18 15:00 EKG EKG [] Radiology/Procedures Radiology/Procedures PROCEDURE: PORTABLE CHEST 1V Single view of the chest. 12/31/2018 3:29 PM Indication: FEVER, LOW WHITE BLOOD CELL COUNT Comparison: Chest radiograph December 02, 2018 Findings: The port access needle seems to be eccentric. Correlate with function. There is no focal consolidation. There is no pleural effusion or pneumothorax. The cardiomediastinal silhouette and pulmonary vasculature are within normal limits. No acute osseous abnormalities are seen. Impression: 1.No evidence of acute cardiopulmonary process. 2. Eccentric appearance of port access needle. Correlate with function to ensure proper placement. Electronically signed by: Khai Andrews MD (12/31/2018 3:58 PM) [facility] DICTATED and SIGNED BY: KHAI ANDREWS MD[] Course & Med Decision Making Course & Med Decision Making 58-year-old female sent to the emergency department after having a reaction to allopurinol and was febrile. 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 Labs and imaging were obtained. Potassium and magnesium replaced. Patient started on cefepime. Total white count and neutrophils were low. Neutropenic precautions initiated. Patient requiring admission for further evaluation and treatment. Discussed with Dr. Oh who is in agreement with admission. Discussed findings and plan with patient and family, who acknowledge understanding and agreement. [] Dragon Disclaimer Dragon Disclaimer This electronic medical record was generated, in whole or in part, using a voice recognition dictation system. Departure Departure Impression: Primary Impression: Neutropenic fever Additional Impressions: SIRS (systemic inflammatory response syndrome) Hypokalemia Hypomagnesemia Leukopenia Disposition: ADMITTED INPATIENT Admitting Physician: Other (Dr. Oh) Condition: GUARDED Referrals: ISRAEL QUIÑONES MD (PCP) Problem Qualifiers Additional Impressions: Leukopenia Leukopenia type: unspecified Qualified Codes: D72.819 - Decreased white blood cell count, unspecified SILVIO AGUILAR DO Dec 31, 2018 16:12
[2018-12-31 17:13] LABS: % BANDS 48 % (0-9); % EOS 1 % (0-5); % LYMPHS 3 % (24-48); % MONOS 3 % (0-10); % SEGS 45 % (35-66); NUCLEATED RBC 1
[2018-12-31 17:14] LABS: ANISOCYTOSIS MOD; OVALOCYTES FEW; PLT ESTIMATE ADEQUATE (ADEQUATE); POLYCHROMASIA SLIGHT
[2018-12-31 19:00] VITALS: BP 108/45
[2018-12-31] MEDS: ACETAMINOPHEN 325 MG TABLET. PO PRN (22:26)
[2018-12-31 22:31] VITALS: BP 129/51
--- NOTE | 2018-12-31 22:45 | NUR ---
Pt triggered Sepsis in ER, fluids and antibiotics given, blood cultures drawn. ID consulted and ICU charge made aware. Pt is currently stable and comfortable, this nurse will continue to monitor.
[2018-12-31] MEDS ORDERED: diphenhydrAMINE HCL 25 MG CAPSULE PO ONE (23:15)
[2019-01-01] VITALS (7 sets, daily range): BP systolic 90–121; BP diastolic 35–54
[2019-01-01] MEDS: ACETAMINOPHEN 325 MG TABLET. PO PRN (05:42)
[2019-01-01] MEDS ORDERED: METOPROLOL TART IMMED RELEASE 25 MG TABLET. PO SCH (09:00)
[2019-01-01 10:27] LABS: ALBUMIN 2.4 g/dL (3.4-5.0); ALBUMIN/GLOBULIN RATIO 1.1 (1.0-1.7); CALCIUM 7.7 mg/dL (8.5-10.1); CREATININE 1.8 mg/dL (0.6-1.0); GFR 28.9; POTASSIUM 3.3 mmol/L (3.5-5.1); TOTAL BILIRUBIN 1.3 mg/dL (0.2-1.0); TOTAL PROTEIN 4.5 g/dL (6.4-8.2)
--- NOTE | 2019-01-01 10:42 | PDOC2 ---
ABDIAS GONGORA ESCALATOR CONSTRUCTOR 01/01/19 1042: CARDIAC CONSULT DATE OF CONSULT Date of Consult DATE: 01/01/19 TIME: 10:32 REASON FOR CONSULT Reason for Consult: 24-beat run of VTACH REFERRING PHYSICIAN Referring Physician: Dr. Oh SOURCE Source: Chart review, Patient HISTORY OF PRESENT ILLNESS HISTORY OF PRESENT ILLNESS This is a 58 yo female, with a history of fairly newly diagnosed marginal cell lymphoma and began chemotherapy last month, who presented secondary to fevers, rash, and nausea/vomiting. Patient reports that she took allopurinol yesterday and broke out in an itchy rash. Took Benadryl. Then developed nausea/vomiting and had some diarrhea. Laid down for a nap and felt flush. Took temp and was 101.8. Called provider who recommend she come to the ED for further evaluation and treatment. Has a history of PAFIB. Is on metoprolol for rate control, but this has been held due to hypotension. Arrhythmia noted on tele this morning, which prompted this consult. Denies any chest pain, dizziness, diaphoresis, SOA. Report occasional palpitations and feels fatigued. PAST MEDICAL HISTORY Cardiovascular: AFIB, HTN Pulmonary: Pneumonia CENTRAL NERVOUS SYSTEM: Other (no pertinent hx) GI: Other (pancreatitis ) Heme/Onc: Other (marginal cell lymphoma) Hepatobiliary: No pertinent hx Psych: Anxiety, Depression Musculoskeletal: Osteoarthritis Infectious disease: No pertinent hx ENT: No pertinent hx Renal/: No pertinent hx Endocrine: Hypothyroidism Dermatology: No pertinent hx PAST SURGICAL HISTORY Past Surgical History: Hysterectomy SOCIAL HISTORY Smoke: No ALCOHOL: none Drugs: None Lives: with Family CURRENT MEDICATIONS CURRENT MEDICATIONS Current Medications Medications (Trade) Dose Ordered Sig/Angeline Route PRN Reason Start Time Stop Time Status Last Admin Dose Admin Sodium Chloride 1,000 ml @ 1,000 mls/hr 1X ONCE IV 12/31/18 14:45 12/31/18 15:44 DC 12/31/18 15:54 Acetaminophen (Tylenol) 500 mg 1X ONCE PO 12/31/18 15:30 12/31/18 15:34 DC 12/31/18 15:53 Sodium Chloride 1,000 ml @ 1,000 mls/hr 1X ONCE IV 12/31/18 15:45 12/31/18 16:44 DC 12/31/18 15:54 Cefepime HCl (Maxipime) 2 gm 1X ONCE IVP 12/31/18 15:45 12/31/18 15:46 DC 12/31/18 17:58 Potassium Chloride (Klor-Con) 40 meq 1X ONCE PO 12/31/18 16:00 12/31/18 16:01 DC 12/31/18 17:06 Magnesium Sulfate 50 ml @ 25 mls/hr 1X ONCE IV 12/31/18 16:00 12/31/18 17:59 DC 12/31/18 17:07 Acetaminophen (Tylenol) 650 mg PRN Q4HRS PRN PO FEVER 12/31/18 16:00 01/01/19 15:59 01/01/19 05:42 Diphenhydramine HCl (Benadryl) 25 mg 1X ONCE PO 12/31/18 23:15 12/31/18 23:16 DC 01/01/19 00:22 ALLERGIES ALLERGIES: Coded Allergies: Penicillins (Verified Allergy, Severe, DIFFICULTY BREATHING, 05/07/18) Sulfa (Sulfonamide Antibiotics) (Verified Allergy, Intermediate, 05/07/18) oxycodone (Verified Allergy, Intermediate, Itching, 05/07/18) prednisone (Verified Allergy, Intermediate, 05/07/18) HARD TO BREATHE ROS Review of System 14 point ROS conducted with pertinent positives noted above in HPI. PHYSICAL EXAM General: Alert, Oriented X3, Cooperative, No acute distress, Other (appears fatigued) HEENT: Atraumatic, Mucous membr. moist/pink Lungs: Clear to auscultation Heart: Regular rate, Normal S1, Normal S2 Abdomen: Soft, No tenderness Skin: Other (anasarca, diffuse erythema) Neuro: Normal speech, Sensation intact Psych/Mental Status: Mental status NL, Mood NL MUSCULOSKELETAL: Osteoarthritic changes both hands VITALS VITALS Vital Signs Date Time Temp Pulse Resp B/P (MAP) Pulse Ox O2 Delivery O2 Flow Rate FiO2 01/01/19 09:00 114 90/36 01/01/19 08:00 Room Air 01/01/19 07:00 98.1 16 97 98.1 LABS Lab: Laboratory Tests Test 12/31/18 15:00 01/01/19 09:50 White Blood Count 1.9 x10^3/uL (4.0-11.0) Red Blood Count 3.50 x10^6/uL (3.50-5.40) Hemoglobin 10.0 g/dL (12.0-15.5) Hematocrit 29.6 % (36.0-47.0) Mean Corpuscular Volume 84 fL (79-100) Mean Corpuscular Hemoglobin 29 pg (25-35) Mean Corpuscular Hemoglobin Concent 34 g/dL (31-37) Red Cell Distribution Width 20.9 % (11.5-14.5) Platelet Count 168 x10^3/uL (140-400) Neutrophils (%) (Auto) 91 % (31-73) Lymphocytes (%) (Auto) 3 % (24-48) Monocytes (%) (Auto) 5 % (0-9) Eosinophils (%) (Auto) 1 % (0-3) Basophils (%) (Auto) 0 % (0-3) Neutrophils # (Auto) 1.7 x10^3uL (1.8-7.7) Lymphocytes # (Auto) 0.1 x10^3/uL (1.0-4.8) Monocytes # (Auto) 0.1 x10^3/uL (0.0-1.1) Eosinophils # (Auto) 0.0 x10^3/uL (0.0-0.7) Basophils # (Auto) 0.0 x10^3/uL (0.0-0.2) Segmented Neutrophils % 45 % (35-66) Band Neutrophils % 48 % (0-9) Lymphocytes % 3 % (24-48) Monocytes % 3 % (0-10) Eosinophils % 1 % (0-5) Nucleated Red Blood Cells 1 Platelet Estimate Adequate (ADEQUATE) Polychromasia Slight Basophilic Stippling Present Anisocytosis Mod Ovalocytes Few Sodium Level 144 mmol/L (136-145) 140 mmol/L (136-145) Potassium Level 2.8 mmol/L (3.5-5.1) 3.3 mmol/L (3.5-5.1) Chloride Level 106 mmol/L (98-107) 106 mmol/L (98-107) Carbon Dioxide Level 26 mmol/L (21-32) 24 mmol/L (21-32) Anion Gap 12 (6-14) 10 (6-14) Blood Urea Nitrogen 17 mg/dL (7-20) 32 mg/dL (7-20) Creatinine 1.2 mg/dL (0.6-1.0) 1.8 mg/dL (0.6-1.0) Estimated GFR (Cockcroft-Gault) 46.1 28.9 BUN/Creatinine Ratio 14 (6-20) 18 (6-20) Glucose Level 151 mg/dL (70-99) 106 mg/dL (70-99) Lactic Acid Level 1.8 mmol/L (0.4-2.0) Calcium Level 8.8 mg/dL (8.5-10.1) 7.7 mg/dL (8.5-10.1) Magnesium Level 1.2 mg/dL (1.8-2.4) Total Bilirubin 1.7 mg/dL (0.2-1.0) 1.3 mg/dL (0.2-1.0) Aspartate Amino Transf (AST/SGOT) 22 U/L (15-37) 23 U/L (15-37) Alanine Aminotransferase (ALT/SGPT) 25 U/L (14-59) 27 U/L (14-59) Alkaline Phosphatase 140 U/L (46-116) 100 U/L (46-116) Total Protein 5.6 g/dL (6.4-8.2) 4.5 g/dL (6.4-8.2) Albumin 3.4 g/dL (3.4-5.0) 2.4 g/dL (3.4-5.0) Albumin/Globulin Ratio 1.5 (1.0-1.7) 1.1 (1.0-1.7) ECHOCARDIOGRAM ECHOCARDIOGRAM <Conclusion> The left ventricle is normal size. The left ventricular systolic function is normal and the ejection fraction is within normal range. The Ejection Fraction is 60-65%. There is mild concentric left ventricular hypertrophy. Doppler and Color Flow revealed no significant aortic regurgitation. There is no significant aortic valvular stenosis. Doppler and Color-flow revealed mild mitral regurgitation. Doppler and Color Flow revealed trace tricuspid valve regurgitation noted. DATE: 12/03/18 4785 ASSESSMENT/PLAN ASSESSMENT/PLAN 1. Marginal cell lymphoma 2. Neutropenia 3. Febrile 4. Tachyarrhythmia; tele event reviewed. Suspect burst of SVT. Recent echo with preserved LV systolic function as noted above. 5. PAFIB; maintaining ST 6. Anemia 7. Hypomagnesemia 8. Hypokalemia 9. ELISE Recommendation Recheck Mg-replace as warranted Keep Mg >2.0 and K > 4.0 Metoprolol as BP allows. Convert to short-acting for now while BP low Use Dig IV PRN for tachycardia ASA for stroke prevention Supportive care BRISEIDA LEROY MD 01/01/19 1736: CARDIAC CONSULT ASSESSMENT/PLAN ASSESSMENT/PLAN Pt. seen and examined. Agree with above OUTBOARD SYSTEM OPERATOR note. Supportive care. ABDIAS GONGORA APRN Jan 01, 2019 10:42 BRISEIDA LEROY MD Jan 01, 2019 17:36
--- NOTE | 2019-01-01 11:23 | PDOC1 ---
History and Physical Date of Admission Date of Admission DATE: 01/01/19 TIME: 11:23 Identification/Chief Complaint Chief Complaint seen in er, history of marginal cell lymphoma who presents with fever. Patient states that this morning she took her prescribed allopurinol and proceeded to have a reaction which involved itchy and red skin. She then decided to take some Benadryl to try to relieve this reaction. Shortly after the Benadryl the patient experiences some nausea, vomiting, and diarrhea. She denies any blood in her vomit or diarrhea. After her episode of pain diarrhea patient went to lay down in bed and got really cold. She then decided to check her temperature and found her temperature via 101.8. Patient then called her oncologist who recommended her to come to the emergency department . admitted with concern for sepsis Past Medical History Past Medical History Past Medical History Past Medical History Past Medical History: A-Fib, Cancer, Glaucoma, Hypothyroid Additional Past Medical Histor: A-FIB W RVR Past Surgical History: Hysterectomy, Other Additional Past Surgical Histo: SINUS SURGERY ,R FOOT, L WRIST, port insertion , bone marrow biopsy Alcohol Use: None Drug Use: None FAMILY HX OBESITY Cardiovascular: AFIB, HTN Pulmonary: Pneumonia GI: Other (pancreatitis ) Heme/Onc: Other (lymphoma ) Psych: Anxiety, Depression Musculoskeletal: Osteoarthritis Endocrine: Hypothyroidism Past Surgical History Past Surgical History: Hysterectomy Family History Family History: Hypertension Social History Smoke: No ALCOHOL: none Drugs: None Current Problem List Problem List Problems Medical Problems: (1) Hypokalemia Status: Acute (2) Hypomagnesemia Status: Acute (3) Leukopenia Status: Acute (4) Neutropenic fever Status: Acute (5) SIRS (systemic inflammatory response syndrome) Status: Acute Current Medications Current Medications Current Medications Sodium Chloride 1,000 ml @ 1,000 mls/hr 1X ONCE IV Last administered on at 15:54; Start 12/31/18 at 14:45; Stop 12/31/18 at 15:44; Status DC Acetaminophen (Tylenol) 500 mg 1X ONCE PO Last administered on 12/31/18at 15:53 ; Start 12/31/18 at 15:30; Stop 12/31/18 at 15:34; Status DC Sodium Chloride 1,000 ml @ 1,000 mls/hr 1X ONCE IV Last administered on at 15:54; Start 12/31/18 at 15:45; Stop 12/31/18 at 16:44; Status DC Cefepime HCl (Maxipime) 2 gm 1X ONCE IVP Last administered on 12/31/18at 17:58 ; Start 12/31/18 at 15:45; Stop 12/31/18 at 15:46; Status DC Potassium Chloride (Klor-Con) 40 meq 1X ONCE PO Last administered on at 17:06; Start 12/31/18 at 16:00; Stop 12/31/18 at 16:01; Status DC Magnesium Sulfate 50 ml @ 25 mls/hr 1X ONCE IV Last administered on 12/31/18at 17:07; Start 12/31/18 at 16:00; Stop 12/31/18 at 17:59; Status DC Acetaminophen (Tylenol) 650 mg PRN Q4HRS PRN PO FEVER Last administered on 01/01at 05:42; Start 12/31/18 at 16:00; Stop 01/01/19 at 15:59 Diphenhydramine HCl (Benadryl) 25 mg 1X ONCE PO Last administered on at 00:22; Start 12/31/18 at 23:15; Stop 12/31/18 at 23:16; Status DC Metoprolol Tartrate (Lopressor) 25 mg DAILY PO ; Start 01/01/19 at 09:00 Active Scripts Active Reported Biotin 10,000 Mcg Capsule 10,000 Mcg PO DAILY Multivitamins (Multivitamin) 1 Each Tablet 1 Each PO DAILY Metoprolol Tartrate 25 Mg Tablet 25 Mg PO DAILY Cymbalta (Duloxetine Hcl) 30 Mg Capsule. 1 Cap PO DAILY Aspirin 81 Mg Tab.chew 1 Tab PO DAILY Synthroid (Levothyroxine Sodium) 88 Mcg Tablet 100 Mcg PO DAILY Latanoprost 2.5 Ml Drops 1 Drop EACHEYE QHS Allergies Allergies: Coded Allergies: Penicillins (Verified Allergy, Severe, DIFFICULTY BREATHING, 05/07/18) Sulfa (Sulfonamide Antibiotics) (Verified Allergy, Intermediate, 05/07/18) oxycodone (Verified Allergy, Intermediate, Itching, 05/07/18) prednisone (Verified Allergy, Intermediate, 05/07/18) HARD TO BREATHE ROS Review of System Review of Systems Review of Systems Constitutional: Reports fever // chills Eyes: Denies change in visual acuity, redness, or eye pain HENT: Denies nasal congestion or sore throat Respiratory: Denies cough or shortness of breath Cardiovascular: Denies chest pain or palpitations GI: Reports abdominal pain, nausea, vomiting, and diarrhea : Denies dysuria or hematuria Musculoskeletal: Denies back pain or joint pain Integument: Denies rash or skin lesions Neurologic: Denies headache or focal weakness 14 pt systems were reviewed and found to be within normal limits, except as documented Eyes: No Blurry vision, No Decreased vision, No Double vision, No Dry eyes, No Excessive tearing, No Eye Pain, No Itchy Eyes, No Loss of vision, No Photophobia , No Scotomata, No Uses contacts, No Uses glasses, No Other Respiratory: No: Cough, Hemoptysis, Orthopnea, Pleuritic Pain, Shortness of breath, SOB with excertion, Sputum Changes, Stridor, Tachypnea, Wheezing, Other Physical Exam Physical Exam Physical Exam Physical Exam Constitutional: mild distress, non-toxic appearance. feels warm HENT: Normocephalic, atraumatic, moist mucous membranes Eyes: PERRLA, EOMI, conjunctiva normal, no discharge. Neck: Normal range of motion, no tenderness, supple, no stridor. Cardiovascular:Heart rate regular rhythm, no murmur Lungs & Thorax: Bilateral breath sounds clear to auscultation, no rhonchi rales or wheezes Abdomen: Bowel sounds normal, soft, right upper quadrant tenderness, non- peritoneal, no rebound rigidity or guarding. Skin: Warm, dry, diffuse erythema, no rash. Back: No tenderness, no CVA tenderness. Extremities: No cyanosis, no clubbing, ROM intact, no edema. Neurologic: Alert and oriented X 3, normal motor function, no focal deficits noted. Psychologic: Affect normal, mood normal. General: Alert, Oriented X3, Cooperative, mild distress HEENT: Atraumatic, EOMI, Mucous membr. moist/pink Heart: RRR Breasts: Not examined Abdomen: Normal bowel sounds, Soft Rectal Exam: not examined PELVIC: Examination not indicated Extremities: No cyanosis Neuro: Normal speech, Cranial nerves 3-12 NL Psych/Mental Status: Mental status NL, Mood NL Vitals Vitals Vital Signs Date Time Temp Pulse Resp B/P (MAP) Pulse Ox O2 Delivery O2 Flow Rate FiO2 01/01/19 11:00 98.1 108 16 93/39 (57) 98 Room Air 98.1 Labs Labs Laboratory Tests Test 12/31/18 15:00 01/01/19 09:50 White Blood Count 1.9 x10^3/uL (4.0-11.0) Red Blood Count 3.50 x10^6/uL (3.50-5.40) Hemoglobin 10.0 g/dL (12.0-15.5) Hematocrit 29.6 % (36.0-47.0) Mean Corpuscular Volume 84 fL (79-100) Mean Corpuscular Hemoglobin 29 pg (25-35) Mean Corpuscular Hemoglobin Concent 34 g/dL (31-37) Red Cell Distribution Width 20.9 % (11.5-14.5) Platelet Count 168 x10^3/uL (140-400) Neutrophils (%) (Auto) 91 % (31-73) Lymphocytes (%) (Auto) 3 % (24-48) Monocytes (%) (Auto) 5 % (0-9) Eosinophils (%) (Auto) 1 % (0-3) Basophils (%) (Auto) 0 % (0-3) Neutrophils # (Auto) 1.7 x10^3uL (1.8-7.7) Lymphocytes # (Auto) 0.1 x10^3/uL (1.0-4.8) Monocytes # (Auto) 0.1 x10^3/uL (0.0-1.1) Eosinophils # (Auto) 0.0 x10^3/uL (0.0-0.7) Basophils # (Auto) 0.0 x10^3/uL (0.0-0.2) Segmented Neutrophils % 45 % (35-66) Band Neutrophils % 48 % (0-9) Lymphocytes % 3 % (24-48) Monocytes % 3 % (0-10) Eosinophils % 1 % (0-5) Nucleated Red Blood Cells 1 Platelet Estimate Adequate (ADEQUATE) Polychromasia Slight Basophilic Stippling Present Anisocytosis Mod Ovalocytes Few Sodium Level 144 mmol/L (136-145) 140 mmol/L (136-145) Potassium Level 2.8 mmol/L (3.5-5.1) 3.3 mmol/L (3.5-5.1) Chloride Level 106 mmol/L (98-107) 106 mmol/L (98-107) Carbon Dioxide Level 26 mmol/L (21-32) 24 mmol/L (21-32) Anion Gap 12 (6-14) 10 (6-14) Blood Urea Nitrogen 17 mg/dL (7-20) 32 mg/dL (7-20) Creatinine 1.2 mg/dL (0.6-1.0) 1.8 mg/dL (0.6-1.0) Estimated GFR (Cockcroft-Gault) 46.1 28.9 BUN/Creatinine Ratio 14 (6-20) 18 (6-20) Glucose Level 151 mg/dL (70-99) 106 mg/dL (70-99) Lactic Acid Level 1.8 mmol/L (0.4-2.0) Calcium Level 8.8 mg/dL (8.5-10.1) 7.7 mg/dL (8.5-10.1) Magnesium Level 1.2 mg/dL (1.8-2.4) Total Bilirubin 1.7 mg/dL (0.2-1.0) 1.3 mg/dL (0.2-1.0) Aspartate Amino Transf (AST/SGOT) 22 U/L (15-37) 23 U/L (15-37) Alanine Aminotransferase (ALT/SGPT) 25 U/L (14-59) 27 U/L (14-59) Alkaline Phosphatase 140 U/L (46-116) 100 U/L (46-116) Total Protein 5.6 g/dL (6.4-8.2) 4.5 g/dL (6.4-8.2) Albumin 3.4 g/dL (3.4-5.0) 2.4 g/dL (3.4-5.0) Albumin/Globulin Ratio 1.5 (1.0-1.7) 1.1 (1.0-1.7) Laboratory Tests Test 12/31/18 15:00 01/01/19 09:50 White Blood Count 1.9 x10^3/uL (4.0-11.0) Red Blood Count 3.50 x10^6/uL (3.50-5.40) Hemoglobin 10.0 g/dL (12.0-15.5) Hematocrit 29.6 % (36.0-47.0) Mean Corpuscular Volume 84 fL (79-100) Mean Corpuscular Hemoglobin 29 pg (25-35) Mean Corpuscular Hemoglobin Concent 34 g/dL (31-37) Red Cell Distribution Width 20.9 % (11.5-14.5) Platelet Count 168 x10^3/uL (140-400) Neutrophils (%) (Auto) 91 % (31-73) Lymphocytes (%) (Auto) 3 % (24-48) Monocytes (%) (Auto) 5 % (0-9) Eosinophils (%) (Auto) 1 % (0-3) Basophils (%) (Auto) 0 % (0-3) Neutrophils # (Auto) 1.7 x10^3uL (1.8-7.7) Lymphocytes # (Auto) 0.1 x10^3/uL (1.0-4.8) Monocytes # (Auto) 0.1 x10^3/uL (0.0-1.1) Eosinophils # (Auto) 0.0 x10^3/uL (0.0-0.7) Basophils # (Auto) 0.0 x10^3/uL (0.0-0.2) Segmented Neutrophils % 45 % (35-66) Band Neutrophils % 48 % (0-9) Lymphocytes % 3 % (24-48) Monocytes % 3 % (0-10) Eosinophils % 1 % (0-5) Nucleated Red Blood Cells 1 Platelet Estimate Adequate (ADEQUATE) Polychromasia Slight Basophilic Stippling Present Anisocytosis Mod Ovalocytes Few Sodium Level 144 mmol/L (136-145) 140 mmol/L (136-145) Potassium Level 2.8 mmol/L (3.5-5.1) 3.3 mmol/L (3.5-5.1) Chloride Level 106 mmol/L (98-107) 106 mmol/L (98-107) Carbon Dioxide Level 26 mmol/L (21-32) 24 mmol/L (21-32) Anion Gap 12 (6-14) 10 (6-14) Blood Urea Nitrogen 17 mg/dL (7-20) 32 mg/dL (7-20) Creatinine 1.2 mg/dL (0.6-1.0) 1.8 mg/dL (0.6-1.0) Estimated GFR (Cockcroft-Gault) 46.1 28.9 BUN/Creatinine Ratio 14 (6-20) 18 (6-20) Glucose Level 151 mg/dL (70-99) 106 mg/dL (70-99) Lactic Acid Level 1.8 mmol/L (0.4-2.0) Calcium Level 8.8 mg/dL (8.5-10.1) 7.7 mg/dL (8.5-10.1) Magnesium Level 1.2 mg/dL (1.8-2.4) Total Bilirubin 1.7 mg/dL (0.2-1.0) 1.3 mg/dL (0.2-1.0) Aspartate Amino Transf (AST/SGOT) 22 U/L (15-37) 23 U/L (15-37) Alanine Aminotransferase (ALT/SGPT) 25 U/L (14-59) 27 U/L (14-59) Alkaline Phosphatase 140 U/L (46-116) 100 U/L (46-116) Total Protein 5.6 g/dL (6.4-8.2) 4.5 g/dL (6.4-8.2) Albumin 3.4 g/dL (3.4-5.0) 2.4 g/dL (3.4-5.0) Albumin/Globulin Ratio 1.5 (1.0-1.7) 1.1 (1.0-1.7) Images Images Aortic Valve AoV Peak Ari. 238.6cm/s AoV VTI 24.5cm AO Peak GR. 22.8mmHg LVOT VTI 26.71cm AO Mean GR. 15mmHg NATALIIA (VTI) 3.30cm2 Mitral Valve MV E Velocity 80.0cm/s MV DECEL TIME 95ms MV A Velocity 93.7cm/s E/A Ratio 0.9 TDI Lateral E' P. V 6.24cm/s Medial E' P. V 6.82cm/s E/Lateral E' 12.8 E/Medial E' 11.7 Pulmonary Vein S1 Velocity 77.8cm/s S2 Velocity 37.76cm/s D2 Velocity 37.8cm/s LEFT VENTRICLE The left ventricle is normal size. There is mild concentric left ventricular hypertrophy. The left ventricular systolic function is normal and the ejection fraction is within normal range. The Ejection Fraction is 60-65%. There is normal LV segmental wall motion. Transmitral Doppler flow pattern is Grade I- abnormal relaxation pattern. RIGHT VENTRICLE The right ventricle is normal size. The right ventricular systolic function is normal. ATRIA The left atrium size is normal. The right atrium size is normal. AORTIC VALVE The aortic valve is normal in structure and function. Doppler and Color Flow revealed no significant aortic regurgitation. There is no significant aortic valvular stenosis. MITRAL VALVE The mitral valve is calcified but opens well. Mitral annular calcification is mild. There is no evidence of mitral valve prolapse. There is no mitral valve stenosis. Doppler and Color-flow revealed mild mitral regurgitation. TRICUSPID VALVE The tricuspid valve is normal in structure and function. Doppler and Color Flow revealed trace tricuspid valve regurgitation noted. There is no tricuspid valve stenosis. PULMONIC VALVE The pulmonic valve is not well visualized. Doppler and Color Flow revealed no pulmonic valvular regurgitation. There is no pulmonic valvular stenosis. GREAT VESSELS The aortic root is normal in size. The ascending aorta is normal in size. The IVC is normal in size and collapses >50% with inspiration. PERICARDIAL EFFUSION There is no evidence of significant pericardial effusion. Critical Notification Critical Value: No <Conclusion> The left ventricle is normal size. The left ventricular systolic function is normal and the ejection fraction is within normal range. The Ejection Fraction is 60-65%. There is mild concentric left ventricular hypertrophy. Doppler and Color Flow revealed no significant aortic regurgitation. There is no significant aortic valvular stenosis. Doppler and Color-flow revealed mild mitral regurgitation. Doppler and Color Flow revealed trace tricuspid valve regurgitation noted. Signed by : Ryan Lara MD Electronically Approved : 12/03/2018 16:35:40 DICTATED and SIGNED BY: RYAN LARA MD DATE: 12/03/18 1635 VTE Prophylaxis Ordered VTE Prophylaxis Devices: No VTE Pharmacological Prophylaxi: Yes Assessment/Plan Assessment/Plan IMPRESSION Marginal zone lymphoma on chemotherapy Neutropenic fever, hypothyroid state on replacement Anemia of chronic disease Diarrhea 1 episode RECENT Colitis on CAT scan INDWelling right-sided Port-A-Cath for chemotherapy NOn Sustained V. tach, asymptomatic, 12/08/18 and today The Ejection Fraction is 60-65%. There is mild concentric left ventricular hypertrophy. Doppler and Color Flow revealed no significant aortic regurgitation.recent echo plan blood and urine cultures ID CONSULT CARDIOLOGY CONSULT ONCOLOGY CONSULT HOME MEDS tele dvt prophylaxis 57 MIN PT EXAM, CHART REVIEW, > 50% of time spent with exam, chart review, pt care coordination, at high risk of sepsis per my chart review BRIAN DARLING MD Jan 01, 2019 11:23
[2019-01-01] MEDS ORDERED: CEFEPIME HCL IV Push 1 GM VIAL. IVP SCH ×2 (12:30)
--- NOTE | 2019-01-01 12:35 | PDOC ---
Provider Note Provider Note Pt seen and examined ID consult dictated Thank you JOIE CARMONA MD Jan 01, 2019 12:35
[2019-01-01] MEDS ORDERED: MAGNESIUM SULFATE 2GM 50 ML IV ONE (13:15)
[2019-01-01] MEDS ORDERED: POTASSIUM CHLORIDE 20 MEQ TABLET.ER. PO ONE (15:00)
[2019-01-01] MEDS: ENOXAPARIN 40 MG/0.4 ML SYRINGE. SQ SCH (16:01)
[2019-01-01] MEDS: CEFEPIME HCL IV Push 1 GM VIAL. IVP SCH (20:40)
[2019-01-01] MEDS: LATANOPROST 0.005% OPHTH SOLUTION 2.5ML BOTTLE. OU SCH (21:00)
[2019-01-01] MEDS: METOPROLOL TART IMMED RELEASE 25 MG TABLET. PO SCH (21:00)
[2019-01-02 03:00] VITALS: BP 119/54
--- NOTE | 2019-01-02 04:51 | CONS ---
DATE OF CONSULTATION: 01/01/2019 REFERRING PHYSICIAN: Dr. Whitman. REASON FOR CONSULTATION: Antibiotic management. HISTORY OF PRESENT ILLNESS: A 58-year-old female with history of recently diagnosed lymphoma, on chemotherapy, presented to the ED on 12/31/2018 with fever. The patient was doing well in the morning in her normal health after recent discharge 2 weeks ago, took her prescribed allopurinol and then proceeded to have a reaction which involved red skin itchiness. She decided to take some Benadryl, but after that she started having nausea, vomiting, diarrhea. Upon arrival at the ER, her temperature was 101.8. She also had some sensation of cold. Denies any chest pain, shortness of breath, lightheadedness, cough, runny nose, headache, visual disturbances. No abdominal pain with urination, dysuria, hematuria, or constipation. Denies any sick contact. The patient denies being on any antibiotics since last admission. No problems with her Port-A-Cath. Patient was started on cefepime 1 dose, which she received in ER. Currently, is not on any antibiotics. This morning, she is afebrile. Says nausea, vomiting, diarrhea has resolved. Rash is getting better. Redness, swelling over the eyes, face, upper extremities, lower extremities, improving. As per at bedside, it was meat red in color, now almost back to her normal color. REVIEW OF SYSTEMS: Negative except for above in HPI. PAST MEDICAL HISTORY: Lymphoma, on chemotherapy, hypothyroidism, atrial fibrillation, hypertension, coronary artery disease. PAST SURGICAL HISTORY: Cholecystectomy, foot surgery, wrist surgery and hysterectomy. SOCIAL HISTORY: Denies smoking, ETOH, or illicit drug use. 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 ALLERGIES: PENICILLIN CAUSING BODY SWELLING WELL SHORTNESS OF BREATH. She has tolerated sulfa well, sulfa causing rash. CURRENT MEDICATION: No antibiotics, IV cefepime 1 dose 12/31/2018. REVIEW OF SYSTEMS: Negative except for above in HPI. The patient denies any recent sick contact, travel history, immunization, outdoor activities. PHYSICAL EXAMINATION: VITAL SIGNS: Temperature of 98.1, T-max 101.8, pulse 108, respiratory rate 16, blood pressure was 93/39, oxygen saturation 98% on room air. HEENT: Normocephalic, atraumatic, anicteric, lid edema bilateral improving, redness improving. No sinus tenderness, no oral lesions, no thrush. Oropharynx clear. NECK: Supple, no JVD, no lymphadenopathy. LUNGS: Clear bilaterally. No wheezing. CARDIOVASCULAR: S1, S2. No murmurs or rubs. ABDOMEN: Soft, nontender, obese, benign. EXTREMITIES: No edema or cyanosis. DERM: Dry scaly skin bilateral upper extremity and lower extremity. Face, very faint maculopapular rash on the face, upper extremity and lower extremity fading. No skin breakdown. CENTRAL NERVOUS SYSTEM: Alert and oriented. NEUROLOGIC: Grossly nonfocal. Port-A-Cath without signs of complications. PSYCHIATRIC: Cooperative, appropriate mood and affect. LABORATORY DATA: WBC 1.9, hemoglobin 10.0, hematocrit 29.6, platelets 168, neutrophils 91, lymphocytes 3, monocytes 5, eosinophils 1. Sodium 134, potassium 2.8, chloride 106, bicarbonate 26, BUN 17, creatinine 1.2, glucose 151, lactate 1.8, albumin 3.4, mag 1.2, repeat mag 1.8. UA, blood culture pending at this time. IMAGING: Chest x-ray, no acute cardiopulmonary process. IMPRESSION: 1. Fever, could be reactive from inflammatory response with reaction to questionable allopurinol vs other, now resolved. 2. Leukopenia from chemotherapy. 3. Lymphoma, on chemotherapy. 4. Mild hyperbilirubinemia, improving. 5. Hypokalemia. 6. Hypomagnesemia. 7. Rash, likely a drug-induced resolving. 8. Acute kidney injury. 9. Protein-calorie malnutrition. RECOMMENDATIONS: 1. Observe off antibiotics very closely. 2. Low threshold to restart cefepime if temperature is greater than 101. Have placed orders in chart to restart if she has any fever recurrence Discussed with RN and pharmacy. 3. Follow up cultures and lab in a.m. 4. Continue supportive care. 5. Above plan was discussed with pt and at bedside, they agreed with the plan of care Discussed with the . Discussed with nursing. Thank you very much for giving me an opportunity to participate in this patient's care. We will follow along with you. JOIE CARMONA MD DR: JEREL/esme JOB#: [id number] / [id number] FREIDA
[2019-01-02] MEDS: LEVOTHYROXINE 100 MCG PO SCH (06:36)
[2019-01-02 07:00] VITALS: BP 110/56
[2019-01-02 07:01] LABS: BASO % 1 % (0-3); EOS # 0.1 x10^3/uL (0.0-0.7); EOS % 11 % (0-3); LYMPH # 0.2 x10^3/uL (1.0-4.8); LYMPH % 23 % (24-48); MEAN CORPUSCULAR HEMOGLOBIN 29 pg (25-35); MEAN CORPUSCULAR HGB CONC 34 g/dL (31-37); MEAN CORPUSCULAR VOLUME 85 fL (79-100); MONO # 0.1 x10^3/uL (0.0-1.1); MONO % 14 % (0-9); NEUT # 0.5 x10^3uL (1.8-7.7); NEUT % 51 % (31-73); PLATELET COUNT 131 x10^3/uL (140-400); RED BLOOD COUNT 2.45 x10^6/uL (3.50-5.40); RED CELL DISTRIBUTION WIDTH 20.8 % (11.5-14.5)
[2019-01-02 07:10] LABS: ALBUMIN 2.5 g/dL (3.4-5.0); ALBUMIN/GLOBULIN RATIO 1.1 (1.0-1.7); CALCIUM 7.6 mg/dL (8.5-10.1); CREATININE 1.1 mg/dL (0.6-1.0); POTASSIUM 3.3 mmol/L (3.5-5.1); TOTAL BILIRUBIN 0.7 mg/dL (0.2-1.0); TOTAL PROTEIN 4.7 g/dL (6.4-8.2)
[2019-01-02 07:31] LABS: HEMATOCRIT 20.7 % (36.0-47.0)
[2019-01-02] MEDS: CEFEPIME HCL IV Push 1 GM VIAL. IVP SCH (08:48)
[2019-01-02] MEDS: MULTIVITAMIN with MINERAL TABLET. PO SCH (08:49)
[2019-01-02] MEDS: ASPIRIN CHEWABLE 81 MG TABLET. PO SCH (08:49)
[2019-01-02] MEDS: METOPROLOL TART IMMED RELEASE 25 MG TABLET. PO SCH ×2 (08:49→22:05)
[2019-01-02] MEDS: DULoxetine HCL 30 MG CAPSULE.DR PO SCH (08:49)
[2019-01-02] MEDS: POTASSIUM CHLORIDE 20 MEQ TABLET.ER. PO SCH (08:49)
[2019-01-02] MEDS ORDERED: NON FORMULARY ITEM (Biotin 10,000 MCG) PO SCH (09:00)
--- NOTE | 2019-01-02 09:27 | PDOC ---
Provider Note Provider Note Med Onc consult: 1. NHL - defer chemo, f/u as outpt 2. Anemia - plan 1 PRBC if Hb 6.9 or below. 3. Fever - per ID 4. Neutropenia - start granix See dictation SANGEETA HERNANDEZ MD Jan 02, 2019 09:27
--- NOTE | 2019-01-02 09:29 | NUR ---
SW following pt for anticipated dc needs. Chart reviewed and DW RN. Pt lives at home with spouse. ID following pt. No dc recommendations noted at this time. Will continue to follow.
--- NOTE | 2019-01-02 09:31 | PDOC ---
PROGRESS NOTES History of Present Illness History of Present Illness Assessment/Plan Assessment/Plan IMPRESSION Marginal zone lymphoma on chemotherapy Neutropenic fever, hypomagnesemia hypothyroid state on replacement Anemia hgb 7.0 01/02 WORSENING PANCYTOPENIA Diarrhea 1 episode RECENT Colitis on CAT scan INDWelling right-sided Port-A-Cath for chemotherapy NOn Sustained V. tach, asymptomatic, 12/08/18 and today The Ejection Fraction is 60-65%. There is mild concentric left ventricular hypertrophy. Doppler and Color Flow revealed no significant aortic regurgitation.recent echo 01/02, FEVER LAST NIGHT, ON NEUTROPENIC PRECAUTIONS plan blood and urine cultures ID following replete lytes cbc in am, transfuse for hgb < 7 CARDIOLOGY following ONCOLOGY following HOME MEDS tele dvt prophylaxis Continue cefepime 46 MIN PT EXAM, CHART REVIEW, > 50% of time spent with exam, chart review, pt care coordination, at high risk of sepsis per my chart review Vitals Vitals Vital Signs Date Time Temp Pulse Resp B/P (MAP) Pulse Ox O2 Delivery O2 Flow Rate FiO2 01/02/19 08:49 97 110/56 01/02/19 08:00 Room Air 01/02/19 07:00 98.0 20 95 98.0 Physical Exam General: Alert, Oriented X3, Cooperative, No acute distress, Other (appears fatigued) Heart: Regular rate, Normal S1, Normal S2 Lungs: Clear Abdomen: Soft, No tenderness, No hepatosplenomegaly Extremities: No clubbing, No cyanosis Skin: Other (anasarca, diffuse erythema) Labs LABS Laboratory Tests Test 01/01/19 09:50 01/02/19 06:38 Sodium Level 140 mmol/L (136-145) 140 mmol/L (136-145) Potassium Level 3.3 mmol/L (3.5-5.1) 3.3 mmol/L (3.5-5.1) Chloride Level 106 mmol/L (98-107) 108 mmol/L (98-107) Carbon Dioxide Level 24 mmol/L (21-32) 24 mmol/L (21-32) Anion Gap 10 (6-14) 8 (6-14) Blood Urea Nitrogen 32 mg/dL (7-20) 20 mg/dL (7-20) Creatinine 1.8 mg/dL (0.6-1.0) 1.1 mg/dL (0.6-1.0) Estimated GFR (Cockcroft-Gault) 28.9 51.0 BUN/Creatinine Ratio 18 (6-20) 18 (6-20) Glucose Level 106 mg/dL (70-99) 96 mg/dL (70-99) Calcium Level 7.7 mg/dL (8.5-10.1) 7.6 mg/dL (8.5-10.1) Magnesium Level 1.8 mg/dL (1.8-2.4) 2.3 mg/dL (1.8-2.4) Total Bilirubin 1.3 mg/dL (0.2-1.0) 0.7 mg/dL (0.2-1.0) Aspartate Amino Transf (AST/SGOT) 23 U/L (15-37) 17 U/L (15-37) Alanine Aminotransferase (ALT/SGPT) 27 U/L (14-59) 23 U/L (14-59) Alkaline Phosphatase 100 U/L (46-116) 96 U/L (46-116) Total Protein 4.5 g/dL (6.4-8.2) 4.7 g/dL (6.4-8.2) Albumin 2.4 g/dL (3.4-5.0) 2.5 g/dL (3.4-5.0) Albumin/Globulin Ratio 1.1 (1.0-1.7) 1.1 (1.0-1.7) White Blood Count 1.0 x10^3/uL (4.0-11.0) Red Blood Count 2.45 x10^6/uL (3.50-5.40) Hemoglobin 7.0 g/dL (12.0-15.5) Hematocrit 20.7 % (36.0-47.0) Mean Corpuscular Volume 85 fL (79-100) Mean Corpuscular Hemoglobin 29 pg (25-35) Mean Corpuscular Hemoglobin Concent 34 g/dL (31-37) Red Cell Distribution Width 20.8 % (11.5-14.5) Platelet Count 131 x10^3/uL (140-400) Neutrophils (%) (Auto) 51 % (31-73) Lymphocytes (%) (Auto) 23 % (24-48) Monocytes (%) (Auto) 14 % (0-9) Eosinophils (%) (Auto) 11 % (0-3) Basophils (%) (Auto) 1 % (0-3) Neutrophils # (Auto) 0.5 x10^3uL (1.8-7.7) Lymphocytes # (Auto) 0.2 x10^3/uL (1.0-4.8) Monocytes # (Auto) 0.1 x10^3/uL (0.0-1.1) Eosinophils # (Auto) 0.1 x10^3/uL (0.0-0.7) Basophils # (Auto) 0.0 x10^3/uL (0.0-0.2) Assessment and Plan Assessmemt and Plan Problems Medical Problems: (1) Hypokalemia Status: Acute (2) Hypomagnesemia Status: Acute (3) Leukopenia Status: Acute (4) Neutropenic fever Status: Acute (5) SIRS (systemic inflammatory response syndrome) Status: Acute STATUS: REG ERORD. PHYSICIAN: MICHAEL JOHNSON MD REASON: eval for sepsis. pt has septic shock, cancer patient. diarrhea. PROCEDURE: CT CHEST ABD PELVIS W/CONTRAST INDICATION: eval for sepsis; fever; Omni 300, 75ml COMPARISON: June 23, 2018 TECHNIQUE: Axial CT images obtained through the chest, abdomen and pelvis with contrast. One or more of the following individualized dose reduction techniques were utilized for this examination: 1. Automated exposure control; 2. Adjustment of the mA and/or kV according to patient size; 3. Use of iterative reconstruction technique. FINDINGS: Chest: No evidence of pneumothorax. Minimal probable dependent atelectasis. Port with tip in right atrial region. There are some prominent lymph nodes in the mediastinum. For example precarinal region measuring up to about 11 mm short axis. Degenerative changes spine. Thoracic aorta is not aneurysmal. Portion of a ascending thoracic aorta is obscured by motion. Abdomen and pelvis: Abdominal aorta not aneurysmal. Postcholecystectomy changes. No peripancreatic fluid collection. Splenomegaly. No left-sided hydronephrosis. Urinary bladder is decompressed. No right-sided hydronephrosis. Indistinctness adjacent to urinary bladder. No definite periappendiceal inflammation. No dilated loops of bowel to suggest obstruction. Degenerative changes of the spine with central canal neural foraminal stenosis. IMPRESSION: 1. Splenomegaly is identified. 2. Urinary bladder is not very distended but there is some mild indistinctness of fat adjacent to it. Nonspecific in nature but would correlate with symptoms to ensure there is not a pathologic cause such as mild cystitis. 3. There is some apparent wall thickening of the colon. The colon is not very distended therefore it is possible that this is secondary to lack of distention but if the patient has appropriate symptoms colitis is possible. Electronically signed by: Mandeep Bear MD (12/03/2018 1:55 AM) [facility] DICTATED and SIGNED BY: MANDEEP BEAR MD DATE: 12/03/18 0155 Indication: Hyperbilirubinemia and jaundice. History of cholecystectomy. Lymphoma. TECHNIQUE: MRI and MRCP of the abdomen without IV contrast COMPARISON: CT abdomen pelvis from 12/03/2018. FINDINGS: Small bilateral pleural effusions. Heart is normal in size. No pericardial effusion. Mild diffuse hepatic steatosis. Liver is normal in morphology. No suspicious T2 signal in the liver. Spleen is moderately enlarged measuring 18.5 cm without abnormal T2 lesion. Trace perisplenic ascites. No intra or extrahepatic biliary duct dilation. Status post cholecystectomy. No fluid is seen in the gallbladder fossa. Main pancreatic duct is nondilated. No pancreatic or peripancreatic edema. Adrenal glands demonstrate no nodularity. No hydronephrosis. Trace perinephric edema is seen, nonspecific. Bilateral flank body wall edema. No bowel obstruction. IMPRESSION: 1. No intra or extrahepatic biliary duct dilation. 2. Mild hepatic steatosis. Electronically signed by: Jh Bonilla DO (12/05/2018 4:04 PM) [facility] Single view of the chest. 12/31/2018 3:29 PM Indication: FEVER, LOW WHITE BLOOD CELL COUNT Comparison: Chest radiograph December 02, 2018 Findings: The port access needle seems to be eccentric. Correlate with function. There is no focal consolidation. There is no pleural effusion or pneumothorax. The cardiomediastinal silhouette and pulmonary vasculature are within normal limits. No acute osseous abnormalities are seen. Impression: 1.No evidence of acute cardiopulmonary process. 2. Eccentric appearance of port access needle. Correlate with function to ensure proper placement. Electronically signed by: Khai Torres MD (12/31/2018 3:58 PM) [facility] Comment Review of Relevant I have reviewed the following items kike (where applicable) has been applied. Labs Laboratory Tests Test 12/31/18 15:00 01/01/19 09:50 01/02/19 06:38 White Blood Count 1.9 x10^3/uL (4.0-11.0) 1.0 x10^3/uL (4.0-11.0) Red Blood Count 3.50 x10^6/uL (3.50-5.40) 2.45 x10^6/uL (3.50-5.40) Hemoglobin 10.0 g/dL (12.0-15.5) 7.0 g/dL (12.0-15.5) Hematocrit 29.6 % (36.0-47.0) 20.7 % (36.0-47.0) Mean Corpuscular Volume 84 fL (79-100) 85 fL (79-100) Mean Corpuscular Hemoglobin 29 pg (25-35) 29 pg (25-35) Mean Corpuscular Hemoglobin Concent 34 g/dL (31-37) 34 g/dL (31-37) Red Cell Distribution Width 20.9 % (11.5-14.5) 20.8 % (11.5-14.5) Platelet Count 168 x10^3/uL (140-400) 131 x10^3/uL (140-400) Neutrophils (%) (Auto) 91 % (31-73) 51 % (31-73) Lymphocytes (%) (Auto) 3 % (24-48) 23 % (24-48) Monocytes (%) (Auto) 5 % (0-9) 14 % (0-9) Eosinophils (%) (Auto) 1 % (0-3) 11 % (0-3) Basophils (%) (Auto) 0 % (0-3) 1 % (0-3) Neutrophils # (Auto) 1.7 x10^3uL (1.8-7.7) 0.5 x10^3uL (1.8-7.7) Lymphocytes # (Auto) 0.1 x10^3/uL (1.0-4.8) 0.2 x10^3/uL (1.0-4.8) Monocytes # (Auto) 0.1 x10^3/uL (0.0-1.1) 0.1 x10^3/uL (0.0-1.1) Eosinophils # (Auto) 0.0 x10^3/uL (0.0-0.7) 0.1 x10^3/uL (0.0-0.7) Basophils # (Auto) 0.0 x10^3/uL (0.0-0.2) 0.0 x10^3/uL (0.0-0.2) Segmented Neutrophils % 45 % (35-66) Band Neutrophils % 48 % (0-9) Lymphocytes % 3 % (24-48) Monocytes % 3 % (0-10) Eosinophils % 1 % (0-5) Nucleated Red Blood Cells 1 Platelet Estimate Adequate (ADEQUATE) Polychromasia Slight Basophilic Stippling Present Anisocytosis Mod Ovalocytes Few Sodium Level 144 mmol/L (136-145) 140 mmol/L (136-145) 140 mmol/L (136-145) Potassium Level 2.8 mmol/L (3.5-5.1) 3.3 mmol/L (3.5-5.1) 3.3 mmol/L (3.5-5.1) Chloride Level 106 mmol/L (98-107) 106 mmol/L (98-107) 108 mmol/L (98-107) Carbon Dioxide Level 26 mmol/L (21-32) 24 mmol/L (21-32) 24 mmol/L (21-32) Anion Gap 12 (6-14) 10 (6-14) 8 (6-14) Blood Urea Nitrogen 17 mg/dL (7-20) 32 mg/dL (7-20) 20 mg/dL (7-20) Creatinine 1.2 mg/dL (0.6-1.0) 1.8 mg/dL (0.6-1.0) 1.1 mg/dL (0.6-1.0) Estimated GFR (Cockcroft-Gault) 46.1 28.9 51.0 BUN/Creatinine Ratio 14 (6-20) 18 (6-20) 18 (6-20) Glucose Level 151 mg/dL (70-99) 106 mg/dL (70-99) 96 mg/dL (70-99) Lactic Acid Level 1.8 mmol/L (0.4-2.0) Calcium Level 8.8 mg/dL (8.5-10.1) 7.7 mg/dL (8.5-10.1) 7.6 mg/dL (8.5-10.1) Magnesium Level 1.2 mg/dL (1.8-2.4) 1.8 mg/dL (1.8-2.4) 2.3 mg/dL (1.8-2.4) Total Bilirubin 1.7 mg/dL (0.2-1.0) 1.3 mg/dL (0.2-1.0) 0.7 mg/dL (0.2-1.0) Aspartate Amino Transf (AST/SGOT) 22 U/L (15-37) 23 U/L (15-37) 17 U/L (15-37) Alanine Aminotransferase (ALT/SGPT) 25 U/L (14-59) 27 U/L (14-59) 23 U/L (14-59) Alkaline Phosphatase 140 U/L (46-116) 100 U/L (46-116) 96 U/L (46-116) Total Protein 5.6 g/dL (6.4-8.2) 4.5 g/dL (6.4-8.2) 4.7 g/dL (6.4-8.2) Albumin 3.4 g/dL (3.4-5.0) 2.4 g/dL (3.4-5.0) 2.5 g/dL (3.4-5.0) Albumin/Globulin Ratio 1.5 (1.0-1.7) 1.1 (1.0-1.7) 1.1 (1.0-1.7) Laboratory Tests Test 01/01/19 09:50 01/02/19 06:38 Sodium Level 140 mmol/L (136-145) 140 mmol/L (136-145) Potassium Level 3.3 mmol/L (3.5-5.1) 3.3 mmol/L (3.5-5.1) Chloride Level 106 mmol/L (98-107) 108 mmol/L (98-107) Carbon Dioxide Level 24 mmol/L (21-32) 24 mmol/L (21-32) Anion Gap 10 (6-14) 8 (6-14) Blood Urea Nitrogen 32 mg/dL (7-20) 20 mg/dL (7-20) Creatinine 1.8 mg/dL (0.6-1.0) 1.1 mg/dL (0.6-1.0) Estimated GFR (Cockcroft-Gault) 28.9 51.0 BUN/Creatinine Ratio 18 (6-20) 18 (6-20) Glucose Level 106 mg/dL (70-99) 96 mg/dL (70-99) Calcium Level 7.7 mg/dL (8.5-10.1) 7.6 mg/dL (8.5-10.1) Magnesium Level 1.8 mg/dL (1.8-2.4) 2.3 mg/dL (1.8-2.4) Total Bilirubin 1.3 mg/dL (0.2-1.0) 0.7 mg/dL (0.2-1.0) Aspartate Amino Transf (AST/SGOT) 23 U/L (15-37) 17 U/L (15-37) Alanine Aminotransferase (ALT/SGPT) 27 U/L (14-59) 23 U/L (14-59) Alkaline Phosphatase 100 U/L (46-116) 96 U/L (46-116) Total Protein 4.5 g/dL (6.4-8.2) 4.7 g/dL (6.4-8.2) Albumin 2.4 g/dL (3.4-5.0) 2.5 g/dL (3.4-5.0) Albumin/Globulin Ratio 1.1 (1.0-1.7) 1.1 (1.0-1.7) White Blood Count 1.0 x10^3/uL (4.0-11.0) Red Blood Count 2.45 x10^6/uL (3.50-5.40) Hemoglobin 7.0 g/dL (12.0-15.5) Hematocrit 20.7 % (36.0-47.0) Mean Corpuscular Volume 85 fL (79-100) Mean Corpuscular Hemoglobin 29 pg (25-35) Mean Corpuscular Hemoglobin Concent 34 g/dL (31-37) Red Cell Distribution Width 20.8 % (11.5-14.5) Platelet Count 131 x10^3/uL (140-400) Neutrophils (%) (Auto) 51 % (31-73) Lymphocytes (%) (Auto) 23 % (24-48) Monocytes (%) (Auto) 14 % (0-9) Eosinophils (%) (Auto) 11 % (0-3) Basophils (%) (Auto) 1 % (0-3) Neutrophils # (Auto) 0.5 x10^3uL (1.8-7.7) Lymphocytes # (Auto) 0.2 x10^3/uL (1.0-4.8) Monocytes # (Auto) 0.1 x10^3/uL (0.0-1.1) Eosinophils # (Auto) 0.1 x10^3/uL (0.0-0.7) Basophils # (Auto) 0.0 x10^3/uL (0.0-0.2) Microbiology 12/31/18 Blood Culture - Preliminary, Resulted NO GROWTH AFTER 1 DAY Medications Current Medications Sodium Chloride 1,000 ml @ 1,000 mls/hr 1X ONCE IV Last administered on at 15:54; Start 12/31/18 at 14:45; Stop 12/31/18 at 15:44; Status DC Acetaminophen (Tylenol) 500 mg 1X ONCE PO Last administered on 12/31/18at 15:53 ; Start 12/31/18 at 15:30; Stop 12/31/18 at 15:34; Status DC Sodium Chloride 1,000 ml @ 1,000 mls/hr 1X ONCE IV Last administered on at 15:54; Start 12/31/18 at 15:45; Stop 12/31/18 at 16:44; Status DC Cefepime HCl (Maxipime) 2 gm 1X ONCE IVP Last administered on 12/31/18at 17:58 ; Start 12/31/18 at 15:45; Stop 12/31/18 at 15:46; Status DC Potassium Chloride (Klor-Con) 40 meq 1X ONCE PO Last administered on at 17:06; Start 12/31/18 at 16:00; Stop 12/31/18 at 16:01; Status DC Magnesium Sulfate 50 ml @ 25 mls/hr 1X ONCE IV Last administered on 12/31/18at 17:07; Start 12/31/18 at 16:00; Stop 12/31/18 at 17:59; Status DC Acetaminophen (Tylenol) 650 mg PRN Q4HRS PRN PO FEVER Last administered on 01/01at 05:42; Start 12/31/18 at 16:00; Stop 01/01/19 at 15:59; Status DC Diphenhydramine HCl (Benadryl) 25 mg 1X ONCE PO Last administered on at 00:22; Start 12/31/18 at 23:15; Stop 12/31/18 at 23:16; Status DC Metoprolol Tartrate (Lopressor) 25 mg DAILY PO ; Start 01/01/19 at 09:00; Stop 01/01/19 at 17:04; Status DC Cefepime HCl (Maxipime) 1 gm Q12HR IVP ; Start 01/01/19 at 12:30; Stop 01/01/19 at 12:30; Status DC Cefepime HCl (Maxipime) 1 gm Q12HR IVP ; Start 01/01/19 at 12:30; Status Cancel Magnesium Sulfate 50 ml @ 25 mls/hr 1X ONCE IV Last administered on 01/01/19at 14:28; Start 01/01/19 at 13:15; Stop 01/01/19 at 15:14; Status DC Aspirin (Children'S Aspirin) 81 mg DAILY PO Last administered on 01/02/19 08: 49; Start 01/02/19 at 09:00 Duloxetine HCl (Cymbalta) 30 mg DAILY PO Last administered on 01/02/19 08:49; Start 01/02/19 at 09:00 Non-Formulary Medication 1 ea DAILY06 PO Last administered on 01/02/19at 06:36; Start 01/02/19 at 06:00 Non-Formulary Medication (Biotin ) 10,000 mcg DAILY PO ; Start 01/02/19 at 09:00 ; Status UNV Latanoprost (Xalatan) 1 drop QHS OU ; Start 01/01/19 at 21:00 Multivitamins (Thera M Plus) 1 tab DAILY PO Last administered on 01/02/19at 08: 49; Start 01/02/19 at 09:00 Enoxaparin Sodium (Lovenox 40mg Syringe) 40 mg Q24H SQ Last administered on 16:01; Start 01/01/19 at 15:00 Potassium Chloride (Klor-Con) 40 meq 1X ONCE PO Last administered on at 16:02; Start 01/01/19 at 15:00; Stop 01/01/19 at 15:01; Status DC Potassium Chloride (Klor-Con) 20 meq DAILYWBKFT PO Last administered on at 08:49; Start 01/02/19 at 08:00 Metoprolol Tartrate (Lopressor) 12.5 mg BID PO ; Start 01/01/19 at 21:00 Cefepime HCl (Maxipime) 1 gm Q12HR IVP Last administered on 01/02/19at 08:48; Start 01/01/19 at 20:00 Tbo-Filgrastim (Granix) 480 mcg QHS SQ ; Start 01/02/19 at 21:00; Status UNV Active Scripts Active Reported Biotin 10,000 Mcg Capsule 10,000 Mcg PO DAILY Multivitamins (Multivitamin) 1 Each Tablet 1 Each PO DAILY Metoprolol Tartrate 25 Mg Tablet 25 Mg PO DAILY Cymbalta (Duloxetine Hcl) 30 Mg Capsule. 1 Cap PO DAILY Aspirin 81 Mg Tab.chew 1 Tab PO DAILY Synthroid (Levothyroxine Sodium) 88 Mcg Tablet 100 Mcg PO DAILY Latanoprost 2.5 Ml Drops 1 Drop EACHEYE QHS Vitals/I & O Vital Sign - Last 24 Hours 01/01/19 01/01/19 01/01/19 01/01/19 11:00 15:00 19:00 19:41 Temp 98.1 98.1 101.3 98.1 98.1 101.3 Pulse 108 112 121 Resp 16 18 20 B/P (MAP) 93/39 (57) 90/44 (59) 121/48 (72) Pulse Ox 98 99 98 O2 Delivery Room Air Room Air Room Air Room Air 01/01/19 01/01/19 01/02/19 01/02/19 21:00 23:00 03:00 07:00 Temp 100.8 100.0 98.0 100.8 100.0 98.0 Pulse 121 111 117 97 Resp 18 18 20 B/P (MAP) 121/48 110/54 (72) 119/54 (75) 110/56 (74) Pulse Ox 97 94 95 O2 Delivery Room Air Room Air Room Air 01/02/19 01/02/19 08:00 08:49 Pulse 97 B/P (MAP) 110/56 O2 Delivery Room Air Intake and Output 01/01/19 01/01/19 01/02/19 14:59 22:59 06:59 Intake Total 100 ml Balance 100 ml BRIAN DARLING MD Jan 02, 2019 09:31
--- NOTE | 2019-01-02 10:34 | PDOC ---
Infectious Disease Note Subjective: Subjective pt had fever last pm says feels better today swelling and rash are improving some abdo discomfort but now improved no diarrhea ROS: ROS Negative except for above. Vital Signs: Vital Signs Vital Signs Date Time Temp Pulse Resp B/P (MAP) Pulse Ox O2 Delivery O2 Flow Rate FiO2 01/02/19 08:49 97 110/56 01/02/19 08:00 Room Air 01/02/19 07:00 98.0 20 95 98.0 Physical Exam: PHYSICAL EXAM HEENT: Normocephalic, atraumatic, anicteric, lid edema bilateral improving, redness improving. No sinus tenderness, no oral lesions, no thrush. Oropharynx clear. NECK: Supple, no JVD, no lymphadenopathy. LUNGS: Clear bilaterally. No wheezing. CARDIOVASCULAR: S1, S2. No murmurs or rubs. ABDOMEN: Soft, nontender, obese, benign. EXTREMITIES: No edema or cyanosis. DERM: Dry scaly skin bilateral upper extremity and lower extremity. Face, very faint maculopapular rash on the face, upper extremity and lower extremity fading. No skin breakdown. CENTRAL NERVOUS SYSTEM: Alert and oriented. NEUROLOGIC: Grossly nonfocal. Port-A-Cath without signs of complications. PSYCHIATRIC: Cooperative, appropriate mood and affect. Medications: Inpatient Meds: Current Medications Medications (Trade) Dose Ordered Sig/Angeline Start Time Stop Time Status Last Admin Dose Admin Acetaminophen (Tylenol) 650 mg PRN Q4HRS PRN 12/31/18 16:00 01/01/19 15:59 DC 01/01/19 05:42 650 MG Aspirin (Children'S Aspirin) 81 mg DAILY 01/02/19 09:00 01/02/19 08:49 81 MG Cefepime HCl (Maxipime) 1 gm Q12HR 01/01/19 20:00 01/02/19 08:48 1 GM Diphenhydramine HCl (Benadryl) 25 mg 1X ONCE 12/31/18 23:15 12/31/18 23:16 DC 01/01/19 00:22 25 MG Duloxetine HCl (Cymbalta) 30 mg DAILY 01/02/19 09:00 01/02/19 08:49 30 MG Enoxaparin Sodium (Lovenox 40mg Syringe) 40 mg Q24H 01/01/19 15:00 01/01/19 16:01 40 MG Latanoprost (Xalatan) 1 drop QHS 01/01/19 21:00 Magnesium Sulfate 50 ml @ 25 mls/hr 1X ONCE 01/01/19 13:15 01/01/19 15:14 DC 01/01/19 14:28 25 MLS/HR Metoprolol Tartrate (Lopressor) 12.5 mg BID 01/01/19 21:00 Multivitamins (Thera M Plus) 1 tab DAILY 01/02/19 09:00 01/02/19 08:49 1 TAB Non-Formulary Medication (Biotin ) 10,000 mcg DAILY 01/02/19 09:00 UNV Potassium Chloride (Klor-Con) 20 meq DAILYWBKFT 01/02/19 08:00 01/02/19 08:49 20 MEQ Sodium Chloride 1,000 ml @ 1,000 mls/hr 1X ONCE 12/31/18 15:45 12/31/18 16:44 DC 12/31/18 15:54 1,000 MLS/HR Tbo-Filgrastim (Granix) 480 mcg QHS 01/02/19 21:00 Labs: Lab Laboratory Tests Test 01/02/19 06:38 White Blood Count 1.0 x10^3/uL (4.0-11.0) Red Blood Count 2.45 x10^6/uL (3.50-5.40) Hemoglobin 7.0 g/dL (12.0-15.5) Hematocrit 20.7 % (36.0-47.0) Mean Corpuscular Volume 85 fL (79-100) Mean Corpuscular Hemoglobin 29 pg (25-35) Mean Corpuscular Hemoglobin Concent 34 g/dL (31-37) Red Cell Distribution Width 20.8 % (11.5-14.5) Platelet Count 131 x10^3/uL (140-400) Neutrophils (%) (Auto) 51 % (31-73) Lymphocytes (%) (Auto) 23 % (24-48) Monocytes (%) (Auto) 14 % (0-9) Eosinophils (%) (Auto) 11 % (0-3) Basophils (%) (Auto) 1 % (0-3) Neutrophils # (Auto) 0.5 x10^3uL (1.8-7.7) Lymphocytes # (Auto) 0.2 x10^3/uL (1.0-4.8) Monocytes # (Auto) 0.1 x10^3/uL (0.0-1.1) Eosinophils # (Auto) 0.1 x10^3/uL (0.0-0.7) Basophils # (Auto) 0.0 x10^3/uL (0.0-0.2) Sodium Level 140 mmol/L (136-145) Potassium Level 3.3 mmol/L (3.5-5.1) Chloride Level 108 mmol/L (98-107) Carbon Dioxide Level 24 mmol/L (21-32) Anion Gap 8 (6-14) Blood Urea Nitrogen 20 mg/dL (7-20) Creatinine 1.1 mg/dL (0.6-1.0) Estimated GFR (Cockcroft-Gault) 51.0 BUN/Creatinine Ratio 18 (6-20) Glucose Level 96 mg/dL (70-99) Calcium Level 7.6 mg/dL (8.5-10.1) Magnesium Level 2.3 mg/dL (1.8-2.4) Total Bilirubin 0.7 mg/dL (0.2-1.0) Aspartate Amino Transf (AST/SGOT) 17 U/L (15-37) Alanine Aminotransferase (ALT/SGPT) 23 U/L (14-59) Alkaline Phosphatase 96 U/L (46-116) Total Protein 4.7 g/dL (6.4-8.2) Albumin 2.5 g/dL (3.4-5.0) Albumin/Globulin Ratio 1.1 (1.0-1.7) Objective: Assessment: 1. Fever could be infectious vs inflammatory from drug reaction 2. Leukopenia from chemotherapy. 3. Lymphoma, on chemotherapy. 4. hyperbilirubinemia chronic,abn lfts improved from before 5. Hypokalemia/Hypomagnesemia.on supplements 6. Chronic dermatitis with dry scaly skin from before improved 7, Superimposed generalized Rash, 8. Acute kidney injury. 9. Protein-calorie malnutrition. 10. Anemia and thrombocytopenia from chemo Plan: Plan of Care Continue cefepime Follow up cultures and lab in a.m. Continue supportive care. Discussed with the . Discussed with nursing. JOIE CARMONA MD Jan 02, 2019 10:34
[2019-01-02 11:00] VITALS: BP 117/63
[2019-01-02] MEDS: CEFEPIME HCL IV Push 2 GM VIAL. IVP SCH ×2 (14:39→22:05)
[2019-01-02] MEDS: ENOXAPARIN 40 MG/0.4 ML SYRINGE. SQ SCH (14:39)
[2019-01-02 15:00] VITALS: BP 120/59
[2019-01-02 19:00] VITALS: BP 105/72
[2019-01-02] MEDS: LATANOPROST 0.005% OPHTH SOLUTION 2.5ML BOTTLE. OU SCH (22:06)
[2019-01-02] MEDS: LACTOBACILLUS RHAMNOSUS GG 1 CAPSULE. PO SCH (22:06)
[2019-01-02] MEDS: TBO-FILGRASTIM 480 MCG/0.8 ML SYRINGE. SQ SCH (22:07)
[2019-01-02 23:00] VITALS: BP 133/74
[2019-01-03 03:00] VITALS: BP 129/72
[2019-01-03] MEDS: LEVOTHYROXINE 100 MCG PO SCH (05:52)
[2019-01-03] MEDS: CEFEPIME HCL IV Push 2 GM VIAL. IVP SCH ×3 (05:52→21:48)
[2019-01-03 06:47] LABS: BASO % 0 % (0-3); EOS # 0.2 x10^3/uL (0.0-0.7); EOS % 4 % (0-3); HEMATOCRIT 25.3 % (36.0-47.0); HEMOGLOBIN 8.5 g/dL (12.0-15.5); LYMPH # 0.3 x10^3/uL (1.0-4.8); LYMPH % 6 % (24-48); MEAN CORPUSCULAR HEMOGLOBIN 29 pg (25-35); MEAN CORPUSCULAR HGB CONC 34 g/dL (31-37); MEAN CORPUSCULAR VOLUME 85 fL (79-100); MONO # 0.4 x10^3/uL (0.0-1.1); MONO % 7 % (0-9); NEUT # 4.1 x10^3uL (1.8-7.7); NEUT % 83 % (31-73); PLATELET COUNT 136 x10^3/uL (140-400); RED BLOOD COUNT 2.98 x10^6/uL (3.50-5.40); RED CELL DISTRIBUTION WIDTH 20.9 % (11.5-14.5)
[2019-01-03 06:56] LABS: CALCIUM 8.1 mg/dL (8.5-10.1); CREATININE 0.8 mg/dL (0.6-1.0); GFR 73.7; POTASSIUM 3.5 mmol/L (3.5-5.1)
[2019-01-03 07:00] VITALS: BP 132/71
[2019-01-03] MEDS: POTASSIUM CHLORIDE 20 MEQ TABLET.ER. PO SCH (08:00)
[2019-01-03] MEDS: METOPROLOL TART IMMED RELEASE 25 MG TABLET. PO SCH ×2 (08:34→19:56)
[2019-01-03] MEDS: LACTOBACILLUS RHAMNOSUS GG 1 CAPSULE. PO SCH ×2 (08:36→21:49)
[2019-01-03] MEDS: MULTIVITAMIN with MINERAL TABLET. PO SCH (08:36)
[2019-01-03] MEDS: ASPIRIN CHEWABLE 81 MG TABLET. PO SCH (08:36)
[2019-01-03] MEDS: DULoxetine HCL 30 MG CAPSULE.DR PO SCH (08:36)
--- NOTE | 2019-01-03 10:28 | PDOC ---
Infectious Disease Note Subjective Subjective Feeling alright this morning, Swelling and rash are improving Some nausea and diarrhea Appetite diminished ROS ROS per HPI otherwise neg Vital Sign Vital Signs Vital Signs Date Time Temp Pulse Resp B/P (MAP) Pulse Ox O2 Delivery O2 Flow Rate FiO2 01/03/19 07:00 98.1 80 18 132/71 (91) 97 Room Air 98.1 Physical Exam PHYSICAL EXAM GENERAL: In chair, alert, NAD HEENT: No gross facial swelling. Oral cavity dry NECK: Supple LUNGS: Clear bilaterally. No wheezing. CARDIOVASCULAR: S1, S2. No murmurs or rubs. ABDOMEN: Soft, nontender, obese, BS + EXTREMITIES: No edema or cyanosis. DERM: Dry scaly skin. No rash PROFESSOR OF PHYSICAL EDUCATION: Alert and oriented. Port-A-Cath without signs of complications. Labs Lab Laboratory Tests Test 01/03/19 06:05 White Blood Count 5.0 x10^3/uL (4.0-11.0) Red Blood Count 2.98 x10^6/uL (3.50-5.40) Hemoglobin 8.5 g/dL (12.0-15.5) Hematocrit 25.3 % (36.0-47.0) Mean Corpuscular Volume 85 fL (79-100) Mean Corpuscular Hemoglobin 29 pg (25-35) Mean Corpuscular Hemoglobin Concent 34 g/dL (31-37) Red Cell Distribution Width 20.9 % (11.5-14.5) Platelet Count 136 x10^3/uL (140-400) Neutrophils (%) (Auto) 83 % (31-73) Lymphocytes (%) (Auto) 6 % (24-48) Monocytes (%) (Auto) 7 % (0-9) Eosinophils (%) (Auto) 4 % (0-3) Basophils (%) (Auto) 0 % (0-3) Neutrophils # (Auto) 4.1 x10^3uL (1.8-7.7) Lymphocytes # (Auto) 0.3 x10^3/uL (1.0-4.8) Monocytes # (Auto) 0.4 x10^3/uL (0.0-1.1) Eosinophils # (Auto) 0.2 x10^3/uL (0.0-0.7) Basophils # (Auto) 0.0 x10^3/uL (0.0-0.2) Sodium Level 144 mmol/L (136-145) Potassium Level 3.5 mmol/L (3.5-5.1) Chloride Level 109 mmol/L (98-107) Carbon Dioxide Level 25 mmol/L (21-32) Anion Gap 10 (6-14) Blood Urea Nitrogen 10 mg/dL (7-20) Creatinine 0.8 mg/dL (0.6-1.0) Estimated GFR (Cockcroft-Gault) 73.7 Glucose Level 98 mg/dL (70-99) Calcium Level 8.1 mg/dL (8.5-10.1) Micro 12/31/18 Blood Culture - Preliminary, Resulted NO GROWTH AFTER 2 DAYS Objective Assessment Fever could be infectious vs inflammatory from drug reaction Leukopenia from chemotherapy. s/p Granix 01/02 Lymphoma, on chemotherapy. Hyperbilirubinemia chronic,abn lfts improved from before Hypokalemia/Hypomagnesemia.on supplements Chronic dermatitis with dry scaly skin from before improved Superimposed generalized rash, resolving Acute kidney injury. Protein-calorie malnutrition. Anemia and thrombocytopenia from chemo Plan Plan of Care Continue cefepime wean in next day or so if better BC NGTD Monitor labs/temp Supportive care. D/w at bedside Attending Co-Sign Attending Co-Sign The patient was seen and interviewed as well as examined at the bedside. The chart was reviewed. The case was discussed. Agree with the plan of care. MIKAELA ENNIS APRN Jan 03, 2019 10:28 VERONICA SHAH MD Jan 03, 2019 13:40
[2019-01-03 11:26] VITALS: BP 122/66
--- NOTE | 2019-01-03 12:01 | PDOC ---
PROGRESS NOTES History of Present Illness History of Present Illness Assessment/Plan Assessment/Plan IMPRESSION Marginal zone lymphoma on chemotherapy Neutropenic fever, hypomagnesemia hypothyroid state on replacement Anemia hgb 7.0 01/02 WORSENING PANCYTOPENIA Diarrhea 1 episode RECENT Colitis on CAT scan INDWelling right-sided Port-A-Cath for chemotherapy NOn Sustained V. tach, asymptomatic, 12/08/18 and today The Ejection Fraction is 60-65%. There is mild concentric left ventricular hypertrophy. Doppler and Color Flow revealed no significant aortic regurgitation.recent echo 01/02, FEVER LAST NIGHT, ON NEUTROPENIC PRECAUTIONS TEMP 101.3 LAST PM plan blood and urine cultures ID following replete lytes cbc in am, transfuse for hgb < 7 CARDIOLOGY following ONCOLOGY following HOME MEDS tele dvt prophylaxis Continue cefepime 42 MIN PT EXAM, CHART REVIEW, > 50% of time spent with exam, chart review, pt care coordination, at high risk of sepsis per my chart review Vitals Vitals Vital Signs Date Time Temp Pulse Resp B/P (MAP) Pulse Ox O2 Delivery O2 Flow Rate FiO2 01/03/19 11:26 98.6 88 18 122/66 (84) 99 Room Air 98.6 Physical Exam Physical Exam GENERAL: In chair, alert, NAD HEENT: No gross facial swelling. Oral cavity dry NECK: Supple LUNGS: Clear bilaterally. No wheezing. CARDIOVASCULAR: S1, S2. No murmurs or rubs. ABDOMEN: Soft, nontender, obese, BS + EXTREMITIES: No edema or cyanosis. DERM: Dry scaly skin. No rash ROCK PICKER: Alert and oriented. Port-A-Cath without signs of complications. General: Alert, Oriented X3, Cooperative, No acute distress, Other (appears fatigued) Heart: Regular rate, Normal S1, Normal S2 Lungs: Clear Abdomen: Soft, No tenderness, No hepatosplenomegaly Extremities: No clubbing, No cyanosis Skin: Other (anasarca, diffuse erythema) Labs LABS Laboratory Tests Test 01/03/19 06:05 White Blood Count 5.0 x10^3/uL (4.0-11.0) Red Blood Count 2.98 x10^6/uL (3.50-5.40) Hemoglobin 8.5 g/dL (12.0-15.5) Hematocrit 25.3 % (36.0-47.0) Mean Corpuscular Volume 85 fL (79-100) Mean Corpuscular Hemoglobin 29 pg (25-35) Mean Corpuscular Hemoglobin Concent 34 g/dL (31-37) Red Cell Distribution Width 20.9 % (11.5-14.5) Platelet Count 136 x10^3/uL (140-400) Neutrophils (%) (Auto) 83 % (31-73) Lymphocytes (%) (Auto) 6 % (24-48) Monocytes (%) (Auto) 7 % (0-9) Eosinophils (%) (Auto) 4 % (0-3) Basophils (%) (Auto) 0 % (0-3) Neutrophils # (Auto) 4.1 x10^3uL (1.8-7.7) Lymphocytes # (Auto) 0.3 x10^3/uL (1.0-4.8) Monocytes # (Auto) 0.4 x10^3/uL (0.0-1.1) Eosinophils # (Auto) 0.2 x10^3/uL (0.0-0.7) Basophils # (Auto) 0.0 x10^3/uL (0.0-0.2) Sodium Level 144 mmol/L (136-145) Potassium Level 3.5 mmol/L (3.5-5.1) Chloride Level 109 mmol/L (98-107) Carbon Dioxide Level 25 mmol/L (21-32) Anion Gap 10 (6-14) Blood Urea Nitrogen 10 mg/dL (7-20) Creatinine 0.8 mg/dL (0.6-1.0) Estimated GFR (Cockcroft-Gault) 73.7 Glucose Level 98 mg/dL (70-99) Calcium Level 8.1 mg/dL (8.5-10.1) Assessment and Plan Assessmemt and Plan Problems Medical Problems: (1) Hypokalemia Status: Acute (2) Hypomagnesemia Status: Acute (3) Leukopenia Status: Acute (4) Neutropenic fever Status: Acute (5) SIRS (systemic inflammatory response syndrome) Status: Acute PATIENT: DEVAN LIU ACCT: [id number] LOC: 6 [facility] U : [id number] AGE/SX: 58/F ROOM: [facility] REG : 12/31/[address]: CATRACHO JUNG MD : 1960 BED: 1 DIS : STATUS: ADM IN TLOC: SPEC #: [id number] EDDIE: 12/31/18 STATUS: RES REQ #: [id number] RECD: 12/31/[address]: SILVIO AGUILAR DO SOURCE: BLOOD ENTR: 12/31/18-7 [facility] DR: ISRAEL QUIÑONES MD SPDESC: ORDERED: BCULT Procedure Result BLOOD CULTURE Preliminary NO GROWTH AFTER 2 DAYS Comment Review of Relevant I have reviewed the following items kike (where applicable) has been applied. Labs Laboratory Tests Test 01/02/19 06:38 01/03/19 06:05 White Blood Count 1.0 x10^3/uL (4.0-11.0) 5.0 x10^3/uL (4.0-11.0) Red Blood Count 2.45 x10^6/uL (3.50-5.40) 2.98 x10^6/uL (3.50-5.40) Hemoglobin 7.0 g/dL (12.0-15.5) 8.5 g/dL (12.0-15.5) Hematocrit 20.7 % (36.0-47.0) 25.3 % (36.0-47.0) Mean Corpuscular Volume 85 fL (79-100) 85 fL (79-100) Mean Corpuscular Hemoglobin 29 pg (25-35) 29 pg (25-35) Mean Corpuscular Hemoglobin Concent 34 g/dL (31-37) 34 g/dL (31-37) Red Cell Distribution Width 20.8 % (11.5-14.5) 20.9 % (11.5-14.5) Platelet Count 131 x10^3/uL (140-400) 136 x10^3/uL (140-400) Neutrophils (%) (Auto) 51 % (31-73) 83 % (31-73) Lymphocytes (%) (Auto) 23 % (24-48) 6 % (24-48) Monocytes (%) (Auto) 14 % (0-9) 7 % (0-9) Eosinophils (%) (Auto) 11 % (0-3) 4 % (0-3) Basophils (%) (Auto) 1 % (0-3) 0 % (0-3) Neutrophils # (Auto) 0.5 x10^3uL (1.8-7.7) 4.1 x10^3uL (1.8-7.7) Lymphocytes # (Auto) 0.2 x10^3/uL (1.0-4.8) 0.3 x10^3/uL (1.0-4.8) Monocytes # (Auto) 0.1 x10^3/uL (0.0-1.1) 0.4 x10^3/uL (0.0-1.1) Eosinophils # (Auto) 0.1 x10^3/uL (0.0-0.7) 0.2 x10^3/uL (0.0-0.7) Basophils # (Auto) 0.0 x10^3/uL (0.0-0.2) 0.0 x10^3/uL (0.0-0.2) Sodium Level 140 mmol/L (136-145) 144 mmol/L (136-145) Potassium Level 3.3 mmol/L (3.5-5.1) 3.5 mmol/L (3.5-5.1) Chloride Level 108 mmol/L (98-107) 109 mmol/L (98-107) Carbon Dioxide Level 24 mmol/L (21-32) 25 mmol/L (21-32) Anion Gap 8 (6-14) 10 (6-14) Blood Urea Nitrogen 20 mg/dL (7-20) 10 mg/dL (7-20) Creatinine 1.1 mg/dL (0.6-1.0) 0.8 mg/dL (0.6-1.0) Estimated GFR (Cockcroft-Gault) 51.0 73.7 BUN/Creatinine Ratio 18 (6-20) Glucose Level 96 mg/dL (70-99) 98 mg/dL (70-99) Calcium Level 7.6 mg/dL (8.5-10.1) 8.1 mg/dL (8.5-10.1) Magnesium Level 2.3 mg/dL (1.8-2.4) Total Bilirubin 0.7 mg/dL (0.2-1.0) Aspartate Amino Transf (AST/SGOT) 17 U/L (15-37) Alanine Aminotransferase (ALT/SGPT) 23 U/L (14-59) Alkaline Phosphatase 96 U/L (46-116) Total Protein 4.7 g/dL (6.4-8.2) Albumin 2.5 g/dL (3.4-5.0) Albumin/Globulin Ratio 1.1 (1.0-1.7) Laboratory Tests Test 01/03/19 06:05 White Blood Count 5.0 x10^3/uL (4.0-11.0) Red Blood Count 2.98 x10^6/uL (3.50-5.40) Hemoglobin 8.5 g/dL (12.0-15.5) Hematocrit 25.3 % (36.0-47.0) Mean Corpuscular Volume 85 fL (79-100) Mean Corpuscular Hemoglobin 29 pg (25-35) Mean Corpuscular Hemoglobin Concent 34 g/dL (31-37) Red Cell Distribution Width 20.9 % (11.5-14.5) Platelet Count 136 x10^3/uL (140-400) Neutrophils (%) (Auto) 83 % (31-73) Lymphocytes (%) (Auto) 6 % (24-48) Monocytes (%) (Auto) 7 % (0-9) Eosinophils (%) (Auto) 4 % (0-3) Basophils (%) (Auto) 0 % (0-3) Neutrophils # (Auto) 4.1 x10^3uL (1.8-7.7) Lymphocytes # (Auto) 0.3 x10^3/uL (1.0-4.8) Monocytes # (Auto) 0.4 x10^3/uL (0.0-1.1) Eosinophils # (Auto) 0.2 x10^3/uL (0.0-0.7) Basophils # (Auto) 0.0 x10^3/uL (0.0-0.2) Sodium Level 144 mmol/L (136-145) Potassium Level 3.5 mmol/L (3.5-5.1) Chloride Level 109 mmol/L (98-107) Carbon Dioxide Level 25 mmol/L (21-32) Anion Gap 10 (6-14) Blood Urea Nitrogen 10 mg/dL (7-20) Creatinine 0.8 mg/dL (0.6-1.0) Estimated GFR (Cockcroft-Gault) 73.7 Glucose Level 98 mg/dL (70-99) Calcium Level 8.1 mg/dL (8.5-10.1) Microbiology 12/31/18 Blood Culture - Preliminary, Resulted NO GROWTH AFTER 2 DAYS Medications Current Medications Sodium Chloride 1,000 ml @ 1,000 mls/hr 1X ONCE IV Last administered on at 15:54; Start 12/31/18 at 14:45; Stop 12/31/18 at 15:44; Status DC Acetaminophen (Tylenol) 500 mg 1X ONCE PO Last administered on 12/31/18at 15:53 ; Start 12/31/18 at 15:30; Stop 12/31/18 at 15:34; Status DC Sodium Chloride 1,000 ml @ 1,000 mls/hr 1X ONCE IV Last administered on at 15:54; Start 12/31/18 at 15:45; Stop 12/31/18 at 16:44; Status DC Cefepime HCl (Maxipime) 2 gm 1X ONCE IVP Last administered on 12/31/18at 17:58 ; Start 12/31/18 at 15:45; Stop 12/31/18 at 15:46; Status DC Potassium Chloride (Klor-Con) 40 meq 1X ONCE PO Last administered on at 17:06; Start 12/31/18 at 16:00; Stop 12/31/18 at 16:01; Status DC Magnesium Sulfate 50 ml @ 25 mls/hr 1X ONCE IV Last administered on 12/31/18at 17:07; Start 12/31/18 at 16:00; Stop 12/31/18 at 17:59; Status DC Acetaminophen (Tylenol) 650 mg PRN Q4HRS PRN PO FEVER Last administered on 01/01at 05:42; Start 12/31/18 at 16:00; Stop 01/01/19 at 15:59; Status DC Diphenhydramine HCl (Benadryl) 25 mg 1X ONCE PO Last administered on at 00:22; Start 12/31/18 at 23:15; Stop 12/31/18 at 23:16; Status DC Metoprolol Tartrate (Lopressor) 25 mg DAILY PO ; Start 01/01/19 at 09:00; Stop 01/01/19 at 17:04; Status DC Cefepime HCl (Maxipime) 1 gm Q12HR IVP ; Start 01/01/19 at 12:30; Stop 01/01/19 at 12:30; Status DC Cefepime HCl (Maxipime) 1 gm Q12HR IVP ; Start 01/01/19 at 12:30; Status Cancel Magnesium Sulfate 50 ml @ 25 mls/hr 1X ONCE IV Last administered on 01/01/19 14:28; Start 01/01/19 at 13:15; Stop 01/01/19 at 15:14; Status DC Aspirin (Children'S Aspirin) 81 mg DAILY PO Last administered on 01/03/19 08: 36; Start 01/02/19 at 09:00 Duloxetine HCl (Cymbalta) 30 mg DAILY PO Last administered on 01/03/19 08:36; Start 01/02/19 at 09:00 Non-Formulary Medication 1 ea DAILY06 PO Last administered on 01/03/19 05:52; Start 01/02/19 at 06:00 Non-Formulary Medication (Biotin ) 10,000 mcg DAILY PO ; Start 01/02/19 at 09:00 ; Status UNV Latanoprost (Xalatan) 1 drop QHS OU Last administered on 01/02/19 22:06; Start 01/01/19 at 21:00 Multivitamins (Thera M Plus) 1 tab DAILY PO Last administered on 01/03/19 08: 36; Start 01/02/19 at 09:00 Enoxaparin Sodium (Lovenox 40mg Syringe) 40 mg Q24H SQ Last administered on 16:01; Start 01/01/19 at 15:00 Potassium Chloride (Klor-Con) 40 meq 1X ONCE PO Last administered on 16:02; Start 01/01/19 at 15:00; Stop 01/01/19 at 15:01; Status DC Potassium Chloride (Klor-Con) 20 meq DAILYWBKFT PO Last administered on at 08:49; Start 01/02/19 at 08:00 Metoprolol Tartrate (Lopressor) 12.5 mg BID PO ; Start 01/01/19 at 21:00 Cefepime HCl (Maxipime) 1 gm Q12HR IVP Last administered on 01/02/19 08:48; Start 01/01/19 at 20:00; Stop 01/02/19 at 13:04; Status DC Tbo-Filgrastim (Granix) 480 mcg QHS SQ Last administered on 01/02/19 22:07; Start 01/02/19 at 21:00 Cefepime HCl (Maxipime) 2 gm Q8HRS IVP Last administered on 01/03/19at 05:52; Start 01/02/19 at 14:00 Lactobacillus Rhamnosus (Culturelle) 1 cap BID PO Last administered on at 08:36; Start 01/02/19 at 21:00 Active Scripts Active Reported Biotin 10,000 Mcg Capsule 10,000 Mcg PO DAILY Multivitamins (Multivitamin) 1 Each Tablet 1 Each PO DAILY Metoprolol Tartrate 25 Mg Tablet 25 Mg PO DAILY Cymbalta (Duloxetine Hcl) 30 Mg Capsule. 1 Cap PO DAILY Aspirin 81 Mg Tab.chew 1 Tab PO DAILY Synthroid (Levothyroxine Sodium) 88 Mcg Tablet 100 Mcg PO DAILY Latanoprost 2.5 Ml Drops 1 Drop EACHEYE QHS Vitals/I & O Vital Sign - Last 24 Hours 01/02/19 01/02/19 01/02/19 01/02/19 15:00 19:00 20:00 22:05 Temp 97.6 98.3 97.6 98.3 Pulse 90 103 103 Resp 20 20 B/P (MAP) 120/59 (79) 105/72 (83) 105/72 Pulse Ox 99 98 O2 Delivery Room Air Room Air Room Air 01/02/19 01/03/19 01/03/19 01/03/19 23:00 03:00 07:00 08:00 Temp 98.1 97.8 98.1 98.1 97.8 98.1 Pulse 89 96 80 Resp 20 20 18 B/P (MAP) 133/74 (93) 129/72 (91) 132/71 (91) Pulse Ox 98 95 97 O2 Delivery Room Air Room Air Room Air Room Air 01/03/19 11:26 Temp 98.6 98.6 Pulse 88 Resp 18 B/P (MAP) 122/66 (84) Pulse Ox 99 O2 Delivery Room Air Intake and Output 01/02/19 01/02/19 01/03/19 15:00 23:00 07:00 Intake Total 460 ml 540 ml 600 ml Output Total 1 ml 2 ml Balance 459 ml 538 ml 600 ml Nutrition Consultation Dietary Evaluation: Recommendations by RD: Increase Calorie Intake, Protein supplementation Comments: pt to try ensure pudding with dinner Expected Outcomes/Goals: to meet > 75 % est nutr needs Interpretation of weight loss: >5% in 1 month Malnutrition Findings: Food and Nutrition Intake (Sev: <50% est energy req 5days Weight Status: Obese BRIAN DARLING MD Jan 03, 2019 12:00
--- NOTE | 2019-01-03 12:41 | CONS ---
DATE OF CONSULTATION: 01/02/2019 REQUESTING PHYSICIAN: Dr. Brayan Oh. REASON FOR CONSULTATION: Non-Hodgkin's lymphoma, now admitted with neutropenic fever. HISTORY OF PRESENT ILLNESS: The patient is a 58-year-old female who was diagnosed with marginal zone lymphoma by a bone marrow biopsy on 10/10/2018. She was started on chemotherapy with bendamustine and rituximab on 11/17/2018. She received only one cycle. She was admitted to [facility] between 12/03/2018 to 12/10/2018. Allopurinol was on hold and she resumed allopurinol on 12/31/2018 and she developed a rash and fever. Hence, she came back to the hospital and she was admitted on 12/31/2018. She was noted to have neutropenia with a total WBC count of 1.9 and worse at 1.0 on 01/02/2019. Infectious Disease was consulted and she was started on antibiotics. PAST MEDICAL HISTORY: Hypertension and hypothyroidism. FAMILY HISTORY: Hypertension. SOCIAL HISTORY: No smoking or alcohol abuse. REVIEW OF SYSTEMS: A 12-point review of system was performed. Pertinent positives are mentioned in the history of present illness. Rest of the system review is negative. PHYSICAL EXAMINATION: GENERAL APPEARANCE: The patient is a 58-year-old female who is in no acute cardiorespiratory distress. VITAL SIGNS: Blood pressure 120/59, temperature 97.6. HEENT: Head atraumatic, normocephalic. Eyes: No icterus. NECK: Supple. CHEST: Bilaterally symmetrical. No crepitations or rhonchi heard. HEART: S1, S2 normal. ABDOMEN: Soft, nontender, no hepatosplenomegaly. CENTRAL NERVOUS SYSTEM: No focal deficits. LYMPHATICS: No lymphadenopathy. SKIN: She has a rash. PSYCHOLOGIC: Mood and affect are appropriate. MUSCULOSKELETAL: No joint effusions. LABORATORY DATA: On 01/02/2019, WBC 1, hemoglobin 7, platelet count 131. Absolute neutrophil count is 0.5. Creatinine 1.1. Total bilirubin 0.7. IMPRESSION AND PLAN: 1. Marginal zone lymphoma diagnosed by bone marrow biopsy on 10/10/2018. She has evidence of marked splenomegaly. She was started on chemotherapy with bendamustine and rituximab on 11/17/2018. Ultrasound of the abdomen on 12/03/2018 revealed that the spleen had improved to 16 cm and previously it was 26 cm. Further chemotherapy was deferred because of infection. She will follow up with me in 1-2 weeks. I will resume treatments when she is feeling better. 2. Neutropenia is worse, I will start Granix 480 mcg daily, suspect this is due to infection. 3. Fever. Appreciate ID consultation. She has been started on antibiotics. 4. Anemia. Continue to monitor hemoglobin. No signs of bleeding. If the hemoglobin drops to below 7, I will proceed with transfusion. I discussed with Dr. Whitman. 5. Splenomegaly due to lymphoma. Continue to monitor. SANGEETA HERNANDEZ MD DR: ROSY/nts JOB#: [id number] / [id number] FREIDA
[2019-01-03] MEDS: ENOXAPARIN 40 MG/0.4 ML SYRINGE. SQ SCH (14:32)
[2019-01-03 15:00] VITALS: BP 128/60
[2019-01-03 19:05] VITALS: BP 128/62
[2019-01-03] MEDS: TBO-FILGRASTIM 480 MCG/0.8 ML SYRINGE. SQ SCH (21:48)
[2019-01-03] MEDS: LATANOPROST 0.005% OPHTH SOLUTION 2.5ML BOTTLE. OU SCH (21:49)
[2019-01-03 23:13] VITALS: BP 142/73
[2019-01-03] MEDS ORDERED: HYDROcodone/APAP 5/325MG 1 TAB TABLET PO PRN (23:15)
[2019-01-03] MEDS: traZODone 50 MG TABLET. PO PRN (23:19)
[2019-01-04 03:07] VITALS: BP 138/78
[2019-01-04] MEDS: CEFEPIME HCL IV Push 2 GM VIAL. IVP SCH (06:11)
[2019-01-04] MEDS: LEVOTHYROXINE 100 MCG PO SCH (06:11)
[2019-01-04 06:44] LABS: BASO % 0 % (0-3); EOS # 0.2 x10^3/uL (0.0-0.7); EOS % 2 % (0-3); HEMATOCRIT 27.1 % (36.0-47.0); HEMOGLOBIN 9.2 g/dL (12.0-15.5); LYMPH # 0.6 x10^3/uL (1.0-4.8); LYMPH % 6 % (24-48); MEAN CORPUSCULAR HEMOGLOBIN 29 pg (25-35); MEAN CORPUSCULAR HGB CONC 34 g/dL (31-37); MEAN CORPUSCULAR VOLUME 85 fL (79-100); MONO # 0.7 x10^3/uL (0.0-1.1); MONO % 7 % (0-9); NEUT # 8.9 x10^3uL (1.8-7.7); NEUT % 85 % (31-73); PLATELET COUNT 153 x10^3/uL (140-400); RED BLOOD COUNT 3.18 x10^6/uL (3.50-5.40); RED CELL DISTRIBUTION WIDTH 20.3 % (11.5-14.5); WHITE BLOOD COUNT 10.5 x10^3/uL (4.0-11.0)
[2019-01-04 07:00] VITALS: BP 118/70
[2019-01-04 07:00] LABS: ALBUMIN 3.1 g/dL (3.4-5.0); ALBUMIN/GLOBULIN RATIO 1.3 (1.0-1.7); CALCIUM 8.7 mg/dL (8.5-10.1); CREATININE 0.9 mg/dL (0.6-1.0); GFR 64.3; POTASSIUM 3.7 mmol/L (3.5-5.1); TOTAL BILIRUBIN 0.9 mg/dL (0.2-1.0); TOTAL PROTEIN 5.4 g/dL (6.4-8.2)
[2019-01-04] MEDS: POTASSIUM CHLORIDE 20 MEQ TABLET.ER. PO SCH (08:00)
[2019-01-04] MEDS: METOPROLOL TART IMMED RELEASE 25 MG TABLET. PO SCH ×2 (09:00→21:00)
--- NOTE | 2019-01-04 09:46 | PDOC ---
PROGRESS NOTES History of Present Illness History of Present Illness Assessment/Plan Assessment/Plan IMPRESSION Marginal zone lymphoma on chemotherapy Neutropenic fever, hypomagnesemia hypothyroid state on replacement Anemia hgb 7.0 01/02 WORSENING PANCYTOPENIA Diarrhea 1 episode RECENT Colitis on CAT scan INDWelling right-sided Port-A-Cath for chemotherapy NOn Sustained V. tach, asymptomatic, 12/08/18 and today The Ejection Fraction is 60-65%. There is mild concentric left ventricular hypertrophy. Doppler and Color Flow revealed no significant aortic regurgitation.recent echo 01/02, FEVER LAST NIGHT, ON NEUTROPENIC PRECAUTIONS TEMP 101.3 LAST PM 01/04 REMAINS AT RISK FOR SEPSIS plan blood and urine cultures ID following replete lytes cbc in am, transfuse for hgb < 7 CARDIOLOGY following ONCOLOGY following HOME MEDS tele dvt prophylaxis Continue cefepime 45 MIN PT EXAM, CHART REVIEW, > 50% of time spent with exam, chart review, pt care coordination, at high risk of sepsis per my chart review Vitals Vitals Vital Signs Date Time Temp Pulse Resp B/P (MAP) Pulse Ox O2 Delivery O2 Flow Rate FiO2 01/04/19 07:00 97.9 104 18 118/70 (86) 97 Room Air 97.9 Physical Exam Physical Exam GENERAL: In chair, alert, NAD HEENT: No gross facial swelling. Oral cavity dry NECK: Supple LUNGS: Clear bilaterally. No wheezing. CARDIOVASCULAR: S1, S2. No murmurs or rubs. ABDOMEN: Soft, nontender, obese, BS + EXTREMITIES: No edema or cyanosis. DERM: Dry scaly skin. No rash FACILITIES FLIGHT CHECK PILOT: Alert and oriented. Port-A-Cath without signs of complications. General: Alert, Oriented X3, Cooperative, No acute distress, Other (appears fatigued) Heart: Regular rate, Normal S1, Normal S2 Lungs: Clear Abdomen: Soft, No tenderness, No hepatosplenomegaly Extremities: No clubbing, No cyanosis Skin: Other (anasarca, diffuse erythema) Labs LABS Laboratory Tests Test 01/04/19 06:25 White Blood Count 10.5 x10^3/uL (4.0-11.0) Red Blood Count 3.18 x10^6/uL (3.50-5.40) Hemoglobin 9.2 g/dL (12.0-15.5) Hematocrit 27.1 % (36.0-47.0) Mean Corpuscular Volume 85 fL (79-100) Mean Corpuscular Hemoglobin 29 pg (25-35) Mean Corpuscular Hemoglobin Concent 34 g/dL (31-37) Red Cell Distribution Width 20.3 % (11.5-14.5) Platelet Count 153 x10^3/uL (140-400) Neutrophils (%) (Auto) 85 % (31-73) Lymphocytes (%) (Auto) 6 % (24-48) Monocytes (%) (Auto) 7 % (0-9) Eosinophils (%) (Auto) 2 % (0-3) Basophils (%) (Auto) 0 % (0-3) Neutrophils # (Auto) 8.9 x10^3uL (1.8-7.7) Lymphocytes # (Auto) 0.6 x10^3/uL (1.0-4.8) Monocytes # (Auto) 0.7 x10^3/uL (0.0-1.1) Eosinophils # (Auto) 0.2 x10^3/uL (0.0-0.7) Basophils # (Auto) 0.0 x10^3/uL (0.0-0.2) Sodium Level 142 mmol/L (136-145) Potassium Level 3.7 mmol/L (3.5-5.1) Chloride Level 107 mmol/L (98-107) Carbon Dioxide Level 27 mmol/L (21-32) Anion Gap 8 (6-14) Blood Urea Nitrogen 8 mg/dL (7-20) Creatinine 0.9 mg/dL (0.6-1.0) Estimated GFR (Cockcroft-Gault) 64.3 BUN/Creatinine Ratio 9 (6-20) Glucose Level 103 mg/dL (70-99) Calcium Level 8.7 mg/dL (8.5-10.1) Total Bilirubin 0.9 mg/dL (0.2-1.0) Aspartate Amino Transf (AST/SGOT) 14 U/L (15-37) Alanine Aminotransferase (ALT/SGPT) 26 U/L (14-59) Alkaline Phosphatase 116 U/L (46-116) Total Protein 5.4 g/dL (6.4-8.2) Albumin 3.1 g/dL (3.4-5.0) Albumin/Globulin Ratio 1.3 (1.0-1.7) Assessment and Plan Assessmemt and Plan Problems Medical Problems: (1) Hypokalemia Status: Acute (2) Hypomagnesemia Status: Acute (3) Leukopenia Status: Acute (4) Neutropenic fever Status: Acute (5) SIRS (systemic inflammatory response syndrome) Status: Acute PATIENT: DEVAN LIU ACCT: [id number] LOC: [address] [place] [address] U : [id number] AGE/SX: 58/F ROOM: [facility] REG : 12/31/18 [facility] [address]: CATRACHO JNUG MD : 1960 BED: 1 DIS : STATUS: ADM IN TLOC: SPEC #: [id number] EDDIE: 12/31/18 STATUS: RES REQ #: [id number] RECD: 12/31/18-[address] [facility] [address]: SILVIO AGUILAR DO SOURCE: BLOOD ENTR: 12/31/18-[address] [facility] [address]: ISRAEL QUIÑONES MD [facility]: ORDERED: BCULT Procedure Result BLOOD CULTURE Preliminary NO GROWTH AFTER 3 DAYS Comment Review of Relevant I have reviewed the following items kike (where applicable) has been applied. Labs Laboratory Tests Test 01/03/19 06:05 01/04/19 06:25 White Blood Count 5.0 x10^3/uL (4.0-11.0) 10.5 x10^3/uL (4.0-11.0) Red Blood Count 2.98 x10^6/uL (3.50-5.40) 3.18 x10^6/uL (3.50-5.40) Hemoglobin 8.5 g/dL (12.0-15.5) 9.2 g/dL (12.0-15.5) Hematocrit 25.3 % (36.0-47.0) 27.1 % (36.0-47.0) Mean Corpuscular Volume 85 fL (79-100) 85 fL (79-100) Mean Corpuscular Hemoglobin 29 pg (25-35) 29 pg (25-35) Mean Corpuscular Hemoglobin Concent 34 g/dL (31-37) 34 g/dL (31-37) Red Cell Distribution Width 20.9 % (11.5-14.5) 20.3 % (11.5-14.5) Platelet Count 136 x10^3/uL (140-400) 153 x10^3/uL (140-400) Neutrophils (%) (Auto) 83 % (31-73) 85 % (31-73) Lymphocytes (%) (Auto) 6 % (24-48) 6 % (24-48) Monocytes (%) (Auto) 7 % (0-9) 7 % (0-9) Eosinophils (%) (Auto) 4 % (0-3) 2 % (0-3) Basophils (%) (Auto) 0 % (0-3) 0 % (0-3) Neutrophils # (Auto) 4.1 x10^3uL (1.8-7.7) 8.9 x10^3uL (1.8-7.7) Lymphocytes # (Auto) 0.3 x10^3/uL (1.0-4.8) 0.6 x10^3/uL (1.0-4.8) Monocytes # (Auto) 0.4 x10^3/uL (0.0-1.1) 0.7 x10^3/uL (0.0-1.1) Eosinophils # (Auto) 0.2 x10^3/uL (0.0-0.7) 0.2 x10^3/uL (0.0-0.7) Basophils # (Auto) 0.0 x10^3/uL (0.0-0.2) 0.0 x10^3/uL (0.0-0.2) Sodium Level 144 mmol/L (136-145) 142 mmol/L (136-145) Potassium Level 3.5 mmol/L (3.5-5.1) 3.7 mmol/L (3.5-5.1) Chloride Level 109 mmol/L (98-107) 107 mmol/L (98-107) Carbon Dioxide Level 25 mmol/L (21-32) 27 mmol/L (21-32) Anion Gap 10 (6-14) 8 (6-14) Blood Urea Nitrogen 10 mg/dL (7-20) 8 mg/dL (7-20) Creatinine 0.8 mg/dL (0.6-1.0) 0.9 mg/dL (0.6-1.0) Estimated GFR (Cockcroft-Gault) 73.7 64.3 Glucose Level 98 mg/dL (70-99) 103 mg/dL (70-99) Calcium Level 8.1 mg/dL (8.5-10.1) 8.7 mg/dL (8.5-10.1) BUN/Creatinine Ratio 9 (6-20) Total Bilirubin 0.9 mg/dL (0.2-1.0) Aspartate Amino Transf (AST/SGOT) 14 U/L (15-37) Alanine Aminotransferase (ALT/SGPT) 26 U/L (14-59) Alkaline Phosphatase 116 U/L (46-116) Total Protein 5.4 g/dL (6.4-8.2) Albumin 3.1 g/dL (3.4-5.0) Albumin/Globulin Ratio 1.3 (1.0-1.7) Laboratory Tests Test 01/04/19 06:25 White Blood Count 10.5 x10^3/uL (4.0-11.0) Red Blood Count 3.18 x10^6/uL (3.50-5.40) Hemoglobin 9.2 g/dL (12.0-15.5) Hematocrit 27.1 % (36.0-47.0) Mean Corpuscular Volume 85 fL (79-100) Mean Corpuscular Hemoglobin 29 pg (25-35) Mean Corpuscular Hemoglobin Concent 34 g/dL (31-37) Red Cell Distribution Width 20.3 % (11.5-14.5) Platelet Count 153 x10^3/uL (140-400) Neutrophils (%) (Auto) 85 % (31-73) Lymphocytes (%) (Auto) 6 % (24-48) Monocytes (%) (Auto) 7 % (0-9) Eosinophils (%) (Auto) 2 % (0-3) Basophils (%) (Auto) 0 % (0-3) Neutrophils # (Auto) 8.9 x10^3uL (1.8-7.7) Lymphocytes # (Auto) 0.6 x10^3/uL (1.0-4.8) Monocytes # (Auto) 0.7 x10^3/uL (0.0-1.1) Eosinophils # (Auto) 0.2 x10^3/uL (0.0-0.7) Basophils # (Auto) 0.0 x10^3/uL (0.0-0.2) Sodium Level 142 mmol/L (136-145) Potassium Level 3.7 mmol/L (3.5-5.1) Chloride Level 107 mmol/L (98-107) Carbon Dioxide Level 27 mmol/L (21-32) Anion Gap 8 (6-14) Blood Urea Nitrogen 8 mg/dL (7-20) Creatinine 0.9 mg/dL (0.6-1.0) Estimated GFR (Cockcroft-Gault) 64.3 BUN/Creatinine Ratio 9 (6-20) Glucose Level 103 mg/dL (70-99) Calcium Level 8.7 mg/dL (8.5-10.1) Total Bilirubin 0.9 mg/dL (0.2-1.0) Aspartate Amino Transf (AST/SGOT) 14 U/L (15-37) Alanine Aminotransferase (ALT/SGPT) 26 U/L (14-59) Alkaline Phosphatase 116 U/L (46-116) Total Protein 5.4 g/dL (6.4-8.2) Albumin 3.1 g/dL (3.4-5.0) Albumin/Globulin Ratio 1.3 (1.0-1.7) Microbiology 12/31/18 Blood Culture - Preliminary, Resulted NO GROWTH AFTER 3 DAYS Medications Current Medications Sodium Chloride 1,000 ml @ 1,000 mls/hr 1X ONCE IV Last administered on at 15:54; Start 12/31/18 at 14:45; Stop 12/31/18 at 15:44; Status DC Acetaminophen (Tylenol) 500 mg 1X ONCE PO Last administered on 12/31/18at 15:53 ; Start 12/31/18 at 15:30; Stop 12/31/18 at 15:34; Status DC Sodium Chloride 1,000 ml @ 1,000 mls/hr 1X ONCE IV Last administered on at 15:54; Start 12/31/18 at 15:45; Stop 12/31/18 at 16:44; Status DC Cefepime HCl (Maxipime) 2 gm 1X ONCE IVP Last administered on 12/31/18at 17:58 ; Start 12/31/18 at 15:45; Stop 12/31/18 at 15:46; Status DC Potassium Chloride (Klor-Con) 40 meq 1X ONCE PO Last administered on at 17:06; Start 12/31/18 at 16:00; Stop 12/31/18 at 16:01; Status DC Magnesium Sulfate 50 ml @ 25 mls/hr 1X ONCE IV Last administered on 12/31/18at 17:07; Start 12/31/18 at 16:00; Stop 12/31/18 at 17:59; Status DC Acetaminophen (Tylenol) 650 mg PRN Q4HRS PRN PO FEVER Last administered on 01/01at 05:42; Start 12/31/18 at 16:00; Stop 01/01/19 at 15:59; Status DC Diphenhydramine HCl (Benadryl) 25 mg 1X ONCE PO Last administered on at 00:22; Start 12/31/18 at 23:15; Stop 12/31/18 at 23:16; Status DC Metoprolol Tartrate (Lopressor) 25 mg DAILY PO ; Start 01/01/19 at 09:00; Stop 01/01/19 at 17:04; Status DC Cefepime HCl (Maxipime) 1 gm Q12HR IVP ; Start 01/01/19 at 12:30; Stop 01/01/19 at 12:30; Status DC Cefepime HCl (Maxipime) 1 gm Q12HR IVP ; Start 01/01/19 at 12:30; Status Cancel Magnesium Sulfate 50 ml @ 25 mls/hr 1X ONCE IV Last administered on 01/01/19at 14:28; Start 01/01/19 at 13:15; Stop 01/01/19 at 15:14; Status DC Aspirin (Children'S Aspirin) 81 mg DAILY PO Last administered on 01/03/19at 08: 36; Start 01/02/19 at 09:00 Duloxetine HCl (Cymbalta) 30 mg DAILY PO Last administered on 01/03/19at 08:36; Start 01/02/19 at 09:00 Non-Formulary Medication 1 ea DAILY06 PO Last administered on 01/04/19at 06:11; Start 01/02/19 at 06:00 Non-Formulary Medication (Biotin ) 10,000 mcg DAILY PO ; Start 01/02/19 at 09:00 ; Status UNV Latanoprost (Xalatan) 1 drop QHS OU Last administered on 01/03/19at 21:49; Start 01/01/19 at 21:00 Multivitamins (Thera M Plus) 1 tab DAILY PO Last administered on 01/03/19 08: 36; Start 01/02/19 at 09:00 Enoxaparin Sodium (Lovenox 40mg Syringe) 40 mg Q24H SQ Last administered on 16:01; Start 01/01/19 at 15:00 Potassium Chloride (Klor-Con) 40 meq 1X ONCE PO Last administered on 16:02; Start 01/01/19 at 15:00; Stop 01/01/19 at 15:01; Status DC Potassium Chloride (Klor-Con) 20 meq DAILYWBKFT PO Last administered on 08:49; Start 01/02/19 at 08:00 Metoprolol Tartrate (Lopressor) 12.5 mg BID PO ; Start 01/01/19 at 21:00 Cefepime HCl (Maxipime) 1 gm Q12HR IVP Last administered on 01/02/19at 08:48; Start 01/01/19 at 20:00; Stop 01/02/19 at 13:04; Status DC Tbo-Filgrastim (Granix) 480 mcg QHS SQ Last administered on 01/03/19 21:48; Start 01/02/19 at 21:00 Cefepime HCl (Maxipime) 2 gm Q8HRS IVP Last administered on 01/04/19 06:11; Start 01/02/19 at 14:00 Lactobacillus Rhamnosus (Culturelle) 1 cap BID PO Last administered on at 21:49; Start 01/02/19 at 21:00 Acetaminophen/ Hydrocodone Bitart (Lortab 5/325) 1 tab PRN Q6HRS PRN PO PAIN; Start 01/03/19 at 23:15 Trazodone HCl (Desyrel) 50 mg PRN QHS PRN PO INSOMNIA Last administered on 01/03at 23:19; Start 01/03/19 at 23:15 Active Scripts Active Reported Biotin 10,000 Mcg Capsule 10,000 Mcg PO DAILY Multivitamins (Multivitamin) 1 Each Tablet 1 Each PO DAILY Metoprolol Tartrate 25 Mg Tablet 25 Mg PO DAILY Cymbalta (Duloxetine Hcl) 30 Mg Capsule.dr Lindquist Cap PO DAILY Aspirin 81 Mg Tab.chew 1 Tab PO DAILY Synthroid (Levothyroxine Sodium) 88 Mcg Tablet 100 Mcg PO DAILY Latanoprost 2.5 Ml Drops 1 Drop [facility] Vitals/I & O Vital Sign - Last 24 Hours 01/03/19 01/03/19 01/03/19 01/03/19 11:26 15:00 19:05 20:00 Temp 98.6 98.4 99.0 98.6 98.4 99.0 Pulse 88 87 91 Resp 18 16 20 B/P (MAP) 122/66 (84) 128/60 (82) 128/62 (84) Pulse Ox 99 96 99 O2 Delivery Room Air Room Air Room Air Room Air 01/03/19 01/04/19 01/04/19 23:13 03:07 07:00 Temp 98.2 98.1 97.9 98.2 98.1 97.9 Pulse 108 107 104 Resp 18 B/P (MAP) 142/73 (96) 138/78 (98) 118/70 (86) Pulse Ox 100 95 97 O2 Delivery Room Air Room Air Room Air Intake and Output 01/03/19 01/03/19 01/04/19 14:59 22:59 06:59 Intake Total 300 ml 310 ml Balance 300 ml 310 ml Nutrition Consultation Dietary Evaluation: Recommendations by RD: Increase Calorie Intake, Protein supplementation Comments: pt to try ensure pudding with dinner Expected Outcomes/Goals: to meet > 75 % est nutr needs Interpretation of weight loss: >5% in 1 month Malnutrition Findings: Food and Nutrition Intake (Sev: <50% est energy req 5days Weight Status: Obese BRIAN DARLING MD Jan 04, 2019 09:46
[2019-01-04] MEDS: MULTIVITAMIN with MINERAL TABLET. PO SCH (09:52)
[2019-01-04] MEDS: DULoxetine HCL 30 MG CAPSULE.DR PO SCH (09:52)
[2019-01-04] MEDS: ASPIRIN CHEWABLE 81 MG TABLET. PO SCH (09:53)
[2019-01-04] MEDS: LACTOBACILLUS RHAMNOSUS GG 1 CAPSULE. PO SCH ×2 (09:53→21:31)
[2019-01-04 11:00] VITALS: BP 141/84
--- NOTE | 2019-01-04 11:47 | PDOC ---
Infectious Disease Note Subjective Subjective Feeling alright this morning, Had ? back gas pain last pm but better. No dysuria freq urgency Swelling and rash are improving Some nausea and diarrhea Appetite diminished some still Vital Sign Vital Signs Vital Signs Date Time Temp Pulse Resp B/P (MAP) Pulse Ox O2 Delivery O2 Flow Rate FiO2 01/04/19 09:00 104 118/70 01/04/19 07:00 97.9 18 97 Room Air 97.9 Physical Exam PHYSICAL EXAM GENERAL: In chair, alert, NAD HEENT: No gross facial swelling. Oral cavity dry NECK: Supple LUNGS: Clear bilaterally. No wheezing. CARDIOVASCULAR: S1, S2. No murmurs or rubs. ABDOMEN: Soft, nontender, obese, BS + EXTREMITIES: No edema or cyanosis. DERM: Dry scaly skin. No rash LPN PER DIEM: Alert and oriented. Port-A-Cath without signs of complications. Labs Lab Laboratory Tests Test 01/04/19 06:25 White Blood Count 10.5 x10^3/uL (4.0-11.0) Red Blood Count 3.18 x10^6/uL (3.50-5.40) Hemoglobin 9.2 g/dL (12.0-15.5) Hematocrit 27.1 % (36.0-47.0) Mean Corpuscular Volume 85 fL (79-100) Mean Corpuscular Hemoglobin 29 pg (25-35) Mean Corpuscular Hemoglobin Concent 34 g/dL (31-37) Red Cell Distribution Width 20.3 % (11.5-14.5) Platelet Count 153 x10^3/uL (140-400) Neutrophils (%) (Auto) 85 % (31-73) Lymphocytes (%) (Auto) 6 % (24-48) Monocytes (%) (Auto) 7 % (0-9) Eosinophils (%) (Auto) 2 % (0-3) Basophils (%) (Auto) 0 % (0-3) Neutrophils # (Auto) 8.9 x10^3uL (1.8-7.7) Lymphocytes # (Auto) 0.6 x10^3/uL (1.0-4.8) Monocytes # (Auto) 0.7 x10^3/uL (0.0-1.1) Eosinophils # (Auto) 0.2 x10^3/uL (0.0-0.7) Basophils # (Auto) 0.0 x10^3/uL (0.0-0.2) Sodium Level 142 mmol/L (136-145) Potassium Level 3.7 mmol/L (3.5-5.1) Chloride Level 107 mmol/L (98-107) Carbon Dioxide Level 27 mmol/L (21-32) Anion Gap 8 (6-14) Blood Urea Nitrogen 8 mg/dL (7-20) Creatinine 0.9 mg/dL (0.6-1.0) Estimated GFR (Cockcroft-Gault) 64.3 BUN/Creatinine Ratio 9 (6-20) Glucose Level 103 mg/dL (70-99) Calcium Level 8.7 mg/dL (8.5-10.1) Total Bilirubin 0.9 mg/dL (0.2-1.0) Aspartate Amino Transf (AST/SGOT) 14 U/L (15-37) Alanine Aminotransferase (ALT/SGPT) 26 U/L (14-59) Alkaline Phosphatase 116 U/L (46-116) Total Protein 5.4 g/dL (6.4-8.2) Albumin 3.1 g/dL (3.4-5.0) Albumin/Globulin Ratio 1.3 (1.0-1.7) Micro Microbiology 12/31/18 Blood Culture - Preliminary, Resulted NO GROWTH AFTER 3 DAYS Objective Assessment Fever could be infectious vs inflammatory from drug reaction - better Leukopenia from chemotherapy. s/p Granix 01/02 - better Lymphoma, on chemotherapy. Hyperbilirubinemia chronic,abn lfts improved from before Hypokalemia/Hypomagnesemia.on supplements Chronic dermatitis with dry scaly skin from before improved Superimposed generalized rash, resolving Acute kidney injury. Protein-calorie malnutrition. Anemia and thrombocytopenia from chemo Plan Plan of Care Discontinue cefepime BC NGTD Monitor labs/temp Supportive care. D/w at bedside VERONICA SHAH MD Jan 04, 2019 11:47
[2019-01-04 15:00] VITALS: BP 131/71
[2019-01-04] MEDS: ENOXAPARIN 40 MG/0.4 ML SYRINGE. SQ SCH (15:00)
[2019-01-04 19:54] VITALS: BP 125/73
[2019-01-04] MEDS: traZODone 50 MG TABLET. PO PRN (21:31)
[2019-01-04] MEDS: LATANOPROST 0.005% OPHTH SOLUTION 2.5ML BOTTLE. OU SCH (21:31)
[2019-01-04 23:51] VITALS: BP 116/58
[2019-01-05 03:42] VITALS: BP 132/69
[2019-01-05] MEDS: LEVOTHYROXINE 100 MCG PO SCH (05:45)
[2019-01-05 06:11] LABS: BASO % 0 % (0-3); EOS # 0.1 x10^3/uL (0.0-0.7); EOS % 3 % (0-3); HEMATOCRIT 23.9 % (36.0-47.0); HEMOGLOBIN 8.2 g/dL (12.0-15.5); LYMPH # 0.4 x10^3/uL (1.0-4.8); LYMPH % 7 % (24-48); MEAN CORPUSCULAR HEMOGLOBIN 29 pg (25-35); MEAN CORPUSCULAR HGB CONC 34 g/dL (31-37); MEAN CORPUSCULAR VOLUME 85 fL (79-100); MONO # 0.4 x10^3/uL (0.0-1.1); MONO % 8 % (0-9); NEUT # 3.9 x10^3uL (1.8-7.7); NEUT % 82 % (31-73); PLATELET COUNT 124 x10^3/uL (140-400); RED BLOOD COUNT 2.81 x10^6/uL (3.50-5.40); RED CELL DISTRIBUTION WIDTH 20.3 % (11.5-14.5); WHITE BLOOD COUNT 4.8 x10^3/uL (4.0-11.0)
[2019-01-05 06:40] LABS: ALBUMIN 2.9 g/dL (3.4-5.0); ALBUMIN/GLOBULIN RATIO 1.3 (1.0-1.7); CALCIUM 8.4 mg/dL (8.5-10.1); CREATININE 0.9 mg/dL (0.6-1.0); GFR 64.3; TOTAL BILIRUBIN 0.6 mg/dL (0.2-1.0); TOTAL PROTEIN 5.1 g/dL (6.4-8.2)
[2019-01-05 07:00] VITALS: BP 128/71
[2019-01-05] MEDS: METOPROLOL TART IMMED RELEASE 25 MG TABLET. PO SCH (09:00)
--- NOTE | 2019-01-05 09:18 | PDOC ---
PROGRESS NOTES Subjective Subjective HPI - f/u of Marginal zone lymphoma ROS - no fever Objective Objective Vital Signs Date Time Temp Pulse Resp B/P (MAP) Pulse Ox O2 Delivery O2 Flow Rate FiO2 01/05/19 07:00 98.8 98 16 128/71 (90) 96 Room Air 98.8 Intake and Output 01/05/19 07:00 Intake Total 200 ml Balance 200 ml Intake Oral 200 ml # Voids 4 Physical Exam Abdomen: No tenderness Heart: Normal S1, Normal S2 General: Alert, Oriented X3, No acute distress Neuro: Normal speech Psych/Mental Status: Mental status NL Assessment Assessment Problems Medical Problems: (1) Hypokalemia Status: Acute (2) Hypomagnesemia Status: Acute (3) Leukopenia Status: Acute (4) Neutropenic fever Status: Acute (5) SIRS (systemic inflammatory response syndrome) Status: Acute IMPRESSION AND PLAN: 1. Marginal zone lymphoma diagnosed by bone marrow biopsy on 10/10/2018. She has evidence of marked splenomegaly. She was started on chemotherapy with bendamustine and rituximab on 11/17/2018. Ultrasound of the abdomen on 12/03/2018 revealed that the spleen had improved to 16 cm and previously it was 26 cm. Further chemotherapy was deferred because of infection. She will follow up with me in 1-2 weeks. I will resume treatments when she is feeling better. 2. Neutropenia s/p Granix 480 mcg daily, WBC now 4.8 off granix. 3. Fever. Appreciate ID consultation. She has been started on antibiotics. 4. Anemia. Continue to monitor hemoglobin. No signs of bleeding. If the hemoglobin drops to below 7, I will proceed with transfusion. I discussed with Dr. Whitman. Hb 8.2 5. Splenomegaly due to lymphoma. Continue to monitor. f/u with me next week Comment Review of Relevant I have reviewed the following items kike (where applicable) has been applied. Labs Laboratory Tests Test 01/04/19 06:25 01/05/19 05:45 White Blood Count 10.5 x10^3/uL (4.0-11.0) 4.8 x10^3/uL (4.0-11.0) Red Blood Count 3.18 x10^6/uL (3.50-5.40) 2.81 x10^6/uL (3.50-5.40) Hemoglobin 9.2 g/dL (12.0-15.5) 8.2 g/dL (12.0-15.5) Hematocrit 27.1 % (36.0-47.0) 23.9 % (36.0-47.0) Mean Corpuscular Volume 85 fL (79-100) 85 fL (79-100) Mean Corpuscular Hemoglobin 29 pg (25-35) 29 pg (25-35) Mean Corpuscular Hemoglobin Concent 34 g/dL (31-37) 34 g/dL (31-37) Red Cell Distribution Width 20.3 % (11.5-14.5) 20.3 % (11.5-14.5) Platelet Count 153 x10^3/uL (140-400) 124 x10^3/uL (140-400) Neutrophils (%) (Auto) 85 % (31-73) 82 % (31-73) Lymphocytes (%) (Auto) 6 % (24-48) 7 % (24-48) Monocytes (%) (Auto) 7 % (0-9) 8 % (0-9) Eosinophils (%) (Auto) 2 % (0-3) 3 % (0-3) Basophils (%) (Auto) 0 % (0-3) 0 % (0-3) Neutrophils # (Auto) 8.9 x10^3uL (1.8-7.7) 3.9 x10^3uL (1.8-7.7) Lymphocytes # (Auto) 0.6 x10^3/uL (1.0-4.8) 0.4 x10^3/uL (1.0-4.8) Monocytes # (Auto) 0.7 x10^3/uL (0.0-1.1) 0.4 x10^3/uL (0.0-1.1) Eosinophils # (Auto) 0.2 x10^3/uL (0.0-0.7) 0.1 x10^3/uL (0.0-0.7) Basophils # (Auto) 0.0 x10^3/uL (0.0-0.2) 0.0 x10^3/uL (0.0-0.2) Sodium Level 142 mmol/L (136-145) 140 mmol/L (136-145) Potassium Level 3.7 mmol/L (3.5-5.1) 3.0 mmol/L (3.5-5.1) Chloride Level 107 mmol/L (98-107) 106 mmol/L (98-107) Carbon Dioxide Level 27 mmol/L (21-32) 28 mmol/L (21-32) Anion Gap 8 (6-14) 6 (6-14) Blood Urea Nitrogen 8 mg/dL (7-20) 7 mg/dL (7-20) Creatinine 0.9 mg/dL (0.6-1.0) 0.9 mg/dL (0.6-1.0) Estimated GFR (Cockcroft-Gault) 64.3 64.3 BUN/Creatinine Ratio 9 (6-20) 8 (6-20) Glucose Level 103 mg/dL (70-99) 108 mg/dL (70-99) Calcium Level 8.7 mg/dL (8.5-10.1) 8.4 mg/dL (8.5-10.1) Total Bilirubin 0.9 mg/dL (0.2-1.0) 0.6 mg/dL (0.2-1.0) Aspartate Amino Transf (AST/SGOT) 14 U/L (15-37) 16 U/L (15-37) Alanine Aminotransferase (ALT/SGPT) 26 U/L (14-59) 24 U/L (14-59) Alkaline Phosphatase 116 U/L (46-116) 118 U/L (46-116) Total Protein 5.4 g/dL (6.4-8.2) 5.1 g/dL (6.4-8.2) Albumin 3.1 g/dL (3.4-5.0) 2.9 g/dL (3.4-5.0) Albumin/Globulin Ratio 1.3 (1.0-1.7) 1.3 (1.0-1.7) Laboratory Tests Test 01/05/19 05:45 White Blood Count 4.8 x10^3/uL (4.0-11.0) Red Blood Count 2.81 x10^6/uL (3.50-5.40) Hemoglobin 8.2 g/dL (12.0-15.5) Hematocrit 23.9 % (36.0-47.0) Mean Corpuscular Volume 85 fL (79-100) Mean Corpuscular Hemoglobin 29 pg (25-35) Mean Corpuscular Hemoglobin Concent 34 g/dL (31-37) Red Cell Distribution Width 20.3 % (11.5-14.5) Platelet Count 124 x10^3/uL (140-400) Neutrophils (%) (Auto) 82 % (31-73) Lymphocytes (%) (Auto) 7 % (24-48) Monocytes (%) (Auto) 8 % (0-9) Eosinophils (%) (Auto) 3 % (0-3) Basophils (%) (Auto) 0 % (0-3) Neutrophils # (Auto) 3.9 x10^3uL (1.8-7.7) Lymphocytes # (Auto) 0.4 x10^3/uL (1.0-4.8) Monocytes # (Auto) 0.4 x10^3/uL (0.0-1.1) Eosinophils # (Auto) 0.1 x10^3/uL (0.0-0.7) Basophils # (Auto) 0.0 x10^3/uL (0.0-0.2) Sodium Level 140 mmol/L (136-145) Potassium Level 3.0 mmol/L (3.5-5.1) Chloride Level 106 mmol/L (98-107) Carbon Dioxide Level 28 mmol/L (21-32) Anion Gap 6 (6-14) Blood Urea Nitrogen 7 mg/dL (7-20) Creatinine 0.9 mg/dL (0.6-1.0) Estimated GFR (Cockcroft-Gault) 64.3 BUN/Creatinine Ratio 8 (6-20) Glucose Level 108 mg/dL (70-99) Calcium Level 8.4 mg/dL (8.5-10.1) Total Bilirubin 0.6 mg/dL (0.2-1.0) Aspartate Amino Transf (AST/SGOT) 16 U/L (15-37) Alanine Aminotransferase (ALT/SGPT) 24 U/L (14-59) Alkaline Phosphatase 118 U/L (46-116) Total Protein 5.1 g/dL (6.4-8.2) Albumin 2.9 g/dL (3.4-5.0) Albumin/Globulin Ratio 1.3 (1.0-1.7) Microbiology 12/31/18 Blood Culture - Preliminary, Resulted NO GROWTH AFTER 4 DAYS Medications Current Medications Sodium Chloride 1,000 ml @ 1,000 mls/hr 1X ONCE IV Last administered on at 15:54; Start 12/31/18 at 14:45; Stop 12/31/18 at 15:44; Status DC Acetaminophen (Tylenol) 500 mg 1X ONCE PO Last administered on 12/31/18at 15:53 ; Start 12/31/18 at 15:30; Stop 12/31/18 at 15:34; Status DC Sodium Chloride 1,000 ml @ 1,000 mls/hr 1X ONCE IV Last administered on at 15:54; Start 12/31/18 at 15:45; Stop 12/31/18 at 16:44; Status DC Cefepime HCl (Maxipime) 2 gm 1X ONCE IVP Last administered on 12/31/18at 17:58 ; Start 12/31/18 at 15:45; Stop 12/31/18 at 15:46; Status DC Potassium Chloride (Klor-Con) 40 meq 1X ONCE PO Last administered on at 17:06; Start 12/31/18 at 16:00; Stop 12/31/18 at 16:01; Status DC Magnesium Sulfate 50 ml @ 25 mls/hr 1X ONCE IV Last administered on 12/31/18at 17:07; Start 12/31/18 at 16:00; Stop 12/31/18 at 17:59; Status DC Acetaminophen (Tylenol) 650 mg PRN Q4HRS PRN PO FEVER Last administered on 01/01at 05:42; Start 12/31/18 at 16:00; Stop 01/01/19 at 15:59; Status DC Diphenhydramine HCl (Benadryl) 25 mg 1X ONCE PO Last administered on at 00:22; Start 12/31/18 at 23:15; Stop 12/31/18 at 23:16; Status DC Metoprolol Tartrate (Lopressor) 25 mg DAILY PO ; Start 01/01/19 at 09:00; Stop 01/01/19 at 17:04; Status DC Cefepime HCl (Maxipime) 1 gm Q12HR IVP ; Start 01/01/19 at 12:30; Stop 01/01/19 at 12:30; Status DC Cefepime HCl (Maxipime) 1 gm Q12HR IVP ; Start 01/01/19 at 12:30; Status Cancel Magnesium Sulfate 50 ml @ 25 mls/hr 1X ONCE IV Last administered on 01/01/19 14:28; Start 01/01/19 at 13:15; Stop 01/01/19 at 15:14; Status DC Aspirin (Children'S Aspirin) 81 mg DAILY PO Last administered on 01/04/19 09: 53; Start 01/02/19 at 09:00 Duloxetine HCl (Cymbalta) 30 mg DAILY PO Last administered on 01/04/19 09:52; Start 01/02/19 at 09:00 Non-Formulary Medication 1 ea DAILY06 PO Last administered on 01/05/19 05:45; Start 01/02/19 at 06:00 Non-Formulary Medication (Biotin ) 10,000 mcg DAILY PO ; Start 01/02/19 at 09:00 ; Status UNV Latanoprost (Xalatan) 1 drop QHS OU Last administered on 01/04/19 21:31; Start 01/01/19 at 21:00 Multivitamins (Thera M Plus) 1 tab DAILY PO Last administered on 01/04/19 09: 52; Start 01/02/19 at 09:00 Enoxaparin Sodium (Lovenox 40mg Syringe) 40 mg Q24H SQ Last administered on 16:01; Start 01/01/19 at 15:00 Potassium Chloride (Klor-Con) 40 meq 1X ONCE PO Last administered on 16:02; Start 01/01/19 at 15:00; Stop 01/01/19 at 15:01; Status DC Potassium Chloride (Klor-Con) 20 meq DAILYWBKFT PO Last administered on 08:49; Start 01/02/19 at 08:00 Metoprolol Tartrate (Lopressor) 12.5 mg BID PO ; Start 01/01/19 at 21:00 Cefepime HCl (Maxipime) 1 gm Q12HR IVP Last administered on 01/02/19 08:48; Start 01/01/19 at 20:00; Stop 01/02/19 at 13:04; Status DC Tbo-Filgrastim (Granix) 480 mcg QHS SQ Last administered on 01/03/19 21:48; Start 01/02/19 at 21:00; Stop 01/04/19 at 16:08; Status DC Cefepime HCl (Maxipime) 2 gm Q8HRS IVP Last administered on 01/04/19at 06:11; Start 01/02/19 at 14:00; Stop 01/04/19 at 12:36; Status DC Lactobacillus Rhamnosus (Culturelle) 1 cap BID PO Last administered on at 21:31; Start 01/02/19 at 21:00 Acetaminophen/ Hydrocodone Bitart (Lortab 5/325) 1 tab PRN Q6HRS PRN PO PAIN; Start 01/03/19 at 23:15 Trazodone HCl (Desyrel) 50 mg PRN QHS PRN PO INSOMNIA Last administered on 01/04at 21:31; Start 01/03/19 at 23:15 Active Scripts Active Reported Biotin 10,000 Mcg Capsule 10,000 Mcg PO DAILY Multivitamins (Multivitamin) 1 Each Tablet 1 Each PO DAILY Metoprolol Tartrate 25 Mg Tablet 25 Mg PO DAILY Cymbalta (Duloxetine Hcl) 30 Mg Capsule.dr 1 Cap PO DAILY Aspirin 81 Mg Tab.chew 1 Tab PO DAILY Synthroid (Levothyroxine Sodium) 88 Mcg Tablet 100 Mcg PO DAILY Latanoprost 2.5 Ml Drops 1 Drop EACHEYE QHS Vitals/I & O Vital Sign - Last 24 Hours 01/04/19 01/04/19 01/04/19 01/04/19 11:00 15:00 19:54 20:00 Temp 98.2 98.4 98.2 98.4 Pulse 104 94 100 Resp 20 18 20 B/P (MAP) 141/84 (103) 131/71 (91) 125/73 (90) Pulse Ox 99 97 98 O2 Delivery Room Air Room Air Room Air Room Air 01/04/19 01/05/19 01/05/19 23:51 03:42 07:00 Temp 97.9 98.2 98.8 97.9 98.2 98.8 Pulse 100 69 98 Resp 16 16 16 B/P (MAP) 116/58 (77) 132/69 (90) 128/71 (90) Pulse Ox 95 95 96 O2 Delivery Room Air Room Air Room Air Intake and Output 01/04/19 01/04/19 01/05/19 15:00 23:00 07:00 Intake Total 200 ml Balance 200 ml Nutrition Consultation Dietary Evaluation: Recommendations by RD: Increase Calorie Intake, Protein supplementation Comments: pt to try ensure pudding with dinner Expected Outcomes/Goals: to meet > 75 % est nutr needs Interpretation of weight loss: >5% in 1 month Malnutrition Findings: Food and Nutrition Intake (Sev: <50% est energy req 5days Weight Status: Obese SANGEETA HERNANDEZ MD Jan 05, 2019 09:18
[2019-01-05] MEDS: DULoxetine HCL 30 MG CAPSULE.DR PO SCH (10:13)
[2019-01-05] MEDS: MULTIVITAMIN with MINERAL TABLET. PO SCH (10:14)
[2019-01-05] MEDS: ASPIRIN CHEWABLE 81 MG TABLET. PO SCH (10:14)
[2019-01-05] MEDS: POTASSIUM CHLORIDE 20 MEQ TABLET.ER. PO SCH (10:15)
[2019-01-05] MEDS: LACTOBACILLUS RHAMNOSUS GG 1 CAPSULE. PO SCH (10:18)
--- NOTE | 2019-01-05 10:30 | PDOC ---
Infectious Disease Note Subjective Subjective Feeling better this morning,- appetite better No F/C/S/N/V/D/SOA Vital Sign Vital Signs Vital Signs Date Time Temp Pulse Resp B/P (MAP) Pulse Ox O2 Delivery O2 Flow Rate FiO2 01/05/19 07:00 98.8 98 16 128/71 (90) 96 Room Air 98.8 Physical Exam PHYSICAL EXAM GENERAL: In chair, alert, NAD HEENT: No gross facial swelling. Oral cavity dry NECK: Supple LUNGS: Clear bilaterally. No wheezing. CARDIOVASCULAR: S1, S2. No murmurs or rubs. ABDOMEN: Soft, nontender, obese, BS + EXTREMITIES: No edema or cyanosis. DERM: Dry scaly skin. No rash PLANT OPERATIONS MANAGER: Alert and oriented. Port-A-Cath without signs of complications. Labs Lab Laboratory Tests Test 01/05/19 05:45 White Blood Count 4.8 x10^3/uL (4.0-11.0) Red Blood Count 2.81 x10^6/uL (3.50-5.40) Hemoglobin 8.2 g/dL (12.0-15.5) Hematocrit 23.9 % (36.0-47.0) Mean Corpuscular Volume 85 fL (79-100) Mean Corpuscular Hemoglobin 29 pg (25-35) Mean Corpuscular Hemoglobin Concent 34 g/dL (31-37) Red Cell Distribution Width 20.3 % (11.5-14.5) Platelet Count 124 x10^3/uL (140-400) Neutrophils (%) (Auto) 82 % (31-73) Lymphocytes (%) (Auto) 7 % (24-48) Monocytes (%) (Auto) 8 % (0-9) Eosinophils (%) (Auto) 3 % (0-3) Basophils (%) (Auto) 0 % (0-3) Neutrophils # (Auto) 3.9 x10^3uL (1.8-7.7) Lymphocytes # (Auto) 0.4 x10^3/uL (1.0-4.8) Monocytes # (Auto) 0.4 x10^3/uL (0.0-1.1) Eosinophils # (Auto) 0.1 x10^3/uL (0.0-0.7) Basophils # (Auto) 0.0 x10^3/uL (0.0-0.2) Sodium Level 140 mmol/L (136-145) Potassium Level 3.0 mmol/L (3.5-5.1) Chloride Level 106 mmol/L (98-107) Carbon Dioxide Level 28 mmol/L (21-32) Anion Gap 6 (6-14) Blood Urea Nitrogen 7 mg/dL (7-20) Creatinine 0.9 mg/dL (0.6-1.0) Estimated GFR (Cockcroft-Gault) 64.3 BUN/Creatinine Ratio 8 (6-20) Glucose Level 108 mg/dL (70-99) Calcium Level 8.4 mg/dL (8.5-10.1) Total Bilirubin 0.6 mg/dL (0.2-1.0) Aspartate Amino Transf (AST/SGOT) 16 U/L (15-37) Alanine Aminotransferase (ALT/SGPT) 24 U/L (14-59) Alkaline Phosphatase 118 U/L (46-116) Total Protein 5.1 g/dL (6.4-8.2) Albumin 2.9 g/dL (3.4-5.0) Albumin/Globulin Ratio 1.3 (1.0-1.7) Micro Microbiology 12/31/18 Blood Culture - Preliminary, Resulted NO GROWTH AFTER 3 DAYS Objective Assessment Fever could be infectious vs inflammatory from drug reaction - better Leukopenia from chemotherapy. s/p Granix 01/02 - better Lymphoma, on chemotherapy. Hyperbilirubinemia chronic,abn lfts improved from before Hypokalemia/Hypomagnesemia.on supplements Chronic dermatitis with dry scaly skin from before improved Superimposed generalized rash, resolving Acute kidney injury. Protein-calorie malnutrition. Anemia and thrombocytopenia from chemo Plan Plan of Care Discontinue cefepime and doing well Ok to d/c home VERONICA SHAH MD Jan 05, 2019 10:30
[2019-01-05 11:00] VITALS: BP 122/56
[2019-01-05] MEDS ORDERED: POTASSIUM CHLORIDE 20 MEQ TABLET.ER. PO ONE (11:00)
[2019-01-05] MEDS ORDERED: POTA20TA4 PO (11:12)
[2019-01-05] MEDS ORDERED: HEPARIN PF 500 UNIT/5 ML DISP.SYRIN. IV ONE (12:30)
--- NOTE | 2019-01-05 13:30 | NUR ---
Patient discharged to home. Discharge instructions, medications, and follow up appointments discussed with patient. Patient verbalized understanding. Prescription called into [facility] pharmacy. Discharge papers given to patient. Port flushed with heparin then deaccessed. Gauze dressing applied. Patient tolerated well. Patient assisted out in wheelchair with staff at this time. Patients here to get her. All belongings with patient.
--- NOTE | 2019-02-03 12:49 | PDOC3 ---
Discharge Summary Visit Information Date of Admission: Dec 31, 2018 Date of Discharge: Jan 05, 2019 Admitting Diagnosis: fever Final Diagnosis Marginal zone lymphoma on chemotherapy Neutropenic fever, sepsis poa hypomagnesemia hypothyroid state on replacement Anemia hgb 7.0 01/02 WORSENING PANCYTOPENIA Diarrhea 1 episode RECENT Colitis on CAT scan INDWelling right-sided Port-A-Cath for chemotherapy NOn Sustained V. tach, asymptomatic, 12/08/18 and today The Ejection Fraction is 60-65%. w. left ventricular hypertrophy. Doppler and Color Flow revealed no significant aortic regurgitation.recent echo malnutrition POA, serum albumin 2.5 Problems Medical Problems: (1) Hypokalemia Status: Acute (2) Hypomagnesemia Status: Acute (3) Leukopenia Status: Acute (4) Neutropenic fever Status: Acute (5) SIRS (systemic inflammatory response syndrome) Status: Acute Brief Hospital Course Allergies Allergies Coded Allergies Type Severity Reaction Last Updated Verified Penicillins Allergy Severe DIFFICULTY BREATHING 01/01/19 Yes Sulfa (Sulfonamide Antibiotics) Allergy Intermediate 05/07/18 Yes oxycodone Allergy Intermediate Itching 05/07/18 Yes prednisone Allergy Intermediate 05/07/18 Yes Brief Hospital Course Ms. Tenorio is a 58 old female with lymphoma admit wtih neutropenic fever, broad abx, ID and heme consult wbc 1.9 on admit wbc 1.0 on day 2, hgb dropped to 7 plan transfuse for hgb < 7 CARDIOLOGY following ONCOLOGY following HOME MEDS tele Discharge Information Condition at Discharge: Improved Follow Up: Weeks Disposition/Orders: D/C to Home Scheduled Aspirin (Aspirin) 81 Mg Tab.chew, 1 TAB PO DAILY, #30 Ref 3 (Reported) Entered as Reported by: BRAD RODRIGUES on 02/12/17 1439 Last Action: Continued on 01/01/19 1438 by BRIAN DARLING MD Biotin (Biotin) 10,000 Mcg Capsule, 10,000 MCG PO DAILY for supplement, (Reported) Entered as Reported by: RADHAMES GARVIN on 10/10/18 1150 Last Action: Converted on 01/01/19 1438 by BRIAN DARLING MD Duloxetine Hcl (Cymbalta) 30 Mg Capsule.dr, 1 CAP PO DAILY, #30 Ref 5 (Reported) Entered as Reported by: ADRIANE SULLIVAN on 04/17/18 0440 Last Action: Continued on 01/01/191437 by BRIAN DARLING MD Latanoprost (Latanoprost) 2.5 Ml Drops, 1 DROP EACHEYE QHS, #2.5 Ref 6 (Reported) Entered as Reported by: SUZANNA DE PAZ on 02/11/17 0452 Last Action: Converted on 01/01/191437 by BRIAN DARLING MD Levothyroxine Sodium (Synthroid) 88 Mcg Tablet, 100 MCG PO DAILY, #30 (Reported) Entered as Reported by: SUZANNA DE PAZ on 02/11/17 0501 Last Action: Continued on 01/01/191437 by BRIAN DARLING MD Metoprolol Tartrate (Metoprolol Tartrate) 25 Mg Tablet, 25 MG PO DAILY for FOR HYPERTENSION, #60 Ref 0 (Reported) Entered as Reported by: CHAPO LLANES on 04/17/18 1050 Last Action: Continued on 01/01/19 0254 by ARASELI REDD Multivitamin (Multivitamins) 1 Each Tablet, 1 EACH PO DAILY, (Reported) Entered as Reported by: IZA LEE on 05/06/18 1147 Last Action: Converted on 01/01/191437 by BRIAN DARLING MD Potassium Chloride (Klor-Con M20) 20 Meq Tab.er.prt, 20 MEQ PO QODAY for low potassium, #14 Prescribed by: MARVA MACEDO on 01/05/19 1112 MARVA MACEDO MD February 03, 2019 12:49
== END 2019-01-05 13:15 | disposition home or self-care (01) | DRG 809 ==
LOC: ER 13:49 → 6 SOUTH 15:55
PROVIDERS: ADMIT Internal Medicine; ATTEND Internal Medicine
DX: D61.810 Antineoplastic chemotherapy induced pancytopenia (principal); C85.90 Non-Hodgkin lymphoma, unspecified, unspecified site; E46 Unspecified protein-calorie malnutrition; N17.9 Acute kidney failure, unspecified; R50.2 Drug induced fever; D63.8 Anemia in other chronic diseases classified elsewhere; T45.1X5A Adverse effect of antineoplastic and immunosuppressive drugs, initial encounter; E03.9 Hypothyroidism, unspecified; E83.42 Hypomagnesemia; E87.6 Hypokalemia; H40.9 Unspecified glaucoma; I10 Essential (primary) hypertension; I25.10 Atherosclerotic heart disease of native coronary artery without angina pectoris; I48.91 Unspecified atrial fibrillation; F32.9 Major depressive disorder, single episode, unspecified; F41.9 Anxiety disorder, unspecified; Z87.01 Personal history of pneumonia (recurrent); M19.90 Unspecified osteoarthritis, unspecified site; I48.0 Paroxysmal atrial fibrillation; E80.6 Other disorders of bilirubin metabolism; T50.905A Adverse effect of unspecified drugs, medicaments and biological substances, initial encounter; R50.81 Fever presenting with conditions classified elsewhere; Y92.89 Other specified places as the place of occurrence of the external cause; Z68.35 Body mass index [BMI] 35.0-35.9, adult; Z82.49 Family history of ischemic heart disease and other diseases of the circulatory system; Z90.710 Acquired absence of both cervix and uterus; Z88.5 Allergy status to narcotic agent; Z88.0 Allergy status to penicillin; Z88.2 Allergy status to sulfonamides; Z88.8 Allergy status to other drugs, medicaments and biological substances
CPT/HCPCS: 36415; 71045; 80048; 80053; 83605; 83735; 85007; 85025; 87040; 96361; 96365; 96366; 96375; J0692; J1442; J1650; J3475; J7030; Q0163; 99285-25

== ENCOUNTER → 2019-02-06 | Outpatient (CLI) | payer BC ==
[~2019-02-06] MED LIST changes: +POTA20TA4 PO
--- NOTE | 2019-02-06 07:49 | RAD ---
Limited abdominal ultrasound 02/06/2019 INDICATION: Evaluate spleen size COMPARISON STUDY: Abdominal ultrasound December 03, 2018 Discussion: Limited ultrasound evaluation of the spleen is performed. Static images are submitted to PACS. On today's exam spleen measures 15 cm longitudinally x 5.5 cm AP x5.5 cm transverse. On comparison study the spleen measured 15.6 cm longitudinally x 6 cm AP x 6 cm transverse No focal splenic lesions are identified on today's exam. Small accessory splenule noted. IMPRESSION: Similar to minimally decreased size of the spleen in the interim since December 03, 2018 Electronically signed by: Khai Torres MD (02/06/2019 7:46 AM) [id number]
== END | disposition home or self-care (01) ==
LOC: US 07:00
PROVIDERS: ATTEND Internal Medicine Hematology & Oncology
DX: R16.1 Splenomegaly, not elsewhere classified (principal); C83.50 Lymphoblastic (diffuse) lymphoma, unspecified site
CPT/HCPCS: 76705

== ENCOUNTER → 2019-03-05 | Outpatient (CLI) | payer BC ==
--- NOTE | 2019-03-05 08:32 | RAD ---
Abdominal ultrasound, 03/05/2019: HISTORY: Splenomegaly, lymphoma The gallbladder is surgically absent. The common hepatic duct is of normal caliber. No hepatic mass is seen. The visualized portions of the pancreas and both kidneys are unremarkable. The abdominal aorta and inferior vena cava show no abnormality. The spleen is enlarged measuring 16.1 cm in craniocaudad extent. When allowing for technical differences, the spleen appears to be of similar size compared to the 02/06/2019 exam. No free fluid is evident in the abdomen. IMPRESSION: 1. Stable splenomegaly. 2. No acute abdominal abnormality is detected. Electronically signed by: Jeremy Mcnamara MD (03/05/2019 8:30 AM) [facility]
== END | disposition home or self-care (01) ==
LOC: US 07:29
PROVIDERS: ATTEND Internal Medicine Hematology & Oncology
DX: C85.80 Other specified types of non-Hodgkin lymphoma, unspecified site (principal); R16.1 Splenomegaly, not elsewhere classified; Z90.49 Acquired absence of other specified parts of digestive tract
CPT/HCPCS: 76700

== ENCOUNTER → 2019-06-05 | Outpatient (CLI) | payer BC ==
--- NOTE | 2019-06-05 11:01 | RAD ---
Complete abdominal ultrasound 06/05/2019 INDICATION: History of lymphoma. History of thyromegaly. COMPARISON STUDY: Abdominal ultrasound March 05, 2019 Discussion: Ultrasound evaluation of the abdomen was performed. Static images are submitted to PACS. Size IVC and aorta are unremarkable in appearance. The pancreas is nonvisualized. The liver is grossly unremarkable in appearance measuring 17 cm longitudinally. Hepatic echotexture is normal. Portal venous flows in the normal direction. No intrahepatic biliary dilatation is seen. No focal hepatic lesion is seen. The right kidney is normal in appearance measuring 11.4 cm in length. Spleen is enlarged measuring 14.8 cm longitudinally. The spleen measured 16 cm longitudinally on comparison study. Left kidney is normal in appearance measuring 10.6 cm in length. IMPRESSION: 1. Splenomegaly persists, though there is been mild apparent decrease in spleen size in the interim since comparison ultrasound. 2. Otherwise unremarkable abdominal ultrasound Electronically signed by: Khai Torres MD (06/05/2019 10:58 AM) [id number]
== END | disposition home or self-care (01) ==
LOC: US 07:01
PROVIDERS: ATTEND Internal Medicine Hematology & Oncology
DX: C85.80 Other specified types of non-Hodgkin lymphoma, unspecified site (principal); R16.1 Splenomegaly, not elsewhere classified; Z88.0 Allergy status to penicillin; Z88.1 Allergy status to other antibiotic agents; Z88.8 Allergy status to other drugs, medicaments and biological substances
CPT/HCPCS: 76700

== ENCOUNTER → 2019-08-28 | Outpatient (CLI) | payer BC ==
[~2019-08-28] MED LIST changes: -DILT120C85 PO; +DILT120C99 PO
--- NOTE | 2019-08-28 10:40 | RAD ---
Abdominal ultrasound compared to similar exam dated June 05, 2019 for hepatomegaly. Technique an findings: Real-time grayscale and color Doppler evaluation of the abdominal organs is performed. The gallbladder is surgically absent. The liver is enlarged measuring 18.8 cm, and is notable for diffuse fatty infiltration with no focal parenchymal abnormal abnormalities. No intrahepatic biliary ductal dilatation. Common bile duct is not identified. There is hepatopedal flow within the patent portal vein. The right kidney measures 11.7 x 4.7 x 5.0 cm and the left measures 10.5 x 3.7 x 4.0 cm. No hydronephrosis or parenchymal abnormality involving either kidney. Visualized portions the pancreas are grossly unremarkable, with limited evaluation of the pancreatic tail. The spleen is enlarged measuring 14.2 cm. The aorta is nonaneurysmal. The IVC is patent. IMPRESSION: 1. Hepatosplenomegaly. The liver appears larger today and the the spleen similar today compared to the prior examination, though it should be remembered that ultrasound measurements are subject to significant hand wrapper operator variability. 2. Hepatic steatosis. Electronically signed by: Nathan Almonte MD (08/28/2019 10:37 AM) [id number]
== END | disposition home or self-care (01) ==
LOC: US 07:09
PROVIDERS: ATTEND Internal Medicine Hematology & Oncology
DX: K76.0 Fatty (change of) liver, not elsewhere classified (principal); R16.2 Hepatomegaly with splenomegaly, not elsewhere classified; C85.80 Other specified types of non-Hodgkin lymphoma, unspecified site
CPT/HCPCS: 76700

== ENCOUNTER → 2019-10-23 | Outpatient (CLI) | payer BC ==
--- NOTE | 2019-10-23 10:04 | RAD ---
EXAM: Maxillofacial bone CT without contrast. HISTORY: Sinusitis. TECHNIQUE: Computed tomographic images of the maxillofacial bones were obtained without contrast. *One or more of the following individualized dose reduction techniques were utilized for this examination: 1. Automated exposure control. 2. Adjustment of the mA and/or kV according to patient size. 3. Use of iterative reconstruction technique. COMPARISON: None. FINDINGS: There is mild left maxillary and right ethmoid sinus mucosal thickening. There is evidence of bilateral maxillary antrostomy/uncinectomy surgery. There is no significant nasal septal deviation. There is no sinus air-fluid level. There are multiple missing teeth and dental restorations. The temporal minimal joints are intact. The mastoid air cells are predominantly clear. The visualized portions of the brain and calvarium are unremarkable. The orbits are unremarkable. IMPRESSION: 1. Mild left maxillary and right ethmoid sinus mucosal thickening. 2. Bilateral antrostomy/uncinectomy changes. Electronically signed by: Anabel Do MD (10/23/2019 10:01 AM) [facility]
== END | disposition home or self-care (01) ==
LOC: CT 08:26
PROVIDERS: ATTEND Family Medicine
DX: J34.89 Other specified disorders of nose and nasal sinuses (principal); J32.9 Chronic sinusitis, unspecified
CPT/HCPCS: 70486

== ENCOUNTER → 2019-10-23 | Outpatient (CLI) | payer BC ==
--- NOTE | 2019-10-23 10:06 | RAD ---
ABDOMEN COMPLETE: 10/23/2019 8:00 AM Indication: 59 years old Female. Lymphoma, splenomegaly. Comparison: 08/28/2019. TECHNIQUE: Sonographic evaluation of the abdomen is performed utilizing grayscale and color Doppler. FINDINGS: Liver: There is diffuse increased echogenicity of the hepatic parenchyma compatible with diffuse hepatocellular disease, most commonly due to steatosis. This decreases the sensitivity of ultrasound for the detection of focal hepatic lesions.. There is hepatopedal flow within the portal venous system. Right hepatic lobe measures 19.0 cm. Biliary system: CBD measures 4.6 mm. There is no intrahepatic or extrahepatic biliary dilatation. Gallbladder: Absent . Sonographic Ross sign: Negative Pancreas: Visualized head and uncinate process are unremarkable. Body and tail are not visualized. Spleen: 13.7 cm, Previously measuring 14.2 cm Right kidney: 11.1 x 5.4 x 5.0 cm. No hydronephrosis. Normal echotexture without focal mass or renal calculus. Left kidney: 10.9 x 4.1 x 3.8 cm. No hydronephrosis. Normal echotexture without focal mass or renal calculus. Abdominal aorta and IVC: Visualized portions unremarkable. Free fluid:None. IMPRESSION: Mild splenomegaly measuring 13.7 cm, previously 14.2 cm. There is diffuse increased echogenicity of the hepatic parenchyma compatible with diffuse hepatocellular disease, most commonly due to steatosis. This decreases the sensitivity of ultrasound for the detection of focal hepatic lesions. Electronically signed by: Toshia Bahena MD (10/23/2019 10:03 AM) [id number]
== END | disposition home or self-care (01) ==
LOC: US 08:28
PROVIDERS: ATTEND Internal Medicine Hematology & Oncology
DX: R16.1 Splenomegaly, not elsewhere classified (principal); C85.80 Other specified types of non-Hodgkin lymphoma, unspecified site
CPT/HCPCS: 76700

== ENCOUNTER → 2019-12-18 | Outpatient (CLI) | payer BC ==
--- NOTE | 2019-12-18 08:06 | RAD ---
Ultrasound the abdomen complete. HISTORY: Lymphoma, enlarged spleen, C 85.80 Ultrasound the abdomen was compared with a study from October 23. Pancreas was normal in appearance. Aorta and vena cava were unremarkable. Liver was normal in size and appearance without a focal lesion. Right kidney was 11.4 cm in length without a mass or hydronephrosis. Patient's had a previous cholecystectomy. Common duct was normal measuring 5 mm. Spleen was mildly enlarged measuring 13.7 cm in length without change from the prior study. Left kidney was 11.1 cm in length without a mass or hydronephrosis. IMPRESSION: 1. Mild splenic enlargement without change from the prior study. 2. Previous cholecystectomy. 3. No focal liver lesion noted. 4. No other acute finding. Electronically signed by: Osmin Hurd MD (12/18/2019 8:03 AM) [id number]
== END | disposition home or self-care (01) ==
LOC: US 07:00
PROVIDERS: ATTEND Internal Medicine Hematology & Oncology
DX: R16.1 Splenomegaly, not elsewhere classified (principal); C85.80 Other specified types of non-Hodgkin lymphoma, unspecified site; Z90.49 Acquired absence of other specified parts of digestive tract
CPT/HCPCS: 76700

== ENCOUNTER → 2020-02-15 | Outpatient (CLI) | payer BC ==
[~2020-02-15] MED LIST changes: -LEVO88TA2 PO; +LEVO88TA70 PO
--- NOTE | 2020-02-15 08:35 | RAD ---
STUDY: US Abdomen Complete INDICATION: Splenomegaly. COMPARISON: 12/18/2019 TECHNIQUE: Real-time grayscale and color Doppler sonographic evaluation of the abdomen. Findings: Pancreas: The adequately evaluated portion of the pancreas is unremarkable. Liver: No significant interval change. Hepatic echotexture is within normal limits. Aorta/IVC/Main Portal Vein: Normal aortic caliber. Patent main portal vein with hepatopedal flow. Unremarkable IVC at the liver. Gall Bladder: Surgically absent. Common Bile Duct: Within normal limits at 0.5 cm in diameter. Right Kidney: Measures 11.8 cm in length. Cortical thickness and echogenicity is within normal limits. No hydronephrosis. Left Kidney: Measures 10.6 and image in length. Cortical thickness and echogenicity is within normal limits. No hydronephrosis. Spleen: The spleen is again noted to be mildly enlarged but not significantly changed measuring 13.7 cm in longitudinal dimension. Miscellaneous: None. Impression: 1. Unchanged mild splenic enlargement again measuring 13.7 cm in maximum longitudinal dimension. 2. The rest of the evaluated abdominal structures are unremarkable. Electronically signed by: PATRICIA PEREZ MD (02/15/2020 8:32 AM) [id number]
== END | disposition home or self-care (01) ==
LOC: US 07:39
PROVIDERS: ATTEND Internal Medicine Hematology & Oncology
DX: C85.80 Other specified types of non-Hodgkin lymphoma, unspecified site (principal); Z88.0 Allergy status to penicillin; Z88.2 Allergy status to sulfonamides; Z88.5 Allergy status to narcotic agent
CPT/HCPCS: 76700

== ENCOUNTER 2020-04-03 01:12 | Inpatient (IN) | payer BC ==
[2020-04-03] VITALS (13 sets, daily range): BP systolic 109–159; BP diastolic 57–102
[~2020-04-03] VITALS: Ht 175.3 cm; Wt 116.7 kg
[~2020-04-03 01:12] MED LIST changes: +MULT-445 PO; -MULT1TAB52 PO
[2020-04-03] MEDS ORDERED: IV NORMAL SALINE 500ML BAG 500 ML IV ONE (02:00)
[2020-04-03] MEDS ORDERED: ASPIRIN CHEWABLE 81 MG TABLET. PO ONE (02:00)
[2020-04-03] MEDS ORDERED: DILTIAZEM HCL 125 MG in IV NORMAL SALINE 100ML 100 ML IV ONE (02:00)
[2020-04-03] MEDS ORDERED: dilTIAZem IV PUSH 25 MG/5 ML VIAL IVP ONE (02:00)
[2020-04-03] MEDS ORDERED: LABETALOL 20 MG/4 ML DISP.SYRIN. IVP ONE (02:30)
--- NOTE | 2020-04-03 02:49 | RAD ---
EXAM: PORTABLE CHEST 1V INDICATION: Reason: palpitations ER#[id number] / Spl. Instructions: / History: . TECHNIQUE: Single view COMPARISON: 12/31/2018 FINDINGS: Stable right jugular approach tunneled chest. The heart size is normal. The great vessels appear unremarkable. There is no hilar or mediastinal mass. The lungs are clear. There is no pleural effusion or pneumothorax. There are no significant osseous abnormalities. IMPRESSION: No active cardiopulmonary disease. Electronically signed by: Ruperto Douglas MD (04/03/2020 2:47 AM) [facility] [place]
[2020-04-03 02:55] LABS: BASO % 0 % (0-3); EOS # 0.1 x10^3/uL (0.0-0.7); EOS % 2 % (0-3); HEMATOCRIT 41.1 % (36.0-47.0); HEMOGLOBIN 14.1 g/dL (12.0-15.5); LYMPH # 0.6 x10^3/uL (1.0-4.8); LYMPH % 14 % (24-48); MEAN CORPUSCULAR HEMOGLOBIN 29 pg (25-35); MEAN CORPUSCULAR HGB CONC 34 g/dL (31-37); MEAN CORPUSCULAR VOLUME 85 fL (79-100); MONO # 0.5 x10^3/uL (0.0-1.1); MONO % 13 % (0-9); NEUT # 2.9 x10^3/uL (1.8-7.7); NEUT % 70 % (31-73); PLATELET COUNT 163 x10^3/uL (140-400); RED BLOOD COUNT 4.82 x10^6/uL (3.50-5.40); RED CELL DISTRIBUTION WIDTH 13.1 % (11.5-14.5); WHITE BLOOD COUNT 4.1 x10^3/uL (4.0-11.0)
[2020-04-03 03:06] LABS: CALCIUM 8.6 mg/dL (8.5-10.1); CREATININE 1.3 mg/dL (0.6-1.0); GFR 41.9; POTASSIUM 3.3 mmol/L (3.5-5.1)
[2020-04-03 03:12] LABS: ALBUMIN 3.4 g/dL (3.4-5.0); ALBUMIN/GLOBULIN RATIO 1.2 (1.0-1.7); TOTAL BILIRUBIN 0.3 mg/dL (0.2-1.0); TOTAL PROTEIN 6.2 g/dL (6.4-8.2)
--- NOTE | 2020-04-03 03:22 | PHYS DOC ---
Past Medical History Past Medical History: A-Fib, Cancer, Glaucoma, Hypothyroid Additional Past Medical Histor: A-FIB W RVR Past Surgical History: Hysterectomy, Other Additional Past Surgical Histo: SINUS SURGERY ,R FOOT, L WRIST, port insertion, bone marrow biopsy Smoking Status: Never Smoker Alcohol Use: None Drug Use: None General Adult EDM: Chief Complaint: Palpitations HPI: HPI: Patient is a 59 year old Female presenting with palpitations x2 hours patient had been previously well. Patient is a history of atrial fibrillation on metoprolol she was admitted a few years back for rapid ventricular response she is not on any anticoagulation she is not sure why she does have a history of lymphoma she is taking medication for that. Last dose of the medication was in early February patient has no recent fever no cough she has been otherwise well no vomiting or diarrhea recently. Patient is some chest pressure associated with the palpitations. Mild shortness of breath she said she just felt kind of weak she was sweaty Review of Systems: Review of Systems: Constitutional: Denies fever or chills. [] Eyes: Denies change in visual acuity. [] GI: Denies abdominal pain, nausea, vomiting, bloody stools or diarrhea. [] : Denies dysuria. [] Neurologic: Denies headache, focal weakness or sensory changes. [] Endocrine: Denies polyuria or polydipsia. [] Lymphatic: Denies swollen glands. [] Psychiatric: Denies depression or anxiety. [] Heart Score: Risk Factors: Risk Factors: DM, Current or recent (<one month) smoker, HTN, HLP, family history of CAD, obesity. Risk Scores: Score 0 - 3: 2.5% MACE over next 6 weeks - Discharge Home Score 4 - 6: 20.3% MACE over next 6 weeks - Admit for Clinical Observation Score 7 - 10: 72.7% MACE over next 6 weeks - Early Invasive Strategies Current Medications: Current Medications Medications (Trade) Dose Ordered Sig/Angeline Start Time Stop Time Status Last Admin Dose Admin Aspirin (Aspirin Chewable) 324 mg 1X ONCE 04/03/20 02:00 04/03/20 02:01 DC 04/03/20 02:22 324 MG Diltiazem HCl (Cardizem Iv Push) 20 mg 1X ONCE 04/03/20 02:00 04/03/20 02:01 DC 04/03/20 01:53 20 MG Diltiazem HCl 125 mg/Sodium Chloride 125 ml @ 5 mls/hr 1X ONCE 04/03/20 02:00 04/04/20 02:59 04/03/20 02:03 5 MLS/HR Sodium Chloride 500 ml @ 500 mls/hr 1X ONCE 04/03/20 02:00 04/03/20 02:59 DC Allergies: Allergies: Allergies Coded Allergies Type Severity Reaction Last Updated Verified Penicillins Allergy Severe DIFFICULTY BREATHING 01/01/19 Yes Sulfa (Sulfonamide Antibiotics) Allergy Intermediate 05/07/18 Yes oxycodone Allergy Intermediate Itching 05/07/18 Yes prednisone Allergy Intermediate 05/07/18 Yes Physical Exam: PE: Constitutional: Well developed, somewhat ill-appearing diaphoretic tacky and irregular HENT: Normocephalic, atraumatic, bilateral external ears normal, oropharynx moist, no oral exudates, nose normal. [] Eyes: PERRLA, EOMI, conjunctiva normal, no discharge. [] Neck: Normal range of motion, no tenderness, supple, no stridor. [] Cardiovascul tachycardic and irregular Lungs & Thorax: Bilateral breath sounds clear to auscultation [] mild tachypnea Abdomen: Bowel sounds normal, soft, no tenderness, no masses, no pulsatile masses. [] Skin: Warm, dry, no erythema, no rash. [] Back: No tenderness, no CVA tenderness. [] Extremities: No tenderness, no cyanosis, no clubbing, ROM intact, no edema. [] Neurologic: Alert and oriented X 3, normal motor function, normal sensory function, no focal deficits noted. [] Psychologic: Affect normal, judgement normal, mood normal. [] Current Patient Data: Labs: Laboratory Tests Test 04/03/20 02:40 White Blood Count 4.1 x10^3/uL (4.0-11.0) Red Blood Count 4.82 x10^6/uL (3.50-5.40) Hemoglobin 14.1 g/dL (12.0-15.5) Hematocrit 41.1 % (36.0-47.0) Mean Corpuscular Volume 85 fL (79-100) Mean Corpuscular Hemoglobin 29 pg (25-35) Mean Corpuscular Hemoglobin Concent 34 g/dL (31-37) Red Cell Distribution Width 13.1 % (11.5-14.5) Platelet Count 163 x10^3/uL (140-400) Neutrophils (%) (Auto) 70 % (31-73) Lymphocytes (%) (Auto) 14 % (24-48) L Monocytes (%) (Auto) 13 % (0-9) H Eosinophils (%) (Auto) 2 % (0-3) Basophils (%) (Auto) 0 % (0-3) Neutrophils # (Auto) 2.9 x10^3/uL (1.8-7.7) Lymphocytes # (Auto) 0.6 x10^3/uL (1.0-4.8) L Monocytes # (Auto) 0.5 x10^3/uL (0.0-1.1) Eosinophils # (Auto) 0.1 x10^3/uL (0.0-0.7) Basophils # (Auto) 0.0 x10^3/uL (0.0-0.2) Prothrombin Time 12.0 SEC (11.7-14.0) Prothrombin Time INR 0.9 (0.8-1.1) Sodium Level 144 mmol/L (136-145) Potassium Level 3.3 mmol/L (3.5-5.1) L Chloride Level 106 mmol/L (98-107) Carbon Dioxide Level 26 mmol/L (21-32) Anion Gap 12 (6-14) Blood Urea Nitrogen 14 mg/dL (7-20) Creatinine 1.3 mg/dL (0.6-1.0) H Estimated GFR (Cockcroft-Gault) 41.9 BUN/Creatinine Ratio 11 (6-20) Glucose Level 145 mg/dL (70-99) H Calcium Level 8.6 mg/dL (8.5-10.1) Magnesium Level Pending Total Bilirubin Pending Aspartate Amino Transferase (AST) Pending Alanine Aminotransferase (ALT) Pending Alkaline Phosphatase Pending Total Protein Pending Albumin Pending Albumin/Globulin Ratio Pending Laboratory Tests 04/03/20 02:40 Laboratory Tests 04/03/20 02:40 Vital Signs: Vital Signs Date Time Temp Pulse Resp B/P (MAP) Pulse Ox O2 Delivery O2 Flow Rate FiO2 04/03/20 03:04 136 128/70 EKG: EKG: [] A. fib rate of 211 extremely fast rate related changes no obvious STEMI Radiology/Procedures: Radiology/Procedures: [] Impression: The heart size is normal. The great vessels appear unremarkable. There is no hilar or mediastinal mass. The lungs are clear. There is no pleural effusion or pneumothorax. There are no significant osseous abnormalities. IMPRESSION: No active cardiopulmonary disease. Electronically signed by: Ruperto Douglas MD (04/03/2020 2:47 AM) [facility] [place] Course & Med Decision Making: Course & Med Decision Making Pertinent Labs and Imaging studies reviewed. (See chart for details) [] Hypokalemia was repleted. Critical care time was 35 minutes exclusive of procedures. For management of atrial fibrillation with RVR requiring Cardizem drip as well as IV digoxin 59-year-old female with known atrial fibrillation with RVR presenting with palpitations found of a heart rate of 200 likely recurrent A. fib RVR labs checked potassium was repleted blood pressure initially was quite high 200/140 given a dose of labetalol and then also maxed out diltiazem drip currently at 3:20 AM heart rate is mostly around 1 25-1 30 with a blood pressure 113/70 IV digoxin was also given \for improved heart rate control after maxing the Cardizem. Patient be admitted to the service of Dr. Davis with cardiology consultation Tonya Disclaimer: Tonya Disclaimer: This electronic medical record was generated, in whole or in part, using a voice recognition dictation system. Departure Departure Impression: Primary Impression: Atrial fibrillation with tachycardic ventricular rate Disposition: ADMITTED INPATIENT Admitting Physician: HIMS Condition: GUARDED Referrals: ISRAEL QUIÑONES MD (PCP) Justicifation of Admission Dx: Justifications for Admission: Justification of Admission Dx: Yes Comments: AFIB RVR MICHAEL JOHNSON MD Apr 03, 2020 03:22
[2020-04-03] MEDS ORDERED: DIGOXIN IV 500 MCG/2 ML AMPUL. IV ONE (03:30)
[2020-04-03] MEDS ORDERED: POTASSIUM CHLORIDE 20 MEQ TABLET.ER. PO ONE (03:30)
[2020-04-03] MEDS ORDERED: METOPROLOL TART IMMED RELEASE 25 MG TABLET. PO ONE ×2 (04:30→13:00)
[2020-04-03] MEDS ORDERED: RIVAROXABAN 15 MG TABLET. PO ONE (05:30)
[2020-04-03] MEDS ORDERED: DILTIAZEM HCL 125 MG in IV NORMAL SALINE 100ML 100 ML IV PRN (05:30)
[2020-04-03] MEDS ORDERED: ACETAMINOPHEN 325 MG TABLET. PO PRN (07:30)
[2020-04-03] MEDS ORDERED: LEVOTHYROXINE 88 MCG TABLET PO SCH (07:30)
[2020-04-03] MEDS: DULoxetine HCL 30 MG CAPSULE.DR PO SCH (08:59)
[2020-04-03] MEDS ORDERED: ASPIRIN CHEWABLE 81 MG TABLET. PO SCH (09:00)
--- NOTE | 2020-04-03 11:25 | PDOC2 ---
CONSULT Date of Consult Date of Consult DATE: 04/03/20 TIME: 11:21 Reason for Consult Reason for Consult: Rapid atrial fibrillation Referring Physician Referring Physician: Dr. Davis Identification/Chief Complaint Chief Complaint Palpitations Source Source: Chart review, Patient History of Present Illness Reason for Visit: The patient is a 59-year-old female with a history of paroxysmal atrial fibrillation. Patient reported increased heart rate and came to the emergency room. She is found to be in rapid atrial fibrillation with a rate of greater than 180 and systolic pressure greater than 200. Chest x-ray showed no acute changes. Troponins have been normal x3. TSH is 0.160. She has been treated overnight with IV Cardizem and 1 dose of digoxin which is significant improved her rate to approximately 130. Patient is also been placed on Xarelto for anticoagulation. She is feeling much better today. Past Medical History Cardiovascular: AFIB, HTN Pulmonary: Pneumonia CENTRAL NERVOUS SYSTEM: Other GI: Other Heme/Onc: Other Hepatobiliary: No pertinent hx Psych: Anxiety, Depression Musculoskeletal: Osteoarthritis Infectious disease: No pertinent hx Renal/: No pertinent hx Endocrine: Hypothyroidism Past Surgical History Past Surgical History: Hysterectomy Family History Family History: Hypertension Social History No ALCOHOL: none Drugs: None Lives: with Family Current Problem List Problem List Problems Medical Problems: (1) Atrial fibrillation with tachycardic ventricular rate Status: Acute Current Medications Current Medications Current Medications Diltiazem HCl 125 mg/Sodium Chloride 125 ml @ 5 mls/hr 1X ONCE IV Last adminis tered on 04/03/20at 02:03; Start 04/03/20 at 02:00; Stop 04/03/20 at 07:31; Status DC Diltiazem HCl (Cardizem Iv Push) 20 mg 1X ONCE IVP Last administered on 04/03/20at 01:53; Start 04/03/20 at 02:00; Stop 04/03/20 at 02:01; Status DC Sodium Chloride 500 ml @ 500 mls/hr 1X ONCE IV Last administered on 04/03/20at 03:26; Start 04/03/20 at 02:00; Stop 04/03/20 at 02:59; Status DC Aspirin (Aspirin Chewable) 324 mg 1X ONCE PO Last administered on 04/03/20at 02:22; Start 04/03/20 at 02:00; Stop 04/03/20 at 02:01; Status DC Labetalol HCl (Normodyne Iv Push) 20 mg 1X ONCE IVP Last administered on 04/03/20at 02:23; Start 04/03/20 at 02:30; Stop 04/03/20 at 02:31; Status DC Digoxin (Lanoxin) 500 mcg 1X ONCE IV Last administered on 04/03/20at 03:04; Start 04/03/20 at 03:30; Stop 04/03/20 at 03:31; Status DC Potassium Chloride (Klor-Con) 20 meq 1X ONCE PO Last administered on 04/03/20at 03:25; Start 04/03/20 at 03:30; Stop 04/03/20 at 03:31; Status DC Metoprolol Tartrate (Lopressor) 25 mg 1X ONCE PO Last administered on 04/03/20at 04:43; Start 04/03/20 at 04:30; Stop 04/03/20 at 04:31; Status DC Rivaroxaban (Xarelto) 15 mg 1X ONCE PO Last administered on 04/03/20at 06:35; Start 04/03/20 at 05:30; Stop 04/03/20 at 05:31; Status DC Diltiazem HCl 125 mg/Sodium Chloride 125 ml @ 5 mls/hr CONT PRN IV SEE I/O RECORD Last administered on 04/03/20at 09:11; Start 04/03/20 at 05:30 Aspirin (Aspirin Chewable) 81 mg DAILY PO Last administered on 04/03/20at 08:59; Start 04/03/20 at 09:00 Duloxetine HCl (Cymbalta) 30 mg DAILY PO Last administered on 04/03/20at 08:59; Start 04/03/20 at 09:00 Levothyroxine Sodium (Synthroid) 100 mcg DAILY06 PO ; Start 04/03/20 at 07:30 Acetaminophen (Tylenol) 650 mg PRN Q6HRS PRN PO fever and pain; Start 04/03/20 at 07:30 Active Scripts Active Klor-Con M20 (Potassium Chloride) 20 Meq Tab.er.prt 20 Meq PO QODAY Reported Biotin 10,000 Mcg Capsule 10,000 Mcg PO DAILY Multivitamins (Multivitamin) 1 Each Tablet 1 Each PO DAILY Metoprolol Tartrate 25 Mg Tablet 25 Mg PO DAILY Cymbalta (Duloxetine Hcl) 30 Mg Capsule. 1 Cap PO DAILY Aspirin 81 Mg Tab.chew 1 Tab PO DAILY Synthroid (Levothyroxine Sodium) 88 Mcg Tablet 100 Mcg PO DAILY Latanoprost 2.5 Ml Drops 1 Drop EACHEYE QHS Allergies Allergies: Coded Allergies: Penicillins (Verified Allergy, Severe, DIFFICULTY BREATHING, 01/01/19) TOLERATES CEFEPIME Sulfa (Sulfonamide Antibiotics) (Verified Allergy, Intermediate, 05/07/18) oxycodone (Verified Allergy, Intermediate, Itching, 05/07/18) prednisone (Verified Allergy, Intermediate, 05/07/18) HARD TO BREATHE ROS Cardiovascular: yes Palpitations Physical Exam General: No acute distress HEENT: Atraumatic Lungs: Clear to auscultation Heart: Other (Irregularly irregular rate of 130) Abdomen: Normal bowel sounds Vitals VITALS Vital Signs Date Time Temp Pulse Resp B/P (MAP) Pulse Ox O2 Delivery O2 Flow Rate FiO2 04/03/20 07:00 98.2 123 18 148/84 (105) 98 Room Air 98.2 04/03/20 05:30 92.0 Labs Labs Laboratory Tests Test 04/03/20 02:40 04/03/20 06:40 04/03/20 10:12 White Blood Count 4.1 x10^3/uL (4.0-11.0) Red Blood Count 4.82 x10^6/uL (3.50-5.40) Hemoglobin 14.1 g/dL (12.0-15.5) Hematocrit 41.1 % (36.0-47.0) Mean Corpuscular Volume 85 fL (79-100) Mean Corpuscular Hemoglobin 29 pg (25-35) Mean Corpuscular Hemoglobin Concent 34 g/dL (31-37) Red Cell Distribution Width 13.1 % (11.5-14.5) Platelet Count 163 x10^3/uL (140-400) Neutrophils (%) (Auto) 70 % (31-73) Lymphocytes (%) (Auto) 14 % (24-48) Monocytes (%) (Auto) 13 % (0-9) Eosinophils (%) (Auto) 2 % (0-3) Basophils (%) (Auto) 0 % (0-3) Neutrophils # (Auto) 2.9 x10^3/uL (1.8-7.7) Lymphocytes # (Auto) 0.6 x10^3/uL (1.0-4.8) Monocytes # (Auto) 0.5 x10^3/uL (0.0-1.1) Eosinophils # (Auto) 0.1 x10^3/uL (0.0-0.7) Basophils # (Auto) 0.0 x10^3/uL (0.0-0.2) Prothrombin Time 12.0 SEC (11.7-14.0) Prothromb Time International Ratio 0.9 (0.8-1.1) Sodium Level 144 mmol/L (136-145) Potassium Level 3.3 mmol/L (3.5-5.1) Chloride Level 106 mmol/L (98-107) Carbon Dioxide Level 26 mmol/L (21-32) Anion Gap 12 (6-14) Blood Urea Nitrogen 14 mg/dL (7-20) Creatinine 1.3 mg/dL (0.6-1.0) Estimated GFR (Cockcroft-Gault) 41.9 BUN/Creatinine Ratio 11 (6-20) Glucose Level 145 mg/dL (70-99) Calcium Level 8.6 mg/dL (8.5-10.1) Magnesium Level 2.0 mg/dL (1.8-2.4) Total Bilirubin 0.3 mg/dL (0.2-1.0) Aspartate Amino Transf (AST/SGOT) 24 U/L (15-37) Alanine Aminotransferase (ALT/SGPT) 52 U/L (14-59) Alkaline Phosphatase 197 U/L (46-116) Troponin I Quantitative < 0.017 ng/mL (0.000-0.055) < 0.017 ng/mL (0.000-0.055) < 0.017 ng/mL (0.000-0.055) QW-Ncs-U-Type Natriuretic Peptide 99 pg/mL (0-124) Total Protein 6.2 g/dL (6.4-8.2) Albumin 3.4 g/dL (3.4-5.0) Albumin/Globulin Ratio 1.2 (1.0-1.7) Thyroid Stimulating Hormone (TSH) 0.160 uIU/mL (0.358-3.74) Laboratory Tests Test 04/03/20 02:40 04/03/20 06:40 04/03/20 10:12 White Blood Count 4.1 x10^3/uL (4.0-11.0) Red Blood Count 4.82 x10^6/uL (3.50-5.40) Hemoglobin 14.1 g/dL (12.0-15.5) Hematocrit 41.1 % (36.0-47.0) Mean Corpuscular Volume 85 fL (79-100) Mean Corpuscular Hemoglobin 29 pg (25-35) Mean Corpuscular Hemoglobin Concent 34 g/dL (31-37) Red Cell Distribution Width 13.1 % (11.5-14.5) Platelet Count 163 x10^3/uL (140-400) Neutrophils (%) (Auto) 70 % (31-73) Lymphocytes (%) (Auto) 14 % (24-48) Monocytes (%) (Auto) 13 % (0-9) Eosinophils (%) (Auto) 2 % (0-3) Basophils (%) (Auto) 0 % (0-3) Neutrophils # (Auto) 2.9 x10^3/uL (1.8-7.7) Lymphocytes # (Auto) 0.6 x10^3/uL (1.0-4.8) Monocytes # (Auto) 0.5 x10^3/uL (0.0-1.1) Eosinophils # (Auto) 0.1 x10^3/uL (0.0-0.7) Basophils # (Auto) 0.0 x10^3/uL (0.0-0.2) Prothrombin Time 12.0 SEC (11.7-14.0) Prothromb Time International Ratio 0.9 (0.8-1.1) Sodium Level 144 mmol/L (136-145) Potassium Level 3.3 mmol/L (3.5-5.1) Chloride Level 106 mmol/L (98-107) Carbon Dioxide Level 26 mmol/L (21-32) Anion Gap 12 (6-14) Blood Urea Nitrogen 14 mg/dL (7-20) Creatinine 1.3 mg/dL (0.6-1.0) Estimated GFR (Cockcroft-Gault) 41.9 BUN/Creatinine Ratio 11 (6-20) Glucose Level 145 mg/dL (70-99) Calcium Level 8.6 mg/dL (8.5-10.1) Magnesium Level 2.0 mg/dL (1.8-2.4) Total Bilirubin 0.3 mg/dL (0.2-1.0) Aspartate Amino Transf (AST/SGOT) 24 U/L (15-37) Alanine Aminotransferase (ALT/SGPT) 52 U/L (14-59) Alkaline Phosphatase 197 U/L (46-116) Troponin I Quantitative < 0.017 ng/mL (0.000-0.055) < 0.017 ng/mL (0.000-0.055) < 0.017 ng/mL (0.000-0.055) GK-Huj-Z-Type Natriuretic Peptide 99 pg/mL (0-124) Total Protein 6.2 g/dL (6.4-8.2) Albumin 3.4 g/dL (3.4-5.0) Albumin/Globulin Ratio 1.2 (1.0-1.7) Thyroid Stimulating Hormone (TSH) 0.160 uIU/mL (0.358-3.74) Images Images Chest x-ray. No acute changes. Assessment/Plan Assessment/Plan 1. Atrial fibrillation. Resumption of rapid atrial fibrillation yesterday. Rate of greater than 180. Rate now under better control after IV digoxin and IV Cardizem. Will increase baseline beta-blockers. Patient has also been started on Xarelto. We will continue to monitor overnight with monitoring of labs and further adjustment as needed. 2. Hypothyroidism. TSH level of 0.160. As per the primary service. 3. Hypertension. Also under significantly better control. Starting regular daily beta-blockers as above. Thank you for allowing us to participate in the care of your patient. RYAN CRENSHAW MD Apr 03, 2020 11:25
[2020-04-03] MEDS: METOPROLOL TART IMMED RELEASE 25 MG TABLET. PO SCH ×2 (11:30→21:19)
--- NOTE | 2020-04-03 12:01 | PDOC1 ---
History and Physical Date of Admission Date of Admission DATE: 04/03/20 TIME: 11:49 Identification/Chief Complaint Chief Complaint palpitations Source Source: Chart review, Patient History of Present Illness History of Present Illness 59 year old female hx of PAF, Non-Hodgkins Lymphoma, not on AC who presents to the hospital with chief complaint of palpitations for 2 days. reports hx of a fib dx 2 years ago. reports not taking rate controlling medications, last dose in February. no other symptoms, no chest pain sob nausea vomiting diarrhea. in the ER she was found to be in rapid atrial fibrillation with a rate of gre ater than 180 and systolic pressure greater than 200. Chest x-ray showed no acute changes. Troponins have been normal x3. TSH is 0.160. She was treated overnight with IV Cardizem and 1 dose of digoxin which is significant improved her rate to approximately 130. this AM feels better. no complaints. Past Medical History Cardiovascular: AFIB, HTN Pulmonary: Pneumonia CENTRAL NERVOUS SYSTEM: Other GI: Other Heme/Onc: Other Hepatobiliary: No pertinent hx Psych: Anxiety, Depression Musculoskeletal: Osteoarthritis Infectious disease: No pertinent hx Renal/: No pertinent hx Endocrine: Hypothyroidism Past Surgical History Past Surgical History: Hysterectomy Family History Family History: Hypertension Social History Smoke: No ALCOHOL: none Drugs: None Current Problem List Problem List Problems Medical Problems: (1) Atrial fibrillation with tachycardic ventricular rate Status: Acute Current Medications Current Medications Current Medications Diltiazem HCl 125 mg/Sodium Chloride 125 ml @ 5 mls/hr 1X ONCE IV Last administered on 04/03/20at 02:03; Start 04/03/20 at 02:00; Stop 04/03/20 at 07:31; Status DC Diltiazem HCl (Cardizem Iv Push) 20 mg 1X ONCE IVP Last administered on 04/03/20at 01:53; Start 04/03/20 at 02:00; Stop 04/03/20 at 02:01; Status DC Sodium Chloride 500 ml @ 500 mls/hr 1X ONCE IV Last administered on 04/03/20at 03:26; Start 04/03/20 at 02:00; Stop 04/03/20 at 02:59; Status DC Aspirin (Aspirin Chewable) 324 mg 1X ONCE PO Last administered on 04/03/20at 02:22; Start 04/03/20 at 02:00; Stop 04/03/20 at 02:01; Status DC Labetalol HCl (Normodyne Iv Push) 20 mg 1X ONCE IVP Last administered on 04/03/20at 02:23; Start 04/03/20 at 02:30; Stop 04/03/20 at 02:31; Status DC Digoxin (Lanoxin) 500 mcg 1X ONCE IV Last administered on 04/03/20at 03:04; Start 04/03/20 at 03:30; Stop 04/03/20 at 03:31; Status DC Potassium Chloride (Klor-Con) 20 meq 1X ONCE PO Last administered on 04/03/20at 03:25; Start 04/03/20 at 03:30; Stop 04/03/20 at 03:31; Status DC Metoprolol Tartrate (Lopressor) 25 mg 1X ONCE PO Last administered on 04/03/20at 04:43; Start 04/03/20 at 04:30; Stop 04/03/20 at 04:31; Status DC Rivaroxaban (Xarelto) 15 mg 1X ONCE PO Last administered on 04/03/20at 06:35; Start 04/03/20 at 05:30; Stop 04/03/20 at 05:31; Status DC Diltiazem HCl 125 mg/Sodium Chloride 125 ml @ 5 mls/hr CONT PRN IV SEE I/O RECORD Last administered on 04/03/20at 09:11; Start 04/03/20 at 05:30 Aspirin (Aspirin Chewable) 81 mg DAILY PO Last administered on 04/03/20at 08:59; Start 04/03/20 at 09:00 Duloxetine HCl (Cymbalta) 30 mg DAILY PO Last administered on 04/03/20at 08:59; Start 04/03/20 at 09:00 Levothyroxine Sodium (Synthroid) 100 mcg DAILY06 PO ; Start 04/03/20 at 07:30 Acetaminophen (Tylenol) 650 mg PRN Q6HRS PRN PO fever and pain; Start 04/03/20 at 07:30 Metoprolol Tartrate (Lopressor) 50 mg BID PO ; Start 04/03/20 at 11:30 Active Scripts Active Klor-Con M20 (Potassium Chloride) 20 Meq Tab.er.prt 20 Meq PO QODAY Reported Biotin 10,000 Mcg Capsule 10,000 Mcg PO DAILY Multivitamins (Multivitamin) 1 Each Tablet 1 Each PO DAILY Metoprolol Tartrate 25 Mg Tablet 25 Mg PO DAILY Cymbalta (Duloxetine Hcl) 30 Mg Capsule.dr 1 Cap PO DAILY Aspirin 81 Mg Tab.chew 1 Tab PO DAILY Synthroid (Levothyroxine Sodium) 88 Mcg Tablet 100 Mcg PO DAILY Latanoprost 2.5 Ml Drops 1 Drop EACHEYE QHS Allergies Allergies: Coded Allergies: Penicillins (Verified Allergy, Severe, DIFFICULTY BREATHING, 01/01/19) TOLERATES CEFEPIME Sulfa (Sulfonamide Antibiotics) (Verified Allergy, Intermediate, 05/07/18) oxycodone (Verified Allergy, Intermediate, Itching, 05/07/18) prednisone (Verified Allergy, Intermediate, 05/07/18) HARD TO BREATHE ROS Review of System CONSTITUTIONAL: No fever or chills EYES: No recent changes SKIN: No rash or itching CARDIOVASCULAR: No chest pain, syncope, palpitations, or edema RESPIRATORY: No SOB or cough GASTROINTESTINAL: No nausea, vomiting or abdominal pain NEUROLOGICAL: No headaches or weakness ENDOCRINE: No cold or heat intolerance GENITOURINARY: No urgency or frequency of urination MUSCULOSKELETAL: No back pain or joint pain LYMPHATICS: No enlarged lymph nodes PSYCHIATRIC: No anxiety or depression Physical Exam Physical Exam GENERAL: No apparent distress. Alert and oriented. HEENT: Head normocephalic, atraumatic. NECK: Supple LUNGS: Clear to auscultation. HEART: irregular irregular ABDOMEN: Soft, positive bowel sounds. EXTREMITIES: No cyanosis or edema. NEUROLOGIC: Normal speech, normal tone PSYCHIATRIC: Normal affect, normal mood. SKIN: No ulceration. Vitals Vitals Vital Signs Date Time Temp Pulse Resp B/P (MAP) Pulse Ox O2 Delivery O2 Flow Rate FiO2 04/03/20 07:00 98.2 123 18 148/84 (105) 98 Room Air 98.2 04/03/20 05:30 92.0 Labs Labs Laboratory Tests Test 04/03/20 02:40 04/03/20 06:40 04/03/20 10:12 White Blood Count 4.1 x10^3/uL (4.0-11.0) Red Blood Count 4.82 x10^6/uL (3.50-5.40) Hemoglobin 14.1 g/dL (12.0-15.5) Hematocrit 41.1 % (36.0-47.0) Mean Corpuscular Volume 85 fL (79-100) Mean Corpuscular Hemoglobin 29 pg (25-35) Mean Corpuscular Hemoglobin Concent 34 g/dL (31-37) Red Cell Distribution Width 13.1 % (11.5-14.5) Platelet Count 163 x10^3/uL (140-400) Neutrophils (%) (Auto) 70 % (31-73) Lymphocytes (%) (Auto) 14 % (24-48) Monocytes (%) (Auto) 13 % (0-9) Eosinophils (%) (Auto) 2 % (0-3) Basophils (%) (Auto) 0 % (0-3) Neutrophils # (Auto) 2.9 x10^3/uL (1.8-7.7) Lymphocytes # (Auto) 0.6 x10^3/uL (1.0-4.8) Monocytes # (Auto) 0.5 x10^3/uL (0.0-1.1) Eosinophils # (Auto) 0.1 x10^3/uL (0.0-0.7) Basophils # (Auto) 0.0 x10^3/uL (0.0-0.2) Prothrombin Time 12.0 SEC (11.7-14.0) Prothromb Time International Ratio 0.9 (0.8-1.1) Sodium Level 144 mmol/L (136-145) Potassium Level 3.3 mmol/L (3.5-5.1) Chloride Level 106 mmol/L (98-107) Carbon Dioxide Level 26 mmol/L (21-32) Anion Gap 12 (6-14) Blood Urea Nitrogen 14 mg/dL (7-20) Creatinine 1.3 mg/dL (0.6-1.0) Estimated GFR (Cockcroft-Gault) 41.9 BUN/Creatinine Ratio 11 (6-20) Glucose Level 145 mg/dL (70-99) Calcium Level 8.6 mg/dL (8.5-10.1) Magnesium Level 2.0 mg/dL (1.8-2.4) Total Bilirubin 0.3 mg/dL (0.2-1.0) Aspartate Amino Transf (AST/SGOT) 24 U/L (15-37) Alanine Aminotransferase (ALT/SGPT) 52 U/L (14-59) Alkaline Phosphatase 197 U/L (46-116) Troponin I Quantitative < 0.017 ng/mL (0.000-0.055) < 0.017 ng/mL (0.000-0.055) < 0.017 ng/mL (0.000-0.055) ET-Qpt-Z-Type Natriuretic Peptide 99 pg/mL (0-124) Total Protein 6.2 g/dL (6.4-8.2) Albumin 3.4 g/dL (3.4-5.0) Albumin/Globulin Ratio 1.2 (1.0-1.7) Thyroid Stimulating Hormone (TSH) 0.160 uIU/mL (0.358-3.74) Laboratory Tests Test 04/03/20 02:40 04/03/20 06:40 04/03/20 10:12 White Blood Count 4.1 x10^3/uL (4.0-11.0) Red Blood Count 4.82 x10^6/uL (3.50-5.40) Hemoglobin 14.1 g/dL (12.0-15.5) Hematocrit 41.1 % (36.0-47.0) Mean Corpuscular Volume 85 fL (79-100) Mean Corpuscular Hemoglobin 29 pg (25-35) Mean Corpuscular Hemoglobin Concent 34 g/dL (31-37) Red Cell Distribution Width 13.1 % (11.5-14.5) Platelet Count 163 x10^3/uL (140-400) Neutrophils (%) (Auto) 70 % (31-73) Lymphocytes (%) (Auto) 14 % (24-48) Monocytes (%) (Auto) 13 % (0-9) Eosinophils (%) (Auto) 2 % (0-3) Basophils (%) (Auto) 0 % (0-3) Neutrophils # (Auto) 2.9 x10^3/uL (1.8-7.7) Lymphocytes # (Auto) 0.6 x10^3/uL (1.0-4.8) Monocytes # (Auto) 0.5 x10^3/uL (0.0-1.1) Eosinophils # (Auto) 0.1 x10^3/uL (0.0-0.7) Basophils # (Auto) 0.0 x10^3/uL (0.0-0.2) Prothrombin Time 12.0 SEC (11.7-14.0) Prothromb Time International Ratio 0.9 (0.8-1.1) Sodium Level 144 mmol/L (136-145) Potassium Level 3.3 mmol/L (3.5-5.1) Chloride Level 106 mmol/L (98-107) Carbon Dioxide Level 26 mmol/L (21-32) Anion Gap 12 (6-14) Blood Urea Nitrogen 14 mg/dL (7-20) Creatinine 1.3 mg/dL (0.6-1.0) Estimated GFR (Cockcroft-Gault) 41.9 BUN/Creatinine Ratio 11 (6-20) Glucose Level 145 mg/dL (70-99) Calcium Level 8.6 mg/dL (8.5-10.1) Magnesium Level 2.0 mg/dL (1.8-2.4) Total Bilirubin 0.3 mg/dL (0.2-1.0) Aspartate Amino Transf (AST/SGOT) 24 U/L (15-37) Alanine Aminotransferase (ALT/SGPT) 52 U/L (14-59) Alkaline Phosphatase 197 U/L (46-116) Troponin I Quantitative < 0.017 ng/mL (0.000-0.055) < 0.017 ng/mL (0.000-0.055) < 0.017 ng/mL (0.000-0.055) RI-Szb-P-Type Natriuretic Peptide 99 pg/mL (0-124) Total Protein 6.2 g/dL (6.4-8.2) Albumin 3.4 g/dL (3.4-5.0) Albumin/Globulin Ratio 1.2 (1.0-1.7) Thyroid Stimulating Hormone (TSH) 0.160 uIU/mL (0.358-3.74) VTE Prophylaxis Ordered VTE Prophylaxis Devices: Yes VTE Pharmacological Prophylaxi: Yes Assessment/Plan Assessment/Plan ASESSMENT Chronic Persistent Atrial Fibrillation with RVR Hypothyroidism HTN Obesity PLAN admit to cardiac tele continue IV dig and IV cardizem. metoprolol po added per cards start xarelto for thromboembolic ppx. stop ASA TSH overcorrected. reduce dose of synthroid labs stable otherwise apprec cards dvt ppx: xarelto full code dispo: dc when HR controlled. Justicifation of Admission Dx: Justifications for Admission: Justification of Admission Dx: Yes CATRACHO JUNG MD Apr 03, 2020 12:01
[2020-04-03] MEDS ORDERED: ANTI-COAG MONITOR BY PHARMACY. MC PRN (15:00)
[2020-04-03] MEDS ORDERED: RIVAROXABAN 10 MG TABLET. PO SCH (17:00)
[2020-04-03] MEDS ORDERED: RIVAROXABAN 15 MG TABLET. PO SCH (17:00)
[2020-04-04 03:00] VITALS: BP 140/57
[2020-04-04] MEDS ORDERED: LEVOTHYROXINE 75 MCG TABLET PO SCH (06:00)
[2020-04-04 06:54] LABS: BASO % 1 % (0-3); EOS # 0.1 x10^3/uL (0.0-0.7); EOS % 3 % (0-3); HEMATOCRIT 38.5 % (36.0-47.0); HEMOGLOBIN 13.2 g/dL (12.0-15.5); LYMPH # 0.5 x10^3/uL (1.0-4.8); LYMPH % 18 % (24-48); MEAN CORPUSCULAR HEMOGLOBIN 29 pg (25-35); MEAN CORPUSCULAR HGB CONC 34 g/dL (31-37); MEAN CORPUSCULAR VOLUME 85 fL (79-100); MONO # 0.3 x10^3/uL (0.0-1.1); MONO % 12 % (0-9); NEUT # 1.8 x10^3/uL (1.8-7.7); NEUT % 66 % (31-73); PLATELET COUNT 158 x10^3/uL (140-400); RED BLOOD COUNT 4.51 x10^6/uL (3.50-5.40); RED CELL DISTRIBUTION WIDTH 13.3 % (11.5-14.5); WHITE BLOOD COUNT 2.8 x10^3/uL (4.0-11.0)
[2020-04-04 07:00] VITALS: BP 153/76
[2020-04-04 07:50] LABS: CALCIUM 8.1 mg/dL (8.5-10.1); GFR 56.7
[2020-04-04] MEDS: DULoxetine HCL 30 MG CAPSULE.DR PO SCH (08:23)
[2020-04-04] MEDS: METOPROLOL TART IMMED RELEASE 25 MG TABLET. PO SCH (08:23)
--- NOTE | 2020-04-04 10:57 | EKG ---
[facility] [address] [place] [address] Test Date: 2020-04-03 Test Time: 01:33:44 Pat Name: DEVAN LIU Department: Room: Gender: F Log Operations Coordinator: : 1960 Requested By: MICHAEL JOHNSON Order Number: [id number] Reading MD: Measurements Intervals [place] Rate: 211 P: VT: QRS: 0 QRSD: 76 T: 8 QT: 270 QTc: 509 Interpretive Statements IRREGULAR RHYTHM, NO P-WAVE FOUND LEFTWARD AXIS ST ABNORMALITY, POSSIBLE HIGH LATERAL SUBENDOCARDIAL INJURY INFERIOR SUBENDOCARDIAL INJURY ABNORMAL ECG RI6.02 No previous ECG available for comparison
[2020-04-04 11:00] VITALS: BP 145/67
--- NOTE | 2020-04-04 11:12 | PDOC ---
ABDIAS GONGORA ACTOR UNDERSTUDY 04/04/20 1112: CARDIO Progress Notes Date and Time Date of Service 04/04/20 Time of Evaluation 1015 Subjective Subjective: No Chest Pain, No shortness of breath, No Palpitations Vitals Vitals Vital Signs Date Time Temp Pulse Resp B/P (MAP) Pulse Ox O2 Delivery O2 Flow Rate FiO2 04/04/20 11:00 98.3 78 22 145/67 (93) 97 Room Air 98.3 Weight Weight [ ] Input and Output Intake and Output Intake and Output 04/04/20 07:00 Intake Total 640 ml Balance 640 ml Intake Oral 640 ml # Voids 5 Laboratory Labs Laboratory Tests Test 04/04/20 06:04 White Blood Count 2.8 x10^3/uL (4.0-11.0) Red Blood Count 4.51 x10^6/uL (3.50-5.40) Hemoglobin 13.2 g/dL (12.0-15.5) Hematocrit 38.5 % (36.0-47.0) Mean Corpuscular Volume 85 fL (79-100) Mean Corpuscular Hemoglobin 29 pg (25-35) Mean Corpuscular Hemoglobin Concent 34 g/dL (31-37) Red Cell Distribution Width 13.3 % (11.5-14.5) Platelet Count 158 x10^3/uL (140-400) Neutrophils (%) (Auto) 66 % (31-73) Lymphocytes (%) (Auto) 18 % (24-48) Monocytes (%) (Auto) 12 % (0-9) Eosinophils (%) (Auto) 3 % (0-3) Basophils (%) (Auto) 1 % (0-3) Neutrophils # (Auto) 1.8 x10^3/uL (1.8-7.7) Lymphocytes # (Auto) 0.5 x10^3/uL (1.0-4.8) Monocytes # (Auto) 0.3 x10^3/uL (0.0-1.1) Eosinophils # (Auto) 0.1 x10^3/uL (0.0-0.7) Basophils # (Auto) 0.0 x10^3/uL (0.0-0.2) Sodium Level 144 mmol/L (136-145) Potassium Level 4.0 mmol/L (3.5-5.1) Chloride Level 106 mmol/L (98-107) Carbon Dioxide Level 30 mmol/L (21-32) Anion Gap 8 (6-14) Blood Urea Nitrogen 14 mg/dL (7-20) Creatinine 1.0 mg/dL (0.6-1.0) Estimated GFR (Cockcroft-Gault) 56.7 Glucose Level 110 mg/dL (70-99) Calcium Level 8.1 mg/dL (8.5-10.1) Physical Exam Chest: Symmetric LUNGS: Clear to Auscultation Heart: S1S2, RRR Abdomen: Soft N/T Extremities: No Edema Neurology: alert, oriented, follow commands Assessment Assessment 1. PAFIB; converted back to SR overnight. HR controlled. 2. Hypertensive urgency; now controlled 3. Hypothyroidism. TSH 0.160. Adjustment as per PCP 4. Lymphoma Recommendations Decrease metoprolol to 25mg BID due to bradycardia Start flecainide for rhythm maintenance Xarelto for stroke prophylaxis. Outpatient echo to assess LV systolic function Outpatient event monitor has been arranged Follow up in our office as scheduled Justicifation of Admission Dx: Justifications for Admission: Justification of Admission Dx: Yes BRISEIDA LEROY MD 04/05/20 0813: CARDIO Progress Notes Plan Plan Late entry for 04/04/20 Pt. seen and examined. 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 Thanks ABDIAS GONGORA APRN Apr 04, 2020 11:12 BRISEIDA LEROY MD Apr 05, 2020 08:13
--- NOTE | 2020-04-04 12:23 | NUR ---
SS following for discharge planning. SS reviewed pt chart and discussed with pt RN. Pt is from home with spouse and is currently on room air. Possible discharge to home today. SS will continue to follow for discharge planning.
[2020-04-04] MEDS ORDERED: FLEC50TA PO (13:26)
[2020-04-04] MEDS ORDERED: METO25TA4 PO (13:27)
[2020-04-04] MEDS ORDERED: RIVA20TA2 PO (13:33)
--- NOTE | 2020-04-04 14:50 | NUR ---
Discharge Note: DEVAN LIU NOVI Discharge instructions and discharge home medications reviewed with Patient and a copy given. All questions have been answered and understanding verbalized.
[2020-04-04 15:00] VITALS: BP 145/74
[2020-04-04] MEDS ORDERED: METOPROLOL TART IMMED RELEASE 25 MG TABLET. PO SCH (21:00)
[2020-04-04] MEDS ORDERED: FLECAINIDE ACETATE 50 MG TABLET. PO SCH (21:00)
--- NOTE | 2020-04-05 09:09 | DS ---
DATE OF DISCHARGE: 04/04/2020 ADMISSION DIAGNOSES: 1. Atrial fibrillation. 2. History of lymphoma. DISCHARGE DIAGNOSES: 1. Resolving atrial fibrillation. 2. History of lymphoma, hypertension, hypothyroidism, overweight and previous atrial fibrillation, previous pneumonia, depression and osteoarthritis. HOSPITAL COURSE: The patient is a pleasant middle-aged female, who presented with AFib with RVR. She was admitted. We consulted Cardiology. We did serial enzymes, serial EKGs, cardiac monitoring. We did adjust her Synthroid as she seemed to be getting a little too much, her TSH was a little low. We also increased her metoprolol to 50 b.i.d. Yesterday, I saw her and examined her, she was at her baseline, heart tones were normal, lungs were clear, she was back in sinus rhythm. We discharged her to home with close outpatient followup. DISPOSITION: Home. ACTIVITY: As tolerated. DIET: Low sodium. MEDICATIONS: Please see the MRAD. TOTAL TIME: 34 minutes. CINTHYA NOLAN DO DR: RAMAKRISHNA/esme JOB#: [id number] / [id number]
== END 2020-04-04 16:19 | disposition home or self-care (01) | DRG 310 ==
LOC: ER 01:12 → 2 NORTH 02:25
PROVIDERS: ADMIT Internal Medicine; ATTEND Internal Medicine
DX: I48.19 Other persistent atrial fibrillation (principal); E03.9 Hypothyroidism, unspecified; E66.9 Obesity, unspecified; I10 Essential (primary) hypertension; I16.0 Hypertensive urgency; Z82.49 Family history of ischemic heart disease and other diseases of the circulatory system; Z87.01 Personal history of pneumonia (recurrent); Z90.710 Acquired absence of both cervix and uterus; F32.9 Major depressive disorder, single episode, unspecified; F41.9 Anxiety disorder, unspecified; M19.90 Unspecified osteoarthritis, unspecified site; Z85.72 Personal history of non-Hodgkin lymphomas; Z68.38 Body mass index [BMI] 38.0-38.9, adult; Z88.8 Allergy status to other drugs, medicaments and biological substances; Z88.0 Allergy status to penicillin; Z88.2 Allergy status to sulfonamides
CPT/HCPCS: 36415; 71045; 80048; 80053; 83735; 83880; 84443; 84484; 85025; 85610; 93005; 96361; 96365; 96375; 99291; J1160; J3490; J7040; G0378

== ENCOUNTER → 2020-04-05 | Outpatient (CLI) | payer BC ==
[2020-04-04 15:00] VITALS: BP 145/74
[~2020-04-05] MED LIST changes: +FLEC50TA PO; +RIVA20TA2 PO
--- NOTE | 2020-04-14 09:50 | RAD ---
EXAM: ABDOMINAL ULTRASOUND. HISTORY: Lymphoma. COMPARISON: 02/15/2020 and 12/18/2019 complete abdomen ultrasound. FINDINGS: Sonographic evaluation of the abdomen was performed. The liver appears normal in parenchymal echotexture. There are no focal lesions. The spleen measures 14.0 x 5.5 x 4.3 cm. Previously, it measured 13.7 x 4.7 x 5.5 cm on 02/15/2020, and 13.7 x 6.4 x 9.4 cm on 12/18/2019. Gallbladder is absent. The common duct measures 7 mm. Pancreas is obscured by bowel gas. The right kidney measures 12.2 x 4.9 x 5.3 cm. Cortical thickness and echogenicity are preserved. There is no hydronephrosis. The left kidney measures 10.2 x 3.7 x 4.6 cm. Cortical thickness and echogenicity are preserved. There is no hydronephrosis. The visualized portions of the abdominal aorta and inferior vena cava are grossly patent and normal in caliber. IMPRESSION: 1. Essentially stable splenomegaly postcholecystectomy. Electronically signed by: Ruperto Douglas MD (04/14/2020 9:47 AM) [id number]
== END | disposition home or self-care (01) ==
LOC: US 06:34
PROVIDERS: ATTEND Internal Medicine Hematology & Oncology
DX: R16.1 Splenomegaly, not elsewhere classified (principal); C85.80 Other specified types of non-Hodgkin lymphoma, unspecified site; Z90.49 Acquired absence of other specified parts of digestive tract
CPT/HCPCS: 76700

== ENCOUNTER → 2020-06-06 | Outpatient (CLI) | payer BC ==
--- NOTE | 2020-06-06 09:02 | RAD ---
CLINICAL HISTORY: Reason: SPLENOMEGALY / Spl. Instructions: / History: COMPARISON: 04/05/2020 TECHNIQUE: Ultrasound of the upper abdomen was performed. FINDINGS: The liver measures 16 cm in length in the right mid clavicular line. Increased hepatic echogenicity relative to the right kidney consistent with hepatic steatosis.. There are no focal liver lesions. Flow seen within the portal veins. There has been a cholecystectomy. The common bile duct measures 0.7 cm, normal in the postcholecystectomy state. The spleen is enlarged in size, measuring 12.5 centimeters, previously 14 cm. The head and body of the pancreas are unremarkable. The tail is obscured by intestinal gas.. The right kidney measures 11.3 cm in bipolar length. No focal renal lesion. No hydronephrosis. Normal renal cortical echotexture. The left kidney measures 11.2 cm in bipolar length. No focal renal lesion. No hydronephrosis. Normal renal cortical echotexture. Visualized portions of the abdominal aorta and inferior vena cava are unremarkable. There is no free fluid in the upper abdomen. IMPRESSION: 1. Splenomegaly, with mild interval decrease, now measuring 12.5 cm in length, previously 14 cm. 2. Echogenic appearance of the liver may be seen with fatty liver. Electronically signed by: Daniel Mallory MD (06/06/2020 8:59 AM) [facility]
== END | disposition home or self-care (01) ==
LOC: US 06:45
PROVIDERS: ATTEND Internal Medicine Hematology & Oncology
DX: C85.80 Other specified types of non-Hodgkin lymphoma, unspecified site (principal); K76.0 Fatty (change of) liver, not elsewhere classified; Z90.49 Acquired absence of other specified parts of digestive tract
CPT/HCPCS: 76700

== ENCOUNTER → 2020-06-10 | Outpatient (CLI) | payer BC ==
[2020-04-04 11:00] VITALS: BP_SYST 145
[2020-04-04 15:00] VITALS: BP_DIAS 74
--- NOTE | 2020-06-10 15:57 | CARD ---
MR#: [id number] Date of Study: 06/10/2020 Ordering Physician: BRISEIDA LEROY, Referring Physician: BRISEIDA LEROY, Tech: Susana Batista APPROVED REPORT EXAM: Two-dimensional and M-mode echocardiogram with Doppler and color Doppler. Other Information Quality : AverageHR: 76bpm INDICATION Atrial Fibrillation RISK FACTORS Hyperlipidemia 2D DIMENSIONS RVDd2.3 (2.9-3.5cm)Left Atrium(2D)3.3 (1.6-4.0cm) IVSd0.8 (0.7-1.1cm)Aortic Root(2D)2.5 (2.0-3.7cm) LVDd5.1 (3.9-5.9cm)LVOT Diameter2.0 (1.8-2.4cm) PWd1.0 (0.7-1.1cm)LVDs3.2 (2.5-4.0cm) FS (%) 38.5 %SV86.2 ml Aortic Valve AoV Peak Ari.133.6cm/sAoV VTI28.3cm AO Peak GR.7.1mmHgLVOT Peak Ari.103.9cm/s LVOT VTI 23.10cmAO Mean GR.4mmHg NATALIIA (VMAX)1.64pc8BWJ (VTI)2.63cm2 Mitral Valve MV E Kfwlprch73.0cm/sMV DECEL RWZV279sh MV A Qwbvtzab68.3cm/sMV E Mean Gr.3mmHg MV CDD88wyS/A Ratio1.0 MVA (PHT)3.42cm2 TDI E/Lateral E'9.7E/Medial E'9.9 Pulmonary Valve PV Peak Vezbhwue644.8cm/sPV Peak Grad.6mmHg Tricuspid Valve TR P. Jdsotlwg529ci/sRAP RFSGEAUY2nrHl TR Peak Gr.15fwMoYCZZ01xcGq Pulmonary Vein S1 Bdpyqldu78.5cm/sD2 Yybnphxg57.9cm/s PVa tfrafeno050rgnc LEFT VENTRICLE The left ventricle is normal size. There is normal left ventricular wall thickness. The left ventricu lar systolic function is normal and the ejection fraction is within normal range. The Ejection Fracti on is 55-60%. There is normal LV segmental wall motion. Transmitral Doppler flow pattern is Grade II- pseudonormal filling dynamics. RIGHT VENTRICLE The right ventricle is normal size. There is normal right ventricular wall thickness. The right ventr icular systolic function is normal. ATRIA The left atrium size is normal. The right atrium size is normal. The interatrial septum is intact wit h no evidence for an atrial septal defect or patent foramen ovale as noted on 2-D or Doppler imaging. AORTIC VALVE The aortic valve is thickened but opens well. Doppler and Color Flow revealed trace aortic regurgitat ion. Calculated aortic valve area is 2.42 cm2 with maximum pressure gradient of 8 mmHg and mean press ure gradient of 5 mmHg. There is no significant aortic valvular stenosis. MITRAL VALVE The mitral valve is normal in structure and function. There is no evidence of mitral valve prolapse. There is no mitral valve stenosis. Doppler and Color-flow revealed trace mitral regurgitation. TRICUSPID VALVE The tricuspid valve is normal in structure and function. Doppler and Color Flow revealed trace tricus pid regurgitation with an estimated PAP of 32 mmHg. There is no tricuspid valve stenosis. PULMONIC VALVE The pulmonic valve is not well visualized. Doppler and Color Flow revealed trace pulmonic valvular re gurgitation. GREAT VESSELS The aortic root is normal in size. The ascending aorta is normal in size. The IVC is normal in size a nd collapses >50% with inspiration. PERICARDIAL EFFUSION There is no evidence of significant pericardial effusion. Critical Notification Critical Value: No <Conclusion> The left ventricle is normal size. The left ventricular systolic function is normal and the ejection fraction is within normal range. The Ejection Fraction is 55-60%. Doppler and Color Flow revealed trace aortic regurgitation. There is no significant aortic valvular stenosis. Doppler and Color-flow revealed trace mitral regurgitation. Doppler and Color Flow revealed trace tricuspid regurgitation with an estimated PAP of 32 mmHg. Signed by : Levi Lara MD Electronically Approved : 06/10/2020 15:57:28
== END | disposition home or self-care (01) ==
LOC: ECHO 07:51
PROVIDERS: ATTEND Internal Medicine Cardiovascular Disease
DX: I48.91 Unspecified atrial fibrillation (principal); Z95.0 Presence of cardiac pacemaker
CPT/HCPCS: 93306

== ENCOUNTER 2020-12-14 15:52 | Emergency (ER) | payer BC ==
[~2020-12-14] VITALS: Ht 180.3 cm; Wt 118.8 kg
[2020-12-14 15:57] VITALS: BP 127/86
[2020-12-14] MEDS ORDERED: ONDANSETRON PF 4 MG/2 ML VIAL. IVP ONE (17:15)
[2020-12-14] MEDS ORDERED: MORPHINE SULFATE 10 MG/ML VIAL. IV ONE (17:15)
[2020-12-14] MEDS ORDERED: IV NORMAL SALINE 1000ML BAG 1,000 ML IV ONE (17:15)
--- NOTE | 2020-12-14 17:48 | ED.ADGEN ---
Past Medical History Past Medical History: A-Fib, Cancer, Glaucoma, Hypothyroid Additional Past Medical Histor: A-FIB W RVR Past Surgical History: Hysterectomy, Other Additional Past Surgical Histo: SINUS SURGERY ,R FOOT, L WRIST, port insertion, bone marrow biopsy Smoking Status: Never Smoker Alcohol Use: None Drug Use: None General Adult EDM: Chief Complaint: GI PROBLEM HPI: HPI: Patient is a 60 year old female with a history of lymphoma on chemotherapy who presents to the Emergency Room complaining of R sided lower abdominal pain that feels like a deep aching pain and intermittently has burning sensation that radiates to her back. This started yesterday and has been constant since that time. It does not seem to be getting better or worse. Nothing seems to help or make it better. She has been able to eat without difficulty. She had some mild diarrhea yesterday without any blood in her stools. She denies any nausea, vomiting, shortness of breath, URI symptoms. She did have a mildly elevated temperature with sweating this morning. She went to her primary care's office who recommended that she come to the emergency room for CT scan. Of note patient has had shingles twice. She states that this may feel similar. She does not currently have any rash or lesions. Review of Systems: Review of Systems: Complete ROS is negative unless otherwise documented in HPI Current Medications: Current Medications Medications (Trade) Dose Ordered Sig/Angeline Start Time Stop Time Status Last Admin Dose Admin Info (CONTRAST GIVEN -- Rx MONITORING) 1 each PRN DAILY PRN 12/14/20 18:45 12/14/20 21:22 DC Iohexol (Omnipaque 240 Mg/ml) 30 ml 1X ONCE 12/14/20 18:45 12/14/20 18:46 DC 12/14/20 18:45 30 ML Iohexol (Omnipaque 300 Mg/ml) 75 ml 1X ONCE 12/14/20 18:45 12/14/20 18:46 DC 12/14/20 18:45 75 ML Morphine Sulfate (Morphine Sulfate) 5 mg 1X ONCE 12/14/20 17:15 12/14/20 17:16 DC 12/14/20 17:51 5 MG Ondansetron HCl (Zofran) 4 mg 1X ONCE 12/14/20 17:15 12/14/20 17:16 DC 12/14/20 17:51 4 MG Sodium Chloride 1,000 ml @ 0 mls/hr Q0M ONCE 12/14/20 17:15 12/14/20 17:16 DC 12/14/20 17:49 999 MLS/HR Allergies: Allergies: Allergies Coded Allergies Type Severity Reaction Last Updated Verified Penicillins Allergy Severe DIFFICULTY BREATHING 01/01/19 Yes Sulfa (Sulfonamide Antibiotics) Allergy Intermediate 05/07/18 Yes oxycodone Allergy Intermediate Itching 05/07/18 Yes prednisone Allergy Intermediate 05/07/18 Yes Physical Exam: PE: General: Awake, alert, NAD. Well Nourished, well hydrated. Cooperative HEENT: Atraumatic, EOMI, PERRL, airway patent, moist oral mucosa Neck: Supple, trachea midline Respiratory: CTA bilaterally, normal effort, no wheezing/crackles CV: RRR, no murmur, cap refill <2 GI: Soft, nondistended, periumbilical and right lower quadrant tenderness, no masses MSK: No obvious deformities Skin: Warm, dry, intact Neuro: A&O x3, speech NL, sensory and motor grossly intact, no focal deficits Psych: Normal affect, normal mood, not suicidal or homicidal Current Patient Data: Labs: Laboratory Tests Test 12/14/20 17:40 12/14/20 19:05 White Blood Count 4.9 x10^3/uL (4.0-11.0) Red Blood Count 4.55 x10^6/uL (3.50-5.40) Hemoglobin 13.5 g/dL (12.0-15.5) Hematocrit 39.4 % (36.0-47.0) Mean Corpuscular Volume 87 fL (79-100) Mean Corpuscular Hemoglobin 30 pg (25-35) Mean Corpuscular Hemoglobin Concent 34 g/dL (31-37) Red Cell Distribution Width 13.6 % (11.5-14.5) Platelet Count 160 x10^3/uL (140-400) Neutrophils (%) (Auto) 72 % (31-73) Lymphocytes (%) (Auto) 14 % (24-48) L Monocytes (%) (Auto) 11 % (0-9) H Eosinophils (%) (Auto) 2 % (0-3) Basophils (%) (Auto) 1 % (0-3) Neutrophils # (Auto) 3.5 x10^3/uL (1.8-7.7) Lymphocytes # (Auto) 0.7 x10^3/uL (1.0-4.8) L Monocytes # (Auto) 0.6 x10^3/uL (0.0-1.1) Eosinophils # (Auto) 0.1 x10^3/uL (0.0-0.7) Basophils # (Auto) 0.0 x10^3/uL (0.0-0.2) Sodium Level 145 mmol/L (136-145) Potassium Level 3.7 mmol/L (3.5-5.1) Chloride Level 106 mmol/L (98-107) Carbon Dioxide Level 31 mmol/L (21-32) Anion Gap 8 (6-14) Blood Urea Nitrogen 10 mg/dL (7-20) Creatinine 0.9 mg/dL (0.6-1.0) Estimated GFR (Cockcroft-Gault) 63.9 BUN/Creatinine Ratio 11 (6-20) Glucose Level 90 mg/dL (70-99) Calcium Level 8.8 mg/dL (8.5-10.1) Total Bilirubin 0.7 mg/dL (0.2-1.0) Aspartate Amino Transferase (AST) 18 U/L (15-37) Alanine Aminotransferase (ALT) 36 U/L (14-59) Alkaline Phosphatase 142 U/L (46-116) H Total Protein 6.5 g/dL (6.4-8.2) Albumin 3.6 g/dL (3.4-5.0) Albumin/Globulin Ratio 1.2 (1.0-1.7) Lipase 58 U/L (73-393) L Urine Collection Type Unknown Urine Color Yellow Urine Clarity Clear Urine pH 6.0 (<5.0-8.0) Urine Specific Slaughters 1.010 (1.000-1.030) Urine Protein Negative mg/dL (NEG-TRACE) Urine Glucose (UA) Negative mg/dL (NEG) Urine Ketones (Stick) Negative mg/dL (NEG) Urine Blood Negative (NEG) Urine Nitrite Negative (NEG) Urine Bilirubin Negative (NEG) Urine Urobilinogen Dipstick 0.2 mg/dL (0.2 mg/dL) Urine Leukocyte Esterase Negative (NEG) Urine RBC 0 /HPF (0-2) Urine WBC Occ /HPF (0-4) Urine Squamous Epithelial Cells Few /LPF Urine Bacteria 0 /HPF (0-FEW) Urine Mucus Slight /LPF Urine Yeast Present /HPF Laboratory Tests 12/14/20 17:40 Laboratory Tests 12/14/20 17:40 Vital Signs: Vital Signs Date Time Temp Pulse Resp B/P (MAP) Pulse Ox O2 Delivery O2 Flow Rate FiO2 12/14/20 15:57 97.0 69 18 127/86 (100) 98 Room Air 97.0 EKG: EKG: [] Heart Score: C/O Chest Pain: N/A Risk Factors: Risk Factors: DM, Current or recent (<one month) smoker, HTN, HLP, family history of CAD, obesity. Risk Scores: Score 0 - 3: 2.5% MACE over next 6 weeks - Discharge Home Score 4 - 6: 20.3% MACE over next 6 weeks - Admit for Clinical Observation Score 7 - 10: 72.7% MACE over next 6 weeks - Early Invasive Strategies Radiology/Procedures: Radiology/Procedures: [] Course & Med Decision Making: Course & Med Decision Making Pertinent Labs and Imaging studies reviewed. (See chart for details) Patient is a 60 year-old female with a history of lymphoma who presents to the Emergency Room complaining of abdominal pain. On exam, patient has tenderness to her periumbilical and right lower quadrant. Due to patients history, age, and exam work up will need to be done to evaluate for intra-abdominal pathology. Work up ordered includes CBC, CMP, lipase, UA, CT abdomen and pelvis. Patient's pain is not epigastric and a cardiac evaluation will not be needed for atypical pain. Ddx includes diverticulitis, pancreatitis, gastroenteritis, shingles, kidney stone, pyelonephritis. Patient was given fluids, morphine, Zofran. Patient was discussed with oncoming physician Dr. Lu who will assume care. /////////////////// I assumed care of patient after comprehensive signout. I repeated aspects of history and physical exam and agree with findings as stated. Patient pending CT AP when I arrived. This was grossly negative for emergent/surgical pathology. Entire ER workup reviewed with patient. Discussed no obvious emergent/surgical findings but did disclose this might be an acute presentation of more serious pathology and so, close PCP follow-up for repeat evaluation is advised. Strict return precautions discussed and understood. Supportive care with extremely short RX pain medication prescribed on departure Electronically sundeep Nguyễn DO Madan 12/15/2020 1611 Tonya Disclaimer: Tonya Disclaimer: This electronic medical record was generated, in whole or in part, using a voice recognition dictation system. Departure Departure Impression: Primary Impression: Abdominal pain Disposition: 01 DC HOME SELF CARE/HOMELESS Condition: IMPROVED Referrals: ISRAEL QUIÑONES MD (PCP) Patient Instructions: Abdominal Pain (Nonspecific) Additional Instructions: You have been evaluated in the Emergency Department today for abdominal pain. Your evaluation was not suggestive of any emergent condition requiring medical intervention at this time. However, some abdominal problems make take more time to appear. Therefore, it is important for you to watch for any new symptoms or worsening of your current condition. As discussed, please call your primary care physician first thing in the morning to review ER visit today. Please watch for developing rash. As discussed, if symptoms do not resolve you might need to be referred out for other testing and/or specialist consultation Return to the Emergency Department if you experience worsening pain, persistent fevers greater than 100.4, recurrent vomiting, blood in vomit, blood in stool, dark tarry stool, chest pain, difficulty breathing, or any other concerning symptoms. Scripts Hydrocodone/Acetaminophen (Hydrocodone-Acetamin 7.5-325) 1 Each Tablet 1 EACH PO Q6-8HRS PRN for SEVERE PAIN 7-10, #15 TAB Prov: NGUYỄN LU DO 12/14/20 LC FERREIRA MD Dec 14, 2020 17:48 NGUYỄN LU DO Dec 14, 2020 20:55
[2020-12-14 18:00] LABS: BASO % 1 % (0-3); EOS # 0.1 x10^3/uL (0.0-0.7); EOS % 2 % (0-3); HEMATOCRIT 39.4 % (36.0-47.0); HEMOGLOBIN 13.5 g/dL (12.0-15.5); LYMPH # 0.7 x10^3/uL (1.0-4.8); LYMPH % 14 % (24-48); MEAN CORPUSCULAR HEMOGLOBIN 30 pg (25-35); MEAN CORPUSCULAR HGB CONC 34 g/dL (31-37); MEAN CORPUSCULAR VOLUME 87 fL (79-100); MONO # 0.6 x10^3/uL (0.0-1.1); MONO % 11 % (0-9); NEUT # 3.5 x10^3/uL (1.8-7.7); NEUT % 72 % (31-73); PLATELET COUNT 160 x10^3/uL (140-400); RED BLOOD COUNT 4.55 x10^6/uL (3.50-5.40); RED CELL DISTRIBUTION WIDTH 13.6 % (11.5-14.5); WHITE BLOOD COUNT 4.9 x10^3/uL (4.0-11.0)
[2020-12-14 18:18] LABS: CALCIUM 8.8 mg/dL (8.5-10.1); CREATININE 0.9 mg/dL (0.6-1.0); GFR 63.9; POTASSIUM 3.7 mmol/L (3.5-5.1)
[2020-12-14 18:24] LABS: ALBUMIN 3.6 g/dL (3.4-5.0); ALBUMIN/GLOBULIN RATIO 1.2 (1.0-1.7); TOTAL BILIRUBIN 0.7 mg/dL (0.2-1.0); TOTAL PROTEIN 6.5 g/dL (6.4-8.2)
[2020-12-14] MEDS ORDERED: IOHEXOL 300 MG/ML 100ML VIAL. IV ONE (18:45)
[2020-12-14] MEDS ORDERED: CONTRAST GIVEN. MC PRN (18:45)
[2020-12-14] MEDS ORDERED: IOHEXOL 240 MG/ML 50ML VIAL. PO ONE (18:45)
[2020-12-14 19:17] LABS: BILIRUBIN,URINE NEGATIVE (NEG); CLARITY,URINE CLEAR; COLOR,URINE YELLOW; NITRITE,URINE NEGATIVE (NEG); PROTEIN,URINE NEGATIVE (NEG-TRACE); UROBILINOGEN,URINE 0.2 mg/dL (0.2 mg/dL)
[2020-12-14 19:25] LABS: BACTERIA,URINE 0 /HPF (0-FEW); RBC,URINE 0 /HPF (0-2); WBC,URINE OCC /HPF (0-4); YEAST,URINE PRESENT /HPF
--- NOTE | 2020-12-14 19:42 | RAD ---
CT abdomen and pelvis with contrast: Reason for examination: Abdominal pain. Comparison is made to previous study dated 12/03/2018. Helical images were obtained through the abdomen and pelvis with intravenous administration of 75 cc Omnipaque 300 and 30 cc Omnipaque 240 orally. Reconstruction was performed in sagittal and coronal pl anes. Exposure: One or more of the following individualized dose reduction techniques were utilized for thi s examination: 1. Automated exposure control 2. Adjustment of the mA and/or kV according to patient size 3. Use of iterative reconstruction technique. There is some linear atelectasis at the left lung base. The heart size is normal with no pericardial effusion. The liver is normal in size and homogeneous in density. The spleen is enlarged at 12.8 cm but homogen eous and appears be slightly small than on previous exam. There is a 1.4 cm splenule at the splenic h ilum which appears to be slightly smaller than on previous exam. No abnormalities of seen at the adre nal glands or pancreas. Gallbladder surgically absent. The abdominal aorta and inferior vena cava alondra w no acute abnormalities. No abnormality seen at the stomach or duodenum. The small intestinal tract contains oral contrast and shows no abnormal dilatation, wall thickening or evidence of obstruction. No abnormality is seen at the appendix. Colon shows a few scattered diverticuli but no diverticulitis or colitis. The kidneys show no renal masses, renal calculi, hydronephrosis or evidence of obstructi ve uropathy. The bladder is not distended. No abnormality seen at the vaginal cuff. No pelvic masses are seen. No free fluid or free air seen in the abdomen or pelvis. There are some degenerative changes in the lumb ar spine but no acute bony abnormalities are seen. IMPRESSION: Linear atelectasis at the left lung base. Enlarged spleen at 12.8 cm but this is improved when compared to previous exam. Degenerative changes in the lumbar spine. A few diverticuli but no evidence of diverticulitis or colitis. No other acute abnormalities are seen in the abdomen or pelvis. Electronically signed by: Laura Sanders MD (12/14/2020 7:40 PM) YUN
[2020-12-14] MEDS ORDERED: HYDR-2763 PO (20:54)
== END 2020-12-14 21:22 | disposition home or self-care (01) ==
LOC: ER 15:52
DX: R10.31 Right lower quadrant pain (principal); R20.8 Other disturbances of skin sensation; R19.7 Diarrhea, unspecified; I48.20 Chronic atrial fibrillation, unspecified; E03.9 Hypothyroidism, unspecified; Z90.710 Acquired absence of both cervix and uterus; Z98.890 Other specified postprocedural states; Z88.0 Allergy status to penicillin; Z88.2 Allergy status to sulfonamides; Z88.5 Allergy status to narcotic agent; Z88.8 Allergy status to other drugs, medicaments and biological substances
CPT/HCPCS: 36415; 74177; 80053; 81001; 83690; 85025; 96361; 96374; 96375; 99285; J2270; J2405; J7030; Q9966; Q9967

== ENCOUNTER 2021-03-22 08:03 | Outpatient (CLI) | payer BC ==
[~2021-03-22] VITALS: Ht 172.7 cm; Wt 120.9 kg
[2021-03-22] VITALS (7 sets, daily range): BP systolic 157–198; BP diastolic 81–97
[~2021-03-22 08:03] MED LIST changes: -CLOT45CR4 VG; +CLOT45CR44 VG; +HYDR-2763 PO
[2021-03-22] MEDS ORDERED: vitamin D PO (08:38)
[2021-03-22] MEDS ORDERED: FERR325T14 PO (08:38)
[2021-03-22] MEDS ORDERED: ASCO500C PO (08:38)
[2021-03-22] MEDS ORDERED: LACT1CAP6 PO (08:38)
[2021-03-22] MEDS ORDERED: LEVO75TA90 PO (08:38)
[2021-03-22] MEDS ORDERED: LIDOCAINE 1%/EPI 1:100,000 20 ML VIAL. ONE (09:49)
[2021-03-22] MEDS ORDERED: MIDAZOLAM HCL/PF 2 MG/2 ML VIAL. ONE (10:01)
[2021-03-22] MEDS ORDERED: MIDAZOLAM HCL/PF 2 MG/2 ML VIAL. IV ONE (10:15)
[2021-03-22] MEDS ORDERED: LIDOCAINE 1%/EPI 1:100,000 20 ML VIAL. SQ ONE (10:15)
--- NOTE | 2021-03-22 11:04 | PDOC ---
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 Port removed in tact. Confirmed with X ray Disposition Disposition TO [facility] HUANG ANDREWS MD Mar 22, 2021 11:04
--- NOTE | 2021-03-22 11:43 | RAD ---
Removal of right internal jugular port 03/22/2021 10:09 AM Indication: Patient no longer requires central venous access is chemotherapy Discussion: The risks and benefits of the procedure including but limited to bleeding, catheter fragm entation, and infection were discussed the patient. Informed consent was obtained. The patient was br ought to the fluoroscopy suite and placed in the supine position. A time procedure was performed. The left chest was prepped using maximum sterile barrier technique. 1% lidocaine without epinephrine was administered for local anesthesia. Port was evaluated under fluoroscopy and found to be in normal po sition. A small incision was made overlying the port reservoir. The port reservoir and catheter were dissected, and removed intact. No overt evidence of infection was identified. The wound was closed us ing 4-0 Vicryl suture. Dermabond was applied overlying skin. Sterile dressings were applied. Inspecti on and fluoroscopy were performed confirming complete removal. Fluoroscopy time: 0.1 minutes Dose area product 4 yoli centimeter squared Impression: Removal of right internal jugular port Electronically signed by: Khai Torres MD (03/22/2021 11:41 AM) [id number]
--- NOTE | 2021-03-22 12:32 | NUR ---
PIV removed, no bleeding at port site. VS stable. Patient able to use restroom, eat lunch. Instructions provided on sedation, site care. Patient and verbalized understanding. Patient taken to car via wheelchair. driving home.
== END 2021-03-22 12:10 | disposition home or self-care (01) ==
LOC: INTRAD 08:03
PROVIDERS: ATTEND Internal Medicine Hematology & Oncology
DX: Z45.2 Encounter for adjustment and management of vascular access device (principal); C85.80 Other specified types of non-Hodgkin lymphoma, unspecified site; I10 Essential (primary) hypertension; I48.91 Unspecified atrial fibrillation; E66.9 Obesity, unspecified; E03.9 Hypothyroidism, unspecified; F41.9 Anxiety disorder, unspecified; F32.9 Major depressive disorder, single episode, unspecified; M19.90 Unspecified osteoarthritis, unspecified site; Z90.49 Acquired absence of other specified parts of digestive tract; Z90.710 Acquired absence of both cervix and uterus; Z98.890 Other specified postprocedural states; Z79.899 Other long term (current) drug therapy; Z79.82 Long term (current) use of aspirin; Z88.0 Allergy status to penicillin; Z88.1 Allergy status to other antibiotic agents; Z88.2 Allergy status to sulfonamides; Z88.8 Allergy status to other drugs, medicaments and biological substances
CPT/HCPCS: 36590; 77001; 99152; J2250; J3490

== ENCOUNTER 2021-05-13 23:19 | Emergency (ER) | payer BC ==
[~2021-05-13] VITALS: Ht 172.7 cm; Wt 120.9 kg
[~2021-05-13 23:19] MED LIST changes: +ASCO500C PO; +FERR325T14 PO; +LACT1CAP6 PO; +LEVO75TA90 PO; +vitamin D PO
--- NOTE | 2021-05-14 02:28 | ED.ADGEN ---
Past Medical History Past Medical History: A-Fib, Cancer, Glaucoma, Hypothyroid Additional Past Medical Histor: NONHODGKINS LYMPHOMA, AFIB RVR Past Surgical History: Hysterectomy Additional Past Surgical Histo: SINUS SURGERY ,R FOOT, L WRIST, port insertion, bone marrow biopsy Smoking Status: Never Smoker Alcohol Use: None Drug Use: None General Adult EDM: Chief Complaint: FLANK PAIN HPI: HPI: Patient is a 60 year old female coming in for 1 week of right flank and back pain. Gradually getting worse it used to be intermittent but has now become mo re constant. Saw her primary care provider 5 days ago and was given prescription for muscle relaxer and tramadol. Says it helps a little bit but came in tonight because pain was 10 and a 10 and she was unable to sleep. Had some nausea but no vomiting. Denies any diarrhea or constipation. Patient denies any dysuria but is unsure about hematuria because the use blue toilet tabs. She denies any history of kidney stones. Has a history of lymphoma and completed chemotherapy 2 months ago, and has not had her Covid vaccine because of chemotherapy and low white blood cell counts. Review of Systems: Review of Systems: All other systems within normal limits except for as noted in the HPI Current Medications: Current Medications Medications (Trade) Dose Ordered Sig/Angeline Start Time Stop Time Status Last Admin Dose Admin Fentanyl Citrate (Fentanyl 2ml Vial) 75 mcg 1X ONCE 05/14/21 03:00 05/14/21 03:01 DC 05/14/21 02:31 75 MCG Info (CONTRAST GIVEN -- Rx MONITORING) 1 each PRN DAILY PRN 05/14/21 03:45 05/16/21 03:44 Iohexol (Omnipaque 300 Mg/ml) 60 ml 1X ONCE 05/14/21 04:00 05/14/21 04:01 DC 05/14/21 04:14 60 ML Ondansetron HCl (Zofran) 4 mg 1X ONCE 05/14/21 03:00 05/14/21 03:01 DC 05/14/21 02:30 4 MG Allergies: Allergies: Allergies Coded Allergies Type Severity Reaction Last Updated Verified Penicillins Allergy Severe DIFFICULTY BREATHING 01/01/19 Yes Sulfa (Sulfonamide Antibiotics) Allergy Intermediate 05/07/18 Yes oxycodone Allergy Intermediate Itching 05/07/18 Yes prednisone Allergy Intermediate 8/22/18 Yes Physical Exam: PE: Constitutional: Well developed, well nourished, no acute distress, non-toxic appearance. [] HENT: Normocephalic, atraumatic, bilateral external ears normal, nose normal. [] Eyes: PERRLA, conjunctiva normal, no discharge. [] Neck: No rigidity, supple, no stridor. [] Cardiovascular: Regular rate and rhythm, brisk cap refill [] Lungs & Thorax: Non labored symmetric respirations, no tachypnea or respiratory distress [] Abdomen: Soft, nondistended. Skin: Warm, dry, no erythema, no rash. [] Back: Unremarkable, no point tenderness on spine, no step-off or deformity, tenderness over right paraspinous muscle Extremities: No deformities, range of motion grossly intact, no lower extremity edema [] Neurologic: Alert and oriented X 3, no focal deficits noted. [] Psychologic: Affect normal, judgement normal, mood normal. [] Current Patient Data: Labs: Laboratory Tests Test 05/14/21 01:30 05/14/21 02:09 Urine Collection Type Unknown Urine Color Yellow Urine Clarity Clear Urine pH 6.0 (<5.0-8.0) Urine Specific Mckinney 1.020 (1.000-1.030) Urine Protein Negative mg/dL (NEG-TRACE) Urine Glucose (UA) Negative mg/dL (NEG) Urine Ketones (Stick) Negative mg/dL (NEG) Urine Blood Negative (NEG) Urine Nitrite Negative (NEG) Urine Bilirubin Negative (NEG) Urine Urobilinogen Dipstick 1.0 mg/dL (0.2 mg/dL) Urine Leukocyte Esterase Negative (NEG) Urine RBC 0 /HPF (0-2) Urine WBC 0 /HPF (0-4) Urine Squamous Epithelial Cells Mod /LPF Urine Bacteria 0 /HPF (0-FEW) Urine Mucus Slight /LPF White Blood Count 4.1 x10^3/uL (4.0-11.0) Red Blood Count 4.73 x10^6/uL (3.50-5.40) Hemoglobin 14.3 g/dL (12.0-15.5) Hematocrit 40.8 % (36.0-47.0) Mean Corpuscular Volume 86 fL (79-100) Mean Corpuscular Hemoglobin 30 pg (25-35) Mean Corpuscular Hemoglobin Concent 35 g/dL (31-37) Red Cell Distribution Width 13.3 % (11.5-14.5) Platelet Count 170 x10^3/uL (140-400) Neutrophils (%) (Auto) 67 % (31-73) Lymphocytes (%) (Auto) 20 % (24-48) L Monocytes (%) (Auto) 10 % (0-9) H Eosinophils (%) (Auto) 2 % (0-3) Basophils (%) (Auto) 1 % (0-3) Neutrophils # (Auto) 2.8 x10^3/uL (1.8-7.7) Lymphocytes # (Auto) 0.8 x10^3/uL (1.0-4.8) L Monocytes # (Auto) 0.4 x10^3/uL (0.0-1.1) Eosinophils # (Auto) 0.1 x10^3/uL (0.0-0.7) Basophils # (Auto) 0.0 x10^3/uL (0.0-0.2) Sodium Level 142 mmol/L (136-145) Potassium Level 3.8 mmol/L (3.5-5.1) Chloride Level 103 mmol/L (98-107) Carbon Dioxide Level 31 mmol/L (21-32) Anion Gap 8 (6-14) Blood Urea Nitrogen 16 mg/dL (7-20) Creatinine 1.2 mg/dL (0.6-1.0) H Estimated GFR (Cockcroft-Gault) 45.8 BUN/Creatinine Ratio 13 (6-20) Glucose Level 97 mg/dL (70-99) Calcium Level 8.6 mg/dL (8.5-10.1) Total Bilirubin 0.5 mg/dL (0.2-1.0) Aspartate Amino Transferase (AST) 25 U/L (15-37) Alanine Aminotransferase (ALT) 51 U/L (14-59) Alkaline Phosphatase 190 U/L (46-116) H Total Protein 6.3 g/dL (6.4-8.2) L Albumin 4.1 g/dL (3.4-5.0) Albumin/Globulin Ratio 1.9 (1.0-1.7) H Laboratory Tests 05/14/21 02:09 Laboratory Tests 05/14/21 02:09 Vital Signs: Vital Signs Date Time Temp Pulse Resp B/P (MAP) Pulse Ox O2 Delivery O2 Flow Rate FiO2 05/14/21 03:27 74 184/88 (120) 95 Room Air 05/14/21 02:31 18 05/14/21 01:28 98.6 98.6 EKG: EKG: [] Heart Score: C/O Chest Pain: No Risk Factors: Risk Factors: DM, Current or recent (<one month) smoker, HTN, HLP, family history of CAD, obesity. Risk Scores: Score 0 - 3: 2.5% MACE over next 6 weeks - Discharge Home Score 4 - 6: 20.3% MACE over next 6 weeks - Admit for Clinical Observation Score 7 - 10: 72.7% MACE over next 6 weeks - Early Invasive Strategies Radiology/Procedures: Radiology/Procedures: [facility] [address] [place] [address] IMAGING REPORT Signed PATIENT: DEVAN LIU AACCOUNT: [id number] : 1960 LOCATION: ER AGE: 60 SEX: F EXAM STATUS: REG ER ORD. PHYSICIAN: JIL DAVIS MD REASON: right flank and RLQ pain, OMNI 300, 60 ML IV HX OF SPLEEN CA PROCEDURE: CT ABD PELV W/ IV CONTRST ONLY Exam: CT abdomen/pelvis with intravenous contrast Indication: Right flank pain and right lower quadrant pain Comparison: CT abdomen pelvis 12/14/2020 Technique: Helical CT imaging performed of the abdomen and pelvis after the intravenous administration of 60 mL Omnipaque 300 contrast. Sagittal and coronal reformats were obtained. One or more of the following individualized dose reduction techniques were utilized for this examination: 1. Automated exposure control 2. Adjustment of the mA and/or kV according to patient size 3. Use of iterative reconstruction technique. Findings: Lower chest: There is mild atelectasis in the lung bases. The heart is normal in size. Liver: Unremarkable. Gallbladder/Biliary Tree: Post cholecystectomy. Bile ducts are normal. Pancreas: Normal. Spleen: Normal Adrenal Glands: Normal. Kidneys/Ureters/Bladder: Kidneys are normal in size and enhance specially. No hydronephrosis. Ureters and bladder are normal. Reproductive Organs: Uterus is surgically absent. There is no adnexal mass. Stomach, small bowel, and colon: Stomach is normal. No small bowel obstruction. Colon is unremarkable. Probable normal appendix seen in the right lower quadrant (image [id number], series) no inflammation in the right lower quadrant. Vasculature: No aortic aneurysm. Lymph Nodes: No lymphadenopathy. Peritoneum and retroperitoneum: No free fluid or free air. Bones: No acute osseous abnormality. There is mild lumbar curvature and degenerative disc disease. Miscellaneous: Impression: 1. No acute abnormality in the abdomen and pelvis. 2. Probable normal appendix. No inflammation in the right lower quadrant. Electronically signed by: Jil Zelaya MD (05/14/2021 5:51 AM) [id number] DICTATED and SIGNED BY: JIL ZELAYA MD DATE: 05/14/21 [id number] [] Course & Med Decision Making: Course & Med Decision Making Pertinent Labs and Imaging studies reviewed. (See chart for details) [] Dragon Disclaimer: Dragon Disclaimer: This electronic medical record was generated, in whole or in part, using a voice recognition dictation system. Departure Departure Impression: Primary Impression: Flank pain Disposition: HOME / SELF CARE / HOMELESS Condition: STABLE Referrals: ISRAEL QUIÑONES MD (PCP) Patient Instructions: Back Pain, Adult Scripts Hydrocodone Bit/Acetaminophen (HYDROCODONE-APAP 5-325 ) 1 Tab Tablet 1-2 TAB PO PRN Q6HRS PRN for PAIN for 3 Days, #12 TAB 0 Refills Prov: JIL DAVIS MD 05/14/21 JIL DAVIS MD May 14, 2021 02:28
[2021-05-14 02:46] LABS: BASO % 1 % (0-3); EOS # 0.1 x10^3/uL (0.0-0.7); EOS % 2 % (0-3); HEMATOCRIT 40.8 % (36.0-47.0); HEMOGLOBIN 14.3 g/dL (12.0-15.5); LYMPH # 0.8 x10^3/uL (1.0-4.8); LYMPH % 20 % (24-48); MEAN CORPUSCULAR HEMOGLOBIN 30 pg (25-35); MEAN CORPUSCULAR HGB CONC 35 g/dL (31-37); MEAN CORPUSCULAR VOLUME 86 fL (79-100); MONO # 0.4 x10^3/uL (0.0-1.1); MONO % 10 % (0-9); NEUT # 2.8 x10^3/uL (1.8-7.7); NEUT % 67 % (31-73); PLATELET COUNT 170 x10^3/uL (140-400); RED BLOOD COUNT 4.73 x10^6/uL (3.50-5.40); RED CELL DISTRIBUTION WIDTH 13.3 % (11.5-14.5); WHITE BLOOD COUNT 4.1 x10^3/uL (4.0-11.0)
[2021-05-14 02:49] LABS: BILIRUBIN,URINE NEGATIVE (NEG); CLARITY,URINE CLEAR; COLOR,URINE YELLOW; NITRITE,URINE NEGATIVE (NEG); PROTEIN,URINE NEGATIVE (NEG-TRACE)
[2021-05-14 02:57] LABS: CALCIUM 8.6 mg/dL (8.5-10.1); CREATININE 1.2 mg/dL (0.6-1.0); GFR 45.8; POTASSIUM 3.8 mmol/L (3.5-5.1)
[2021-05-14] MEDS ORDERED: fentaNYL PF VIAL 100 MCG/2 ML VIAL IVP ONE (03:00)
[2021-05-14] MEDS ORDERED: ONDANSETRON PF 4 MG/2 ML VIAL. IVP ONE (03:00)
[2021-05-14 03:03] LABS: ALBUMIN 4.1 g/dL (3.4-5.0); ALBUMIN/GLOBULIN RATIO 1.9 (1.0-1.7); TOTAL BILIRUBIN 0.5 mg/dL (0.2-1.0); TOTAL PROTEIN 6.3 g/dL (6.4-8.2)
[2021-05-14 03:05] LABS: BACTERIA,URINE 0 /HPF (0-FEW); RBC,URINE 0 /HPF (0-2); WBC,URINE 0 /HPF (0-4)
[2021-05-14] MEDS ORDERED: CONTRAST GIVEN. MC PRN (03:45)
[2021-05-14] MEDS ORDERED: IOHEXOL 300 MG/ML 100ML VIAL. IV ONE (04:00)
--- NOTE | 2021-05-14 05:53 | RAD ---
Exam: CT abdomen/pelvis with intravenous contrast Indication: Right flank pain and right lower quadrant pain Comparison: CT abdomen pelvis 12/14/2020 Technique: Helical CT imaging performed of the abdomen and pelvis after the intravenous administratio n of 60 mL Omnipaque 300 contrast. Sagittal and coronal reformats were obtained. One or more of the following individualized dose reduction techniques were utilized for this examinat ion: 1. Automated exposure control 2. Adjustment of the mA and/or kV according to patient size 3. Use of iterative reconstruction technique. Findings: Lower chest: There is mild atelectasis in the lung bases. The heart is normal in size. Liver: Unremarkable. Gallbladder/Biliary Tree: Post cholecystectomy. Bile ducts are normal. Pancreas: Normal. Spleen: Normal Adrenal Glands: Normal. Kidneys/Ureters/Bladder: Kidneys are normal in size and enhance specially. No hydronephrosis. Ureters and bladder are normal. Reproductive Organs: Uterus is surgically absent. There is no adnexal mass. Stomach, small bowel, and colon: Stomach is normal. No small bowel obstruction. Colon is unremarkable . Probable normal appendix seen in the right lower quadrant (image [id number], series) no inflammation in the right lower quadrant. Vasculature: No aortic aneurysm. Lymph Nodes: No lymphadenopathy. Peritoneum and retroperitoneum: No free fluid or free air. Bones: No acute osseous abnormality. There is mild lumbar curvature and degenerative disc disease. Miscellaneous: Impression: 1. No acute abnormality in the abdomen and pelvis. 2. Probable normal appendix. No inflammation in the right lower quadrant. Electronically signed by: Jil Zelaya MD (05/14/2021 5:51 AM) [id number]
[2021-05-14 05:57] VITALS: BP 181/95
[2021-05-14] MEDS ORDERED: HYDR-2761 PO (06:07)
[2021-05-14] MEDS ORDERED: HYDROcodone/APAP 10/325 1 TAB TABLET PO ONE (06:30)
== END 2021-05-14 06:32 | disposition home or self-care (01) ==
LOC: ER 23:19
DX: R10.31 Right lower quadrant pain (principal); I48.91 Unspecified atrial fibrillation; E03.9 Hypothyroidism, unspecified; Z88.0 Allergy status to penicillin; Z88.2 Allergy status to sulfonamides; Z88.5 Allergy status to narcotic agent
CPT/HCPCS: 36415; 74177; 80053; 81001; 85025; 96374; 96375; 99285; J2405; J3010; Q9967

== ENCOUNTER 2021-07-22 22:20 | Emergency (ER) | payer BC ==
[~2021-07-22] VITALS: Ht 175.3 cm; Wt 111.5 kg
[~2021-07-22 22:20] MED LIST changes: +HYDR-2761 PO; +POTA-121 PO; -POTA20TA4 PO
[2021-07-22 22:25] VITALS: BP 207/91
--- NOTE | 2021-07-22 22:37 | PHYS DOC ---
Past Medical History Past Medical History: A-Fib, Cancer, Glaucoma, Hypothyroid Additional Past Medical Histor: NONHODGKINS LYMPHOMA, AFIB RVR (ABRAHAM GARCIA DIAMOND PICKER) Past Surgical History: Hysterectomy Additional Past Surgical Histo: SINUS SURGERY ,R FOOT, L WRIST, port insertion, bone marrow biopsy (ABRAHAM GARCIA DIAMOND PICKER) Smoking Status: Never Smoker Alcohol Use: None Drug Use: None (ABRAHAM GARCIA DIAMOND PICKER) General Adult EDM: Chief Complaint: MECHANICAL FALL HPI: HPI: Patient is a 60 year old female who presents to the ED today complaining of 8 out of 10 left knee pain and right foot pain that began today after she stepped on a curb wrong and fell at a . Patient describes the pain as throbbing and intermittent worse on certain movements and weightbearing to the right foot. Patient denies hitting her head on the ground. Denies any loss of consciousness. (ABRAHAM GARCIA DIAMOND PICKER) Review of Systems: Review of Systems: Constitutional: Denies fever or chills. [] Musculoskeletal: Reports left knee and right foot pain Integument: Denies rash. [] Neurologic: Denies headache, focal weakness or sensory changes. [] Psychiatric: Denies depression or anxiety. [] (ABRAHAM GARCIA DIAMOND PICKER) Heart Score: C/O Chest Pain: N/A Risk Factors: Risk Factors: DM, Current or recent (<one month) smoker, HTN, HLP, family history of CAD, obesity. Risk Scores: Score 0 - 3: 2.5% MACE over next 6 weeks - Discharge Home Score 4 - 6: 20.3% MACE over next 6 weeks - Admit for Clinical Observation Score 7 - 10: 72.7% MACE over next 6 weeks - Early Invasive Strategies (ABRAHAM GARCIA DIAMOND PICKER) Current Medications: Current Medications Medications (Trade) Dose Ordered Sig/Angeline Start Time Stop Time Status Last Admin Dose Admin Acetaminophen (Tylenol) 1,000 mg 1X ONCE 07/22/21 22:30 07/22/21 22:31 UNV Naproxen (Naprosyn) 500 mg 1X STAT 07/22/21 22:30 07/22/21 22:31 UNV (ABRAHAM GARCIA DIAMOND PICKER) Allergies: Allergies: Allergies Coded Allergies Type Severity Reaction Last Updated Verified Penicillins Allergy Severe DIFFICULTY BREATHING 01/01/19 Yes Sulfa (Sulfonamide Antibiotics) Allergy Intermediate 05/07/18 Yes oxycodone Allergy Intermediate Itching 05/07/18 Yes prednisone Allergy Intermediate 05/07/18 Yes (ABRAHAM GARCIA DIAMOND PICKER) Physical Exam: PE: Constitutional: Well developed, well nourished, no acute distress, non-toxic appearance. [] Skin: Warm, dry, no erythema, no rash. [] Back: No tenderness, no CVA tenderness. [] Extremities: Left anterior knee with bruising. Tenderness on palpation of the l eft anterior knee, full range of motion to the left knee, negative Neto sign, negative Kevin sign, negative anterior posterior drawer sign, +2 left pedal pulse. Right foot with no obvious deformity, no bruising, tenderness on top of the foot, no navicular bone tenderness of tenderness on the base of the fifth metatarsal of the right foot. +2 right pedal pulse. Range of motion to the right foot is intact. Cap refill less than 2 seconds to right toes Neurologic: Alert and oriented X 3, normal motor function, normal sensory function, no focal deficits noted. [] Psychologic: Affect normal, judgement normal, mood normal. [] (ABRAHAM GARCIA DIAMOND PICKER) Current Patient Data: Vital Signs: Vital Signs Date Time Temp Pulse Resp B/P (MAP) Pulse Ox O2 Delivery O2 Flow Rate FiO2 07/22/21 22:25 99.1 115 20 207/91 (129) 99 Room Air 99.1 (ABRAHAM GARCIA DIAMOND PICKER) EKG: EKG: [] (ABRAHAM GARCIA APRN) Radiology/Procedures: Radiology/Procedures: []PROCEDURE: KNEE LEFT 3V Exam: Left knee 3 views INDICATION: Fall, pain TECHNIQUE: Frontal, lateral and oblique views of the left knee Comparisons: None FINDINGS: Soft tissue swelling overlying the patella. Bone mineralization is normal. No acute or healed fractures. Joint spaces are well-maintained. IMPRESSION: Soft tissue swelling overlying the patella without underlying osseous abnormality identified. Electronically signed by: Paco Grayson MD (07/22/2021 11:09 PM) [facility] DICTATED and SIGNED BY: PACO GRAYSON MD DATE: 07/22/21 [id number] PROCEDURE: FOOT RIGHT 3V Exam: Right foot 3 views INDICATION: Fall, pain TECHNIQUE: Frontal, lateral and oblique views of the right foot Comparisons: None FINDINGS: Osteotomy changes at the first metatarsal head with fixation screw noted. There is mild osteoarthritic change at the first MTP joint. Bone mineralization is normal. No acute or healed fractures. Joint spaces are otherwise well-maintain ed. IMPRESSION: No acute osseous abnormality identified. Electronically signed by: Paco Grayson MD (07/22/2021 11:10 PM) [facility] DICTATED and SIGNED BY: PACO GRAYSON MD DATE: 07/22/21 [id number] (ABRAHAM GARCIA DIAMOND PICKER) Course & Med Decision Making: Course & Med Decision Making Pertinent Labs and Imaging studies reviewed. (See chart for details) This a 60-year-old female patient presenting to the ED today with left knee pain and right foot pain after falling today. Left knee and right foot x-rays interpreted by radiologist are negative for any acute findings. Bandar bandage is applied to the right foot and left knee by me. Neurovascular exam done by me is normal. Ice elevation encouraged. Patient states she already has an appointment with an orthopedic doctor for other issues next week. (ABRAHAM GARCIA DIAMOND PICKER) Dragon Disclaimer: Dragon Disclaimer: This electronic medical record was generated, in whole or in part, using a voice recognition dictation system. (ABRAHAM GARCIA DIAMOND PICKER) Departure Departure Impression: Primary Impression: Fall from standing Qualified Codes: W19.XXXA - Unspecified fall, initial encounter Additional Impressions: Right foot sprain Qualified Codes: S93.601A - Unspecified sprain of right foot, initial encounter Contusion of left knee Qualified Codes: S80.02XA - Contusion of left knee, initial encounter Disposition: HOME / SELF CARE / HOMELESS Condition: STABLE Referrals: ISRAEL QUIÑONES MD (PCP) Follow-up with orthopedic doctor as scheduled Patient Instructions: Contusion, [id number], Foot Sprain-Brief Additional Instructions: You were evaluated in the emergency room after falling, your left foot x-rays and right knee x-rays are negative for any acute findings. Please follow-up with your orthopedic doctor as scheduled. Try to ice and elevate the affected extremities. Please take [id number] pain relievers as needed Attending Signature Attending Signature I have reviewed the PA/SOCIAL WORK ADMINISTRATOR's note and plan of care. I was available for consultation as needed during the patient's visit in the emergency department. I agree with the clinical impression, plan, and disposition. (SILVIO AGUILAR DO) ABRAHAM GARCIA APRN Jul 22, 2021 22:37 SILVIO AGUILAR DO Jul 23, 2021 00:40
[2021-07-22] MEDS ORDERED: NAPROXEN 500 MG TABLET PO ONE (23:00)
[2021-07-22] MEDS ORDERED: ACETAMINOPHEN 500 MG TABLET PO ONE (23:00)
--- NOTE | 2021-07-22 23:12 | RAD ---
Exam: Left knee 3 views INDICATION: Fall, pain TECHNIQUE: Frontal, lateral and oblique views of the left knee Comparisons: None FINDINGS: Soft tissue swelling overlying the patella. Bone mineralization is normal. No acute or healed fractur es. Joint spaces are well-maintained. IMPRESSION: Soft tissue swelling overlying the patella without underlying osseous abnormality identified. Electronically signed by: Paco Lobo MD (07/22/2021 11:09 PM) [facility]
--- NOTE | 2021-07-22 23:13 | RAD ---
Exam: Right foot 3 views INDICATION: Fall, pain TECHNIQUE: Frontal, lateral and oblique views of the right foot Comparisons: None FINDINGS: Osteotomy changes at the first metatarsal head with fixation screw noted. There is mild osteoarthriti c change at the first MTP joint. Bone mineralization is normal. No acute or healed fractures. Joint s paces are otherwise well-maintained. IMPRESSION: No acute osseous abnormality identified. Electronically signed by: Paco Lobo MD (07/22/2021 11:10 PM) [facility]
== END 2021-07-22 23:55 | disposition home or self-care (01) ==
LOC: ER 22:20
DX: S93.601A Unspecified sprain of right foot, initial encounter (principal); S80.02XA Contusion of left knee, initial encounter; I48.91 Unspecified atrial fibrillation; E03.9 Hypothyroidism, unspecified; Z88.0 Allergy status to penicillin; Z88.2 Allergy status to sulfonamides; Z88.5 Allergy status to narcotic agent; Z88.8 Allergy status to other drugs, medicaments and biological substances; W18.39XA Other fall on same level, initial encounter; Y93.89 Activity, other specified; Y92.89 Other specified places as the place of occurrence of the external cause; Y99.8 Other external cause status
CPT/HCPCS: 73562; 73630; 99283; 99284; A6450

== ENCOUNTER 2021-10-12 10:39 | Inpatient (IN) | payer BC ==
[~2021-10-12] VITALS: Ht 175.3 cm; Wt 108.9 kg
--- NOTE | 2021-10-12 11:41 | EKG ---
[facility] [address] [place] [address] Test Date: 2021-10-12 Test Time: 11:31:41 Pat Name: DEVAN LIU Department: Room: Gender: F Rn L And D: : 1960 Requested By: SILVIO AGUILAR Order Number: [id number] Reading MD: Scotty Head Measurements Intervals [place] Rate: 101 P: -51 [place]: 122 QRS: -17 QRSD: 86 T: 7 QT: 362 QTc: 470 Interpretive Statements SINUS TACHYCARDIA LEFTWARD AXIS CONSIDER LEFT VENTRICULAR HYPERTROPHY Electronically Signed On 10-13-2021 12:59:40 CONTROL CLERK SUBASSEMBLY by Scotty Head
--- NOTE | 2021-10-12 11:51 | PHYS DOC ---
Past Medical History Past Medical History: A-Fib, Cancer, Glaucoma, Hypothyroid Additional Past Medical Histor: NONHODGKINS LYMPHOMA, AFIB RVR Past Surgical History: Hysterectomy Additional Past Surgical Histo: SINUS SURGERY ,R FOOT, L WRIST, port insertion, bone marrow biopsy Smoking Status: Never Smoker Alcohol Use: None Drug Use: None General Adult EDM: Chief Complaint: COUGH HPI: HPI: Patient is a 61-year-old female with a history of metastatic non-Hodgkin's lymphoma presents to the ER for cough and fever x4 weeks. Patient states that she was diagnosed with Covid on September 20, 2021 since then she has been through multiple courses of treatment such as methylprednisone, azithromycin, and doxycycline. Nothing has seemed to help her symptoms besides rest, movement wor sens her cough clear-colored sputum is a cold occasionally associated with her cough. The patient denies any other associated symptoms at this time. Denies leg swelling or calf tenderness. Review of Systems: Review of Systems: Constitutional: Complains of fever and chills, reports 20lb weight loss in the last month Eyes: Denies redness or eye pain HENT: Denies nasal congestion or sore throat Respiratory: Reports cough and shortness of breath Cardiovascular: Reports some chest pain; denies palpitations GI: Denies abdominal pain, nausea, or vomiting : Denies dysuria or hematuria Musculoskeletal: Denies back pain or joint pain Integument: Denies rash or skin lesions Neurologic: Denies headache, focal weakness or sensory changes Complete systems were reviewed and found to be within normal limits, except as documented in this note. Heart Score: C/O Chest Pain: Yes HEART Score for Chest Pain: HEART Score for Chest Pain Response (Comments) Value History Slighlty/Non-Suspicious 0 ECG Normal 0 Age >45 - < 65 1 Risk Factors 1 or 2 Risk Factors 1 Troponin < Normal Limit 0 Total 2 Current Medications: Current Medications Medications (Trade) Dose Ordered Sig/Angeline Start Time Stop Time Status Last Admin Dose Admin Sodium Chloride 1,000 ml @ 1,000 mls/hr Q1H 10/12/21 11:30 10/12/21 12:29 UNV Allergies: Allergies: Allergies Coded Allergies Type Severity Reaction Last Updated Verified Penicillins Allergy Severe DIFFICULTY BREATHING 01/01/19 Yes Sulfa (Sulfonamide Antibiotics) Allergy Intermediate 05/07/18 Yes hydrocodone Allergy Intermediate 07/22/21 Yes oxycodone Allergy Intermediate Itching 05/07/18 Yes prednisone Allergy Intermediate 05/07/18 Yes tizanidine Allergy Intermediate 07/22/21 Yes Physical Exam: PE: Constitutional: Well developed, ill appearance, anxiety HENT: Normocephalic, atraumatic Eyes: Conjunctiva normal, no discharge Neck: Normal range of motion, no tenderness, supple Lungs & Thorax: No respiratory distress, equal chest rise and fall, CTAB Abdomen: Soft, no tenderness, minimal splenomegaly Skin: Warm, dry, no erythema, no rash Back: No tenderness, no CVA tenderness Extremities: No tenderness, ROM intact, no edema Neurologic: Alert and oriented X 3, normal motor function, normal sensory function, no focal deficits noted Psychologic: Affect anxious, judgment normal Current Patient Data: Vital Signs: Vital Signs Date Time Temp Pulse Resp B/P (MAP) Pulse Ox O2 Delivery O2 Flow Rate FiO2 10/12/21 11:26 115 18 160/95 (116) 90 Room Air 10/12/21 11:03 99.0 99.0 EKG: EKG: @1131 Sinus Tachycardia, normal rhythm. Rate @101bpm, QT/QTc: 362/470. NO ST SEGMENT ELEVATION Radiology/Procedures: Radiology/Procedures: PROCEDURE: CT ANGIOGRAPHY CHEST EXAM: CT chest with contrast - pulmonary embolus protocol CLINICAL HISTORY: Reason: dyspnea, chest pain, eval for PE, hx of COVID / Spl. Instructions: omni 350 85ml / History: . COMPARISON: 12/03/2018 06/23/2018 TECHNIQUE: CT of the chest following the administration of intravenous contrast during the pulmonary arterial phase. Axial, coronal and sagittal reformatted images were generated including MIP images. ---PQRS compliance statement - One or more of the following individualized dose reduction techniques were utilized for this study: 1. Automated exposure control 2. Adjustment of the mA and/or kV according to patient size 3. Use of iterative reconstruction technique--- FINDINGS: CHEST: Diagnostic quality: Suboptimal contrast bolus limits evaluation. Pulmonary emboli: No pulmonary emboli to the level of the lobar branches. More peripheral vessels are not well assessed. Right heart strain: None Pulmonary arteries: Normal in caliber. Heart is not enlarged. No pericardial effusion. No pleural effusion. No pneumothorax. Mildly prominent mediastinal and hilar lymph nodes are seen, reactive. No axillary lymphadenopathy. Patchy solid and groundglass airspace opacities in the perihilar region and lower lobes likely consolidative process as pneumonia. Visualized Upper abdomen: Hepatic hypoattenuation fatty liver or related to contrast bolus. Cholecystectomy clips are seen. Bones: No aggressive osseous lesion is seen. Multilevel degenerative changes of the spine are seen. IMPRESSION: 1. Suboptimal contrast bolus with evaluation. Within these constraints no pulmonary emboli are seen to the level of the lobar branches. More peripheral vessels are not well assessed. 2. Patchy solid and groundglass airspace opacities in the perihilar region and lower lobes likely consolidative process such as viral pneumonia. Imaging foll ow-up to resolution is recommended. 3. Prominent mediastinal and hilar lymph nodes likely reactive. Electronically signed by: Daniel Mallory MD (10/12/2021 1:16 PM) [facility] Course & Med Decision Making: Course & Med Decision Making Pertinent Labs and Imaging studies reviewed. (See chart for details) Patient presents to the ED with a chief complaint of fever and cough associated with her recent COVID-19 diagnosis on September 20, 2021. Patient requiring supplemental oxygen at 2 L nasal cannula primarily because when patient ambulated to the bathroom she desatted down to the 60s on pulse oximetry. Carlos A nt was found to have positive SIRS criteria with source of infection. Labs obtained and posted to chart. Lactic acid elevated. CTA chest obtained without signs of PE but noted Covid pneumonia. Patient meet criteria for severe sepsis. IV fluid bolusing provided based on ideal body weight. Empiric antibiotics provided. Patient requiring admission for further evaluation and treatment. Discussed with Dr. Hernandes (hospitalist) who is in agreement with admission. Discussed findings and plan with patient, who acknowledges understanding and agreement. COVID-19 CRITERIA: The patient was evaluated during the global COVID-19 pandemic, and that diagnosis was suspected/considered upon their initial presentation. Their evaluation, treatment and testing was consistent with current guidelines for patients who present with complaints or symptoms that may be related to COVID-19. Dragon Disclaimer: Dragon Disclaimer: This electronic medical record was generated, in whole or in part, using a voice recognition dictation system. Departure Departure Impression: Primary Impression: Severe sepsis Additional Impressions: Pneumonia due to COVID-19 virus Respiratory failure Qualified Codes: J96.01 - Acute respiratory failure with hypoxia Hypokalemia Disposition: 09 ADMITTED INPATIENT Admitting Physician: ANAND Gutierrez) Condition: GUARDED Referrals: ISRAEL QUIÑONES MD (PCP) Date and Time of Reassessment Date: Oct 12, 2021 Time: 14:00 Fluid Challenge Is the fluid challenge complet: No IBW Target Volume Used: Yes BMI > 30: Yes Vital Signs Vital Signs: Vital Signs Date Time Temp Pulse Resp B/P (MAP) Pulse Ox O2 Delivery O2 Flow Rate FiO2 10/12/21 13:45 98.8 96 20 155/83 (107) 96 Nasal Cannula 2.0 98.8 Temperature Source: Axillary Respirations Respiratory Effort: Non-Labored Respiratory Pattern: Tachypnea Cardiovascular Pulse Rhythm: Regular Heart: S1 and S2 normal Lung Sounds Breath Sounds: Clear Capillary Refil Capillary Refill: Rt Hand < 3 seconds Peripheral Pulse Pulse Location: Radial Pulse Strength: Normal (2+) Pulse Assessment Method: Palpation Integumentary Skin: Warm, Dry Skin Moisture: Dry Skin Turgor: Normal Skin Color: warm, dry Fingernail Color: WNL Critical Care Time Critical care time was 30 minutes which includes time at bedside, spent in discussion of patient's care with specialists and/or family members, with interpretation of laboratory and/or radiological studies and is exclusive of procedures. SILVIO AGUILAR DO Oct 12, 2021 11:50
[2021-10-12] MEDS ORDERED: ASPIRIN ENTERIC COATED 325 MG TABLET.DR. PO ONE (12:00)
[2021-10-12] MEDS ORDERED: IV NORMAL SALINE 1000ML BAG 1,000 ML IV SCH (12:00)
[2021-10-12 12:17] LABS: BASO % 0 % (0-3); EOS % 0 % (0-3); HEMATOCRIT 39.4 % (36.0-47.0); HEMOGLOBIN 13.3 g/dL (12.0-15.5); LYMPH # 1.2 x10^3/uL (1.0-4.8); LYMPH % 18 % (24-48); MEAN CORPUSCULAR HEMOGLOBIN 28 pg (25-35); MEAN CORPUSCULAR HGB CONC 34 g/dL (31-37); MEAN CORPUSCULAR VOLUME 82 fL (79-100); MONO # 0.5 x10^3/uL (0.0-1.1); MONO % 8 % (0-9); NEUT % 74 % (31-73); PLATELET COUNT 241 x10^3/uL (140-400); RED BLOOD COUNT 4.81 x10^6/uL (3.50-5.40); RED CELL DISTRIBUTION WIDTH 12.9 % (11.5-14.5); WHITE BLOOD COUNT 6.7 x10^3/uL (4.0-11.0)
[2021-10-12 12:25] LABS: CALCIUM 8.8 mg/dL (8.5-10.1); CREATININE 1.1 mg/dL (0.6-1.0); GFR 50.5; POTASSIUM 3.1 mmol/L (3.5-5.1)
[2021-10-12 12:30] LABS: ALBUMIN 2.6 g/dL (3.4-5.0); ALBUMIN/GLOBULIN RATIO 0.6 (1.0-1.7); TOTAL BILIRUBIN 0.5 mg/dL (0.2-1.0); TOTAL PROTEIN 6.7 g/dL (6.4-8.2)
[2021-10-12 12:33] LABS: INFLUENZA A PATIENT NEGATIVE (NEGATIVE); INFLUENZA B PATIENT NEGATIVE (NEGATIVE)
[2021-10-12] MEDS ORDERED: IOHEXOL 350 MG/ML 100 ML VIAL. IV ONE (12:45)
[2021-10-12] MEDS ORDERED: CONTRAST GIVEN. MC PRN (12:45)
--- NOTE | 2021-10-12 13:19 | RAD ---
EXAM: CT chest with contrast - pulmonary embolus protocol CLINICAL HISTORY: Reason: dyspnea, chest pain, eval for PE, hx of COVID / Spl. Instructions: omni 350 85ml / History: . COMPARISON: 12/03/2018 06/23/2018 TECHNIQUE: CT of the chest following the administration of intravenous contrast during the pulmonary arterial phase. Axial, coronal and sagittal reformatted images were generated including MIP images. ---PQRS compliance statement - One or more of the following individualized dose reduction techniques were utilized for this study: 1. Automated exposure control 2. Adjustment of the mA and/or kV according to patient size 3. Use of iterative reconstruction technique--- FINDINGS: CHEST: Diagnostic quality: Suboptimal contrast bolus limits evaluation. Pulmonary emboli: No pulmonary emboli to the level of the lobar branches. More peripheral vessels ar e not well assessed. Right heart strain: None Pulmonary arteries: Normal in caliber. Heart is not enlarged. No pericardial effusion. No pleural effusion. No pneumothorax. Mildly prominent mediastinal and hilar lymph nodes are seen, reactive. No axillary lymphadenopathy. Patchy solid and groundglass airspace opacities in the perihilar region and lower lobes likely consol idative process as pneumonia. Visualized Upper abdomen: Hepatic hypoattenuation fatty liver or related to contrast bolus. Cholecys tectomy clips are seen. Bones: No aggressive osseous lesion is seen. Multilevel degenerative changes of the spine are seen. IMPRESSION: 1. Suboptimal contrast bolus with evaluation. Within these constraints no pulmonary emboli are seen to the level of the lobar branches. More peripheral vessels are not well assessed. 2. Patchy solid and groundglass airspace opacities in the perihilar region and lower lobes likely co nsolidative process such as viral pneumonia. Imaging follow-up to resolution is recommended. 3. Prominent mediastinal and hilar lymph nodes likely reactive. Electronically signed by: Daniel Mallory MD (10/12/2021 1:16 PM) [facility]
[2021-10-12 13:29] LABS: BILIRUBIN,URINE NEGATIVE (NEG); CLARITY,URINE CLEAR; COLOR,URINE YELLOW; NITRITE,URINE NEGATIVE (NEG); PH,URINE 6.5 (<5.0-8.0); PROTEIN,URINE NEGATIVE (NEG-TRACE); UROBILINOGEN,URINE 0.2 mg/dL (0.2 mg/dL)
[2021-10-12 13:36] LABS: HYALINE CASTS, URINE MANY /HPF
[2021-10-12 13:38] LABS: RBC,URINE OCC /HPF (0-2)
[2021-10-12 13:39] LABS: AMORPHOUS SEDIMENT,UR PRESENT /HPF; BACTERIA,URINE FEW /HPF (0-FEW)
[2021-10-12] MEDS ORDERED: AZTREONAM IV Push 2 GM VIAL. IVP ONE (14:30)
[2021-10-12] MEDS ORDERED: levOFLOXacin PER PHARMACY. MC PRN ×2 (14:30→15:15)
[2021-10-12] MEDS ORDERED: IV NORMAL SALINE 1000ML BAG 1,000 ML IV ONE (14:30)
[2021-10-12] MEDS ORDERED: ONDANSETRON PF 4 MG/2 ML VIAL. IVP PRN ×2 (14:45→15:00)
[2021-10-12] MEDS ORDERED: ACETAMINOPHEN 325 MG TABLET. PO PRN (14:45)
[2021-10-12] MEDS ORDERED: PIP/TAZO PER PHARMACY MC PRN (14:45)
[2021-10-12] MEDS ORDERED: oxyCODONE/APAP 5/325 1 TAB TABLET PO PRN ×2 (15:00)
[2021-10-12] MEDS: DEXAMETHASONE SOD PHOS 4 MG/ML VIAL IVP SCH (15:48)
[2021-10-12] MEDS: HEPARIN for SUB-Q USE 5,000 UNIT/ML VIAL. SQ SCH ×2 (15:50→21:55)
[2021-10-12] MEDS ORDERED: POTASSIUM CHLORIDE 20 MEQ TABLET.ER. PO ONE (18:00)
--- NOTE | 2021-10-12 18:03 | PDOC1 ---
History and Physical Date of Service: DOS: DATE: 10/12/21 TIME: 17:58 Chief Complaint: Chief Complain: SOB History of Present Illness: HPI: Patient is a 61-year-old female with a history of metastatic non-Hodgkin's lymphoma presents to the ER for cough and fever x4 weeks. Patient states that she was diagnosed with Covid on September 20, 2021 since then she has been through multiple courses of treatment such as methylprednisone azithromycin and doxycycline. Nothing has seemed to help her symptoms besides rest, movement worsens her cough, clear-colored sputum occasionally associated with her cough. The patient denies any other associated symptoms at this time. Evaluated in the emergency room patient was resting in bed and a little bit distress. Agreeable to admission. Covid treatment. We will also cover for bacterial pneumonia Past Medical/Surgical History: PMH/PSH: Past Medical History: A-Fib, Cancer, Glaucoma, Hypothyroid Additional Past Medical Histor: NONHODGKINS LYMPHOMA, AFIB RVR Past Surgical History: Hysterectomy Additional Past Surgical Histo: SINUS SURGERY ,R FOOT, L WRIST, port insertion, bone marrow biopsy Smoking Status: Never Smoker Alcohol Use: None Drug Use: None Allergies: Allergies: Coded Allergies: Penicillins (Verified Allergy, Severe, DIFFICULTY BREATHING, 01/01/19) TOLERATES CEFEPIME Sulfa (Sulfonamide Antibiotics) (Verified Allergy, Intermediate, 05/07/18) hydrocodone (Verified Allergy, Intermediate, 07/22/21) oxycodone (Verified Allergy, Intermediate, Itching, 05/07/18) prednisone (Verified Allergy, Intermediate, 05/07/18) HARD TO BREATHE tizanidine (Verified Allergy, Intermediate, 07/22/21) Family History: Family History: Hypertension Current Medications: Current Medications Current Medications Sodium Chloride 1,000 ml @ 1,000 mls/hr Q1H IV Last administered on 10/12/21at 12:06; Start 10/12/21 at 12:00; Stop 10/12/21 at 12:59; Status DC Aspirin (Ecotrin) 325 mg 1X ONCE PO Last administered on 10/12/21at 12:06; Start 10/12/21 at 12:00; Stop 10/12/21 at 12:01; Status DC Iohexol (Omnipaque 350 Mg/ml) 85 ml 1X ONCE IV Last administered on 10/12/21at 12:55; Start 10/12/21 at 12:45; Stop 10/12/21 at 12:46; Status DC Info (CONTRAST GIVEN -- Rx MONITORING) 1 each PRN DAILY PRN MC SEE COMMENTS; Start 10/12/21 at 12:45; Stop 10/14/21 at 12:44 Aztreonam (Azactam) 2 gm 1X ONCE IVP Last administered on 10/12/21at 14:51; Start 10/12/21 at 14:30; Stop 10/12/21 at 14:37; Status DC Levofloxacin/ Dextrose (Levaquin Per Pharmacy) 1 each PRN DAILY PRN MC SEE COMMENTS; Start 10/12/21 at 14:30; Status UNV Sodium Chloride 1,000 ml @ 1,000 mls/hr 1X ONCE IV Last administered on 10/12/21at 14:49; Start 10/12/21 at 14:30; Stop 10/12/21 at 15:29; Status DC Levofloxacin/ Dextrose 150 ml @ 100 mls/hr 1X ONCE IV Last administered on 10/12/21at 15:02; Start 10/12/21 at 15:00; Stop 10/12/21 at 16:29; Status DC Ondansetron HCl (Zofran) 4 mg PRN Q8HRS PRN IVP NAUSEA/VOMITING; Start 10/12/21 at 14:45; Stop 10/13/21 at 14:44 Acetaminophen (Tylenol) 650 mg PRN Q4HRS PRN PO FEVER > 100.3'F Last administered on 10/12/21at 17:36; Start 10/12/21 at 14:45; Stop 10/13/21 at 14:44 Piperacillin Sod/ Tazobactam Sod (Zosyn Per Pharmacy) 1 each PRN DAILY PRN MC SEE COMMENTS; Start 10/12/21 at 14:45; Stop 10/12/21 at 15:10; Status DC Dexamethasone Sodium Phosphate (Decadron) 6 mg DAILY IVP Last administered on 10/12/21at 15:48; Start 10/12/21 at 15:00 Aspirin (Aspirin Chewable) 81 mg DAILY PO ; Start 10/13/21 at 09:00 Duloxetine HCl (Cymbalta) 30 mg DAILY PO ; Start 10/13/21 at 09:00 Flecainide Acetate (Tambocor) 50 mg BID PO ; Start 10/12/21 at 21:00 Latanoprost (Xalatan) 1 drop QHS OU ; Start 10/12/21 at 21:00 Levothyroxine Sodium (Synthroid) 75 mcg DAILY06 PO ; Start 10/13/21 at 06:00 Metoprolol Tartrate (Lopressor) 25 mg BID PO ; Start 10/12/21 at 21:00 Ondansetron HCl (Zofran) 4 mg PRN Q6HRS PRN IVP NAUSEA/VOMITING; Start 10/12/21 at 15:00 Calcium Carbonate/ Glycine (Tums) 500 mg PRN Q3HRS PRN PO UPSET STOMACH; Start 10/12/21 at 15:00 Zolpidem Tartrate (Ambien) 5 mg PRN QHS PRN PO INSOMNIA, MAY REPEAT IN 1HR; Start 10/12/21 at 15:00 Oxycodone/ Acetaminophen (Percocet 5/325) 1 tab PRN Q4HRS PRN PO MILD PAIN, 1ST CHOICE; Start 10/12/21 at 15:00 Oxycodone/ Acetaminophen (Percocet 5/325) 2 tab PRN Q4HRS PRN PO MODERATE PAIN, SEVERE PAIN; Start 10/12/21 at 15:00 Senna/Docusate Sodium (Senna Plus) 1 tab BID PO ; Start 10/12/21 at 21:00 Heparin Sodium (Porcine) (Heparin Sodium) 5,000 unit Q8HRS SQ Last administered on 10/12/21at 15:50; Start 10/12/21 at 15:00 Levofloxacin/ Dextrose (Levaquin Per Pharmacy) 1 each PRN DAILY PRN MC SEE COMMENTS; Start 10/12/21 at 15:15 Levofloxacin/ Dextrose 150 ml @ 100 mls/hr Q24H IV ; Start 10/13/21 at 15:00 Active Scripts Active Hydrocodone-Apap 5-325 (Hydrocodone Bit/Acetaminophen) 1 Tab Tablet 1-2 Tab PO PRN Q6HRS PRN 3 Days Reported Probiotic (Lactobacillus Acidophilus) 1 Each Capsule 1 Cap PO DAILY 10 Days [vitamin D] 125 Mcg PO DAILY Vitamin C (Ascorbic Acid) 500 Mg Capsule.er 1 Cap PO BID PRN 30 Days Ferrous Sulfate 325 Mg Tablet 1 Tab PO BID Synthroid (Levothyroxine Sodium) 75 Mcg Tablet 1 Tab PO DAILY Metoprolol Tartrate 25 Mg Tablet 1 Tab PO BID Flecainide Acetate 50 Mg Tablet 50 Mg PO BID Biotin 10,000 Mcg Capsule 10,000 Mcg PO DAILY Multivitamins (Multivitamin) 1 Each Tablet 1 Each PO DAILY Cymbalta (Duloxetine Hcl) 30 Mg Capsule.dr 1 Cap PO DAILY Aspirin 81 Mg Tab.chew 1 Tab PO DAILY Latanoprost 2.5 Ml Drops 1 Drop EACHEYE QHS ROS: Review of Systems Review of System Unless noted in HPI 14 point review of systems was negative Physical Exam: Vital Signs: Vital Signs Date Time Temp Pulse Resp B/P (MAP) Pulse Ox O2 Delivery O2 Flow Rate FiO2 10/12/21 17:29 101.1 119 24 178/77 (110) 94 Nasal Cannula 2.0 101.1 Physcial Exam: GEN: No apparent distress. Alert and oriented HEENT: Normal cephalic, atraumatic, external auditory canals are patent EYES: Extraocular muscles are intact, pupil are equally round and reactive to light and accommodation MUSCULOSKELETAL: Well developed , well nourished, good range of motion ENDOCRINE: No thyromegaly was palpated LYMPHATICS: No cervical chain or axillary nodes were noted HEMATOPOIETIC: No bruising NECK: Supple, no JVD, no thyromegaly was noted LUNGS: decreased and coarse throughout HEART: RRR, S!, S2 present. Peripheral pulses intact, no obvious murmurs noted ABDOMEN: Soft, nontender. Positive bowel sounds, no organomegaly, normal bowel sounds EXTREMITIES: Without clubbing, cyanosis, or edema. Pedal pulses intact. Negative Homans sign NEUROLOGIC: Normal speech and tone. A&O x 3, moves all extremities, no obvious focal deficits PSYCHIATRIC: Normal affect, normal mood. Stable SKIN: No ulcerations or rashes, good skin turgor, no jaundice VASCULAR: Good capillary refill, neurovascular bundle appears to be intact Labs: Labs: Laboratory Tests Test 10/12/21 11:42 10/12/21 11:58 10/12/21 13:16 White Blood Count 6.7 x10^3/uL (4.0-11.0) Red Blood Count 4.81 x10^6/uL (3.50-5.40) Hemoglobin 13.3 g/dL (12.0-15.5) Hematocrit 39.4 % (36.0-47.0) Mean Corpuscular Volume 82 fL (79-100) Mean Corpuscular Hemoglobin 28 pg (25-35) Mean Corpuscular Hemoglobin Concent 34 g/dL (31-37) Red Cell Distribution Width 12.9 % (11.5-14.5) Platelet Count 241 x10^3/uL (140-400) Neutrophils (%) (Auto) 74 % (31-73) Lymphocytes (%) (Auto) 18 % (24-48) Monocytes (%) (Auto) 8 % (0-9) Eosinophils (%) (Auto) 0 % (0-3) Basophils (%) (Auto) 0 % (0-3) Neutrophils # (Auto) 5.0 x10^3/uL (1.8-7.7) Lymphocytes # (Auto) 1.2 x10^3/uL (1.0-4.8) Monocytes # (Auto) 0.5 x10^3/uL (0.0-1.1) Eosinophils # (Auto) 0.0 x10^3/uL (0.0-0.7) Basophils # (Auto) 0.0 x10^3/uL (0.0-0.2) Sodium Level 140 mmol/L (136-145) Potassium Level 3.1 mmol/L (3.5-5.1) Chloride Level 101 mmol/L (98-107) Carbon Dioxide Level 26 mmol/L (21-32) Anion Gap 13 (6-14) Blood Urea Nitrogen 15 mg/dL (7-20) Creatinine 1.1 mg/dL (0.6-1.0) Estimated GFR (Cockcroft-Gault) 50.5 BUN/Creatinine Ratio 14 (6-20) Glucose Level 147 mg/dL (70-99) Lactic Acid Level 3.3 mmol/L (0.4-2.0) Calcium Level 8.8 mg/dL (8.5-10.1) Magnesium Level 2.0 mg/dL (1.8-2.4) Total Bilirubin 0.5 mg/dL (0.2-1.0) Aspartate Amino Transf (AST/SGOT) 40 U/L (15-37) Alanine Aminotransferase (ALT/SGPT) 53 U/L (14-59) Alkaline Phosphatase 270 U/L (46-116) Creatine Kinase 174 U/L (26-192) Creatine Kinase MB (Mass) 1.0 ng/mL (0.0-3.6) Creatine Kinase MB Relative Index 0.6 % (0-4) Troponin I High Sensitivity 9 ng/L (4-50) ZM-Ppw-L-Type Natriuretic Peptide 65 pg/mL (0-124) Total Protein 6.7 g/dL (6.4-8.2) Albumin 2.6 g/dL (3.4-5.0) Albumin/Globulin Ratio 0.6 (1.0-1.7) Lipase 32 U/L (73-393) Influenza Type A Antigen Negative (NEGATIVE) Influenza Type B Antigen Negative (NEGATIVE) Urine Collection Type Void Urine Color Yellow Urine Clarity Clear Urine pH 6.5 (<5.0-8.0) Urine Specific [place] >=1.030 (1.000-1.030) Urine Protein Negative mg/dL (NEG-TRACE) Urine Glucose (UA) Negative mg/dL (NEG) Urine Ketones (Stick) Negative mg/dL (NEG) Urine Blood Negative (NEG) Urine Nitrite Negative (NEG) Urine Bilirubin Negative (NEG) Urine Urobilinogen Dipstick 0.2 mg/dL (0.2 mg/dL) Urine Leukocyte Esterase Negative (NEG) Urine RBC Occ /HPF (0-2) Urine WBC 1-4 /HPF (0-4) Urine Squamous Epithelial Cells Mod /LPF Urine Amorphous Sediment Present /HPF Urine Bacteria Few /HPF (0-FEW) Urine Hyaline Casts Many /HPF Urine Mucus Mod /LPF Laboratory Tests Test 10/12/21 11:42 10/12/21 11:58 10/12/21 13:16 White Blood Count 6.7 x10^3/uL (4.0-11.0) Red Blood Count 4.81 x10^6/uL (3.50-5.40) Hemoglobin 13.3 g/dL (12.0-15.5) Hematocrit 39.4 % (36.0-47.0) Mean Corpuscular Volume 82 fL (79-100) Mean Corpuscular Hemoglobin 28 pg (25-35) Mean Corpuscular Hemoglobin Concent 34 g/dL (31-37) Red Cell Distribution Width 12.9 % (11.5-14.5) Platelet Count 241 x10^3/uL (140-400) Neutrophils (%) (Auto) 74 % (31-73) Lymphocytes (%) (Auto) 18 % (24-48) Monocytes (%) (Auto) 8 % (0-9) Eosinophils (%) (Auto) 0 % (0-3) Basophils (%) (Auto) 0 % (0-3) Neutrophils # (Auto) 5.0 x10^3/uL (1.8-7.7) Lymphocytes # (Auto) 1.2 x10^3/uL (1.0-4.8) Monocytes # (Auto) 0.5 x10^3/uL (0.0-1.1) Eosinophils # (Auto) 0.0 x10^3/uL (0.0-0.7) Basophils # (Auto) 0.0 x10^3/uL (0.0-0.2) Sodium Level 140 mmol/L (136-145) Potassium Level 3.1 mmol/L (3.5-5.1) Chloride Level 101 mmol/L (98-107) Carbon Dioxide Level 26 mmol/L (21-32) Anion Gap 13 (6-14) Blood Urea Nitrogen 15 mg/dL (7-20) Creatinine 1.1 mg/dL (0.6-1.0) Estimated GFR (Cockcroft-Gault) 50.5 BUN/Creatinine Ratio 14 (6-20) Glucose Level 147 mg/dL (70-99) Lactic Acid Level 3.3 mmol/L (0.4-2.0) Calcium Level 8.8 mg/dL (8.5-10.1) Magnesium Level 2.0 mg/dL (1.8-2.4) Total Bilirubin 0.5 mg/dL (0.2-1.0) Aspartate Amino Transf (AST/SGOT) 40 U/L (15-37) Alanine Aminotransferase (ALT/SGPT) 53 U/L (14-59) Alkaline Phosphatase 270 U/L (46-116) Creatine Kinase 174 U/L (26-192) Creatine Kinase MB (Mass) 1.0 ng/mL (0.0-3.6) Creatine Kinase MB Relative Index 0.6 % (0-4) Troponin I High Sensitivity 9 ng/L (4-50) [id number]-[id number]-Type Natriuretic Peptide 65 pg/mL (0-124) Total Protein 6.7 g/dL (6.4-8.2) Albumin 2.6 g/dL (3.4-5.0) Albumin/Globulin Ratio 0.6 (1.0-1.7) Lipase 32 U/L (73-393) Influenza Type A Antigen Negative (NEGATIVE) Influenza Type B Antigen Negative (NEGATIVE) Urine Collection Type Void Urine Color Yellow Urine Clarity Clear Urine pH 6.5 (<5.0-8.0) Urine Specific [place] >=1.030 (1.000-1.030) Urine Protein Negative mg/dL (NEG-TRACE) Urine Glucose (UA) Negative mg/dL (NEG) Urine Ketones (Stick) Negative mg/dL (NEG) Urine Blood Negative (NEG) Urine Nitrite Negative (NEG) Urine Bilirubin Negative (NEG) Urine Urobilinogen Dipstick 0.2 mg/dL (0.2 mg/dL) Urine Leukocyte Esterase Negative (NEG) Urine RBC Occ /HPF (0-2) Urine WBC 1-4 /HPF (0-4) Urine Squamous Epithelial Cells Mod /LPF Urine Amorphous Sediment Present /HPF Urine Bacteria Few /HPF (0-FEW) Urine Hyaline Casts Many /HPF Urine Mucus Mod /LPF Assessment/Plan Assessment/Plan Acute hypoxic respiratory failure secondary to COVID-19 pneumonia with possible superimposed bacterial pneumonia, history non-Hodgkin's lymphoma hypothyroid glaucoma A. fib -Admit to hospitalist -COVID treatments 6 mg Decadron daily. Given allergies and antibiotic history will continue Levaquin started in ER. Out of window for remdesivir -Provide Combivent inhaler as needed -Wean O2 as tolerated -Home medications resumed as indicated -DVT prophylaxis -Advance diet as tolerated -We will hold off on PT OT and see how she does Justifications for Admission Other Justification HAO GARAY MD Oct 12, 2021 18:03
[2021-10-12] MEDS ORDERED: hydrALAZINE 20 MG/ML VIAL. IVP PRN (18:15)
[2021-10-12 19:58] VITALS: BP 156/82
[2021-10-12] MEDS: SENNOSIDES/DOCUSATE 8.6/50MG TABLET. PO SCH (21:00)
[2021-10-12] MEDS: LATANOPROST 0.005% OPHTH SOLUTION 2.5ML BOTTLE. OU SCH (21:00)
[2021-10-12 23:18] VITALS: BP 153/81
[2021-10-13] MEDS: METOPROLOL TART IMMED RELEASE 25 MG TABLET. PO SCH ×3 (00:21→22:15)
[2021-10-13] MEDS: FLECAINIDE ACETATE 50 MG TABLET. PO SCH ×3 (00:22→22:15)
[2021-10-13] MEDS ORDERED: guaiFENesin/CODEINE 100mg/10mg 5 ML LIQUID PO PRN (00:30)
[2021-10-13 03:18] VITALS: BP 151/76
[2021-10-13] MEDS: LEVOTHYROXINE 75 MCG TABLET PO SCH (05:43)
[2021-10-13] MEDS: HEPARIN for SUB-Q USE 5,000 UNIT/ML VIAL. SQ SCH ×3 (05:44→22:17)
[2021-10-13] MEDS ORDERED: LEVOTHYROXINE 75 MCG TABLET PO SCH (06:00)
[2021-10-13 07:00] VITALS: BP 157/86
[2021-10-13] MEDS: DULoxetine HCL 30 MG CAPSULE.DR PO SCH (08:30)
[2021-10-13] MEDS: DEXAMETHASONE SOD PHOS 4 MG/ML VIAL IVP SCH (08:30)
[2021-10-13] MEDS: ASPIRIN CHEWABLE 81 MG TABLET. PO SCH (08:30)
[2021-10-13] MEDS: SENNOSIDES/DOCUSATE 8.6/50MG TABLET. PO SCH ×3 (08:30→22:25)
--- NOTE | 2021-10-13 10:38 | NUR ---
SW following. Discussed with RN, pt from home with , 2L (does not use oxygen at home), cardiac diet. Flu negative, COVID-19 positive on 09/20/21. RN advised no SW needs at this time. SW will continue to follow.
[2021-10-13 11:00] VITALS: BP 132/88
[2021-10-13 15:00] VITALS: BP 149/80
--- NOTE | 2021-10-13 15:00 | PDOC ---
[employer] PROGRESS NOTE Date of Service DOS: DATE: 10/13/21 TIME: 14:59 Chief Complaint Chief Complaint Acute hypoxic respiratory failure secondary to COVID-19 pneumonia with possible superimposed bacterial pneumonia, history non-Hodgkin's lymphoma hypothyroid glaucoma A. fib -Admit to hospitalist -COVID treatments 6 mg Decadron daily. Given allergies and antibiotic history will continue Levaquin started in ER. Out of window for remdesivir -Provide Combivent inhaler as needed -Wean O2 as tolerated -Home medications resumed as indicated -DVT prophylaxis -Advance diet as tolerated -We will hold off on PT OT and see how she does History of Present Illness History of Present Illness 61-year-old female with a history of metastatic non-Hodgkin's lymphoma presents to the ER for cough and fever x4 weeks. Patient states that she was diagnosed with Covid on September 20, 2021 since then she has been through multiple courses of treatment such as methylprednisone azithromycin and doxycycline. Nothing has seemed to help her symptoms besides rest, movement worsens her cough, clear- colored sputum occasionally associated with her cough. The patient denies any other associated symptoms at this time. Evaluated in the emergency room patient was resting in bed and a little bit distress. Agreeable to admission 10/13/2021 No acute events overnight. Patient doing well and not dyspneic on 95% 2 L nasal cannula. Patient has some cough during my encounter. Patient's chart, labs, images were reviewed and discussed with RN Vitals/I&O Vitals/I&O: Vital Signs Date Time Temp Pulse Resp B/P (MAP) Pulse Ox O2 Delivery O2 Flow Rate FiO2 10/13/21 11:00 99.6 104 20 132/88 (103) 94 Nasal Cannula 2.0 99.6 I & O 10/12/21 10/12/21 10/13/21 15:00 23:00 07:00 Intake Total 1000 ml 1150 ml Balance 1000 ml 1150 ml Physical Exam General: Alert, Oriented X3, Cooperative Heart: Regular rate Lungs: Clear Abdomen: Normal bowel sounds Extremities: No clubbing Skin: No rashes Labs Labs: Laboratory Tests Test 10/13/21 04:15 Lactic Acid Level 2.1 mmol/L (0.4-2.0) Assessment and Plan Assessmemt and Plan Problems Medical Problems: (1) Hypokalemia Status: Acute (2) Pneumonia due to COVID-19 virus Status: Acute (3) Respiratory failure Status: Acute (4) Severe sepsis Status: Acute Comment Review of Relevant I have reviewed the following items kike (where applicable) has been applied. Medications: Current Medications Medications (Trade) Dose Ordered Sig/Angeline Route PRN Reason Start Time Stop Time Status Last Admin Dose Admin Levofloxacin/ Dextrose 150 ml @ 100 mls/hr 1X ONCE IV 10/12/21 15:00 10/12/21 16:29 DC 10/12/21 15:02 Dexamethasone Sodium Phosphate (Decadron) 6 mg DAILY IVP 10/12/21 15:00 10/13/21 08:30 Aspirin (Aspirin Chewable) 81 mg DAILY PO 10/13/21 09:00 10/13/21 08:30 Duloxetine HCl (Cymbalta) 30 mg DAILY PO 10/13/21 09:00 10/13/21 08:30 Flecainide Acetate (Tambocor) 50 mg BID PO 10/12/21 21:00 10/13/21 08:31 Latanoprost (Xalatan) 1 drop QHS OU 10/12/21 21:00 10/12/21 21:00 Metoprolol Tartrate (Lopressor) 25 mg BID PO 10/12/21 21:00 10/13/21 08:31 Heparin Sodium (Porcine) (Heparin Sodium) 5,000 unit Q8HRS SQ 10/12/21 15:00 10/13/21 14:13 Levofloxacin/ Dextrose 150 ml @ 100 mls/hr Q24H IV 10/13/21 15:00 10/13/21 14:18 Potassium Chloride (Klor-Con) 40 meq 1X ONCE PO 10/12/21 18:00 10/12/21 18:01 DC 10/12/21 18:16 Guaifenesin/ Codeine Phosphate (Robitussin Ac) 5 ml PRN Q6HRS PRN PO COUGH 10/13/21 00:30 10/13/21 00:34 Levothyroxine Sodium (Synthroid) 75 mcg DAILY06 PO 10/13/21 06:00 10/13/21 05:43 Justifications for Admission Other Justification OSIEL CAGE MD Oct 13, 2021 15:00
[2021-10-13] MEDS: PROMETHAZINE 12.5 MG TABLET. PO PRN ×2 (17:23→23:10)
[2021-10-13] MEDS: CODEINE SULFATE 30 MG TABLET. PO PRN ×2 (17:23→23:11)
[2021-10-13 19:46] VITALS: BP 122/61
[2021-10-13] MEDS: LACTOBACILLUS RHAMNOSUS GG 1 CAPSULE. PO SCH (22:15)
[2021-10-13] MEDS: LATANOPROST 0.005% OPHTH SOLUTION 2.5ML BOTTLE. OU SCH (22:15)
[2021-10-13 23:00] VITALS: BP 135/68
[2021-10-14] MEDS: diphenhydrAMINE HCL 25 MG CAPSULE PO PRN (02:00)
[2021-10-14] MEDS: HEPARIN for SUB-Q USE 5,000 UNIT/ML VIAL. SQ SCH ×3 (06:38→21:04)
[2021-10-14] MEDS: LEVOTHYROXINE 75 MCG TABLET PO SCH (06:38)
[2021-10-14 07:00] VITALS: BP 106/49
[2021-10-14 08:27] LABS: BASO % 0 % (0-3); EOS # 0.1 x10^3/uL (0.0-0.7); EOS % 1 % (0-3); HEMATOCRIT 33.2 % (36.0-47.0); HEMOGLOBIN 11.1 g/dL (12.0-15.5); LYMPH # 1.2 x10^3/uL (1.0-4.8); LYMPH % 27 % (24-48); MEAN CORPUSCULAR HEMOGLOBIN 28 pg (25-35); MEAN CORPUSCULAR HGB CONC 33 g/dL (31-37); MEAN CORPUSCULAR VOLUME 83 fL (79-100); MONO # 0.3 x10^3/uL (0.0-1.1); MONO % 8 % (0-9); NEUT # 2.8 x10^3/uL (1.8-7.7); NEUT % 64 % (31-73); PLATELET COUNT 187 x10^3/uL (140-400); RED BLOOD COUNT 4.02 x10^6/uL (3.50-5.40); RED CELL DISTRIBUTION WIDTH 13.3 % (11.5-14.5); WHITE BLOOD COUNT 4.4 x10^3/uL (4.0-11.0)
[2021-10-14 08:45] LABS: CALCIUM 7.9 mg/dL (8.5-10.1); CREATININE 0.8 mg/dL (0.6-1.0); GFR 72.9; MAGNESIUM 1.6 mg/dL (1.8-2.4); PHOSPHORUS 2.9 mg/dL (2.6-4.7)
[2021-10-14 08:50] LABS: POTASSIUM 2.8 mmol/L (3.5-5.1)
[2021-10-14] MEDS: LACTOBACILLUS RHAMNOSUS GG 1 CAPSULE. PO SCH ×2 (08:55→20:59)
[2021-10-14] MEDS: DEXAMETHASONE SOD PHOS 4 MG/ML VIAL IVP SCH (08:55)
[2021-10-14] MEDS: SENNOSIDES/DOCUSATE 8.6/50MG TABLET. PO SCH ×4 (08:56→21:10)
[2021-10-14] MEDS: ASPIRIN CHEWABLE 81 MG TABLET. PO SCH (08:56)
[2021-10-14] MEDS: FLECAINIDE ACETATE 50 MG TABLET. PO SCH ×2 (08:56→21:01)
[2021-10-14] MEDS: DULoxetine HCL 30 MG CAPSULE.DR PO SCH (08:56)
[2021-10-14] MEDS: METOPROLOL TART IMMED RELEASE 25 MG TABLET. PO SCH ×2 (08:57→21:01)
[2021-10-14] MEDS ORDERED: POTASSIUM CHLORIDE 20 MEQ TABLET.ER. PO SCH (09:00)
[2021-10-14] MEDS ORDERED: MAGNESIUM SULFATE 2GM 50 ML IV ONE (09:00)
--- NOTE | 2021-10-14 10:13 | PDOC ---
[employer] PROGRESS NOTE Date of Service DOS: DATE: 10/14/21 TIME: 10:11 Chief Complaint Chief Complaint Acute hypoxic respiratory failure secondary to COVID-19 pneumonia with possible superimposed bacterial pneumonia, history non-Hodgkin's lymphoma hypothyroid glaucoma A. fib, hypokalemia, hypomagnesemia -Admit to hospitalist -COVID treatments 6 mg Decadron daily. Given allergies and antibiotic history will continue Levaquin started in ER. Out of window for remdesivir -Provide Combivent inhaler as needed -Wean O2 as tolerated -Home medications resumed as indicated -DVT prophylaxis -Advance diet as tolerated -We will hold off on PT OT and see how she does History of Present Illness History of Present Illness 61-year-old female with a history of metastatic non-Hodgkin's lymphoma presents to the ER for cough and fever x4 weeks. Patient states that she was diagnosed with Covid on September 20, 2021 since then she has been through multiple courses of treatment such as methylprednisone azithromycin and doxycycline. Nothing has seemed to help her symptoms besides rest, movement worsens her cough, clear- colored sputum occasionally associated with her cough. The patient denies any other associated symptoms at this time. Evaluated in the emergency room patient was resting in bed and a little bit distress. Agreeable to admission 10/13/2021 No acute events overnight. Patient doing well and not dyspneic on 95% 2 L nasal cannula. Patient has some cough during my encounter. Patient's chart, labs, images were reviewed and discussed with RN 10/14/2021 No acute events overnight. Patient seen examined bedside. AF and VSS. Saturating 92% on 3 L nasal cannula. Potassium of 2.8 and magnesium 1.6. Replacement with IV and oral electrolyte replacement as needed. Patient's chart, labs, images were reviewed and discussed with RN Vitals/I&O Vitals/I&O: Vital Signs Date Time Temp Pulse Resp B/P (MAP) Pulse Ox O2 Delivery O2 Flow Rate FiO2 10/14/21 08:57 79 106/49 10/14/21 07:00 101.8 18 92 Nasal Cannula 3.0 101.8 I & O 10/13/21 10/13/21 10/14/21 15:00 23:00 07:00 Intake Total 150 ml Balance 150 ml Physical Exam General: Alert, Oriented X3, Cooperative Heart: Regular rate Lungs: Clear Abdomen: Normal bowel sounds Extremities: No clubbing Skin: No rashes Labs Labs: Laboratory Tests Test 10/14/21 06:35 White Blood Count 4.4 x10^3/uL (4.0-11.0) Red Blood Count 4.02 x10^6/uL (3.50-5.40) Hemoglobin 11.1 g/dL (12.0-15.5) Hematocrit 33.2 % (36.0-47.0) Mean Corpuscular Volume 83 fL (79-100) Mean Corpuscular Hemoglobin 28 pg (25-35) Mean Corpuscular Hemoglobin Concent 33 g/dL (31-37) Red Cell Distribution Width 13.3 % (11.5-14.5) Platelet Count 187 x10^3/uL (140-400) Neutrophils (%) (Auto) 64 % (31-73) Lymphocytes (%) (Auto) 27 % (24-48) Monocytes (%) (Auto) 8 % (0-9) Eosinophils (%) (Auto) 1 % (0-3) Basophils (%) (Auto) 0 % (0-3) Neutrophils # (Auto) 2.8 x10^3/uL (1.8-7.7) Lymphocytes # (Auto) 1.2 x10^3/uL (1.0-4.8) Monocytes # (Auto) 0.3 x10^3/uL (0.0-1.1) Eosinophils # (Auto) 0.1 x10^3/uL (0.0-0.7) Basophils # (Auto) 0.0 x10^3/uL (0.0-0.2) Sodium Level 139 mmol/L (136-145) Potassium Level 2.8 mmol/L (3.5-5.1) Chloride Level 102 mmol/L (98-107) Carbon Dioxide Level 28 mmol/L (21-32) Anion Gap 9 (6-14) Blood Urea Nitrogen 13 mg/dL (7-20) Creatinine 0.8 mg/dL (0.6-1.0) Estimated GFR (Cockcroft-Gault) 72.9 Glucose Level 83 mg/dL (70-99) Calcium Level 7.9 mg/dL (8.5-10.1) Phosphorus Level 2.9 mg/dL (2.6-4.7) Magnesium Level 1.6 mg/dL (1.8-2.4) Assessment and Plan Assessmemt and Plan Problems Medical Problems: (1) Hypokalemia Status: Acute (2) Pneumonia due to COVID-19 virus Status: Acute (3) Respiratory failure Status: Acute (4) Severe sepsis Status: Acute Comment Review of Relevant I have reviewed the following items kike (where applicable) has been applied. Medications: Current Medications Medications (Trade) Dose Ordered Sig/Angeline Route PRN Reason Start Time Stop Time Status Last Admin Dose Admin Levofloxacin/ Dextrose 150 ml @ 100 mls/hr Q24H IV 10/13/21 15:00 10/13/21 14:18 Lactobacillus Rhamnosus (Culturelle) 1 cap BID PO 10/13/21 21:00 10/14/21 08:55 Promethazine HCl (Phenergan) 12.5 mg PRN Q6HRS PRN PO NAUSEA/VOMITING 10/13/21 17:15 10/13/21 23:10 Codeine Sulfate (Codeine) 30 mg PRN Q6HRS PRN PO PAIN 10/13/21 17:15 10/13/21 23:11 Diphenhydramine HCl (Benadryl) 25 mg PRN Q6HRS PRN PO ITCHING 10/14/21 01:45 10/14/21 02:00 Justifications for Admission Other Justification OSIEL CAGE MD Oct 14, 2021 10:12
[2021-10-14] MEDS: CODEINE SULFATE 30 MG TABLET. PO PRN ×2 (10:32→23:40)
[2021-10-14] MEDS: PROMETHAZINE 12.5 MG TABLET. PO PRN ×2 (10:33→23:40)
[2021-10-14 11:00] VITALS: BP 151/66
[2021-10-14] MEDS: POTASSIUM CHLORIDE 20MEQ 100 ML IV SCH ×4 (12:19→20:59)
[2021-10-14 15:00] VITALS: BP 131/59
[2021-10-14 19:00] VITALS: BP 112/63
[2021-10-14] MEDS: LATANOPROST 0.005% OPHTH SOLUTION 2.5ML BOTTLE. OU SCH (20:59)
[2021-10-14 23:00] VITALS: BP 118/70
[2021-10-15 03:00] VITALS: BP 142/75
[2021-10-15] MEDS: LEVOTHYROXINE 75 MCG TABLET PO SCH (05:19)
[2021-10-15] MEDS: HEPARIN for SUB-Q USE 5,000 UNIT/ML VIAL. SQ SCH ×3 (05:20→21:15)
[2021-10-15] MEDS: guaiFENesin DM 200MG/20MG 10 ML SYRUP PO PRN ×2 (06:43→15:00)
[2021-10-15] MEDS: ACETAMINOPHEN 325 MG TABLET. PO PRN (06:43)
[2021-10-15 07:00] VITALS: BP 131/64
[2021-10-15] MEDS: SENNOSIDES/DOCUSATE 8.6/50MG TABLET. PO SCH ×3 (09:00→21:13)
[2021-10-15] MEDS: LACTOBACILLUS RHAMNOSUS GG 1 CAPSULE. PO SCH ×2 (09:14→21:13)
[2021-10-15] MEDS: DEXAMETHASONE SOD PHOS 4 MG/ML VIAL IVP SCH (09:16)
[2021-10-15] MEDS: DULoxetine HCL 30 MG CAPSULE.DR PO SCH (09:16)
[2021-10-15] MEDS: ASPIRIN CHEWABLE 81 MG TABLET. PO SCH (09:16)
[2021-10-15] MEDS: FLECAINIDE ACETATE 50 MG TABLET. PO SCH ×2 (09:16→21:13)
[2021-10-15] MEDS: METOPROLOL TART IMMED RELEASE 25 MG TABLET. PO SCH ×2 (09:17→21:14)
[2021-10-15 11:00] VITALS: BP 143/68
--- NOTE | 2021-10-15 13:50 | PDOC ---
[employer] PROGRESS NOTE Date of Service DOS: DATE: 10/15/21 TIME: 13:49 Chief Complaint Chief Complaint Acute hypoxic respiratory failure secondary to COVID-19 pneumonia with possible superimposed bacterial pneumonia, history non-Hodgkin's lymphoma hypothyroid glaucoma A. fib, hypokalemia, hypomagnesemia -Admit to hospitalist -COVID treatments 6 mg Decadron daily. Given allergies and antibiotic history will continue Levaquin started in ER. Out of window for remdesivir -Provide Combivent inhaler as needed -Wean O2 as tolerated -Home medications resumed as indicated -DVT prophylaxis -Advance diet as tolerated -We will hold off on PT OT and see how she does History of Present Illness History of Present Illness 61-year-old female with a history of metastatic non-Hodgkin's lymphoma presents to the ER for cough and fever x4 weeks. Patient states that she was diagnosed with Covid on September 20, 2021 since then she has been through multiple courses of treatment such as methylprednisone azithromycin and doxycycline. Nothing has seemed to help her symptoms besides rest, movement worsens her cough, clear- colored sputum occasionally associated with her cough. The patient denies any other associated symptoms at this time. Evaluated in the emergency room patient was resting in bed and a little bit distress. Agreeable to admission 10/13/2021 No acute events overnight. Patient doing well and not dyspneic on 95% 2 L nasal cannula. Patient has some cough during my encounter. Patient's chart, labs, images were reviewed and discussed with RN 10/14/2021 No acute events overnight. Patient seen examined bedside. AF and VSS. Saturating 92% on 3 L nasal cannula. Potassium of 2.8 and magnesium 1.6. Replacement with IV and oral electrolyte replacement as needed. Patient's chart, labs, images were reviewed and discussed with RN 10/15/2021 No acute events overnight. Patient saturating 96% on 4 L nasal cannula. Fever overnight of 100.7. Patient seen and examined on recliner. Not short of breath. Ready to go home maybe tomorrow. Will likely need home O2. Patient's chart, labs, images were reviewed and discussed with RN Vitals/I&O Vitals/I&O: Vital Signs Date Time Temp Pulse Resp B/P (MAP) Pulse Ox O2 Delivery O2 Flow Rate FiO2 10/15/21 11:00 98.6 80 18 143/68 (93) 96 Nasal Cannula 6.0 98.6 I & O 10/14/21 10/14/21 10/15/21 15:00 23:00 07:00 Intake Total 240 ml 1450 ml 300 ml Output Total 200 ml Balance 240 ml 1450 ml 100 ml Physical Exam General: Alert, Oriented X3, Cooperative Heart: Regular rate Lungs: Clear Abdomen: Normal bowel sounds Extremities: No clubbing Skin: No rashes Assessment and Plan Assessmemt and Plan Problems Medical Problems: (1) Hypokalemia Status: Acute (2) Pneumonia due to COVID-19 virus Status: Acute (3) Respiratory failure Status: Acute (4) Severe sepsis Status: Acute Comment Review of Relevant I have reviewed the following items kike (where applicable) has been applied. Medications: Current Medications Medications (Trade) Dose Ordered Sig/Angeline Route PRN Reason Start Time Stop Time Status Last Admin Dose Admin Guaifenesin (Robitussin Dm) 10 ml PRN Q4HRS PRN PO COUGH 10/15/21 06:45 10/15/21 06:43 Justifications for Admission Other Justification OSIEL CAGE MD Oct 15, 2021 13:50
[2021-10-15 15:00] VITALS: BP 121/59
[2021-10-15 19:00] VITALS: BP 136/69
[2021-10-15] MEDS: LATANOPROST 0.005% OPHTH SOLUTION 2.5ML BOTTLE. OU SCH (21:13)
[2021-10-15 23:00] VITALS: BP 139/65
[2021-10-15] MEDS: CODEINE SULFATE 30 MG TABLET. PO PRN (23:42)
[2021-10-15] MEDS: PROMETHAZINE 12.5 MG TABLET. PO PRN (23:42)
[2021-10-16 03:00] VITALS: BP 129/67
[2021-10-16] MEDS: HEPARIN for SUB-Q USE 5,000 UNIT/ML VIAL. SQ SCH ×3 (05:56→21:31)
[2021-10-16] MEDS: LEVOTHYROXINE 75 MCG TABLET PO SCH (05:57)
[2021-10-16] MEDS: guaiFENesin DM 200MG/20MG 10 ML SYRUP PO PRN ×2 (06:23→21:44)
[2021-10-16 07:00] VITALS: BP 154/73
[2021-10-16] MEDS: FLECAINIDE ACETATE 50 MG TABLET. PO SCH ×2 (09:36→21:31)
[2021-10-16] MEDS: ASPIRIN CHEWABLE 81 MG TABLET. PO SCH (09:36)
[2021-10-16] MEDS: METOPROLOL TART IMMED RELEASE 25 MG TABLET. PO SCH ×2 (09:36→21:32)
[2021-10-16] MEDS: SENNOSIDES/DOCUSATE 8.6/50MG TABLET. PO SCH ×2 (09:37→21:00)
[2021-10-16] MEDS: LACTOBACILLUS RHAMNOSUS GG 1 CAPSULE. PO SCH ×2 (09:37→21:32)
[2021-10-16] MEDS: DULoxetine HCL 30 MG CAPSULE.DR PO SCH (09:37)
[2021-10-16] MEDS: DEXAMETHASONE SOD PHOS 4 MG/ML VIAL IVP SCH (09:37)
[2021-10-16 10:09] LABS: CALCIUM 7.9 mg/dL (8.5-10.1); CREATININE 0.9 mg/dL (0.6-1.0); GFR 63.7; MAGNESIUM 1.8 mg/dL (1.8-2.4); POTASSIUM 3.2 mmol/L (3.5-5.1)
[2021-10-16] MEDS ORDERED: PRED20TA PO (10:14)
--- NOTE | 2021-10-16 10:16 | DISCH ---
DISCHARGE INSTRUCTIONS Condition on Discharge Condition on Discharge: Stable Activity After Discharge Activity Instructions for Disc: Activity as tolerated, Avoid exertion Bathing Instructions: Shower-keep dressing dry Lifting Instructions after Dis: No heavy lifting, No pulling or pushing, Do not lift >10 pounds Exercise Instruction after Dis: Progress as tolerated Driving Instructions after Dis: Do not drive today Weight Bearing Status after Di: No restrictions Diet after Discharge Diet after Discharge: Cardiac, Neutropenic Wound Incision Care Wound/Incision Care: Keep wound/cast CDI Checks after Discharge Checks after discharge: Check blood press - daily Follow-Up Follow up with: PCP within 2 weeks of discharge Treatment/Equipment after DC Adaptive Equipment Issued: None OSIEL CAGE MD Oct 16, 2021 10:16
[2021-10-16] MEDS ORDERED: POTASSIUM CHLORIDE 20 MEQ TABLET.ER. PO ONE (10:30)
--- NOTE | 2021-10-16 10:59 | NUR ---
This RN notified Dr. Davis that pt's lactic still elevated. Dr. Davis stated he is okay with pt discharging and would be in to speak with pt. Addendum: 10/16/21 at 1104 by LILLIE GRANT RN Dr. Davis spoke with pt, O2 saturations dropped to 80's while he was in room. Orders received to cancel discharge order.
[2021-10-16 11:00] VITALS: BP 137/74
--- NOTE | 2021-10-16 12:34 | PDOC ---
[employer] [facility] PROGRESS NOTE Date of Service DOS: DATE: 10/16/21 TIME: 12:32 Chief Complaint Chief Complaint Acute hypoxic respiratory failure secondary to COVID-19 pneumonia with possible superimposed bacterial pneumonia, history non-Hodgkin's lymphoma hypothyroid glaucoma A. fib, hypokalemia, hypomagnesemia -Admit to hospitalist -COVID treatments 6 mg Decadron daily. Given allergies and antibiotic history will continue Levaquin started in ER. Out of window for remdesivir -Provide Combivent inhaler as needed -Wean O2 as tolerated -Home medications resumed as indicated -DVT prophylaxis -Advance diet as tolerated -We will hold off on PT OT and see how she does History of Present Illness History of Present Illness 61-year-old female with a history of metastatic non-Hodgkin's lymphoma presents to the ER for cough and fever x4 weeks. Patient states that she was diagnosed with Covid on September 20, 2021 since then she has been through multiple courses of treatment such as methylprednisone azithromycin and doxycycline. Nothing has seemed to help her symptoms besides rest, movement worsens her cough, clear- colored sputum occasionally associated with her cough. The patient denies any other associated symptoms at this time. Evaluated in the emergency room patient was resting in bed and a little bit distress. Agreeable to admission 10/13/2021 No acute events overnight. Patient doing well and not dyspneic on 95% 2 L nasal cannula. Patient has some cough during my encounter. Patient's chart, labs, images were reviewed and discussed with RN 10/14/2021 No acute events overnight. Patient seen examined bedside. AF and VSS. Saturating 92% on 3 L nasal cannula. Potassium of 2.8 and magnesium 1.6. Replacement with IV and oral electrolyte replacement as needed. Patient's chart, labs, images were reviewed and discussed with RN 10/15/2021 No acute events overnight. Patient saturating 96% on 4 L nasal cannula. Fever overnight of 100.7. Patient seen and examined on recliner. Not short of breath. Ready to go home maybe tomorrow. Will likely need home O2. Patient's chart, labs, images were reviewed and discussed with RN 10/16/2021 No acute events overnight. Patient seen examined bedside. Saturating 90% on 5 to 6 L nasal cannula. Still having some shortness of breath during rest. Not ready to go home at this time. 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 Vitals/I&O Vitals/I&O: Vital Signs Date Time Temp Pulse Resp B/P (MAP) Pulse Ox O2 Delivery O2 Flow Rate FiO2 10/16/21 11:00 98.5 99 18 137/74 (95) 86 Nasal Cannula 4.0 98.5 I & O 10/15/21 10/15/21 10/16/21 15:00 23:00 07:00 Intake Total 240 ml 300 ml Balance 240 ml 300 ml Physical Exam General: Alert, Oriented X3, Cooperative Heart: Regular rate Lungs: Clear Abdomen: Normal bowel sounds Extremities: No clubbing Skin: No rashes Labs Labs: Laboratory Tests Test 10/16/21 09:40 Sodium Level 142 mmol/L (136-145) Potassium Level 3.2 mmol/L (3.5-5.1) Chloride Level 104 mmol/L (98-107) Carbon Dioxide Level 28 mmol/L (21-32) Anion Gap 10 (6-14) Blood Urea Nitrogen 9 mg/dL (7-20) Creatinine 0.9 mg/dL (0.6-1.0) Estimated GFR (Cockcroft-Gault) 63.7 Glucose Level 108 mg/dL (70-99) Lactic Acid Level 2.8 mmol/L (0.4-2.0) Calcium Level 7.9 mg/dL (8.5-10.1) Magnesium Level 1.8 mg/dL (1.8-2.4) Assessment and Plan Assessmemt and Plan Problems Medical Problems: (1) Hypokalemia Status: Acute (2) Pneumonia due to COVID-19 virus Status: Acute (3) Respiratory failure Status: Acute (4) Severe sepsis Status: Acute Comment Review of Relevant I have reviewed the following items kike (where applicable) has been applied. Medications: Current Medications Medications (Trade) Dose Ordered Sig/Angeline Route PRN Reason Start Time Stop Time Status Last Admin Dose Admin Potassium Chloride (Klor-Con) 40 meq 1X ONCE PO 10/16/21 10:30 10/16/21 10:31 DC 10/16/21 10:51 Justifications for Admission Other Justification OSIEL CAGE MD Oct 16, 2021 12:34
--- NOTE | 2021-10-16 13:42 | NUR ---
SW following. Discussed with RN, pt from home with , requiring 2-6L oxygen, COVID-19 positive. Pt will need a 6 minute walk prior to discharge. SW will continue to follow.
[2021-10-16 15:00] VITALS: BP 126/58
[2021-10-16 19:00] VITALS: BP 123/59
[2021-10-16] MEDS: LATANOPROST 0.005% OPHTH SOLUTION 2.5ML BOTTLE. OU SCH (21:32)
[2021-10-16 23:00] VITALS: BP 131/68
[2021-10-16] MEDS: CODEINE SULFATE 30 MG TABLET. PO PRN (23:33)
[2021-10-16] MEDS: PROMETHAZINE 12.5 MG TABLET. PO PRN (23:33)
[2021-10-17 03:00] VITALS: BP 144/73
[2021-10-17] MEDS: HEPARIN for SUB-Q USE 5,000 UNIT/ML VIAL. SQ SCH ×3 (06:10→21:40)
[2021-10-17] MEDS: LEVOTHYROXINE 75 MCG TABLET PO SCH (06:18)
[2021-10-17] MEDS: guaiFENesin DM 200MG/20MG 10 ML SYRUP PO PRN ×3 (06:29→21:17)
[2021-10-17 07:00] VITALS: BP 147/69
[2021-10-17] MEDS: SENNOSIDES/DOCUSATE 8.6/50MG TABLET. PO SCH ×2 (08:43→21:18)
[2021-10-17] MEDS: FLECAINIDE ACETATE 50 MG TABLET. PO SCH ×2 (08:44→21:19)
[2021-10-17] MEDS: LACTOBACILLUS RHAMNOSUS GG 1 CAPSULE. PO SCH ×2 (08:44→21:17)
[2021-10-17] MEDS: DULoxetine HCL 30 MG CAPSULE.DR PO SCH (08:44)
[2021-10-17] MEDS: METOPROLOL TART IMMED RELEASE 25 MG TABLET. PO SCH ×2 (08:45→21:18)
[2021-10-17] MEDS: ASPIRIN CHEWABLE 81 MG TABLET. PO SCH (08:45)
[2021-10-17] MEDS: DEXAMETHASONE SOD PHOS 4 MG/ML VIAL IVP SCH (08:45)
[2021-10-17] MEDS: ACETAMINOPHEN 325 MG TABLET. PO PRN (08:52)
[2021-10-17 10:25] LABS: BASO % 0 % (0-3); CALCIUM 7.8 mg/dL (8.5-10.1); CREATININE 0.9 mg/dL (0.6-1.0); EOS % 0 % (0-3); GFR 63.7; HEMATOCRIT 33.3 % (36.0-47.0); LYMPH # 0.9 x10^3/uL (1.0-4.8); LYMPH % 19 % (24-48); MAGNESIUM 1.8 mg/dL (1.8-2.4); MEAN CORPUSCULAR HEMOGLOBIN 28 pg (25-35); MEAN CORPUSCULAR HGB CONC 33 g/dL (31-37); MEAN CORPUSCULAR VOLUME 84 fL (79-100); MONO # 0.4 x10^3/uL (0.0-1.1); MONO % 8 % (0-9); NEUT # 3.5 x10^3/uL (1.8-7.7); NEUT % 73 % (31-73); PLATELET COUNT 172 x10^3/uL (140-400); POTASSIUM 3.6 mmol/L (3.5-5.1); RED BLOOD COUNT 3.99 x10^6/uL (3.50-5.40); RED CELL DISTRIBUTION WIDTH 13.5 % (11.5-14.5); WHITE BLOOD COUNT 4.8 x10^3/uL (4.0-11.0)
[2021-10-17 11:00] VITALS: BP 106/55
--- NOTE | 2021-10-17 13:48 | PDOC ---
[employer] PROGRESS NOTE Date of Service DOS: DATE: 10/17/21 TIME: 13:47 Chief Complaint Chief Complaint Acute hypoxic respiratory failure secondary to COVID-19 pneumonia with possible superimposed bacterial pneumonia, history non-Hodgkin's lymphoma hypothyroid glaucoma A. fib, hypokalemia, hypomagnesemia -Admit to hospitalist -COVID treatments 6 mg Decadron daily. Given allergies and antibiotic history will continue Levaquin started in ER. Out of window for remdesivir -Provide Combivent inhaler as needed -Wean O2 as tolerated -Home medications resumed as indicated -DVT prophylaxis -Advance diet as tolerated -We will hold off on PT OT and see how she does History of Present Illness History of Present Illness 61-year-old female with a history of metastatic non-Hodgkin's lymphoma presents to the ER for cough and fever x4 weeks. Patient states that she was diagnosed with Covid on September 20, 2021 since then she has been through multiple courses of treatment such as methylprednisone azithromycin and doxycycline. Nothing has seemed to help her symptoms besides rest, movement worsens her cough, clear- colored sputum occasionally associated with her cough. The patient denies any other associated symptoms at this time. Evaluated in the emergency room patient was resting in bed and a little bit distress. Agreeable to admission 10/13/2021 No acute events overnight. Patient doing well and not dyspneic on 95% 2 L nasal cannula. Patient has some cough during my encounter. Patient's chart, labs, images were reviewed and discussed with RN 10/14/2021 No acute events overnight. Patient seen examined bedside. AF and VSS. Saturating 92% on 3 L nasal cannula. Potassium of 2.8 and magnesium 1.6. Replacement with IV and oral electrolyte replacement as needed. Patient's chart, labs, images were reviewed and discussed with RN 10/15/2021 No acute events overnight. Patient saturating 96% on 4 L nasal cannula. Fever overnight of 100.7. Patient seen and examined on recliner. Not short of breath. Ready to go home maybe tomorrow. Will likely need home O2. Patient's chart, labs, images were reviewed and discussed with RN 10/16/2021 No acute events overnight. Patient seen examined bedside. Saturating 90% on 5 to 6 L nasal cannula. Still having some shortness of breath during rest. Not ready to go home at this time. 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 2021-10-17 No acute events overnight. Patient seen examined bedside. Saturating 92% on 7 L nasal cannula. Patient still having increasing O2 requirements. I have reeducated the patient on prone positioning and will have patient use an incentive spirometer. We will repeat a chest x-ray today for worsening progression of her hospital course. Patient's chart, labs, images were reviewed and discussed with RN Vitals/I&O Vitals/I&O: Vital Signs Date Time Temp Pulse Resp B/P (MAP) Pulse Ox O2 Delivery O2 Flow Rate FiO2 10/17/21 11:00 99.3 86 20 106/55 (72) 95 Nasal Cannula 4.0 99.3 I & O 10/16/21 10/16/21 10/17/21 15:00 23:00 07:00 Intake Total 150 ml 300 ml Balance 150 ml 300 ml Physical Exam General: Alert, Oriented X3, Cooperative Heart: Regular rate Lungs: Clear Abdomen: Normal bowel sounds Extremities: No clubbing Skin: No rashes Labs Labs: Laboratory Tests Test 10/16/21 14:45 10/17/21 09:50 Lactic Acid Level 3.5 mmol/L (0.4-2.0) White Blood Count 4.8 x10^3/uL (4.0-11.0) Red Blood Count 3.99 x10^6/uL (3.50-5.40) Hemoglobin 11.0 g/dL (12.0-15.5) Hematocrit 33.3 % (36.0-47.0) Mean Corpuscular Volume 84 fL (79-100) Mean Corpuscular Hemoglobin 28 pg (25-35) Mean Corpuscular Hemoglobin Concent 33 g/dL (31-37) Red Cell Distribution Width 13.5 % (11.5-14.5) Platelet Count 172 x10^3/uL (140-400) Neutrophils (%) (Auto) 73 % (31-73) Lymphocytes (%) (Auto) 19 % (24-48) Monocytes (%) (Auto) 8 % (0-9) Eosinophils (%) (Auto) 0 % (0-3) Basophils (%) (Auto) 0 % (0-3) Neutrophils # (Auto) 3.5 x10^3/uL (1.8-7.7) Lymphocytes # (Auto) 0.9 x10^3/uL (1.0-4.8) Monocytes # (Auto) 0.4 x10^3/uL (0.0-1.1) Eosinophils # (Auto) 0.0 x10^3/uL (0.0-0.7) Basophils # (Auto) 0.0 x10^3/uL (0.0-0.2) Sodium Level 139 mmol/L (136-145) Potassium Level 3.6 mmol/L (3.5-5.1) Chloride Level 101 mmol/L (98-107) Carbon Dioxide Level 29 mmol/L (21-32) Anion Gap 9 (6-14) Blood Urea Nitrogen 11 mg/dL (7-20) Creatinine 0.9 mg/dL (0.6-1.0) Estimated GFR (Cockcroft-Gault) 63.7 Glucose Level 104 mg/dL (70-99) Calcium Level 7.8 mg/dL (8.5-10.1) Magnesium Level 1.8 mg/dL (1.8-2.4) Assessment and Plan Assessmemt and Plan Problems Medical Problems: (1) Hypokalemia Status: Acute (2) Pneumonia due to COVID-19 virus Status: Acute (3) Respiratory failure Status: Acute (4) Severe sepsis Status: Acute Comment Review of Relevant I have reviewed the following items kike (where applicable) has been applied. Justifications for Admission Other Justification OSIEL CAGE MD Oct 17, 2021 13:48
[2021-10-17 15:00] VITALS: BP 108/66
--- NOTE | 2021-10-17 16:21 | NUR ---
Per Dr. Callejas, okay to leave IV out.
--- NOTE | 2021-10-17 16:49 | RAD ---
XR CHEST 1V Clinical Indication: Reason: hypoxia / Spl. Instructions: / History: Comparison: AP chest April 03, 2020. Findings: Right chest Port-A-Cath is no longer present. The cardiomediastinal silhouette is normal. Patchy bila teral interstitial and alveolar opacities throughout the lungs are noted. The hemidiaphragms are well seen.. There is no pneumothorax. No pleural effusion is appreciated. No acute bone abnormality. IMPRESSION: Patchy bilateral interstitial and alveolar opacities are probably infectious/inflammatory. Electronically signed by: Ashutosh Tinoco MD (10/17/2021 4:47 PM) [id number]
--- NOTE | 2021-10-17 17:44 | NUR ---
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 Requested cough medicine from ANNE-MARIE Herr.
[2021-10-17 19:00] VITALS: BP 135/67
[2021-10-17] MEDS: LATANOPROST 0.005% OPHTH SOLUTION 2.5ML BOTTLE. OU SCH (21:17)
[2021-10-17] MEDS: CODEINE SULFATE 30 MG TABLET. PO PRN (22:53)
[2021-10-17] MEDS: PROMETHAZINE 12.5 MG TABLET. PO PRN (22:53)
[2021-10-17 23:00] VITALS: BP 150/81
[2021-10-18 03:00] VITALS: BP 151/76
[2021-10-18] MEDS: ACETAMINOPHEN 325 MG TABLET. PO PRN (03:07)
[2021-10-18] MEDS: LEVOTHYROXINE 75 MCG TABLET PO SCH (04:58)
[2021-10-18] MEDS: HEPARIN for SUB-Q USE 5,000 UNIT/ML VIAL. SQ SCH ×3 (05:00→20:41)
[2021-10-18 07:00] VITALS: BP 130/68
--- NOTE | 2021-10-18 09:13 | PDOC ---
[employer] PROGRESS NOTE Date of Service DOS: DATE: 10/18/21 TIME: 09:12 Chief Complaint Chief Complaint Acute hypoxic respiratory failure secondary to COVID-19 pneumonia with possible superimposed bacterial pneumonia, history non-Hodgkin's lymphoma hypothyroid glaucoma A. fib, hypokalemia, hypomagnesemia -Admit to hospitalist -COVID treatments 6 mg Decadron daily. Given allergies and antibiotic history will continue Levaquin started in ER. Out of window for remdesivir -Provide Combivent inhaler as needed -Wean O2 as tolerated -Home medications resumed as indicated -DVT prophylaxis -Advance diet as tolerated -We will hold off on PT OT and see how she does History of Present Illness History of Present Illness 61-year-old female with a history of metastatic non-Hodgkin's lymphoma presents to the ER for cough and fever x4 weeks. Patient states that she was diagnosed with Covid on September 20, 2021 since then she has been through multiple courses of treatment such as methylprednisone azithromycin and doxycycline. Nothing has seemed to help her symptoms besides rest, movement worsens her cough, clear- colored sputum occasionally associated with her cough. The patient denies any other associated symptoms at this time. Evaluated in the emergency room patient was resting in bed and a little bit distress. Agreeable to admission 10/13/2021 No acute events overnight. Patient doing well and not dyspneic on 95% 2 L nasal cannula. Patient has some cough during my encounter. Patient's chart, labs, images were reviewed and discussed with RN 10/14/2021 No acute events overnight. Patient seen examined bedside. AF and VSS. Saturating 92% on 3 L nasal cannula. Potassium of 2.8 and magnesium 1.6. Replacement with IV and oral electrolyte replacement as needed. Patient's chart, labs, images were reviewed and discussed with RN 10/15/2021 No acute events overnight. Patient saturating 96% on 4 L nasal cannula. Fever overnight of 100.7. Patient seen and examined on recliner. Not short of breath. Ready to go home maybe tomorrow. Will likely need home O2. Patient's chart, labs, images were reviewed and discussed with RN 10/16/2021 No acute events overnight. Patient seen examined bedside. Saturating 90% on 5 to 6 L nasal cannula. Still having some shortness of breath during rest. Not ready to go home at this time. 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 2021-10-17 No acute events overnight. Patient seen examined bedside. Saturating 92% on 7 L nasal cannula. Patient still having increasing O2 requirements. I have reeducated the patient on prone positioning and will have patient use an incentive spirometer. We will repeat a chest x-ray today for worsening progression of her hospital course. Patient's chart, labs, images were reviewed and discussed with RN 10/18: Temp 103.2F overnight. 8L/min NCO2. Feels minimally improved chest radiograph with bilateral patchy opacities. No chest pain pressure progress. Vitals/I&O Vitals/I&O: Vital Signs Date Time Temp Pulse Resp B/P (MAP) Pulse Ox O2 Delivery O2 Flow Rate FiO2 10/18/21 07:00 99.8 100 20 130/68 (88) 88 Nasal Cannula 4.0 99.8 I & O 10/17/21 10/17/21 10/18/21 15:00 23:00 07:00 Intake Total 200 ml Output Total 300 ml Balance -100 ml Physical Exam General: Alert, Oriented X3, Cooperative Heart: Regular rate Lungs: Crackles Abdomen: Normal bowel sounds Extremities: No clubbing Skin: No rashes Labs Labs: Laboratory Tests Test 10/17/21 09:50 White Blood Count 4.8 x10^3/uL (4.0-11.0) Red Blood Count 3.99 x10^6/uL (3.50-5.40) Hemoglobin 11.0 g/dL (12.0-15.5) Hematocrit 33.3 % (36.0-47.0) Mean Corpuscular Volume 84 fL (79-100) Mean Corpuscular Hemoglobin 28 pg (25-35) Mean Corpuscular Hemoglobin Concent 33 g/dL (31-37) Red Cell Distribution Width 13.5 % (11.5-14.5) Platelet Count 172 x10^3/uL (140-400) Neutrophils (%) (Auto) 73 % (31-73) Lymphocytes (%) (Auto) 19 % (24-48) Monocytes (%) (Auto) 8 % (0-9) Eosinophils (%) (Auto) 0 % (0-3) Basophils (%) (Auto) 0 % (0-3) Neutrophils # (Auto) 3.5 x10^3/uL (1.8-7.7) Lymphocytes # (Auto) 0.9 x10^3/uL (1.0-4.8) Monocytes # (Auto) 0.4 x10^3/uL (0.0-1.1) Eosinophils # (Auto) 0.0 x10^3/uL (0.0-0.7) Basophils # (Auto) 0.0 x10^3/uL (0.0-0.2) Sodium Level 139 mmol/L (136-145) Potassium Level 3.6 mmol/L (3.5-5.1) Chloride Level 101 mmol/L (98-107) Carbon Dioxide Level 29 mmol/L (21-32) Anion Gap 9 (6-14) Blood Urea Nitrogen 11 mg/dL (7-20) Creatinine 0.9 mg/dL (0.6-1.0) Estimated GFR (Cockcroft-Gault) 63.7 Glucose Level 104 mg/dL (70-99) Calcium Level 7.8 mg/dL (8.5-10.1) Magnesium Level 1.8 mg/dL (1.8-2.4) Assessment and Plan Assessmemt and Plan Problems Medical Problems: (1) Hypokalemia Status: Acute (2) Pneumonia due to COVID-19 virus Status: Acute (3) Respiratory failure Status: Acute (4) Severe sepsis Status: Acute Comment Review of Relevant I have reviewed the following items kike (where applicable) has been applied. Medications: Current Medications Medications (Trade) Dose Ordered Sig/Angeline Route PRN Reason Start Time Stop Time Status Last Admin Dose Admin Levofloxacin (Levaquin) 750 mg DAILY06 PO 10/18/21 06:00 10/18/21 04:58 Justifications for Admission Other Justification HAO DIGGS MD Oct 18, 2021 09:12
[2021-10-18] MEDS: LACTOBACILLUS RHAMNOSUS GG 1 CAPSULE. PO SCH ×2 (09:48→19:45)
[2021-10-18] MEDS: FLECAINIDE ACETATE 50 MG TABLET. PO SCH ×2 (09:48→19:45)
[2021-10-18] MEDS: SENNOSIDES/DOCUSATE 8.6/50MG TABLET. PO SCH ×2 (09:48→19:46)
[2021-10-18] MEDS: DEXAMETHASONE 4 MG TABLET PO SCH (09:48)
[2021-10-18] MEDS: ASPIRIN CHEWABLE 81 MG TABLET. PO SCH (09:49)
[2021-10-18] MEDS: DULoxetine HCL 30 MG CAPSULE.DR PO SCH (09:49)
[2021-10-18] MEDS: METOPROLOL TART IMMED RELEASE 25 MG TABLET. PO SCH ×2 (09:49→19:47)
[2021-10-18 11:00] VITALS: BP 137/69
[2021-10-18] MEDS: BENZONATATE 100 MG CAPSULE. PO SCH ×3 (11:24→19:45)
[2021-10-18 15:00] VITALS: BP 153/88
--- NOTE | 2021-10-18 16:02 | NUR ---
SW following. Discussed with RN, pt remains on 7L oxygen, COVID-19 positive. Not medically ready for discharge home. 6 minute walk prior to discharge. SW will continue to follow.
[2021-10-18 19:00] VITALS: BP 110/67
[2021-10-18] MEDS: LATANOPROST 0.005% OPHTH SOLUTION 2.5ML BOTTLE. OU SCH (19:45)
[2021-10-18] MEDS: CALCIUM CARBONATE 500 MG TAB.CHEW PO PRN (19:45)
[2021-10-18] MEDS: PROMETHAZINE 12.5 MG TABLET. PO PRN (19:45)
[2021-10-18] MEDS: ZOLPIDEM 5 MG TABLET. PO PRN (19:46)
[2021-10-18] MEDS: guaiFENesin DM 200MG/20MG 10 ML SYRUP PO PRN (19:46)
[2021-10-18] MEDS: diphenhydrAMINE HCL 25 MG CAPSULE PO PRN (19:46)
[2021-10-18] MEDS: CODEINE SULFATE 30 MG TABLET. PO PRN (19:46)
[2021-10-18 23:00] VITALS: BP 128/67
[2021-10-19 03:00] VITALS: BP 140/79
[2021-10-19] MEDS: LEVOTHYROXINE 75 MCG TABLET PO SCH (05:00)
[2021-10-19] MEDS: HEPARIN for SUB-Q USE 5,000 UNIT/ML VIAL. SQ SCH ×3 (05:01→21:27)
[2021-10-19 06:22] LABS: BASO % 0 % (0-3); EOS % 0 % (0-3); HEMATOCRIT 33.6 % (36.0-47.0); HEMOGLOBIN 11.1 g/dL (12.0-15.5); LYMPH # 0.8 x10^3/uL (1.0-4.8); LYMPH % 21 % (24-48); MEAN CORPUSCULAR HEMOGLOBIN 27 pg (25-35); MEAN CORPUSCULAR HGB CONC 33 g/dL (31-37); MEAN CORPUSCULAR VOLUME 83 fL (79-100); MONO # 0.3 x10^3/uL (0.0-1.1); MONO % 7 % (0-9); NEUT # 2.8 x10^3/uL (1.8-7.7); NEUT % 72 % (31-73); PLATELET COUNT 176 x10^3/uL (140-400); RED BLOOD COUNT 4.05 x10^6/uL (3.50-5.40); RED CELL DISTRIBUTION WIDTH 13.7 % (11.5-14.5); WHITE BLOOD COUNT 3.8 x10^3/uL (4.0-11.0)
[2021-10-19 06:55] LABS: ALBUMIN 2.2 g/dL (3.4-5.0); ALBUMIN/GLOBULIN RATIO 0.6 (1.0-1.7); CALCIUM 8.4 mg/dL (8.5-10.1); CREATININE 0.8 mg/dL (0.6-1.0); GFR 72.9; POTASSIUM 3.4 mmol/L (3.5-5.1); TOTAL BILIRUBIN 0.5 mg/dL (0.2-1.0)
[2021-10-19 07:00] VITALS: BP 142/78
[2021-10-19] MEDS: SENNOSIDES/DOCUSATE 8.6/50MG TABLET. PO SCH ×2 (09:48→21:00)
[2021-10-19] MEDS: METOPROLOL TART IMMED RELEASE 25 MG TABLET. PO SCH ×2 (09:48→21:29)
[2021-10-19] MEDS: DEXAMETHASONE 4 MG TABLET PO SCH (09:48)
[2021-10-19] MEDS: DULoxetine HCL 30 MG CAPSULE.DR PO SCH (09:48)
[2021-10-19] MEDS: BENZONATATE 100 MG CAPSULE. PO SCH ×3 (09:48→21:29)
[2021-10-19] MEDS: ASPIRIN CHEWABLE 81 MG TABLET. PO SCH (09:48)
[2021-10-19] MEDS: LACTOBACILLUS RHAMNOSUS GG 1 CAPSULE. PO SCH ×2 (09:48→21:28)
[2021-10-19] MEDS: FLUTICASONE/VILANTEROL 100/25 INHALER. INH SCH (09:49)
[2021-10-19] MEDS: FLECAINIDE ACETATE 50 MG TABLET. PO SCH ×2 (09:49→21:28)
[2021-10-19] MEDS: ACETAMINOPHEN 325 MG TABLET. PO PRN (09:58)
[2021-10-19] MEDS: guaiFENesin DM 200MG/20MG 10 ML SYRUP PO PRN ×3 (09:58→21:28)
[2021-10-19 11:00] VITALS: BP 120/56
--- NOTE | 2021-10-19 12:28 | PDOC ---
[facility] PROGRESS NOTE Date of Service DOS: DATE: 10/19/21 TIME: 12:25 Chief Complaint Chief Complaint Acute hypoxic respiratory failure secondary to COVID-19 pneumonia with possible superimposed bacterial pneumonia, history non-Hodgkin's lymphoma hypothyroid glaucoma A. fib, hypokalemia, hypomagnesemia History of Present Illness History of Present Illness 10/19/2021 Patient seen and examined Discussed with RN Chart reviewed Discussed with case management 61-year-old female with a history of metastatic non-Hodgkin's lymphoma presents to the ER for cough and fever x4 weeks. Patient states that she was diagnosed with Covid on September 20, 2021 since then she has been through multiple courses of treatment such as methylprednisone azithromycin and doxycycline. Nothing has seemed to help her symptoms besides rest, movement worsens her cough, clear- colored sputum occasionally associated with her cough. The patient denies any other associated symptoms at this time. Evaluated in the emergency room patient was resting in bed and a little bit distress. Agreeable to admission 10/13/2021 No acute events overnight. Patient doing well and not dyspneic on 95% 2 L nasal cannula. Patient has some cough during my encounter. Patient's chart, labs, images were reviewed and discussed with RN 10/14/2021 No acute events overnight. Patient seen examined bedside. AF and VSS. Saturating 92% on 3 L nasal cannula. Potassium of 2.8 and magnesium 1.6. Replacement with IV and oral electrolyte replacement as needed. Patient's chart, labs, images were reviewed and discussed with RN 10/15/2021 No acute events overnight. Patient saturating 96% on 4 L nasal cannula. Fever overnight of 100.7. Patient seen and examined on recliner. Not short of breath. Ready to go home maybe tomorrow. Will likely need home O2. Patient's chart, labs, images were reviewed and discussed with RN 10/16/2021 No acute events overnight. Patient seen examined bedside. Saturating 90% on 5 to 6 L nasal cannula. Still having some shortness of breath during rest. Not ready to go home at this time. 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 2021-10-17 No acute events overnight. Patient seen examined bedside. Saturating 92% on 7 L nasal cannula. Patient still having increasing O2 requirements. I have reeducated the patient on prone positioning and will have patient use an incentive spirometer. We will repeat a chest x-ray today for worsening progression of her hospital course. Patient's chart, labs, images were reviewed and discussed with RN 10/18: Temp 103.2F overnight. 8L/min NCO2. Feels minimally improved chest radiograph with bilateral patchy opacities. No chest pain pressure progress. Vitals/I&O Vitals/I&O: Vital Signs Date Time Temp Pulse Resp B/P (MAP) Pulse Ox O2 Delivery O2 Flow Rate FiO2 10/19/21 11:00 100.2 93 20 120/56 (77) 94 Nasal Cannula 4.0 100.2 I & O 10/18/21 10/18/21 10/19/21 15:00 23:00 07:00 Output Total 250 ml Balance -250 ml Physical Exam General: Alert, Oriented X3, Cooperative Heart: Regular rate Lungs: Crackles Abdomen: Normal bowel sounds Extremities: No clubbing Skin: No rashes Labs Labs: Laboratory Tests Test 10/19/21 05:25 White Blood Count 3.8 x10^3/uL (4.0-11.0) Red Blood Count 4.05 x10^6/uL (3.50-5.40) Hemoglobin 11.1 g/dL (12.0-15.5) Hematocrit 33.6 % (36.0-47.0) Mean Corpuscular Volume 83 fL (79-100) Mean Corpuscular Hemoglobin 27 pg (25-35) Mean Corpuscular Hemoglobin Concent 33 g/dL (31-37) Red Cell Distribution Width 13.7 % (11.5-14.5) Platelet Count 176 x10^3/uL (140-400) Neutrophils (%) (Auto) 72 % (31-73) Lymphocytes (%) (Auto) 21 % (24-48) Monocytes (%) (Auto) 7 % (0-9) Eosinophils (%) (Auto) 0 % (0-3) Basophils (%) (Auto) 0 % (0-3) Neutrophils # (Auto) 2.8 x10^3/uL (1.8-7.7) Lymphocytes # (Auto) 0.8 x10^3/uL (1.0-4.8) Monocytes # (Auto) 0.3 x10^3/uL (0.0-1.1) Eosinophils # (Auto) 0.0 x10^3/uL (0.0-0.7) Basophils # (Auto) 0.0 x10^3/uL (0.0-0.2) Sodium Level 137 mmol/L (136-145) Potassium Level 3.4 mmol/L (3.5-5.1) Chloride Level 100 mmol/L (98-107) Carbon Dioxide Level 32 mmol/L (21-32) Anion Gap 5 (6-14) Blood Urea Nitrogen 12 mg/dL (7-20) Creatinine 0.8 mg/dL (0.6-1.0) Estimated GFR (Cockcroft-Gault) 72.9 BUN/Creatinine Ratio 15 (6-20) Glucose Level 99 mg/dL (70-99) Calcium Level 8.4 mg/dL (8.5-10.1) Total Bilirubin 0.5 mg/dL (0.2-1.0) Aspartate Amino Transf (AST/SGOT) 23 U/L (15-37) Alanine Aminotransferase (ALT/SGPT) 34 U/L (14-59) Alkaline Phosphatase 155 U/L (46-116) Total Protein 6.0 g/dL (6.4-8.2) Albumin 2.2 g/dL (3.4-5.0) Albumin/Globulin Ratio 0.6 (1.0-1.7) Assessment and Plan Assessmemt and Plan Problems Medical Problems: (1) Hypokalemia Status: Acute (2) Pneumonia due to COVID-19 virus Status: Acute (3) Respiratory failure Status: Acute (4) Severe sepsis Status: Acute Acute hypoxic respiratory failure secondary to COVID-19 pneumonia with possible superimposed bacterial pneumonia, history non-Hodgkin's lymphoma hypothyroid glaucoma A. fib, hypokalemia, hypomagnesemia Plan Covid protocol (out of window for remdesivir) Trend labs Encourage p.o. intake Trying to wean down O2 Home meds DVT prophylaxis Full code Comment Review of Relevant I have reviewed the following items kike (where applicable) has been applied. Medications: Current Medications Medications (Trade) Dose Ordered Sig/Angeline Route PRN Reason Start Time Stop Time Status Last Admin Dose Admin Fluticasone/ Vilanterol (Breo Ellipta 100-25 Mcg) 1 puff DAILY INH 2/3/22 09:00 10/19/21 09:49 Justifications for Admission Other Justification CINTHYA NOLAN III DO Oct 19, 2021 12:28
[2021-10-19 15:00] VITALS: BP 109/58
[2021-10-19 19:00] VITALS: BP 120/59
[2021-10-19] MEDS: CODEINE SULFATE 30 MG TABLET. PO PRN (21:29)
[2021-10-19] MEDS: ZOLPIDEM 5 MG TABLET. PO PRN (21:29)
[2021-10-19] MEDS: PROMETHAZINE 12.5 MG TABLET. PO PRN (21:29)
[2021-10-19] MEDS: diphenhydrAMINE HCL 25 MG CAPSULE PO PRN (21:30)
[2021-10-19] MEDS: LATANOPROST 0.005% OPHTH SOLUTION 2.5ML BOTTLE. OU SCH (21:30)
[2021-10-19 23:00] VITALS: BP 113/55
[2021-10-20 03:00] VITALS: BP 122/55
[2021-10-20] MEDS: LEVOTHYROXINE 75 MCG TABLET PO SCH (05:13)
[2021-10-20] MEDS: HEPARIN for SUB-Q USE 5,000 UNIT/ML VIAL. SQ SCH ×3 (05:15→21:49)
[2021-10-20 07:00] VITALS: BP 115/50
[2021-10-20] MEDS: DEXAMETHASONE 4 MG TABLET PO SCH (08:37)
[2021-10-20] MEDS: ASPIRIN CHEWABLE 81 MG TABLET. PO SCH (08:37)
[2021-10-20] MEDS: LACTOBACILLUS RHAMNOSUS GG 1 CAPSULE. PO SCH ×2 (08:38→21:47)
[2021-10-20] MEDS: BENZONATATE 100 MG CAPSULE. PO SCH ×3 (08:38→21:47)
[2021-10-20] MEDS: DULoxetine HCL 30 MG CAPSULE.DR PO SCH (08:38)
[2021-10-20] MEDS: FLECAINIDE ACETATE 50 MG TABLET. PO SCH ×2 (08:38→21:47)
[2021-10-20] MEDS: METOPROLOL TART IMMED RELEASE 25 MG TABLET. PO SCH ×2 (08:39→21:47)
[2021-10-20] MEDS: SENNOSIDES/DOCUSATE 8.6/50MG TABLET. PO SCH ×2 (08:39→21:46)
[2021-10-20] MEDS: FLUTICASONE/VILANTEROL 100/25 INHALER. INH SCH (08:46)
[2021-10-20] MEDS: guaiFENesin DM 200MG/20MG 10 ML SYRUP PO PRN ×2 (08:56→17:16)
[2021-10-20] MEDS: ACETAMINOPHEN 325 MG TABLET. PO PRN (08:57)
[2021-10-20 11:00] VITALS: BP 118/53
--- NOTE | 2021-10-20 11:11 | NUR ---
SW following. Discussed with RN, pt from home with , remains on 7L oxygen, COVID-19 positive. Pt will need 6 minute walk prior to discharge. SW will continue to follow.
--- NOTE | 2021-10-20 14:32 | PDOC ---
[employer] [facility] PROGRESS NOTE Date of Service DOS: DATE: 10/20/21 TIME: 13:59 Chief Complaint Chief Complaint Acute hypoxic respiratory failure secondary to COVID-19 pneumonia with possible superimposed bacterial pneumonia, history non-Hodgkin's lymphoma hypothyroid glaucoma A. fib, hypokalemia, hypomagnesemia History of Present Illness History of Present Illness Ms Tenorio 61 yo female with a history of metastatic non-Hodgkin's lymphoma presents to the ER for cough and fever x4 weeks. Patient states that she was diagnosed with Covid on September 20, 2021 since then she has been through multiple courses of treatment such as methylprednisone azithromycin and doxycycline. Nothing has seemed to help her symptoms besides rest, movement worsens her cough, clear-colored sputum occasionally associated with her cough. The patient denies any other associated symptoms at this time. Evaluated in the emergency room patient was resting in bed and a little bit distress. Agreeable to admission 10/13: No acute events overnight. Patient doing well and not dyspneic on 95% 2 L nasal cannula. Patient has some cough during my encounter. Patient's chart, labs, images were reviewed and discussed with RN 10/14: No acute events overnight. Patient seen examined bedside. AF and VSS. Saturating 92% on 3 L nasal cannula. Potassium of 2.8 and magnesium 1.6. Replacement with IV and oral electrolyte replacement as needed. Patient's chart, labs, images were reviewed and discussed with RN 10/15: No acute events overnight. Patient saturating 96% on 4 L nasal cannula. Fever overnight of 100.7. Patient seen and examined on recliner. Not short of breath. Ready to go home maybe tomorrow. Will likely need home O2. 10/16: Patient seen examined bedside. Saturating 90% on 5 to 6 L nasal cannula. Still having some shortness of breath during rest. Not ready to go home at this time. 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 10/17: No acute events overnight. Patient seen examined bedside. Saturating 92% on 7 L nasal cannula. Patient still having increasing O2 requirements. I have reeducated the patient on prone positioning and will have patient use an incentive spirometer. We will repeat a chest x-ray 10/18: Temp 103.2F overnight. 8L/min NCO2. Feels minimally improved chest radiograph with bilateral patchy opacities. No chest pain pressure progress. 10/19: Febrile. On 7l/min O2 10/20: T max 100.3 F. On 7 L/min NC O2 with saturations 92%. She is having some crusty bloody nasal discharge. Feels very short of breath in the mornings but notes it is improving throughout the day and she is stronger trying to walk a little bit with no significant desaturations Vitals/I&O Vitals/I&O: Vital Signs Date Time Temp Pulse Resp B/P (MAP) Pulse Ox O2 Delivery O2 Flow Rate FiO2 10/20/21 11:00 99.3 81 22 118/53 (74) 96 Nasal Cannula 7.0 99.3 I & O 10/19/21 10/19/21 10/20/21 15:00 23:00 07:00 Intake Total 400 ml Balance 400 ml Physical Exam General: Alert, Oriented X3, Cooperative Heart: Regular rate Lungs: Crackles Abdomen: Normal bowel sounds Extremities: No clubbing Skin: No rashes Assessment and Plan Assessmemt and Plan Problems Medical Problems: (1) Hypokalemia Status: Acute (2) Pneumonia due to COVID-19 virus Status: Acute (3) Respiratory failure Status: Acute (4) Severe sepsis Status: Acute Comment Review of Relevant I have reviewed the following items kike (where applicable) has been applied. Justifications for Admission Other Justification HAO DIGGS MD Oct 20, 2021 14:32
[2021-10-20] MEDS ORDERED: SODIUM CHLORIDE 0.65% NASAL SPRAY 45ML BOTTLE. NS PRN (14:45)
[2021-10-20 15:00] VITALS: BP 127/43
[2021-10-20 19:00] VITALS: BP 111/34
[2021-10-20] MEDS: LATANOPROST 0.005% OPHTH SOLUTION 2.5ML BOTTLE. OU SCH (21:47)
[2021-10-20 23:00] VITALS: BP 112/53
[2021-10-20] MEDS: CODEINE SULFATE 30 MG TABLET. PO PRN (23:43)
[2021-10-20] MEDS: PROMETHAZINE 12.5 MG TABLET. PO PRN (23:43)
[2021-10-21 03:00] VITALS: BP 125/58
[2021-10-21] MEDS: CALCIUM CARBONATE 500 MG TAB.CHEW PO PRN (04:19)
--- NOTE | 2021-10-21 04:23 | EKG ---
[facility] [address] [place] [address] Test Date: 2021-10-21 Test Time: 03:49:37 Pat Name: DEVAN LIU Department: Room: [facility] Gender: F Testing Specialist: MARBIN : 1960 Requested By: HAO GARAY Order Number: [id number] Reading MD: Levi Lara Measurements Intervals [place] Rate: 81 P: 27 [place]: 118 QRS: -4 QRSD: 86 T: 3 QT: 382 QTc: 449 Interpretive Statements SINUS RHYTHM LEFTWARD AXIS NON SPECIFIC T WAVE CHANGES Electronically Signed On 10-23-2021 12:07:10 ROOM SERVICE CLERK by Levi Lara
[2021-10-21] MEDS: HEPARIN for SUB-Q USE 5,000 UNIT/ML VIAL. SQ SCH ×3 (06:03→20:55)
[2021-10-21] MEDS: LEVOTHYROXINE 75 MCG TABLET PO SCH (06:04)
[2021-10-21 07:00] VITALS: BP 136/62
[2021-10-21] MEDS: ASPIRIN CHEWABLE 81 MG TABLET. PO SCH (09:24)
[2021-10-21] MEDS: BENZONATATE 100 MG CAPSULE. PO SCH ×3 (09:24→20:56)
[2021-10-21] MEDS: DEXAMETHASONE 4 MG TABLET PO SCH (09:24)
[2021-10-21] MEDS: SENNOSIDES/DOCUSATE 8.6/50MG TABLET. PO SCH ×3 (09:24→21:00)
[2021-10-21] MEDS: FLECAINIDE ACETATE 50 MG TABLET. PO SCH ×2 (09:25→21:00)
[2021-10-21] MEDS: LACTOBACILLUS RHAMNOSUS GG 1 CAPSULE. PO SCH ×2 (09:25→20:57)
[2021-10-21] MEDS: DULoxetine HCL 30 MG CAPSULE.DR PO SCH (09:25)
[2021-10-21] MEDS: METOPROLOL TART IMMED RELEASE 25 MG TABLET. PO SCH ×2 (09:25→21:00)
[2021-10-21] MEDS: FLUTICASONE/VILANTEROL 100/25 INHALER. INH SCH (09:27)
[2021-10-21] MEDS: PROMETHAZINE 12.5 MG TABLET. PO PRN ×2 (09:43→23:51)
[2021-10-21] MEDS: ACETAMINOPHEN 325 MG TABLET. PO PRN (09:43)
[2021-10-21] MEDS: CODEINE SULFATE 30 MG TABLET. PO PRN ×2 (09:44→23:56)
[2021-10-21] MEDS: guaiFENesin DM 200MG/20MG 10 ML SYRUP PO PRN ×3 (09:53→23:51)
[2021-10-21 11:00] VITALS: BP 122/46
[2021-10-21 15:00] VITALS: BP 112/40
--- NOTE | 2021-10-21 17:34 | PDOC ---
[employer] PROGRESS NOTE Date of Service DOS: DATE: 10/21/21 TIME: 17:32 Chief Complaint Chief Complaint Acute hypoxic respiratory failure secondary to COVID-19 pneumonia with possible superimposed bacterial pneumonia, history non-Hodgkin's lymphoma hypothyroid glaucoma A. fib, hypokalemia, hypomagnesemia History of Present Illness History of Present Illness Ms Tenorio 61 yo female with a history of metastatic non-Hodgkin's lymphoma presents to the ER for cough and fever x4 weeks. Patient states that she was diagnosed with Covid on September 20, 2021 since then she has been through multiple courses of treatment such as methylprednisone azithromycin and doxycycline. Nothing has seemed to help her symptoms besides rest, movement worsens her cough, clear-colored sputum occasionally associated with her cough. The patient denies any other associated symptoms at this time. Evaluated in the emergency room patient was resting in bed and a little bit distress. Agreeable to admission 10/13: No acute events overnight. Patient doing well and not dyspneic on 95% 2 L nasal cannula. Patient has some cough during my encounter. Patient's chart, labs, images were reviewed and discussed with RN 10/14: No acute events overnight. Patient seen examined bedside. AF and VSS. Saturating 92% on 3 L nasal cannula. Potassium of 2.8 and magnesium 1.6. Replacement with IV and oral electrolyte replacement as needed. Patient's chart, labs, images were reviewed and discussed with RN 10/15: No acute events overnight. Patient saturating 96% on 4 L nasal cannula. Fever overnight of 100.7. Patient seen and examined on recliner. Not short of breath. Ready to go home maybe tomorrow. Will likely need home O2. 10/16: Patient seen examined bedside. Saturating 90% on 5 to 6 L nasal cannula. Still having some shortness of breath during rest. Not ready to go home at this time. 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 10/17: No acute events overnight. Patient seen examined bedside. Saturating 92% on 7 L nasal cannula. Patient still having increasing O2 requirements. I have reeducated the patient on prone positioning and will have patient use an incentive spirometer. We will repeat a chest x-ray 10/18: Temp 103.2F overnight. 8L/min NCO2. Feels minimally improved chest radiograph with bilateral patchy opacities. No chest pain pressure progress. 2: Febrile. On 7l/min O2 10/20: T max 100.3 F. On 7 L/min NC O2 with saturations 92%. She is having some crusty bloody nasal discharge. Feels very short of breath in the mornings but notes it is improving throughout the day and she is stronger trying to walk a little bit with no significant desaturations 10/21: On 7 L/min NC O2 saturations 97%. Feels she is breathing little better still with cough. Feeling weak think she is stronger today. She says she had a fever of 100.6 F. Vitals/I&O Vitals/I&O: Vital Signs Date Time Temp Pulse Resp B/P (MAP) Pulse Ox O2 Delivery O2 Flow Rate FiO2 10/21/21 15:00 96.7 87 20 112/40 (64) 97 Nasal Cannula 7.0 96.7 I & O 10/20/21 10/20/21 10/21/21 15:00 23:00 07:00 Output Total 200 ml Balance -200 ml Physical Exam General: Alert, Oriented X3, Cooperative Heart: Regular rate Lungs: Crackles Abdomen: Normal bowel sounds Extremities: No clubbing Skin: No rashes Assessment and Plan Assessmemt and Plan Problems Medical Problems: (1) Hypokalemia Status: Acute (2) Pneumonia due to COVID-19 virus Status: Acute (3) Respiratory failure Status: Acute (4) Severe sepsis Status: Acute Comment Review of Relevant I have reviewed the following items kike (where applicable) has been applied. Justifications for Admission Other Justification HAO DIGGS MD Oct 21, 2021 17:34
[2021-10-21 19:00] VITALS: BP 98/53
[2021-10-21] MEDS: LATANOPROST 0.005% OPHTH SOLUTION 2.5ML BOTTLE. OU SCH (21:18)
[2021-10-21 23:00] VITALS: BP 124/60
[2021-10-22 03:00] VITALS: BP 135/62
[2021-10-22] MEDS: HEPARIN for SUB-Q USE 5,000 UNIT/ML VIAL. SQ SCH ×3 (05:23→21:25)
[2021-10-22] MEDS: LEVOTHYROXINE 75 MCG TABLET PO SCH (05:24)
[2021-10-22 07:00] VITALS: BP 122/61
[2021-10-22] MEDS: SENNOSIDES/DOCUSATE 8.6/50MG TABLET. PO SCH ×2 (08:10→21:00)
[2021-10-22 08:23] LABS: ALBUMIN 2.1 g/dL (3.4-5.0); CALCIUM 8.2 mg/dL (8.5-10.1); CREATININE 0.7 mg/dL (0.6-1.0); GFR 85.1; MAGNESIUM 2.2 mg/dL (1.8-2.4); PHOSPHORUS 4.9 mg/dL (2.6-4.7); POTASSIUM 4.4 mmol/L (3.5-5.1)
[2021-10-22] MEDS: ASPIRIN CHEWABLE 81 MG TABLET. PO SCH (08:43)
[2021-10-22] MEDS: METOPROLOL TART IMMED RELEASE 25 MG TABLET. PO SCH ×2 (08:43→21:23)
[2021-10-22] MEDS: FLECAINIDE ACETATE 50 MG TABLET. PO SCH ×2 (08:43→21:23)
[2021-10-22] MEDS: BENZONATATE 100 MG CAPSULE. PO SCH ×3 (08:44→21:23)
[2021-10-22] MEDS: LACTOBACILLUS RHAMNOSUS GG 1 CAPSULE. PO SCH ×2 (08:44→21:23)
[2021-10-22] MEDS: DULoxetine HCL 30 MG CAPSULE.DR PO SCH (08:44)
[2021-10-22] MEDS: DEXAMETHASONE 4 MG TABLET PO SCH (08:44)
[2021-10-22] MEDS: guaiFENesin DM 200MG/20MG 10 ML SYRUP PO PRN ×2 (08:44→18:08)
[2021-10-22] MEDS: FLUTICASONE/VILANTEROL 100/25 INHALER. INH SCH (08:48)
[2021-10-22 11:00] VITALS: BP 129/47
--- NOTE | 2021-10-22 14:03 | PDOC ---
[employer] [facility] PROGRESS NOTE Date of Service DOS: DATE: 10/22/21 TIME: 13:47 Chief Complaint Chief Complaint Acute hypoxic respiratory failure secondary to COVID-19 pneumonia with possible superimposed bacterial pneumonia, history non-Hodgkin's lymphoma hypothyroid glaucoma A. fib, hypokalemia, hypomagnesemia History of Present Illness History of Present Illness Ms Tenorio 61 yo female with a history of metastatic non-Hodgkin's lymphoma presents to the ER for cough and fever x4 weeks. Patient states that she was diagnosed with Covid on September 20, 2021 since then she has been through multiple courses of treatment such as methylprednisone azithromycin and doxycycline. Nothing has seemed to help her symptoms besides rest, movement worsens her cough, clear-colored sputum occasionally associated with her cough. The patient denies any other associated symptoms at this time. Evaluated in the emergency room patient was resting in bed and a little bit distress. Agreeable to admission 10/13: No acute events overnight. Patient doing well and not dyspneic on 95% 2 L nasal cannula. Patient has some cough during my encounter. Patient's chart, labs, images were reviewed and discussed with RN 10/14: No acute events overnight. Patient seen examined bedside. AF and VSS. Saturating 92% on 3 L nasal cannula. Potassium of 2.8 and magnesium 1.6. Replacement with IV and oral electrolyte replacement as needed. Patient's chart, labs, images were reviewed and discussed with RN 10/15: No acute events overnight. Patient saturating 96% on 4 L nasal cannula. Fever overnight of 100.7. Patient seen and examined on recliner. Not short of breath. Ready to go home maybe tomorrow. Will likely need home O2. 10/16: Patient seen examined bedside. Saturating 90% on 5 to 6 L nasal cannula. Still having some shortness of breath during rest. Not ready to go home at this time. 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 10/17: No acute events overnight. Patient seen examined bedside. Saturating 92% on 7 L nasal cannula. Patient still having increasing O2 requirements. I have reeducated the patient on prone positioning and will have patient use an incentive spirometer. We will repeat a chest x-ray 10/18: Temp 103.2F overnight. 8L/min NCO2. Feels minimally improved chest radiograph with bilateral patchy opacities. No chest pain pressure progress. 2: Febrile. On 7l/min O2 10/20: T max 100.3 F. On 7 L/min NC O2 with saturations 92%. She is having some crusty bloody nasal discharge. Feels very short of breath in the mornings but notes it is improving throughout the day and she is stronger trying to walk a little bit with no significant desaturations 10/21: On 7 L/min NC O2 saturations 97%. Feels she is breathing little better still with cough. Feeling weak think she is stronger today. She says she had a fever of 100.6 F. 10/22: On 6 L nasal nasal cannula O2 saturations 94%. Has bibasilar crackles but she has been doing more lung exercises and incentive spirometer still with cough. No fevers as of yet. Able to ambulate around the room without significant desaturations. Vitals/I&O Vitals/I&O: Vital Signs Date Time Temp Pulse Resp B/P (MAP) Pulse Ox O2 Delivery O2 Flow Rate FiO2 10/22/21 11:00 98.3 92 20 129/47 (74) 91 Nasal Cannula 6.0 98.3 I & O 10/21/21 10/21/21 10/22/21 15:00 23:00 07:00 Output Total 1000 ml 400 ml Balance -1000 ml -400 ml Physical Exam General: Alert, Oriented X3, Cooperative Heart: Regular rate Lungs: Crackles Abdomen: Normal bowel sounds Extremities: No clubbing Skin: No rashes Labs Labs: Laboratory Tests Test 10/22/21 07:00 Sodium Level 144 mmol/L (136-145) Potassium Level 4.4 mmol/L (3.5-5.1) Chloride Level 102 mmol/L (98-107) Carbon Dioxide Level 34 mmol/L (21-32) Anion Gap 8 (6-14) Blood Urea Nitrogen 13 mg/dL (7-20) Creatinine 0.7 mg/dL (0.6-1.0) Estimated GFR (Cockcroft-Gault) 85.1 Glucose Level 96 mg/dL (70-99) Calcium Level 8.2 mg/dL (8.5-10.1) Phosphorus Level 4.9 mg/dL (2.6-4.7) Magnesium Level 2.2 mg/dL (1.8-2.4) Albumin 2.1 g/dL (3.4-5.0) Assessment and Plan Assessmemt and Plan Problems Medical Problems: (1) Hypokalemia Status: Acute (2) Pneumonia due to COVID-19 virus Status: Acute (3) Respiratory failure Status: Acute (4) Severe sepsis Status: Acute Comment Review of Relevant I have reviewed the following items kike (where applicable) has been applied. Justifications for Admission Other Justification HAO DIGGS MD Oct 22, 2021 14:03
[2021-10-22 15:00] VITALS: BP 113/53
[2021-10-22 19:00] VITALS: BP 113/56
[2021-10-22] MEDS: LATANOPROST 0.005% OPHTH SOLUTION 2.5ML BOTTLE. OU SCH (21:22)
[2021-10-22 23:26] VITALS: BP 121/64
[2021-10-22] MEDS: PROMETHAZINE 12.5 MG TABLET. PO PRN (23:26)
[2021-10-22] MEDS: CODEINE SULFATE 30 MG TABLET. PO PRN (23:27)
[2021-10-23 03:15] VITALS: BP 127/69
[2021-10-23] MEDS: LEVOTHYROXINE 75 MCG TABLET PO SCH ×2 (05:20→10:06)
[2021-10-23 07:00] VITALS: BP 113/59
[2021-10-23] MEDS: SENNOSIDES/DOCUSATE 8.6/50MG TABLET. PO SCH ×2 (09:00→20:53)
[2021-10-23] MEDS: METOPROLOL TART IMMED RELEASE 25 MG TABLET. PO SCH ×2 (09:00→20:53)
[2021-10-23] MEDS: HEPARIN for SUB-Q USE 5,000 UNIT/ML VIAL. SQ SCH ×3 (09:00→23:58)
--- NOTE | 2021-10-23 09:08 | PDOC ---
[employer] [facility] PROGRESS NOTE Date of Service DOS: DATE: 10/23/21 TIME: 09:08 Chief Complaint Chief Complaint Acute hypoxic respiratory failure secondary to COVID-19 pneumonia with possible superimposed bacterial pneumonia, history non-Hodgkin's lymphoma hypothyroid glaucoma A. fib, hypokalemia, hypomagnesemia History of Present Illness History of Present Illness Ms Tenorio 61 yo female with a history of metastatic non-Hodgkin's lymphoma presents to the ER for cough and fever x4 weeks. Patient states that she was diagnosed with Covid on September 20, 2021 since then she has been through multiple courses of treatment such as methylprednisone azithromycin and doxycycline. Nothing has seemed to help her symptoms besides rest, movement worsens her cough, clear-colored sputum occasionally associated with her cough. The patient denies any other associated symptoms at this time. Evaluated in the emergency room patient was resting in bed and a little bit distress. Agreeable to admission 10/13: No acute events overnight. Patient doing well and not dyspneic on 95% 2 L nasal cannula. Patient has some cough during my encounter. Patient's chart, labs, images were reviewed and discussed with RN 10/14: No acute events overnight. Patient seen examined bedside. AF and VSS. Saturating 92% on 3 L nasal cannula. Potassium of 2.8 and magnesium 1.6. Replacement with IV and oral electrolyte replacement as needed. Patient's chart, labs, images were reviewed and discussed with RN 10/15: No acute events overnight. Patient saturating 96% on 4 L nasal cannula. Fever overnight of 100.7. Patient seen and examined on recliner. Not short of breath. Ready to go home maybe tomorrow. Will likely need home O2. 10/16: Patient seen examined bedside. Saturating 90% on 5 to 6 L nasal cannula. Still having some shortness of breath during rest. Not ready to go home at this time. 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 10/17: No acute events overnight. Patient seen examined bedside. Saturating 92% on 7 L nasal cannula. Patient still having increasing O2 requirements. I have reeducated the patient on prone positioning and will have patient use an incentive spirometer. We will repeat a chest x-ray 10/18: Temp 103.2F overnight. 8L/min NCO2. Feels minimally improved chest radiograph with bilateral patchy opacities. No chest pain pressure progress. 2: Febrile. On 7l/min O2 10/20: T max 100.3 F. On 7 L/min NC O2 with saturations 92%. She is having some crusty bloody nasal discharge. Feels very short of breath in the mornings but notes it is improving throughout the day and she is stronger trying to walk a little bit with no significant desaturations 10/21: On 7 L/min NC O2 saturations 97%. Feels she is breathing little better still with cough. Feeling weak think she is stronger today. She says she had a fever of 100.6 F. 10/22: On 6 L nasal nasal cannula O2 saturations 94%. Has bibasilar crackles but she has been doing more lung exercises and incentive spirometer still with cough. No fevers as of yet. Able to ambulate around the room without significant desaturations. 10/23: 6 L/min nasal cannula saturations 94 to 96%. Still with bibasilar crackles 24 hours without a fever. To ambulate on her own but occasionally does desaturate into the 80s but recovers quickly with rest. Tentatively planning for 6-minute walk in the next 24 to 48 hours continue to wean down steroids. S he does complain of a little bit of a sore throat no signs of thrush. Vitals/I&O Vitals/I&O: Vital Signs Date Time Temp Pulse Resp B/P (MAP) Pulse Ox O2 Delivery O2 Flow Rate FiO2 10/23/21 07:00 97.7 79 20 113/59 (77) 90 Nasal Cannula 6.0 97.7 I & O 10/22/21 10/22/21 10/23/21 15:00 23:00 07:00 Intake Total 60 ml Balance 60 ml Physical Exam General: Alert, Oriented X3, Cooperative Heart: Regular rate Lungs: Crackles Abdomen: Normal bowel sounds Extremities: No clubbing Skin: No rashes Assessment and Plan Assessmemt and Plan Problems Medical Problems: (1) Hypokalemia Status: Acute (2) Pneumonia due to COVID-19 virus Status: Acute (3) Respiratory failure Status: Acute (4) Severe sepsis Status: Acute Comment Review of Relevant I have reviewed the following items kike (where applicable) has been applied. Medications: Current Medications Medications (Trade) Dose Ordered Sig/Angeline Route PRN Reason Start Time Stop Time Status Last Admin Dose Admin Heparin Sodium (Porcine) (Heparin Sodium) 5,000 unit Q12HR SQ 10/22/21 21:00 10/22/21 21:25 Justifications for Admission Other Justification HAO DIGGS MD Oct 23, 2021 09:08
[2021-10-23] MEDS: FLUTICASONE/VILANTEROL 100/25 INHALER. INH SCH (10:06)
[2021-10-23] MEDS: DULoxetine HCL 30 MG CAPSULE.DR PO SCH (10:07)
[2021-10-23] MEDS: BENZONATATE 100 MG CAPSULE. PO SCH ×3 (10:07→20:53)
[2021-10-23] MEDS: guaiFENesin DM 200MG/20MG 10 ML SYRUP PO PRN ×2 (10:07→21:05)
[2021-10-23] MEDS: DEXAMETHASONE 4 MG TABLET PO SCH (10:07)
[2021-10-23] MEDS: LACTOBACILLUS RHAMNOSUS GG 1 CAPSULE. PO SCH ×2 (10:07→20:53)
[2021-10-23] MEDS: FLECAINIDE ACETATE 50 MG TABLET. PO SCH ×2 (10:07→20:52)
[2021-10-23] MEDS: ASPIRIN CHEWABLE 81 MG TABLET. PO SCH (10:07)
--- NOTE | 2021-10-23 10:47 | NUR ---
SW following. Discussed with RN, pt from home with , 6L (does not use oxygen at home), COVID-19 positive. Pt will need a 6 minute walk prior to discharge. SW will continue to follow.
[2021-10-23 11:00] VITALS: BP 113/57
[2021-10-23 15:00] VITALS: BP 106/62
[2021-10-23 19:00] VITALS: BP 109/58
[2021-10-23] MEDS: CODEINE SULFATE 30 MG TABLET. PO PRN (20:53)
[2021-10-23] MEDS: LATANOPROST 0.005% OPHTH SOLUTION 2.5ML BOTTLE. OU SCH (20:53)
[2021-10-23 23:00] VITALS: BP 114/56
[2021-10-23] MEDS: PROMETHAZINE 12.5 MG TABLET. PO PRN (23:07)
[2021-10-24 03:00] VITALS: BP 101/54
[2021-10-24] MEDS: LEVOTHYROXINE 75 MCG TABLET PO SCH (06:01)
[2021-10-24 07:00] VITALS: BP 163/82
[2021-10-24] MEDS: FLUTICASONE/VILANTEROL 100/25 INHALER. INH SCH (09:00)
[2021-10-24] MEDS: SENNOSIDES/DOCUSATE 8.6/50MG TABLET. PO SCH ×2 (09:00→20:10)
[2021-10-24] MEDS: DULoxetine HCL 30 MG CAPSULE.DR PO SCH (09:06)
[2021-10-24] MEDS: BENZONATATE 100 MG CAPSULE. PO SCH ×3 (09:06→20:09)
[2021-10-24] MEDS: METOPROLOL TART IMMED RELEASE 25 MG TABLET. PO SCH ×3 (09:07→20:11)
[2021-10-24] MEDS: DEXAMETHASONE 4 MG TABLET PO SCH (09:07)
[2021-10-24] MEDS: FLECAINIDE ACETATE 50 MG TABLET. PO SCH ×2 (09:07→20:10)
[2021-10-24] MEDS: guaiFENesin DM 200MG/20MG 10 ML SYRUP PO PRN ×2 (09:08→20:09)
[2021-10-24] MEDS: LACTOBACILLUS RHAMNOSUS GG 1 CAPSULE. PO SCH ×2 (09:08→20:09)
[2021-10-24] MEDS: ASPIRIN CHEWABLE 81 MG TABLET. PO SCH (09:08)
[2021-10-24 11:00] VITALS: BP 106/47
[2021-10-24] MEDS: HEPARIN for SUB-Q USE 5,000 UNIT/ML VIAL. SQ SCH ×2 (11:33→20:11)
[2021-10-24 15:00] VITALS: BP 107/49
--- NOTE | 2021-10-24 18:10 | PDOC ---
[employer] PROGRESS NOTE Date of Service DOS: DATE: 10/24/21 TIME: 18:09 Chief Complaint Chief Complaint Acute hypoxic respiratory failure secondary to COVID-19 pneumonia with possible superimposed bacterial pneumonia, history non-Hodgkin's lymphoma hypothyroid glaucoma A. fib, hypokalemia, hypomagnesemia History of Present Illness History of Present Illness Ms Tenorio 61 yo female with a history of metastatic non-Hodgkin's lymphoma presents to the ER for cough and fever x4 weeks. Patient states that she was diagnosed with Covid on September 20, 2021 since then she has been through multiple courses of treatment such as methylprednisone azithromycin and doxycycline. Nothing has seemed to help her symptoms besides rest, movement worsens her cough, clear-colored sputum occasionally associated with her cough. The patient denies any other associated symptoms at this time. Evaluated in the emergency room patient was resting in bed and a little bit distress. Agreeable to admission 10/13: No acute events overnight. Patient doing well and not dyspneic on 95% 2 L nasal cannula. Patient has some cough during my encounter. Patient's chart, labs, images were reviewed and discussed with RN 10/14: No acute events overnight. Patient seen examined bedside. AF and VSS. Saturating 92% on 3 L nasal cannula. Potassium of 2.8 and magnesium 1.6. Replacement with IV and oral electrolyte replacement as needed. Patient's chart, labs, images were reviewed and discussed with RN 10/15: No acute events overnight. Patient saturating 96% on 4 L nasal cannula. Fever overnight of 100.7. Patient seen and examined on recliner. Not short of breath. Ready to go home maybe tomorrow. Will likely need home O2. 10/16: Patient seen examined bedside. Saturating 90% on 5 to 6 L nasal cannula. Still having some shortness of breath during rest. Not ready to go home at this time. 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 10/17: No acute events overnight. Patient seen examined bedside. Saturating 92% on 7 L nasal cannula. Patient still having increasing O2 requirements. I have reeducated the patient on prone positioning and will have patient use an incentive spirometer. We will repeat a chest x-ray 10/18: Temp 103.2F overnight. 8L/min NCO2. Feels minimally improved chest radiograph with bilateral patchy opacities. No chest pain pressure progress. 2: Febrile. On 7l/min O2 10/20: T max 100.3 F. On 7 L/min NC O2 with saturations 92%. She is having some crusty bloody nasal discharge. Feels very short of breath in the mornings but notes it is improving throughout the day and she is stronger trying to walk a little bit with no significant desaturations 10/21: On 7 L/min NC O2 saturations 97%. Feels she is breathing little better still with cough. Feeling weak think she is stronger today. She says she had a fever of 100.6 F. 10/22: On 6 L nasal nasal cannula O2 saturations 94%. Has bibasilar crackles but she has been doing more lung exercises and incentive spirometer still with cough. No fevers as of yet. Able to ambulate around the room without significant desaturations. 10/23: 6 L/min nasal cannula saturations 94 to 96%. Still with bibasilar crackles 24 hours without a fever. To ambulate on her own but occasionally does desaturate into the 80s but recovers quickly with rest. Tentatively planning for 6-minute walk in the next 24 to 48 hours continue to wean down steroids. S he does complain of a little bit of a sore throat no signs of thrush. 10/24: Seen on 5 L/min nasal cannula saturations 92%. No fevers. Still with some left basilar crackles. Does have some desaturations with ambulation. Vitals/I&O Vitals/I&O: Vital Signs Date Time Temp Pulse Resp B/P (MAP) Pulse Ox O2 Delivery O2 Flow Rate FiO2 10/24/21 15:00 99.1 84 107/49 (68) 94 Nasal Cannula 6.0 99.1 10/23/21 23:00 18 Physical Exam General: Alert, Oriented X3, Cooperative Heart: Regular rate Lungs: Crackles Abdomen: Normal bowel sounds Extremities: No clubbing Skin: No rashes Assessment and Plan Assessmemt and Plan Problems Medical Problems: (1) Hypokalemia Status: Acute (2) Pneumonia due to COVID-19 virus Status: Acute (3) Respiratory failure Status: Acute (4) Severe sepsis Status: Acute Comment Review of Relevant I have reviewed the following items kike (where applicable) has been applied. Justifications for Admission Other Justification HAO DIGGS MD Oct 24, 2021 18:10
[2021-10-24 19:00] VITALS: BP 108/57
[2021-10-24] MEDS: LATANOPROST 0.005% OPHTH SOLUTION 2.5ML BOTTLE. OU SCH (20:10)
[2021-10-24] MEDS: PROMETHAZINE 12.5 MG TABLET. PO PRN (22:59)
[2021-10-24] MEDS: CODEINE SULFATE 30 MG TABLET. PO PRN (22:59)
[2021-10-24 23:00] VITALS: BP 106/55
[2021-10-25 03:00] VITALS: BP 110/53
[2021-10-25] MEDS: LEVOTHYROXINE 75 MCG TABLET PO SCH (06:01)
--- NOTE | 2021-10-25 06:41 | PDOC ---
[employer] PROGRESS NOTE Date of Service DOS: DATE: 10/25/21 TIME: 06:40 Chief Complaint Chief Complaint Acute hypoxic respiratory failure secondary to COVID-19 pneumonia with possible superimposed bacterial pneumonia, history non-Hodgkin's lymphoma hypothyroid glaucoma A. fib, hypokalemia, hypomagnesemia History of Present Illness History of Present Illness Ms Tenorio 61 yo female with a history of metastatic non-Hodgkin's lymphoma presents to the ER for cough and fever x4 weeks. Patient states that she was diagnosed with Covid on September 20, 2021 since then she has been through multiple courses of treatment such as methylprednisone azithromycin and doxycycline. Nothing has seemed to help her symptoms besides rest, movement worsens her cough, clear-colored sputum occasionally associated with her cough. The patient denies any other associated symptoms at this time. Evaluated in the emergency room patient was resting in bed and a little bit distress. Agreeable to admission 10/13: No acute events overnight. Patient doing well and not dyspneic on 95% 2 L nasal cannula. Patient has some cough during my encounter. Patient's chart, labs, images were reviewed and discussed with RN 10/14: No acute events overnight. Patient seen examined bedside. AF and VSS. Saturating 92% on 3 L nasal cannula. Potassium of 2.8 and magnesium 1.6. Replacement with IV and oral electrolyte replacement as needed. Patient's chart, labs, images were reviewed and discussed with RN 10/15: No acute events overnight. Patient saturating 96% on 4 L nasal cannula. Fever overnight of 100.7. Patient seen and examined on recliner. Not short of breath. Ready to go home maybe tomorrow. Will likely need home O2. 10/16: Patient seen examined bedside. Saturating 90% on 5 to 6 L nasal cannula. Still having some shortness of breath during rest. Not ready to go home at this time. 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 10/17: No acute events overnight. Patient seen examined bedside. Saturating 92% on 7 L nasal cannula. Patient still having increasing O2 requirements. I have reeducated the patient on prone positioning and will have patient use an incentive spirometer. We will repeat a chest x-ray 10/18: Temp 103.2F overnight. 8L/min NCO2. Feels minimally improved chest radiograph with bilateral patchy opacities. No chest pain pressure progress. 2: Febrile. On 7l/min O2 10/20: T max 100.3 F. On 7 L/min NC O2 with saturations 92%. She is having some crusty bloody nasal discharge. Feels very short of breath in the mornings but notes it is improving throughout the day and she is stronger trying to walk a little bit with no significant desaturations 10/21: On 7 L/min NC O2 saturations 97%. Feels she is breathing little better still with cough. Feeling weak think she is stronger today. She says she had a fever of 100.6 F. 10/22: On 6 L nasal nasal cannula O2 saturations 94%. Has bibasilar crackles but she has been doing more lung exercises and incentive spirometer still with cough. No fevers as of yet. Able to ambulate around the room without significant desaturations. 10/23: 6 L/min nasal cannula saturations 94 to 96%. Still with bibasilar crackles 24 hours without a fever. To ambulate on her own but occasionally does desaturate into the 80s but recovers quickly with rest. Tentatively planning for 6-minute walk in the next 24 to 48 hours continue to wean down steroids. S he does complain of a little bit of a sore throat no signs of thrush. 10/24: Seen on 5 L/min nasal cannula saturations 92%. No fevers. Still with some left basilar crackles. Does have some desaturations with ambulation. 10/25: Seen in chair on 5 L/min nasal cannula saturations 94%. Afebrile. Cough is improving minimal left basilar crackles. She is anxious to be discharged soon. 6-minute walk ordered Vitals/I&O Vitals/I&O: Vital Signs Date Time Temp Pulse Resp B/P (MAP) Pulse Ox O2 Delivery O2 Flow Rate FiO2 10/25/21 03:00 97.9 83 17 110/53 (72) 94 Nasal Cannula 5.0 97.9 Physical Exam General: Alert, Oriented X3, Cooperative Heart: Regular rate Lungs: Crackles Abdomen: Normal bowel sounds Extremities: No clubbing Skin: No rashes Assessment and Plan Assessmemt and Plan Problems Medical Problems: (1) Hypokalemia Status: Acute (2) Pneumonia due to COVID-19 virus Status: Acute (3) Respiratory failure Status: Acute (4) Severe sepsis Status: Acute Comment Review of Relevant I have reviewed the following items kike (where applicable) has been applied. Justifications for Admission Other Justification HAO DIGGS MD Oct 25, 2021 06:40
[2021-10-25 07:55] VITALS: BP 119/62
[2021-10-25] MEDS: FLUTICASONE/VILANTEROL 100/25 INHALER. INH SCH (09:00)
[2021-10-25] MEDS: SENNOSIDES/DOCUSATE 8.6/50MG TABLET. PO SCH (09:00)
[2021-10-25] MEDS: guaiFENesin DM 200MG/20MG 10 ML SYRUP PO PRN (09:21)
[2021-10-25] MEDS: FLECAINIDE ACETATE 50 MG TABLET. PO SCH (09:21)
[2021-10-25] MEDS: ASPIRIN CHEWABLE 81 MG TABLET. PO SCH (09:21)
[2021-10-25] MEDS: DULoxetine HCL 30 MG CAPSULE.DR PO SCH (09:21)
[2021-10-25] MEDS: BENZONATATE 100 MG CAPSULE. PO SCH (09:22)
[2021-10-25] MEDS: LACTOBACILLUS RHAMNOSUS GG 1 CAPSULE. PO SCH (09:22)
[2021-10-25] MEDS: METOPROLOL TART IMMED RELEASE 25 MG TABLET. PO SCH (09:22)
[2021-10-25] MEDS: HEPARIN for SUB-Q USE 5,000 UNIT/ML VIAL. SQ SCH (09:24)
[2021-10-25 11:45] VITALS: BP 107/50
[2021-10-25 14:26] VITALS: BP 102/52
--- NOTE | 2021-10-25 16:00 | NUR ---
PT discharged home with [facility] oxygen. discharge instructions discussed with patient, verbalized understanding. no other needs. transported off unit via wheelchair with oxygen tank, tubing, and all belongings.
--- NOTE | 2021-10-25 16:17 | NUR ---
SW following. Discussed with RN, pt completed 6 minute walk needing 4L at rest, 6L with exertion. SW arranged with [employer]. Pt discharging home.
== END 2021-10-25 16:00 | disposition home or self-care (01) | DRG 871 ==
LOC: ER 10:39 → ED HOLD 14:35 → 5 SOUTH 16:06
PROVIDERS: ADMIT Student in an Organized Health Care Education/Training Program; ATTEND Student in an Organized Health Care Education/Training Program
DX: A41.89 Other specified sepsis (principal); U07.1 COVID-19; J12.82 Pneumonia due to coronavirus disease 2019; J96.01 Acute respiratory failure with hypoxia; C81.90 Hodgkin lymphoma, unspecified, unspecified site; R65.20 Severe sepsis without septic shock; E03.9 Hypothyroidism, unspecified; E87.6 Hypokalemia; I48.91 Unspecified atrial fibrillation; Z82.49 Family history of ischemic heart disease and other diseases of the circulatory system; Z85.72 Personal history of non-Hodgkin lymphomas; Z90.710 Acquired absence of both cervix and uterus; E83.42 Hypomagnesemia; Z88.0 Allergy status to penicillin; Z88.2 Allergy status to sulfonamides; Z88.8 Allergy status to other drugs, medicaments and biological substances
CPT/HCPCS: 36415; 71045; 71275; 80048; 80053; 80069; 81001; 82553; 83605; 83690; 83735; 83880; 84100; 84484; 85025; 87040; 87428; 93005; 94618; 96361; 96365; 96366; 96375; G0238; J1100; J1644; J1956; J3475; J3480; J3490; J7030; Q9967; 99291-25; G0378; Q0163; Q0169

== ENCOUNTER → 2021-11-17 | Outpatient (CLI) | payer BC ==
[2021-10-25 14:26] VITALS: BP 102/52
[~2021-11-17] MED LIST changes: +PRED20TA PO
--- NOTE | 2021-11-17 16:52 | KCIC ---
PA and lateral chest. HISTORY: Chronic bronchitis, Covid one month ago, short of air, PA and lateral views the chest were compared with a study from October 17. There is been a moderate i mprovement in the bilateral infiltrates since the prior study. Heart is normal in size. No new infilt rates are noted. There is no effusion. IMPRESSION: 1. Interval improvement with slight residual infiltrates. Electronically signed by: Osmin Hurd MD (11/17/2021 4:49 PM) [facility]
== END ==
LOC: KCIC 13:19
PROVIDERS: ATTEND Family Medicine
DX: J42 Unspecified chronic bronchitis (principal); R91.8 Other nonspecific abnormal finding of lung field
CPT/HCPCS: 71046

== ENCOUNTER 2022-01-12 10:48 | Inpatient (IN) | payer BC ==
[~2022-01-12] VITALS: Ht 175.3 cm; Wt 94.3 kg
[2022-01-12] MEDS ORDERED: IV RINGERS,LACTATED 1000ML 1,000 ML IV ONE (11:45)
[2022-01-12] MEDS ORDERED: BENZONATATE 100 MG CAPSULE. PO ONE (11:45)
[2022-01-12] MEDS ORDERED: ONDANSETRON PF 4 MG/2 ML VIAL. IVP ONE (11:45)
[2022-01-12 11:51] LABS: BASO % 0 % (0-3); EOS # 0.1 x10^3/uL (0.0-0.7); EOS % 1 % (0-3); HEMATOCRIT 36.1 % (36.0-47.0); HEMOGLOBIN 12.2 g/dL (12.0-15.5); LYMPH # 0.7 x10^3/uL (1.0-4.8); LYMPH % 12 % (24-48); MEAN CORPUSCULAR HEMOGLOBIN 27 pg (25-35); MEAN CORPUSCULAR HGB CONC 34 g/dL (31-37); MEAN CORPUSCULAR VOLUME 81 fL (79-100); MONO # 0.5 x10^3/uL (0.0-1.1); MONO % 8 % (0-9); NEUT # 4.5 x10^3/uL (1.8-7.7); NEUT % 78 % (31-73); PLATELET COUNT 165 x10^3/uL (140-400); RED BLOOD COUNT 4.47 x10^6/uL (3.50-5.40); WHITE BLOOD COUNT 5.8 x10^3/uL (4.0-11.0)
[2022-01-12 11:58] LABS: CALCIUM 8.7 mg/dL (8.5-10.1); CREATININE 0.9 mg/dL (0.6-1.0); GFR 63.7; POTASSIUM 3.3 mmol/L (3.5-5.1)
[2022-01-12 12:03] LABS: ALBUMIN/GLOBULIN RATIO 0.8 (1.0-1.7); MAGNESIUM 1.7 mg/dL (1.8-2.4); TOTAL BILIRUBIN 0.9 mg/dL (0.2-1.0); TOTAL PROTEIN 6.7 g/dL (6.4-8.2)
--- NOTE | 2022-01-12 12:05 | RAD ---
XR CHEST 1V 01/12/2022 11:39 AM INDICATION: Cough, fever COMPARISON: None available TECHNIQUE: Portable frontal view of the chest is provided. FINDINGS: The cardiomediastinal silhouette is within normal limits. There is increased interstitial prominence predominantly at the left lung base. There are no significant pleural effusions. There is no pulmonary vascular congestion. No pneumothora x. No suspicious osseous abnormality. IMPRESSION: Increased interstitial airspace disease as may be seen with developing interstitial pneumonitis of in fectious/inflammatory etiology. Electronically signed by: Toshia Bahena MD (01/12/2022 12:03 PM) [id number]
[2022-01-12 12:37] LABS: INFLUENZA A PATIENT NEGATIVE (NEGATIVE); INFLUENZA B PATIENT NEGATIVE (NEGATIVE)
--- NOTE | 2022-01-12 13:00 | PHYS DOC ---
Past Medical History Past Medical History: A-Fib, Cancer, Glaucoma, Hypothyroid Additional Past Medical Histor: THYROID, COVID 09/2021 (СЕРГЕЙ POWERS) Additional Past Surgical Histo: SINUS SURGERY ,R FOOT, L WRIST, port insertion, bone marrow biopsy (СЕРГЕЙ POWERS) Smoking Status: Never Smoker Alcohol Use: None Drug Use: None (СЕРГЕЙ POWERS) General Adult EDM: Chief Complaint: COUGH HPI: HPI: Patient is a 61 year old female who presents with cough for 1 week and fever since yesterday. Patient was diagnosed with COVID-19 pneumonia in September of this year. She was hospitalized and then placed on at home O2. This past Mo nday, 4 days ago, she was directed to discontinue supplemental oxygen. She noticed at home her oxygen saturation was 87% while walking to the bedroom. Patient called her primary care provider today asking for an appointment, but they instructed that she should probably visit the ER for further evaluation. She states her fever has broken with Tylenol, but returns after a few hours. 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 Patient denies sputum production, generalized weakness, chest pain, palpitations, edema. (СЕРГЕЙ POWERS) Review of Systems: Review of Systems: Constitutional: See HPI Eyes: Denies change in visual acuity, visual field deficits or discharge HENT: Denies ear pain, nasal congestion or sore throat Respiratory: See HPI Cardiovascular: See HPI GI: Denies abdominal pain, nausea, vomiting, bloody stools or diarrhea : Denies dysuria or hematuria Musculoskeletal: Denies back pain or joint pain Integument: Denies rash or other skin lesion Neurologic: Denies headache, focal weakness or sensory changes (СЕРГЕЙ POWERS) Heart Score: C/O Chest Pain: No (СЕРГЕЙ POWERS) Current Medications: Current Medications Medications (Trade) Dose Ordered Sig/Angeline Start Time Stop Time Status Last Admin Dose Admin Benzonatate (Tessalon Perle) 100 mg 1X ONCE 01/12/22 11:45 01/12/22 11:46 DC 01/12/22 12:00 100 MG Ondansetron HCl (Zofran) 4 mg 1X ONCE 01/12/22 11:45 01/12/22 11:46 DC 01/12/22 12:01 4 MG Ringer's Solution 1,000 ml @ 1,000 mls/hr 1X ONCE 01/12/22 11:45 01/12/22 12:44 DC 01/12/22 12:01 1,000 MLS/HR (СЕРГЕЙ POWERS) Allergies: Allergies: Allergies Coded Allergies Type Severity Reaction Last Updated Verified Penicillins Allergy Severe DIFFICULTY BREATHING 01/12/22 Yes Sulfa (Sulfonamide Antibiotics) Allergy Intermediate 01/12/22 Yes hydrocodone Allergy Intermediate 01/12/22 Yes oxycodone Allergy Intermediate Itching 01/12/22 Yes prednisone Allergy Intermediate 01/12/22 Yes tizanidine Allergy Intermediate 01/12/22 Yes (СЕРГЕЙ POWERS) Physical Exam: PE: Constitutional: Well developed, well nourished, no acute distress, non-toxic appearance. HENT: Normocephalic, atraumatic, bilateral external ears normal, oropharynx coated, no oral exudates, nose normal. Eyes: EOMI, conjunctiva normal, no discharge. Neck: Normal range of motion, no stridor. Cardiovascular: Regular rate and rhythm. No apparent murmurs, rubs or gallops. Lungs & Thorax: Full thoracic expansion, no increased work of breathing, breath sounds decreased in bilateral bases. Skin: Warm, dry, no erythema, no rash. Extremities: No cyanosis, no clubbing, ROM intact, no edema. Neurologic: Alert and oriented x4, normal motor function, normal sensory function, no focal deficits noted. (СЕРГЕЙ POWERS) Current Patient Data: Labs: Laboratory Tests Test 01/12/22 11:34 01/12/22 12:08 White Blood Count 5.8 x10^3/uL (4.0-11.0) Red Blood Count 4.47 x10^6/uL (3.50-5.40) Hemoglobin 12.2 g/dL (12.0-15.5) Hematocrit 36.1 % (36.0-47.0) Mean Corpuscular Volume 81 fL (79-100) Mean Corpuscular Hemoglobin 27 pg (25-35) Mean Corpuscular Hemoglobin Concent 34 g/dL (31-37) Red Cell Distribution Width 15.0 % (11.5-14.5) H Platelet Count 165 x10^3/uL (140-400) Neutrophils (%) (Auto) 78 % (31-73) H Lymphocytes (%) (Auto) 12 % (24-48) L Monocytes (%) (Auto) 8 % (0-9) Eosinophils (%) (Auto) 1 % (0-3) Basophils (%) (Auto) 0 % (0-3) Neutrophils # (Auto) 4.5 x10^3/uL (1.8-7.7) Lymphocytes # (Auto) 0.7 x10^3/uL (1.0-4.8) L Monocytes # (Auto) 0.5 x10^3/uL (0.0-1.1) Eosinophils # (Auto) 0.1 x10^3/uL (0.0-0.7) Basophils # (Auto) 0.0 x10^3/uL (0.0-0.2) Sodium Level 139 mmol/L (136-145) Potassium Level 3.3 mmol/L (3.5-5.1) L Chloride Level 101 mmol/L (98-107) Carbon Dioxide Level 28 mmol/L (21-32) Anion Gap 10 (6-14) Blood Urea Nitrogen 11 mg/dL (7-20) Creatinine 0.9 mg/dL (0.6-1.0) Estimated GFR (Cockcroft-Gault) 63.7 BUN/Creatinine Ratio 12 (6-20) Glucose Level 121 mg/dL (70-99) H Calcium Level 8.7 mg/dL (8.5-10.1) Magnesium Level 1.7 mg/dL (1.8-2.4) L Total Bilirubin 0.9 mg/dL (0.2-1.0) Aspartate Amino Transferase (AST) 47 U/L (15-37) H Alanine Aminotransferase (ALT) 52 U/L (14-59) Alkaline Phosphatase 280 U/L (46-116) H Total Protein 6.7 g/dL (6.4-8.2) Albumin 3.0 g/dL (3.4-5.0) L Albumin/Globulin Ratio 0.8 (1.0-1.7) L Influenza Type A Antigen Negative (NEGATIVE) Influenza Type B Antigen Negative (NEGATIVE) SARS-CoV-2 Antigen (Rapid) Negative (NEGATIVE) Laboratory Tests 01/12/22 11:34 Laboratory Tests 01/12/22 11:34 Vital Signs: Vital Signs Date Time Temp Pulse Resp B/P (MAP) Pulse Ox O2 Delivery O2 Flow Rate FiO2 01/12/22 17:19 Nasal Cannula 2.0 01/12/22 14:41 98 18 158/68 (98) 94 Nasal Cannula 2.0 01/12/22 14:11 98 18 156/73 (100) 94 Nasal Cannula 2.0 01/12/22 13:41 97 18 157/77 (103) 94 Nasal Cannula 2.0 01/12/22 13:11 91 18 160/77 (104) 94 Nasal Cannula 2.0 01/12/22 12:41 91 18 150/73 (98) 94 Nasal Cannula 2.0 01/12/22 12:11 91 18 144/71 (95) 89 Room Air 01/12/22 11:41 92 18 148/65 (92) 92 Room Air 01/12/22 11:11 99 18 159/74 (102) 91 Room Air 01/12/22 11:06 100.0 102 22 158/73 (101) 91 100.0 (СЕРГЕЙ POWERS) EKG: EKG: EKG Interpreted by Dr. Aguilar at 1419: Regular rate and rhythm 95 bpm with no ectopic beats. QT 370 ms/QTc 468 ms. No STEMI. (СЕРГЕЙ POWERS) Radiology/Procedures: Radiology/Procedures: PROCEDURE: PORTABLE CHEST 1V XR CHEST 1V 01/12/2022 11:39 AM INDICATION: Cough, fever COMPARISON: None available TECHNIQUE: Portable frontal view of the chest is provided. FINDINGS: The cardiomediastinal silhouette is within normal limits. There is increased interstitial prominence predominantly at the left lung base. There are no significant pleural effusions. There is no pulmonary vascular congestion. No pneumothorax. No suspicious osseous abnormality. IMPRESSION: Increased interstitial airspace disease as may be seen with developing interst itial pneumonitis of infectious/inflammatory etiology. Electronically signed by: Toshia Bahena MD (01/12/2022 12:03 PM) [id number] (СЕРГЕЙ POWERS) Course & Med Decision Making: Course & Med Decision Making Pertinent Labs and Imaging studies reviewed. (See chart for details) (СЕРГЕЙ POWERS) Dragon Disclaimer: Dragon Disclaimer: This chart was dictated in whole or in part using Voice Recognition software in a busy, high-work load, and often noisy Emergency Department environment. It may contain unintended and wholly unrecognized errors or omissions. (СЕРГЕЙ POWERS) Departure Departure Impression: Primary Impression: Acute respiratory failure with hypoxia Additional Impression: Pneumonitis, interstitial Disposition: ADMITTED INPATIENT Admitting Physician: ANAND Almendarez) (СЕРГЕЙ POWERS) Condition: GUARDED Referrals: ISRAEL QUIÑONES MD (PCP) Scripts Doxycycline Hyclate (DOXYCYCLINE HYCLATE) 100 Mg Capsule 1 CAP PO BID for ., #14 CAP Prov: CASTLE,NIAL K III DO 01/16/22 Methylprednisolone (MEDROL) 4 Mg Tab.ds.pk 1 PKG PO UD for ., #1 PKG Prov: CASTLE,NIAL K III DO 01/16/22 Attending Signature Attending Signature I have reviewed the PA/FOUNTAIN SUPERVISOR's note and plan of care. I was available for consultation as needed during the patient's visit in the emergency department. I agree with the clinical impression, plan, and disposition. (SILVIO AGUILAR DO) СЕРГЕЙ POWERS Jan 12, 2022 13:00 SILVIO AGUILAR DO January 16, 2022 23:33
[2022-01-12 15:20] VITALS: BP 132/67
[2022-01-12] MEDS ORDERED: POTA20TA4 PO (17:43)
[2022-01-12] MEDS ORDERED: CALCIUM CARBONATE 500 MG TAB.CHEW PO PRN (19:00)
[2022-01-12] MEDS ORDERED: ZOLPIDEM 5 MG TABLET. PO PRN (19:00)
[2022-01-12] MEDS ORDERED: IBUPROFEN 400 MG TABLET. PO PRN (19:00)
[2022-01-12] MEDS ORDERED: ONDANSETRON PF 4 MG/2 ML VIAL. IVP PRN (19:00)
[2022-01-12] MEDS ORDERED: MAG HYDROX/ALUMINUM HYD/SIMETH 30 ML ORAL.SUSP PO PRN (19:00)
--- NOTE | 2022-01-12 19:03 | PDOC1 ---
History and Physical Date of Admission Date of Admission DATE: 01/12/22 TIME: 18:55 Identification/Chief Complaint Chief Complaint Cough Source Source: Patient History of Present Illness History of Present Illness Patient is a 61-year-old female with past medical history A. fib, glaucoma, non- Hodgkin's lymphoma, who presents to the ED with complaints of cough for the past week and a half. She also reports associated fever and posttussive emesis at home. States that T-max today was 103 F. She reports previous COVID-19 diagnosis, admitted to this facility back in September 2021. At that time she was discharged home with home oxygen. Patient states she recently weaned herself off home oxygen, but still has several tanks available at home. In the ED she was reportedly hypoxic on room air after these coughing spells, and placed on 2 L nasal cannula. Chest x-ray showed increased interstitial airspace disease as may be seen with developing interstitial pneumonitis of infectious/inflammatory etiology. She will be admitted for further management. Past Medical History Cardiovascular: AFIB, HTN Pulmonary: Pneumonia CENTRAL NERVOUS SYSTEM: Other GI: Other Heme/Onc: Other Hepatobiliary: No pertinent hx Psych: Anxiety, Depression Musculoskeletal: Osteoarthritis Infectious disease: No pertinent hx Renal/: No pertinent hx Endocrine: Hypothyroidism Past Surgical History Past Surgical History: Hysterectomy Family History Family History: Cancer, Hypertension Social History Smoke: No ALCOHOL: none Drugs: None Current Problem List Problem List Problems Medical Problems: (1) Acute respiratory failure with hypoxia Status: Acute (2) Pneumonitis, interstitial Status: Acute Current Medications Current Medications Current Medications Ringer's Solution 1,000 ml @ 1,000 mls/hr 1X ONCE IV Last administered on 01/12/22at 12:01; Start 01/12/22 at 11:45; Stop 01/12/22 at 12:44; Status DC Benzonatate (Tessalon Perle) 100 mg 1X ONCE PO Last administered on 01/12/22at 12:00; Start 01/12/22 at 11:45; Stop 01/12/22 at 11:46; Status DC Ondansetron HCl (Zofran) 4 mg 1X ONCE IVP Last administered on 01/12/22at 12:01; Start 01/12/22 at 11:45; Stop 01/12/22 at 11:46; Status DC Active Scripts Active Reported Potassium Chloride (Potassium Chloride) 20 Meq Tablet.er 40 Meq PO DAILY Probiotic (Lactobacillus Acidophilus) 1 Each Capsule 1 Cap PO DAILY 10 Days [vitamin D] 125 Mcg PO DAILY Vitamin C (Ascorbic Acid) 500 Mg Capsule.er 1 Cap PO DAILY PRN 30 Days Ferrous Sulfate 325 Mg Tablet 1 Tab PO DAILY Synthroid (Levothyroxine Sodium) 75 Mcg Tablet 1 Tab PO DAILY Metoprolol Tartrate 25 Mg Tablet 1 Tab PO BID Flecainide Acetate 50 Mg Tablet 50 Mg PO BID Biotin 10,000 Mcg Capsule 10,000 Mcg PO DAILY Multivitamins (Multivitamin) 1 Each Tablet 1 Each PO DAILY Cymbalta (Duloxetine Hcl) 30 Mg Capsule.dr 1 Cap PO DAILY Aspirin 81 Mg Tab.chew 1 Tab PO DAILY Latanoprost 2.5 Ml Drops 1 Drop EACHEYE QHS Allergies Allergies: Coded Allergies: Penicillins (Verified Allergy, Severe, DIFFICULTY BREATHING, 01/12/22) TOLERATES CEFEPIME Sulfa (Sulfonamide Antibiotics) (Verified Allergy, Intermediate, 01/12/22) hydrocodone (Verified Allergy, Intermediate, 01/12/22) oxycodone (Verified Allergy, Intermediate, Itching, 01/12/22) prednisone (Verified Allergy, Intermediate, 01/12/22) HARD TO BREATHE tizanidine (Verified Allergy, Intermediate, 01/12/22) ROS Review of System GENERAL: Fever. No history of weight change, weakness. SKIN: No bruising, hair changes or rashes. EYES: No blurred, double or loss of vision. NOSE AND THROAT: No history of nosebleeds, hoarseness or sore throat. HEART: Denies chest pain, denies palpitations. LUNGS: Coughing, shortness of breath. Denies hemoptysis or wheezing. GASTROINTESTINAL: Posttussive emesis. Denies nausea or abdominal pain. GENITOURINARY: Denies dysuria, frequency, urgency, hematuria. NEUROLOGIC: Denies history of numbness, tingling, tremor or weakness. PSYCHIATRIC: Denies anxiety, denies depression. ENDOCRINE: No history of heat or cold intolerance, polyuria or polydipsia. EXTREMITIES: Denies muscle weakness, joint pain, pain on walking or stiffness. Physical Exam Physical Exam General: Alert, Oriented X3, Cooperative, No acute distress HEENT: PERRLA, EOMI Lungs: Faint bibasilar crackles, coughing on exam Heart: RRR, no murmurs Cardiovascular: S1, S2 Abdomen: Normal bowel sounds, Soft, No tenderness Extremities: No clubbing, No cyanosis Skin: No rashes, No significant lesion Neuro: Normal speech, Normal tone, Sensation intact Psych/Mental Status: Mental status NL, Mood NL Vitals Vitals Vital Signs Date Time Temp Pulse Resp B/P (MAP) Pulse Ox O2 Delivery O2 Flow Rate FiO2 01/12/22 17:19 Nasal Cannula 2.0 01/12/22 14:41 98 18 158/68 (98) 94 01/12/22 11:06 100.0 100.0 Labs Labs Laboratory Tests Test 01/12/22 11:34 01/12/22 12:08 White Blood Count 5.8 x10^3/uL (4.0-11.0) Red Blood Count 4.47 x10^6/uL (3.50-5.40) Hemoglobin 12.2 g/dL (12.0-15.5) Hematocrit 36.1 % (36.0-47.0) Mean Corpuscular Volume 81 fL (79-100) Mean Corpuscular Hemoglobin 27 pg (25-35) Mean Corpuscular Hemoglobin Concent 34 g/dL (31-37) Red Cell Distribution Width 15.0 % (11.5-14.5) Platelet Count 165 x10^3/uL (140-400) Neutrophils (%) (Auto) 78 % (31-73) Lymphocytes (%) (Auto) 12 % (24-48) Monocytes (%) (Auto) 8 % (0-9) Eosinophils (%) (Auto) 1 % (0-3) Basophils (%) (Auto) 0 % (0-3) Neutrophils # (Auto) 4.5 x10^3/uL (1.8-7.7) Lymphocytes # (Auto) 0.7 x10^3/uL (1.0-4.8) Monocytes # (Auto) 0.5 x10^3/uL (0.0-1.1) Eosinophils # (Auto) 0.1 x10^3/uL (0.0-0.7) Basophils # (Auto) 0.0 x10^3/uL (0.0-0.2) Sodium Level 139 mmol/L (136-145) Potassium Level 3.3 mmol/L (3.5-5.1) Chloride Level 101 mmol/L (98-107) Carbon Dioxide Level 28 mmol/L (21-32) Anion Gap 10 (6-14) Blood Urea Nitrogen 11 mg/dL (7-20) Creatinine 0.9 mg/dL (0.6-1.0) Estimated GFR (Cockcroft-Gault) 63.7 BUN/Creatinine Ratio 12 (6-20) Glucose Level 121 mg/dL (70-99) Calcium Level 8.7 mg/dL (8.5-10.1) Magnesium Level 1.7 mg/dL (1.8-2.4) Total Bilirubin 0.9 mg/dL (0.2-1.0) Aspartate Amino Transf (AST/SGOT) 47 U/L (15-37) Alanine Aminotransferase (ALT/SGPT) 52 U/L (14-59) Alkaline Phosphatase 280 U/L (46-116) Total Protein 6.7 g/dL (6.4-8.2) Albumin 3.0 g/dL (3.4-5.0) Albumin/Globulin Ratio 0.8 (1.0-1.7) Influenza Type A Antigen Negative (NEGATIVE) Influenza Type B Antigen Negative (NEGATIVE) SARS-CoV-2 Antigen (Rapid) Negative (NEGATIVE) Laboratory Tests Test 01/12/22 11:34 01/12/22 12:08 White Blood Count 5.8 x10^3/uL (4.0-11.0) Red Blood Count 4.47 x10^6/uL (3.50-5.40) Hemoglobin 12.2 g/dL (12.0-15.5) Hematocrit 36.1 % (36.0-47.0) Mean Corpuscular Volume 81 fL (79-100) Mean Corpuscular Hemoglobin 27 pg (25-35) Mean Corpuscular Hemoglobin Concent 34 g/dL (31-37) Red Cell Distribution Width 15.0 % (11.5-14.5) Platelet Count 165 x10^3/uL (140-400) Neutrophils (%) (Auto) 78 % (31-73) Lymphocytes (%) (Auto) 12 % (24-48) Monocytes (%) (Auto) 8 % (0-9) Eosinophils (%) (Auto) 1 % (0-3) Basophils (%) (Auto) 0 % (0-3) Neutrophils # (Auto) 4.5 x10^3/uL (1.8-7.7) Lymphocytes # (Auto) 0.7 x10^3/uL (1.0-4.8) Monocytes # (Auto) 0.5 x10^3/uL (0.0-1.1) Eosinophils # (Auto) 0.1 x10^3/uL (0.0-0.7) Basophils # (Auto) 0.0 x10^3/uL (0.0-0.2) Sodium Level 139 mmol/L (136-145) Potassium Level 3.3 mmol/L (3.5-5.1) Chloride Level 101 mmol/L (98-107) Carbon Dioxide Level 28 mmol/L (21-32) Anion Gap 10 (6-14) Blood Urea Nitrogen 11 mg/dL (7-20) Creatinine 0.9 mg/dL (0.6-1.0) Estimated GFR (Cockcroft-Gault) 63.7 BUN/Creatinine Ratio 12 (6-20) Glucose Level 121 mg/dL (70-99) Calcium Level 8.7 mg/dL (8.5-10.1) Magnesium Level 1.7 mg/dL (1.8-2.4) Total Bilirubin 0.9 mg/dL (0.2-1.0) Aspartate Amino Transf (AST/SGOT) 47 U/L (15-37) Alanine Aminotransferase (ALT/SGPT) 52 U/L (14-59) Alkaline Phosphatase 280 U/L (46-116) Total Protein 6.7 g/dL (6.4-8.2) Albumin 3.0 g/dL (3.4-5.0) Albumin/Globulin Ratio 0.8 (1.0-1.7) Influenza Type A Antigen Negative (NEGATIVE) Influenza Type B Antigen Negative (NEGATIVE) SARS-CoV-2 Antigen (Rapid) Negative (NEGATIVE) Images Images PATIENT: DEVAN LIU AACCOUNT: [id number] : 1960 LOCATION: ER AGE: 61 SEX: F EXAM STATUS: REG ER ORD. PHYSICIAN: СЕРГЕЙ POWERS REASON: cough, fever PROCEDURE: PORTABLE CHEST 1V XR CHEST 1V 01/12/2022 11:39 AM INDICATION: Cough, fever COMPARISON: None available TECHNIQUE: Portable frontal view of the chest is provided. FINDINGS: The cardiomediastinal silhouette is within normal limits. There is increased interstitial prominence predominantly at the left lung base. There are no significant pleural effusions. There is no pulmonary vascular congestion. No pneumothorax. No suspicious osseous abnormality. IMPRESSION: Increased interstitial airspace disease as may be seen with developing interstitial pneumonitis of infectious/inflammatory etiology. VTE Prophylaxis Ordered VTE Prophylaxis Devices: No VTE Pharmacological Prophylaxi: Yes Assessment/Plan Assessment/Plan Respiratory failure with hypoxia Acute bronchitis Febrile viral illness Posttussive emesis A. fib History non-Hodgkin's lymphoma Plan: Will treat patient symptomatically IV fluids Patient has home oxygen and can likely discharge tomorrow or the next day No need for antibiotics at this time Resume home medications FEN - Cardiac diet PPX - Lovenox FULL CODE/patient names her (Richard Dumont) is surrogate decision-maker Dispo - inpatient for above Justifications for Admission Other Justification KERRY MILLER MD Jan 12, 2022 19:03
[2022-01-12] MEDS: ENOXAPARIN 40 MG/0.4 ML SYRINGE. SQ SCH (19:41)
[2022-01-12] MEDS: ACETAMINOPHEN 325 MG TABLET. PO PRN (19:42)
[2022-01-12] MEDS: FLECAINIDE ACETATE 50 MG TABLET. PO SCH (19:42)
[2022-01-12] MEDS: METOPROLOL TART IMMED RELEASE 25 MG TABLET. PO SCH (19:43)
[2022-01-12] MEDS: BENZONATATE 100 MG CAPSULE. PO SCH (19:43)
[2022-01-12] MEDS: IV NORMAL SALINE 1000ML BAG 1,000 ML IV SCH (19:45)
[2022-01-12 19:51] VITALS: BP_SYST 103; BP_SYST 137; BP_SYST 175; BP_DIAS 71; BP_DIAS 82
[2022-01-12 23:25] VITALS: BP 111/56
[2022-01-13 01:06] LABS: BACTERIA,URINE FEW /HPF (0-FEW); HYALINE CASTS, URINE OCCASIONAL /HPF; RBC,URINE 0 /HPF (0-2); WBC,URINE OCC /HPF (0-4)
[2022-01-13 03:41] VITALS: BP 124/72
[2022-01-13] MEDS: SYNTHROID 75 MCG PO SCH (05:31)
[2022-01-13] MEDS: IV NORMAL SALINE 1000ML BAG 1,000 ML IV SCH ×3 (05:31→21:27)
[2022-01-13] MEDS: ACETAMINOPHEN 325 MG TABLET. PO PRN ×2 (05:31→14:00)
[2022-01-13 07:00] VITALS: BP 120/59
[2022-01-13] MEDS: FLECAINIDE ACETATE 50 MG TABLET. PO SCH ×2 (08:41→21:25)
[2022-01-13] MEDS: DULoxetine HCL 30 MG CAPSULE.DR PO SCH (08:41)
[2022-01-13] MEDS: BENZONATATE 100 MG CAPSULE. PO SCH ×3 (08:41→21:25)
[2022-01-13] MEDS: FERROUS SULFATE 325 MG TABLET. PO SCH (08:41)
[2022-01-13] MEDS: ASPIRIN CHEWABLE 81 MG TABLET. PO SCH (08:42)
[2022-01-13] MEDS: METOPROLOL TART IMMED RELEASE 25 MG TABLET. PO SCH ×2 (08:42→21:26)
[2022-01-13] MEDS ORDERED: POTASSIUM CHLORIDE 20 MEQ TABLET.ER. PO SCH (09:00)
[2022-01-13 11:00] VITALS: BP 153/69
[2022-01-13] MEDS ORDERED: guaiFENesin DM 200MG/20MG 10 ML SYRUP PO PRN (12:00)
--- NOTE | 2022-01-13 12:12 | PDOC ---
[employer] PROGRESS NOTE Date of Service DOS: DATE: 01/13/22 TIME: 12:04 Chief Complaint Chief Complaint Acute hypoxic respiratory failure secondary to COVID-19 pneumonia with possible superimposed bacterial pneumonia History non-Hodgkin's lymphoma Hypothyroid Glaucoma A. fib - sinus currently Hypokalemia Hypomagnesemia FEN -cardiac diet PPX - Lovenox FULL CODE Dispo - inpatient History of Present Illness History of Present Illness Ms Tenorio 61 yo female with a history of metastatic non-Hodgkin's lymphoma, afib presents to the ER for cough and fever the past week and a half. She also reports associated fever and post-tussive emesis at home. States that T-max 01/12/2022 was 103 F. She recently weaned herself off home oxygen, but still has several tanks available at home. In the ED she was reportedly hypoxic on room air after these coughing spells, and placed on 2 L nasal cannula. Chest x-ray s howed increased interstitial airspace disease as may be seen with developing interstitial pneumonitis of infectious/inflammatory etiology. Admitted for further management. Patient states that she was diagnosed with Covid on September 20, 2021 and was eventually hospitalized and treated for discharge 10/25/2021. 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 She works for [employer]'s pretty good about wearing her mask. 01/13: Her repeat PCR is positive for COVID 19. Still hypoxic with annoying cough. She also complains of a sore spot on the posterior scalp. On examination there is a nodule that is very subcutaneous. Vitals/I&O Vitals/I&O: Vital Signs Date Time Temp Pulse Resp B/P (MAP) Pulse Ox O2 Delivery O2 Flow Rate FiO2 01/13/22 08:42 90 124/72 01/13/22 08:00 Nasal Cannula 2.0 01/13/22 07:00 98.9 18 92 98.9 I & O 01/12/22 01/12/22 01/13/22 15:00 23:00 07:00 Intake Total 1000 ml 240 ml 350 ml Output Total 100 ml Balance 1000 ml 240 ml 250 ml Physical Exam General: Alert, Oriented X3, Cooperative Heart: Regular rate, Normal S1, Normal S2 Lungs: Crackles Abdomen: Normal bowel sounds, Soft Extremities: No clubbing, No cyanosis Skin: No rashes, No breakdown Labs Labs: Laboratory Tests Test 01/12/22 12:08 01/12/22 22:35 Coronavirus (COVID-19)(PCR) Positive (NOT DETECTD) Influenza Type A Antigen Negative (NEGATIVE) Influenza Type B Antigen Negative (NEGATIVE) SARS-CoV-2 Antigen (Rapid) Negative (NEGATIVE) Urine Collection Type Unknown Urine Color (Auto) Yellow Urine Turbidity Clear Urine pH (Auto) 7.0 (<5.0-8.0) Urine Specific [place] 1.025 (1.000-1.030) Urine Protein (Auto) 30 mg/dL (Negative) Urine Glucose (Auto)(UA) Negative mg/dL (Negative) Urine Ketones (Auto) 10 mg/dL (Negative) Urine Blood (Auto) Negative (Negative) Urine Nitrite Negative (Negative) Urine Bilirubin (Auto) Negative (Negative) Urine Urobilinogen (Auto) 6 mg/dL (Normal) Urine Leukocyte Esterase (Auto) Negative (Negative) Urine RBC 0 /HPF (0-2) Urine WBC Occ /HPF (0-4) Urine Squamous Epithelial Cells Mod /LPF Urine Bacteria Few /HPF (0-FEW) Urine Hyaline Casts Occasional /HPF Urine Mucus Marked /LPF Assessment and Plan Assessmemt and Plan Problems Medical Problems: (1) Acute respiratory failure with hypoxia Status: Acute (2) Pneumonitis, interstitial Status: Acute Comment Review of Relevant I have reviewed the following items kike (where applicable) has been applied. Medications: Current Medications Medications (Trade) Dose Ordered Sig/Angeline Route PRN Reason Start Time Stop Time Status Last Admin Dose Admin Benzonatate (Tessalon Perle) 100 mg [id number] PO 01/12/22 21:00 01/13/22 08:41 Acetaminophen (Tylenol) 650 mg PRN Q6HRS PRN PO Headaches, Temp > 101.5F 01/12/22 19:00 01/13/22 05:31 Enoxaparin Sodium (Lovenox 40mg Syringe) 40 mg Q24H SQ 01/12/22 21:00 01/12/22 19:41 Aspirin (Aspirin Chewable) 81 mg DAILY PO 01/13/22 09:00 01/13/22 08:42 Duloxetine HCl (Cymbalta) 30 mg DAILY PO 01/13/22 09:00 01/13/22 08:41 Ferrous Sulfate (Feosol) 325 mg DAILY PO 01/13/22 09:00 01/13/22 08:41 Flecainide Acetate (Tambocor) 50 mg BID PO 01/12/22 21:00 01/13/22 08:41 Non-Formulary Medication (Synthroid 75 Mcg Tablet) 1 ea DAILY06 PO 01/13/22 06:00 01/13/22 05:31 Metoprolol Tartrate (Lopressor) 25 mg BID PO 01/12/22 21:00 01/13/22 08:42 Potassium Chloride (Klor-Con) 40 meq DAILY PO 01/13/22 09:00 01/13/22 08:42 Sodium Chloride 1,000 ml @ 100 mls/hr Q10H IV 01/12/22 19:45 01/13/22 05:31 Justifications for Admission Other Justification HAO DIGGS MD Jan 13, 2022 12:12
[2022-01-13] MEDS: THIAMINE 100 MG TABLET. PO SCH (12:23)
[2022-01-13] MEDS: DEXAMETHASONE SOD PHOS 4 MG/ML VIAL IVP SCH (12:23)
[2022-01-13] MEDS: ZINC SULFATE 220 MG CAPSULE. PO SCH (12:23)
[2022-01-13] MEDS: ASCORBIC ACID 500 MG TABLET PO SCH (12:23)
[2022-01-13] MEDS: DOXYCYCLINE HYCLATE 100 MG in IV DEXTROSE 5% 100ML 100 ML IV SCH ×2 (12:24→21:25)
[2022-01-13] MEDS: POTASSIUM BICARB 20 MEQ EFFERVESCENT TABLET. PO SCH (12:25)
[2022-01-13] MEDS ORDERED: REMDESIVIR LOAD in IV NORMAL SALINE 250ML TV IV ONE (13:00)
[2022-01-13 15:00] VITALS: BP 133/64
[2022-01-13 19:00] VITALS: BP 139/55
[2022-01-13] MEDS: ENOXAPARIN 40 MG/0.4 ML SYRINGE. SQ SCH (21:26)
[2022-01-13 22:50] VITALS: BP 121/61
[2022-01-14 03:11] VITALS: BP 128/64
--- NOTE | 2022-01-14 03:24 | NUR ---
Patient assessed for elopement risk per elopement risk per elopement policy and procedure, patient not deemed a risk
[2022-01-14] MEDS: SYNTHROID 75 MCG PO SCH (06:18)
[2022-01-14 06:51] VITALS: BP 129/68
[2022-01-14 07:58] LABS: BASO % 0 % (0-3); EOS % 0 % (0-3); HEMATOCRIT 34.9 % (36.0-47.0); HEMOGLOBIN 11.5 g/dL (12.0-15.5); LYMPH # 0.8 x10^3/uL (1.0-4.8); LYMPH % 26 % (24-48); MEAN CORPUSCULAR HEMOGLOBIN 27 pg (25-35); MEAN CORPUSCULAR HGB CONC 33 g/dL (31-37); MEAN CORPUSCULAR VOLUME 82 fL (79-100); MONO # 0.3 x10^3/uL (0.0-1.1); MONO % 9 % (0-9); NEUT # 1.9 x10^3/uL (1.8-7.7); NEUT % 65 % (31-73); PLATELET COUNT 188 x10^3/uL (140-400); RED BLOOD COUNT 4.27 x10^6/uL (3.50-5.40); RED CELL DISTRIBUTION WIDTH 14.5 % (11.5-14.5); WHITE BLOOD COUNT 2.9 x10^3/uL (4.0-11.0)
[2022-01-14 08:17] LABS: ALBUMIN 2.4 g/dL (3.4-5.0); ALBUMIN/GLOBULIN RATIO 0.7 (1.0-1.7); CALCIUM 8.5 mg/dL (8.5-10.1); CREATININE 0.7 mg/dL (0.6-1.0); GFR 85.1; POTASSIUM 3.6 mmol/L (3.5-5.1); TOTAL BILIRUBIN 0.4 mg/dL (0.2-1.0)
[2022-01-14] MEDS: FLECAINIDE ACETATE 50 MG TABLET. PO SCH ×2 (08:40→20:27)
[2022-01-14] MEDS: BENZONATATE 100 MG CAPSULE. PO SCH ×3 (08:40→20:27)
[2022-01-14] MEDS: ASCORBIC ACID 500 MG TABLET PO SCH (08:40)
[2022-01-14] MEDS: DULoxetine HCL 30 MG CAPSULE.DR PO SCH (08:40)
[2022-01-14] MEDS: ZINC SULFATE 220 MG CAPSULE. PO SCH (08:40)
[2022-01-14] MEDS: METOPROLOL TART IMMED RELEASE 25 MG TABLET. PO SCH ×2 (08:40→20:28)
[2022-01-14] MEDS: POTASSIUM BICARB 20 MEQ EFFERVESCENT TABLET. PO SCH (08:40)
[2022-01-14] MEDS: FERROUS SULFATE 325 MG TABLET. PO SCH (08:40)
[2022-01-14] MEDS: THIAMINE 100 MG TABLET. PO SCH (08:40)
[2022-01-14] MEDS: ASPIRIN CHEWABLE 81 MG TABLET. PO SCH (08:40)
[2022-01-14] MEDS: DEXAMETHASONE SOD PHOS 4 MG/ML VIAL IVP SCH (08:40)
[2022-01-14] MEDS: DOXYCYCLINE HYCLATE 100 MG in IV DEXTROSE 5% 100ML 100 ML IV SCH ×2 (08:42→20:25)
[2022-01-14 11:30] VITALS: BP 119/54
[2022-01-14] MEDS: IV NORMAL SALINE 1000ML BAG 1,000 ML IV SCH ×2 (11:59→20:26)
[2022-01-14] MEDS: REMDESIVIR 100mg in NORMAL SALINE 250ML X 4 DAYS IV SCH (13:49)
--- NOTE | 2022-01-14 14:25 | PDOC ---
[employer] PROGRESS NOTE Date of Service DOS: DATE: 01/14/22 TIME: 14:19 Chief Complaint Chief Complaint Acute hypoxic respiratory failure secondary to COVID-19 pneumonia with possible superimposed bacterial pneumonia History non-Hodgkin's lymphoma Hypothyroid Glaucoma A. fib - sinus currently Hypokalemia Hypomagnesemia FEN -cardiac diet PPX - Lovenox FULL CODE Dispo - inpatient History of Present Illness History of Present Illness Ms Tenoroi 61 yo female with a history of metastatic non-Hodgkin's lymphoma, afib presents to the ER for cough and fever the past week and a half. She also reports associated fever and post-tussive emesis at home. States that T-max 01/12/2022 was 103 F. She recently weaned herself off home oxygen, but still has several tanks available at home. In the ED she was reportedly hypoxic on room air after these coughing spells, and placed on 2 L nasal cannula. Chest x-ray showed increased interstitial airspace disease as may be seen with developing interstitial pneumonitis of infectious/inflammatory etiology. Admitted for further management. Patient states that she was diagnosed with Covid on September 20, 2021 and was eventually hospitalized and treated for discharge 10/25/2021. 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 She works for [employer]'s pretty good about wearing her mask. 01/13: Her repeat PCR is positive for COVID 19. Still hypoxic with annoying cough. She also complains of a sore spot on the posterior scalp. On examination there is a nodule that is very subcutaneous. 01/14: Had a paroxysm of coughing yesterday evening and noted that when she closed her left eye she saw some white in the inferomedial quadrant. Upon awakening in the middle the night she noted a port graham-green rim around a black area in her inferior medial quadrant of her left eye only. Still with cough still requiring O2. On remdesivir therapy. She is asking if she could have an outpatient infusion of SotroviMab. This would be appropriate given she has mild COVID symptoms to prevent further hospitalization but I have advised her this be an outpatient infusion she can be discharged and treated with an outpatient i nfusion versus taking Paxlovid oral. Vitals/I&O Vitals/I&O: Vital Signs Date Time Temp Pulse Resp B/P (MAP) Pulse Ox O2 Delivery O2 Flow Rate FiO2 01/14/22 11:30 97.9 68 20 119/54 (75) 96 Nasal Cannula 2.0 97.9 I & O 01/13/22 01/13/22 01/14/22 15:00 23:00 07:00 Intake Total 400 ml 520 ml Balance 400 ml 520 ml Physical Exam General: Alert, Oriented X3, Cooperative Heart: Regular rate, Normal S1, Normal S2 Lungs: Crackles Abdomen: Normal bowel sounds, Soft Extremities: No clubbing, No cyanosis Skin: No rashes, No breakdown Labs Labs: Laboratory Tests Test 01/14/22 06:45 White Blood Count 2.9 x10^3/uL (4.0-11.0) Red Blood Count 4.27 x10^6/uL (3.50-5.40) Hemoglobin 11.5 g/dL (12.0-15.5) Hematocrit 34.9 % (36.0-47.0) Mean Corpuscular Volume 82 fL (79-100) Mean Corpuscular Hemoglobin 27 pg (25-35) Mean Corpuscular Hemoglobin Concent 33 g/dL (31-37) Red Cell Distribution Width 14.5 % (11.5-14.5) Platelet Count 188 x10^3/uL (140-400) Neutrophils (%) (Auto) 65 % (31-73) Lymphocytes (%) (Auto) 26 % (24-48) Monocytes (%) (Auto) 9 % (0-9) Eosinophils (%) (Auto) 0 % (0-3) Basophils (%) (Auto) 0 % (0-3) Neutrophils # (Auto) 1.9 x10^3/uL (1.8-7.7) Lymphocytes # (Auto) 0.8 x10^3/uL (1.0-4.8) Monocytes # (Auto) 0.3 x10^3/uL (0.0-1.1) Eosinophils # (Auto) 0.0 x10^3/uL (0.0-0.7) Basophils # (Auto) 0.0 x10^3/uL (0.0-0.2) Sodium Level 142 mmol/L (136-145) Potassium Level 3.6 mmol/L (3.5-5.1) Chloride Level 106 mmol/L (98-107) Carbon Dioxide Level 28 mmol/L (21-32) Anion Gap 8 (6-14) Blood Urea Nitrogen 10 mg/dL (7-20) Creatinine 0.7 mg/dL (0.6-1.0) Estimated GFR (Cockcroft-Gault) 85.1 BUN/Creatinine Ratio 14 (6-20) Glucose Level 106 mg/dL (70-99) Calcium Level 8.5 mg/dL (8.5-10.1) Total Bilirubin 0.4 mg/dL (0.2-1.0) Aspartate Amino Transf (AST/SGOT) 24 U/L (15-37) Alanine Aminotransferase (ALT/SGPT) 42 U/L (14-59) Alkaline Phosphatase 314 U/L (46-116) Total Protein 6.0 g/dL (6.4-8.2) Albumin 2.4 g/dL (3.4-5.0) Albumin/Globulin Ratio 0.7 (1.0-1.7) Assessment and Plan Assessmemt and Plan Problems Medical Problems: (1) Acute respiratory failure with hypoxia Status: Acute (2) Pneumonitis, interstitial Status: Acute Comment Review of Relevant I have reviewed the following items kike (where applicable) has been applied. Medications: Current Medications Medications (Trade) Dose Ordered Sig/Angeline Route PRN Reason Start Time Stop Time Status Last Admin Dose Admin Remdesivir 100 mg/ Sodium Chloride 230 ml @ 460 mls/hr Q24H IV 01/14/22 13:00 01/17/22 13:29 01/14/22 13:49 Justifications for Admission Other Justification HAO DIGGS MD January 14, 2022 14:25
[2022-01-14 15:15] VITALS: BP 142/76
[2022-01-14 19:30] VITALS: BP 133/74
[2022-01-14] MEDS: ENOXAPARIN 40 MG/0.4 ML SYRINGE. SQ SCH (20:28)
[2022-01-14 23:30] VITALS: BP 124/64
[2022-01-15 03:27] VITALS: BP 132/72
[2022-01-15] MEDS: SYNTHROID 75 MCG PO SCH (05:50)
[2022-01-15] MEDS: IV NORMAL SALINE 1000ML BAG 1,000 ML IV SCH ×2 (05:51→13:21)
--- NOTE | 2022-01-15 06:11 | EKG ---
[facility] [address] [place] [address] Test Date: 2022-01-12 Test Time: 13:51:57 Pat Name: DEVAN LIU Department: Room: Gender: F Coverer: : 1960 Requested By: СЕРГЕЙ POWERS Order Number: [id number] Reading MD: Measurements Intervals [place] Rate: 95 P: 0 HI: 118 QRS: -20 QRSD: 82 T: 46 QT: 370 QTc: 468 Interpretive Statements SINUS RHYTHM LEFTWARD AXIS OTHERWISE NORMAL ECG RI6.02 No previous ECG available for comparison
[2022-01-15 07:00] VITALS: BP 135/71
[2022-01-15] MEDS: ASPIRIN CHEWABLE 81 MG TABLET. PO SCH (08:55)
[2022-01-15] MEDS: POTASSIUM BICARB 20 MEQ EFFERVESCENT TABLET. PO SCH (08:55)
[2022-01-15] MEDS: THIAMINE 100 MG TABLET. PO SCH (08:55)
[2022-01-15] MEDS: METOPROLOL TART IMMED RELEASE 25 MG TABLET. PO SCH ×2 (08:56→20:57)
[2022-01-15] MEDS: DULoxetine HCL 30 MG CAPSULE.DR PO SCH (08:56)
[2022-01-15] MEDS: BENZONATATE 100 MG CAPSULE. PO SCH ×3 (08:56→20:56)
[2022-01-15] MEDS: FLECAINIDE ACETATE 50 MG TABLET. PO SCH ×2 (08:56→20:56)
[2022-01-15] MEDS: FERROUS SULFATE 325 MG TABLET. PO SCH (08:56)
[2022-01-15] MEDS: ZINC SULFATE 220 MG CAPSULE. PO SCH (08:56)
[2022-01-15] MEDS: ASCORBIC ACID 500 MG TABLET PO SCH (08:56)
[2022-01-15] MEDS: DEXAMETHASONE SOD PHOS 4 MG/ML VIAL IVP SCH (08:57)
[2022-01-15 08:58] LABS: BASO % 0 % (0-3); EOS % 0 % (0-3); HEMOGLOBIN 10.8 g/dL (12.0-15.5); LYMPH # 0.5 x10^3/uL (1.0-4.8); LYMPH % 20 % (24-48); MEAN CORPUSCULAR HEMOGLOBIN 28 pg (25-35); MEAN CORPUSCULAR HGB CONC 34 g/dL (31-37); MEAN CORPUSCULAR VOLUME 82 fL (79-100); MONO # 0.2 x10^3/uL (0.0-1.1); MONO % 8 % (0-9); NEUT # 1.8 x10^3/uL (1.8-7.7); NEUT % 71 % (31-73); PLATELET COUNT 159 x10^3/uL (140-400); RED BLOOD COUNT 3.91 x10^6/uL (3.50-5.40); RED CELL DISTRIBUTION WIDTH 14.6 % (11.5-14.5); WHITE BLOOD COUNT 2.5 x10^3/uL (4.0-11.0)
[2022-01-15] MEDS: DOXYCYCLINE HYCLATE 100 MG in IV DEXTROSE 5% 100ML 100 ML IV SCH ×2 (08:58→20:55)
[2022-01-15 09:18] LABS: ALBUMIN 2.4 g/dL (3.4-5.0); ALBUMIN/GLOBULIN RATIO 0.8 (1.0-1.7); CALCIUM 8.4 mg/dL (8.5-10.1); CREATININE 0.7 mg/dL (0.6-1.0); GFR 85.1; POTASSIUM 3.4 mmol/L (3.5-5.1); TOTAL BILIRUBIN 0.3 mg/dL (0.2-1.0); TOTAL PROTEIN 5.6 g/dL (6.4-8.2)
[2022-01-15 11:00] VITALS: BP 130/71
--- NOTE | 2022-01-15 11:20 | PDOC ---
[employer] PROGRESS NOTE Date of Service DOS: DATE: 01/15/22 TIME: 11:18 Chief Complaint Chief Complaint Acute hypoxic respiratory failure secondary to COVID-19 pneumonia with possible superimposed bacterial pneumonia History non-Hodgkin's lymphoma Hypothyroid Glaucoma A. fib - sinus currently Hypokalemia Hypomagnesemia FEN -cardiac diet PPX - Lovenox FULL CODE Dispo - inpatient History of Present Illness History of Present Illness 01/15/2022 Patient seen and examined Discussed with RN Discussed with case management Chart reviewed I called ophthalmology regarding her visual changes They explained that they cannot do anything at this time as she is being treated for Covid-19, but that we could have her follow-up with them in their office once she is discharged Ms Tenorio 61 yo female with a history of metastatic non-Hodgkin's lymphoma, afib presents to the ER for cough and fever the past week and a half. She also reports associated fever and post-tussive emesis at home. States that T-max 01/12/2022 was 103 F. She recently weaned herself off home oxygen, but still has several tanks available at home. In the ED she was reportedly hypoxic on room a ir after these coughing spells, and placed on 2 L nasal cannula. Chest x-ray showed increased interstitial airspace disease as may be seen with developing interstitial pneumonitis of infectious/inflammatory etiology. Admitted for further management. Patient states that she was diagnosed with Covid on September 20, 2021 and was eventually hospitalized and treated for discharge 10/25/2021. 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 She works for [employer]'s pretty good about wearing her mask. 01/13: Her repeat PCR is positive for COVID 19. Still hypoxic with annoying cough. She also complains of a sore spot on the posterior scalp. On examination there is a nodule that is very subcutaneous. 01/14: Had a paroxysm of coughing yesterday evening and noted that when she closed her left eye she saw some white in the inferomedial quadrant. Upon awakening in the middle the night she noted a [place]-green rim around a black area in her inferior medial quadrant of her left eye only. Still with cough still requiring O2. On remdesivir therapy. She is asking if she could have an outpatient infusion of SotroviMab. This would be appropriate given she has mild COVID symptoms to prevent further hospitalization but I have advised her this be an outpatient infusion she can be discharged and treated with an outpatient infusion versus taking Paxlovid oral. Vitals/I&O Vitals/I&O: Vital Signs Date Time Temp Pulse Resp B/P (MAP) Pulse Ox O2 Delivery O2 Flow Rate FiO2 01/15/22 08:56 73 135/71 01/15/22 08:00 Room Air 01/15/22 07:00 97.8 18 95 2.0 97.8 I & O 01/14/22 01/14/22 01/15/22 15:00 23:00 07:00 Intake Total 480 ml 620 ml 240 ml Balance 480 ml 620 ml 240 ml Physical Exam General: Alert, Oriented X3, Cooperative Heart: Regular rate, Normal S1, Normal S2 Lungs: Crackles Abdomen: Normal bowel sounds, Soft Extremities: No clubbing, No cyanosis Skin: No rashes, No breakdown Labs Labs: Laboratory Tests Test 01/15/22 08:30 White Blood Count 2.5 x10^3/uL (4.0-11.0) Red Blood Count 3.91 x10^6/uL (3.50-5.40) Hemoglobin 10.8 g/dL (12.0-15.5) Hematocrit 32.0 % (36.0-47.0) Mean Corpuscular Volume 82 fL (79-100) Mean Corpuscular Hemoglobin 28 pg (25-35) Mean Corpuscular Hemoglobin Concent 34 g/dL (31-37) Red Cell Distribution Width 14.6 % (11.5-14.5) Platelet Count 159 x10^3/uL (140-400) Neutrophils (%) (Auto) 71 % (31-73) Lymphocytes (%) (Auto) 20 % (24-48) Monocytes (%) (Auto) 8 % (0-9) Eosinophils (%) (Auto) 0 % (0-3) Basophils (%) (Auto) 0 % (0-3) Neutrophils # (Auto) 1.8 x10^3/uL (1.8-7.7) Lymphocytes # (Auto) 0.5 x10^3/uL (1.0-4.8) Monocytes # (Auto) 0.2 x10^3/uL (0.0-1.1) Eosinophils # (Auto) 0.0 x10^3/uL (0.0-0.7) Basophils # (Auto) 0.0 x10^3/uL (0.0-0.2) Sodium Level 145 mmol/L (136-145) Potassium Level 3.4 mmol/L (3.5-5.1) Chloride Level 107 mmol/L (98-107) Carbon Dioxide Level 30 mmol/L (21-32) Anion Gap 8 (6-14) Blood Urea Nitrogen 12 mg/dL (7-20) Creatinine 0.7 mg/dL (0.6-1.0) Estimated GFR (Cockcroft-Gault) 85.1 BUN/Creatinine Ratio 17 (6-20) Glucose Level 93 mg/dL (70-99) Calcium Level 8.4 mg/dL (8.5-10.1) Total Bilirubin 0.3 mg/dL (0.2-1.0) Aspartate Amino Transf (AST/SGOT) 17 U/L (15-37) Alanine Aminotransferase (ALT/SGPT) 33 U/L (14-59) Alkaline Phosphatase 253 U/L (46-116) Total Protein 5.6 g/dL (6.4-8.2) Albumin 2.4 g/dL (3.4-5.0) Albumin/Globulin Ratio 0.8 (1.0-1.7) Assessment and Plan Assessmemt and Plan Problems Medical Problems: (1) Acute respiratory failure with hypoxia Status: Acute (2) Pneumonitis, interstitial Status: Acute Mechanical fall Acute displaced left trimalleolar fracture History of hypertension Acute electrolyte derangement Hyponatremia Hyperkalemia Prerenal azotemia Influenza A Transaminitis Plan We are hoping to discharge tomorrow After discharge we will have her follow-up with ophthalmology For now continue the following; Remdesivir Fall precautions Ortho consult Continue IV fluids Trend electrolytes Strict I's/O and monitor urine output Defer to Ortho for DVT prophylaxis N.p.o. at midnight, cardiac diet CODE STATUS full Discussed with RN and SW Disposition inpatient management as above DPOA: Undesignated Comment Review of Relevant I have reviewed the following items kike (where applicable) has been applied. Medications: Current Medications Medications (Trade) Dose Ordered Sig/Angeline Route PRN Reason Start Time Stop Time Status Last Admin Dose Admin Remdesivir 100 mg/ Sodium Chloride 230 ml @ 460 mls/hr Q24H IV 01/14/22 13:00 01/17/22 13:29 01/14/22 13:49 Justifications for Admission Other Justification CINTHYA NOLAN III DO January 15, 2022 11:20
[2022-01-15] MEDS: REMDESIVIR 100mg in NORMAL SALINE 250ML X 4 DAYS IV SCH (13:00)
[2022-01-15 15:00] VITALS: BP 140/61
[2022-01-15 19:00] VITALS: BP 145/76
[2022-01-15] MEDS: ENOXAPARIN 40 MG/0.4 ML SYRINGE. SQ SCH (20:57)
[2022-01-15 23:04] VITALS: BP 146/75
--- NOTE | 2022-01-16 02:58 | NUR ---
Patient sleeping in a chair, she ambulated at approximately 2100, to the restroom, and when she got back in the chair, she did report some shortness of air, her posterior back had some discomfort, did not cough, monitoring.
[2022-01-16 03:00] VITALS: BP 144/72
[2022-01-16] MEDS: SYNTHROID 75 MCG PO SCH (06:35)
[2022-01-16] MEDS: IV NORMAL SALINE 1000ML BAG 1,000 ML IV SCH (06:35)
[2022-01-16 07:00] VITALS: BP 137/71
[2022-01-16 08:41] LABS: BASO % 0 % (0-3); EOS % 0 % (0-3); HEMATOCRIT 35.2 % (36.0-47.0); HEMOGLOBIN 11.5 g/dL (12.0-15.5); LYMPH # 0.7 x10^3/uL (1.0-4.8); LYMPH % 23 % (24-48); MEAN CORPUSCULAR HEMOGLOBIN 27 pg (25-35); MEAN CORPUSCULAR HGB CONC 33 g/dL (31-37); MEAN CORPUSCULAR VOLUME 82 fL (79-100); MONO # 0.3 x10^3/uL (0.0-1.1); MONO % 9 % (0-9); NEUT # 2.1 x10^3/uL (1.8-7.7); NEUT % 67 % (31-73); PLATELET COUNT 184 x10^3/uL (140-400); RED CELL DISTRIBUTION WIDTH 14.9 % (11.5-14.5); WHITE BLOOD COUNT 3.1 x10^3/uL (4.0-11.0)
[2022-01-16] MEDS: POTASSIUM BICARB 20 MEQ EFFERVESCENT TABLET. PO SCH (08:54)
[2022-01-16] MEDS: ZINC SULFATE 220 MG CAPSULE. PO SCH (08:54)
[2022-01-16] MEDS: FERROUS SULFATE 325 MG TABLET. PO SCH (08:55)
[2022-01-16] MEDS: BENZONATATE 100 MG CAPSULE. PO SCH ×2 (08:55→16:33)
[2022-01-16] MEDS: FLECAINIDE ACETATE 50 MG TABLET. PO SCH (08:55)
[2022-01-16] MEDS: DULoxetine HCL 30 MG CAPSULE.DR PO SCH (08:55)
[2022-01-16] MEDS: METOPROLOL TART IMMED RELEASE 25 MG TABLET. PO SCH (08:55)
[2022-01-16] MEDS: ASPIRIN CHEWABLE 81 MG TABLET. PO SCH (08:55)
[2022-01-16] MEDS: ASCORBIC ACID 500 MG TABLET PO SCH (08:55)
[2022-01-16] MEDS: DEXAMETHASONE SOD PHOS 4 MG/ML VIAL IVP SCH (08:56)
[2022-01-16] MEDS: DOXYCYCLINE HYCLATE 100 MG in IV DEXTROSE 5% 100ML 100 ML IV SCH (08:57)
[2022-01-16] MEDS: THIAMINE 100 MG TABLET. PO SCH (08:58)
[2022-01-16 09:03] LABS: ALBUMIN 2.7 g/dL (3.4-5.0); CALCIUM 8.1 mg/dL (8.5-10.1); CREATININE 0.7 mg/dL (0.6-1.0); GFR 85.1; POTASSIUM 3.1 mmol/L (3.5-5.1); TOTAL BILIRUBIN 0.5 mg/dL (0.2-1.0); TOTAL PROTEIN 5.3 g/dL (6.4-8.2)
[2022-01-16 09:05] LABS: % BANDS 2 % (0-9); % LYMPHS 21 % (24-48); % MONOS 9 % (0-10); % SEGS 68 % (35-66); PLT ESTIMATE ADEQUATE (ADEQUATE)
--- NOTE | 2022-01-16 10:15 | PDOC ---
[employer] [facility] PROGRESS NOTE Date of Service DOS: DATE: 01/16/22 TIME: 10:14 Chief Complaint Chief Complaint Acute hypoxic respiratory failure secondary to COVID-19 pneumonia with possible superimposed bacterial pneumonia History non-Hodgkin's lymphoma Hypothyroid Glaucoma A. 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 She also reports associated fever and post-tussive emesis at home. States that T-max 01/12/2022 was 103 F. She recently weaned herself off home oxygen, but still has several tanks available at home. In the ED she was reportedly hypoxic on room air after these coughing spells, and placed on 2 L nasal cannula. Chest x-ray showed increased interstitial airspace disease as may be seen with developing interstitial pneumonitis of infectious/inflammatory etiology. Admitted for further management. Patient states that she was diagnosed with Covid on September 20, 2021 and was eventually hospitalized and treated for discharge 10/25/2021. 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 She works for [employer]'s pretty good about wearing her mask. 01/13: Her repeat PCR is positive for COVID 19. Still hypoxic with annoying cough. She also complains of a sore spot on the posterior scalp. On examination there is a nodule that is very subcutaneous. 01/14: Had a paroxysm of coughing yesterday evening and noted that when she closed her left eye she saw some white in the inferomedial quadrant. Upon awakening in the middle the night she noted a [place]green rim around a black area in her inferior medial quadrant of her left eye only. Still with cough still requiring O2. On remdesivir therapy. She is asking if she could have an outpatient infusion of SotroviMab. This would be appropriate given she has mild COVID symptoms to prevent further hospitalization but I have advised her this be an outpatient infusion she can be discharged and treated with an outpatient infusion versus taking Paxlovid oral. Vitals/I&O Vitals/I&O: Vital Signs Date Time Temp Pulse Resp B/P (MAP) Pulse Ox O2 Delivery O2 Flow Rate FiO2 01/16/22 08:55 72 137/71 01/16/22 07:00 98.2 20 95 Room Air 98.2 01/15/22 15:00 2.0 I & O 0 01/15/22 01/15/22 01/16/22 15:00 23:00 07:00 Intake Total 360 ml 400 ml 500 ml Balance 360 ml 400 ml 500 ml Physical Exam General: Alert, Oriented X3, Cooperative Heart: Regular rate, Normal S1, Normal S2 Lungs: Crackles Abdomen: Normal bowel sounds, Soft Extremities: No clubbing, No cyanosis Skin: No rashes, No breakdown Labs Labs: Laboratory Tests Test 01/16/22 08:32 White Blood Count 3.1 x10^3/uL (4.0-11.0) Red Blood Count 4.30 x10^6/uL (3.50-5.40) Hemoglobin 11.5 g/dL (12.0-15.5) Hematocrit 35.2 % (36.0-47.0) Mean Corpuscular Volume 82 fL (79-100) Mean Corpuscular Hemoglobin 27 pg (25-35) Mean Corpuscular Hemoglobin Concent 33 g/dL (31-37) Red Cell Distribution Width 14.9 % (11.5-14.5) Platelet Count 184 x10^3/uL (140-400) Neutrophils (%) (Auto) 67 % (31-73) Lymphocytes (%) (Auto) 23 % (24-48) Monocytes (%) (Auto) 9 % (0-9) Eosinophils (%) (Auto) 0 % (0-3) Basophils (%) (Auto) 0 % (0-3) Neutrophils # (Auto) 2.1 x10^3/uL (1.8-7.7) Lymphocytes # (Auto) 0.7 x10^3/uL (1.0-4.8) Monocytes # (Auto) 0.3 x10^3/uL (0.0-1.1) Eosinophils # (Auto) 0.0 x10^3/uL (0.0-0.7) Basophils # (Auto) 0.0 x10^3/uL (0.0-0.2) Segmented Neutrophils % 68 % (35-66) Band Neutrophils % 2 % (0-9) Lymphocytes % 21 % (24-48) Monocytes % 9 % (0-10) Platelet Estimate Adequate (ADEQUATE) Sodium Level 146 mmol/L (136-145) Potassium Level 3.1 mmol/L (3.5-5.1) Chloride Level 108 mmol/L (98-107) Carbon Dioxide Level 29 mmol/L (21-32) Anion Gap 9 (6-14) Blood Urea Nitrogen 10 mg/dL (7-20) Creatinine 0.7 mg/dL (0.6-1.0) Estimated GFR (Cockcroft-Gault) 85.1 BUN/Creatinine Ratio 14 (6-20) Glucose Level 86 mg/dL (70-99) Calcium Level 8.1 mg/dL (8.5-10.1) Total Bilirubin 0.5 mg/dL (0.2-1.0) Aspartate Amino Transf (AST/SGOT) 19 U/L (15-37) Alanine Aminotransferase (ALT/SGPT) 36 U/L (14-59) Alkaline Phosphatase 242 U/L (46-116) Total Protein 5.3 g/dL (6.4-8.2) Albumin 2.7 g/dL (3.4-5.0) Albumin/Globulin Ratio 1.0 (1.0-1.7) Assessment and Plan Assessmemt and Plan Problems Medical Problems: (1) Acute respiratory failure with hypoxia Status: Acute (2) Pneumonitis, interstitial Status: Acute Discharge see dictation Comment Review of Relevant I have reviewed the following items kike (where applicable) has been applied. Justifications for Admission Other Justification CINTHYA NOLAN III DO January 16, 2022 10:15
[2022-01-16] MEDS ORDERED: METH4TAB2 PO (10:18)
[2022-01-16] MEDS ORDERED: DOXY100C3 PO (10:18)
[2022-01-16 11:00] VITALS: BP 138/72
[2022-01-16] MEDS: REMDESIVIR 100mg in NORMAL SALINE 250ML X 4 DAYS IV SCH (13:05)
--- NOTE | 2022-01-17 19:43 | DS ---
DATE OF DISCHARGE: 01/16/2022 ADMISSION DIAGNOSIS: COVID-19 respiratory failure. DISCHARGE DIAGNOSES: Resolving COVID-19 respiratory failure, resolving pneumonia, history of non-Hodgkin's lymphoma, hypothyroidism, glaucoma, AFib, hypokalemia and hypomagnesemia. CONSULTS: None. PROCEDURES: None. HOSPITAL COURSE: The patient is a pleasant, middle-aged female who presented with respiratory failure secondary to COVID-19. She was admitted. We gave her IV remdesivir, steroids, breathing treatments, oxygen, antibiotics. Yesterday, I saw and examined her. She was doing great. We discharged to home. DISPOSITION: Home. ACTIVITY: As tolerated. DIET: Low sodium. DISCHARGE MEDICATIONS: Please see the MRAD. Doxycycline 100 b.i.d., Medrol Dosepak, vitamin C, aspirin 81 a day, Biotin, Cymbalta 30 a day, iron, flecainide 50 b.i.d., probiotics, Xalatan eyedrops, Synthroid 75 a day, metoprolol 25 b.i.d., multiple vitamins and potassium 40 a day. Total time 33 minutes. RAMAKRISHNA/MAQRUEZ/BARBARA DR: RAMAKRISHNA/esme TID: [id number]
== END 2022-01-16 17:30 | disposition home or self-care (01) | DRG 177 ==
LOC: ER 10:48 → 2 NORTH 12:55
PROVIDERS: ADMIT Family Medicine; ATTEND Family Medicine
PROC: XW033E5 Introduction of Remdesivir Anti-infective into Peripheral Vein, Percutaneous Approach, New Technology Group 5 (ICD-10-PCS; principal; 2022-01-14)
DX: U07.1 COVID-19 (principal); J96.01 Acute respiratory failure with hypoxia; J10.08 Influenza due to other identified influenza virus with other specified pneumonia; J12.82 Pneumonia due to coronavirus disease 2019; E87.1 Hypo-osmolality and hyponatremia; I48.91 Unspecified atrial fibrillation; E03.9 Hypothyroidism, unspecified; E83.42 Hypomagnesemia; E87.5 Hyperkalemia; E87.6 Hypokalemia; H40.9 Unspecified glaucoma; I10 Essential (primary) hypertension; J20.8 Acute bronchitis due to other specified organisms; S82.852A Displaced trimalleolar fracture of left lower leg, initial encounter for closed fracture; Z82.49 Family history of ischemic heart disease and other diseases of the circulatory system; Z85.72 Personal history of non-Hodgkin lymphomas; Z90.710 Acquired absence of both cervix and uterus; F32.A Depression, unspecified; F41.9 Anxiety disorder, unspecified; M19.90 Unspecified osteoarthritis, unspecified site; Z88.0 Allergy status to penicillin; Z88.2 Allergy status to sulfonamides; Z88.8 Allergy status to other drugs, medicaments and biological substances; W18.39XA Other fall on same level, initial encounter; Y93.89 Activity, other specified; Y92.89 Other specified places as the place of occurrence of the external cause; Y99.8 Other external cause status
CPT/HCPCS: 36415; 71045; 80053; 81001; 83735; 85007; 85025; 87428; 93005; 96361; 96374; J1100; J1650; J2405; J3490; J7030; J7050; J7060; J7120; U0003; 99285-25; G0378